=== PATIENT | male | born 1955 | race Caucasian/White ===

== ENCOUNTER 2017-09-09 16:05 | Inpatient (IN) | payer OTHER, SELFPAY ==
[2017-09-09] VITALS (11 sets, daily range): BP systolic 119–180; BP diastolic 73–110; PULSE 31–61; RESP 14–19; TEMP 36.6; O2SAT 94–100; BMI 34.9; BMI 36.1; BMI 36.2
--- NOTE | 2017-09-09 16:13 | RAD_ITS ---
STUDY: X-RAY CHEST REASON FOR EXAM: Male, 61 years old. Chest pain TECHNIQUE: Single AP portable view of the chest. COMPARISON: 02/05/2015. FINDINGS: The lungs are clear and expanded. There is no demonstrated pleural abnormality. Normal size heart. Normal mediastinum and stefanie. Normal visualized pulmonary arteries. Normal visualized aortic arch and descending thoracic aorta. Normal visualized thoracic spine. Normal visualized ribs, clavicles, and shoulders. There is no demonstrated abnormality of the visualized soft tissue structures of the upper abdomen. RAD/Chest 1 View (Portable) IMPRESSION: Normal x-ray examination of the chest. Electronically Signed: Yvon Oscar MD at 16:43 EDT , Service support ,
--- NOTE | 2017-09-09 16:13 | EKG12_ITS ---
Test Reason : CP Blood Pressure : / mmHG Vent. Rate : 051 BPM Atrial Rate : 357 BPM P-R Int : 000 ms QRS Dur : 088 ms QT Int : 394 ms P-R-T Axes : 000 035 050 degrees QTc Int : 363 ms Atrial fibrillation Abnormal ECG Confirmed by PRATIMA JENSEN MD ([id number]), acquisitions editor CHRISTINE MILLER ([id number] on 09/12/2017 3:48:08 PM Referred By: IFEOMA/ALEXANDRA Confirmed By:PRATIMA JENSEN MD
--- NOTE | 2017-09-09 16:35 | ED.VISSUMM ---
- ER Visit Summary Date of Service: 09/09/17 Chief Complaint: Palpitations History of Present Illness: The patient is a 61 M with history of coronary vascular disease status post stents by [address] George resents to the emergency palpitations. Patient states he has been having these intermittently for the past few months. He states that he has seen Dr. George, and was told that unless his heart rate was about 100 just a follow-up. The patient actually downloaded and cherelle for his iPhone. It does have a monitoring and evaluation advisor. Today, he was having symptoms and was able to get a heart rhythm. The patient was in atrial fibrillation at a rate of 50. He denies being lightheaded. He denies any chest pain. He states I just do not feel well when it happens. He has no history of atrial fibrillation. He denies any recent change in medications. Physical Examination: Vital signs reviewed General: Well-nourished, well-developed Head: Normocephalic, atraumatic Eyes: Pupils equal and reactive, extraocular muscles intact Neck, supple, no lymphadenopathy Heart: Irregular rate and rhythm Respiratory: No distress, clear bilaterally Abdomen: Soft, nontender, nondistended, no peritoneal signs Back: Nontender Extremities: Nontender, no edema, no cords Skin: Normal color no rash Neuro: Alert and oriented, no focal or lateralizing deficits Test Results: [] Emergency Department Course and Treatment: The patient presents with new onset atrial fibrillation. He was having some short pauses of approximately 3 seconds. The lowest that his heart would get in the upper 30s. He was never hypotensive. He complained of some generalized malaise, but had no chest pain or dyspnea. I do not feel this represents an acute coronary syndrome. Screening labs are unremarkable. I did discuss the patient with Dr. Coker. He was in agreement with plan for anticoagulation. We will hold the patient's Coreg. He will be admitted to telemetry for anticoagulation and further workup of his new onset A. fib. Treatment Plan: [] Disposition: Admission Impression: New onset atrial fibrillation This note was generated with [employer] software. It may contain incorrect words, spelling, and punctuation that were not noted in review of the chart prior to signing ED Disposition - Plan for ED Patient: Disposition: Acute Care Hospital [facility] Chief Complaint: Chest Pain
[2017-09-09] MEDS: 0.9% Normal Saline 1,000 ML 150 ML IV ×2 (16:42→23:56)
[2017-09-09] MEDS: Aspirin 81 MG TAB.CHEW 324 MG PO (16:42)
[2017-09-09 16:46] LABS: Absolute Lymphocyte Count 3.56 X10^3/ul (0.83-4.51); Absolute Neutrophil Count 4.4 X10^3/uL (2.0-7.7); Basophil# 0.04 X10^3/uL; Basophil% 0.4 % (0-1); Eosinophil# 0.33 X10^3/uL; Eosinophils% 3.6 % (0-5); Hematocrit 45.5 % (40-54); Hemoglobin 15.4 g/dl (13.0-16.5); Lymphocyte # 3.56 X10^3/ul (4.0); Lymphocyte % 38.3 % (19-41); Mean Corp Hgb Conc 33.8 g/gl (32-36); Mean Corpuscular Hgb 30.3 pg (27.0-32.0); Mean Corpuscular Volume 89.4 fL (80-94); Mean Platelet Vol. 10.2 fl (6.2-12.0); Monocyte# 0.93 X10^3/uL; Neutrophil # 4.39 X10^3/uL (2.7-7.7); Neutrophil % 47.3 % (47-70); POSITIVE COUNT NO; POSITIVE DIFFERENTIAL NO; POSITIVE MORPHOLOGY NO; Platelet Count 218 K/mm3 (150-450); RBC Distribution Width CV 13.5 % (11.6-14.6); RBC Distribution Width SD 43.8 fl (35.1-43.9); Red Blood Count 5.09 M/mm3 (4.6-6.2); White Blood Count 9.3 K/mm3 (4.4-11.0)
[2017-09-09 16:48] LABS: Prothrombin Time (Protime)PT. 13.1 SECONDS (11.7-14.9)
[2017-09-09 17:13] LABS: Anion Gap 6 (5-15); BUN 20 mg/dL (7-18); BUN/Creat Ratio 14.2 RATIO (10-20); Calcium,Total 9.1 mg/dL (8.5-10.1); Chloride 104 mmol/L (98-107); Creatinine, Serum 1.41 mg/dL (0.70-1.30); EST Glomerular Filtration Rate 54 mL/min (>60); Est Glom Filt Rate - Afr Amer 65 mL/min (>60); Estimated Creatinine Clearance 52.55 ml/min; Glucose 266 mg/dL (74-106); Potassium 3.6 mmol/L (3.5-5.1); Sodium Level 138 mmol/L (136-145); Thyroid Stim Hormone (TSH) 3.98 uIU/mL (0.358-3.74)
--- NOTE | 2017-09-09 18:03 | HP.PCM_ITS ---
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 transplanted heart: unspecified whether [place] or transplanted heart Associated angina: with unspecified angina Qualified Code (s): I25.119 - Atherosclerotic heart disease of [place] coronary artery with unspecified angina pectoris (6) PAD (peripheral artery disease) Status: Chronic History of Present Illness Date of Admission: 09/09/17 Chief Complaint: Palpitations The patient is a 61 year old M with PMHx of CAD s/p stent, hypertension, Type 2 DM, PAD s/p stent who follows with Dr. Robles, intermittently complaining of palpitations but any time an EKG is done in the doctor's office, it appears normal. 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 He has an cherelle on his phone which allows him to take his heart rate. 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 He used the cherelle and was told that he has atrial fibrillation. He decided to come to the ED. He denied any dizziness or orthopnea or PND or leg swelling. He also has history of chronic back pain and is on chronic pain medications. His vitals in the ED showed heart rates ranging between 39 and 57. His Blood Pressure has been stable. Labs are unremarkable except for CKD which appears to be his baseline. Chest X-ray is negative for any acute cardiopulmonary process. Past Medical History Past Medical History (Chronic Problems): Chronic Problems Type 2 diabetes mellitus (Chronic) Hypertension (Chronic) CAD (coronary artery disease) (Chronic) PAD (peripheral artery disease) (Chronic) Allergies adhesive Allergy (Verified 09/09/17 16:11) Unknown lisinopril Allergy (Verified 09/09/17 16:11) Unknown Penicillins Allergy (Verified 09/09/17 16:11) Unknown Home Medications: Ambulatory Orders Medication Instructions Recorded Aspirin [Aspirin, Baby] 81 mg PO DAILY@0800 02/07/13 Clopidogrel Bisulfate [Plavix] 75 mg PO DAILY 02/07/13 Hydrocodone/Acetaminophen [Vicodin 1 tablet PO Q4H PRN PRN 02/07/13 5/500] Lorazepam [Ativan] 0.5 mg PO BID PRN PRN 02/07/13 Nitroglycerin [Nitrostat] 0.4 mg SUBLINGUAL Q5M PRN 02/07/13 Cholecalciferol (Vitamin D3) 5,000 unit PO DAILY 01/16/14 [Vitamin D] Atorvastatin Calcium [Lipitor] 80 mg PO QHS 07/05/15 Carvedilol [Coreg (Beta Francisco)] 25 mg PO BID 07/05/15 Isosorbide Mononitrate [Isosorbide 60 mg PO DAILY 07/05/15 Mononitrate ER] Magnesium Chloride [Slow-Mag] 143 mg PO DAILY 07/05/15 Amlodipine [Norvasc] 10 mg PO DAILY #30 tablet 11/26/15 Insulin Glargine,Hum.rec.anlog 5 unit SQ QHS #1 ml 11/26/15 [Lantus] Dulaglutide [Trulicity] 1.5 mg SQ QWEEK 09/09/17 Gemfibrozil [Lopid] 300 mg PO BID 09/09/17 Hydrochlorothiazide 12.5 mg PO DAILY 09/09/17 Losartan Potassium 25 mg PO DAILY 09/09/17 Surgical History: - - right inguinal hernia, s/p stenst Psychiatric History: No pertinent psych hx Lives: Spouse/ Significant Other Smoking Status: Never smoker Tobacco Use: Non-smoker Alcohol: None Drugs: None - *Family History Paternal History Items: Heart Disease Maternal History Items: Unknown Review of Systems Constitutional: Denies: Anorexia, Chills, Fever, Night Sweats, Weakness, Weight Change Eyes: Denies: Blurred vision, Cataracts, Conjunctivae Inflammation, Double vision, Pain, Redness HEENT: Denies: Difficulty Hearing, Difficulty Swallowing, Head Aches, Hearing Changes, Sinus Congestion, Sinus Drainage Cardiovascular: Reports: Palpitations. Denies: Chest Pain, Claudication, Chest Pressure, Light Headedness, Orthopnea, Paroxysmal Noc. Dyspnea Respiratory: Denies: Cough, Hemoptysis, Shortness of breath at rest, Shortness of breath upon exertion, Sputum production Gastrointestinal: Denies: Abdominal Pain, Constipation, Hematemesis, Hematochezia, Nausea, Vomiting Genitourinary: Denies: Dysuria, Frequency, Incontinence Musculoskeletal: Denies: Joint Pain, Joint stiffness, Joint swelling, Joint Tenderness Skin: Denies: Pruritis, Rash, Wounds Neurological: Denies: Difficulty swallowing, Focal weakness, Numbness, Tingling Psychiatric: Denies: Anxiety, Depression, Homicidal Ideations, Suicidal Ideations Hematologic/ Lymphatic: Denies: Easy Bruising, Easy Bleeding VTE Information - Inpt Only VTE Present on Admission: No VTE Pharm Prophylaxis ordered?: Yes Patient Problems: Active and Suspected Problems Bradycardia (Acute) A-fib (Acute) - Physical Exam General: Alert, Oriented x3, Cooperative, No apparent distress HEENT: Atraumatic, PERRLA, EOMI, Normocephalic Oral: Moist Mucosa Neck: Supple, No JVD, Negative Carotid Bruits Lungs: Clear to auscultation, Normal air movement Cardiovascular: Regular rate, Normal S1, Normal S2, No murmurs, Irregular Rate Abdomen: Bowel Sounds Present, Soft, Non Tender, Non-Distended, No Hepato- splenomegaly Extremities: No edema Skin: No rashes, No breakdown Musculoskeletal: No Tenderness to Palpation of Joints or Extremities Lymphatic: No Cervical, Supraclavicular, or Inguinal Adenopathy Neurological: Cranial nerves II-XII grossly intact, Neuro grossly intact Psych/Mental Status: Normal Affect, Appropriate Vital Signs Temp Pulse Resp BP Pulse Ox 97.8 F 52 L 16 119/87 H 94 09/09/17 16:06 09/09/17 17:55 09/09/17 17:55 09/09/17 17:55 09/09/17 17:55 Oxygen Flow Rate (L/min) 2 Oxygen Delivery Method Nasal Cannula Weight: 104.326 kg Body Mass Index (BMI) 34.9 Laboratory Tests Past 24 Hrs 09/09/17 09/09/17 09/09/17 16:09 16:09 16:09 WBC 9.3 RBC 5.09 Hgb 15.4 Hct 45.5 MCV 89.4 MCH 30.3 MCHC 33.8 RDW 13.5 RDW Differential 43.8 Plt Count 218 MPV 10.2 Immature Gran % (Auto) 0.400 Neut % (Auto) 47.3 Lymph % (Auto) 38.3 Hardy % (Auto) 10.0 Eos % (Auto) 3.6 Baso % (Auto) 0.4 Absolute Neuts (auto) 4.4 Absolute Lymphs (auto) 3.56 Total Counted Not Reportable PT 13.1 INR 1.0 Sodium 138 Potassium 3.6 Chloride 104 Carbon Dioxide 28.0 Anion Gap 6 BUN 20 H Creatinine 1.41 H Estim Creat Clear Calc 52.55 Est GFR (MDRD) Af Amer 65 Est GFR (MDRD) Non-Af 54 L BUN/Creatinine Ratio 14.2 Glucose 266 H Calcium 9.1 Magnesium 2.0 Troponin I < 0.015 TSH 3.98 H Assessment/Plan All Active Problems Bradycardia (Acute) A-fib (Acute) Acute renal failure (Acute) 61 year old M with PMHx of CAD s/p stent, hypertension, Type 2 DM, PAD s/p stent who follows with Dr. Robles, intermittently complaining of palpitations but any time an EKG is done in the doctor's office, it appears normal. 1. Atrial fibrillation, newly diagnosed, CHADS score 3, Bradycardic, started on heparin IV drip Plan: Admit to PCU, continue on heparin drip, cardiology consult -Dr. Coker( ED already discussed with him), 2D echo, trend troponins 2. Bradycardia, EKG shows atrial fibrillation, on amlodipine and carvedilol, will hold both amlodipine and carvedilol, will follow up on 2D echo, cardiology consulted 3. Hypertension, controlled, continue home medication 4. CAD status post stent/PAD status post stent, on aspirin, Plavix, statins, isosorbide, beta-francisco on hold for now 5. Type II DM, on insulin, will continue home insulin regimen, with insulin sliding scale as well as Accu-Cheks 6. Hyperlipidemia, on statins 7. CKD stage III, creatinine is about his baseline, will continue to monitor 8. DVT prophylaxis -started on heparin drip Code Visit Inpatient E&M: 90045 Init Hosp L3
[2017-09-09 18:22] LABS: Partial Thromboplast Time 27.9 Seconds (24.1-36.2)
[2017-09-09] MEDS: Insulin Lispro 100 UNIT/ML INSULN.PEN SQ (22:27)
[2017-09-09] MEDS: Atorvastatin Calcium 80 MG Tablet PO (22:29)
[2017-09-09] MEDS: Gemfibrozil 600 MG Tablet 300 MG PO (22:30)
--- NOTE | 2017-09-09 22:45 | PCM.CONS.C ---
Problem List (1) A-fib Status: Acute Qualifiers: Atrial fibrillation type: paroxysmal Qualified Code(s): I48.0 - Paroxysmal atrial fibrillation (2) CAD (coronary artery disease) Status: Chronic Qualifiers: Coronary Disease-Associated Artery/Lesion type: unspecified vessel or lesion type [place] vs. transplanted heart: unspecified whether [place] or transplanted heart Associated angina: with unspecified angina Qualified Code(s): I25.119 - Atherosclerotic heart disease of [place] coronary artery with unspecified angina pectoris (3) S/P PTCA (percutaneous transluminal coronary angioplasty) Status: Acute (4) PAD (peripheral artery disease) Status: Chronic (5) HLD (hyperlipidemia) Status: Chronic (6) Hypertension Status: Chronic Qualifiers: Hypertension type: essential hypertension Qualified Code(s): I10 - Essential (primary) hypertension (7) Type 2 diabetes mellitus Status: Chronic Qualifiers: 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: 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 moth exterminator insulin use status Diabetes mellitus complication status: with unspecified complications Qualified Code(s): E11.8 - Type 2 diabetes mellitus with unspecified complications (8) Acute renal failure Status: Acute (9) Raynauds disease Status: Chronic Qualifiers: Raynaud?s-associated gangrene presence: without gangrene Qualified Code(s): I73.00 - Raynaud's syndrome without gangrene Reason for Consult Date of Consultation: 09/09/17 History of Present Illness: The patient is a 61 year old white 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 To the best of the patient's knowledge he has not been diagnosed with atrial fibrillation in the past. However based upon previous dobutamine stress echocardiogram report from 06/08/2011 and a previous 24-hour Holter monitor report from 06/08/2011 it appears the patient did have episodes of atrial fibrillation. He appears to be unaware of this. He states that he does sense at times his heart rate beating differently and/or slower. When this happens he does not feel good in the chest. He also notes his breathing is off . He has not necessarily had ongoing nausea, emesis, or diaphoresis. There has been no near syncope or syncope. He denies a history of orthopnea, PND, or peripheral pitting edema. He states these episodes may last for 1-2 days. They will eventually go back to normal. During these episodes he tries to become more active to increase his heart rate where he feels better. He recently purchased a portable device to attach to his smart phone . He was recording his heart rate today. He noted it was irregular and slow. He subsequently presented to [facility] ED for evaluation. There he was found to be in atrial fibrillation with a slow ventricular response with ventricular rates reported between 30 and 40 bpm. He was subsequently brought into the hospital for further evaluation and care. His initial troponin I level was negative. His initial ECG did not demonstrate additional acute ECG changes. A chest x-ray suggested no acute changes. [] Past Medical History Allergies/Adverse Reactions: Allergies adhesive Allergy (Verified 09/09/17 16:11) Unknown lisinopril Allergy (Verified 09/09/17 16:11) Unknown Penicillins Allergy (Verified 09/09/17 16:11) Unknown Home Medications: Ambulatory Orders Medication Instructions Recorded Aspirin [Aspirin, Baby] 81 mg PO DAILY@0800 02/07/13 Clopidogrel Bisulfate [Plavix] 75 mg PO DAILY 02/07/13 Hydrocodone/Acetaminophen [Vicodin 1 tablet PO Q4H PRN PRN 02/07/13 5/500] Lorazepam [Ativan] 0.5 mg PO BID PRN PRN 02/07/13 Nitroglycerin [Nitrostat] 0.4 mg SUBLINGUAL Q5M PRN 02/07/13 Cholecalciferol (Vitamin D3) 5,000 unit PO DAILY 01/16/14 [Vitamin D] Atorvastatin Calcium [Lipitor] 80 mg PO QHS 07/05/15 Carvedilol [Coreg (Beta Francisco)] 25 mg PO BID 07/05/15 Isosorbide Mononitrate [Isosorbide 60 mg PO DAILY 07/05/15 Mononitrate ER] Amlodipine [Norvasc] 10 mg PO DAILY #30 tablet 11/26/15 Insulin Glargine,Hum.rec.anlog 5 unit SQ QHS #1 ml 11/26/15 [Lantus] Dulaglutide [Trulicity] 1.5 mg SQ QWEEK 09/09/17 Gemfibrozil [Lopid] 300 mg PO BID 09/09/17 Hydrochlorothiazide 12.5 mg PO DAILY 09/09/17 Losartan Potassium 25 mg PO DAILY 09/09/17 Magnesium Oxide 500 mg PO DAILY 09/09/17 Past Medical History (Chronic Problems): Chronic Problems Type 2 diabetes mellitus (Chronic) Hypertension (Chronic) CAD (coronary artery disease) (Chronic) PAD (peripheral artery disease) (Chronic) HLD (hyperlipidemia) (Chronic) Raynauds disease (Chronic) Surgical History: angioplasty, - - right inguinal hernia, s/p stenst Psychiatric History: No pertinent psych hx - *Family History Paternal History Items: Heart Disease Maternal History Items: Unknown Lives: Spouse/ Significant Other Smoking Status: Never smoker Tobacco Use: Non-smoker Alcohol: None Drugs: None Review of Systems - Review of Systems General: Denies: Fever, Night Sweats, Fatigue Cardiovascular: Reports: Chest Discomfort, Shortness of Breath, Palpitations. Denies: Orthopnea, PND, Peripheral Edema, Lightheadedness, Dizziness, Near Syncope, Syncope Respiratory: Reports: Shortness of Breath. Denies: Cough, Sputum Production, Hemoptysis Gastrointestinal: Denies: Hematemesis, Hematochezia, Melena Genitourinary: Denies: Dysuria, Hematuria Skin: Denies: Rash Subjectve: This is a 61-year-old white male who appears resting comfortably at the moment in no acute distress. Objective: Vital Signs Temp Pulse Resp BP Pulse Ox 97.8 F 52 L 18 137/73 H 95 09/09/17 18:57 09/09/17 19:06 09/09/17 18:57 09/09/17 18:57 09/09/17 18:57 Oxygen Flow Rate (L/min) 2 Oxygen Delivery Method Room Air Weight: 238 lb Body Mass Index (BMI) 36.1 General: Healthy Appearing, Awake, Alert, Oriented x 3, Cooperative, No Acute Distress HEENT: Atraumatic, Normocephalic, PERRL, EOMI, Sclera Non Icteric Neck: Supple, Good ROM, No JVD Lungs: Clear to auscultation Cardiovascular: Irregular Rhythm, Normal S1, Normal S2 Vascular: No Carotid Bruits Abdomen: Bowel Sounds Present, Soft, Non Tender Extremities: No Cyanosis, No Clubbing, No edema Neurological: No Focal Motor or Sensory Deficit Psych/Mental Status: Appropriate, Normal Affect 09/09/17 19:25: Troponin I < 0.015 Rhythm: Atrial fibrillation with slow ventricular response EKG: As noted above Stress Test: 10/13/2015: Exercise tolerance test: Byron protocol: 5 minutes and 15 seconds: 70% predicted maximal heart rate: Peak blood pressure 158/72 mmHg: Peak MET capacity of 7 METs 06/08/2011: Dobutamine stress echocardiogram: Reported as negative for ischemia greater than 100% maximal predicted heart rate; atrial fibrillation noted at peak exercise and intermittent during recovery Cardiac Cath: [facility]: Unavailable for review PCI: [facility]: Unavailable for review Holter monitor: 06/08/2011: Sinus rhythm; occasional APD's; atrial fibrillation noted for first 10 minutes of recording and did not return ; occasional nocturnal atrial salvos which are nonconducted; rare VPD's; no ventricular tachycardia CXR: Preliminary evaluation: No acute cardiopulmonary disease process appreciated 1 please see official report Assessment/Plan 1. Atrial fibrillation with slow ventricular response The patient has atrial fibrillation with slow ventricular response which based upon symptoms and his past documentation appears to be paroxysmal. This may be related to a combination of the patient's age, hypertension, cardiovascular condition, etc. His slow ventricular response may be related to his beta-francisco therapy, however, underlying conduction system related disease cannot necessarily be excluded. At the moment based upon his slow ventricular response his beta blockers are being held. He has been placed on anticoagulant therapy with IV heparin. He will undergo laboratory follow-up, ECG follow-up, as well as an echocardiogram to evaluate his atrial size and his left ventricular size, wall motion, and systolic function. He will also undergo evaluation with a pharmacologic stress nuclear imaging study, as he states his peripheral vascular disease impairs him from walking on a treadmill, to evaluate for any obvious myocardial ischemia, based upon his symptoms and findings, that may be contributing to his underlying atrial dysrhythmias that would warrant reevaluation in the cardiac catheterization laboratory. Depending upon his clinical course, if there is no other etiology for his atrial fibrillation with slow ventricular response that is correctable, noting his need for beta-francisco therapy based upon his history of underlying CAD, etc., he may need to be considered for future permanent pacemaker placement. 2. CAD status post PCI-remote The patient states he is undergone evaluation and care at the [facility] Main campus with 2 separate diagnostic cardiac catheterization procedures requiring 2 separate PCI procedures. He has been on medical management. He will undergo evaluation care as noted above. 3. Peripheral vascular disease The patient has undergone peripheral vascular evaluation and PCI of the left lower extremity under the direction of Dr. Jakob Gomez. He states this peripheral vascular disease diagnosis does limit him with respect to his ambulatory abilities especially exercise abilities, etc. 4. Hyperlipidemia He will continue risk factor modification and care as deemed appropriate. 5. Hypertension His blood pressures will be monitored. He will continue medical management and follow-up. 6. Diabetes He will continue evaluation care per internal medicine. 7. Acute renal insufficiency His creatinine level is somewhat elevated. This will be followed during his hospitalization. His medications can be adjusted as needed. 8. Raynaud's phenomena He does state he has underlying Raynaud's phenomena. He is on amlodipine therapy at this time which may benefit him with respect to his Raynaud's phenomena as well as his other medical conditions. Comment: The above was discussed with the patient, his , and his sister. His case is also been previously discussed with the [facility] emergency department staff. This note was generated with [employer] software. It may contain incorrect words, spelling, and punctuation that were not noted in checking the note before signing.
--- NOTE | 2017-09-09 22:58 | CON.PCM_ITS ---
Problem List (1) A-fib Status: Acute Qualifiers: Atrial fibrillation type: paroxysmal Qualified Code(s): I48.0 - Paroxysmal atrial fibrillation (2) CAD (coronary artery disease) Status: Chronic Qualifiers: Coronary Disease-Associated Artery/Lesion type: unspecified vessel or lesion type [place] vs. transplanted heart: unspecified whether [place] or transplanted heart Associated angina: with unspecified angina Qualified Code (s): I25.119 - Atherosclerotic heart disease of [place] coronary artery with unspecified angina pectoris (3) S/P PTCA (percutaneous transluminal coronary angioplasty) Status: Acute (4) PAD (peripheral artery disease) Status: Chronic (5) HLD (hyperlipidemia) Status: Chronic (6) Hypertension Status: Chronic Qualifiers: Hypertension type: essential hypertension Qualified Code(s): I10 - Essential (primary) hypertension (7) Type 2 diabetes mellitus Status: Chronic Qualifiers: Diabetes mellitus chcf 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 Diabetes mellitus complication status: with unspecified complications Qualified Code(s): E11.8 - Type 2 diabetes mellitus with unspecified complications (8) Acute renal failure Status: Acute (9) Raynauds disease Status: Chronic Qualifiers: Raynaud?s-associated gangrene presence: without gangrene Qualified Code(s) : I73.00 - Raynaud's syndrome without gangrene Reason for Consult Date of Consultation: 09/09/17 History of Present Illness: The patient is a 61 year old white male [employer] employee with a past medical history of CAD, status post PCI, peripheral vascular disease status post peripheral vascular PCI of the left lower extremity, hyperlipidemia, hypertension, and diabetes mellitus who presents for evaluation of atrial fibrillation with slow ventricular response follows with Dr. Jose Robles his primary coordinator of health services. To the best of the patient's knowledge he has not been diagnosed with atrial fibrillation in the past. However based upon previous dobutamine stress echocardiogram report from 06/08/2011 and a previous 24-hour Holter monitor report from 06/08/2011 it appears the patient did have episodes of atrial fibrillation. He appears to be unaware of this. He states that he does sense at times his heart rate beating differently and/or slower. When this happens he does not feel good in the chest. He also notes his breathing is off . He has not necessarily had ongoing nausea, emesis, or diaphoresis. There has been no near syncope or syncope. He denies a history of orthopnea, PND, or peripheral pitting edema. He states these episodes may last for 1-2 days. They will eventually go back to normal. During these episodes he tries to become more active to increase his heart rate where he feels better. He recently purchased a portable device to attach to his smart phone . He was recording his heart rate today. He noted it was irregular and slow. He subsequently presented to [facility] ED for evaluation. There he was found to be in atrial fibrillation with a slow ventricular response with ventricular rates reported between 30 and 40 bpm. He was subsequently brought into the hospital for further evaluation and care. His initial troponin I level was negative. His initial ECG did not demonstrate additional acute ECG changes. A chest x-ray suggested no acute changes. [] Past Medical History Allergies/Adverse Reactions: Allergies adhesive Allergy (Verified 09/09/17 16:11) Unknown lisinopril Allergy (Verified 09/09/17 16:11) Unknown Penicillins Allergy (Verified 09/09/17 16:11) Unknown Home Medications: Ambulatory Orders Medication Instructions Recorded Aspirin [Aspirin, Baby] 81 mg PO DAILY@0800 02/07/13 Clopidogrel Bisulfate [Plavix] 75 mg PO DAILY 02/07/13 Hydrocodone/Acetaminophen [Vicodin 1 tablet PO Q4H PRN PRN 02/07/13 5/500] Lorazepam [Ativan] 0.5 mg PO BID PRN PRN 02/07/13 Nitroglycerin [Nitrostat] 0.4 mg SUBLINGUAL Q5M PRN 02/07/13 Cholecalciferol (Vitamin D3) 5,000 unit PO DAILY 01/16/14 [Vitamin D] Atorvastatin Calcium [Lipitor] 80 mg PO QHS 07/05/15 Carvedilol [Coreg (Beta Francisco)] 25 mg PO BID 07/05/15 Isosorbide Mononitrate [Isosorbide 60 mg PO DAILY 07/05/15 Mononitrate ER] Amlodipine [Norvasc] 10 mg PO DAILY #30 tablet 11/26/15 Insulin Glargine,Hum.rec.anlog 5 unit SQ QHS #1 ml 11/26/15 [Lantus] Dulaglutide [Trulicity] 1.5 mg SQ QWEEK 09/09/17 Gemfibrozil [Lopid] 300 mg PO BID 09/09/17 Hydrochlorothiazide 12.5 mg PO DAILY 09/09/17 Losartan Potassium 25 mg PO DAILY 09/09/17 Magnesium Oxide 500 mg PO DAILY 09/09/17 Past Medical History (Chronic Problems): Chronic Problems Type 2 diabetes mellitus (Chronic) Hypertension (Chronic) CAD (coronary artery disease) (Chronic) PAD (peripheral artery disease) (Chronic) HLD (hyperlipidemia) (Chronic) Raynauds disease (Chronic) Surgical History: angioplasty, - - right inguinal hernia, s/p stenst Psychiatric History: No pertinent psych hx - *Family History Paternal History Items: Heart Disease Maternal History Items: Unknown Lives: Spouse/ Significant Other Smoking Status: Never smoker Tobacco Use: Non-smoker Alcohol: None Drugs: None Review of Systems - Review of Systems General: Denies: Fever, Night Sweats, Fatigue Cardiovascular: Reports: Chest Discomfort, Shortness of Breath, Palpitations. Denies: Orthopnea, PND, Peripheral Edema, Lightheadedness, Dizziness, Near Syncope, Syncope Respiratory: Reports: Shortness of Breath. Denies: Cough, Sputum Production, Hemoptysis Gastrointestinal: Denies: Hematemesis, Hematochezia, Melena Genitourinary: Denies: Dysuria, Hematuria Skin: Denies: Rash Subjectve: This is a 61-year-old white male who appears resting comfortably at the moment in no acute distress. Objective: Vital Signs Temp Pulse Resp BP Pulse Ox 97.8 F 52 L 18 137/73 H 95 09/09/17 18:57 09/09/17 19:06 09/09/17 18:57 09/09/17 18:57 09/09/17 18:57 Oxygen Flow Rate (L/min) 2 Oxygen Delivery Method Room Air Weight: 238 lb Body Mass Index (BMI) 36.1 General: Healthy Appearing, Awake, Alert, Oriented x 3, Cooperative, No Acute Distress HEENT: Atraumatic, Normocephalic, PERRL, EOMI, Sclera Non Icteric Neck: Supple, Good ROM, No JVD Lungs: Clear to auscultation Cardiovascular: Irregular Rhythm, Normal S1, Normal S2 Vascular: No Carotid Bruits Abdomen: Bowel Sounds Present, Soft, Non Tender Extremities: No Cyanosis, No Clubbing, No edema Neurological: No Focal Motor or Sensory Deficit Psych/Mental Status: Appropriate, Normal Affect 09/09/17 19:25: Troponin I < 0.015 Rhythm: Atrial fibrillation with slow ventricular response EKG: As noted above Stress Test: 10/13/2015: Exercise tolerance test: Byron protocol: 5 minutes and 15 seconds: 70 % predicted maximal heart rate: Peak blood pressure 158/72 mmHg: Peak MET capacity of 7 METs 06/08/2011: Dobutamine stress echocardiogram: Reported as negative for ischemia greater than 100% maximal predicted heart rate; atrial fibrillation noted at peak exercise and intermittent during recovery Cardiac Cath: [facility]: Unavailable for review PCI: [facility]: Unavailable for review Holter monitor: 06/08/2011: Sinus rhythm; occasional APD's; atrial fibrillation noted for first 10 minutes of recording and did not return ; occasional nocturnal atrial salvos which are nonconducted; rare VPD's; no ventricular tachycardia CXR: Preliminary evaluation: No acute cardiopulmonary disease process appreciated 1 please see official report Assessment/Plan 1. Atrial fibrillation with slow ventricular response The patient has atrial fibrillation with slow ventricular response which based upon symptoms and his past documentation appears to be paroxysmal. This may be related to a combination of the patient's age, hypertension, cardiovascular condition, etc. His slow ventricular response may be related to his beta-francisco therapy, however, underlying conduction system related disease cannot necessarily be excluded. At the moment based upon his slow ventricular response his beta blockers are being held. He has been placed on anticoagulant therapy with IV heparin. He will undergo laboratory follow-up, ECG follow-up, as well as an echocardiogram to evaluate his atrial size and his left ventricular size, wall motion, and systolic function. He will also undergo evaluation with a pharmacologic stress nuclear imaging study, as he states his peripheral vascular disease impairs him from walking on a treadmill, to evaluate for any obvious myocardial ischemia, based upon his symptoms and findings, that may be contributing to his underlying atrial dysrhythmias that would warrant reevaluation in the cardiac catheterization laboratory. Depending upon his clinical course, if there is no other etiology for his atrial fibrillation with slow ventricular response that is correctable, noting his need for beta-francisco therapy based upon his history of underlying CAD, etc. , he may need to be considered for future permanent pacemaker placement. 2. CAD status post PCI-remote The patient states he is undergone evaluation and care at the [facility] Main campus with 2 separate diagnostic cardiac catheterization procedures requiring 2 separate PCI procedures. He has been on medical management. He will undergo evaluation care as noted above. 3. Peripheral vascular disease The patient has undergone peripheral vascular evaluation and PCI of the left lower extremity under the direction of Dr. Jakob Gomez. He states this peripheral vascular disease diagnosis does limit him with respect to his ambulatory abilities especially exercise abilities, etc. 4. Hyperlipidemia He will continue risk factor modification and care as deemed appropriate. 5. Hypertension His blood pressures will be monitored. He will continue medical management and follow-up. 6. Diabetes He will continue evaluation care per internal medicine. 7. Acute renal insufficiency His creatinine level is somewhat elevated. This will be followed during his hospitalization. His medications can be adjusted as needed. 8. Raynaud's phenomena He does state he has underlying Raynaud's phenomena. He is on amlodipine therapy at this time which may benefit him with respect to his Raynaud's phenomena as well as his other medical conditions. Comment: The above was discussed with the patient, his , and his sister. His case is also been previously discussed with the [facility] emergency department staff. This note was generated with IFTTTation software. It may contain incorrect words, spelling, and punctuation that were not noted in checking the note before signing.
[2017-09-09] MEDS: Bisacodyl 5 MG Tablet PO (23:02)
[2017-09-10] VITALS (24 sets, daily range): BP systolic 106–135; BP diastolic 58–85; PULSE 30–73; RESP 12–16; TEMP 36.4–36.7; O2SAT 92–97
[2017-09-10 01:41] LABS: Bedside Glucose 154 mg/dL (70-110)
[2017-09-10 05:45] LABS: Hematocrit 43.8 % (40-54); Hemoglobin 14.2 g/dl (13.0-16.5); Mean Corp Hgb Conc 32.4 g/gl (32-36); Mean Corpuscular Hgb 29.3 pg (27.0-32.0); Mean Corpuscular Volume 90.5 fL (80-94); Mean Platelet Vol. 9.9 fl (6.2-12.0); Platelet Count 176 K/mm3 (150-450); RBC Distribution Width CV 13.5 % (11.6-14.6); RBC Distribution Width SD 44.5 fl (35.1-43.9); Red Blood Count 4.84 M/mm3 (4.6-6.2); White Blood Count 9.2 K/mm3 (4.4-11.0)
--- NOTE | 2017-09-10 05:55 | EKG12_ITS ---
Test Reason : AM EKG Blood Pressure : / mmHG Vent. Rate : 070 BPM Atrial Rate : 070 BPM P-R Int : 184 ms QRS Dur : 096 ms QT Int : 394 ms P-R-T Axes : 057 038 045 degrees QTc Int : 425 ms Normal sinus rhythm Normal ECG When compared with ECG of 09-SEP-2017 19:04, MANUAL COMPARISON REQUIRED, DATA IS UNCONFIRMED Confirmed by CAMILA JAEGER, PRATIMA ([id number]), book editor CHRISTINE MILLER ([id number]) on 09/13/2017 10:16:28 AM Referred By: TAMRA Confirmed By:PRATIMA JENSEN MD
--- NOTE | 2017-09-10 05:55 | ECHOD_ITS ---
Reason For Study: Dyspnea/SOB Procedure This was a 2D Doppler, Color Flow transthoracic echocardiogram. Exam performed portable in patient room. Left Ventricle Normal LV size. Left ventricular systolic function is normal. The estimated ejection fraction is 60 %. No evidence for diastolic dysfunction. No regional wall motion abnormalities noted. Right Ventricle Normal RV size. Normal systolic function. Atria Normal left atrium. Normal right atrium. Mitral Valve Normal mitral valve. Tricuspid Valve Normal tricuspid valve. Unable to estimate RV systolic pressure due to inadequate jet, pulmonary artery pressure probably normal. Aortic Valve Normal aortic valve. Trisinus/trileaflet aortic valve. Pulmonic Valve Normal pulmonic valve. Great Vessels Normal aortic root. The pulmonary artery is normal size. Normal inferior vena cava. Pericardium/Pleural No pericardial effusion. MMode/2D Measurements & Calculations LVIDd: 4.8 cm IVSd: 0.93 cm Ao root diam: 3.5 cm LVIDs: 3.4 cm LVPWd: 0.92 cm RVDd: 2.9 cm FS: 29.6 % LAV(MOD-bp): 22.9 ml EDV(MOD-sp4): 72.2 ml SV(MOD-sp4): 39.3 ml LAV(MOD-bp) Indexed: 10.4 ml/m2 ESV(MOD-sp4): 32.9 ml LAV(MOD-sp2): 32.5 ml EF(MOD-sp4): 54.4 % LAV(MOD-sp4): 15.2 ml LA A4 area: 9.3 cm2 RA A4 area: 9.4 cm2 Doppler Measurements & Calculations MV E max ozzy: 71.8 cm/sec Lat Peak E' Ozzy: 8.1 cm/sec Med Peak E' Ozzy: 6.2 cm/sec MV A max ozzy: 61.2 cm/sec E/E' lat: 8.9 E/E' med: 11.6 MV E/A: 1.2 Ao V2 max: 106.0 cm/sec LV V1 max: 87.2 cm/sec PA V2 max: 67.3 cm/sec Ao max P.5 mmHg LV V1 max P.0 mmHg Ao V2 mean: 71.6 cm/sec Ao mean P.4 mmHg Ao V2 VTI: 19.8 cm Interpretation Summary Normal LV size. Left ventricular systolic function is normal. The estimated ejection fraction is 60 %. No evidence for diastolic dysfunction. Ordering Physician: Felecia Roach Referring Physician: Andrew Gomez Performed By: Milagro Contreras, WILIAM, RVT
[2017-09-10 05:59] LABS: International Normalized Ratio 1.1; Prothrombin Time (Protime)PT. 14.1 SECONDS (11.7-14.9)
[2017-09-10 06:01] LABS: Partial Thromboplast Time 69.2 Seconds (24.1-36.2)
[2017-09-10 06:09] LABS: Anion Gap 7 (5-15); BUN 20 mg/dL (7-18); BUN/Creat Ratio 16.1 RATIO (10-20); Calcium,Total 8.3 mg/dL (8.5-10.1); Chloride 107 mmol/L (98-107); Creatinine, Serum 1.24 mg/dL (0.70-1.30); EST Glomerular Filtration Rate 63 mL/min (>60); Est Glom Filt Rate - Afr Amer 76 mL/min (>60); Estimated Creatinine Clearance 59.76 ml/min; Glucose 212 mg/dL (74-106); Potassium 3.8 mmol/L (3.5-5.1); Sodium Level 142 mmol/L (136-145)
[2017-09-10] MEDS: Clopidogrel Bisulfate 75 MG Tablet PO (06:22)
[2017-09-10] MEDS: Aspirin 81 MG TAB.CHEW PO (06:22)
[2017-09-10] MEDS: Losartan Potassium 25 MG Tablet PO (06:22)
[2017-09-10 06:25] LABS: Scan Indicated on CBC? Y/N NO
[2017-09-10] MEDS: 0.9% Normal Saline 1,000 ML 150 ML IV (06:33)
--- NOTE | 2017-09-10 08:03 | EKG12_ITS ---
Test Reason : RHY CHANGE Blood Pressure : / mmHG Vent. Rate : 067 BPM Atrial Rate : 067 BPM P-R Int : 222 ms QRS Dur : 098 ms QT Int : 398 ms P-R-T Axes : 056 043 048 degrees QTc Int : 420 ms Sinus rhythm with 1st degree A-V block Otherwise normal ECG When compared with ECG of 10-SEP-2017 08:04, MANUAL COMPARISON REQUIRED, DATA IS UNCONFIRMED Confirmed by CAMILA JAEGER, PRATIMA ([id number]), editor news CHRISTINE MILLER ([id number]) on 09/13/2017 10:14:54 AM Referred By: KONG Confirmed By:PRATIMA JENSEN MD
[2017-09-10 08:35] LABS: Bedside Glucose 200 mg/dL (70-110)
[2017-09-10] MEDS: Isosorbide Mononitrate 60 MG Tablet PO (10:35)
[2017-09-10] MEDS: Gemfibrozil 600 MG Tablet 300 MG PO ×2 (10:35→22:39)
[2017-09-10] MEDS: Magnesium Oxide 400 MG Tablet PO ×2 (10:36→16:39)
[2017-09-10] MEDS: HYDROCHLOROTHIAZIDE 12.5 MG CAPSULE PO (10:36)
[2017-09-10 11:20] LABS: Bedside Glucose 196 mg/dL (70-110)
--- NOTE | 2017-09-10 12:03 | STRESSREP ---
Stress Test Report Pharmacologic myocardial perfusion stress test. 61-year-old man with a history of atrial fibrillation and coronary artery disease. Stress protocol: Resting EKG demonstrates normal sinus rhythm with a rate of 66 bpm normal intervals are noted. 0.4 mg regadenoson was infused per usual protocol followed by rapid intravenous saline flush injection continuous EKG monitoring was performed. The patient maintained sinus rhythm throughout the recording. The maximum heart rate attained was 88 bpm which was 55% of maximum predicted heart rate the maximum workload was 1 metabolic equivalent. At rest there were no ST or T-wave changes noted suggest abnormal flow reserve at peak infusion no ST or T-wave changes were noted suggest abnormal flow reserve. The resting blood pressure was 162/92 with a final blood pressure 140/82. Myocardial perfusion protocol. 14.3 mCi of technetium 99m sestamibi was injected at rest. 0.4 mg regadenoson was infused per usual protocol peak infusion 44.6 mCi of technetium 99m sestamibi was injected stress images were obtained stress and rest images were reconstructed and compared in the short axis vertical long horizontal long axis. Gated images were also obtained Perfusion SPECT analysis. Review of the stress images demonstrate normal perfusion noted in the septum anterior wall and inferior wall. A portion of the inferolateral wall of the medium size has a defect present on the stress images with moderate improvement on the resting images suggesting a moderate amount of inferolateral ischemia. Gated SPECT analysis: The gated ejection fraction is noted to be 59%. Conclusion: Abnormal pharmacologic myocardial perfusion stress test with evidence of inferolateral ischemia and a moderate zone. Preserved ejection fraction.
--- NOTE | 2017-09-10 12:09 | PCM.PN.CARD ---
Subjectve: The patient is awake and alert. He denies ongoing chest discomfort or difficulty breathing at this time. He states he was able to sense his rhythm returning to normal rhythm. When it does he feels better. Objective: Vital Signs Temp Pulse Resp BP Pulse Ox 98.0 F 71 16 135/85 H 94 09/10/17 10:36 09/10/17 10:50 09/10/17 10:36 09/10/17 10:36 09/10/17 10:36 Oxygen Flow Rate (L/min) 2 Oxygen Delivery Method Room Air Weight: 238 lb 8.642 oz Body Mass Index (BMI) 36.1 Intake and Output for Last 24 Hours 09/08/17 09/09/17 09/10/17 23:59 23:59 23:59 Intake Total 1186.9 / 1186.9 1015 / 1015 Balance 1186.9 / 1186.9 1015 / 1015 General: Awake, Alert, Oriented x 3, Cooperative, No Acute Distress, Obese HEENT: Atraumatic, Normocephalic, PERRL, EOMI, Sclera Non Icteric Oral: Moist Mucosa Neck: Supple, Good ROM, No JVD Lungs: Clear to auscultation Cardiovascular: Regular Rhythm, Normal S1, Normal S2 Vascular: No Carotid Bruits Abdomen: Bowel Sounds Present, Soft Extremities: No Cyanosis, No Clubbing, No edema Neurological: No Focal Motor or Sensory Deficit Psych/Mental Status: Appropriate, Normal Affect 09/09/17 19:25: Troponin I < 0.015 09/09/17 22:05: Troponin I < 0.015 09/10/17 00:20: APTT 60.0 H 09/10/17 05:10: Sodium 142, Potassium 3.8, Chloride 107, Carbon Dioxide 28.0, Anion Gap 7, BUN 20 H, Creatinine 1.24, Est GFR (MDRD) Af Amer 76, Est GFR (MDRD) Non-Af 63, BUN/Creatinine Ratio 16.1, Glucose 212 H, Calcium 8.3 L 09/10/17 05:10: WBC 9.2, RBC 4.84, Hgb 14.2, Hct 43.8, MCV 90.5, MCH 29.3, MCHC 32.4, RDW 13.5, RDW Differential 44.5 H, Plt Count 176, MPV 9.9 09/10/17 05:10: PT 14.1, INR 1.1, APTT 69.2 H Rhythm: Sinus rhythm EKG: Sinus rhythm ECHO: Pending Stress Test: Preliminary report: Findings compatible with inferolateral myocardial ischemia: Please see official report Medical Necessity - Tobacco Use Smoking Status: Never smoker Tobacco Use: Non-smoker Assessment/Plan 1. Atrial fibrillation with slow ventricular response The patient has atrial fibrillation with slow ventricular response which based upon symptoms and his past documentation appears to be paroxysmal. This may be related to a combination of the patient's age, hypertension, cardiovascular condition, etc. His slow ventricular response may be related to his beta-nico therapy, however, underlying conduction system related disease cannot necessarily be excluded. At the moment based upon his slow ventricular response his beta blockers are being held. He has been placed on anticoagulant therapy with IV heparin. Has undergone additional evaluation with a pharmacologic stress nuclear imaging study. This has raised concerns of inferolateral myocardial ischemia. Thus he has been recommended for further evaluation with diagnostic cardiac catheterization. The procedure and risks were discussed with him. He was agreeable to this approach. Depending upon his clinical course, if there is no other etiology for his atrial fibrillation with slow ventricular response that is correctable, noting his need for beta-nico therapy based upon his history of underlying CAD, etc., he may need to be considered for future permanent pacemaker placement. 2. CAD status post PCI-remote The patient states he is undergone evaluation and care at the [facility] Main campus with 2 separate diagnostic cardiac catheterization procedures requiring 2 separate PCI procedures. He has been on medical management. He will continue medical management as deemed appropriate during this time. He will undergo evaluation as noted above. 3. Peripheral vascular disease The patient has undergone peripheral vascular evaluation and PCI of the left lower extremity under the direction of Dr. Jakob Gomez. He states this peripheral vascular disease diagnosis does limit him with respect to his ambulatory abilities especially exercise abilities, etc. 4. Hyperlipidemia He will continue risk factor modification and care as deemed appropriate. 5. Hypertension His blood pressures will be monitored. He will continue medical management and follow-up. 6. Diabetes He will continue evaluation care per internal medicine. 7. Acute renal insufficiency His creatinine level is improved today. This will be followed during his hospitalization. His medications can be adjusted as needed. 8. Raynaud's phenomena He does state he has underlying Raynaud's phenomena. He is on amlodipine therapy at this time which may benefit him with respect to his Raynaud's phenomena as well as his other medical conditions. Comment: The above was discussed with the patient, his , and his sister. His case is also been discussed with the [facility] staff. This note was generated with [employer] dictation software. It may contain incorrect words, spelling, and punctuation that were not noted in checking the note before signing.
--- NOTE | 2017-09-10 12:13 | PN.CARD_ITS ---
Subjectve: The patient is awake and alert. He denies ongoing chest discomfort or difficulty breathing at this time. He states he was able to sense his rhythm returning to normal rhythm. When it does he feels better. Objective: Vital Signs Temp Pulse Resp BP Pulse Ox 98.0 F 71 16 135/85 H 94 09/10/17 10:36 09/10/17 10:50 09/10/17 10:36 09/10/17 10:36 09/10/17 10:36 Oxygen Flow Rate (L/min) 2 Oxygen Delivery Method Room Air Weight: 238 lb 8.642 oz Body Mass Index (BMI) 36.1 Intake and Output for Last 24 Hours 09/08/17 09/09/17 09/10/17 23:59 23:59 23:59 Intake Total 1186.9 / 1186.9 1015 / 1015 Balance 1186.9 / 1186.9 1015 / 1015 General: Awake, Alert, Oriented x 3, Cooperative, No Acute Distress, Obese HEENT: Atraumatic, Normocephalic, PERRL, EOMI, Sclera Non Icteric Oral: Moist Mucosa Neck: Supple, Good ROM, No JVD Lungs: Clear to auscultation Cardiovascular: Regular Rhythm, Normal S1, Normal S2 Vascular: No Carotid Bruits Abdomen: Bowel Sounds Present, Soft Extremities: No Cyanosis, No Clubbing, No edema Neurological: No Focal Motor or Sensory Deficit Psych/Mental Status: Appropriate, Normal Affect 09/09/17 19:25: Troponin I < 0.015 09/09/17 22:05: Troponin I < 0.015 09/10/17 00:20: APTT 60.0 H 09/10/17 05:10: Sodium 142, Potassium 3.8, Chloride 107, Carbon Dioxide 28.0, Anion Gap 7, BUN 20 H, Creatinine 1.24, Est GFR (MDRD) Af Amer 76, Est GFR (MDRD ) Non-Af 63, BUN/Creatinine Ratio 16.1, Glucose 212 H, Calcium 8.3 L 09/10/17 05:10: WBC 9.2, RBC 4.84, Hgb 14.2, Hct 43.8, MCV 90.5, MCH 29.3, MCHC 32.4, RDW 13.5, RDW Differential 44.5 H, Plt Count 176, MPV 9.9 09/10/17 05:10: PT 14.1, INR 1.1, APTT 69.2 H Rhythm: Sinus rhythm EKG: Sinus rhythm ECHO: Pending Stress Test: Preliminary report: Findings compatible with inferolateral myocardial ischemia: Please see official report Medical Necessity - Tobacco Use Smoking Status: Never smoker Tobacco Use: Non-smoker Assessment/Plan 1. Atrial fibrillation with slow ventricular response The patient has atrial fibrillation with slow ventricular response which based upon symptoms and his past documentation appears to be paroxysmal. This may be related to a combination of the patient's age, hypertension, cardiovascular condition, etc. His slow ventricular response may be related to his beta-nico therapy, however, underlying conduction system related disease cannot necessarily be excluded. At the moment based upon his slow ventricular response his beta blockers are being held. He has been placed on anticoagulant therapy with IV heparin. Has undergone additional evaluation with a pharmacologic stress nuclear imaging study. This has raised concerns of inferolateral myocardial ischemia. Thus he has been recommended for further evaluation with diagnostic cardiac catheterization. The procedure and risks were discussed with him. He was agreeable to this approach. Depending upon his clinical course, if there is no other etiology for his atrial fibrillation with slow ventricular response that is correctable, noting his need for beta-nico therapy based upon his history of underlying CAD, etc. , he may need to be considered for future permanent pacemaker placement. 2. CAD status post PCI-remote The patient states he is undergone evaluation and care at the [facility] Main campus with 2 separate diagnostic cardiac catheterization procedures requiring 2 separate PCI procedures. He has been on medical management. He will continue medical management as deemed appropriate during this time. He will undergo evaluation as noted above. 3. Peripheral vascular disease The patient has undergone peripheral vascular evaluation and PCI of the left lower extremity under the direction of Dr. Jakob Gomez. He states this peripheral vascular disease diagnosis does limit him with respect to his ambulatory abilities especially exercise abilities, etc. 4. Hyperlipidemia He will continue risk factor modification and care as deemed appropriate. 5. Hypertension His blood pressures will be monitored. He will continue medical management and follow-up. 6. Diabetes He will continue evaluation care per internal medicine. 7. Acute renal insufficiency His creatinine level is improved today. This will be followed during his hospitalization. His medications can be adjusted as needed. 8. Raynaud's phenomena He does state he has underlying Raynaud's phenomena. He is on amlodipine therapy at this time which may benefit him with respect to his Raynaud's phenomena as well as his other medical conditions. Comment: The above was discussed with the patient, his , and his sister. His case is also been discussed with the [facility] staff. This note was generated with [employer] dictation software. It may contain incorrect words, spelling, and punctuation that were not noted in checking the note before signing.
--- NOTE | 2017-09-10 12:35 | CASEMGMT ---
According to [facility] website, the following are in-network tertiary facilities: [facility], [place], [facility], [place], [facility], [facility], [facility], [place], [facility], and . Vidal CORMIER CM
[2017-09-10] MEDS: 0.9% Normal Saline 1,000 ML 75 ML IV (14:11)
--- NOTE | 2017-09-10 14:17 | PCM.PROGNOTE ---
Patient Problems: Active and Suspected Problems Bradycardia (Acute) A-fib (Acute) S/P PTCA (percutaneous transluminal coronary angioplasty) (Acute) Subjective: Pt resting comfortably in bed pre cath. No further palpitations or heaviness. Not SOB. - Physical Exam General: Alert, Oriented x3, Cooperative HEENT: Atraumatic, PERRLA, EOMI, Normocephalic Neck: Supple, No JVD, Negative Carotid Bruits Lungs: Clear to auscultation, Normal air movement Cardiovascular: Regular rate, No murmurs Abdomen: Bowel Sounds Present, Soft, Non Tender Extremities: No edema, Capillary Refill Less than 3 Seconds Skin: No rashes, No breakdown Musculoskeletal: No Tenderness to Palpation of Joints or Extremities Neurological: Cranial nerves II-XII grossly intact Psych/Mental Status: Normal Affect, Appropriate, Alert and oriented to time, place, person, mood and affect Vital Signs Temp Pulse Resp BP Pulse Ox 97.5 F L 68 16 111/66 93 09/10/17 14:15 09/10/17 14:15 09/10/17 14:15 09/10/17 14:15 09/10/17 14:15 Oxygen Flow Rate (L/min) 2 Oxygen Delivery Method Room Air Weight: 108.2 kg Body Mass Index (BMI) 36.1 Intake and Output for Last 24 Hours 09/08/17 09/09/17 09/10/17 23:59 23:59 23:59 Intake Total 1186.9 / 1186.9 2054 Balance 1186.9 / 1186.9 2054 Laboratory Tests Past 24 Hrs 09/09/17 09/09/17 09/10/17 19:25 22:05 00:20 WBC RBC Hgb Hct MCV MCH MCHC RDW RDW Differential Plt Count MPV PT INR APTT 60.0 H Sodium Potassium Chloride Carbon Dioxide Anion Gap BUN Creatinine Estim Creat Clear Calc Est GFR (MDRD) Af Amer Est GFR (MDRD) Non-Af BUN/Creatinine Ratio Glucose Calcium Troponin I < 0.015 < 0.015 Free T4 09/10/17 09/10/17 09/10/17 05:10 05:10 05:10 WBC 9.2 RBC 4.84 Hgb 14.2 Hct 43.8 MCV 90.5 MCH 29.3 MCHC 32.4 RDW 13.5 RDW Differential 44.5 H Plt Count 176 MPV 9.9 PT 14.1 INR 1.1 APTT 69.2 H Sodium 142 Potassium 3.8 Chloride 107 Carbon Dioxide 28.0 Anion Gap 7 BUN 20 H Creatinine 1.24 Estim Creat Clear Calc 59.76 Est GFR (MDRD) Af Amer 76 Est GFR (MDRD) Non-Af 63 BUN/Creatinine Ratio 16.1 Glucose 212 H Calcium 8.3 L Troponin I Free T4 09/10/17 05:10 WBC RBC Hgb Hct MCV MCH MCHC RDW RDW Differential Plt Count MPV PT INR APTT Sodium Potassium Chloride Carbon Dioxide Anion Gap BUN Creatinine Estim Creat Clear Calc Est GFR (MDRD) Af Amer Est GFR (MDRD) Non-Af BUN/Creatinine Ratio Glucose Calcium Troponin I Free T4 1.20 POC Glucose 09/10/17 09/10/17 09/09/17 10:57 06:46 22:26 POC Glucose 196 H 200 H 154 H Medical Necessity - Tobacco Use Smoking Status: Never smoker Tobacco Use: Non-smoker Assessment/Plan All Active Problems Bradycardia (Acute) A-fib (Acute) S/P PTCA (percutaneous transluminal coronary angioplasty) (Acute) Acute renal failure (Acute) 1. Chest heaviness with abnormal stress test and underlying CAD - Cath today - multivessel CAD with high grade stenosis of the LAD/circ and stenosis distal to the patent prior stents per discussion with Dr. Coker. Tx to [facility] initiated. Contine asa, ARB, statin, low dose coreg. 2. Paroxysmal AFib with bradycardia - converted with held coret, restarted at much lower dose. Stable. 3. T2DM - lantus, ssi, trulicity held. 4. PAD - hx leg stents. 5. HTN - stable. DVT ppx: heparin drip discontinued. will need cabg DC planning: Tx to [facility] when bed available. Accepted by Dr. Rebolledo.
[2017-09-10] MEDS: HYDROcodone Bitartrate/Apap 5/325 Tablet PO (16:38)
[2017-09-10] MEDS: Carvedilol 3.125 MG TABLET PO (16:39)
[2017-09-10 16:55] LABS: Bedside Glucose 140 mg/dL (70-110)
--- NOTE | 2017-09-10 17:08 | CL.D_ITS ---
Patient Name: NOMAN STONE Study Date: 09/10/2017 Performing: Tex Coker MD Ht: 68 inches 173 cm : 1955 Wt: 238.4 lbs 108 kg Age: 61 Gender: male BSA: 2.2 PROCEDURE(S) PERFORMED [id number] CLINICAL PROFILE AND INDICATIONS Indications: Cardiac Arrythmia Heart Failure: None Stress/Imaging Stress Test w/SPECT MPI: Yes Result: PositiveStress Test with SPECT MPI: Positive Angina Classification Anginal Classification w/in 2 Weeks: CCS IV CAD Presentations: Other: Chest discomfort; shortness of breath; palpitations CONCLUSIONS Elevated Left Ventricular End Diastolic Pressure Normal LV size, wall motion,and systolic function LVEF: by LV gram 55 % Sycuan Multivessel CAD RECOMMENDATIONS Risk factor modification Medical therapy Surgery consult for coronary revascularization DESCRIPTION OF PROCEDURE The patient arrived to the procedure lab. The risks and benefits of the procedure as well as a full d escription of our services here and current unavailability of surgical backup were fully explained to the patient and/or their significant other prior to the catheterization. The Timeout was completed, verifying the correct patient and procedure. The patient's procedural site was prepped and draped in the usual fashion. Local anesthetic was given subcutaneously to right groin region with Lidocaine 2%. Using a modified Seldinger technique, arterial access was obtained via the right femoral artery, a 4 Fr sheath was inserted Left Coronary Artery selective angiography was performed in multiple views us ing a 4 Fr. JL5 catheter. Left Coronary Artery selective angiography was performed in multiple views using a 4 Fr. JL4 catheter. Right Coronary Artery selective angiography was then performed in multipl e views using a 4 Fr. 3DRC catheter. Left Ventriculography was performed in HICKEY projection using a 4 Fr. Pigtail catheter. LV to AO pullback pressures were then recorded. CORONARY ANGIOGRAPHY DOMINANCE: Right Dominant LEFT HEART ASSESSMENT Left Ventricular Ejection Fraction: by LV Gram 55 % Normal LV wall motion Elevated Left Ventricular End Diastolic Pressure LVEDP: 25 mmHg LEFT MAIN: Mild calcification, Mild luminal irregularities LEFT ANTERIOR DECENDING ARTERY: PROX LAD: Mild calcification, 50 % Stenosis MID LAD: 85 % Stenosis DIAGONAL 1: Proximal - Mild luminal irregularities CIRCUMFLEX ARTERY: PROX CIRC: Mild calcification MID CIRC: Mild luminal irregularities OM 1: Proximal - small caliber vessel: subtotally occluded OM 2: Proximal - 85 % Stenosis RIGHT CORONARY ARTERY: PROX RCA: Previously placed stent has an instent minimal luminal irregularities MID RCA: Previously placed stent has an instent minimal luminal irregularities DISTAL RCA: Previously placed stent has an instent minimal luminal irregularities RT PDA: Mid - Serial: Eccentric: 85 % Stenosis RIGHT AV SEGMENT: Ostial: subtotal occlusion COLLATERAL FLOW: Collateral flow from Left to Right VALVE FINDINGS: Normal Aortic Valve function Normal Mitral Valve function AORTIC ROOT: Angiographically normal COMPLICATIONS No Complications PROCEDURE MEDICATIONS Versed 1 mg IV Fentanyl 50 mcg IV Fentanyl 50 mcg IV Oxygen: 2 L/min via nasal cannula SUMMARY OF HEMODYNAMIC DATA Time AIR REST ECG 12:36:01 AO 125/88 (105) SA 12:55:17 LV 132/15, 32 13:10:30 LV 132/16, 25 13:10:37 LV 137/17, 25 13:11:16 LV 141/12, 30 13:13:02 LVp 133/10, 28 13:13:13 AOp 144/84 (108) 13:13:18 Signed By Tex Coker MD On 09/10/2017 17:06:33 Tex Coker MD
--- NOTE | 2017-09-10 17:24 | PCM.DC ---
- Discharge Diagnoses Current Active Problems: Current Active and Chronic Problems Bradycardia (Acute) A-fib (Acute) Type 2 diabetes mellitus (Chronic) Hypertension (Chronic) CAD (coronary artery disease) (Chronic) PAD (peripheral artery disease) (Chronic) S/P PTCA (percutaneous transluminal coronary angioplasty) (Acute) HLD (hyperlipidemia) (Chronic) Raynauds disease (Chronic) You will use the following diet at home:: Other - as directed Your food should be the consistency of: Regular Your liquids should be the consistency of: Regular/Thin Discharge Activity: - - as directed Allergies/Adverse Reactions: Allergies adhesive Allergy (Verified 09/09/17 16:11) Unknown lisinopril Allergy (Verified 09/09/17 16:11) Unknown Penicillins Allergy (Verified 09/09/17 16:11) Unknown Medications to take at Discharge Aspirin [Aspirin, Baby] 81 mg PO DAILY@0800 02/07/13 Clopidogrel Bisulfate [Plavix] 75 mg PO DAILY 02/07/13 Hydrocodone/Acetaminophen [Vicodin 5/500] 1 tablet PO Q4H PRN PRN 02/07/13 Lorazepam [Ativan] 0.5 mg PO BID PRN PRN 02/07/13 Nitroglycerin [Nitrostat] 0.4 mg SUBLINGUAL Q5M PRN 02/07/13 Cholecalciferol (Vitamin D3) [Vitamin D] 5,000 unit PO DAILY 01/16/14 Atorvastatin Calcium [Lipitor] 80 mg PO QHS 07/05/15 Carvedilol [Coreg (Beta Francisco)] 25 mg PO BID 07/05/15 Isosorbide Mononitrate [Isosorbide Mononitrate ER] 60 mg PO DAILY 07/05/15 Amlodipine [Norvasc] 10 mg PO DAILY #30 tablet 11/26/15 Insulin Glargine,Hum.rec.anlog [Lantus] 5 unit SQ QHS #1 ml 11/26/15 Dulaglutide [Trulicity] 1.5 mg SQ QWEEK 09/09/17 Gemfibrozil [Lopid] 300 mg PO BID 09/09/17 Hydrochlorothiazide 12.5 mg PO DAILY 09/09/17 Losartan Potassium 25 mg PO DAILY 09/09/17 Magnesium Oxide 500 mg PO DAILY 09/09/17 Primary Care Physician: Andrew Gomez III, MD [Primary Care Provider] - Please follow up with your Primary Care Physician in: as directed Please Follow Up With: Jose Robles MD When: as directed Proposed Discharge Date: 09/10/17
--- NOTE | 2017-09-10 20:11 | EKG12_ITS ---
Test Reason : RHYTHM Blood Pressure : / mmHG Vent. Rate : 069 BPM Atrial Rate : 069 BPM P-R Int : 200 ms QRS Dur : 094 ms QT Int : 388 ms P-R-T Axes : 055 037 036 degrees QTc Int : 415 ms Normal sinus rhythm Normal ECG Confirmed by PRATIMA JENSEN MD ([id number]), magazine editor CHRISTINE MILLER ([id number]) on 09/13/2017 10:15:23 AM Referred By: TAMAR Confirmed By:PRATIMA JENSEN MD
[2017-09-10] MEDS: Atorvastatin Calcium 80 MG Tablet PO (22:38)
[2017-09-10] MEDS: Insulin Lispro 100 UNIT/ML INSULN.PEN SQ (22:39)
[2017-09-10] MEDS: Acetaminophen 325 MG Tablet 650 MG PO (22:40)
[2017-09-10] MEDS: Bisacodyl 5 MG Tablet PO (22:40)
[2017-09-11] VITALS (12 sets, daily range): BP systolic 114–158; BP diastolic 55–86; PULSE 61–81; RESP 14–18; TEMP 36.3–37.2; O2SAT 92–96
[2017-09-11 00:11] LABS: Bedside Glucose 176 mg/dL (70-110)
[2017-09-11 06:03] LABS: Partial Thromboplast Time 28.4 Seconds (24.1-36.2)
[2017-09-11 06:14] LABS: Hematocrit 41.3 % (40-54); Hemoglobin 13.9 g/dl (13.0-16.5)
[2017-09-11 06:16] LABS: Anion Gap 7 (5-15); BUN 12 mg/dL (7-18); BUN/Creat Ratio 10.1 RATIO (10-20); Calcium,Total 8.7 mg/dL (8.5-10.1); Chloride 105 mmol/L (98-107); Creatinine, Serum 1.19 mg/dL (0.70-1.30); EST Glomerular Filtration Rate 66 mL/min (>60); Est Glom Filt Rate - Afr Amer 79 mL/min (>60); Estimated Creatinine Clearance 62.27 ml/min; Glucose 112 mg/dL (74-106); Potassium 3.8 mmol/L (3.5-5.1); Sodium Level 139 mmol/L (136-145)
[2017-09-11 06:55] LABS: Bedside Glucose 127 mg/dL (70-110)
[2017-09-11] MEDS: Losartan Potassium 25 MG Tablet PO (10:16)
[2017-09-11] MEDS: Aspirin 81 MG TAB.CHEW PO (10:16)
[2017-09-11] MEDS: Magnesium Oxide 400 MG Tablet PO ×2 (10:16→17:13)
[2017-09-11] MEDS: Carvedilol 3.125 MG TABLET PO ×2 (10:16→22:12)
[2017-09-11] MEDS: Isosorbide Mononitrate 60 MG Tablet PO (10:17)
[2017-09-11] MEDS: HYDROCHLOROTHIAZIDE 12.5 MG CAPSULE PO (10:17)
[2017-09-11] MEDS: Gemfibrozil 600 MG Tablet 300 MG PO ×2 (10:18→22:14)
[2017-09-11 10:56] LABS: Bedside Glucose 151 mg/dL (70-110)
--- NOTE | 2017-09-11 14:36 | PN_ITS ---
Patient Problems: Active and Suspected Problems Bradycardia (Acute) A-fib (Acute) S/P PTCA (percutaneous transluminal coronary angioplasty) (Acute) Subjective: Pt resting comfortably. No CP/SOB. Waiting for transfer to [facility] main. Ambulating without difficulty. - Physical Exam General: Alert, Oriented x3, Cooperative HEENT: Atraumatic, PERRLA, EOMI, Normocephalic Neck: Supple, No JVD, Negative Carotid Bruits Lungs: Clear to auscultation, Normal air movement Cardiovascular: Regular rate, No murmurs Abdomen: Bowel Sounds Present, Soft, Non Tender Extremities: No edema, Capillary Refill Less than 3 Seconds, Diminished Peripheral Pulses - 1+ BL Skin: No rashes, No breakdown Musculoskeletal: No Tenderness to Palpation of Joints or Extremities Neurological: Cranial nerves II-XII grossly intact Psych/Mental Status: Normal Affect, Appropriate Vital Signs Temp Pulse Resp BP Pulse Ox 97.4 F L 71 16 136/81 H 96 09/11/17 10:00 09/11/17 14:00 09/11/17 10:00 09/11/17 10:00 09/11/17 10:00 Oxygen Flow Rate (L/min) 2 Oxygen Delivery Method Room Air Weight: 108.2 kg Body Mass Index (BMI) 36.1 Intake and Output for Last 24 Hours 09/09/17 09/10/17 09/11/17 23:59 23:59 23:59 Intake Total 1186.9 / 1186.9 3195 / 3195 300 / 300 Output Total 1000 / 1000 Balance 1186.9 / 1186.9 2195 / 2195 300 / 300 Laboratory Tests Past 24 Hrs 09/11/17 09/11/17 09/11/17 05:15 05:15 05:15 Hgb 13.9 Hct 41.3 APTT 28.4 Sodium 139 Potassium 3.8 Chloride 105 Carbon Dioxide 27.0 Anion Gap 7 BUN 12 Creatinine 1.19 Estim Creat Clear Calc 62.27 Est GFR (MDRD) Af Amer 79 Est GFR (MDRD) Non-Af 66 BUN/Creatinine Ratio 10.1 Glucose 112 H Calcium 8.7 POC Glucose 09/11/17 09/11/17 09/10/17 10:40 06:48 22:37 POC Glucose 151 H 127 H 176 H 09/10/17 16:46 POC Glucose 140 H Medical Necessity - Tobacco Use Smoking Status: Never smoker Tobacco Use: Non-smoker Assessment/Plan All Active Problems Bradycardia (Acute) A-fib (Acute) S/P PTCA (percutaneous transluminal coronary angioplasty) (Acute) Acute renal failure (Acute) 1. Chest heaviness with abnormal stress test and underlying CAD - Cath today - multivessel CAD with high grade stenosis of the LAD/circ and stenosis distal to the patent prior stents per discussion with Dr. Coker. Tx to [facility] initiated. Contine asa, ARB, statin, low dose coreg. -Tx to [facility] when bed available. 2. Paroxysmal AFib with bradycardia - converted with held coreg. Stable with low dose. 3. T2DM - lantus, ssi, trulicity held. 4. PAD - hx leg stents. + claudication at home. Follows [facility]. 5. HTN - stable. DVT ppx: SCDs DC planning: Tx to [facility] when bed available. Accepted by Dr. Rebolledo. Pt was seen by Mika Howell PA-C under the supervision of Dr. Dukes.
[2017-09-11] MEDS: Insulin Lispro 100 UNIT/ML INSULN.PEN SQ ×2 (17:12→22:12)
[2017-09-11 17:20] LABS: Bedside Glucose 174 mg/dL (70-110)
--- NOTE | 2017-09-11 20:01 | PCM.PN.CARD ---
Subjectve: The patient is awake and alert. He states overall he is felt better since being back in sinus rhythm. There has been no obvious ongoing chest discomfort or difficulty breathing at this time. There is been no near syncope or syncope. He has been up and ambulating. Objective: Vital Signs Temp Pulse Resp BP Pulse Ox 97.3 F L 78 16 117/77 93 09/11/17 18:00 09/11/17 18:00 09/11/17 18:00 09/11/17 18:00 09/11/17 18:00 Oxygen Flow Rate (L/min) 2 Oxygen Delivery Method Room Air Weight: 238 lb 8.642 oz Body Mass Index (BMI) 36.1 Intake and Output for Last 24 Hours 09/09/17 09/10/17 09/11/17 23:59 23:59 23:59 Intake Total 1186.9 / 1186.9 3195 / 3195 600 / 600 Output Total 1000 / 1000 Balance 1186.9 / 1186.9 2195 / 2195 600 / 600 General: Awake, Alert, Oriented x 3, Cooperative, No Acute Distress Neck: No JVD Lungs: Clear to auscultation Cardiovascular: Regular Rhythm, Premature Ectopic Beats, Normal S1, Normal S2 Vascular: Normal Femoral Pulses Abdomen: Bowel Sounds Present, Soft, Non Tender Extremities: No edema 09/11/17 05:15: APTT 28.4 09/11/17 05:15: Hgb 13.9, Hct 41.3 09/11/17 05:15: Sodium 139, Potassium 3.8, Chloride 105, Carbon Dioxide 27.0, Anion Gap 7, BUN 12, Creatinine 1.19, Est GFR (MDRD) Af Amer 79, Est GFR (MDRD) Non-Af 66, BUN/Creatinine Ratio 10.1, Glucose 112 H, Calcium 8.7 Rhythm: Sinus rhythm; PACs; intermittent episodes of PAF Medical Necessity - Tobacco Use Smoking Status: Never smoker Tobacco Use: Non-smoker Assessment/Plan 1. Atrial fibrillation with slow ventricular response The patient has atrial fibrillation with slow ventricular response which based upon symptoms and his past documentation appears to be paroxysmal. This may be related to a combination of the patient's age, hypertension, cardiovascular condition, etc. His slow ventricular response may be related to his beta-nico therapy, however, underlying conduction system related disease cannot necessarily be excluded. He has now been placed back on low-dose beta-nico therapy. He has not been restarted on anticoagulant therapy at this time. This will be reinitiated for him. 2. CAD status post PCI-remote The patient states he is undergone evaluation and care at the [facility] with 2 separate diagnostic cardiac catheterization procedures requiring 2 separate PCI procedures. He has been on medical management. He has undergone evaluation with diagnostic cardiac catheterization. He has been noted to have angiographically significant multivessel disease. He is pending transfer to the [facility] for further evaluation care or consideration for CABG. 3. Peripheral vascular disease The patient has undergone peripheral vascular evaluation and PCI of the left lower extremity under the direction of Dr. Jakob Gomez. He states this peripheral vascular disease diagnosis does limit him with respect to his ambulatory abilities especially exercise abilities, etc. 4. Hyperlipidemia He will continue risk factor modification and care as deemed appropriate. 5. Hypertension His blood pressures will be monitored. He will continue medical management and follow-up. 6. Diabetes He will continue evaluation care per internal medicine. 7. Acute renal insufficiency His creatinine level appears to be stable at this time. He will be followed as needed. 8. Raynaud's phenomena He does state he has underlying Raynaud's phenomena. He is on amlodipine therapy at this time which may benefit him with respect to his Raynaud's phenomena as well as his other medical conditions. Comment: The above was discussed with the patient, his , and his sister. His case is also been discussed with the [facility] staff. This note was generated with [employer] software. It may contain incorrect words, spelling, and punctuation that were not noted in checking the note before signing.
--- NOTE | 2017-09-11 20:05 | PN.CARD_ITS ---
Subjectve: The patient is awake and alert. He states overall he is felt better since being back in sinus rhythm. There has been no obvious ongoing chest discomfort or difficulty breathing at this time. There is been no near syncope or syncope. He has been up and ambulating. Objective: Vital Signs Temp Pulse Resp BP Pulse Ox 97.3 F L 78 16 117/77 93 09/11/17 18:00 09/11/17 18:00 09/11/17 18:00 09/11/17 18:00 09/11/17 18:00 Oxygen Flow Rate (L/min) 2 Oxygen Delivery Method Room Air Weight: 238 lb 8.642 oz Body Mass Index (BMI) 36.1 Intake and Output for Last 24 Hours 09/09/17 09/10/17 09/11/17 23:59 23:59 23:59 Intake Total 1186.9 / 1186.9 3195 / 3195 600 / 600 Output Total 1000 / 1000 Balance 1186.9 / 1186.9 2195 / 2195 600 / 600 General: Awake, Alert, Oriented x 3, Cooperative, No Acute Distress Neck: No JVD Lungs: Clear to auscultation Cardiovascular: Regular Rhythm, Premature Ectopic Beats, Normal S1, Normal S2 Vascular: Normal Femoral Pulses Abdomen: Bowel Sounds Present, Soft, Non Tender Extremities: No edema 09/11/17 05:15: APTT 28.4 09/11/17 05:15: Hgb 13.9, Hct 41.3 09/11/17 05:15: Sodium 139, Potassium 3.8, Chloride 105, Carbon Dioxide 27.0, Anion Gap 7, BUN 12, Creatinine 1.19, Est GFR (MDRD) Af Amer 79, Est GFR (MDRD) Non-Af 66, BUN/Creatinine Ratio 10.1, Glucose 112 H, Calcium 8.7 Rhythm: Sinus rhythm; PACs; intermittent episodes of PAF Medical Necessity - Tobacco Use Smoking Status: Never smoker Tobacco Use: Non-smoker Assessment/Plan 1. Atrial fibrillation with slow ventricular response The patient has atrial fibrillation with slow ventricular response which based upon symptoms and his past documentation appears to be paroxysmal. This may be related to a combination of the patient's age, hypertension, cardiovascular condition, etc. His slow ventricular response may be related to his beta-nico therapy, however, underlying conduction system related disease cannot necessarily be excluded. He has now been placed back on low-dose beta-nico therapy. He has not been restarted on anticoagulant therapy at this time. This will be reinitiated for him. 2. CAD status post PCI-remote The patient states he is undergone evaluation and care at the [facility] with 2 separate diagnostic cardiac catheterization procedures requiring 2 separate PCI procedures. He has been on medical management. He has undergone evaluation with diagnostic cardiac catheterization. He has been noted to have angiographically significant multivessel disease. He is pending transfer to the [facility] for further evaluation care or consideration for CABG. 3. Peripheral vascular disease The patient has undergone peripheral vascular evaluation and PCI of the left lower extremity under the direction of Dr. Jakob Gomez. He states this peripheral vascular disease diagnosis does limit him with respect to his ambulatory abilities especially exercise abilities, etc. 4. Hyperlipidemia He will continue risk factor modification and care as deemed appropriate. 5. Hypertension His blood pressures will be monitored. He will continue medical management and follow-up. 6. Diabetes He will continue evaluation care per internal medicine. 7. Acute renal insufficiency His creatinine level appears to be stable at this time. He will be followed as needed. 8. Raynaud's phenomena He does state he has underlying Raynaud's phenomena. He is on amlodipine therapy at this time which may benefit him with respect to his Raynaud's phenomena as well as his other medical conditions. Comment: The above was discussed with the patient, his , and his sister. His case is also been discussed with the [facility] staff. This note was generated with [employer] software. It may contain incorrect words, spelling, and punctuation that were not noted in checking the note before signing.
[2017-09-11] MEDS: Atorvastatin Calcium 80 MG Tablet PO (22:14)
[2017-09-11 23:31] LABS: Bedside Glucose 200 mg/dL (70-110)
[2017-09-12] VITALS (11 sets, daily range): BP systolic 122–137; BP diastolic 72–78; PULSE 65–89; RESP 16–18; TEMP 36.6–37.5; O2SAT 96–99
[2017-09-12] MEDS: LORazepam 0.5 MG Tablet PO ×2 (01:34→20:55)
[2017-09-12] MEDS: Enoxaparin 120 MG/0.8 ML Syringe 110 MG SC ×2 (05:34→17:06)
[2017-09-12 05:49] LABS: Partial Thromboplast Time 28.6 Seconds (24.1-36.2)
[2017-09-12 06:56] LABS: Bedside Glucose 161 mg/dL (70-110)
[2017-09-12 07:19] LABS: Magnesium 2.3 mg/dL (1.6-2.6)
[2017-09-12] MEDS: Gemfibrozil 600 MG Tablet 300 MG PO ×2 (09:36→20:55)
[2017-09-12] MEDS: HYDROCHLOROTHIAZIDE 12.5 MG CAPSULE PO (09:37)
[2017-09-12] MEDS: Isosorbide Mononitrate 60 MG Tablet PO (09:37)
[2017-09-12] MEDS: Aspirin 81 MG TAB.CHEW PO (09:37)
[2017-09-12] MEDS: Magnesium Oxide 400 MG Tablet PO ×2 (09:37→17:04)
[2017-09-12] MEDS: Losartan Potassium 25 MG Tablet PO (09:37)
[2017-09-12] MEDS: Insulin Lispro 100 UNIT/ML INSULN.PEN SQ ×4 (09:37→20:56)
[2017-09-12] MEDS: Carvedilol 3.125 MG TABLET PO ×2 (09:37→20:55)
[2017-09-12 11:35] LABS: Bedside Glucose 158 mg/dL (70-110)
--- NOTE | 2017-09-12 14:01 | PCM.PROGNOTE ---
Patient Problems: Active and Suspected Problems Bradycardia (Acute) A-fib (Acute) S/P PTCA (percutaneous transluminal coronary angioplasty) (Acute) Subjective: Patient is resting comfortably in bed. No CP, heaviness, palp, dizziness, LH. No events on tele - SR 1st degree av block. No fever or chills. Ambulatory with no issues. Pt waiting for dc. - Physical Exam General: Alert, Oriented x3, Cooperative HEENT: Atraumatic, PERRLA, EOMI, Normocephalic Neck: Supple, No JVD, Negative Carotid Bruits Lungs: Clear to auscultation, Normal air movement Cardiovascular: Regular rate, No murmurs Abdomen: Bowel Sounds Present, Soft, Non Tender Extremities: No edema, Capillary Refill Less than 3 Seconds Skin: No rashes, No breakdown Musculoskeletal: No Tenderness to Palpation of Joints or Extremities Neurological: Cranial nerves II-XII grossly intact Psych/Mental Status: Normal Affect, Appropriate, Alert and oriented to time, place, person, mood and affect Vital Signs Temp Pulse Resp BP Pulse Ox 98.2 F 80 16 122/77 H 97 09/12/17 09:36 09/12/17 11:14 09/12/17 09:36 09/12/17 09:36 09/12/17 09:36 Oxygen Flow Rate (L/min) 2 Oxygen Delivery Method Room Air Weight: 106.186 kg Body Mass Index (BMI) 36.1 Intake and Output for Last 24 Hours 09/10/17 09/11/17 09/12/17 23:59 23:59 23:59 Intake Total 3195 / 3195 600 / 600 120 / 120 Output Total 1000 / 1000 Balance 2195 / 2195 600 / 600 120 / 120 Laboratory Tests Past 24 Hrs 09/12/17 09/12/17 05:15 05:25 APTT 28.6 Magnesium 2.3 POC Glucose 09/12/17 09/12/17 09/11/17 11:25 06:49 22:10 POC Glucose 158 H 161 H 200 H 09/11/17 17:06 POC Glucose 174 H Medical Necessity - Tobacco Use Smoking Status: Never smoker Tobacco Use: Non-smoker Assessment/Plan All Active Problems Bradycardia (Acute) A-fib (Acute) S/P PTCA (percutaneous transluminal coronary angioplasty) (Acute) Acute renal failure (Acute) 1. Chest heaviness with abnormal stress test and underlying CAD - Still asymptomatic. multivessel CAD with high grade stenosis of the LAD/circ and stenosis distal to the patent prior stents per discussion with Dr. Coker. Tx to [facility] initiated. Contine asa, ARB, statin, low dose coreg. -Tx to [facility] when bed available. -tele SR with 1st degree av. -no overnight issues 2. Paroxysmal AFib with bradycardia - converted with held coreg. Stable with low dose. 3. T2DM - lantus, ssi, trulicity held. 4. PAD - hx leg stents. + claudication at home. Follows [facility]. 5. HTN - stable. DVT ppx: SCDs DC planning: Tx to [facility] when bed available. Accepted by Dr. Rebolledo. Pt was seen by Mika Howell PA-C under the supervision of Dr. Dukes.
[2017-09-12 16:50] LABS: Bedside Glucose 156 mg/dL (70-110)
--- NOTE | 2017-09-12 18:24 | PN.CARD_ITS ---
Subjectve: The patient has been up and ambulating. He has been doing well. He has no acute complaints at this time. Objective: Vital Signs Temp Pulse Resp BP Pulse Ox 98.5 F 66 16 122/72 H 99 09/12/17 15:35 09/12/17 15:35 09/12/17 15:35 09/12/17 15:35 09/12/17 15:35 Oxygen Flow Rate (L/min) 2 Oxygen Delivery Method Room Air Weight: 234 lb 1.6 oz Body Mass Index (BMI) 36.1 Intake and Output for Last 24 Hours 09/10/17 09/11/17 09/12/17 23:59 23:59 23:59 Intake Total 3195 / 3195 600 / 600 600 / 600 Output Total 1000 / 1000 Balance 2195 / 2195 600 / 600 600 / 600 General: Awake, Alert, Oriented x 3, Cooperative, No Acute Distress HEENT: Atraumatic, Normocephalic, PERRL, EOMI, Sclera Non Icteric Oral: Moist Mucosa Neck: Supple, Good ROM, No JVD Lungs: Clear to auscultation Cardiovascular: Regular Rhythm, Premature Ectopic Beats, Normal S1, Normal S2 Abdomen: Bowel Sounds Present, Soft, Non Tender Extremities: No Cyanosis, No Clubbing, No edema Neurological: No Focal Motor or Sensory Deficit 09/12/17 05:15: Magnesium 2.3 09/12/17 05:25: APTT 28.6 Rhythm: Sinus rhythm; PACs Medical Necessity - Tobacco Use Smoking Status: Never smoker Tobacco Use: Non-smoker Assessment/Plan 1. Atrial fibrillation with slow ventricular response The patient has atrial fibrillation with slow ventricular response which based upon symptoms and his past documentation appears to be paroxysmal. This may be related to a combination of the patient's age, hypertension, cardiovascular condition, etc. His slow ventricular response may be related to his beta-nico therapy, however, underlying conduction system related disease cannot necessarily be excluded. He has now been placed back on low-dose beta-nico therapy. He has not been restarted on anticoagulant therapy at this time. This will be reinitiated for him in the way of Lovenox therapy. Not being placed back on oral systemic anticoagulant therapy as he is pending transfer to [facility] for CABG. 2. CAD status post PCI-remote The patient states he is undergone evaluation and care at the [facility] with 2 separate diagnostic cardiac catheterization procedures requiring 2 separate PCI procedures. He has been on medical management. He has undergone evaluation with diagnostic cardiac catheterization. He has been noted to have angiographically significant multivessel disease. He is pending transfer to the [facility] for further evaluation care or consideration for CABG. 3. Peripheral vascular disease The patient has undergone peripheral vascular evaluation and PCI of the left lower extremity under the direction of Dr. Jakob Gomez. He states this peripheral vascular disease diagnosis does limit him with respect to his ambulatory abilities especially exercise abilities, etc. 4. Hyperlipidemia He will continue risk factor modification and care as deemed appropriate. 5. Hypertension His blood pressures will be monitored. He will continue medical management and follow-up. 6. Diabetes He will continue evaluation care per internal medicine. 7. Acute renal insufficiency His creatinine level appears to be stable at this time. He will be followed as needed. 8. Raynaud's phenomena He does state he has underlying Raynaud's phenomena. He is on amlodipine therapy at this time which may benefit him with respect to his Raynaud's phenomena as well as his other medical conditions. Overall, the present time, the patient will continue to be monitored based upon his significant underlying cardiovascular condition. He is continuing medical management. His antiplatelet therapy and anticoagulant therapy are on hold, with respect to oral agents, based upon his pending transfer to [facility] for CABG. Comment: The above was discussed with the patient family members present. This note was generated with [employer] software. It may contain incorrect words, spelling, and punctuation that were not noted in checking the note before signing.
[2017-09-12] MEDS: HYDROcodone Bitartrate/Apap 5/325 Tablet PO (20:54)
[2017-09-12] MEDS: Atorvastatin Calcium 80 MG Tablet PO (20:55)
[2017-09-12 21:06] LABS: Bedside Glucose 202 mg/dL (70-110)
--- NOTE | 2017-09-12 21:45 | NURSING ---
Report called to Kacie flowers at [facility] at this time.
== END 2017-09-12 23:00 | disposition short-term general hospital (02) | DRG 287 ==
LOC: ED 16:51 → PCU 18:35
PROVIDERS: Internal Medicine Cardiovascular Disease; Physician Assistant; Admitting Provider Internal Medicine; Emergency Provider Emergency Medicine; Family Provider Family Medicine; PCP Family Medicine; Visit Provider Internal Medicine
DX: I48.91 Unspecified atrial fibrillation (principal); I10 Essential (primary) hypertension; I25.10 Atherosclerotic heart disease of native coronary artery without angina pectoris; Z79.4 Long term (current) use of insulin; R00.1 Bradycardia, unspecified; E78.5 Hyperlipidemia, unspecified; Z95.5 Presence of coronary angioplasty implant and graft; Z79.899 Other long term (current) drug therapy; I73.00 Raynaud's syndrome without gangrene; I73.9 Peripheral vascular disease, unspecified
CPT/HCPCS: 36415; 71045; 78452; 80048; 82962; 83735; 84439; 84443; 84484; 85014; 85018; 85025; 85027; 85610; 85730; 93005; 93017; 93306; 93458; 97802; 99152; 99153; 99283; A9500; J7030; J7040; Q9957; Q9967; A4216; C1769; C1894; J2785

== ENCOUNTER 2017-09-30 21:13 | Emergency (ER) | payer OTHER, SELFPAY ==
[2017-09-30 21:14] VITALS: BP 96/54; PULSE 87; RESP 17; TEMP 36.5; O2SAT 93; BMI 33.8
[2017-09-30 22:34] VITALS: BP 102/62; PULSE 76; RESP 15; O2SAT 95
--- NOTE | 2017-09-30 23:04 | ED.DCSUM_ITS ---
- ER Visit Summary Date of Service: 09/30/17 Chief Complaint: Left lower extremity redness History of Present Illness: The patient is a 61 M presenting with left lower extremity redness. Patient noticed this today. He had a recent history of CABG at [facility]. He had the surgery on September 21. He was discharged on September 27. He denies any chest pain or shortness of breath, other than with coughing. He was concerned tonight due to redness to the anterior lower left lower extremity. He complains of mild swelling in the left leg. He is on Coumadin, he states his last INR was 2.2. He denies blood in his stool. Denies other complaints. Physical Examination: Vitals are stable. Patient is afebrile. Alert no acute distress. HEENT exam is unremarkable. Lungs are clear and equal bilaterally. Incision clean dry and intact Heart is regular rate and rhythm. Abdomen is soft nontender nondistended. Extremities incision clean dry intact, erythema to the anterior left lower extremity which is not circumferential, mild symmetric edema Skin is warm and dry. No focal neurologic deficit. Remainder of exam is unremarkable. Emergency Department Course and Treatment: CBC shows normal white count, hemoglobin 11.4. Chemistries show sodium 135, glucose 150, BUN 21, creatinine 1.55. INR 2.0. Unable to obtain an ultrasound at this time of day. D-dimer was drawn which was 3.61. Due to elevated d-dimer, CTA chest was obtained which shows no acute process. Patient was given IV fluids. He was given clindamycin for cellulitis. He is given an order form for an ultrasound of his lower extremity to be performed tomorrow. He is advised to return to ED if any worsening complaints. Disposition: Discharge home Impression: Left lower extremity cellulitis This note was generated with [employer] dictation software. It may contain incorrect words, spelling, and punctuation that were not noted in review of the chart prior to signing ED Disposition - Plan for ED Patient: Chief Complaint: Cellulitis Instructions: Discharge Instructions for Cellulitis Prescriptions: Clindamycin [Cleocin] 300 mg PO 4X/DAY #80 capsule Referrals: Andrew Gomez III, MD [Primary Care Provider] -
[2017-09-30 23:27] LABS: Absolute Lymphocyte Count 2.63 X10^3/ul (0.83-4.51); Absolute Neutrophil Count 6.7 X10^3/uL (2.0-7.7); Basophil# 0.04 X10^3/uL; Basophil% 0.4 % (0-1); Eosinophil# 0.82 X10^3/uL; Eosinophils% 7.4 % (0-5); Hematocrit 35.7 % (40-54); Hemoglobin 11.4 g/dl (13.0-16.5); Lymphocyte # 2.63 X10^3/ul (4.0); Lymphocyte % 23.9 % (19-41); Mean Corp Hgb Conc 31.9 g/gl (32-36); Mean Corpuscular Hgb 28.9 pg (27.0-32.0); Mean Corpuscular Volume 90.6 fL (80-94); Mean Platelet Vol. 9.3 fl (6.2-12.0); Monocyte# 0.75 X10^3/uL; Monocyte% 6.8 % (0-10); Neutrophil # 6.69 X10^3/uL (2.7-7.7); Neutrophil % 60.7 % (47-70); POSITIVE COUNT NO; POSITIVE DIFFERENTIAL NO; POSITIVE MORPHOLOGY NO; Platelet Count 347 K/mm3 (150-450); RBC Distribution Width SD 46.1 fl (35.1-43.9); Red Blood Count 3.94 M/mm3 (4.6-6.2)
[2017-09-30 23:38] LABS: Prothrombin Time (Protime)PT. 22.3 SECONDS (11.7-14.9)
[2017-09-30 23:41] LABS: Anion Gap 6 (5-15); BUN 21 mg/dL (7-18); BUN/Creat Ratio 13.5 RATIO (10-20); Calcium,Total 9.3 mg/dL (8.5-10.1); Chloride 97 mmol/L (98-107); Creatinine, Serum 1.55 mg/dL (0.70-1.30); EST Glomerular Filtration Rate 48 mL/min (>60); Est Glom Filt Rate - Afr Amer 59 mL/min (>60); Estimated Creatinine Clearance 47.81 ml/min; Glucose 150 mg/dL (74-106); Potassium 4.9 mmol/L (3.5-5.1); Sodium Level 135 mmol/L (136-145)
[2017-09-30 23:52] LABS: D-Dimer Quantitative (DVT/PE) 3.61 FEU/ug/m (0.27-0.49)
--- NOTE | 2017-09-30 23:53 | ED.RN ---
dr portillo aware of p2lodwu 3.61.
--- NOTE | 2017-09-30 23:56 | CT_ITS ---
STUDY: CTA CHEST REASON FOR EXAM: Male, 61 years old. Elevated d-dimer RADIATION DOSAGE (If Supplied By Facility): CTDIvol = ( 33.20 ) mGy, DLP = ( 775.38 ) mGycm TECHNIQUE: The examination was performed with the intravenous administration of 100 ml of Isovue 300 contrast material. Post-processing of the angiographic images was performed, with multiplanar reformation and 3D reconstruction. Individualized dose optimization techniques were used for this CT. COMPARISON: None. FINDINGS: Normal enhancement of the main pulmonary artery and right and left pulmonary arteries. Normal enhancement of the bilateral peripheral pulmonary arteries. There is no demonstrated pulmonary embolism. Normal thoracic aorta and visualized great vessels. There is no demonstrated aortic dissection. Sternal cerclage wires and vascular clips are present from a prior sternotomy and coronary artery bypass graft procedure (CABG). Normal mediastinum. Normal hilar regions. Normal visualized trachea and bronchi. Subsegmental atelectases are noted in the right and left lung bases. Normal pulmonary parenchyma. Small left pleural effusion. Normal chest wall structures. Normal osseous structures. Normal visualized upper abdomen. CT/CTA Chest W/WO Contrast IMPRESSION: Normal CTA chest examination, without a demonstrated pulmonary embolism or arterial dissection. Electronically Signed: Trey Forbes MD at 3:06 EDT Tel , Service support ,
--- NOTE | 2017-10-01 00:14 | EKG12_ITS ---
Test Reason : CP Blood Pressure : / mmHG Vent. Rate : 080 BPM Atrial Rate : 080 BPM P-R Int : 136 ms QRS Dur : 090 ms QT Int : 372 ms P-R-T Axes : 020 029 027 degrees QTc Int : 429 ms Normal sinus rhythm Nonspecific ST and T wave abnormality Abnormal ECG Confirmed by RICHARD JAEGER, BASIM ([id number]), technical editor CHRISTINE MILLER ([id number]) on 10/04/2017 1:13:39 PM Referred By: MAE/DEVAN Confirmed By:BASIM RAMOS MD
[2017-10-01 00:18] VITALS: BP 112/71; PULSE 78; RESP 17; O2SAT 93
[2017-10-01 02:08] VITALS: BP 104/59; PULSE 75; RESP 19
--- NOTE | 2017-10-01 03:32 | ED.DEP ---
ED Disposition - Plan for ED Patient: Chief Complaint: Cellulitis Instructions: Discharge Instructions for Cellulitis Prescriptions: Clindamycin [Cleocin] 300 mg PO 4X/DAY #80 capsule Referrals: Andrew Gomez III, MD [Primary Care Provider] -
[2017-10-01] MEDS: Clindamycin HCl 150 MG Capsule 450 MG PO (03:47)
[2017-10-01 03:51] VITALS: BP 105/55; PULSE 78; RESP 14; O2SAT 97
[2017-10-01 03:52] VITALS: BP 105/55; PULSE 78; RESP 17; O2SAT 98
--- NOTE | 2017-10-01 03:53 | ED.RN ---
pt given written and verbal discharge instructions and home going prescriptions. pt verbalizes understanding and denies any further questions. pt to have venous doppler tomorrow. iv d/c and covered with 2x2 gauze dressing and paper tape. pt ambulates out of dept with .
== END 2017-10-01 03:54 | disposition home or self-care (01) ==
PROVIDERS: Emergency Provider Emergency Medicine; Family Provider Family Medicine; PCP Family Medicine
DX: L03.116 Cellulitis of left lower limb (principal); R74.8 Abnormal levels of other serum enzymes; I48.91 Unspecified atrial fibrillation; I25.10 Atherosclerotic heart disease of native coronary artery without angina pectoris; Z79.01 Long term (current) use of anticoagulants; Z79.02 Long term (current) use of antithrombotics/antiplatelets; Z79.4 Long term (current) use of insulin; Z79.899 Other long term (current) drug therapy; Z95.1 Presence of aortocoronary bypass graft
CPT/HCPCS: 71275; 80048; 85025; 85379; 85610; 93005; 99284; J7040; Q9967; A4216

== ENCOUNTER → 2017-10-01 13:58 | Outpatient (CLI) | payer OTHER, SELFPAY ==
--- NOTE | 2017-10-01 13:59 | VDLE_ITS ---
Reason For Study: SWELLING Procedure LEFT Exam performed in department. GSV is normal. CFV is compressible, spontaneous, phasic, competent, and demonstrates normal augmentation. FV is compressible, spontaneous, phasic, competent and demonstrates normal augmentation. POP V is compressible, spontaneous, phasic, competent and demonstrates normal augmentation. T/P Trunk is compressible. PTV is compressible. LT PerV is compressible. Interpretation Summary Deep veins of the left lower extremity are patent and compressible segmentally. There is no evidence of left lower extremity deep vein thrombosis. Valvular competence appears intact within the proximal deep venous system on the left . The left greater saphenous vein appears patent and compressible segmentally. Ordering Physician: Emilee Noe Referring Physician: MIAN WILBURN Performed By: Shruthi Quick, RDCS, RVT
== END ==
PROVIDERS: Family Provider Family Medicine; PCP Family Medicine; Visit Provider Emergency Medicine
DX: M79.89 Other specified soft tissue disorders (principal)
CPT/HCPCS: 93971

== ENCOUNTER → 2017-10-25 13:30 | Outpatient (CLI) | payer OTHER, SELFPAY ==
--- NOTE | 2017-10-25 13:32 | ADUL_ITS ---
Cardiovascular Services Abdominal Vascular Ultrasound [address], [place] [address] [place] Ordering Physician: Tex Coker Name: NOMAN STONE JStudy Date: 01:38 PM Patient Location: [facility] : 1955 Gender: Male Age: 62 yrs Ethnicity: C Reason For Study: R/O PSEUDO HEADER_END Right Renal Artery RT [employer]- .9 X .9 CM with a velocity of 89.6 cm/s RT CFV demonstrates normal phasic doppler signal. Interpretation Summary The right common femoral artery is patent, demonstrating normal, pulsatile arterial flow. The right common femoral vein is patent, demonstrating normal, phasic venous flow. There is no evidence of pseudoaneurysm or arterio-venous fistula. Ordering Physician: Tex Coker Referring Physician: MIAN WILBURN Performed By: Shruthi Quick, WILIAM, RVT
--- NOTE | 2017-10-25 16:01 | RAD_ITS ---
STUDY: X-RAY - PELVIS AND RIGHT HIP REASON FOR EXAM: Male, 62 years old. Hip pain TECHNIQUE: Radiological exam, hip, unilateral, with pelvis when performed; 2 or 3 views. COMPARISON: None. FINDINGS: There is a non-specific bowel gas pattern. Normal visualized soft tissue structures. There are calcified phleboliths in the pelvis. This makes differentiation with distal ureteral stones difficult. Stool throughout the colon. Large amount of stool in the rectal vault can suggest constipation. There are atherosclerotic vascular calcifications. Normal bilateral iliac wings, sacroiliac joints and visualized sacrum. Normal bilateral superior and inferior pubic rami. Normal pubic symphysis. Normal bilateral ischial tuberosities. Normal visualized femoral head. Normal acetabulum. Normal hip joint. RAD/HIP, UNI W/ Pelvis 2-3 Views IMPRESSION: Normal x-ray examination of the pelvis and hip. Constipation Electronically Signed: Jay Gutierrez MD at 20:39 EDT , Service support ,
== END ==
PROVIDERS: Family Provider Family Medicine; PCP Family Medicine; Visit Provider Internal Medicine Cardiovascular Disease
DX: M25.551 Pain in right hip (principal); I10 Essential (primary) hypertension; I25.10 Atherosclerotic heart disease of native coronary artery without angina pectoris; E78.5 Hyperlipidemia, unspecified; I73.9 Peripheral vascular disease, unspecified; Z98.61 Coronary angioplasty status; Z95.1 Presence of aortocoronary bypass graft
CPT/HCPCS: 73502; 93926

== ENCOUNTER → 2017-11-01 11:38 | Outpatient (CLI) | payer OTHER, SELFPAY ==
--- NOTE | 2017-11-01 13:05 | STRESSREP ---
Stress Test Report Date: 12/13/2017 Procedure: Exercise tolerance test Indications: CAD; status post PCI; status post CABG; PAF; precardiac rehabilitation evaluation Consent: Per the patient Procedure: The patient exercised on a Byron protocol for 5 minutes completing Stage I and 2 minutes of Stage II achieving a peak heart rate of 120 bpm (76 % predicted maximal heart rate) with a peak blood pressure 144/80 mmHg and a peak MET capacity of approximately 7 MET's. The baseline ECG demonstrated normal sinus rhythm. The peak exercise ECG demonstrated no obvious ECG changes. There was an isolated PVC during exercise. The functional capacity was considered average. The patient had no complaint of chest discomfort during exercise or recovery. The examination was discontinued secondary to discomfort. Impression: 1. Technically inadequate (percent predicted maximal heart rate < than 85%) exercise tolerance test 2. Peak exercise ECG with ECG changes of the heart rate achieved 3. Was an isolated PVC during exercise This note was generated with [employer] software. It may contain incorrect words, spelling, and punctuation that were not noted in checking the note before signing.
== END ==
PROVIDERS: Family Provider Family Medicine; PCP Family Medicine; Visit Provider Internal Medicine Cardiovascular Disease
DX: I25.10 Atherosclerotic heart disease of native coronary artery without angina pectoris (principal); Z95.1 Presence of aortocoronary bypass graft
CPT/HCPCS: 93017

== ENCOUNTER → 2017-11-22 10:22 | Outpatient (CLI) | payer OTHER, SELFPAY ==
--- NOTE | 2017-11-22 10:41 | PCM.CR.HP2 ---
CR - History & Physical - General Arrival date:: 11/22/17 Arrival time:: 10:41 Date of Referral:: 10/31/17 Date of CR Evaluation:: 11/22/17 Referring Physician: DR. TEX RAMOS Primary Diagnosis: CABG @ [facility] - History of Present Cardiac Event Onset Date: Enter Onset Date of cardiac illnesses in Comment field below Current stable Angina Pectoris:: No Acute Myocardial Infarction within 12 months:: No Coronary Artery Bypass Graft:: Yes - 09/21/2017 Heart valve replacement or repair:: No PTCA or coronary stenting:: Yes - 2008 X 3; 1 STENT IN 2014 Heart or Heart-Lung Transplant:: No Heart Failure EF <35%:: No Were there any complications?: LEG SWELLING REDNESS GROIN PAIN - Medications Home Medications: Ambulatory Orders Medication Instructions Recorded Clopidogrel Bisulfate [Plavix] 75 mg PO DAILY 02/07/13 Nitroglycerin [Nitrostat] 0.4 mg SUBLINGUAL Q5M PRN 02/07/13 Cholecalciferol (Vitamin D3) 5,000 unit PO DAILY 01/16/14 [Vitamin D] Atorvastatin Calcium [Lipitor] 80 mg PO QHS 07/05/15 Carvedilol [Coreg (Beta Francisco)] 25 mg PO BID 07/05/15 Dulaglutide [Trulicity] 1.5 mg SQ QWEEK 09/09/17 Hydrochlorothiazide 12.5 mg PO DAILY 09/09/17 Magnesium Oxide 500 mg PO DAILY 09/09/17 Insulin Glargine,Hum.rec.anlog 30 unit SQ QHS 09/30/17 [Lantus] Warfarin [Coumadin (PBKC)] 2.5 mg PO DAILY 09/30/17 gemfibrozil 600 mg tablet 600 mg PO BID tab 10/31/17 hydrocodone 5 mg-acetaminophen 325 1 tab PO Q12H PRN tab 10/31/17 mg tablet lorazepam 0.5 mg tablet 0.5 mg PO BID PRN tab 10/31/17 - Allergies Allergies/Adverse Reactions: Allergies adhesive Allergy (Verified 09/30/17 21:13) Unknown lisinopril Allergy (Verified 09/30/17 21:13) Unknown Penicillins Allergy (Verified 09/30/17 21:13) Unknown - Sleep Disorder Evaluation Hx of Sleep Apnea: Yes Do you snore loudly (louder than talking or can be heard through closed doors)?: Yes - BiPAP at hs. Do you often feel tired/ fatigued/ sleepy during daytime?: No Has anyone observed you stop breathing during sleep?: No History of Hypertension (for STOP score): Yes STOP Results: Positive Advanced Directives - Advanced Directives Power of Resident Inspector: No Living Will: No Advance Directives Information Provided: No Advance Directives on File: No DNR Order?:: No - MOLST See MOLST form: No Past Medical History - Past Medical Illness Medical History: Past Medical History (Last Reviewed 10/31/17 @ 11:36 by Sana Owusu) Presence of stent in coronary artery (Chronic) Z95.5 PCI/stent to prox/distal RCA 2008; PCI/Stent to mid RCA and PCi of the PDA 04/20/15 Atherosclerotic heart disease of [place] coronary artery without angina pectoris (Chronic) I25.10 PCI/stent to prox/distal RCA 2008; PCI/Stent to mid RCA and PCi of the PDA 04/20/15; CABG x5- MANCERA to LAD, SVG to Ramus, SVG to PDA, SVG to PLV, SVG to OM, PV isolation, left atrial appendage excision 09/21/17 Paroxysmal atrial fibrillation (Acute) I48.0 Bradycardia (Acute) R00.1 Type 2 diabetes mellitus (Chronic) E11.9 Hypertension (Chronic) I10 PAD (peripheral artery disease) (Chronic) I73.9 PCI/Stent L fem artery 11/26/07; PCI Rt fem 02/17/08; PCI Left pop and sup femoral artery 03/09/10; PCI Rt pop and Rt SFA 05/11/10; PCI bilat LE arteriogram w/angioplasty 10/03/10; PCI/LLE 07/17/11 HLD (hyperlipidemia) (Chronic) E78.5 Acute renal failure (Acute) GERD (gastroesophageal reflux disease) K21.9 Raynauds disease I73.00 - Past Surgical History Surgical History: Past Surgical History (Last Reviewed 10/31/17 @ 11:36 by Sana Owusu) H/O coronary artery bypass surgery (Chronic) Onset Date: 09/21/17 Z95.1 CABG x5- MANCERA to LAD, SVG to Ramus, SVG to PDA, SVG to PLV, SVG to OM, PV isolation, left atrial appendage excision 09/21/17 History of angioplasty of peripheral vessel Z98.62 PCI/Stent L fem artery 11/26/07; PCI Rt fem 02/17/08; PCI Left pop and sup femoral artery 03/09/10; PCI Rt pop and Rt SFA 05/11/10; PCI bilat LE arteriogram w/angioplasty 10/03/10; PCI/LLE 07/17/11 Postsurgical percutaneous transluminal coronary angioplasty (PTCA) status Z98.61 PCI/stent to prox/distal RCA 2008; PCI/Stent to mid RCA and PCi of the PDA 04/20/15 History of inguinal hernia repair Z98.890, Z87.19 Surgical History: angioplasty, - - right inguinal hernia, s/p stenst - Family History Summary Family History: Family History (Last Reviewed 10/31/17 @ 11:36 by Sana Owusu) Father Heart disease Grandmother Hypertension Grandfather Heart disease Myocardial infarction Social History - Smoking History Smoking Status: Never smoker Hx Tobacco Use: No Hx Smoking Exposure: No - Alcohol Use Alcohol Usage: Yes - occasional - Substance Abuse Hx Substance Use: No - Occupation Occupation (List type of work in comments):: 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 Recreational Activities: I am able to engage in all my recreational activities Social Environment - Status Marital Status: - Current Living Arrangements Living Environment:: Spouse - Children How many children do you have?: 2 - 1@ home still Do any of your children live nearby?: Yes - Safety Do you feel safe in your surroundings?: Yes - Assistance Do you need any assistance at home?: none Review of Systems - Review of Systems Hints: Right click = Denies (Slash). Left click = Reports (Fontana) Review of Present Symptoms: Reports: Operative Discomfort - very little, weight limit 20#, still having some hip lower leg pain from positioning during surgery., Wound Healing, Heart Arrhythmia/Irregularities - h/o of paroxysmal atrial fibrillationa nd bradycardia, did a ablation procedure during bypass surgery haven't had issues since., Appetite - Normal. Denies: Shortness of Breath at Rest, Shortness of Breath with Exertion, Angina, Dizziness/Lightheadedness, Fatigue, Appetite - Special Diet, Sleep - Normal - minimum slepp little as four hours a night. Used to work nights so it has been regular pattern to not sleep regularly., Sexual Changes - Pain Is Patient Pain Free?: No Pain Location: pelvis - walk to long, standing to long and peripheral lower extremity stents., lower extremity Pain Level: 0/10 Risk Factor Assessment - Chief Complaint Chief Complaint: Patient is a 62 year old male patient of Dr. Tex Ramos who presents to cardiac rehab today following recent CABG on 09/21/2017 at the [facility]. The patient has a previous CAD history with previous coronary stents in adn lower extremity stents for PAD. - Vital Signs Temperature: 98.7 F Respiratory Rate: 16 Pulse Ox: 97 Nailbeds:: pink - Pulse Pulse Rate: 95 Pulse Rhythm: Regular - Hypertension How long have you been treated?: 20 On medication(s)?: yes Blood Pressure Sitting - Right Arm: 118/68 - Obesity Height: 5 ft 8 in Weight:: 217 lb Weight in Pounds: 217.0 lbs Weight Source: Standing Scale Body Mass Index (BMI): 33.0 Desired Body Weight: 171 Nutritional Referral for Obesity: Yes - Patient could benefit from structured weight program. - Physical Inactivity Physical Inactivity: Reg Exercise 30 min/day - PT therapy for hip - Risk Stratification Risk Guidelines: Lowest Risk: Risk Factor for Smoking, Risk Factor for Dyslipidemia, Risk Factor for Diabetes - non-insulin dependent DM, Risk Factor for Hypertension, Risk Factor for Sedentary Lifestyle, Risk Factor for Depression, Highest Risk: Risk Factor for Obesity - For Smoking Smoking Risk Guidelines: Smoking Low Risk: None or quit greater than 6 months ago. Smoking Moderate Risk: Smoker or quit 6 months or less ago. Smoking High Risk: Smoker - For Dyslipidemia Dyslipidemia Risk Guidelines: Low Risk: Moderate Risk: High Risk: 15-25% fat 25.1-29% fat >/= 30% fat. <7% sat fat 7-9% sat fat >9% sat fat. <150 mg chol 150-299 mg chol >/= 300 mg chol. LDL <100 LDL 100-129 LDL >/= 130. Chol/HDL ratio <5.0 Chol/HDL ratio 5.0-6.0 Chol/HDL ratio >6.0. Triglycerides <100 Triglycerides 100-149 Triglycerides >/= 150 - For Diabetes Mellitus Diabetes Risk Guidelines: Diabetes Low Risk: HgA1c <6.5% and/or FBG <120. Diabetes Moderate Risk: HgA1c 6.6-7.9% and/or FBG 120-180. Diabetes High Risk: HgA1c >/= 8% and/or FBG >180 - For Obesity/Overweight Obesity/Overweight Risk Guidelines: Obesity Low Risk: BMI <25.0. Obesity Moderate Risk: BMI 25-29.9. Obesity High Risk: BMI >/= 30.0 - For Hypertension Hypertension Risk Guidelines: Hypertension Low Risk: Systolic <120 and Diastolic <80. Hypertension Moderate Risk: Systolic 120-139 and Diastolic 80-89. Hypertension High Risk: Systolic >/= 140 and Diastolic >/= 90 - For Sedentary Lifestyle Sedentary Lifestyle Risk Guidelines: Sedentary Lifestyle Low Risk: >/= 1,500 kcal/week. Sedentary Lifestyle Moderate Risk: 700-1,499 kcal/week. Sedentary Lifestyle High Risk: < 700 kcal/week - For Depression Depression Risk Guidelines: Depression Low Risk: Not clinically depressed. Depression Moderate Risk: Mildly depressed. Depression High Risk: Clinically depressed - Family History Family History: Family History (Last Reviewed 10/31/17 @ 11:36 by Sana Owusu) Father Heart disease Grandmother Hypertension Grandfather Heart disease Myocardial infarction Motivation - Motivation to Participate On a scale of 1 to 10, how prepared are you to commit to attending program?: 10 What do you see as barriers to successfully being able to complete the program?: right hip pain discomfort seeing PT for it presently. What do you see as the benefits of succesfully completing the program? In other words, what do you hope to get out of participating in the program?: benefit is returning to exercise and loss of weight. Are there issues you are dealing with that will interfere with completing the program?: right shoulder maybe Do you have a spouse or signficant other, family or friends who will help support you to complete the program?: yes
--- NOTE | 2017-11-22 10:44 | CR.ITP_ITS ---
General Information - General Information Admitting Diagnosis: Coronary artery bypass graft on 09/21/2017 - Education/Goals Individual Counseling: Initial Assessment: Abnormal Cholesterol Levels, Overweight/Obesity, Diabetes, B. Waist Circumference >35/Females >40/Males, Hypertension Cardiac Rehabilitation Goals: 1. Maintain the individual as the primary focus of care. 2. To improve the patient's quality of life. 3. Identification of cardiac risk factors and provide cardiac risk factor management. 4. Enhance the psychosocial status of the patient. 5. Reconditioning enough to allow the patient to resume customary activities. 6. Control symptoms of cardiac disease Scale for measuring improvement of personal goals: Enter appropriate number in Comments. 2 = Unchanged. 3 = Slightly Better. 4 = Moderate Improvement. 5 = Met my Goal Personal Goals: Initial Assessment: Improve energy level, Participate in home exercise program, Get back to work, or to resume activities faster, Improve muscle strength and endurance, Improve diet and eating habits (eat healthier), Control risk factors (learn risk factor modification) Exercise - Initial Assessment - Visit Date of Eval: 11/22/17 - Established ITP; starting CR on 11/28/2017 - Stages of Change Stages of Change:: Action - Exercise Prescription Mode:: Treadmill, Rower, Airdyne, NuStep Angina with exercise?: No Target Heart Rate:: 109-117 - Hypertension Do any of the following apply?: Yes, Medication, Diet Resting Blood Pressure:: 118/68 - Intervention Home Exercise/Activity Goal:: Moderate Exercise 30 min/day x 5 days/wk - Education Goals:: Warm-up, RPE THAIS Scale, S/S, Safe Exercise, Self-Monitoring - Exercise Program Goals Exercise Program Goals: Aerobic Activity >30 min Nutrition - Initial Assessment - Program Goals Nutrition Program Goals: LDL <70. Total Cholesterol <200. HDL >45. Triglycerides <150. HgbA1C <7%. BMI <25 - Visit Date of Assessment:: 11/22/17 - Stages of Change Stages of Change:: Action - Diabetes Diabetes:: Yes Insulin: No Non-Insulin Dependent?: Yes - Weight Management Height: 5 ft 8 in Weight:: 217 lb Body Fat %:: 33.0 - Intervention Referral to dietitian:: Yes Referral to Diabetic Clinic:: Yes - Patient may be interested in DM Education and Weight Loss if covered by ins Will attend diet classes:: Yes - Education Gave educational materials for:: Signs & symptoms of hypoglycemia, Signs & symptoms of hyperglycemia, Relate diabetes to coronary artery disease, Healthy eating Tobacco - Initial Assessment - Program Goals Tobacco Program Goals: Complete smoking cessation. Attend education classes. Improve Knowledge Test score - Learning Barriers Learning Barriers: Vision, Ready to Learn - Family Support Do you have family support?: Yes - Tobacco Use Tobacco Use: Non-smoker Do you use smokeless tobacco?: No - Intervention Smoking Cessation Referral:: No Individual Education/Counseling:: No Education Schedule Given:: Yes - Education Gave educational material for:: Coronary artery disease, Risk factors, Sexuality , Medical compliance, Cardiac A&P, Angina signs & symptoms Psychosocial - Initial Assess - Target Goals Target Goals: Assess presence or absence of depression. Using a valid screening tool, maximizes coping skills. Positive support system - Stages of Change Stages of Change:: Action - Psychosocial Test Tool Used:: HANDS Depression Questionnaire - Intervention PS - Interventions: Yes Attend Stress Management Classes, No Referral to Mental Health, No Referral to [facility] Case Management, No Referral to Physician, No Uses Stress Management Skills - Education Gave educational materials for:: Coping techniques, Signs & symptoms of depression, Stress management, Relaxation techniques - Patient/Program Goal Preventative Medication(s):: Aspirin, Clopidogrel, Beta nico, Statin/lipid - Assistive Devices Assistive Devices:: None Fall Risk Assessed:: Yes Patient Health Questionnaire Initial Assessment 1. Little interest or pleasure in doing things: Not at all 2. Feeling down, depressed, or hopeless: Not at all 3. Trouble falling or staying asleep, or sleeping too much: Not at all 4. Feeling tired or having little energy: Not at all 5. Poor appetite or overeating: Not at all 6. Feeling bad about yourself -- or that you are a failure or have let yourself or your family down: Not at all 7. Trouble concentrating on things, such as reading the newspaper or watching television: Not at all 8. Moving or speaking so slowly that other people could have noticed. Or the opposite - being so fidgety or restless that you have been moving around a lot more than usual: Not at all 9. Thoughts that you would be better off , or of hurting yourself in some way: Not at all How difficult have these problems made it for you to do your work, take care of things at home, or get along with other people?: Not difficult at all Total Score: 0 IVANA-Q SV Test - Statements CAD is a disease of the arteries in the heart: False Examples of risk factors for heart disease: True Angina is chest pain or discomfort: True The benefits of resistance training include: True Eating more meat and dairy products: False Anti-platelet medications such as aspirin are important: True The only effective way to manage stress: False An exercise warm-up slowly increases heart rate: True Prepared, processed foods usually have high sodium: True Depression is common after a heart attack: True The statin medications lower cholesterol: True To control blood pressure, lower the amount of sodium: True If someone gets chest discomfort during walking: False Transfats are partially hydrogenated vegetable oils: True Sleep apnea that is not treated increases the risk: False To control cholesterol, one should become a vegetarian: False Someone knows if he/she is exercising at the right level: True Diabetes cannot be prevented with exercise & health eating: False Stress is a large risk for heart attack: True A diet that can help lower blood pressure is rich in: True - Total Score Total Correct Responses: 20 Self-Efficacy Initial Assessment We would like to know how confident you are in doing certain activities. Please select your confidence level for:: Select your confidence level for the following using the scale 1-10 where 1 is not at all confident and 10 is totally confident. Your score is the average of all 6 responses. Fatigue: How confident are you that you can keep the fatigue caused by your disease from interfering with the things you want to do? Select Number: 9 Physical Discomfort or Pain: How confident are you that you can keep the physical discomfort or pain of your disease from interfering with the things you want to do? Select Number: 9 Emotional Distress: How confident are you that you can keep the emotional distress caused by your disease from interfering with the things you want to do? Select Number: 9 Other Symptoms or Health Problems: How confident are you that you can keep other symptoms or health problems from interfering with the things you want to do? Select Number: 9 Different Tasks and Activities: How confident are you that you can do the different tasks and activities needed to manage your health condition so as to reduce your need to see a doctor? Select Number: 9 Medication: How confident are you that you can do things other than just taking medication to reduce how much your illness affects your everyday life? Select Number: 9 Total Score:: 9 Nutrition Survey - Nutrition Survey Instructions Scoring Instructions: Scoring is as follows: Yes = 1 points. No = 0 point. Patient score that is >/=12 is considered to be at potential nutritional risk and could benefit from a referral to a registered dietitian. - Nutrition Survey Initial Have you lost >10 lbs over the past 2 months without trying?: Yes Are you following a special diet at home for diabetes, low fat, or low salt?: No Are you interested in meeting with a dietitian for help understanding your diet? : No Do you eat less than 3 meals a day?: No Do you eat fatty meats (vivar, sausage, ribs, etc), fried foods, desserts, large amounts of salad dressings, margarine, butter, or cheese most days?: No Do you have food allergies? [Enter types in comment field]: Yes - [place], [place] Do you eat in restaurants more than 3 times a week?: Yes Do you season food with salt, seasoning salt, or garlic salt?: Yes Do you used canned, boxed, frozen meals, or soups, seasoning packets?: Yes Total Score:: 5
--- NOTE | 2017-11-22 10:45 | CR.HP_ITS ---
CR - History & Physical - General Arrival date:: 11/22/17 Arrival time:: 10:41 Date of Referral:: 10/31/17 Date of CR Evaluation:: 11/22/17 Referring Physician: DR. TEX RAMOS Primary Diagnosis: CABG @ [facility] - History of Present Cardiac Event Onset Date: Enter Onset Date of cardiac illnesses in Comment field below Current stable Angina Pectoris:: No Acute Myocardial Infarction within 12 months:: No Coronary Artery Bypass Graft:: Yes - 09/21/2017 Heart valve replacement or repair:: No PTCA or coronary stenting:: Yes - 2008 X 3; 1 STENT IN 2014 Heart or Heart-Lung Transplant:: No Heart Failure EF <35%:: No Were there any complications?: LEG SWELLING REDNESS GROIN PAIN - Medications Home Medications: Ambulatory Orders Medication Instructions Recorded Clopidogrel Bisulfate [Plavix] 75 mg PO DAILY 02/07/13 Nitroglycerin [Nitrostat] 0.4 mg SUBLINGUAL Q5M PRN 02/07/13 Cholecalciferol (Vitamin D3) 5,000 unit PO DAILY 01/16/14 [Vitamin D] Atorvastatin Calcium [Lipitor] 80 mg PO QHS 07/05/15 Carvedilol [Coreg (Beta Francisco)] 25 mg PO BID 07/05/15 Dulaglutide [Trulicity] 1.5 mg SQ QWEEK 09/09/17 Hydrochlorothiazide 12.5 mg PO DAILY 09/09/17 Magnesium Oxide 500 mg PO DAILY 09/09/17 Insulin Glargine,Hum.rec.anlog 30 unit SQ QHS 09/30/17 [Lantus] Warfarin [Coumadin (PBKC)] 2.5 mg PO DAILY 09/30/17 gemfibrozil 600 mg tablet 600 mg PO BID tab 10/31/17 hydrocodone 5 mg-acetaminophen 325 1 tab PO Q12H PRN tab 10/31/17 mg tablet lorazepam 0.5 mg tablet 0.5 mg PO BID PRN tab 10/31/17 - Allergies Allergies/Adverse Reactions: Allergies adhesive Allergy (Verified 09/30/17 21:13) Unknown lisinopril Allergy (Verified 09/30/17 21:13) Unknown Penicillins Allergy (Verified 09/30/17 21:13) Unknown - Sleep Disorder Evaluation Hx of Sleep Apnea: Yes Do you snore loudly (louder than talking or can be heard through closed doors)? : Yes - BiPAP at hs. Do you often feel tired/ fatigued/ sleepy during daytime?: No Has anyone observed you stop breathing during sleep?: No History of Hypertension (for STOP score): Yes STOP Results: Positive Advanced Directives - Advanced Directives Power of Associate Store Director: No Living Will: No Advance Directives Information Provided: No Advance Directives on File: No DNR Order?:: No - MOLST See MOLST form: No Past Medical History - Past Medical Illness Medical History: Past Medical History (Last Reviewed 10/31/17 @ 11:36 by Sana Owusu) Presence of stent in coronary artery (Chronic) Z95.5 PCI/stent to prox/distal RCA 2008; PCI/Stent to mid RCA and PCi of the PDA 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 PCI/stent to prox/distal RCA 2008; PCI/Stent to mid RCA and PCi of the PDA ; CABG x5- MANCERA to LAD, SVG to Ramus, SVG to PDA, SVG to PLV, SVG to OM, PV isolation, left atrial appendage excision 09/21/17 Paroxysmal atrial fibrillation (Acute) I48.0 Bradycardia (Acute) R00.1 Type 2 diabetes mellitus (Chronic) E11.9 Hypertension (Chronic) I10 PAD (peripheral artery disease) (Chronic) I73.9 PCI/Stent L fem artery 11/26/07; PCI Rt fem 02/17/08; PCI Left pop and sup femoral artery 03/09/10; PCI Rt pop and Rt SFA 05/11/10; PCI bilat LE arteriogram w/angioplasty 10/03/10; PCI/LLE 07/17/11 HLD (hyperlipidemia) (Chronic) E78.5 Acute renal failure (Acute) GERD (gastroesophageal reflux disease) K21.9 Raynauds disease I73.00 - Past Surgical History Surgical History: Past Surgical History (Last Reviewed 10/31/17 @ 11:36 by Sana Owusu) H/O coronary artery bypass surgery (Chronic) Onset Date: 09/21/17 Z95.1 CABG x5- MANCERA to LAD, SVG to Ramus, SVG to PDA, SVG to PLV, SVG to OM, PV isolation, left atrial appendage excision 09/21/17 History of angioplasty of peripheral vessel Z98.62 PCI/Stent L fem artery 11/26/07; PCI Rt fem 02/17/08; PCI Left pop and sup femoral artery 03/09/10; PCI Rt pop and Rt SFA 05/11/10; PCI bilat LE arteriogram w/angioplasty 10/03/10; PCI/LLE 07/17/11 Postsurgical percutaneous transluminal coronary angioplasty (PTCA) status Z98.61 PCI/stent to prox/distal RCA 2008; PCI/Stent to mid RCA and PCi of the PDA History of inguinal hernia repair Z98.890, Z87.19 Surgical History: angioplasty, - - right inguinal hernia, s/p stenst - Family History Summary Family History: Family History (Last Reviewed 10/31/17 @ 11:36 by Sana Owusu) Father Heart disease Grandmother Hypertension Grandfather Heart disease Myocardial infarction Social History - Smoking History Smoking Status: Never smoker Hx Tobacco Use: No Hx Smoking Exposure: No - Alcohol Use Alcohol Usage: Yes - occasional - Substance Abuse Hx Substance Use: No - Occupation Occupation (List type of work in comments):: 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 Recreational Activities: I am able to engage in all my recreational activities Social Environment - Status Marital Status: - Current Living Arrangements Living Environment:: Spouse - Children How many children do you have?: 2 - 1@ home still Do any of your children live nearby?: Yes - Safety Do you feel safe in your surroundings?: Yes - Assistance Do you need any assistance at home?: none Review of Systems - Review of Systems Hints: Right click = Denies ([place]ash). Left click = Reports ([place]) Review of Present Symptoms: Reports: Operative Discomfort - very little, weight limit 20#, still having some hip lower leg pain from positioning during surgery. , Wound Healing, Heart Arrhythmia/Irregularities - h/o of paroxysmal atrial fibrillationa nd bradycardia, did a ablation procedure during bypass surgery haven't had issues since., Appetite - Normal. Denies: Shortness of Breath at Rest, Shortness of Breath with Exertion, Angina, Dizziness/Lightheadedness, Fatigue, Appetite - Special Diet, Sleep - Normal - minimum slepp little as four hours a night. Used to work nights so it has been regular pattern to not sleep regularly., Sexual Changes - Pain Is Patient Pain Free?: No Pain Location: pelvis - walk to long, standing to long and peripheral lower extremity stents., lower extremity Pain Level: 0/10 Risk Factor Assessment - Chief Complaint Chief Complaint: Patient is a 62 year old male patient of Dr. Tex Ramos who presents to cardiac rehab today following recent CABG on 09/21/2017 at the [facility]. The patient has a previous CAD history with previous coronary stents in adn lower extremity stents for PAD. - Vital Signs Temperature: 98.7 F Respiratory Rate: 16 Pulse Ox: 97 Nailbeds:: pink - Pulse Pulse Rate: 95 Pulse Rhythm: Regular - Hypertension How long have you been treated?: 20 On medication(s)?: yes Blood Pressure Sitting - Right Arm: 118/68 - Obesity Height: 5 ft 8 in Weight:: 217 lb Weight in Pounds: 217.0 lbs Weight Source: Standing Scale Body Mass Index (BMI): 33.0 Desired Body Weight: 171 Nutritional Referral for Obesity: Yes - Patient could benefit from structured weight program. - Physical Inactivity Physical Inactivity: Reg Exercise 30 min/day - PT therapy for hip - Risk Stratification Risk Guidelines: Lowest Risk: Risk Factor for Smoking, Risk Factor for Dyslipidemia, Risk Factor for Diabetes - non-insulin dependent DM, Risk Factor for Hypertension, Risk Factor for Sedentary Lifestyle, Risk Factor for Depression, Highest Risk: Risk Factor for Obesity - For Smoking Smoking Risk Guidelines: Smoking Low Risk: None or quit greater than 6 months ago. Smoking Moderate Risk: Smoker or quit 6 months or less ago. Smoking High Risk: Smoker - For Dyslipidemia Dyslipidemia Risk Guidelines: Low Risk: Moderate Risk: High Risk: 15-25% fat 25.1-29% fat >/= 30% fat. <7% sat fat 7-9% sat fat >9% sat fat. <150 mg chol 150-299 mg chol >/= 300 mg chol. LDL <100 LDL 100-129 LDL >/= 130. Chol/HDL ratio <5.0 Chol/HDL ratio 5.0-6.0 Chol/HDL ratio >6.0. Triglycerides <100 Triglycerides 100-149 Triglycerides >/= 150 - For Diabetes Mellitus Diabetes Risk Guidelines: Diabetes Low Risk: HgA1c <6.5% and/or FBG <120. Diabetes Moderate Risk: HgA1c 6.6-7.9% and/or FBG 120-180. Diabetes High Risk: HgA1c >/= 8% and/or FBG >180 - For Obesity/Overweight Obesity/Overweight Risk Guidelines: Obesity Low Risk: BMI <25.0. Obesity Moderate Risk: BMI 25-29.9. Obesity High Risk: BMI >/= 30.0 - For Hypertension Hypertension Risk Guidelines: Hypertension Low Risk: Systolic <120 and Diastolic <80. Hypertension Moderate Risk: Systolic 120-139 and Diastolic 80-89. Hypertension High Risk: Systolic >/= 140 and Diastolic >/= 90 - For Sedentary Lifestyle Sedentary Lifestyle Risk Guidelines: Sedentary Lifestyle Low Risk: >/= 1 ,500 kcal/week. Sedentary Lifestyle Moderate Risk: 700-1,499 kcal/week. Sedentary Lifestyle High Risk: < 700 kcal/week - For Depression Depression Risk Guidelines: Depression Low Risk: Not clinically depressed. Depression Moderate Risk: Mildly depressed. Depression High Risk: Clinically depressed - Family History Family History: Family History (Last Reviewed 10/31/17 @ 11:36 by Sana Owusu) Father Heart disease Grandmother Hypertension Grandfather Heart disease Myocardial infarction Motivation - Motivation to Participate On a scale of 1 to 10, how prepared are you to commit to attending program?: 10 What do you see as barriers to successfully being able to complete the program? : right hip pain discomfort seeing PT for it presently. What do you see as the benefits of succesfully completing the program? In other words, what do you hope to get out of participating in the program?: benefit is returning to exercise and loss of weight. Are there issues you are dealing with that will interfere with completing the program?: right shoulder maybe Do you have a spouse or signficant other, family or friends who will help support you to complete the program?: yes
[2017-11-22 11:08] VITALS: BP 118/68; PULSE 95; RESP 16; TEMP 37.1; O2SAT 97; BMI 33.0
[2017-11-22 11:54] VITALS: BP 118/68
== END ==
PROVIDERS: Family Provider Family Medicine; PCP Family Medicine; Visit Provider Internal Medicine Cardiovascular Disease
DX: I25.10 Atherosclerotic heart disease of native coronary artery without angina pectoris (principal); Z95.1 Presence of aortocoronary bypass graft

== ENCOUNTER 2017-12-21 14:15 | Outpatient (RCR) | payer OTHER, SELFPAY | END 2017-12-23 23:59 | LOC: CR 14:15 | PROVIDERS: Family Provider Family Medicine; PCP Family Medicine; Visit Provider Internal Medicine Cardiovascular Disease | DX: I25.10 Atherosclerotic heart disease of native coronary artery without angina pectoris (principal); Z95.1 Presence of aortocoronary bypass graft | CPT/HCPCS: 93798 ==

== ENCOUNTER 2017-12-21 15:00 | Outpatient (RCR) | payer OTHER, SELFPAY ==
--- NOTE | 2017-11-06 16:01 | HP.PTEVAL_ITS ---
Patient's Visit Information NOMAN STONE is a 62 year old M referred to Physical Therapy by CYNTHIA Pryor with a diagnosis of R hip pain.. Date of Evaluation: 11/06/17 Physical Therapist: Waqas Mayfield DPT, [place] - Visit Plan Frequency: 2-3x /Week Duration: 4-6 Weeks Plan: pt has recent CABGx5 and has precautions with UE usage. 2-3x/ week x 4-6 as needed for. 1. US R psoas nonthermal and STM cross friction to same. 2. stretch R psoas and quad, rollout quad. 3. eccentric R hip flexion strength and R hip strength as tolerated and progress stretch and strength to HEP - Subjective Subjective: Had cardiac surgery 09/21 CABGx5. Two weeks after that rolled in bed and felt pop in R groin. and it hurt. Now standing ore than 10 minutes hurts. Walking is OK but standing around is worse. Also feels it in bed rolling R to L. Fees like ice pick in R groin. This pain is new. Hard to controlled sit into chair due to pain. No numbness or tingling. Xrays showed normal hip and no OA. Had a veinous doppler and it was clear. sleeping is only interrupted if he moves wrong. Hurts to lift R leg with walking sometimes. Doctor thinks possible tear of labrum. No MRI yet. Has claudication in legs and takes norco and up two due to recent chest surgery. Not in cardiac rehab yet. Had prestress test adn passed. No precautions from moodispaw except avoid chest muscle activity. 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 [place] on feet most of day. Basic ADLs are OK adn I. 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 Standing too long can limit building computers. - Pain R groin Pain Intensity (Out of 10): 0 Pain Intensity Range: 0, 10 - Objective Walks with mild R antalgia I, transitions to and fro sit I, to supine I, needs assist up from supine due to chest. Steps are reciprocal with slight R pain when lifting R leg today. Palpation shows tenderness in R psoas area. + R YUDY and FADDIR. - Scour. ROM is very painful at 110 degrees flexion passively , Otherwise WFL, painful with IR and ext rotation. AROM hurts to flex R hip worse SLR. extension is to 0 degrees and very tight in R quad and hip flexor. R hip flexor strength is 3/5, abd and add 4+, ext 4- and rotations are 4-, only flexion is painful, slight discomfort abd. reflexes 1/3 in patella and achilles. Sensation WNL to gross light touch in LE. - Goals Goal 1:: Pain R groin 2/10 at worst and 80% better. Goal Time Frame: 4-6 Weeks Goal 2:: patient ambulate and transition consistenty with out hip pain or antalgia. Goal Time Frame: 4-6 Weeks Goal 3:: I approp HEp to minimize future problems. Goal Time Frame: 4-6 Weeks - Rehabilitation Potential Physical Therapy Diagnosis: R hip pain , psoas tendonitis vs labral pathology. Rehabilitation Potential: Fair - Anticipated Interventions Patient/Client Instruction: Educate patient on: Condition, Plan of Care For the Purpose of:: To decrease pain, To decrease swelling/inflammation Therapeutic Exercise to Include: Strength training, Flexibilty training, Passive ROM, Active ROM For the Purpose of:: To decrease pain, To increase ROM, To improve nutrient delivery to tissue, To improve ability of physical actions for home/community/ work/leisure Manual Therapy Techniques to Include: Soft tissue mobilization Comment: CFM R psoas For the Purpose of:: To decrease swelling/inflammation Ultrasound (thermal/non thermal): Yes - nonthermal For the Purpose of:: To decrease pain, To decrease swelling/inflammation Thank you for the opportunity to evaluate your patient. For Medicare and Medicare HMO plans, please review the plan of care and approve it. It will need to be FAXED BACK to us at [phone] for Medicare purposes. Please let me know if there are questions or concerns regarding this plan of care. Physician Signature: Date:
--- NOTE | 2017-12-21 15:39 | HP.PTDCSUM ---
HP - PT D/C Summary It has been my pleasure to treat NOMAN STONE under orders from CYNTHIA Pryor, for the diagnosis of R hip pain. for a total of 14 visit(s). Discharge Date: 12/21/17 Please see the following information for a summary of their discharge status. - Subjective Subjective: Doing a lot better. Walking and standing longer. No pain turning in bed anymore. Lifting R leg when walk can still be a challenge, has to think about it getting into car. Doing cardiac rehab and doing stretching at home with the band. No f/u scheduled with [facility]. Hip only hurts if doesn't lift it high enough to get in car. - Pain R groin Pain Intensity (Out of 10): 1 - Overall Improvement % Improvement: 90 - Objective Objective/Function: HS still tight R > L at -20 90/90. Gait is normal. Steps are normal with one rail descending. DOINE EXCELLENT OVERALL. MUCH BETTER. - Goals Goal 1:: Pain R groin 2/10 at worst and 80% better. Goal Progress: Goal Met Goal 2:: patient ambulate and transition consistenty with out hip pain or antalgia. Goal Progress: Goal Met Goal 3:: I approp HEp to minimize future problems. Goal Progress: Goal Met - Plan Plan: D/C - D/C Information Discharge Comments: PT DOING WELL WITH HIP PAIN AND WILL CONTINUE HEP INCLUDING IN GYM. WILL CONTACT DOCTOR IF WORSENS AGAIN. If there are questions or concerns regarding this patient's physical therapy, please feel free to call me at [phone]. Thank you for the referral of this patient. Sincerely, Waqas Mayfield, DPT, OC
== END 2017-12-21 19:00 | disposition home or self-care (01) ==
LOC: PT 15:00
PROVIDERS: Family Provider Family Medicine; PCP Family Medicine; Visit Provider Physician Assistant Surgical
DX: M25.551 Pain in right hip (principal)
CPT/HCPCS: 97035; 97110; 97140; 97162; 97530

== ENCOUNTER 2018-01-23 14:15 | Outpatient (RCR) | payer OTHER, SELFPAY ==
--- NOTE | 2017-12-31 08:32 | CR.ITP_ITS ---
General Information - General Information Admitting Diagnosis: CABG - Education/Goals Cardiac Rehabilitation Goals: 1. Maintain the individual as the primary focus of care. 2. To improve the patient's quality of life. 3. Identification of cardiac risk factors and provide cardiac risk factor management. 4. Enhance the psychosocial status of the patient. 5. Reconditioning enough to allow the patient to resume customary activities. 6. Control symptoms of cardiac disease Scale for measuring improvement of personal goals: Enter appropriate number in Comments. 2 = Unchanged. 3 = Slightly Better. 4 = Moderate Improvement. 5 = Met my Goal Exercise - 30-day Assessment - Visit Date of Eval: 12/31/17 - Stages of Change Stages of Change:: Action - Exercise Prescription Mode:: Treadmill, Airdyne Frequency (x/week): 30 Duration:: 3 METs - Progression: 0.5-1 MET as tolerated: 5 Target Heart Rate:: 126-133 Max HR 126 - Hypertension Resting Blood Pressure:: 118/64 Peak Exercise Blood Pressure:: 158/78 - Intervention Home Exercise/Activity Goal:: Sitting Time <3 hrs/day - Education Goals:: Warm-up, RPE THAIS Scale, S/S, Safe Exercise, Self-Monitoring - Exercise Program Goals Exercise Program Goals: Aerobic Activity >30 min, B/P <130/80 Nutrition - 30-Day Assessment - Program Goals Nutrition Program Goals: LDL <70. Total Cholesterol <200. HDL >45. Trig lycerides <150. HgbA1C <7%. BMI <25 - Visit Date of Eval: 12/31/17 - Stages of Change Stages of Change:: Action - Lipids Has the patient seen the dietitian?: No - Diabetes Diabetes:: Yes - Weight Management Weight:: 100.017 kg - Intervention Referral to dietitian:: No Referral to Diabetic Clinic:: No Will attend diet classes:: Yes - Education Attended class for:: Signs & symptoms of hypoglycemia, Signs & symptoms of hyperglycemia, Relate diabetes to coronary artery disease, Healthy eating Tobacco - Initial Assessment - Program Goals Tobacco Program Goals: Complete smoking cessation. Attend education classes. Improve Knowledge Test score - Learning Barriers Learning Barriers: Vision, Ready to Learn Tobacco - 30-Day Assessment - Program Goals Tobacco Program Goals: Complete smoking cessation. Attend education classes. Improve Knowledge Test score - Stage of Change Stages of Change:: Action - Learning Barriers Learning Barriers: Participates in education - Family Support Do you have family support?: Yes - Tobacco Use Tobacco Use: Non-smoker Do you use smokeless tobacco?: No - Intervention Smoking Cessation Referral:: No Individual Education/Counseling:: No Education Schedule Given:: Yes - Education Attended class for:: Tobacco triggers, Coronary artery disease, Risk factors, Sexuality, Medical compliance, Cardiac A&P, Angina signs & symptoms Psychosocial - Initial Assess - Target Goals Target Goals: Assess presence or absence of depression. Using a valid screening tool, maximizes coping skills. Positive support system - Psychosocial Test Tool Used:: HANDS Depression Questionnaire - Assistive Devices Fall Risk Assessed:: Yes Psychosocial - 30-Day Assess - Target Goals Target Goals: Assess presence or absence of depression. Using a valid screening tool, maximizes coping skills. Positive support system - Stages of Change Stages of Change:: Action - Psychosocial Test Tool Used:: HANDS Depression Questionnaire - Intervention PS - Interventions: Yes Attend Stress Management Classes, Yes Uses Stress Management Skills, No Referral to Mental Health, No Referral to [facility] Case Management, No Referral to Physician - Education Attended classes for:: Coping techniques, Signs & symptoms of depression, Stress management, Relaxation techniques - Assistive Devices Assistive Devices:: None Fall Risk Assessed:: Yes Patient Health Questionnaire 30-Day Re-eval Assessment 1. Little interest or pleasure in doing things: Not at all 2. Feeling down, depressed, or hopeless: Not at all 3. Trouble falling or staying asleep, or sleeping too much: Not at all 4. Feeling tired or having little energy: Not at all 5. Poor appetite or overeating: Not at all 6. Feeling bad about yourself -- or that you are a failure or have let yourself or your family down: Not at all 7. Trouble concentrating on things, such as reading the newspaper or watching television: Not at all 8. Moving or speaking so slowly that other people could have noticed. Or the opposite - being so fidgety or restless that you have been moving around a lot more than usual: Not at all 9. Thoughts that you would be better off , or of hurting yourself in some way: Not at all How difficult have these problems made it for you to do your work, take care of things at home, or get along with other people?: Not difficult at all Total Score: 0 Self-Efficacy 30-Day Re-eval Assessment We would like to know how confident you are in doing certain activities. Please select your confidence level for:: Select your confidence level for the following using the scale 1-10 where 1 is not at all confident and 10 is totally confident. Your score is the average of all 6 responses. Fatigue: How confident are you that you can keep the fatigue caused by your disease from interfering with the things you want to do? Select Number: 9 Physical Discomfort or Pain: How confident are you that you can keep the physical discomfort or pain of your disease from interfering with the things you want to do? Select Number: 9 Emotional Distress: How confident are you that you can keep the emotional distress caused by your disease from interfering with the things you want to do? Select Number: 9 Other Symptoms or Health Problems: How confident are you that you can keep other symptoms or health problems from interfering with the things you want to do? Select Number: 9 Different Tasks and Activities: How confident are you that you can do the different tasks and activities needed to manage your health condition so as to reduce your need to see a doctor? Select Number: 9 Medication: How confident are you that you can do things other than just taking medication to reduce how much your illness affects your everyday life? Select Number: 9 Total Score:: 9
[2017-12-31 08:34] VITALS: BP 118/64; BP 158/78
== END 2018-01-23 23:59 ==
LOC: CR 14:15
PROVIDERS: Family Provider Family Medicine; PCP Family Medicine; Referring Provider Internal Medicine Cardiovascular Disease; Visit Provider Internal Medicine Cardiovascular Disease
DX: I25.10 Atherosclerotic heart disease of native coronary artery without angina pectoris (principal); Z95.1 Presence of aortocoronary bypass graft
CPT/HCPCS: 93798

== ENCOUNTER 2018-02-22 14:15 | Outpatient (RCR) | payer OTHER, SELFPAY ==
[2018-01-24 00:26] VITALS: BP 118/64; BP 158/78
--- NOTE | 2018-01-28 08:11 | PCM.CR.ITP ---
Exercise - 60-Day Assessment - Visit Date of Eval: 01/28/18 Session #:: 24 - Stages of Change Stages of Change:: Action - Exercise Prescription Mode:: Treadmill, Rower, Airdyne, NuStep Frequency (x/week): 3 Duration:: 30-35 METs: 5.5 Target Heart Rate:: 126-133 - Hypertension Resting Blood Pressure:: 102/60 Peak Exercise Blood Pressure:: 102/60 Medication Changes:: No - Intervention Home Exercise/Activity Goal:: Moderate Exercise 30 min/day x 5 days/wk - Education Goals:: Warm-up, RPE THAIS Scale, S/S, Safe Exercise, Self-Monitoring - Exercise Program Goals Exercise Program Goals: Aerobic Activity >30 min Nutrition - 60-Day Assessment - Program Goals Nutrition Program Goals: LDL <70. Total Cholesterol <200. HDL >45. Triglycerides <150. HgbA1C <7%. BMI <25 - Visit Date of Eval: 01/28/18 - Stages of Change Stages of Change:: Action - Lipids Has the patient seen the dietitian?: No - Diabetes Diabetes:: Yes Insulin: Yes Non-Insulin Dependent?: Yes - Intervention Referral to dietitian:: No Referral to Diabetic Clinic:: No Will attend diet classes:: Yes - Education Attended class for:: Signs & symptoms of hypoglycemia, Signs & symptoms of hyperglycemia, Relate diabetes to coronary artery disease, Healthy eating Tobacco - Initial Assessment - Program Goals Tobacco Program Goals: Complete smoking cessation. Attend education classes. Improve Knowledge Test score - Learning Barriers Learning Barriers: Vision, Ready to Learn Tobacco - 60-Day Assessment - Program Goals Tobacco Program Goals: Complete smoking cessation. Attend education classes. Improve Knowledge Test score - Stage of Change Stages of Change:: Action - Learning Barriers Learning Barriers: Participates in education - Family Support Do you have family support?: Yes - Tobacco Use Tobacco Use: Non-smoker Do you use smokeless tobacco?: No - Intervention Smoking Cessation Referral:: No Individual Education/Counseling:: No Education Schedule Given:: Yes - Education Attended class for:: Coronary artery disease, Risk factors, Sexuality, Medical compliance, Cardiac A&P, Angina signs & symptoms Psychosocial - Initial Assess - Target Goals Target Goals: Assess presence or absence of depression. Using a valid screening tool, maximizes coping skills. Positive support system - Psychosocial Test Tool Used:: HANDS Depression Questionnaire - Assistive Devices Fall Risk Assessed:: Yes Psychosocial - 60-Day Assess - Target Goals Target Goals: Assess presence or absence of depression. Using a valid screening tool, maximizes coping skills. Positive support system - Stages of Change Stages of Change:: Action - Psychosocial Test Tool Used:: HANDS Depression Questionnaire - Intervention PS - Interventions: Yes Attend Stress Management Classes, Yes Uses Stress Management Skills, No Referral to Mental Health, No Referral to [facility] Case Management, No Referral to Physician Patient Health Questionnaire 60-Day Re-eval Assessment 1. Little interest or pleasure in doing things: Not at all 2. Feeling down, depressed, or hopeless: Not at all 3. Trouble falling or staying asleep, or sleeping too much: Not at all 4. Feeling tired or having little energy: Not at all 5. Poor appetite or overeating: Not at all 6. Feeling bad about yourself -- or that you are a failure or have let yourself or your family down: Not at all 7. Trouble concentrating on things, such as reading the newspaper or watching television: Not at all 8. Moving or speaking so slowly that other people could have noticed. Or the opposite - being so fidgety or restless that you have been moving around a lot more than usual: Not at all 9. Thoughts that you would be better off , or of hurting yourself in some way: Not at all Total Score: 0 Self-Efficacy 60-Day Re-eval Assessment We would like to know how confident you are in doing certain activities. Please select your confidence level for:: Select your confidence level for the following using the scale 1-10 where 1 is not at all confident and 10 is totally confident. Your score is the average of all 6 responses. Fatigue: How confident are you that you can keep the fatigue caused by your disease from interfering with the things you want to do? Select Number: 10 Physical Discomfort or Pain: How confident are you that you can keep the physical discomfort or pain of your disease from interfering with the things you want to do? Select Number: 10 Emotional Distress: How confident are you that you can keep the emotional distress caused by your disease from interfering with the things you want to do? Select Number: 10 Other Symptoms or Health Problems: How confident are you that you can keep other symptoms or health problems from interfering with the things you want to do? Select Number: 10 Different Tasks and Activities: How confident are you that you can do the different tasks and activities needed to manage your health condition so as to reduce your need to see a doctor? Select Number: 10 Medication: How confident are you that you can do things other than just taking medication to reduce how much your illness affects your everyday life? Select Number: 10 Total Score:: 10
[2018-01-28 08:13] VITALS: BP 102/60
== END 2018-02-22 23:59 ==
LOC: CR 14:15
PROVIDERS: Family Provider Family Medicine; PCP Family Medicine; Referring Provider Internal Medicine Cardiovascular Disease; Visit Provider Internal Medicine Cardiovascular Disease
DX: I25.10 Atherosclerotic heart disease of native coronary artery without angina pectoris (principal); Z95.1 Presence of aortocoronary bypass graft
CPT/HCPCS: 93798

== ENCOUNTER 2018-02-24 23:10 | Inpatient (IN) | payer OTHER, SELFPAY ==
[2018-02-24 23:11] VITALS: BP 163/89; PULSE 87; RESP 18; TEMP 36.3; O2SAT 94; BMI 35.4
[2018-02-24 23:20] VITALS: BP 179/102; PULSE 86; RESP 16; O2SAT 94
--- NOTE | 2018-02-24 23:34 | EKG12_ITS ---
Test Reason : CP Blood Pressure : / mmHG Vent. Rate : 081 BPM Atrial Rate : 081 BPM P-R Int : 168 ms QRS Dur : 098 ms QT Int : 372 ms P-R-T Axes : 064 063 067 degrees QTc Int : 432 ms Normal sinus rhythm Normal ECG Confirmed by RICHARD JAEGER, BASIM ([id number]), marketing editor CHRISTINE MILLER ([id number] on 02/26/2018 3:21:00 PM Referred By: BB Confirmed By:BASIM RAMOS MD
--- NOTE | 2018-02-24 23:34 | RAD_ITS ---
STUDY: X-RAY CHEST REASON FOR EXAM: Male, 62 years old. Chest pain. TECHNIQUE: Single AP portable view of the chest. COMPARISON: September 09, 2017. FINDINGS: The lungs are expanded. There is interstitial thickening present in both lungs. There is no demonstrated pleural abnormality. There is borderline cardiomegaly. Normal mediastinum and stefanie. There is prominence of the pulmonary hilar arteries with peripheral pulmonary vascular congestion. There is atherosclerotic calcification of the aortic arch with tortuosity. Normal visualized thoracic spine. Normal visualized ribs, clavicles, and shoulders. There is no demonstrated abnormality of the visualized soft tissue structures of the upper abdomen. RAD/Chest 1 View (Portable) IMPRESSION: Borderline cardiomegaly and mild pulmonary congestion. Electronically Signed: Kalli Alejandro MD at 0:22 EST , Service support ,
--- NOTE | 2018-02-24 23:40 | ED.VIS.GEN ---
History of Present Illness Chief Complaint: Chest Pain Informant: Patient Onset: Days - 2 Context: Gradual Onset Timing: Continuous Quality: tight Location: substernal w/ radiation into left chest and left shoulder/trapezius area Current Severity: Severe Maximum Severity: Severe Worsened by: exertion Relieved by: partially by rest, until past couple hrs Associated Symptoms: n/v 2d ago. sob. no sweating, palpitations, near-syncope. Narrative: Patient had a CABG about 4 months ago, he was not having chest pain just fatigue and had a diagnostic heart cath that was abnormal, sent to [facility] for the surgery. He had 4 stents prior to that, and peripheral vascular disease in his legs with stents for which he is currently still on Coumadin as well as clopidogrel. No history of venous thromboembolism, but he states for the past 1.5 weeks he has been having sharp pains in his right proximal medial thigh. No swelling downstream, but he has chronic swelling in his left leg since 4 months ago because of vein harvesting for CABG. He has chronic mild soreness in his sternum because of the surgery, states this is different. - Past Medical History (1) Paroxysmal atrial fibrillation Status: Chronic (2) Atherosclerotic heart disease of [place] coronary artery without angina pectoris Status: Chronic Comment: PCI/stent to prox/distal RCA 2008; PCI/Stent to mid RCA and PCi of the PDA 04/20/15; CABG x5- MANCERA to LAD, SVG to Ramus, SVG to PDA, SVG to PLV, SVG to OM, PV isolation, left atrial appendage excision 09/21/17 (3) HLD (hyperlipidemia) Status: Chronic (4) Hypertension Status: Chronic (5) PAD (peripheral artery disease) Status: Chronic Comment: PCI/Stent L fem artery 11/26/07; PCI Rt fem 02/17/08; PCI Left pop and sup femoral artery 03/09/10; PCI Rt pop and Rt SFA 05/11/10; PCI bilat LE arteriogram w/angioplasty 10/03/10; PCI/LLE 07/17/11 (6) Type 2 diabetes mellitus Status: Chronic Past Medical History - Allergies and Home Meds Allergies/Adverse Reactions: Allergies adhesive Allergy (Verified 02/24/18 23:11) Unknown lisinopril Allergy (Verified 02/24/18 23:11) Unknown Penicillins Allergy (Verified 02/24/18 23:11) Unknown Primary Care Physician: Andrew Gomez III, MD [Primary Care Provider] - Doctors: Dr. Coker Surgical History: angioplasty - w/ cardiac stent x 4, coronary bypass surgery, - - right inguinal hernia, s/p iliac stents bilat Smoking Status: Never smoker - Family History Paternal Family History: Family History (Last Reviewed 02/21/18 @ 13:07 by Khushbu Palomares) Father Heart disease Grandmother Hypertension Grandfather Heart disease Myocardial infarction Family History: Reports: Heart Disease Maternal Family History: Family History (Last Reviewed 02/21/18 @ 13:07 by Khushbu Palomares) Father Heart disease Grandmother Hypertension Grandfather Heart disease Myocardial infarction Family History: Reports: Unknown Review of Systems General: Reports: Malaise. Denies: Chills, Fever, Sweats Eyes: Denies: Visual changes - bilaterally, Diplopia ENT: Denies: Rhinorrhea, Sore throat Cardiovascular: Reports: Chest pain. Denies: Palpitations, Heart racing Respiratory: Reports: Dyspnea, Dyspnea on exertion. Denies: Cough Gastrointestinal: Reports: Constipation - chronic. Denies: Abdominal pain, Nausea, Vomiting, Diarrhea, Melena, Hematochezia Genitourinary: Denies: Dysuria, Hematuria, Frequency Musculoskeletal: Reports: Swelling - LLE, Extremity Pain - RLE. Denies: Back pain Skin: Denies: Rash, Wounds Neurological: Denies: Headache, Weakness, Numbness Physical Exam Vital Signs/Narrative: Vital Signs Temp Pulse Resp BP Pulse Ox 02/24/18 23:20 86 16 179/102 H 94 02/24/18 23:11 97.4 F L 87 18 163/89 H 94 Inital Vital Signs reviewed: Yes General: Well nourished, Well developed, - - NAD, but appears uncomfortable Head: Normocephalic, Atraumatic Eyes: Perrl, EOMI ENT: Moist mucous membranes, No rhinorrhea Neck: Supple, Nontender Cardiovascular: Regular rate, Regular rhythm, No murmurs Respiratory: No distress, CTA bilaterally, Chest nontender Abdomen: Soft, Nontender, Nondistended, Normal bowel sounds Back: Nontender, Normal Inspection Extremities: Nontender, Edema - LLE 1+ Skin: Normal color, No rash Neurological: Alert, Oriented x3, Cranial nerves II-XII grossly intact, Normal Strength, Normal Sensation Psychological: Normal affect Diagnostic/Tx/Re-eval Impressions Chest X-Ray 02/24/18 23:34 IMPRESSION: Borderline cardiomegaly and mild pulmonary congestion. Electronically Signed: Kalli Alejandro MD at 0:22 EST , Service support , 02/24/18 23:34 Chest 1 View (Portable) [RAD] Stat Laboratory Results 02/24/18 02/24/18 02/24/18 23:50 23:50 23:50 WBC 8.1 RBC 4.75 Hgb 14.0 Hct 42.1 MCV 88.6 MCH 29.5 MCHC 33.3 RDW 15.3 H RDW Differential 50.0 H Plt Count 180 MPV 9.9 Immature Gran % (Auto) 0.500 Neut % (Auto) 68.3 Lymph % (Auto) 22.5 Nance % (Auto) 6.1 Eos % (Auto) 2.5 Baso % (Auto) 0.1 Absolute Neuts (auto) 5.5 Absolute Lymphs (auto) 1.81 Total Counted Not Reportable PT 24.0 H INR 2.1 Sodium 139 Potassium 4.1 Chloride 104 Carbon Dioxide 28.0 Anion Gap 7 BUN 21 H Creatinine 1.90 H Estim Creat Clear Calc 38.50 Est GFR (MDRD) Af Amer 46 L Est GFR (MDRD) Non-Af 38 L BUN/Creatinine Ratio 11.1 Glucose 300 H Calcium 8.6 Troponin I 0.020 - Rhythm Strip Rhythm Strip: Sinus Rhythm Rate: 80 Ectopy: None - EKG Initial EKG Interpretation: Sinus Rhythm, No Acute Injury Pattern, - - nml axis. normal EKG. Prior: Unchanged - Medical Decision Making Labs show renal insufficiency and a troponin that is well within normal limits at 0.02. His EKG is normal. However, his symptoms are concerning, and completely resolved with a set of 3 nitroglycerin sublingual's. Paste is placed on his chest. His chest x-ray is unremarkable with narrow mediastinum. I discussed with cardiology Dr. Coker, who agrees with admission and evaluation tomorrow. Discussed with hospitalist. Patient is stable, will admit to [facility]. ED Disposition - Plan for ED Patient: Disposition: Acute Care Hospital [facility] Chief Complaint: Chest Pain Diagnosis: Chest pain, unspecified, Renal insufficiency Referrals: Andrew Gomez III, MD [Primary Care Provider] -
[2018-02-24 23:41] VITALS: O2SAT 93
[2018-02-24 23:43] VITALS: BP 179/102; PULSE 88
--- NOTE | 2018-02-24 23:44 | ED.DCSUM_ITS ---
History of Present Illness Chief Complaint: Chest Pain Informant: Patient Onset: Days - 2 Context: Gradual Onset Timing: Continuous Quality: tight Location: substernal w/ radiation into left chest and left shoulder/trapezius area Current Severity: Severe Maximum Severity: Severe Worsened by: exertion Relieved by: partially by rest, until past couple hrs Associated Symptoms: n/v 2d ago. sob. no sweating, palpitations, near-syncope. Narrative: Patient had a CABG about 4 months ago, he was not having chest pain just fatigue and had a diagnostic heart cath that was abnormal, sent to [facility] for the surgery. He had 4 stents prior to that, and peripheral vascular disease in his legs with stents for which he is currently still on Coumadin as well as clopidogrel. No history of venous thromboembolism, but he states for the past 1.5 weeks he has been having sharp pains in his right proximal medial thigh. No swelling downstream, but he has chronic swelling in his left leg since 4 months ago because of vein harvesting for CABG. He has chronic mild soreness in his sternum because of the surgery, states this is different. - Past Medical History (1) Paroxysmal atrial fibrillation Status: Chronic (2) Atherosclerotic heart disease of [place] coronary artery without angina pectoris Status: Chronic Comment: PCI/stent to prox/distal RCA 2008; PCI/Stent to mid RCA and PCi of the PDA 04/20/15; CABG x5- MANCERA to LAD, SVG to Ramus, SVG to PDA, SVG to PLV, SVG to OM, PV isolation, left atrial appendage excision 09/21/17 (3) HLD (hyperlipidemia) Status: Chronic (4) Hypertension Status: Chronic (5) PAD (peripheral artery disease) Status: Chronic Comment: PCI/Stent L fem artery 11/26/07; PCI Rt fem 02/17/08; PCI Left pop and sup femoral artery 03/09/10; PCI Rt pop and Rt SFA 05/11/10; PCI bilat LE arteriogram w/angioplasty 10/03/10; PCI/LLE 07/17/11 (6) Type 2 diabetes mellitus Status: Chronic Past Medical History - Allergies and Home Meds Allergies/Adverse Reactions: Allergies adhesive Allergy (Verified 02/24/18 23:11) Unknown lisinopril Allergy (Verified 02/24/18 23:11) Unknown Penicillins Allergy (Verified 02/24/18 23:11) Unknown Primary Care Physician: Andrew Gomez III, MD [Primary Care Provider] - Doctors: Dr. Coker Surgical History: angioplasty - w/ cardiac stent x 4, coronary bypass surgery, - - right inguinal hernia, s/p iliac stents bilat Smoking Status: Never smoker - Family History Paternal Family History: Family History (Last Reviewed 02/21/18 @ 13:07 by Khushbu Palomares) Father Heart disease Grandmother Hypertension Grandfather Heart disease Myocardial infarction Family History: Reports: Heart Disease Maternal Family History: Family History (Last Reviewed 02/21/18 @ 13:07 by Khushbu Palomares) Father Heart disease Grandmother Hypertension Grandfather Heart disease Myocardial infarction Family History: Reports: Unknown Review of Systems General: Reports: Malaise. Denies: Chills, Fever, Sweats Eyes: Denies: Visual changes - bilaterally, Diplopia ENT: Denies: Rhinorrhea, Sore throat Cardiovascular: Reports: Chest pain. Denies: Palpitations, Heart racing Respiratory: Reports: Dyspnea, Dyspnea on exertion. Denies: Cough Gastrointestinal: Reports: Constipation - chronic. Denies: Abdominal pain, Nausea, Vomiting, Diarrhea, Melena, Hematochezia Genitourinary: Denies: Dysuria, Hematuria, Frequency Musculoskeletal: Reports: Swelling - LLE, Extremity Pain - RLE. Denies: Back pain Skin: Denies: Rash, Wounds Neurological: Denies: Headache, Weakness, Numbness Physical Exam Vital Signs/Narrative: Vital Signs Temp Pulse Resp BP Pulse Ox 02/24/18 23:20 86 16 179/102 H 94 02/24/18 23:11 97.4 F L 87 18 163/89 H 94 Inital Vital Signs reviewed: Yes General: Well nourished, Well developed, - - NAD, but appears uncomfortable Head: Normocephalic, Atraumatic Eyes: Perrl, EOMI ENT: Moist mucous membranes, No rhinorrhea Neck: Supple, Nontender Cardiovascular: Regular rate, Regular rhythm, No murmurs Respiratory: No distress, CTA bilaterally, Chest nontender Abdomen: Soft, Nontender, Nondistended, Normal bowel sounds Back: Nontender, Normal Inspection Extremities: Nontender, Edema - LLE 1+ Skin: Normal color, No rash Neurological: Alert, Oriented x3, Cranial nerves II-XII grossly intact, Normal Strength, Normal Sensation Psychological: Normal affect Diagnostic/Tx/Re-eval Impressions Chest X-Ray 02/24/18 23:34 IMPRESSION: Borderline cardiomegaly and mild pulmonary congestion. Electronically Signed: Kalli Alejandro MD at 0:22 EST , Service support , 02/24/18 23:34 Chest 1 View (Portable) [RAD] Stat Laboratory Results 02/24/18 02/24/18 02/24/18 23:50 23:50 23:50 WBC 8.1 RBC 4.75 Hgb 14.0 Hct 42.1 MCV 88.6 MCH 29.5 MCHC 33.3 RDW 15.3 H RDW Differential 50.0 H Plt Count 180 MPV 9.9 Immature Gran % (Auto) 0.500 Neut % (Auto) 68.3 Lymph % (Auto) 22.5 [place] % (Auto) 6.1 Eos % (Auto) 2.5 Baso % (Auto) 0.1 Absolute Neuts (auto) 5.5 Absolute Lymphs (auto) 1.81 Total Counted Not Reportable PT 24.0 H INR 2.1 Sodium 139 Potassium 4.1 Chloride 104 Carbon Dioxide 28.0 Anion Gap 7 BUN 21 H Creatinine 1.90 H Estim Creat Clear Calc 38.50 Est GFR (MDRD) Af Amer 46 L Est GFR (MDRD) Non-Af 38 L BUN/Creatinine Ratio 11.1 Glucose 300 H Calcium 8.6 Troponin I 0.020 - Rhythm Strip Rhythm Strip: Sinus Rhythm Rate: 80 Ectopy: None - EKG Initial EKG Interpretation: Sinus Rhythm, No Acute Injury Pattern, - - nml axis. normal EKG. Prior: Unchanged - Medical Decision Making Labs show renal insufficiency and a troponin that is well within normal limits at 0.02. His EKG is normal. However, his symptoms are concerning, and completely resolved with a set of 3 nitroglycerin sublingual's. Paste is placed on his chest. His chest x-ray is unremarkable with narrow mediastinum. I discussed with cardiology Dr. Coker, who agrees with admission and evaluation tomorrow. Discussed with hospitalist. Patient is stable, will admit to [facility]. ED Disposition - Plan for ED Patient: Disposition: Acute Care Hospital [facility] Chief Complaint: Chest Pain Diagnosis: Chest pain, unspecified, Renal insufficiency Referrals: Andrew Gomez III, MD [Primary Care Provider] -
[2018-02-24 23:54] VITALS: BP 118/74; PULSE 83
[2018-02-24 23:55] VITALS: BP 118/74; PULSE 84; RESP 16; O2SAT 94
[2018-02-25] VITALS (20 sets, daily range): BP systolic 122–142; BP diastolic 71–104; PULSE 64–88; RESP 16–18; TEMP 36.3–36.9; O2SAT 95–100; BMI 34.8; BMI 34.9
[2018-02-25 00:07] LABS: International Normalized Ratio 2.1
[2018-02-25 00:17] LABS: Absolute Lymphocyte Count 1.81 X10^3/ul (0.83-4.51); Absolute Neutrophil Count 5.5 X10^3/uL (2.0-7.7); Basophil# 0.01 X10^3/uL; Basophil% 0.1 % (0-1); Eosinophils% 2.5 % (0-5); Hematocrit 42.1 % (40-54); Lymphocyte # 1.81 X10^3/ul (4.0); Lymphocyte % 22.5 % (19-41); Mean Corp Hgb Conc 33.3 g/gl (32-36); Mean Corpuscular Hgb 29.5 pg (27.0-32.0); Mean Corpuscular Volume 88.6 fL (80-94); Mean Platelet Vol. 9.9 fl (6.2-12.0); Monocyte# 0.49 X10^3/uL; Monocyte% 6.1 % (0-10); Neutrophil % 68.3 % (47-70); Platelet Count 180 K/mm3 (150-450); RBC Distribution Width CV 15.3 % (11.6-14.6); Red Blood Count 4.75 M/mm3 (4.6-6.2); White Blood Count 8.1 K/mm3 (4.4-11.0)
[2018-02-25 00:20] LABS: Anion Gap 7 (5-15); BUN 21 mg/dL (7-18); BUN/Creat Ratio 11.1 RATIO (10-20); Calcium,Total 8.6 mg/dL (8.5-10.1); Chloride 104 mmol/L (98-107); EST Glomerular Filtration Rate 38 mL/min (>60); Est Glom Filt Rate - Afr Amer 46 mL/min (>60); Glucose 300 mg/dL (74-106); Potassium 4.1 mmol/L (3.5-5.1); Sodium Level 139 mmol/L (136-145)
[2018-02-25 00:22] LABS: POSITIVE COUNT NO; POSITIVE DIFFERENTIAL NO; POSITIVE MORPHOLOGY NO
[2018-02-25] MEDS: Nitroglycerin Oint 1 INCH PACKET TRANSDERM. ×4 (01:38→18:08)
--- NOTE | 2018-02-25 01:42 | PCM.HP.STD ---
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 fib; type 2 diabetes; PAD; GERD; hyperlipidemia; CAD status post stent and CABG who presented with 2 days history of progressively worsening continues substernal chest pain at rest which increases with exertion. His pain radiates to his left shoulder. 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 He went to work and his co-employees saw that he looked miserable due to his facial expression and advised him to go to the emergency department. He describes his pain as pressure-like and aching. His pain increases with taking a deep breath. At emergency department he was given nitroglycerin sublingual which helped with his pain. Subsequently nitroglycerin paste was placed on his chest. Patient denies any associated nausea, vomiting or diaphoresis. As stated above he had a 5 vessel CABG on September 21 of this year. He has 4 stents in his coronary vessels. Three stents were placed in 2008. And one stent was placed in 2014. At emergency department Dr. Coker was consulted. Per emergency department doctor Dr. Coker will consider sending patient to cardiac cath. Past Medical History Past Medical History (Chronic Problems): Chronic Problems (Last Reviewed 02/25/18 @ 08:18 by Boni Renae MD) Presence of stent in coronary artery (Chronic) PCI/stent to prox/distal RCA 2008; PCI/Stent to mid RCA and PCi of the PDA 04/20/15 Atherosclerotic heart disease of [place] coronary artery without angina pectoris (Chronic) PCI/stent to prox/distal RCA 2008; PCI/Stent to mid RCA and PCi of the PDA 04/20/15; CABG x5- MANCERA to LAD, SVG to Ramus, SVG to PDA, SVG to PLV, SVG to OM, PV isolation, left atrial appendage excision 09/21/17 Paroxysmal atrial fibrillation (Chronic) H/O coronary artery bypass surgery (Chronic 09/21/17) CABG x5- MANCERA to LAD, SVG to Ramus, SVG to PDA, SVG to PLV, SVG to OM, PV isolation, left atrial appendage excision 09/21/17 Type 2 diabetes mellitus (Chronic) Hypertension (Chronic) PAD (peripheral artery disease) (Chronic) PCI/Stent L fem artery 11/26/07; PCI Rt fem 02/17/08; PCI Left pop and sup femoral artery 03/09/10; PCI Rt pop and Rt SFA 05/11/10; PCI bilat LE arteriogram w/angioplasty 10/03/10; PCI/LLE 07/17/11 HLD (hyperlipidemia) (Chronic) Medical History: Medical History (Last Reviewed 02/25/18 @ 08:18 by Boni Renae MD) Atherosclerotic heart disease of [place] coronary artery without angina pectoris (Chronic) I25.10 PCI/stent to prox/distal RCA 2008; PCI/Stent to mid RCA and PCi of the PDA 04/20/15; CABG x5- MANCERA to LAD, SVG to Ramus, SVG to PDA, SVG to PLV, SVG to OM, PV isolation, left atrial appendage excision 09/21/17 Paroxysmal atrial fibrillation (Chronic) I48.0 Bradycardia (Acute) R00.1 Type 2 diabetes mellitus (Chronic) E11.9 Hypertension (Chronic) I10 PAD (peripheral artery disease) (Chronic) I73.9 PCI/Stent L fem artery 11/26/07; PCI Rt fem 02/17/08; PCI Left pop and sup femoral artery 03/09/10; PCI Rt pop and Rt SFA 05/11/10; PCI bilat LE arteriogram w/angioplasty 10/03/10; PCI/LLE 07/17/11 HLD (hyperlipidemia) (Chronic) E78.5 Acute renal failure (Acute) GERD (gastroesophageal reflux disease) K21.9 Raynauds disease I73.00 Allergies adhesive Allergy (Verified 02/24/18 23:11) Unknown lisinopril Allergy (Verified 02/24/18 23:11) Unknown Penicillins Allergy (Verified 02/24/18 23:11) Unknown Home Medications: Ambulatory Orders Medication Instructions Recorded Clopidogrel Bisulfate [Plavix] 75 mg PO DAILY 02/07/13 Nitroglycerin [Nitrostat] 0.4 mg SUBLINGUAL Q5M PRN 02/07/13 Cholecalciferol (Vitamin D3) 5,000 unit PO DAILY 01/16/14 [Vitamin D] Atorvastatin Calcium [Lipitor] 80 mg PO QHS 07/05/15 Dulaglutide [Trulicity] 1.5 mg SQ QWEEK 09/09/17 Magnesium Oxide 500 mg PO DAILY 09/09/17 Insulin Glargine,Hum.rec.anlog 30 unit SQ QHS 09/30/17 [Lantus] Warfarin [Coumadin (PBKC)] 2.5 mg PO DAILY 09/30/17 hydrocodone 5 mg-acetaminophen 325 1 tab PO Q12H PRN tab 10/31/17 mg tablet lorazepam 0.5 mg tablet 0.5 mg PO BID PRN tab 10/31/17 carvedilol 25 mg tablet 12.5 mg PO BID tab 02/01/18 Warfarin Sodium 5 mg PO HOLDER 02/25/18 Surgical History: Surgical History (Last Reviewed 02/25/18 @ 08:18 by Boni Renae MD) Presence of stent in coronary artery (Chronic) Z95.5 PCI/stent to prox/distal RCA 2008; PCI/Stent to mid RCA and PCi of the PDA 04/20/15 H/O coronary artery bypass surgery (Chronic) Onset Date: 09/21/17 Z95.1 CABG x5- MANCERA to LAD, SVG to Ramus, SVG to PDA, SVG to PLV, SVG to OM, PV isolation, left atrial appendage excision 09/21/17 History of angioplasty of peripheral vessel Z98.62 PCI/Stent L fem artery 11/26/07; PCI Rt fem 02/17/08; PCI Left pop and sup femoral artery 03/09/10; PCI Rt pop and Rt SFA 05/11/10; PCI bilat LE arteriogram w/angioplasty 10/03/10; PCI/LLE 07/17/11 Postsurgical percutaneous transluminal coronary angioplasty (PTCA) status Z98.61 PCI/stent to prox/distal RCA 2008; PCI/Stent to mid RCA and PCi of the PDA 04/20/15 History of inguinal hernia repair Z98.890, Z87.19 Surgical History: angioplasty - w/ cardiac stent x 4, coronary bypass surgery, - - right inguinal hernia, s/p iliac stents bilat Lives: Spouse/ Significant Other Smoking Status: Never smoker - *Family History Paternal Family History: Family History (Last Reviewed 02/25/18 @ 08:19 by Boni Renae MD) Father Heart disease Grandmother Hypertension Grandfather Heart disease Myocardial infarction History Items: Heart Disease Maternal Family History: Family History (Last Reviewed 02/25/18 @ 08:19 by Boni Renae MD) Father Heart disease Grandmother Hypertension Grandfather Heart disease Myocardial infarction History Items: Unknown Review of Systems Constitutional: Denies: Chills, Fever, Weight Change HEENT: Denies: Head Aches, Sinus Congestion, Sinus Drainage Cardiovascular: Reports: Chest Pain. Denies: Palpitations Respiratory: Denies: Cough, Shortness of breath at rest, Sputum production Gastrointestinal: Denies: Abdominal Pain, Nausea, Vomiting Genitourinary: Denies: Dysuria Musculoskeletal: Reports: Shoulder Pain - Left. Denies: Joint Pain, Joint Tenderness Skin: Denies: Rash, Wounds Neurological: Denies: Numbness, Tingling, Focal weakness Psychiatric: Denies: Anxiety, Depression, Homicidal Ideations, Suicidal Ideations Hematologic/ Lymphatic: Denies: Easy Bruising, Easy Bleeding VTE Information - Inpt Only VTE Present on Admission: No VTE Mechan Device Prophylaxis: None VTE Pharm Prophylaxis ordered?: Yes Patient Problems: Active and Suspected Problems (Last Reviewed 02/25/18 @ 08:18 by Boni Renae MD) Chest pain, unspecified (Acute) Renal insufficiency (Acute) - Physical Exam General: Alert, Oriented x3, Cooperative HEENT: Atraumatic, PERRLA, EOMI, Normocephalic Neck: Supple, No JVD, Negative Carotid Bruits Lungs: Clear to auscultation, Normal air movement Cardiovascular: Regular rate, No murmurs Abdomen: Bowel Sounds Present, Soft, Non Tender Extremities: No edema, Capillary Refill Less than 3 Seconds Skin: No rashes, No breakdown Musculoskeletal: No Tenderness to Palpation of Joints or Extremities Neurological: Cranial nerves II-XII grossly intact Psych/Mental Status: Normal Affect, Appropriate Vital Signs Temp Pulse Resp BP Pulse Ox 97.4 F L 72 16 134/84 H 96 02/24/18 23:11 02/25/18 01:38 02/25/18 01:00 02/25/18 01:38 02/25/18 01:00 Oxygen Flow Rate (L/min) 2 Oxygen Delivery Method Nasal Cannula Weight: 105.7 kg Body Mass Index (BMI) 35.4 Laboratory Tests Past 24 Hrs 02/24/18 02/24/18 02/24/18 23:50 23:50 23:50 WBC 8.1 RBC 4.75 Hgb 14.0 Hct 42.1 MCV 88.6 MCH 29.5 MCHC 33.3 RDW 15.3 H RDW Differential 50.0 H Plt Count 180 MPV 9.9 Immature Gran % (Auto) 0.500 Neut % (Auto) 68.3 Lymph % (Auto) 22.5 [place] % (Auto) 6.1 Eos % (Auto) 2.5 Baso % (Auto) 0.1 Absolute Neuts (auto) 5.5 Absolute Lymphs (auto) 1.81 Total Counted Not Reportable PT 24.0 H INR 2.1 Sodium 139 Potassium 4.1 Chloride 104 Carbon Dioxide 28.0 Anion Gap 7 BUN 21 H Creatinine 1.90 H Estim Creat Clear Calc 38.50 Est GFR (MDRD) Af Amer 46 L Est GFR (MDRD) Non-Af 38 L BUN/Creatinine Ratio 11.1 Glucose 300 H Calcium 8.6 Troponin I 0.020 Assessment/Plan All Active Problems (Last Reviewed 02/25/18 @ 08:18 by Boni Renae MD) Chest pain, unspecified (Acute) Renal insufficiency (Acute) Acute renal failure (Acute) The patient is a 62 year old M with a significant history of hypertension; paroxysmal A. fib; type 2 diabetes; PAD; GERD; hyperlipidemia; CAD status post stent and CABG who presented with 2 days history of progressively worsening continues substernal chest pain at rest which increases with exertion and found to have elevated troponins Non-ST elevation [place] Admit to a monitored bed on PCU CXR independently reviewed confirms mild primary congestion EKG independently reveiwed confirms sinus rhythm Patient takes Coumadin and Plavix. Plavix continued. Of note patient is not on home aspirin. And aspirin has not been started at this time. Next Coumadin will be due 5 PM today 02/25/2018. Hold Coumadin for now and make further determination after cath. Nitroglycerin paste placed Serial cardiac enzymes shows non-ST elevation [place] Stat EKG as needed for chest pain Lipid panel ordered. Cardiology consult. CARMINA over CKD On admission his creatinine was 1.90. His baseline creatinine is about 1.4. IV hydration. Cautious use of IV hydration as patient has primary congestion on x-ray. Trend BMP Diabetes mellitus BMP on admission showed blood glucose of 300. Four units of subcutaneous lispro was ordered. However Accu-Chek showed blood glucose of 126 so lispro was not given. Patient takes 30 units of Lantus at home and dulaglutide every week on Saturdays. We will hold Lantus at this time. Patient n.p.o. for likely cardiac cath. Correction scale insulin ordered. PAD with stents Continue Plavix. Hold Coumadin until after cath. Paroxysmal A. fib Hold Coumadin until after cath. Repeat INR in a.m. Hypertension Patient reports that he is not on home medication and his blood pressure is well controlled at this time. On admission his blood pressure is slightly above goal. Trend blood pressures. DVT prophylaxis INR therapeutic at this time. Last dose of Coumadin was yesterday. Anticoagulation determination to be made after cath. SCD ordered. Code Visit OBSV E&M: [id number] Initial observation care L3
--- NOTE | 2018-02-25 02:31 | EKG12_ITS ---
Test Reason : CP Blood Pressure : / mmHG Vent. Rate : 067 BPM Atrial Rate : 067 BPM P-R Int : 180 ms QRS Dur : 092 ms QT Int : 406 ms P-R-T Axes : 025 038 046 degrees QTc Int : 429 ms Normal sinus rhythm Normal ECG Confirmed by RICHARD JAEGER, TEX ([id number]), assignment desk editor CHRISTINE MILLER ([id number]) on 02/28/2018 2:10:39 PM Referred By: Tex Ramos Confirmed By:TEX RAMOS MD
[2018-02-25 05:26] LABS: Bedside Glucose 126 mg/dL (70-110)
[2018-02-25] MEDS: Carvedilol 12.5 MG Tablet PO ×2 (06:21→21:47)
[2018-02-25 06:47] LABS: International Normalized Ratio 2.2; Prothrombin Time (Protime)PT. 24.4 SECONDS (11.7-14.9)
[2018-02-25 07:03] LABS: ALB/GLOB Ratio 0.9 RATIO (0.9-2.4); AST(SGOT) 30 U/L (15-37); Alanine Aminotransfer ALT/SGPT 33 U/L (16-61); Albumin, Serum 3.6 g/dL (3.2-5.0); Alkaline Phosphatase 66 U/L (45-117); Anion Gap 9 (5-15); BUN 19 mg/dL (7-18); BUN/Creat Ratio 12.4 RATIO (10-20); Calcium,Total 9.7 mg/dL (8.5-10.1); Chloride 104 mmol/L (98-107); Creatinine, Serum 1.53 mg/dL (0.70-1.30); EST Glomerular Filtration Rate 49 mL/min (>60); Est Glom Filt Rate - Afr Amer 59 mL/min (>60); Estimated Creatinine Clearance 47.81 ml/min; Glucose 125 mg/dL (74-106); Potassium 4.4 mmol/L (3.5-5.1); Protein, Total 7.6 g/dL (6.4-8.2); Sodium Level 142 mmol/L (136-145)
[2018-02-25 07:05] LABS: Partial Thromboplast Time 37.6 Seconds (24.1-36.2)
[2018-02-25 07:13] LABS: Cholesterol 153 mg/dL (200); High Density Lipoprotein 34 mg/dL; Triglycerides 309 mg/dL; Very Low Density Lipoprotein 62 mg/dL (5-40)
--- NOTE | 2018-02-25 08:58 | CON.PCM_ITS ---
Problem List (1) NSTEMI (non-ST elevated myocardial infarction) Status: Acute (2) CAD (coronary artery disease) Status: Chronic (3) Presence of stent in coronary artery Status: Chronic Comment: PCI/stent to prox/distal RCA 2008; PCI/Stent to mid RCA and PCi of the PDA 04/20/15 (4) H/O coronary artery bypass surgery Status: Chronic Comment: CABG x5- MANCERA to LAD, SVG to Ramus, SVG to PDA, SVG to PLV, SVG to OM, PV isolation, left atrial appendage excision 09/21/17 (5) Paroxysmal atrial fibrillation Status: Chronic (6) HLD (hyperlipidemia) Status: Chronic Qualifiers: Hyperlipidemia type: unspecified Qualified Code(s): E78.5 - Hyperlipidemia, unspecified (7) Hypertension Status: Chronic Qualifiers: Hypertension type: essential hypertension Qualified Code(s): I10 - Essential (primary) hypertension (8) Type 2 diabetes mellitus Status: Chronic Qualifiers: Diabetes mellitus intermediate designer insulin use: unspecified intermediate designer insulin use status Diabetes mellitus complication status: with unspecified complications Qualified Code(s): E11.8 - Type 2 diabetes mellitus with unspecified complications (9) Renal insufficiency Status: Chronic Reason for Consult Date of Consultation: 02/25/18 History of Present Illness: The patient is a 62 year old white male with a past medical history of CAD, PCI, CABG, paroxysmal atrial fibrillation, superimposed on hyperlipidemia, hypertension, and diabetes mellitus who is referred for evaluation of chest discomfort concerning for angina pectoris and abnormal cardiac enzymes concerning for a non-ST segment elevation MN. The patient has noted, since his last outpatient cardiovascular visit, that during cardiac rehabilitation he has had exercise related chest discomfort. 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 He had been attributing his chest discomfort concerns to gastrointestinal related discomfort as he states he is oftentimes had chest discomfort with episodes of constipation. 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 He was taken to the emergency department for further evaluation. There he was evaluated and treated with nitroglycerin sublingual x3. His discomfort dissipated. He was subsequently placed in the hospital for further evaluation and care. He is undergone cardiac enzyme studies which have demonstrated abnormal troponin I levels. His ECG demonstrated sinus rhythm with no acute ECG changes x2. He has been referred for further cardiovascular evaluation with consideration to diagnostic cardiac catheterization. In the interim he states when he is not having his discomfort he has been feeling well. He has denied orthopnea or PND. He has trace to mild bilateral ankle edema more so on the left than the right. He has had no near syncope or syncope. [] Past Medical History Allergies/Adverse Reactions: Allergies adhesive Allergy (Verified 02/24/18 23:11) Unknown lisinopril Allergy (Verified 02/24/18 23:11) Unknown Penicillins Allergy (Verified 02/24/18 23:11) Unknown Home Medications: Ambulatory Orders Medication Instructions Recorded Clopidogrel Bisulfate [Plavix] 75 mg PO DAILY 02/07/13 Nitroglycerin [Nitrostat] 0.4 mg SUBLINGUAL Q5M PRN 02/07/13 Cholecalciferol (Vitamin D3) 5,000 unit PO DAILY 01/16/14 [Vitamin D] Atorvastatin Calcium [Lipitor] 80 mg PO QHS 07/05/15 Dulaglutide [Trulicity] 1.5 mg SQ QWEEK 09/09/17 Magnesium Oxide 500 mg PO DAILY 09/09/17 Insulin Glargine,Hum.rec.anlog 30 unit SQ QHS 09/30/17 [Lantus] Warfarin [Coumadin (PBKC)] 2.5 mg PO DAILY 09/30/17 hydrocodone 5 mg-acetaminophen 325 1 tab PO Q12H PRN tab 10/31/17 mg tablet lorazepam 0.5 mg tablet 0.5 mg PO BID PRN tab 10/31/17 carvedilol 25 mg tablet 12.5 mg PO BID tab 02/01/18 Warfarin Sodium 5 mg PO HOLDER 02/25/18 Past Medical History (Chronic Problems): Chronic Problems (Last Reviewed 02/25/18 @ 08:18 by Boni Renae MD) Renal insufficiency (Chronic) CAD (coronary artery disease) (Chronic) Presence of stent in coronary artery (Chronic) PCI/stent to prox/distal RCA 2008; PCI/Stent to mid RCA and PCi of the PDA 04/20/15 Atherosclerotic heart disease of [place] coronary artery without angina pectoris (Chronic) PCI/stent to prox/distal RCA 2008; PCI/Stent to mid RCA and PCi of the PDA 04/20/15; CABG x5- MANCERA to LAD, SVG to Ramus, SVG to PDA, SVG to PLV, SVG to OM, PV isolation, left atrial appendage excision 09/21/17 Paroxysmal atrial fibrillation (Chronic) H/O coronary artery bypass surgery (Chronic 09/21/17) CABG x5- MANCERA to LAD, SVG to Ramus, SVG to PDA, SVG to PLV, SVG to OM, PV isolation, left atrial appendage excision 09/21/17 Type 2 diabetes mellitus (Chronic) Hypertension (Chronic) PAD (peripheral artery disease) (Chronic) PCI/Stent L fem artery 11/26/07; PCI Rt fem 02/17/08; PCI Left pop and sup femoral artery 03/09/10; PCI Rt pop and Rt SFA 05/11/10; PCI bilat LE arteriogram w/angioplasty 10/03/10; PCI/LLE 07/17/11 HLD (hyperlipidemia) (Chronic) Surgical History: angioplasty - w/ cardiac stent x 4, coronary bypass surgery, - - right inguinal hernia, s/p iliac stents bilat - *Family History Paternal Family History: Family History (Last Reviewed 02/25/18 @ 08:19 by Boni Renae MD) Father Heart disease Grandmother Hypertension Grandfather Heart disease Myocardial infarction History Items: Heart Disease Maternal Family History: Family History (Last Reviewed 02/25/18 @ 08:19 by Boni Renae MD) Father Heart disease Grandmother Hypertension Grandfather Heart disease Myocardial infarction History Items: Unknown Lives: Spouse/ Significant Other Smoking Status: Never smoker Alcohol: None Drugs: None Review of Systems - Review of Systems General: Denies: Fever, Night Sweats, Fatigue Cardiovascular: Reports: Chest Discomfort at Rest. Denies: Chest Discomfort, Shortness of Breath, Orthopnea, PND, Peripheral Edema, Palpitations, Lightheadedness, Dizziness, Near Syncope, Syncope Respiratory: Denies: Cough, Sputum Production, Hemoptysis Gastrointestinal: Reports: Indigestion, Constipation. Denies: Hematemesis, Hematochezia, Melena Genitourinary: Denies: Dysuria, Hematuria Skin: Denies: Rash Subjectve: Is a 62-year-old white male who appears to be resting comfortably at the moment in no acute distress. Objective: Vital Signs Temp Pulse Resp BP Pulse Ox 97.7 F L 66 16 132/84 H 97 12/03/18 06:18 02/25/18 06:21 02/25/18 06:18 02/25/18 06:21 02/25/18 06:42 Oxygen Flow Rate (L/min) 2 Oxygen Delivery Method Room Air Weight: 229 lb 4.492 oz Body Mass Index (BMI) 34.8 Intake and Output for Last 24 Hours 02/23/18 02/24/18 02/25/18 23:59 23:59 23:59 Intake Total 0 / 0 Balance 0 / 0 General: Awake, Alert, Oriented x 3, Cooperative, No Acute Distress HEENT: Atraumatic, Normocephalic, PERRL, EOMI Oral: Moist Mucosa Neck: Supple, Good ROM Lungs: Clear to auscultation Cardiovascular: Regular Rhythm, Normal S1, Normal S2 Abdomen: Bowel Sounds Present, Soft, Non Tender Extremities: Trace LLE Edema Neurological: No Focal Motor or Sensory Deficit Psych/Mental Status: Appropriate 02/24/18 23:50: WBC 8.1, RBC 4.75, Hgb 14.0, Hct 42.1, MCV 88.6, MCH 29.5, MCHC 33.3, RDW 15.3 H, RDW Differential 50.0 H, Plt Count 180, MPV 9.9, Immature Gran % (Auto) 0.500, Neut % (Auto) 68.3, Lymph % (Auto) 22.5, [place] % (Auto) 6.1, Eos % (Auto) 2.5, Baso % (Auto) 0.1, Absolute Neuts (auto) 5.5, Total Counted Not Reportable 02/24/18 23:50: Sodium 139, Potassium 4.1, Chloride 104, Carbon Dioxide 28.0, Anion Gap 7, BUN 21 H, Creatinine 1.90 H, Est GFR (MDRD) Af Amer 46 L, Est GFR (MDRD) Non-Af 38 L, BUN/Creatinine Ratio 11.1, Glucose 300 H, Calcium 8.6, Troponin I 0.020 02/24/18 23:50: PT 24.0 H, INR 2.1 02/25/18 03:50: Troponin I 1.010 H* 02/25/18 06:00: Troponin I 1.680 H* 02/25/18 06:00: Sodium Cancelled, Potassium Cancelled, Chloride Cancelled, Carbon Dioxide Cancelled, Anion Gap Cancelled, BUN Cancelled, Creatinine Cancelled, Est GFR (MDRD) Af Amer Cancelled, Est GFR (MDRD) Non-Af Cancelled, BUN/Creatinine Ratio Cancelled, Glucose Cancelled, Calcium Cancelled, Triglycerides 309 H, Cholesterol 153, LDL Cholesterol 57, VLDL Cholesterol 62 H, HDL Cholesterol 34 L 02/25/18 06:00: PT 24.4 H, INR 2.2 02/25/18 06:00: APTT 37.6 H 02/25/18 06:00: Sodium 142, Potassium 4.4, Chloride 104, Carbon Dioxide 29.0, Anion Gap 9, BUN 19 H, Creatinine 1.53 H, Est GFR (MDRD) Af Amer 59 L, Est GFR (MDRD) Non-Af 49 L, BUN/Creatinine Ratio 12.4, Glucose 125 H, Calcium 9.7, Total Bilirubin 0.80 Rhythm: Sinus rhythm EKG: Sinus rhythm; no acute ECG changes ECHO: 09/10/2017: Left ventricle normal with an LVEF of 60% Stress Test: 09/10/2017: Pharmacologic myocardial perfusion stress test: Considered abnormal with evidence of inferolateral ischemia Cardiac Cath: 09/10/2017: Left ventricle considered normal with an LVEF of 65%; left main coronary artery with mild calcification and mild luminal irregularity; LAD with mild calcification and proximal 50% stenosis; mid LAD with 85% stenosis; LCx with mild calcification with a second OM demonstrating 85% stenosis; RCA being previously stented with in-stent minimal luminal irregularities with the right PDA having 85% stenosis in the right AV segment being subtotally occluded; left to right collateral flow CT Surgery: 09/21/2017: [facility]: MANCERA to the LAD, SVG to the OM, SVG to the intermediate ramus, SVG to the PDA/PL, and a left atrial appendage excision CXR: Preliminary evaluation: No acute cardiopulmonary disease process; post open heart surgery changes: Please see official report Assessment/Plan 1. Non-ST segment elevation MN The patient presents with symptoms concerning for angina pectoris. He has had objective findings with abnormal cardiac enzymes. His clinical scenario and objective findings are concerning for an acute non-ST segment elevation MN. He is being followed by cardiac rhythm, cardiac enzymes, and ECG. He will continue medical management. He is being referred for further evaluation with diagnostic cardiac catheterization once his INR level has decreased. 2. CAD status post PCI status post CABG The patient has a history of extensive underlying cardiovascular disease as previously noted. Again there are concerns based on his recent symptoms and his objective findings with abnormal troponin I levels of an acute non-ST segment elevation MN. The plan is for reevaluation with diagnostic cardiac catheterization once his INR level has improved. 4. Hyperlipidemia The patient will continue lipid-lowering therapy as deemed appropriate. 5. Hypertension The patient will continue antihypertensive therapy as deemed appropriate. 5. Diabetes mellitus The patient will continue under the care of internal medicine. 6. Renal insufficiency The patient's creatinine level was elevated upon evaluation in the emergency department. It has improved. He will continue to be followed with respect to his renal function with respect to upcoming invasive evaluation requiring IV contrast.
[2018-02-25] MEDS: Magnesium Oxide 400 MG Tablet PO (09:15)
[2018-02-25] MEDS: Phytonadione (Vit K) 10 MG/ML Ampul 5 MG PO (09:16)
[2018-02-25] MEDS: 0.9% Normal Saline 1,000 ML 50 ML IV (09:22)
[2018-02-25] MEDS: 0.9% NaCl Peripheral Flush Adult/Peds IV (09:23)
[2018-02-25 11:31] LABS: Bedside Glucose 260 mg/dL (70-110)
[2018-02-25] MEDS: Insulin Lispro 100 UNIT/ML INSULN.PEN SQ (11:51)
[2018-02-25] MEDS: Acetaminophen 325 MG Tablet 650 MG PO (12:28)
--- NOTE | 2018-02-25 13:20 | ECHOCS_ITS ---
Reason For Study: CAD,ASHD, NSTEMI Procedure This was a 2D Doppler, Color Flow transthoracic echocardiogram. The study was technically difficult. Contrast injection was performed. Exam performed in department. Left Ventricle Normal LV size. Segmental dysfunction with preserved ejection fraction (see wall motion). The estimated ejection fraction is 60 %. Post operative septal motion. Diastolic function is indeterminate. Infero-Basal: Hypokinetic. Basal inferoseptal: Hypokinetic. Mid-Anterior : Hypokinetic. Mid-Inferior: Hypokinetic. Mid-inferoseptal : Hypokinetic. Mid-anteroseptal : Hypokinetic. Right Ventricle Normal RV size. Normal systolic function. Atria Normal left atrium. Normal right atrium. No doppler evidence for ASD. Mitral Valve There is no mitral annular calcification. Normal mitral valve. Trivial mitral valve insufficiency. Tricuspid Valve Normal tricuspid valve. Trivial tricuspid valve insufficiency. Unable to estimate RV systolic pressure/pulmonary artery pressure due to technically difficult study. Aortic Valve Trisinus/trileaflet aortic valve. Mild focal aortic valve calcification. Pulmonic Valve The pulmonic valve is not well visualized. Great Vessels Normal sized aortic root. Pericardium/Pleural No pericardial effusion. Medication Diluted definity 3.0ml given slow IV push to enhance endocardial definition. MMode/2D Measurements & Calculations LVIDd: 4.6 cm IVSd: 0.92 cm Ao root diam: 3.5 cm LVIDs: 3.3 cm LVPWd: 0.89 cm RVDd: 3.4 cm FS: 28.5 % LAV(MOD-bp): 43.7 ml LA A4 area: 13.4 cm2 LA dimension(2D): 3.7 cm LAV(MOD-bp) Indexed: 20.2 ml/m2 LAV(MOD-sp2): 46.5 ml LAV(MOD-sp4): 34.5 ml RA A4 area: 12.9 cm2 Time Measurements MV dec time: 0.15 sec Doppler Measurements & Calculations MV E max ozzy: 83.1 cm/sec Lat Peak E' Ozzy: 9.8 cm/sec Med Peak E' Ozzy: 4.8 cm/sec MV A max ozzy: 71.0 cm/sec E/E' lat: 8.5 E/E' med: 17.4 MV E/A: 1.2 Ao V2 max: 130.0 cm/sec LV V1 max: 93.2 cm/sec PA V2 max: 72.3 cm/sec Ao max P.8 mmHg LV V1 max P.5 mmHg Interpretation Summary The study was technically difficult. Contrast injection was performed. Segmental dysfunction with preserved ejection fraction (see wall motion). The estimated ejection fraction is 60 %. Post operative septal motion. Trivial mitral valve insufficiency. Trivial tricuspid valve insufficiency. Mild focal aortic valve calcification. Unable to estimate RV systolic pressure/pulmonary artery pressure due to technically difficult study. Diastolic function is indeterminate. Ordering Physician: Valery Khanna Referring Physician: MIROSLAVA Gomez M.D. Performed By: Marilee Mahajan RDCS, RVT
[2018-02-25 13:41] LABS: Bacteria 0 SEEN /hpf (None Seen); Mucous, Urine 0 SEEN /hpf (<or=2+); Red Blood Cells-Urine 0 SEEN /hpf (0-5); White Blood Cells 0 SEEN /hpf (0-5)
[2018-02-25 13:42] LABS: Color, Urine Yellow (Yellow); Glucose, Dipstick 100 mg/dl (Normal); Ketone-Dipstick Negative (Negative); Leukocyte Esterase-Dipstick Negative /ul (Negative); Nitrite-Dipstick Negative (Negative); Occult Blood-Urine Negative /ul (Negative); Protein-Dipstick 15 mg/dl (Negative); Urine Bilirubin Dipstick Negative (Negative); Urine Clarity Clear (Clear); Urine Urobilinogen Normal (Normal); Urine pH 6.5 (5.0 - 8.0)
[2018-02-25 13:49] LABS: Squamous Epithelial Cells - UA 0-5 SEEN /hpf (0-5)
[2018-02-25 16:34] LABS: International Normalized Ratio 2.2; Prothrombin Time (Protime)PT. 24.6 SECONDS (11.7-14.9)
[2018-02-25 16:50] LABS: Bedside Glucose 140 mg/dL (70-110)
--- NOTE | 2018-02-25 16:52 | EKG12_ITS ---
Test Reason : Blood Pressure : / mmHG Vent. Rate : 061 BPM Atrial Rate : 061 BPM P-R Int : 172 ms QRS Dur : 090 ms QT Int : 402 ms P-R-T Axes : 027 025 058 degrees QTc Int : 404 ms Normal sinus rhythm Normal ECG Confirmed by RICHARD JAEGER, BASIM ([id number]), order editor CHRISTINE MILLER ([id number] on 02/28/2018 2:15:01 PM Referred By: Confirmed By:BASIM RAMOS MD
--- NOTE | 2018-02-25 17:02 | PCM.PN.HOSP ---
Patient Problems: Active and Suspected Problems (Last Reviewed 02/25/18 @ 08:18 by Boni Renae MD) Chest pain, unspecified (Acute) NSTEMI (non-ST elevated myocardial infarction) (Acute) Subjective: Patient notes resolution of chest discomfort and chest pressure since initiation of nitroglycerin drip. He does complain of a headache with minimal improvement with Tylenol and requesting additional agent. Discussed plan of care with patient given INR level with planned repeat a.m. INR following vitamin K administration per cardiology with transition to cardiac catheterization if appropriate. Patient denies fevers, chills, nausea, emesis, abdominal pain, dyspnea. Objective: Physical Examination: General: awake, alert, oriented x 3 and cooperative, seated upright in bedside chair, in no apparent distress. Skin: normal color, turgor, no icterus, cyanosis. HEENT: AT/NC, EOMI, PERRLA, MMM. Lungs: CTA bilaterally, moderate effort, mild decrease BL bases, no rales, ronchi or wheezing. Heart: Regular rate and rhythm; no gallop, rub audible. Abdomen: soft, obese, NTTP, ND, normal BS, no HSM. Extremities: no cyanosis, clubbing, mild BL LE ankle edema, difficulty palpating BL distal peripheral pulses, chronic w/ notable PAD. Neurological: patient awake, alert, oriented x 3; cognitive function intact; pupils equally reactive to light and accomodation; cranial nerves II-XII grossly normal, moving all 4 extremities, no focal deficits, strength moderately globally decreased secondary to acute presentation. Psychiatric: affect appears normal, no acute evidence of depressive or anxiety feelings. Vitals/I&O's: Vital Signs Temp Pulse Resp BP Pulse Ox 97.4 F L 73 18 127/76 H 99 02/25/18 16:35 02/25/18 16:35 02/25/18 16:35 02/25/18 16:35 02/25/18 16:35 Oxygen Flow Rate (L/min) 2 Oxygen Delivery Method Room Air Weight: 229 lb 4.492 oz Body Mass Index (BMI) 34.8 Intake and Output for Last 24 Hours 02/23/18 02/24/18 02/25/18 23:59 23:59 23:59 Intake Total 950 / 950 Balance 950 / 950 Laboratory Results 02/24/18 23:50: WBC 8.1, RBC 4.75, Hgb 14.0, Hct 42.1, MCV 88.6, MCH 29.5, MCHC 33.3, RDW 15.3 H, RDW Differential 50.0 H, Plt Count 180, MPV 9.9, Immature Gran % (Auto) 0.500, Neut % (Auto) 68.3, Lymph % (Auto) 22.5, [place] % (Auto) 6.1, Eos % (Auto) 2.5, Baso % (Auto) 0.1, Absolute Neuts (auto) 5.5, Absolute Lymphs (auto) 1.81, Total Counted Not Reportable 02/24/18 23:50: Sodium 139, Potassium 4.1, Chloride 104, Carbon Dioxide 28.0, Anion Gap 7, BUN 21 H, Creatinine 1.90 H, Estim Creat Clear Calc 38.50, Est GFR (MDRD) Af Amer 46 L, Est GFR (MDRD) Non-Af 38 L, BUN/Creatinine Ratio 11.1, Glucose 300 H, Calcium 8.6, Troponin I 0.020 02/24/18 23:50: PT 24.0 H, INR 2.1 02/25/18 03:50: Troponin I 1.010 H* 02/25/18 05:16: POC Glucose 126 H 02/25/18 06:00: Troponin I 1.680 H* 02/25/18 06:00: Sodium Cancelled, Potassium Cancelled, Chloride Cancelled, Carbon Dioxide Cancelled, Anion Gap Cancelled, BUN Cancelled, Creatinine Cancelled, Est GFR (MDRD) Af Amer Cancelled, Est GFR (MDRD) Non-Af Cancelled, BUN/Creatinine Ratio Cancelled, Glucose Cancelled, Calcium Cancelled, Triglycerides 309 H, Cholesterol 153, LDL Cholesterol 57, VLDL Cholesterol 62 H, HDL Cholesterol 34 L 02/25/18 06:00: PT 24.4 H, INR 2.2 02/25/18 06:00: APTT 37.6 H 02/25/18 06:00: Sodium 142, Potassium 4.4, Chloride 104, Carbon Dioxide 29.0, Anion Gap 9, BUN 19 H, Creatinine 1.53 H, Estim Creat Clear Calc 47.81, Est GFR (MDRD) Af Amer 59 L, Est GFR (MDRD) Non-Af 49 L, BUN/Creatinine Ratio 12.4, Glucose 125 H, Calcium 9.7, Total Bilirubin 0.80, AST 30, ALT 33, Alkaline Phosphatase 66, Total Protein 7.6, Albumin 3.6, Globulin 4.0, Albumin/Globulin Ratio 0.9 02/25/18 08:55: Troponin I 1.380 H* 02/25/18 11:19: POC Glucose 260 H 02/25/18 13:30: Urine Color Yellow, Urine Clarity Clear, Urine pH 6.5, Ur Specific [place] 1.020, Urine Protein 15 H, Urine Glucose (UA) 100 H, Urine Ketones Negative, Urine Occult Blood Negative, Urine Nitrite Negative, Urine Bilirubin Negative, Urine Urobilinogen Normal, Ur Leukocyte Esterase Negative, Urine RBC 0 SEEN, Urine WBC 0 SEEN, Ur Squamous Epith Cells 0-5 SEEN, Urine Bacteria 0 SEEN, Urine Mucus 0 SEEN 02/25/18 15:55: PT 24.6 H, INR 2.2 02/25/18 16:26: POC Glucose 140 H Current Medications Acetaminophen (Tylenol) 650 mg PO Q6H PRN PRN PRN Reason: Non-cardiac pain (mod-severe) Last Admin: 02/25/18 12:28 Dose: 650 mg Hydrocodone Bitart/Acetaminophen (Carlos 5mg-325mg) 1 tablet PO Q12H PRN PRN PRN Reason: PAIN Atorvastatin Calcium (Lipitor) 80 mg PO QHS [facility] Carvedilol (Coreg) 12.5 mg PO BID [facility] Last Admin: 02/25/18 06:21 Dose: 12.5 mg Cholecalciferol (Vitamin D) 5,000 unit PO DAILY [facility] Last Admin: 02/25/18 09:15 Dose: 5,000 unit Clopidogrel Bisulfate (Plavix) 75 mg PO DAILY [facility] Last Admin: 02/25/18 05:12 Dose: Not Given Dextrose (D50w Syringe) 0 gm IV X1 PRN; Protocol PRN Reason: Hypoglycemia Glucagon () 1 mg IM .X1 PRN PRN Reason: Hypoglycemia Hydralazine HCl (Apresoline Iv) 10 mg IV Q4H PRN PRN PRN Reason: SBP > 160 Sodium Chloride () 1,000 mls @ 50 mls/hr IV .Q20H [facility] Last Admin: 02/25/18 09:22 Dose: 50 mls/hr Insulin Human Lispro (Humalog Kwikpen (Bkc)) 0 unit SQ Q6 IVET; Protocol Last Admin: 02/25/18 11:51 Dose: 2 u Lorazepam (Ativan) 0.5 mg PO BID PRN PRN PRN Reason: ANXIETY Magnesium Hydroxide (Milk Of Magnesia) 30 ml PO DAILY PRN PRN Reason: Constipation Magnesium Oxide (Mag-Ox 400) 400 mg PO DAILY IVET Last Admin: 02/25/18 09:15 Dose: 400 mg Morphine Sulfate () 1 - 2 mg IV Q4H PRN PRN PRN Reason: PAIN Nitroglycerin (Nitrobid) 1 inch TRANSDERM. Q6 IVET Last Admin: 02/25/18 11:48 Dose: 1 inch Sodium Chloride () 5 - 15 ml IV UD PRN PRN Reason: SALINE FLUSH Last Admin: 02/25/18 09:23 Dose: 10 ml Medical Necessity - Tobacco Use Smoking Status: Never smoker Assessment/Plan All Active Problems (Last Reviewed 02/25/18 @ 08:18 by Boni Renae MD) Chest pain, unspecified (Acute) NSTEMI (non-ST elevated myocardial infarction) (Acute) Acute renal failure (Acute) The patient is a 62 y/o M w/ PMHx: PAF, HTN, HLD, CAD s/p CABG x 5, Obesity, GERD, PAF, PAD who presents to the [facility] ED on 02/25/18 with history of onset progressively worsening substernal chest discomfort, worse with exertion with radiation to the left shoulder times 48 hours, pressure-like and aching in sensation. (1) Chest Pain w/ Acute NSTEMI: EKG in ED w/ acute evidence of ischemia, CXR w/ no acute process. Trop elevated, initially 0.020-->1.010-->1.680-->1.380. Admitted to PCU, maintain on a monitored bed, continue serial cardiac enzymes and EKGs. Obtain magnesium level upon admission. Start Heparin drip/therapeutic lovenox. Continue medical management w/ plavix, BB, statin w/ AM FLP obtained as noted. Cardiology consulted, plan for cardiac catheterization. Maintain NPO after midnight. Repeat INR in AM, given vitamin K x 1 today. Plavix, NG, morphine. (2) CAD: s/p recent CABG x 5, MANCERA to LAD, SVG to Ramus, SVG to PDA, SVG to PLV, SVG to OM, PV isolation, left atrial appendage excision 09/21/17 and prior to this PCI w/ stent to prox/distal RCA 2008 and to mid RCA and PCI of the PDA 04/20/15. Patient Coumadin held as noted, continue home plavix, beta-nico and statin. (3) Diabetes mellitus type II: Hold oral home regimen, continue home insulin regimen, ADA diet, accu checks w/ ISS. (4) Obesity: Weight loss and lifestyle changes encouraged. (5) Hyperlipidemia: Continue high-dose statin regimen. AM FLP obtained with triglycerides 309, total cholesterol 153, LDL 57, VLDL 62, HDL 34. (6) Hypertension: Continue home Coreg, currently maintained on nitroglycerin transdermal regimen, PRN hydralazine. (7) PAF: Continue home coreg, INR therapeutic upon presentation, vitamin K administered given planned cardiac catheterization, repeat INR in AM. (8) PAD: s/p PCI to LLE, noted poor vascular supply to RLE; however, given flow per Dr. Gomez not appropriate for stenting in case (9) DVT prophylaxis: SCDs, INR therapeutic upon presentation, vitamin K administered repeat INR in AM.
--- NOTE | 2018-02-25 17:12 | PN_ITS ---
Patient Problems: Active and Suspected Problems (Last Reviewed 02/25/18 @ 08:18 by Boni Renae MD) Chest pain, unspecified (Acute) NSTEMI (non-ST elevated myocardial infarction) (Acute) Subjective: Patient notes resolution of chest discomfort and chest pressure since initiation of nitroglycerin drip. He does complain of a headache with minimal improvement with Tylenol and requesting additional agent. Discussed plan of care with patient given INR level with planned repeat a.m. INR following vitamin K administration per cardiology with transition to cardiac catheterization if appropriate. Patient denies fevers, chills, nausea, emesis, abdominal pain, dyspnea. Objective: Physical Examination: General: awake, alert, oriented x 3 and cooperative, seated upright in bedside chair, in no apparent distress. Skin: normal color, turgor, no icterus, cyanosis. HEENT: AT/NC, EOMI, PERRLA, MMM. Lungs: CTA bilaterally, moderate effort, mild decrease BL bases, no rales, ronchi or wheezing. Heart: Regular rate and rhythm; no gallop, rub audible. Abdomen: soft, obese, NTTP, ND, normal BS, no HSM. Extremities: no cyanosis, clubbing, mild BL LE ankle edema, difficulty palpating BL distal peripheral pulses, chronic w/ notable PAD. Neurological: patient awake, alert, oriented x 3; cognitive function intact; pupils equally reactive to light and accomodation; cranial nerves II-XII grossly normal, moving all 4 extremities, no focal deficits, strength moderately globally decreased secondary to acute presentation. Psychiatric: affect appears normal, no acute evidence of depressive or anxiety feelings. Vitals/I&O's: Vital Signs Temp Pulse Resp BP Pulse Ox 97.4 F L 73 18 127/76 H 99 02/25/18 16:35 02/25/18 16:35 02/25/18 16:35 02/25/18 16:35 02/25/18 16:35 Oxygen Flow Rate (L/min) 2 Oxygen Delivery Method Room Air Weight: 229 lb 4.492 oz Body Mass Index (BMI) 34.8 Intake and Output for Last 24 Hours 02/23/18 02/24/18 02/25/18 23:59 23:59 23:59 Intake Total 950 / 950 Balance 950 / 950 Laboratory Results 02/24/18 23:50: WBC 8.1, RBC 4.75, Hgb 14.0, Hct 42.1, MCV 88.6, MCH 29.5, MCHC 33.3, RDW 15.3 H, RDW Differential 50.0 H, Plt Count 180, MPV 9.9, Immature Gran % (Auto) 0.500, Neut % (Auto) 68.3, Lymph % (Auto) 22.5, [place] % (Auto) 6.1, Eos % (Auto) 2.5, Baso % (Auto) 0.1, Absolute Neuts (auto) 5.5, Absolute Lymphs (auto) 1.81, Total Counted Not Reportable 02/24/18 23:50: Sodium 139, Potassium 4.1, Chloride 104, Carbon Dioxide 28.0, Anion Gap 7, BUN 21 H, Creatinine 1.90 H, Estim Creat Clear Calc 38.50, Est GFR (MDRD) Af Amer 46 L, Est GFR (MDRD) Non-Af 38 L, BUN/Creatinine Ratio 11.1, Glucose 300 H, Calcium 8.6, Troponin I 0.020 02/24/18 23:50: PT 24.0 H, INR 2.1 02/25/18 03:50: Troponin I 1.010 H* 02/25/18 05:16: POC Glucose 126 H 02/25/18 06:00: Troponin I 1.680 H* 02/25/18 06:00: Sodium Cancelled, Potassium Cancelled, Chloride Cancelled, Carbon Dioxide Cancelled, Anion Gap Cancelled, BUN Cancelled, Creatinine Cancelled, Est GFR (MDRD) Af Amer Cancelled, Est GFR (MDRD) Non-Af Cancelled, BUN/Creatinine Ratio Cancelled, Glucose Cancelled, Calcium Cancelled, Triglycerides 309 H, Cholesterol 153, LDL Cholesterol 57, VLDL Cholesterol 62 H, HDL Cholesterol 34 L 02/25/18 06:00: PT 24.4 H, INR 2.2 02/25/18 06:00: APTT 37.6 H 02/25/18 06:00: Sodium 142, Potassium 4.4, Chloride 104, Carbon Dioxide 29.0, Anion Gap 9, BUN 19 H, Creatinine 1.53 H, Estim Creat Clear Calc 47.81, Est GFR (MDRD) Af Amer 59 L, Est GFR (MDRD) Non-Af 49 L, BUN/Creatinine Ratio 12.4, Glucose 125 H, Calcium 9.7, Total Bilirubin 0.80, AST 30, ALT 33, Alkaline Phosphatase 66, Total Protein 7.6, Albumin 3.6, Globulin 4.0, Albumin/Globulin Ratio 0.9 02/25/18 08:55: Troponin I 1.380 H* 02/25/18 11:19: POC Glucose 260 H 02/25/18 13:30: Urine Color Yellow, Urine Clarity Clear, Urine pH 6.5, Ur Specific [place] 1.020, Urine Protein 15 H, Urine Glucose (UA) 100 H, Urine Ketones Negative, Urine Occult Blood Negative, Urine Nitrite Negative, Urine Bilirubin Negative, Urine Urobilinogen Normal, Ur Leukocyte Esterase Negative, Urine RBC 0 SEEN, Urine WBC 0 SEEN, Ur Squamous Epith Cells 0-5 SEEN, Urine Bacteria 0 SEEN, Urine Mucus 0 SEEN 02/25/18 15:55: PT 24.6 H, INR 2.2 02/25/18 16:26: POC Glucose 140 H Current Medications Acetaminophen (Tylenol) 650 mg PO Q6H PRN PRN PRN Reason: Non-cardiac pain (mod-severe) Last Admin: 02/25/18 12:28 Dose: 650 mg Hydrocodone Bitart/Acetaminophen ([place] 5mg-325mg) 1 tablet PO Q12H PRN PRN PRN Reason: PAIN Atorvastatin Calcium (Lipitor) 80 mg PO QHS [facility] Carvedilol (Coreg) 12.5 mg PO BID [facility] Last Admin: 02/25/18 06:21 Dose: 12.5 mg Cholecalciferol (Vitamin D) 5,000 unit PO DAILY [facility] Last Admin: 02/25/18 09:15 Dose: 5,000 unit Clopidogrel Bisulfate (Plavix) 75 mg PO DAILY [facility] Last Admin: 02/25/18 05:12 Dose: Not Given Dextrose (D50w Syringe) 0 gm IV X1 PRN; Protocol PRN Reason: Hypoglycemia Glucagon () 1 mg IM .X1 PRN PRN Reason: Hypoglycemia Hydralazine HCl (Apresoline Iv) 10 mg IV Q4H PRN PRN PRN Reason: SBP > 160 Sodium Chloride () 1,000 mls @ 50 mls/hr IV .Q20H [facility] Last Admin: 02/25/18 09:22 Dose: 50 mls/hr Insulin Human Lispro (Humalog Kwikpen (Bkc)) 0 unit SQ Q6 IVET; Protocol Last Admin: 02/25/18 11:51 Dose: 2 u Lorazepam (Ativan) 0.5 mg PO BID PRN PRN PRN Reason: ANXIETY Magnesium Hydroxide (Milk Of Magnesia) 30 ml PO DAILY PRN PRN Reason: Constipation Magnesium Oxide (Mag-Ox 400) 400 mg PO DAILY [facility] Last Admin: 02/25/18 09:15 Dose: 400 mg Morphine Sulfate () 1 - 2 mg IV Q4H PRN PRN PRN Reason: PAIN Nitroglycerin (Nitrobid) 1 inch TRANSDERM. Q6 IVET Last Admin: 02/25/18 11:48 Dose: 1 inch Sodium Chloride () 5 - 15 ml IV UD PRN PRN Reason: SALINE FLUSH Last Admin: 02/25/18 09:23 Dose: 10 ml Medical Necessity - Tobacco Use Smoking Status: Never smoker Assessment/Plan All Active Problems (Last Reviewed 02/25/18 @ 08:18 by Boni Renae MD) Chest pain, unspecified (Acute) NSTEMI (non-ST elevated myocardial infarction) (Acute) Acute renal failure (Acute) The patient is a 62 y/o M w/ PMHx: PAF, HTN, HLD, CAD s/p CABG x 5, Obesity, GERD, PAF, PAD who presents to the [facility] ED on 02/25/18 with history of onset progressively worsening substernal chest discomfort, worse with exertion with radiation to the left shoulder times 48 hours, pressure-like and aching in sensation. (1) Chest Pain w/ Acute NSTEMI: EKG in ED w/ acute evidence of ischemia, CXR w/ no acute process. Trop elevated, initially 0.020-->1.010-->1.680-->1.380. Admit yasmany to PCU, maintain on a monitored bed, continue serial cardiac enzymes and EKGs. Obtain magnesium level upon admission. Start Heparin drip/therapeutic lovenox. Continue medical management w/ plavix, BB, statin w/ AM FLP obtained as noted. Cardiology consulted, plan for cardiac catheterization. Maintain NPO after midnight. Repeat INR in AM, given vitamin K x 1 today. Plavix, NG, morphine. (2) CAD: s/p recent CABG x 5, MANCERA to LAD, SVG to Ramus, SVG to PDA, SVG to PLV, SVG to OM, PV isolation, left atrial appendage excision 09/21/17 and prior to this PCI w/ stent to prox/distal RCA 2008 and to mid RCA and PCI of the PDA 04/20/15. Patient Coumadin held as noted, continue home plavix, beta-nico and statin. (3) Diabetes mellitus type II: Hold oral home regimen, continue home insulin re gimen, ADA diet, accu checks w/ ISS. (4) Obesity: Weight loss and lifestyle changes encouraged. (5) Hyperlipidemia: Continue high-dose statin regimen. AM FLP obtained with triglycerides 309, total cholesterol 153, LDL 57, VLDL 62, HDL 34. (6) Hypertension: Continue home Coreg, currently maintained on nitroglycerin transdermal regimen, PRN hydralazine. (7) PAF: Continue home coreg, INR therapeutic upon presentation, vitamin K administered given planned cardiac catheterization, repeat INR in AM. (8) PAD: s/p PCI to LLE, noted poor vascular supply to RLE; however, given flow per Dr. Gomez not appropriate for stenting in case (9) DVT prophylaxis: SCDs, INR therapeutic upon presentation, vitamin K administered repeat INR in AM.
[2018-02-25] MEDS: Morphine 2 MG/ML Syringe IV (17:14)
[2018-02-25] MEDS: Magnesium Hydroxide 30 ML UDC PO (19:30)
[2018-02-25] MEDS: Insulin Lispro 100 UNIT/ML INSULN.PEN SC (21:46)
[2018-02-25] MEDS: Clopidogrel Bisulfate 75 MG Tablet PO (21:47)
[2018-02-25] MEDS: Atorvastatin Calcium 80 MG Tablet PO (21:47)
[2018-02-25 22:01] LABS: Bedside Glucose 213 mg/dL (70-110)
[2018-02-26] VITALS (18 sets, daily range): BP systolic 103–140; BP diastolic 64–88; PULSE 66–84; RESP 14–18; TEMP 36.4–36.8; O2SAT 92–97
[2018-02-26] MEDS: Nitroglycerin Oint 1 INCH PACKET TRANSDERM. ×2 (00:04→05:58)
[2018-02-26 05:28] LABS: Hemoglobin 14.5 g/dl (13.0-16.5); Mean Corpuscular Hgb 29.3 pg (27.0-32.0); Mean Corpuscular Volume 88.9 fL (80-94); Mean Platelet Vol. 9.6 fl (6.2-12.0); Platelet Count 193 K/mm3 (150-450); RBC Distribution Width CV 15.2 % (11.6-14.6); RBC Distribution Width SD 49.5 fl (35.1-43.9); Red Blood Count 4.95 M/mm3 (4.6-6.2); White Blood Count 9.5 K/mm3 (4.4-11.0)
[2018-02-26 05:29] LABS: Scan Indicated on CBC? Y/N NO
[2018-02-26 05:35] LABS: International Normalized Ratio 1.6; Prothrombin Time (Protime)PT. 18.7 SECONDS (11.7-14.9)
[2018-02-26 05:36] LABS: Partial Thromboplast Time 32.8 Seconds (24.1-36.2)
[2018-02-26 05:38] LABS: Anion Gap 8 (5-15); BUN 18 mg/dL (7-18); BUN/Creat Ratio 13.7 RATIO (10-20); Calcium,Total 8.8 mg/dL (8.5-10.1); Chloride 103 mmol/L (98-107); Creatinine, Serum 1.31 mg/dL (0.70-1.30); EST Glomerular Filtration Rate 59 mL/min (>60); Est Glom Filt Rate - Afr Amer 71 mL/min (>60); Estimated Creatinine Clearance 55.84 ml/min; Glucose 140 mg/dL (74-106); Potassium 4.3 mmol/L (3.5-5.1); Sodium Level 141 mmol/L (136-145)
--- NOTE | 2018-02-26 05:55 | EKG12_ITS ---
Test Reason : AM EKG Blood Pressure : / mmHG Vent. Rate : 074 BPM Atrial Rate : 074 BPM P-R Int : 174 ms QRS Dur : 086 ms QT Int : 394 ms P-R-T Axes : 012 036 050 degrees QTc Int : 437 ms Normal sinus rhythm Normal ECG Confirmed by RICHARD JAEGER, TEX ([id number]), editor in chief newspaper CHRISTINE MILLER ([id number]) on 02/28/2018 1:52:20 PM Referred By: Tex Ramos Confirmed By:TEX RAMOS MD
[2018-02-26] MEDS: Carvedilol 12.5 MG Tablet PO ×2 (05:57→21:49)
[2018-02-26] MEDS: Clopidogrel Bisulfate 75 MG Tablet PO (05:57)
[2018-02-26] MEDS: 0.9% Normal Saline 1,000 ML 50 ML IV (05:57)
[2018-02-26 07:20] LABS: Bedside Glucose 142 mg/dL (70-110)
--- NOTE | 2018-02-26 08:02 | PCM.PN.HOSP ---
Patient Problems: Active and Suspected Problems (Last Reviewed 02/25/18 @ 08:18 by Boni Renae MD) Chest pain, unspecified (Acute) NSTEMI (non-ST elevated myocardial infarction) (Acute) Subjective: Patient denies any acute events overnight per self or per nursing report. He did have recurrent chest discomfort yesterday however repeat EKGs with noted remained unremarkable. Patient notes he has been fatigued since initial onset of discomfort in his chest which has continued but is less severe. States that he is worried about his ability to work full-time and may consider decreasing after the new year. Cardiac catheterization today occluded saphenous vein grafting with decision for continue medical management. Cardiology addition of Imdur and discontinuation of nitroglycerin. Patient notes headache since has improved. Patient several questions which were clarified with cardiology with plan for restart Coumadin in the a.m. as long as catheterization site appropriate, work restart and activity parameters per cardiology depending on how patient is feeling at follow-up, likely discharge to home tomorrow. Patient denies fevers, chills, nausea, emesis, abdominal pain, recurrent or worsened chest pain or dyspnea. Objective: Physical Examination: General: awake, alert, oriented x 3 and cooperative, seated upright in bedside chair in no apparent distress. Skin: normal color, turgor, no icterus, cyanosis, s/p cardiac catheterization w/ dressing in place. HEENT: AT/NC, EOMI, PERRLA, MMM. Lungs: CTA bilaterally, moderate effort, mild decrease BL bases, no rales, ronchi or wheezing. Heart: Regular rate and rhythm; no gallop, rub audible. Abdomen: soft, obese, NTTP, ND, normal BS. Extremities: no cyanosis, clubbing, or edema. Neurological: patient awake, alert, oriented x 3; cognitive function intact; pupils equally reactive to light and accomodation; cranial nerves II-XII grossly normal, moving all 4 extremities, no focal deficits, strength mildly globally decreased. Psychiatric: affect appears normal, no acute evidence of depressive or anxiety feelings. Vitals/I&O's: Vital Signs Temp Pulse Resp BP Pulse Ox 97.8 F 84 16 128/88 H 93 02/26/18 03:43 02/26/18 04:00 02/26/18 03:43 02/26/18 03:43 02/26/18 07:42 Oxygen Flow Rate (L/min) 2 Oxygen Delivery Method Room Air Weight: 229 lb 4.492 oz Body Mass Index (BMI) 34.8 Intake and Output for Last 24 Hours 02/24/18 02/25/18 02/26/18 23:59 23:59 23:59 Intake Total 1485 / 1485 804 / 804 Balance 1485 / 1485 804 / 804 Laboratory Results 02/25/18 08:55: Troponin I 1.380 H* 02/25/18 11:19: POC Glucose 260 H 02/25/18 13:30: Urine Color Yellow, Urine Clarity Clear, Urine pH 6.5, Ur Specific [place] 1.020, Urine Protein 15 H, Urine Glucose (UA) 100 H, Urine Ketones Negative, Urine Occult Blood Negative, Urine Nitrite Negative, Urine Bilirubin Negative, Urine Urobilinogen Normal, Ur Leukocyte Esterase Negative, Urine RBC 0 SEEN, Urine WBC 0 SEEN, Ur Squamous Epith Cells 0-5 SEEN, Urine Bacteria 0 SEEN, Urine Mucus 0 SEEN 02/25/18 15:55: PT 24.6 H, INR 2.2 02/25/18 16:26: POC Glucose 140 H 02/25/18 21:46: POC Glucose 213 H 02/26/18 05:10: PT 18.7 H, INR 1.6, APTT 32.8 02/26/18 05:10: Sodium 141, Potassium 4.3, Chloride 103, Carbon Dioxide 30.0, Anion Gap 8, BUN 18, Creatinine 1.31 H, Estim Creat Clear Calc 55.84, Est GFR (MDRD) Af Amer 71, Est GFR (MDRD) Non-Af 59 L, BUN/Creatinine Ratio 13.7, Glucose 140 H, Calcium 8.8 02/26/18 05:10: WBC 9.5, RBC 4.95, Hgb 14.5, Hct 44.0, MCV 88.9, MCH 29.3, MCHC 33.0, RDW 15.2 H, RDW Differential 49.5 H, Plt Count 193, MPV 9.6 02/26/18 07:14: POC Glucose 142 H Current Medications Acetaminophen (Tylenol) 650 mg PO Q6H PRN PRN PRN Reason: Non-cardiac pain (mod-severe) Last Admin: 02/25/18 12:28 Dose: 650 mg Hydrocodone Bitart/Acetaminophen ([place] 5mg-325mg) 1 tablet PO Q12H PRN PRN PRN Reason: PAIN Atorvastatin Calcium (Lipitor) 80 mg PO QHS [facility] Last Admin: 02/25/18 21:47 Dose: 80 mg Carvedilol (Coreg) 12.5 mg PO BID [facility] Last Admin: 02/26/18 05:57 Dose: 12.5 mg Cholecalciferol (Vitamin D) 5,000 unit PO DAILY [facility] Last Admin: 02/25/18 09:15 Dose: 5,000 unit Clopidogrel Bisulfate (Plavix) 75 mg PO QHS [facility] Last Admin: 02/26/18 05:57 Dose: 75 mg Dextrose (D50w Syringe) 0 gm IV X1 PRN; Protocol PRN Reason: Hypoglycemia Glucagon () 1 mg IM .X1 PRN PRN Reason: Hypoglycemia Hydralazine HCl (Apresoline Iv) 10 mg IV Q4H PRN PRN PRN Reason: SBP > 160 Sodium Chloride () 1,000 mls @ 50 mls/hr IV .Q20H [facility] Last Admin: 02/26/18 05:57 Dose: 50 mls/hr Insulin Human Lispro (Humalog Kwikpen (Bkc)) 0 unit SC ACHS [facility]; Protocol Last Admin: 02/25/18 21:46 Dose: 2 u Lorazepam (Ativan) 0.5 mg PO BID PRN PRN PRN Reason: ANXIETY Magnesium Hydroxide (Milk Of Magnesia) 30 ml PO DAILY PRN PRN Reason: Constipation Last Admin: 02/25/18 19:30 Dose: 30 ml Magnesium Oxide (Mag-Ox 400) 400 mg PO DAILY [facility] Last Admin: 02/25/18 09:15 Dose: 400 mg Morphine Sulfate () 1 - 2 mg IV Q4H PRN PRN PRN Reason: PAIN Last Admin: 02/25/18 17:14 Dose: 1 mg Nitroglycerin (Nitrobid) 1 inch TRANSDERM. Q6 [facility] Last Admin: 02/26/18 05:58 Dose: 1 inch Sodium Chloride () 5 - 15 ml IV UD PRN PRN Reason: SALINE FLUSH Last Admin: 02/25/18 09:23 Dose: 10 ml Medical Necessity - Tobacco Use Smoking Status: Never smoker Assessment/Plan All Active Problems (Last Reviewed 02/25/18 @ 08:18 by Boni Renae MD) Chest pain, unspecified (Acute) NSTEMI (non-ST elevated myocardial infarction) (Acute) Acute renal failure (Acute) The patient is a 62 y/o M w/ PMHx: PAF, HTN, HLD, CAD s/p CABG x 5, Obesity, GERD, PAF, PAD who presents to the [facility] ED on 02/25/18 with history of onset progressively worsening substernal chest discomfort, worse with exertion with radiation to the left shoulder times 48 hours, pressure-like and aching in sensation. (1) Chest Pain w/ Acute NSTEMI: EKG in ED w/ acute evidence of ischemia, CXR w/ no acute process. Trop elevated, initially 0.020-->1.010-->1.680-->1.380. Admitted to PCU, maintain on a monitored bed, Continue medical management w/ plavix, BB, statin, addition of isosorbide w/ AM FLP obtained as noted. Cardiology consulted, 02/26/18 cardiac catheterization as INR 1.6 s/p reversal coumadin. Cardiac catheterization w/ elevated LV end-diastolic pressure, segmented LV systolic dysfunction noted to be mild, LVEF 50%, [place] multivessel coronary disease with MANCERA to LAD patent, SVG to OM occluded, SVG to IR occluded, SVG sequential graft to RCA PDA occluded, left to right collateral flow and right to left collateral for present with recognitions for continued aggressive medical therapy. Per discussion with Dr. Coker will restart patient coumadin in AM pending reevaluation of cardiac catheterization site. ECHO w/ segmental dysfunction with preserved EF, EF 60%, postoperative septal motion, trivial MVI, trivial TVI, mild focal AV calcification, diastolic function indeterminate. ASA, Plavix, NG, morphine. (2) CAD: s/p recent CABG x 5, MANCERA to LAD, SVG to Ramus, SVG to PDA, SVG to PLV, SVG to OM, PV isolation, left atrial appendage excision 09/21/17 and prior to this PCI w/ stent to prox/distal RCA 2008 and to mid RCA and PCI of the PDA 04/20/15. Patient Coumadin held as noted, continued asa, home plavix, beta-nico and statin. Cardiac catheterization w/ elevated LV end-diastolic pressure, segmented LV systolic dysfunction noted to be mild, LVEF 50%, [place] multivessel coronary disease with MANCERA to LAD patent, SVG to OM occluded, SVG to IR occluded, SVG sequential graft to RCA PDA occluded, left to right collateral flow and right to left collateral for present with recognitions for continued aggressive medical therapy. Discussed with cardiology and plan for restart Coumadin in a.m. pending reevaluation of cardiac catheterization site with continued aggressive medical therapies. (3) Diabetes mellitus type II: Hold oral home regimen, continue home insulin regimen, ADA diet, accu checks w/ ISS. (4) Obesity: Weight loss and lifestyle changes encouraged. (5) Hyperlipidemia: Continue high-dose statin regimen. AM FLP obtained with triglycerides 309, total cholesterol 153, LDL 57, VLDL 62, HDL 34. (6) Hypertension: Continue home Coreg, nitroglycerin transdermal regimen initially with now addition imdur per cardiology, PRN hydralazine. (7) PAF: Continue home coreg, INR therapeutic upon presentation, vitamin K administered w/ repeat 02/26/18 INR 1.6 given cardiac catheterization, plan restart of Coumadin in a.m. pending reevaluation of cardiac catheterization site. (8) PAD: s/p PCI to LLE, noted poor vascular supply to RLE; however, given flow per Dr. Gomez not appropriate for stenting in case. Will review when cleared to restart coumadin given history and presence LLE stents. (9) DVT prophylaxis: SCDs, INR therapeutic upon presentation, vitamin K administered repeat INR this AM 1.6. Plan restart Coumadin in a.m. pending reevaluation of cardiac catheterization site. Code Visit Inpatient E&M: 81249 Subs Hosp L2
--- NOTE | 2018-02-26 08:08 | PN_ITS ---
Patient Problems: Active and Suspected Problems (Last Reviewed 02/25/18 @ 08:18 by Boni Renae MD) Chest pain, unspecified (Acute) NSTEMI (non-ST elevated myocardial infarction) (Acute) Subjective: Patient denies any acute events overnight per self or per nursing report. He did have recurrent chest discomfort yesterday however repeat EKGs with noted remained unremarkable. Patient notes he has been fatigued since initial onset of discomfort in his chest which has continued but is less severe. States that he is worried about his ability to work full-time and may consider decreasing after the new year. Cardiac catheterization today occluded saphenous vein grafting with decision for continue medical management. Cardiology addition of Imdur and discontinuation of nitroglycerin. Patient notes headache since has improved. Patient several questions which were clarified with cardiology with plan for restart Coumadin in the a.m. as long as catheterization site appropriate, work restart and activity parameters per cardiology depending on how patient is feeling at follow-up, likely discharge to home tomorrow. Patient denies fevers, chills, nausea, emesis, abdominal pain, recurrent or worsened chest pain or dyspnea. Objective: Physical Examination: General: awake, alert, oriented x 3 and cooperative, seated upright in bedside chair in no apparent distress. Skin: normal color, turgor, no icterus, cyanosis, s/p cardiac catheterization w/ dressing in place. HEENT: AT/NC, EOMI, PERRLA, MMM. Lungs: CTA bilaterally, moderate effort, mild decrease BL bases, no rales, ronchi or wheezing. Heart: Regular rate and rhythm; no gallop, rub audible. Abdomen: soft, obese, NTTP, ND, normal BS. Extremities: no cyanosis, clubbing, or edema. Neurological: patient awake, alert, oriented x 3; cognitive function intact; pupils equally reactive to light and accomodation; cranial nerves II-XII grossly normal, moving all 4 extremities, no focal deficits, strength mildly globally decreased. Psychiatric: affect appears normal, no acute evidence of depressive or anxiety feelings. Vitals/I&O's: Vital Signs Temp Pulse Resp BP Pulse Ox 97.8 F 84 16 128/88 H 93 02/26/18 03:43 02/26/18 04:00 02/26/18 03:43 02/26/18 03:43 02/26/18 07:42 Oxygen Flow Rate (L/min) 2 Oxygen Delivery Method Room Air Weight: 229 lb 4.492 oz Body Mass Index (BMI) 34.8 Intake and Output for Last 24 Hours 02/24/18 02/25/18 02/26/18 23:59 23:59 23:59 Intake Total 1485 / 1485 804 / 804 Balance 1485 / 1485 804 / 804 Laboratory Results 02/25/18 08:55: Troponin I 1.380 H* 02/25/18 11:19: POC Glucose 260 H 02/25/18 13:30: Urine Color Yellow, Urine Clarity Clear, Urine pH 6.5, Ur Specific [place] 1.020, Urine Protein 15 H, Urine Glucose (UA) 100 H, Urine Keto axel Negative, Urine Occult Blood Negative, Urine Nitrite Negative, Urine Bilirubin Negative, Urine Urobilinogen Normal, Ur Leukocyte Esterase Negative, Urine RBC 0 SEEN, Urine WBC 0 SEEN, Ur Squamous Epith Cells 0-5 SEEN, Urine Bacteria 0 SEEN, Urine Mucus 0 SEEN 02/25/18 15:55: PT 24.6 H, INR 2.2 02/25/18 16:26: POC Glucose 140 H 02/25/18 21:46: POC Glucose 213 H 02/26/18 05:10: PT 18.7 H, INR 1.6, APTT 32.8 02/26/18 05:10: Sodium 141, Potassium 4.3, Chloride 103, Carbon Dioxide 30.0, Anion Gap 8, BUN 18, Creatinine 1.31 H, Estim Creat Clear Calc 55.84, Est GFR (MDRD) Af Amer 71, Est GFR (MDRD) Non-Af 59 L, BUN/Creatinine Ratio 13.7, Glucose 140 H, Calcium 8.8 02/26/18 05:10: WBC 9.5, RBC 4.95, Hgb 14.5, Hct 44.0, MCV 88.9, MCH 29.3, MCHC 33.0, RDW 15.2 H, RDW Differential 49.5 H, Plt Count 193, MPV 9.6 02/26/18 07:14: POC Glucose 142 H Current Medications Acetaminophen (Tylenol) 650 mg PO Q6H PRN PRN PRN Reason: Non-cardiac pain (mod-severe) Last Admin: 02/25/18 12:28 Dose: 650 mg Hydrocodone Bitart/Acetaminophen (Alta 5mg-325mg) 1 tablet PO Q12H PRN PRN PRN Reason: PAIN Atorvastatin Calcium (Lipitor) 80 mg PO QHS [facility] Last Admin: 02/25/18 21:47 Dose: 80 mg Carvedilol (Coreg) 12.5 mg PO BID [facility] Last Admin: 02/26/18 05:57 Dose: 12.5 mg Cholecalciferol (Vitamin D) 5,000 unit PO DAILY [facility] Last Admin: 02/25/18 09:15 Dose: 5,000 unit Clopidogrel Bisulfate (Plavix) 75 mg PO QHS [facility] Last Admin: 02/26/18 05:57 Dose: 75 mg Dextrose (D50w Syringe) 0 gm IV X1 PRN; Protocol PRN Reason: Hypoglycemia Glucagon () 1 mg IM .X1 PRN PRN Reason: Hypoglycemia Hydralazine HCl (Apresoline Iv) 10 mg IV Q4H PRN PRN PRN Reason: SBP > 160 Sodium Chloride () 1,000 mls @ 50 mls/hr IV .Q20H [facility] Last Admin: 02/26/18 05:57 Dose: 50 mls/hr Insulin Human Lispro (Humalog Kwikpen (Bkc)) 0 unit SC ACHS [facility]; Protocol Last Admin: 02/25/18 21:46 Dose: 2 u Lorazepam (Ativan) 0.5 mg PO BID PRN PRN PRN Reason: ANXIETY Magnesium Hydroxide (Milk Of Magnesia) 30 ml PO DAILY PRN PRN Reason: Constipation Last Admin: 02/25/18 19:30 Dose: 30 ml Magnesium Oxide (Mag-Ox 400) 400 mg PO DAILY [facility] Last Admin: 02/25/18 09:15 Dose: 400 mg Morphine Sulfate () 1 - 2 mg IV Q4H PRN PRN PRN Reason: PAIN Last Admin: 02/25/18 17:14 Dose: 1 mg Nitroglycerin (Nitrobid) 1 inch TRANSDERM. Q6 [facility] Last Admin: 02/26/18 05:58 Dose: 1 inch Sodium Chloride () 5 - 15 ml IV UD PRN PRN Reason: SALINE FLUSH Last Admin: 02/25/18 09:23 Dose: 10 ml Medical Necessity - Tobacco Use Smoking Status: Never smoker Assessment/Plan All Active Problems (Last Reviewed 02/25/18 @ 08:18 by Boni Renae MD) Chest pain, unspecified (Acute) NSTEMI (non-ST elevated myocardial infarction) (Acute) Acute renal failure (Acute) The patient is a 62 y/o M w/ PMHx: PAF, HTN, HLD, CAD s/p CABG x 5, Obesity, GE RD, PAF, PAD who presents to the [facility] ED on 02/25/18 with history of onset progressively worsening substernal chest discomfort, worse with exertion with radiation to the left shoulder times 48 hours, pressure-like and aching in sensation. (1) Chest Pain w/ Acute NSTEMI: EKG in ED w/ acute evidence of ischemia, CXR w/ no acute process. Trop elevated, initially 0.020-->1.010-->1.680-->1.380. Admitted to PCU, maintain on a monitored bed, Continue medical management w/ plavix, BB, statin, addition of isosorbide w/ AM FLP obtained as noted. Cardiology consulted, 02/26/18 cardiac catheterization as INR 1.6 s/p reversal coumadin. Cardiac catheterization w/ elevated LV end-diastolic pressure, segmented LV systolic dysfunction noted to be mild, LVEF 50%, [place] multivessel coronary disease with MANCERA to LAD patent, SVG to OM occluded, SVG to IR occluded, SVG sequential graft to RCA PDA occluded, left to right collateral flow and right to left collateral for present with recognitions for continued aggressive medical therapy. Per discussion with Dr. Coker will restart patient coumadin in AM pending reevaluation of cardiac catheterization site. ECHO w/ segmental dysfunction with preserved EF, EF 60%, postoperative septal motion, trivial MVI, trivial TVI, mild focal AV calcification, diastolic function indeterminate. ASA, Plavix, NG, morphine. (2) CAD: s/p recent CABG x 5, MANCERA to LAD, SVG to Ramus, SVG to PDA, SVG to PLV, SVG to OM, PV isolation, left atrial appendage excision 09/21/17 and prior to this PCI w/ stent to prox/distal RCA 2008 and to mid RCA and PCI of the PDA 04/20/15. Patient Coumadin held as noted, continued asa, home plavix, beta- nico and statin. Cardiac catheterization w/ elevated LV end-diastolic pressure, segmented LV systolic dysfunction noted to be mild, LVEF 50%, [place] multivessel coronary disease with MANCERA to LAD patent, SVG to OM occluded, SVG to IR occluded, SVG sequential graft to RCA PDA occluded, left to right collateral flow and right to left collateral for present with recognitions for continued aggressive medical therapy. Discussed with cardiology and plan for restart Coumadin in a.m. pending reevaluation of cardiac catheterization site with continued aggressive medical therapies. (3) Diabetes mellitus type II: Hold oral home regimen, continue home insulin regimen, ADA diet, accu checks w/ ISS. (4) Obesity: Weight loss and lifestyle changes encouraged. (5) Hyperlipidemia: Continue high-dose statin regimen. AM FLP obtained with triglycerides 309, total cholesterol 153, LDL 57, VLDL 62, HDL 34. (6) Hypertension: Continue home Coreg, nitroglycerin transdermal regimen initially with now addition imdur per cardiology, PRN hydralazine. (7) PAF: Continue home coreg, INR therapeutic upon presentation, vitamin K administered w/ repeat 02/26/18 INR 1.6 given cardiac catheterization, plan restart of Coumadin in a.m. pending reevaluation of cardiac catheterization site. (8) PAD: s/p PCI to LLE, noted poor vascular supply to RLE; however, given flow per Dr. Gomez not appropriate for stenting in case. Will review when cleared to restart coumadin given history and presence LLE stents. (9) DVT prophylaxis: SCDs, INR therapeutic upon presentation, vitamin K administered repeat INR this AM 1.6. Plan restart Coumadin in a.m. pending reevaluation of cardiac catheterization site. Code Visit Inpatient E&M: 60301 Subs Hosp L2
[2018-02-26 08:28] LABS: Magnesium 2.3 mg/dL (1.6-2.6)
[2018-02-26] MEDS: LORazepam 0.5 MG Tablet PO (11:24)
[2018-02-26] MEDS: Morphine 2 MG/ML Syringe IV (11:24)
--- NOTE | 2018-02-26 11:43 | CASEMGMT ---
GENIA PETERSON assessment: Face to Face with patient for initial transition planning/care coordination assessment. GENIA PETERSON introduced self and role at [facility], pt voices understanding and consents to assessment at this time. Pt is lying in bed in no distress at this time. Pt is A/Ox4 at this time and answers all questions appropriately at this time. Pt's is at bedside during assessment. Care providers, pharmacy, and demographics verified at this time. PCP: Andrew Gomez III Specialists: John Paul, cardio; Patricia, surg; Naif puldilia Preferred Pharmacy: [facility] retail pharm Insurance: MMO Prescription Benefit: MMO Living Will/HPOA: Pt states does not have LW/HPOA and declines info at this time. LNOK: Madison Ahumada, ; Timi/Shaylee Christian, friends Living Arrangements: Pt states lives with in 1 story home with a couple steps into home and states no concerns at home at this time. Transportation: Pt states drives self and states no transportation concerns at this time. DME/HHC: Pt states has bipap currently through [facility] and states no need for any further DME at this time. Pt states no hx of HHC or SNF in the past. Pt states no concerns with going home at time of discharge. Pt states is retired. Pt states does not smoke but does drink ETOH occasionally. Pt states no further concerns/needs at this time. CM to follow for any further discharge planning/needs. Advised pt to ask for CM if any further questions/concerns/needs arise, voices understanding. Plan: [place] GENIA PETERSON
[2018-02-26] MEDS: Magnesium Oxide 400 MG Tablet PO (11:46)
[2018-02-26 11:50] LABS: Bedside Glucose 114 mg/dL (70-110)
[2018-02-26] MEDS: Isosorbide Mononitrate 30 MG Tablet PO (11:50)
--- NOTE | 2018-02-26 14:10 | CL.D_ITS ---
Patient Name: NOMAN STONE Study Date: 02/26/2018 Performing: Tex Coker MD Ht: 68 inches 173 cm : 1955 Wt: 229.6 lbs 104 kg Age: 62 Gender: male BSA: 2.17 PROCEDURE(S) PERFORMED BV99-SAN/COR/LV/CABG DC11-AO ROOT ANGIO WITH HEART CATH CLINICAL PROFILE AND INDICATIONS Indications: Worsening Angina, Suspected CAD Heart Failure: None Stress/Imaging Stress/Image Study Performed: No Angina Classification Anginal Classification w/in 2 Weeks: CCS III CAD Presentations: Non-STEMI. CONCLUSIONS Elevated Left Ventricular End Diastolic Pressure Segmented LV systolic dysfunction- Mild LVEF: by LV gram 50 % [place] Multivessel CAD MANCERA to LAD: patent SVG to OM: occluded SVG to IR: occluded SVG sequential graft to RCA PDA / PLV: occluded Left to Left Collateral Flow Right to Left Collateral Flow RECOMMENDATIONS Risk factor modification Medical therapy DESCRIPTION OF PROCEDURE The patient arrived to the procedure lab. The risks and benefits of the procedure as well as a full d escription of our services here and current unavailability of surgical backup were fully explained to the patient and/or their significant other prior to the catheterization. The Timeout was completed, verifying the correct patient and procedure. The patient's procedural site was prepped and draped in the usual fashion. Local anesthetic was given subcutaneously to right groin region with Lidocaine 2%. Using a modified Seldinger technique, arterial access was obtained via the right femoral artery, a 4 Fr sheath was inserted Left Coronary Artery selective angiography was performed in multiple views us ing a 4 Fr. JL4 catheter. Right Coronary Artery selective angiography was then performed in multiple views using a 4 Fr. JR4 catheter. Saphenous Vein graft to the RPDA selective angiography was performe d in multiple views using a 4 Fr. JR4 catheter. Saphenous Vein graft to the RPL selective angiography was performed in multiple views using a 4 Fr. JR4 catheter. Left internal mammary artery graft to the LAD selective angiography was performed in multiple views using a 4 Fr. JR4 catheter. Le ft internal mammary artery graft to the LAD selective angiography was performed in multiple views usi ng a 4 Fr. IM catheter. Left Ventriculography was performed in HICKEY projection using a 4 Fr. Pigtail c atheter. LV to AO pullback pressures were then recorded. Ascending (root) aorta selective angiography was then performed in single view. Ascending (root) aorta selective angiography was then performed i n single view.The arterial sheath was pulled and manual compression applied until hemostasis is achie pricilla. CORONARY ANGIOGRAPHY DOMINANCE: Right Dominant LEFT HEART ASSESSMENT Left Ventricular Ejection Fraction: by LV Gram 50 % Inferior Basal Akinesis. Inferior Mid Hypokinesis. Inferior Apical Hypokinesis Elevated Left Ventricular End Diastolic Pressure LVEDP: 18 mmHg LEFT MAIN: Mild calcification, Mild luminal irregularities LEFT ANTERIOR DECENDING ARTERY: Mild luminal irregularities PROX LAD: Mild calcification MID LAD: is occluded, Fills predominantly from MANCERA graft flow with no angiographically significant a ppearing disease distal to the graft attachmenty DIAGONAL 1: Mid - 50 % Stenosis DIAGONAL 2: Proximal - 25 % Stenosis CIRCUMFLEX ARTERY: PROX CIRC: Mild luminal irregularities OM 2: Mid - superior bifurcating branch appears occluded RAMUS: is occluded with the distal bifurcating portion filling late, faintly, and partially from left to left collateral flow RIGHT CORONARY ARTERY: Diffuse 25 % Stenosis PROX RCA: Previously placed stent is patent DISTAL RCA: is occluded GRAFTS: MANCERA graft to the Mid LAD is patent Saphenous Vein graft to the 2nd OM is totally occluded Saphenous Vein graft to the Ramus is totally occluded Saphenous Vein graft to the RCA is totally occluded COLLATERAL FLOW: Collateral flow from Left to Left Collateral flow from Left to Right VALVE FINDINGS: Normal Aortic Valve function Normal Mitral Valve function AORTIC ROOT: Angiographically normal COMPLICATIONS No Complications PROCEDURE MEDICATIONS Versed 1 mg IV Versed 1 mg IV Oxygen: 2 L/min via nasal cannula Aspirin (325mg) 325 Tabs PO @ 02/26/2018 09:04:39 SUMMARY OF HEMODYNAMIC DATA Time AIR REST ECG 08:59:03 AO 148/78 (105) SA 09:33:07 LV 139/6, 17 09:58:17 LV 138/6, 18 09:58:24 LV 151/5, 15 09:59:41 LV 146/6, 17 09:59:47 LVp 147/5, 15 09:59:51 AOp 142/74 (101) 09:59:56 Signed By Tex Coker MD On 02/26/2018 14:10:15 Tex Coker MD
--- NOTE | 2018-02-26 14:48 | NURSING ---
Ambulated patient to and around hallways. No s/s of bleeding groin site c/d/i.
--- NOTE | 2018-02-26 15:29 | PCM.PN.CARD ---
Subjectve: The patient underwent diagnostic cardiac catheterization earlier this day. He was noted to have a MANCERA graft patent to the LAD. His SVG graft to the OM was occluded, his SVG graft to the intermediate ramus was occluded, and his SVG graft to the RCA was occluded. He is continuing medical therapy. He has had no adverse events since his procedure. Objective: Vital Signs Temp Pulse Resp BP Pulse Ox 98.2 F 79 18 123/72 H 94 02/26/18 14:47 02/26/18 14:47 02/26/18 14:47 02/26/18 14:47 02/26/18 14:47 Oxygen Flow Rate (L/min) 2 Oxygen Delivery Method Room Air Weight: 229 lb 4.492 oz Body Mass Index (BMI) 34.8 Intake and Output for Last 24 Hours 02/24/18 02/25/18 02/26/18 23:59 23:59 23:59 Intake Total 1485 / 1485 959 / 959 Balance 1485 / 1485 959 / 959 General: Awake, Alert, Oriented x 3, Cooperative, No Acute Distress HEENT: Atraumatic, Normocephalic, PERRL, EOMI, Sclera Non Icteric Oral: Moist Mucosa Neck: Supple, Good ROM, No JVD Lungs: Clear to auscultation Cardiovascular: Regular Rhythm, Normal S1, Normal S2 Vascular: Normal Femoral Pulses Abdomen: Bowel Sounds Present, Soft, Non Tender Extremities: Trace LLE Edema Neurological: No Focal Motor or Sensory Deficit Psych/Mental Status: Appropriate 02/25/18 15:55: PT 24.6 H, INR 2.2 02/26/18 05:10: PT 18.7 H, INR 1.6, APTT 32.8 02/26/18 05:10: Sodium 141, Potassium 4.3, Chloride 103, Carbon Dioxide 30.0, Anion Gap 8, BUN 18, Creatinine 1.31 H, Est GFR (MDRD) Af Amer 71, Est GFR (MDRD) Non-Af 59 L, BUN/Creatinine Ratio 13.7, Glucose 140 H, Calcium 8.8 02/26/18 05:10: WBC 9.5, RBC 4.95, Hgb 14.5, Hct 44.0, MCV 88.9, MCH 29.3, MCHC 33.0, RDW 15.2 H, RDW Differential 49.5 H, Plt Count 193, MPV 9.6 02/26/18 05:10: Magnesium 2.3 Rhythm: Sinus rhythm Echocardiogram: Left ventricular regional wall motion abnormalities: Overall LVEF approximately 60%: Please see official report Cardiac catheterization: Left ventricular regional wall motion abnormalities: Overall LVEF approximately 50%: [place] multivessel disease: MANCERA to the LAD patent: SVG to the OM occluded: SVG to the intermediate ramus occluded: SVG to the RCA occluded: Left to right collateral flow and left to left collateral flow present: Please see official report Medical Necessity - Tobacco Use Smoking Status: Never smoker Assessment/Plan 1. Non-ST segment elevation SD The patient presents with symptoms concerning for angina pectoris. He has had objective findings with abnormal cardiac enzymes. His clinical scenario and objective findings are concerning for an acute non-ST segment elevation SD. He is being followed by cardiac rhythm, cardiac enzymes, and ECG. The waist with diagnostic cardiac catheterization. It appears his MANCERA graft remains patent, however, he has occluded all 3 vein grafts 1 of which was a sequential vein graft. At the present time he will need to continue medical management. Is unclear as to whether or not he could be considered a candidate for EECP therapy noting his peripheral arterial occlusive disease of the lower extremities. He did not appear to be an ideal candidate for further percutaneous intervention at this time. 2. CAD status post PCI status post CABG The present time he is going to continue medical management. His clinical course will need to be followed as it is unclear as to how he will respond to medications and what symptoms he may or may not have and how this will impact his ability to work versus not being able to work, etc. 4. Hyperlipidemia The patient will continue lipid-lowering therapy as deemed appropriate. 5. Hypertension The patient will continue antihypertensive therapy as deemed appropriate. 5. Diabetes mellitus The patient will continue under the care of internal medicine. 6. Renal insufficiency The patient's creatinine level was elevated upon evaluation in the emergency department. It has improved. He will continue to be followed with respect to his renal function. Comment: The patient's case has been discussed and reviewed with the patient and his spouse. This note was generated using a voice recognition system and there may be incorrect words, spelling or punctuation that were not noted when reviewing the office note prior to saving.
[2018-02-26] MEDS: Insulin Lispro 100 UNIT/ML INSULN.PEN SC ×2 (16:34→21:52)
[2018-02-26 16:46] LABS: Bedside Glucose 193 mg/dL (70-110)
[2018-02-26] MEDS: 0.9% Normal Saline 1,000 ML 75 ML IV (17:51)
[2018-02-26] MEDS: HYDROcodone Bitartrate/Apap 5/325 Tablet PO (17:54)
[2018-02-26] MEDS: Atorvastatin Calcium 80 MG Tablet PO (21:49)
[2018-02-26] MEDS: Ranolazine 500 MG Tablet PO (21:50)
[2018-02-26 22:11] LABS: Bedside Glucose 150 mg/dL (70-110)
[2018-02-27 03:01] VITALS: PULSE 56
[2018-02-27 03:45] VITALS: BP 134/84; PULSE 59; RESP 16; TEMP 36.3; O2SAT 95
[2018-02-27 06:03] LABS: Absolute Lymphocyte Count 2.75 X10^3/ul (0.83-4.51); Absolute Neutrophil Count 4.3 X10^3/uL (2.0-7.7); Basophil# 0.02 X10^3/uL; Basophil% 0.2 % (0-1); Eosinophil# 0.18 X10^3/uL; Eosinophils% 2.2 % (0-5); Hematocrit 42.5 % (40-54); Hemoglobin 13.6 g/dl (13.0-16.5); Lymphocyte # 2.75 X10^3/ul (4.0); Lymphocyte % 34.3 % (19-41); Mean Corpuscular Hgb 28.6 pg (27.0-32.0); Mean Corpuscular Volume 89.3 fL (80-94); Monocyte# 0.77 X10^3/uL; Monocyte% 9.6 % (0-10); Neutrophil # 4.27 X10^3/uL (2.7-7.7); Neutrophil % 53.3 % (47-70); Platelet Count 176 K/mm3 (150-450); RBC Distribution Width CV 15.1 % (11.6-14.6); RBC Distribution Width SD 49.3 fl (35.1-43.9); Red Blood Count 4.76 M/mm3 (4.6-6.2)
[2018-02-27 06:11] LABS: POSITIVE COUNT NO; POSITIVE DIFFERENTIAL NO; POSITIVE MORPHOLOGY NO
[2018-02-27 06:25] LABS: Anion Gap 5 (5-15); BUN 15 mg/dL (7-18); BUN/Creat Ratio 12.3 RATIO (10-20); Calcium,Total 8.4 mg/dL (8.5-10.1); Chloride 104 mmol/L (98-107); Creatinine, Serum 1.22 mg/dL (0.70-1.30); EST Glomerular Filtration Rate 64 mL/min (>60); Est Glom Filt Rate - Afr Amer 77 mL/min (>60); Estimated Creatinine Clearance 59.96 ml/min; Glucose 135 mg/dL (74-106); Potassium 4.1 mmol/L (3.5-5.1); Sodium Level 138 mmol/L (136-145)
[2018-02-27 06:46] LABS: Bedside Glucose 128 mg/dL (70-110)
[2018-02-27 07:05] VITALS: PULSE 72
[2018-02-27 07:24] VITALS: O2SAT 96
[2018-02-27] MEDS: Aspirin E.C. 81 MG Tablet PO (08:20)
--- NOTE | 2018-02-27 08:30 | DCINST_ITS ---
- Discharge Diagnoses Current Active Problems: Current Active and Chronic Problems (Last Reviewed 02/25/18 @ 08:18 by Boni Renae MD) (1) Chest Pain w/ Acute NSTEMI w/ multivessel coronary disease with MANCERA to LAD patent, SVG to OM occluded, SVG to IR occluded, SVG sequential graft to RCA PDA occluded, left to right collateral flow and right to left collateral (2) CAD s/p recent CABG x 5, MANCERA to LAD, SVG to Ramus, SVG to PDA, SVG to PLV, SVG to OM, PV isolation, left atrial appendage excision 09/21/17 and prior to this PCI w/ stent to prox/distal RCA 2008 and to mid RCA and PCI of the PDA 04/20/15 (3) Diabetes mellitus type II (4) Obesity (5) Hyperlipidemia (6) Hypertension (7) PAF (8) PAD You will use the following diet at home:: Calorie/Carbohydrate Controlled (specify 1200, 1400, etc), Cardiac Your food should be the consistency of: Regular Your liquids should be the consistency of: Regular/Thin Discharge Activity: - - Activity parameters per Cardiology. Return to work on:: 03/04/18 - Work parameters per Cardiology May resume sexual activity in: 1-2 weeks Weight Bearing Status: Weight bearing as tolerated Call your doctor if your incision/area has: Continuous Slow Oozing, Sudden Increased Bleeding, Increased Pain/ Swelling, Increased Redness, Foul Smelling Discharge, Swelling at the incision site Call your doctor if you observe: Fever of 101 or Higher, Inability to urinate, Inability to have a bowel movement, Shortness of breath, Dizziness, Fainting spells, Chest pain, Uncontrolled pain Instructions: Symptoms of a Heart Attack, First Aid: Heart Attacks, Recognizing a Heart Attack or Angina, Understanding Coronary Artery Disease (CAD), Discharge Instructions for Heart Attack Additional Instructions: Please follow-up outpatient and trend your INR, obtain initial on 02/28/18 and your physician will alter your coumadin to achieve ther apeutic level 2-2.5. Allergies/Adverse Reactions: Allergies adhesive Allergy (Verified 02/24/18 23:11) Unknown lisinopril Allergy (Verified 02/24/18 23:11) Unknown Penicillins Allergy (Verified 02/24/18 23:11) Unknown Medications to take at Discharge Clopidogrel Bisulfate [Plavix] 75 mg PO DAILY 02/07/13 Nitroglycerin [Nitrostat] 0.4 mg SUBLINGUAL Q5M PRN 02/07/13 Cholecalciferol (Vitamin D3) [Vitamin D] 5,000 unit PO DAILY 01/16/14 Atorvastatin Calcium [Lipitor] 80 mg PO QHS 07/05/15 Dulaglutide [Trulicity] 1.5 mg SQ QWEEK 09/09/17 Magnesium Oxide 500 mg PO DAILY 09/09/17 Insulin Glargine,Hum.rec.anlog [Lantus] 30 unit SQ QHS 09/30/17 Warfarin [Coumadin] 2.5 mg PO DAILY 09/30/17 hydrocodone 5 mg-acetaminophen 325 mg tablet 1 tab PO Q12H PRN tab 10/31/17 lorazepam 0.5 mg tablet 0.5 mg PO BID PRN tab 10/31/17 carvedilol 25 mg tablet 12.5 mg PO BID tab 02/01/18 Warfarin Sodium 5 mg PO HOLDER 02/25/18 Aspirin E.C. [Ecotrin] 81 mg PO DAILY@0800 tablet 02/27/18 Isosorbide Mononitrate [Imdur] 30 mg PO DAILY #30 tablet 02/27/18 Ranolazine [Ranexa] 500 mg PO BID #60 tablet 02/27/18 The following prescriptions were given: Isosorbide Mononitrate [Imdur] 30 mg PO DAILY #30 tablet Ranolazine [Ranexa] 500 mg PO BID #60 tablet Primary Care Physician: Andrew Gomez III, MD [Primary Care Provider] - Please follow up with your Primary Care Physician in: Follow-up within 2-3 days to review admission, review INR results. Test Results: Test results from this visit will be discussed in further detail at your follow- up appointment, if applicable. Please Follow Up With: Tex Coker MD When: Please follow-up with Cardiology per their discretion/recommendation. Proposed Discharge Date: 02/27/18
--- NOTE | 2018-02-27 08:33 | DS.PCM_ITS ---
Discharge Date and Diagnosis - Problem List Patient Problems: Active and Suspected Problems (Last Reviewed 02/25/18 @ 08:18 by Boni Renae MD) Chest pain, unspecified (Acute) NSTEMI (non-ST elevated myocardial infarction) (Acute) Date of Admission: 02/25/18 Date of Discharge: 02/27/18 - Primary Discharge Diagnosis Active and Suspected Problems (Last Reviewed 02/25/18 @ 08:18 by Boni Renae MD) (1) Chest Pain w/ Acute NSTEMI w/ multivessel coronary disease with MANCERA to LAD patent, SVG to OM occluded, SVG to IR occluded, SVG sequential graft to RCA PDA occluded, left to right collateral flow and right to left collateral (2) CAD s/p recent CABG x 5, MANCERA to LAD, SVG to Ramus, SVG to PDA, SVG to PLV, SVG to OM, PV isolation, left atrial appendage excision 09/21/17 and prior to this PCI w/ stent to prox/distal RCA 2008 and to mid RCA and PCI of the PDA 04/20/15 (3) Diabetes mellitus type II (4) Obesity (5) Hyperlipidemia (6) Hypertension (7) PAF (8) PAD - Secondary Discharge Diagnosis Chronic Problems (Last Reviewed 02/25/18 @ 08:18 by Boni Renae MD) Renal insufficiency (Chronic) CAD (coronary artery disease) (Chronic) Presence of stent in coronary artery (Chronic) PCI/stent to prox/distal RCA 2008; PCI/Stent to mid RCA and PCi of the PDA 04/20/15 Atherosclerotic heart disease of [place] coronary artery without angina pectoris (Chronic) PCI/stent to prox/distal RCA 2008; PCI/Stent to mid RCA and PCi of the PDA 04/20/15; CABG x5- MANCERA to LAD, SVG to Ramus, SVG to PDA, SVG to PLV, SVG to OM, PV isolation, left atrial appendage excision 09/21/17 Paroxysmal atrial fibrillation (Chronic) H/O coronary artery bypass surgery (Chronic 09/21/17) CABG x5- MANCERA to LAD, SVG to Ramus, SVG to PDA, SVG to PLV, SVG to OM, PV isolation, left atrial appendage excision 09/21/17 Type 2 diabetes mellitus (Chronic) Hypertension (Chronic) PAD (peripheral artery disease) (Chronic) PCI/Stent L fem artery 11/26/07; PCI Rt fem 02/17/08; PCI Left pop and sup femoral artery 03/09/10; PCI Rt pop and Rt SFA 05/11/10; PCI bilat LE arteriogram w/angioplasty 10/03/10; PCI/LLE 07/17/11 HLD (hyperlipidemia) (Chronic) Hospital Course and Treatment Dr. Coker Cardiology Operations: None Procedures: 2-D Echocardiogram, Cardiac catheterization, EKG Summary of Care Provided: The patient is a 62 y/o M w/ PMHx: PAF, HTN, HLD, CAD s/p CABG x 5, Obesity, GERD, PAF, PAD who presented to the [facility] ED on 02/25/18 with history of onset progressively worsening substernal chest discomfort, worse with exertion with radiation to the left shoulder times 48 hours, pressure-like and aching in sensation. EKG in ED w/ acute evidence of ischemia, CXR w/ no acute process. Trop elevated, initially 0.020-->1.010-->1.680-->1.380. Admitted to PCU, maintain on a monitored bed, Continue medical management w/ plavix, BB, statin, addition of imdur and ranexa per Cardiology w/ AM FLP obtained as noted. Cardiology consulted, 02/26/18 cardiac catheterization as INR 1.6 s/p reversal coumadin. Cardiac catheterization w/ elevated LV end-diastolic pressure, segmented LV systolic dysfunction noted to be mild, LVEF 50%, [place] multivessel coronary disease with MANCERA to LAD patent, SVG to OM occluded, SVG to IR occluded, SVG sequential graft to RCA PDA occluded, left to right collateral flow and right to left collateral for present with recognitions for continued aggressive medical therapy. Per discussion with Dr. Coker restarted patient coumadin 02/27/18 with INR trending outpatient. ECHO w/ segmental dysfunction with preserved EF, EF 60%, postoperative septal motion, trivial MVI, trivial TVI, mild focal AV calcification, diastolic function indeterminate. Patient work parameters and exercise parameters per Cardiology discretion. Patient discharged to home with requested follow-up with his PCP to review INR 02/28/18 with restart coumadin in addition to Cardiology per their discretion. DAY OF DISCHARGE PROGRESS NOTE: Subjective: Patient without acute event overnight per self and nursing report. Patient denies any any recurrent chest discomfort or dyspnea. Discussed medications at length this morning as Ranexa despite prior authorization with $66 per month noted to be too costly for patient at this time. Coumadin restarted this AM w/ advised INR follow-up with PCP 02/28/18. Patient denies fever, chills, nausea, emesis, abdominal pain, recurrent or worsened chest pain or dyspnea. Patient agreeable to discharge to home. Patient will be discharged with follow-up with primary care physician within 3-5 days in addition to follow-up with Cardiology per their discretion. Advised mild exercise until re- evaluation per Cardiology and clearance. Discussed groin care. Allowance return to work the following Sunday. Objective: T 97.4, heart rate 59, BP 134/84, respiratory rate 16, 95% on room air. Physical Examination: General: awake, alert, oriented x 3 and cooperative, seated upright in the bed, NAD. Skin: normal color, turgor, no icterus, cyanosis, R groin w/ dressing in place, no bleeding. HEENT: AT/NC, EOMI, PERRLA, MMM. Lungs: CTA bilaterally, moderate effort, mild decrease BL bases, no rales, ronchi or wheezing; Heart: Regular rate and rhythm; no gallop, rub audible. Abdomen: soft, obese, NTTP, ND, normal BS. Extremities: no cyanosis, clubbing, or edema. Neurological: patient awake, alert, oriented x 3; cognitive function appears intact upon questioning,; pupils equally reactive to light and accomodation; cranial nerves II-XII grossly normal, moving all 4 extremities, strength appropriate. Psychiatric: affect appears normal, no acute evidence of depressive or anxiety feelings. Assessment and Plan: Please see hospital summary above. Patient Problems: Active and Suspected Problems (Last Reviewed 02/25/18 @ 08:18 by Boni Renae MD) Chest pain, unspecified (Acute) NSTEMI (non-ST elevated myocardial infarction) (Acute) - Physical Exam Vital Signs Temp Pulse Resp BP Pulse Ox 97.4 F L 72 16 134/84 H 96 02/27/18 03:45 02/27/18 07:05 02/27/18 03:45 02/27/18 03:45 02/27/18 07:24 Oxygen Flow Rate (L/min) 2 Oxygen Delivery Method Room Air Weight: 229 lb 4.492 oz Body Mass Index (BMI) 34.8 Intake and Output for Last 24 Hours 02/25/18 02/26/18 02/27/18 23:59 23:59 23:59 Intake Total 1485 / 1485 2345 / 2345 385 / 385 Balance 1485 / 1485 2345 / 2345 385 / 385 Laboratory Tests Past 24 Hrs 02/27/18 02/27/18 05:33 05:33 WBC 8.0 RBC 4.76 Hgb 13.6 Hct 42.5 MCV 89.3 MCH 28.6 MCHC 32.0 RDW 15.1 H RDW Differential 49.3 H Plt Count 176 MPV 10.0 Immature Gran % (Auto) 0.400 Neut % (Auto) 53.3 Lymph % (Auto) 34.3 Graves % (Auto) 9.6 Eos % (Auto) 2.2 Baso % (Auto) 0.2 Absolute Neuts (auto) 4.3 Absolute Lymphs (auto) 2.75 Total Counted Not Reportable Sodium 138 Potassium 4.1 Chloride 104 Carbon Dioxide 29.0 Anion Gap 5 BUN 15 Creatinine 1.22 Estim Creat Clear Calc 59.96 Est GFR (MDRD) Af Amer 77 Est GFR (MDRD) Non-Af 64 BUN/Creatinine Ratio 12.3 Glucose 135 H Calcium 8.4 L POC Glucose 02/27/18 02/26/18 02/26/18 06:42 21:49 16:29 POC Glucose 128 H 150 H 193 H 02/26/18 11:41 POC Glucose 114 H Discharge Activity: - - Activity parameters per Cardiology. Return to work on:: 03/04/18 - Work parameters per Cardiology May resume sexual activity in: 1-2 weeks Weight Bearing Status: Weight bearing as tolerated Call your doctor if your incision/area has: Continuous Slow Oozing, Sudden Increased Bleeding, Increased Pain/ Swelling, Increased Redness, Foul Smelling Discharge, Swelling at the incision site Call your doctor if you observe: Fever of 101 or Higher, Inability to urinate, Inability to have a bowel movement, Shortness of breath, Dizziness, Fainting spells, Chest pain, Uncontrolled pain Home Medications: Medications to take at Discharge Clopidogrel Bisulfate [Plavix] 75 mg PO DAILY 02/07/13 Cholecalciferol (Vitamin D3) [Vitamin D] 5,000 unit PO DAILY 01/16/14 Atorvastatin Calcium [Lipitor] 80 mg PO QHS 07/05/15 Dulaglutide [Trulicity] 1.5 mg SQ QWEEK 09/09/17 Magnesium Oxide 500 mg PO DAILY 09/09/17 Insulin Glargine,Hum.rec.anlog [Lantus] 30 unit SQ QHS 09/30/17 Warfarin [Coumadin] 2.5 mg PO DAILY 09/30/17 hydrocodone 5 mg-acetaminophen 325 mg tablet 1 tab PO Q12H PRN tab 10/31/17 lorazepam 0.5 mg tablet 0.5 mg PO BID PRN tab 10/31/17 carvedilol 25 mg tablet 12.5 mg PO BID tab 02/01/18 Warfarin Sodium 5 mg PO HOLDER 02/25/18 Aspirin E.C. [Ecotrin] 81 mg PO DAILY@0800 tablet 02/27/18 Isosorbide Mononitrate [Imdur] 30 mg PO DAILY #30 tablet 02/27/18 Nitroglycerin [Nitrostat] 0.4 mg SUBLINGUAL Q5M PRN #10 tablet 02/27/18 Ranolazine [Ranexa] 500 mg PO BID #60 tablet 02/27/18 Following Prescrptions Were Given to Patient: Isosorbide Mononitrate [Imdur] 30 mg PO DAILY #30 tablet Nitroglycerin [Nitrostat] 0.4 mg SUBLINGUAL Q5M PRN #10 tablet PRN Reason: Chest Pain Ranolazine [Ranexa] 500 mg PO BID #60 tablet Primary Care Physician: Andrew Gomez III, MD [Primary Care Provider] - Please follow up with your Primary Care Physician in: Follow-up within 2-3 days to review admission, review INR results. Please Follow Up With: Tex Coker MD When: Please follow-up with Cardiology per their discretion/recommendation. Patient Instructions: Symptoms of a Heart Attack, First Aid: Heart Attacks, Recognizing a Heart Attack or Angina, Understanding Coronary Artery Disease (CAD), Discharge Instructions for Heart Attack Disposition: Home Minutes spent on discharge:: 35 Patient Condition:: Fair Medical Necessity - Tobacco Use Smoking Status: Never smoker Meaningful Use Info Meaningful Use Diagnoses (Choose all that apply): AMI - AMI Aspirin given w/in 24hrs of arrival?: Yes ASA at discharge?: Yes Statins at discharge?: Yes Leonard/ARB at discharge?: No Reason Leonard/ARB not ordered:: Allergy Beta [place] at discharge?: Yes Done w/ Acute IA measure.: Yes Code Visit Inpatient E&M: 36611 Disch Hosp
[2018-02-27 09:33] VITALS: BP 146/85; PULSE 63; RESP 16; TEMP 36.8; O2SAT 96
[2018-02-27] MEDS: Ranolazine 500 MG Tablet PO (09:52)
[2018-02-27] MEDS: Isosorbide Mononitrate 30 MG Tablet PO (09:52)
[2018-02-27] MEDS: Carvedilol 12.5 MG Tablet PO (09:52)
[2018-02-27] MEDS: Magnesium Oxide 400 MG Tablet PO (09:52)
--- NOTE | 2018-02-27 10:03 | CASEMGMT ---
Pt placed on Ranexa and per [facility] retail pharmacy, Ranexa is not on pt formulary for Rx insurance and the cost is going to be over $400. Call to [facility] and prior auth obtained and cost down to $136.86 and pt provided with info for Ranexa coupon card at this time, which would bring cost down to about $66/month. Dr. Khanna informed pt at this time and pt states is still unable to afford this. Per Dr. Khanna, pt will just continue Imdur at this time. Vidal CORMIER CM
--- NOTE | 2018-02-27 10:38 | PHA.DC.MC ---
Pharmacy Service has performed discharge medication reconciliation and counseling for this patient. The patient's discharge medication list was reviewed for discrepancies and discrepancies were resolved. The patient was counseled on the following discharge medications and changes in medications for homegoing were reviewed. The Reason for Use, instructions for use, and potential side effects were reviewed for all new medications. The patient's questions regarding all of their medications were answered. The patient was able to verbally demonstrate an understanding of their discharge medications. Home Medications Clopidogrel Bisulfate [Plavix] 75 mg PO DAILY 02/07/13 Cholecalciferol (Vitamin D3) [Vitamin D] 5,000 unit PO DAILY 01/16/14 Atorvastatin Calcium [Lipitor] 80 mg PO QHS 07/05/15 Dulaglutide [Trulicity] 1.5 mg SQ QWEEK 09/09/17 Magnesium Oxide 500 mg PO DAILY 09/09/17 Insulin Glargine,Hum.rec.anlog [Lantus] 30 unit SQ QHS 09/30/17 hydrocodone 5 mg-acetaminophen 325 mg tablet 1 tab PO Q12H PRN tab 10/31/17 lorazepam 0.5 mg tablet 0.5 mg PO BID PRN tab 10/31/17 carvedilol 25 mg tablet 12.5 mg PO BID tab 02/01/18 Warfarin Sodium 5 mg PO HOLDER 02/25/18 Aspirin E.C. [Ecotrin] 81 mg PO DAILY@0800 tablet 02/27/18 Isosorbide Mononitrate [Imdur] 30 mg PO DAILY #30 tablet 02/27/18 Nitroglycerin [Nitrostat] 0.4 mg SUBLINGUAL Q5M PRN #10 tablet 02/27/18 Ranolazine [Ranexa] 500 mg PO BID #60 tablet 02/27/18 Warfarin [Coumadin] 2.5 mg PO DAILY #30 tablet 02/27/18 Warfarin [Coumadin] 2.5 mg PO MoTuWeThFrSa@1700 #30 tablet 02/27/18
[2018-02-27 11:08] VITALS: PULSE 71
--- NOTE | 2018-02-27 11:25 | PN.CARD_ITS ---
Subjectve: The patient is awake and alert. He has been up and ambulating. He denies any obvious recurrent symptoms with ambulation. Objective: Vital Signs Temp Pulse Resp BP Pulse Ox 98.2 F 63 16 146/85 H 96 02/27/18 09:33 02/27/18 09:33 02/27/18 09:33 02/27/18 09:33 02/27/18 09:33 Oxygen Flow Rate (L/min) 2 Oxygen Delivery Method Room Air Weight: 229 lb 4.492 oz Body Mass Index (BMI) 34.8 Intake and Output for Last 24 Hours 02/25/18 02/26/18 02/27/18 23:59 23:59 23:59 Intake Total 1485 / 1485 2345 / 2345 385 / 385 Balance 1485 / 1485 2345 / 2345 385 / 385 General: Awake, Alert, Oriented x 3, Cooperative, No Acute Distress HEENT: Atraumatic, Normocephalic, PERRL, EOMI, Sclera Non Icteric Oral: Moist Mucosa Neck: Supple, Good ROM, No JVD Lungs: Clear to auscultation Cardiovascular: Regular Rhythm, Normal S1, Normal S2 Vascular: Normal Femoral Pulses Abdomen: Bowel Sounds Present, Soft, Non Tender Extremities: Trace RLE Edema, Trace LLE Edema Neurological: No Focal Motor or Sensory Deficit Psych/Mental Status: Appropriate, Normal Affect 02/27/18 05:33: WBC 8.0, RBC 4.76, Hgb 13.6, Hct 42.5, MCV 89.3, MCH 28.6, MCHC 32.0, RDW 15.1 H, RDW Differential 49.3 H, Plt Count 176, MPV 10.0, Immature Gran % (Auto) 0.400, Neut % (Auto) 53.3, Lymph % (Auto) 34.3, [place] % (Auto) 9.6, Eos % (Auto) 2.2, Baso % (Auto) 0.2, Absolute Neuts (auto) 4.3, Total Counted Not Reportable 02/27/18 05:33: Sodium 138, Potassium 4.1, Chloride 104, Carbon Dioxide 29.0, Anion Gap 5, BUN 15, Creatinine 1.22, Est GFR (MDRD) Af Amer 77, Est GFR (MDRD) Non-Af 64, BUN/Creatinine Ratio 12.3, Glucose 135 H, Calcium 8.4 L Rhythm: Sinus rhythm Medical Necessity - Tobacco Use Smoking Status: Never smoker Assessment/Plan 1. Non-ST segment elevation RI The patient presents with symptoms concerning for angina pectoris. He has had objective findings with abnormal cardiac enzymes. His clinical scenario and objective findings are concerning for an acute non-ST segment elevation RI. At the present time he will need to continue medical management. Thus the patient has been placed on additional medical therapy with nitrates. He was asked to consider additional medical therapy with Ranexa. However he states based upon finances he will not be able to afford that particular medication at this time. Is unclear as to whether or not he could be considered a candidate for EECP therapy noting his peripheral arterial occlusive disease of the lower extremities. He did not appear to be an ideal candidate for further percutaneous intervention at this time. 2. CAD status post PCI status post CABG The present time he is going to continue medical management. His clinical course will need to be followed as it is unclear as to how he will respond to medications and what symptoms he may or may not have and how this will impact his ability to work versus not being able to work, etc. 4. Hyperlipidemia The patient will continue lipid-lowering therapy as deemed appropriate. 5. Hypertension The patient will continue antihypertensive therapy as deemed appropriate. 5. Diabetes mellitus The patient will continue under the care of internal medicine. 6. Renal insufficiency The patient's creatinine level was elevated upon evaluation in the emergency department. It has improved. He will continue to be followed with respect to his renal function. Comment: The patient's case has been discussed and reviewed with the patient and his spouse, and the [facility] staff. This note was generated using a voice recognition system and there may be incorrect words, spelling or punctuation that were not noted when reviewing the office note prior to saving.
--- NOTE | 2018-02-28 16:01 | CASEMGMT ---
GENIA PETERSON Discharge F/U Phone Call LACE: 12 Strata: 4 Discharge date: 02/27/18 Call date: 02/28/18 Call time: [id number] Duration: 2 minutes Admission dx: NSTEMI, Chest pain Pt states has been doing 'pretty good' since discharge. Pt states no questions regarding discharge planning or medications at this time. Pt states has f/u appt's scheduled and plans to keep. Pt states no suggestions for [facility] at this time. Pt states no further questions/concern/needs at this time. [place] GENIA PETERSON
--- OUTSIDE RECORDS SUMMARY | 2018-04-20 02:12 | XMS RPT_ITS ---
:1955 Author Organization OHIP Support Name Relationship Address Phone ROMELIA DASREE/JANI Unavailable [address] + [place] [address] R Unavailable Unavailable Unavailable ROTHEMUND, KATIE Unavailable [address] + [place] [address] PIPPA NATIVIDAD/JANI Unavailable [address] + [place] [address] R Unavailable Unavailable Unavailable ROTHEMUND, KATIE Unavailable [address] + [place] [address] PIPPA NATIVIDAD/JANI Unavailable [address] + [place] [address] R Unavailable Unavailable Unavailable ROTHEMUND, KATIE Unavailable [address] + [place] [address] PIPPA NATIVIDAD/JANI Unavailable [address] + [place] [address] R Unavailable Unavailable Unavailable ROTHEMUND, KATIE Unavailable [address] + [place] [address] PIPPA NATIVIDAD/JANI Unavailable [address] + [place] [address] R Unavailable Unavailable Unavailable ROTHEMUND, KATIE Unavailable [address] + [place] [address] PIPPA NATIVIDAD/JANI Unavailable [address] + [place] [address] R Unavailable Unavailable Unavailable ROTHEMUND, KATIE Unavailable [address] + [place] [address] PIPPA NATIVIDAD/JANI Unavailable [address] + [place] [address] R Unavailable Unavailable Unavailable ROTHEMUND, KATIE Unavailable [address] + [place] [address] PIPPA, NATIVIDAD/JANI Unavailable [address] + [place] [address] R Unavailable Unavailable Unavailable ROTHEMUND, KATIE Unavailable [address] + [place] [address] PIPPA, NATIVIDAD/JANI Unavailable [address] + [place] [address] R Unavailable Unavailable Unavailable ROTHEMUND, KATIE Unavailable [address] + [place] [address] PIPPA, NATIVIDAD/JANI Unavailable [address] + [place] [address] R Unavailable Unavailable Unavailable ROTHEMUND, KATIE Unavailable [address] + [place] [address] PIPPA, NATIVIDAD/JANI Unavailable [address] + [place] [address] R Unavailable Unavailable Unavailable ROTHEMUND, KATIE Unavailable [address] + [place] [address] PIPPA, NATIVIDAD/JANI Unavailable [address] + [place] [address] R Unavailable Unavailable Unavailable ROTHEMUND, KATIE Unavailable [address] + [place] [address] PIPPA, NATIVIDAD/JANI Unavailable [address] + [place] [address] R Unavailable Unavailable Unavailable ROTHEMUND, KATIE Unavailable [address] + [place] [address] PIPPA, NATIVIDAD/JANI Unavailable [address] + [place] [address] R Unavailable Unavailable Unavailable ROTHEMUND, KATIE Unavailable [address] + [place] [address] PIPPA, NATIVIDAD/JANI Unavailable [address] + [place] [address] R Unavailable Unavailable Unavailable ROTHEMUND, KATIE Unavailable [address] + [place] [address] PIPPA, NATIVIDAD/JANI Unavailable [address] + [place] [address] R Unavailable Unavailable Unavailable ROTHEMUND, KATIE Unavailable [address] + [place] [address] PIPPA, NATIVIDAD/JANI Unavailable [address] + [place] [address] R Unavailable Unavailable Unavailable ROTHEMUND, KATIE Unavailable [address] + [place] [address] PIPPA, NATIVIDAD/JANI Unavailable [address] + [place] [address] R Unavailable Unavailable Unavailable ROTHEMUND, KATIE Unavailable [address] + [place] [address] PIPPA, NATIVIDAD/JANI Unavailable [address] + [place] [address] R Unavailable Unavailable Unavailable ROTHEMUND, KATIE Unavailable [address] + [place] [address] PIPPA, NATIVIDAD/JANI Unavailable [address] + [place] [address] R Unavailable Unavailable Unavailable ROTHEMUND, KATIE Unavailable [address] + [place] [address] PIPPA, NATIVIDAD/JANI Unavailable [address] + [place] [address] R Unavailable Unavailable Unavailable ROTHEMUND, KATIE Unavailable [address] + [place] [address] PIPPA, NATIVIDAD/JANI Unavailable [address] + [place] [address] R Unavailable Unavailable Unavailable ROTHEMUND, KATIE Unavailable [address] + [place] [address] PIPPA, NATIVIDAD/JANI Unavailable [address] + [place] [address] R Unavailable Unavailable Unavailable ROTHEMUND, KATIE Unavailable [address] + [place] [address] PIPPA, NATIVIDAD/JANI Unavailable [address] + [place] [address] R Unavailable Unavailable Unavailable ROTHEMUND, KATIE Unavailable [address] + [place] [address] PIPPA, NATIVIDAD/JANI Unavailable [address] + [place] [address] R Unavailable Unavailable Unavailable ROTHEMUND, KATIE Unavailable [address] + [place] [address] PIPPA, NATIVIDAD/JANI Unavailable [address] + [place] [address] R Unavailable Unavailable Unavailable ROTHEMUND, KATIE Unavailable [address] [phone] [place] [address] PIPPA, NATIVIDAD/JANI Unavailable [address] + [place] [address] R Unavailable Unavailable Unavailable ROTHEMUND, KATIE Unavailable [address] + [place] [address] PIPPA, NATIVIDAD/JANI Unavailable [address] + [place] [address] R Unavailable Unavailable Unavailable ROTHEMUND, KATIE Unavailable [address] [phone] [place] [address] PIPPA, NATIVIDAD/JANI Unavailable [address] + [place] [address] R Unavailable Unavailable Unavailable ROTHEMUND, KATIE Unavailable [address] [phone] [place] [address] PIPPA, NATIVIDAD/JANI Unavailable [address] + [place] [address] R Unavailable Unavailable Unavailable ROTHEMUND, KATIE Unavailable [address] + [place] [address] PIPPA, NATIVIDAD/JANI Unavailable [address] + [place] [address] R Unavailable Unavailable Unavailable ROTHEMUND, KATIE Unavailable [address] + [place] [address] PIPPA, NATIVIDAD/JANI Unavailable [address] + [place] [address] R Unavailable Unavailable Unavailable ROTHEMUND, KATIE Unavailable [address] + [place] [address] PIPPA, NATIVIDAD/JANI Unavailable [address] + [place] [address] R Unavailable Unavailable Unavailable ROTHEMUND, KATIE Unavailable [address] + [place] [address] NATIVIDAD DAS/JANI Unavailable [address] + [place] [address] R Unavailable Unavailable Unavailable ROTHEMUND, KATIE Unavailable [address] + [place] [address] Care Team Providers Name Role Phone [facility], [place] [facility] Unavailable Paintsil, [place] Admitting Unavailable [place], Tex Consulting Unavailable Sementi, Jennifer Attending Unavailable Paint[place], [place] Admitting Unavailable Paint[place], [place] Attending Unavailable Cebul III, [place] [facility] Unavailable [place], [place] Consulting Unavailable Paint[place], [place] Admitting Unavailable Mood[place], Tex Attending Unavailable Cebul III, [place] [facility] Unavailable [place], Tex Consulting Unavailable Paint[place], [place] Consulting Unavailable Paint[place], [place] Admitting Unavailable MoodispaTex urbina Attending Unavailable Cebul III, [place] [facility] Unavailable [place], Tex Consulting Unavailable Sementi, Jennifer Consulting Unavailable [place], [place] Admitting Unavailable DanteMika karimi Attending Unavailable Cebul III, [place] [facility] Unavailable [place], Tex Consulting Unavailable Sementi, Jennifer Consulting Unavailable [place], [place] Admitting Unavailable DanteMika karimi Attending Unavailable Cebul III, [place] [facility] Unavailable [place], Tex Consulting Unavailable Sementi, Jennifer Consulting Unavailable [place], [place] Admitting Unavailable MoodispaTex urbina Attending Unavailable Cebul III, [place] [facility] Unavailable [place], [place] Consulting Unavailable Sementi, Jennifer Consulting Unavailable [place], [place] Admitting Unavailable MoodispawTex Attending Unavailable Cebul III, [place] [facility] Unavailable [place], Tex Consulting Unavailable Sementi, Jennifer Consulting Unavailable [place], [place] Admitting Unavailable DanteMika karimi Attending Unavailable Cebul III, [place] [facility] Unavailable [place], [place] Consulting Unavailable Sementi, Jennifer Consulting Unavailable Cebul III, [place] [facility] Unavailable Emilee Noe Attending Unavailable Emilee Noe Attending Unavailable Emilee Noe Referring Unavailable Cebul III, [place] [facility] Unavailable MoodispaTex urbina Attending Unavailable Cebul III, Mian Referring Unavailable Cebul III, Mian Primary Care Unavailable Moodispaw, Tex Attending Unavailable MoodispawTex Referring Unavailable Cebul III, Mian Primary Care Unavailable Agustín Rawls Consulting Unavailable Cebul III, Mian Consulting Unavailable OwusuSana Attending Unavailable Owusu, Sana Attending Unavailable MoodispawTex Attending Unavailable Cebul III, Mian Referring Unavailable Cebul III, Mian Primary Care Unavailable Fermín Carter PA-C Attending Unavailable Cebul III, Mian Primary Care Unavailable Fermín Carter PA-C Referring Unavailable [place]isp[place], Tex Attending Unavailable MoodispaTex urbina Referring Unavailable Cebul III, Mian Primary Care Unavailable Moodisgumaro, Tex Attending Unavailable MoodisTex naik Referring Unavailable Cebul III, Mian Primary Care Unavailable Moodispaciara, Tex Attending Unavailable MoodispaTex urbina Referring Unavailable Cebul III, Mian Primary Care Unavailable Moodispaciara, Tex Attending Unavailable Moodispaciara, Tex Referring Unavailable [place], Tex Attending Unavailable MoodisTex naik Referring Unavailable Cebul III, Mian Primary Care Unavailable Moodisgumaro, Tex Attending Unavailable MoodisTex naik Referring Unavailable Cebul III, Mian Primary Care Unavailable Moodisgumaro, Tex Attending Unavailable Cebul III, Mian Referring Unavailable Emory Disla D.O. Attending Unavailable Cebul III, Mian Referring Unavailable MoodispaTex urbina Attending Unavailable MoodisTex naik Referring Unavailable Cebul III, Mian Primary Care Unavailable Cebul III, Mian Primary Care Unavailable Boni Renae Admitting Unavailable Valery Khanna Attending Unavailable Tex Coker Consulting Unavailable AgyeBoni cortes Admitting Unavailable AgyepongBoni Attending Unavailable Cebul III, Mian Primary Care Unavailable MoodisTex naik Consulting Unavailable Valery Khanna Consulting Unavailable Boni Renae Admitting Unavailable MoodisTex naik Attending Unavailable Cebul III, Mian Primary Care Unavailable Tex Coker Consulting Unavailable Valery Khanna Consulting Unavailable Emory Disla D.O. Attending Unavailable Cebul III, Mian Primary Care Unavailable Emory Disla D.O. Referring Unavailable AgBoni au Admitting Unavailable MoodisTex naik Attending Unavailable Cebul III, Mian Primary Care Unavailable Tex Coker Consulting Unavailable White, Valery Consulting Unavailable Agyepong, Boni Admitting Unavailable White, Valery Attending Unavailable Cebul III, Mian Primary Care Unavailable [place], Tex Consulting Unavailable White, Valery Consulting Unavailable Agyepong, Boni Admitting Unavailable White, Valery Attending Unavailable Cebul III, Mian Primary Care Unavailable [place], Tex Consulting Unavailable White, Valery Consulting Unavailable Agyepong, Boni Admitting Unavailable [place], Tex Attending Unavailable Cebul III, Mian Primary Care Unavailable [place], Tex Consulting Unavailable White, Valery Consulting Unavailable CEBUL III, MIAN A Attending Unavailable CEBUL III, MIAN A Referring Unavailable JABERAMANDO Admitting Unavailable UNAI, SHINYA Attending Unavailable PÉREZ, SHIRA (FISHING CAPTAIN) Referring Unavailable PÉREZ, SHIRA (FISHING CAPTAIN) Referring Unavailable PÉREZ, SHIRA (FISHING CAPTAIN) Referring Unavailable PÉREZ, SHIRA (FISHING CAPTAIN) Referring Unavailable UNAI, SHINYA Referring Unavailable UNAI, SHINYA Referring Unavailable UNAI, SHINYA Referring Unavailable UNAI, SHINYA Referring Unavailable ALAN BORRERO (ASSISTANT STRENGTH COACH) Attending Unavailable UNAI, SHINYA Referring Unavailable CEBUL III, MIAN A Attending Unavailable ALAN BORRERO (ASSISTANT STRENGTH COACH) Referring Unavailable CEBUL III, MIAN A Attending Unavailable CEBUL III, MIAN A Referring Unavailable CEBUL III, MIAN A Referring Unavailable CEBUL III, MIAN A Referring Unavailable CEBUL III, MIAN A Referring Unavailable CEBUL III, MIAN A Referring Unavailable CEBUL III, MIAN A Referring Unavailable CEBUL III, MIAN A Referring Unavailable CEBUL III, MIAN A Attending Unavailable JOSE ARNOLD Attending Unavailable JOES ARNOLD Referring Unavailable PROBLEMS PROBLEMS DATE TYPE CONDITION / CODE ATTENDING STATUS SOURCE 02/25/2018 Unknown I25.10 - [place], Active [place] Atherosclerotic [facility] heart disease of [facility] [place] coronary Repository artery without angina pectoris / I25.10(ICD-10) 02/21/2018 Unknown G47.33 - Obstructive Emory Brown, Active [place] sleep apnea (adult) [facility] Hospital G47.33(ICD-10) Repository 12/25/2017 Unknown M25.551 - Pain in [place], Active [place] right hip / Fermín YOUNGBLOOD [facility] M25.551(ICD-10) Hospital Repository 10/31/2017 Unknown Z95.1 - Presence of [place], Active [place] aortocoronary bypass [facility] graft / Hospital Z95.1(ICD-10) Repository 10/31/2017 Unknown I10 - Essential [place], Active [place] (primary) [facility] hypertension / Hospital I10(ICD-10) Repository 10/31/2017 Unknown Z95.5 - Presence of [place], Active [place] coronary angioplasty [facility] implant and graft / Hospital Z95.5(ICD-10) Repository 10/25/2017 Unknown I73.9 - Peripheral [place], Active [place] vascular disease, [facility] unspecified / Hospital I73.9(ICD-10) Repository 10/25/2017 Unknown Z98.61 - Coronary [place], Active [place] angioplasty status / [facility] Z98.61(ICD-10) Hospital Repository 10/25/2017 Unknown E78.5 - [place], Active [place] Hyperlipidemia, [facility] unspecified / Hospital E78.5(ICD-10) Repository 09/27/2017 Active Type 2 diabetes SANDALAKIS, Active [place] mellitus with ANDEGONI ([facility] Main diabetic peripheral [place] angiopathy without Repository gangrene / E11.51(ICD-10) 09/27/2017 Active Chronic kidney SANDALAKIS, Active [place] disease, stage 3 ANDEGONI ([facility] Main (moderate) / [place] N18.3(ICD-10) Repository 09/27/2017 Active Atelectasis / SANDALAKIS, Active [place] J98.11(ICD-10) ANDEGONI ([facility]EN[facility] Clinic Main [place] Repository 09/27/2017 Active Unspecified atrial SANDALAKIS, Active [place] fibrillation / ANDEGONI (ASSISTANT STRENGTH COACH) Clinic Main I48.91(ICD-10) [place] Repository 10/04/2017 Active Presence of SANDALAKIS, Active [place] aortocoronary bypass ANDEGONI ([facility] STREN[facility] CO[facility]) Clinic Main graft / [place] Z95.1(ICD-10) Repository 10/04/2017 Active Encounter for NA Active [place] [facility]-up [facility] Main examination after [place] completed treatment Repository for conditions other than malignant neoplasm / Z09(ICD-10) 10/04/2017 Active Essential (primary) NA Active [place] hypertension / Clinic Main I10(ICD-10) [place] Repository 10/04/2017 Active Other intermediate manager NA Active [place] (current) drug Clinic Main therapy / [place] Z79.899(ICD-10) Repository 10/04/2017 Active Encounter for NA Active [place] screening for other [facility] Main viral diseases / [place] Z11.59(ICD-10) Repository 10/04/2017 Active Encounter for NA Active [place] screening for [facility] Main malignant neoplasm [place] of prostate / Repository Z12.5(ICD-10) 10/04/2017 Active Shortness of breath NA Active [place] / R06.02(ICD-10) Clinic Main [place] Repository 10/04/2017 Active Paroxysmal atrial NA Active [place] fibrillation / Clinic Main I48.0(ICD-10) [place] Repository 09/27/2017 Active Other acute UNAI, SHINYA Active [place] postprocedural pain [facility] Main / G89.18(ICD-10) [place] Repository 09/13/2017 Active Atherosclerotic UNAI, SHINYA Active [place] heart disease of [facility] Main [place] coronary [place] artery without Repository angina pectoris / I25.10(ICD-10) 09/20/2017 Unknown I48.91 - Unspecified Mika Howell Active [place] atrial fibrillation Community / I48.91(ICD-10) Hospital Repository 09/07/2017 Admitting Unknown / [place], Active [facility] UNK(Unknown) [facility] Repository PROCEDURES PROCEDURES No Procedure Records FoundRESULTS RESULTS PROGRESS Observed: 03/05/2018 Status: COMPLETED Source: [place] 11:19 AM [facility] REPOSITORY HNO ID: [id number] Author: Mian Wilburn III Service: (none) Author Type: Physician Type: Progress Notes Filed: 03/05/2018 12:46 PM Note Text: Visit for Transitional Care Management CC: Noman is a 62 year old male following 6, days after the Hospital/Retirement Discharge. [facility] and cardio Records reviewed. HPI: developed exertional chest pain when walking down down hallway at [facility]. NSTEMI. Had CABG 5 in August 2017, but heart cath 02/26/18 =closure of 4 of the 5 grafts. Now on imdur, ranexa, ASA. Still has mild ant chest pain. Not exertional. Mild CENTENO due to imdur. He plans to start him right a progressive exercise program and to return to work on 03/12/18. He hopes to limit work starting in March and possibly retire. 2. He does admit to feeling somewhat depressed as he has some financial stresses and he was planning to work longer than at present. All of the male members of his family have prior to his present age. He is not suicidal and has strong support from his PAST MEDICAL HISTORY: PAST MEDICAL HISTORY Diagnosis Date - Acute renal failure ([facility]) - Atherosclerotic heart disease of [place] coronary artery without angina pectoris - CAD (coronary artery disease) - Diabetes mellitus ([facility]) 11/17/2010 - Essential hypertension, benign - GERD (gastroesophageal reflux disease) 11/17/2010 - H/O percutaneous transluminal coronary angioplasty - Heart failure with preserved ejection fraction ([facility]) - History of coronary artery bypass graft - Hyperlipidemia - Low testosterone 12/12/2011 - Obesity - ARNOLDO (obstructive sleep apnea) - PAD (peripheral artery disease) ([facility]) - Paroxysmal atrial fibrillation ([facility]) - Presence of stent in coronary artery - Raynaud's syndrome - Shift work sleep disorder 05/03/2015 - Type 2 diabetes mellitus with stage 3 chronic kidney disease, with long-term current use of insulin ([facility]) 12/09/2015 - Type II or unspecified type diabetes mellitus with peripheral circulatory disorders, uncontrolled(250.72) 08/28/2013 ALLERGIES: ALLERGIES Allergen Reactions - Adhesive Rash Redness to skin - Lisinopril Cough - Penicillins Unknown childhood MEDICATIONS: Current Outpatient Prescriptions: acetaminophen (TYLENOL) 325 mg tablet Take 2 tablets by mouth every 6 hours as needed for Pain or Fever. aspirin, enteric coated (ASPIRIN, ENTERIC COATED) 81 mg EC tablet Take 81 mg by mouth once daily. atorvastatin (LIPITOR) 80 mg tablet Take 1 tablet by mouth once daily. blood sugar diagnostic (FREESTYLE LITE STRIPS) test strip TEST BLOOD SUGAR ONCE DAILY. DX: E11.65. Insulin: No (Patient taking differently: three times daily. ) carvedilol (COREG) 25 mg tablet Take 0.5 tablets by mouth twice daily with meals. Cholecalciferol, Vitamin D3, 1,000 unit cap Take 1 capsule by mouth once daily. clopidogrel (PLAVIX) 75 mg tablet Take 1 tablet by mouth once daily. furosemide (LASIX) 20 mg tablet Take 1 tablet by mouth once daily. gemfibrozil (LOPID) 600 mg tablet Take 0.5 tablets by mouth twice daily. HYDROcodone-acetaminophen (NORCO) 5-325 mg per tablet Take 1 tablet by mouth twice daily as needed for Pain for up to 30 days.Earliest Fill Date: 03/02/18 [START ON 04/02/2018] HYDROcodone-acetaminophen (NORCO) 5-325 mg per tablet Take 1 tablet by mouth twice daily as needed for Pain for up to 30 days.Earliest Fill Date: 04/02/18 insulin glargine (LANTUS U-100 INSULIN) 100 unit/mL injection Inject 30 Units subcutaneously daily at bedtime. Via Syringe Insulin Syringe-Needle U-100 (BD INSULIN SYRINGE ULTRAFINE) 0.3 mL 31 gauge x 5/16 syrg 10 Units once daily. (Patient taking differently: Inject 30 Units subcutaneously once daily. ) insulin syringe-needle U-100 0.3 mL 31 gauge x 15/64 syrg for insulin injection three times daily as directed isosorbide mononitrate ER (IMDUR) 30 mg 24 hr tablet Take 30 mg by mouth once daily. LORazepam (ATIVAN) 0.5 mg tab Take 0.5 mg by mouth as needed. Magnesium Oxide 500 mg cap Take 500 mg by mouth once daily. nitroglycerin sublingual (NITROSTAT) 0.4 mg SL tablet Dissolve 1 tablet under the tongue as needed. DISSOLVE ON TONGUE FOR CHEST PAIN. IF NO PAIN RELIEF, CALL 911 ranolazine ER (RANEXA) 500 mg 12 hr tablet Take 500 mg by mouth twice daily. senna-docusate (SENNA-S) 8.6-50 mg per tablet Take 1 tablet by mouth twice daily as needed for Constipation. TRULICITY 1.5 mg/0.5 mL pnij INJECT 1.5MG SUBCUTANEOUSLY ONCE EACH WEEK, DISCARD PEN AFTER warfarin (COUMADIN) 2.5 mg tablet 5 mg by mouth every Sun; 2.5mg daily Mon-Sat No current facility-administered medications for this visit. SOCIAL HISTORY: Social History Substance Use Topics - Smoking status: Never Smoker - Smokeless tobacco: Never Used - Alcohol use Yes FAMILY HISTORY: FAMILY HISTORY Problem Relation Age of Onset - Heart Father - Hypertension Maternal Grandmother - GI Maternal Grandmother - Heart Paternal Grandfather - Cancer Mother lung - Cancer Sister Non hodgkins lymphoma - Diabetes Maternal Grandfather REVIEW OF SYSTEMS: NECK: Negative for lumps, goiter, pain and significant neck swelling RESPIRATORY: Negative for cough, hemoptysis, wheezing, COPD, dyspnea or shortness of breath CARDIOVASCULAR: Negative for chest pain, leg swelling, hypertension, CHF or palpitations, He does have claudication chronically and has had stents placed in his leg arteries with benefit. He does use hydrocodone as needed for claudication pain. There has not been recent increase in reliance on opiates. All other systems reviewed and negative, other than HPI. PHYSICAL EXAMINATION BP 103/73 Pulse 78 Resp 18 Wt 226 lb (102.5kg) General appearance: well appearing, alert, in no acute distress and well-hydrated, well nourished Skin: Skin color, texture, turgor normal, no suspicious rashes or lesions Head: normal Eyes: Ears: Nose/Sinuses: Oropharynx: Neck: Supple, no adenopathy; thyroid symmetric, normal size, no bruits Back: no pain to palpation, no pain to palpation over spine or costovertebral angles, reflexes are 2+ and symmetric, motor and sensory appear to be normal Lungs: clear to auscultation no wheezing or rhonchi Heart: RRR without murmur, gallop, or rubs. No ectopy Abdomen: Normal abdominal exam, Abdomen soft, non-tender. Bowel sounds normal. No masses, organomegaly Extremities: No lower leg edema or tenderness Musculoskeletal: Peripheral pulses: Neuro: Normal gait Appearance: well dressed well groomed, cooperative and pleasant Behavior: good eye contact Speech: fluent and coherent Mood: euthymic Affect: appropriate Perceptions: none Thought process: goal directed Thought Content: preoccupations with prospect of no longer being able to work; and the rapidity of the progression of CAD Intelligence level: normal Insight: good Judgment: good ASSESSMENT/PLAN: 1. Essential hypertension - ICD9: 401.9, ICD10: I10 - good control - Recommended regular aerobic exercise. - Goal of BP <130/80 - GEMFIBROZIL 600 MG TABLET 2. ASHD: unstable angina with progressive coronary artery disease 3. NSTEMI-- 4. acute CHF--improved with lasix 5. situational depression-- Plan: same medications RTO 1 mo f/u with cardiologists as appointed Mian Wilburn III MD March 05, 2018 11:19 AM CNOV Observed: 03/05/2018 Status: COMPLETED Source: [place] 10:40 AM [facility] REPOSITORY Office Visit (FAMPWS) NOMAN STONE ([id number]) 1955 M Date Time Provider Department 03/05/18 10:40 AM IMAN WILBURN III During your visit today, we recorded the following information about you: Pulse Respiration Blood pressure Weight 78/minute 18/minute 103/73 102.5 kg Mian Wilburn III MD 03/05/2018 12:46 PM Signed Visit for Transitional Care Management CC: Noman is a 62 year old male following 6, days after the Hospital/Retirement Discharge. [facility] and cardio Records reviewed. HPI: developed exertional chest pain when walking down down hallway at [facility]. NSTEMI. Had CABG 5 in August 2017, but heart cath 02/26/18 =closure of 4 of the 5 grafts. Now on imdur, ranexa, ASA. Still has mild ant chest pain. Not exertional. Mild CENTENO due to imdur. He plans to start him right a progressive exercise program and to return to work on 03/12/18. He hopes to limit work starting in March and possibly retire. 2. He does admit to feeling somewhat depressed as he has some financial stresses and he was planning to work longer than at present. All of the male members of his family have prior to his present age. He is not suicidal and has strong support from his PAST MEDICAL HISTORY: PAST MEDICAL HISTORY Diagnosis Date - Acute renal failure ([facility]) - Atherosclerotic heart disease of [place] coronary artery without angina pectoris - CAD (coronary artery disease) - Diabetes mellitus ([facility]) 11/17/2010 - Essential hypertension, benign - GERD (gastroesophageal reflux disease) 11/17/2010 - H/O percutaneous transluminal coronary angioplasty - Heart failure with preserved ejection fraction ([facility]) - History of coronary artery bypass graft - Hyperlipidemia - Low testosterone 12/12/2011 - Obesity - ARNOLDO (obstructive sleep apnea) - PAD (peripheral artery disease) ([facility]) - Paroxysmal atrial fibrillation ([facility]) - Presence of stent in coronary artery - Raynaud's syndrome - Shift work sleep disorder 05/03/2015 - Type 2 diabetes mellitus with stage 3 chronic kidney disease, with long-term current use of insulin ([facility]) 12/09/2015 - Type II or unspecified type diabetes mellitus with peripheral circulatory disorders, uncontrolled(250.72) 08/28/2013 ALLERGIES: ALLERGIES Allergen Reactions - Adhesive Rash Redness to skin - Lisinopril Cough - Penicillins Unknown childhood MEDICATIONS: Current Outpatient Prescriptions: acetaminophen (TYLENOL) 325 mg tablet Take 2 tablets by mouth every 6 hours as needed for Pain or Fever. aspirin, enteric coated (ASPIRIN, ENTERIC COATED) 81 mg EC tablet Take 81 mg by mouth once daily. atorvastatin (LIPITOR) 80 mg tablet Take 1 tablet by mouth once daily. blood sugar diagnostic (FREESTYLE LITE STRIPS) test strip TEST BLOOD SUGAR ONCE DAILY. DX: E11.65. Insulin: No (Patient taking differently: three times daily. ) carvedilol (COREG) 25 mg tablet Take 0.5 tablets by mouth twice daily with meals. Cholecalciferol, Vitamin D3, 1,000 unit cap Take 1 capsule by mouth once daily. clopidogrel (PLAVIX) 75 mg tablet Take 1 tablet by mouth once daily. furosemide (LASIX) 20 mg tablet Take 1 tablet by mouth once daily. gemfibrozil (LOPID) 600 mg tablet Take 0.5 tablets by mouth twice daily. HYDROcodone-acetaminophen (NORCO) 5-325 mg per tablet Take 1 tablet by mouth twice daily as needed for Pain for up to 30 days.Earliest Fill Date: 03/02/18 [START ON 04/02/2018] HYDROcodone-acetaminophen (NORCO) 5-325 mg per tablet Take 1 tablet by mouth twice daily as needed for Pain for up to 30 days.Earliest Fill Date: 04/02/18 insulin glargine (LANTUS U-100 INSULIN) 100 unit/mL injection Inject 30 Units subcutaneously daily at bedtime. Via Syringe Insulin Syringe-Needle U-100 (BD INSULIN SYRINGE ULTRAFINE) 0.3 mL 31 gauge x 5/16 syrg 10 Units once daily. (Patient taking differently: Inject 30 Units subcutaneously once daily. ) insulin syringe-needle U-100 0.3 mL 31 gauge x 15/64 syrg for insulin injection three times daily as directed isosorbide mononitrate ER (IMDUR) 30 mg 24 hr tablet Take 30 mg by mouth once daily. LORazepam (ATIVAN) 0.5 mg tab Take 0.5 mg by mouth as needed. Magnesium Oxide 500 mg cap Take 500 mg by mouth once daily. nitroglycerin sublingual (NITROSTAT) 0.4 mg SL tablet Dissolve 1 tablet under the tongue as needed. DISSOLVE ON TONGUE FOR CHEST PAIN. IF NO PAIN RELIEF, CALL 911 ranolazine ER (RANEXA) 500 mg 12 hr tablet Take 500 mg by mouth twice daily. senna-docusate (SENNA-S) 8.6-50 mg per tablet Take 1 tablet by mouth twice daily as needed for Constipation. TRULICITY 1.5 mg/0.5 mL pnij INJECT 1.5MG SUBCUTANEOUSLY ONCE EACH WEEK, DISCARD PEN AFTER warfarin (COUMADIN) 2.5 mg tablet 5 mg by mouth every Sun; 2.5mg daily Mon-Sat No current facility-administered medications for this visit. SOCIAL HISTORY: Social History Substance Use Topics - Smoking status: Never Smoker - Smokeless tobacco: Never Used - Alcohol use Yes FAMILY HISTORY: FAMILY HISTORY Problem Relation Age of Onset - Heart Father - Hypertension Maternal Grandmother - GI Maternal Grandmother - Heart Paternal Grandfather - Cancer Mother lung - Cancer Sister Non hodgkins lymphoma - Diabetes Maternal Grandfather REVIEW OF SYSTEMS: NECK: Negative for lumps, goiter, pain and significant neck swelling RESPIRATORY: Negative for cough, hemoptysis, wheezing, COPD, dyspnea or shortness of breath CARDIOVASCULAR: Negative for chest pain, leg swelling, hypertension, CHF or palpitations, He does have claudication chronically and has had stents placed in his leg arteries with benefit. He does use hydrocodone as needed for claudication pain. There has not been recent increase in reliance on opiates. All other systems reviewed and negative, other than HPI. PHYSICAL EXAMINATION BP 103/73 Pulse 78 Resp 18 Wt 226 lb (102.5kg) General appearance: well appearing, alert, in no acute distress and well-hydrated, well nourished Skin: Skin color, texture, turgor normal, no suspicious rashes or lesions Head: normal Eyes: Ears: Nose/Sinuses: Oropharynx: Neck: Supple, no adenopathy; thyroid symmetric, normal size, no bruits Back: no pain to palpation, no pain to palpation over spine or costovertebral angles, reflexes are 2+ and symmetric, motor and sensory appear to be normal Lungs: clear to auscultation no wheezing or rhonchi Heart: RRR without murmur, gallop, or rubs. No ectopy Abdomen: Normal abdominal exam, Abdomen soft, non-tender. Bowel sounds normal. No masses, organomegaly Extremities: No lower leg edema or tenderness Musculoskeletal: Peripheral pulses: Neuro: Normal gait Appearance: well dressed well groomed, cooperative and pleasant Behavior: good eye contact Speech: fluent and coherent Mood: euthymic Affect: appropriate Perceptions: none Thought process: goal directed Thought Content: preoccupations with prospect of no longer being able to work; and the rapidity of the progression of CAD Intelligence level: normal Insight: good Judgment: good ASSESSMENT/PLAN: 1. Essential hypertension - ICD9: 401.9, ICD10: I10 - good control - Recommended regular aerobic exercise. - Goal of BP <130/80 - GEMFIBROZIL 600 MG TABLET 2. ASHD: unstable angina with progressive coronary artery disease 3. NSTEMI-- 4. acute CHF--improved with lasix 5. situational depression-- Plan: same medications RTO 1 mo f/u with cardiologists as appointed Mian Wilburn III MD March 05, 2018 11:19 AM Referring Provider: SELF [200] Allergies As of Date: 03/05/2018 Noted Allergy Reaction ADHESIVE 05/12/2008 2 - Rash Comments: Redness to skin LISINOPRIL 11/17/2010 3 - Cough PENICILLINS 06/22/2005 16 - Unknown Comments: childhood Date Reviewed: 03/05/2018 Reviewed by: Juliette ([facility]) SEBASTIAN Arriaza - Fully Assessed Reason for Visit: Hospital Follow Up [177] Primary Visit Diagnosis:Hospital discharge follow-up [Z09] Other Visit Diagnoses:Essential hypertension [I10] Situational anxiety [F41.8] Coronary artery disease involving [place] coronary artery of [place] heart, angina presence unspecified [I25.10] Order(s):gemfibrozil (LOPID) 600 mg tabletTake 0.5 tablets by mouth twice daily.Disp: 90 tabletRfl: 3 LORazepam (ATIVAN) 0.5 mg tabTake 1 tablet by mouth as needed for up to 30 days.Disp: 30 tabletRfl: 0 Prescriptions as of 03/05/2018 Sig: ACETAMINOPHEN 325 MG TABLET Take 2 tablets by mouth every* ASPIRIN 81 MG TABLET,DELAYED * Take 81 mg by mouth once kristen* ATORVASTATIN 80 MG TABLET Take 1 tablet by mouth once d* BLOOD SUGAR DIAGNOSTIC STRIPS TEST BLOOD SUGAR ONCE DAILY. * Patient taking differently: three times daily. CARVEDILOL 25 MG TABLET Take 0.5 tablets by mouth twi* CHOLECALCIFEROL (VITAMIN D3) * Take 1 capsule by mouth once * CLOPIDOGREL 75 MG TABLET Take 1 tablet by mouth once d* FUROSEMIDE 20 MG TABLET Take 1 tablet by mouth once d* GEMFIBROZIL 600 MG TABLET Take 0.5 tablets by mouth twi* HYDROCODONE 5 MG-ACETAMINOPHE* Take 1 tablet by mouth twice * HYDROCODONE 5 MG-ACETAMINOPHE* Take 1 tablet by mouth twice * INSULIN GLARGINE (U-100) 100 * Inject 30 Units subcutaneousl* INSULIN SYRINGE U-100 WITH NE* 10 Units once daily. Patient taking differently: Inject 30 Units subcutaneousl* INSULIN SYRINGE U-100 WITH NE* for insulin injection three t* ISOSORBIDE MONONITRATE ER 30 * Take 30 mg by mouth once kristen* LORAZEPAM 0.5 MG TABLET Take 1 tablet by mouth as nee* MAGNESIUM OXIDE 500 MG CAPSULE Take 500 mg by mouth once malgorzata* NITROGLYCERIN 0.4 MG SUBLINGU* Dissolve 1 tablet under the t* RANOLAZINE ER 500 MG TABLET,E* Take 500 mg by mouth twice da* SENNOSIDES 8.6 MG-DOCUSATE SO* Take 1 tablet by mouth twice * TRULICITY 1.5 MG/0.5 ML SUBCU* INJECT 1.5MG SUBCUTANEOUSLY O* WARFARIN 2.5 MG TABLET 5 mg by mouth every Sun; 2.5m* Problem List As Of Date 03/05/2018 Noted Resolved Raynaud's syndrome [I73.00] Primary hypertension [I10] More... Hyperlipidemia [E78.5] More... Chronic low back pain [M54.5, G89.29] INVALID FOR* More... Anxiety state [F41.1] INVALID FOR* Skin lesion [L98.9] INVALID FOR* Peripheral arterial disease [I73.9] INVALID FOR* More... Parotid discomfort [K11.9] INVALID FOR* Diabetes mellitus (HCC) [E11.9] INVALID FOR*08/28/2013 Anxiety [F41.9] INVALID FOR* GERD (gastroesophageal reflux disease) [K21.9] INVALID FOR* Low testosterone [E34.9] INVALID FOR* Diabetes mellitus type 2 with peripheral artery*INVALID FOR* More... SUMMARY INVALID FOR*02/14/2015 More... 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] INVALID FOR*09/27/2017 More... CAD (coronary artery disease) [I25.10] INVALID FOR* More... Unstable angina (HCC) [I20.0] INVALID FOR*09/27/2017 More... Presence of stent in left circumflex coronary a*INVALID FOR* Presence of drug coated stent in posterior desc*INVALID FOR* PAD (peripheral artery disease) (HCC) [I73.9] INVALID FOR* Shift work sleep disorder [G47.26] INVALID FOR* Stable angina (HCC) [I20.8] INVALID FOR* Bowel habit changes [R19.4] INVALID FOR* Type 2 diabetes mellitus with stage 3 chronic k*INVALID FOR* senior care current use of opiate analgesic [Z79.*INVALID FOR* Insulin resistance [E88.81] INVALID FOR* senior care prescription benzodiazepine use [Z79.*INVALID FOR* Obesity, Class II, BMI 35-39.9 [E66.9] INVALID FOR* More... Stage 3 chronic kidney disease (HCC) [N18.3] INVALID FOR* More... More... Leukocytosis [D72.829] INVALID FOR*09/27/2017 More... Discharge planning issues [Z02.9] INVALID FOR* More... On mechanically assisted ventilation (HCC) [Z99*INVALID FOR*09/22/2017 More... Pain, postoperative, acute [G89.18] INVALID FOR*10/08/2017 More... A-fib (HCC) [I48.91] INVALID FOR* More... Atelectasis [J98.11] INVALID FOR* More... Summary [Z91.89] INVALID FOR* More... Anticoagulation management encounter [Z51.81, Z*INVALID FOR* More... Current use of detention anticoagulation [Z79.0*INVALID FOR* Acute renal failure (HCC) [N17.9] INVALID FOR* Bradycardia [R00.1] INVALID FOR* Occlusion and stenosis of bilateral carotid art*INVALID FOR* Status post percutaneous transluminal coronary *INVALID FOR* Prescriptions ordered this encounter Disp Refills Start End GEMFIBROZIL 600 MG TABLET 90 t* 3 03/05/2018 Route: ORAL Sig: Take 0.5 tablets by mouth twice daily. LORAZEPAM 0.5 MG TABLET 30 t* 0 03/05/2018 04/04/2018 Class: Print RX Route: ORAL Sig: Take 1 tablet by mouth as needed for up to 30 days. Medications Discontinued During This Encounter insulin lispro (HUMALOG) 100 unit/mL* 10 mL 0 09/27/2017 03/05/2018 Sig: If blood glucose is 151-200 = 2 unit; 201-250 = 4 units; 251-300 = 6 units; 301-350 = 8 units; 351-400 = 10 units; >400 Call Patient not taking: Reported on 03/05/2018 Disc: Discontinued by another Health Care Provider Hydrochlorothiazide 12.5 mg capsule 90 c* 3 10/08/2017 03/05/2018 Sig: Take one capsule by mouth once daily after Lasix prescription is completed after 5 days Patient not taking: Reported on 03/05/2018 Disc: Discontinued by another Health Care Provider clindamycin (CLEOCIN) 300 mg capsule 10/01/2017 03/05/2018 Class: Med Update Route: ORAL Sig: Take 1 capsule by mouth every 8 hours. Patient not taking: Reported on 03/05/2018 Disc: Course of therapy completed HYDROcodone-acetaminophen (NORCO) 5-* 60 t* 0 01/31/2018 03/05/2018 Class: Print RX Route: ORAL Sig: Take 1 tablet by mouth twice daily as needed for Pain for up to 30 days. Disc: Course of therapy completed gemfibrozil (LOPID) 600 mg tablet 90 t* 3 01/23/2017 03/05/2018 Route: ORAL Sig: Take 0.5 tablets by mouth twice daily. Disc: Reason for discontinue is not on file. LORazepam (ATIVAN) 0.5 mg tab 03/05/2018 Class: Historical Med Route: ORAL Sig: Take 0.5 mg by mouth as needed. Disc: Reason for discontinue is not on file. Encounter Status:Closed by MIAN WILBURN III, MD on 03/05/18 12 LEAD ELECTROCARDIOGRAM Observed: 02/28/2018 Status: F Source: [place] 2:15 PM [facility] REPOSITORY [facility] Cardiovascular Services [address] [place] [address] 12 Lead EKG 02/25/18 0316 MR#: [id number] Acct: [id number] Name: BERTHANOMAN J Rep #: [id number] : 1955 62 From: Tex Coker MD Attending Dr: Valery Khanna Status: DIS IN Ordering Dr: Valery Khanna Date: 02/25/18 Location: [facility] Sex: M C Admitted: 02/25/18 Test Reason : Blood Pressure : / mmHG Vent. Rate : 061 BPM Atrial Rate : 061 BPM P-R Int : 172 ms QRS Dur : 090 ms QT Int : 402 ms P-R-T Axes : 027 025 058 degrees QTc Int : 404 ms Normal sinus rhythm Normal ECG Confirmed by RICHARD JAEGER, TEX ([id number]), acquisitions editor CHRISTINE MILLER ([id number]) on 02/28/2018 2:15:01 PM Referred By: Confirmed By:TEX COKER MD 02/28/18 1415 Date Tex Coker MD CC: Valery Khanna; Mian Wilburn III, MD Signed 12 LEAD ELECTROCARDIOGRAM Observed: 02/28/2018 Status: F Source: [place] 2:11 PM [facility] REPOSITORY [facility] Cardiovascular Services [address] [place] [address] 12 Lead EKG 02/25/18 1700 MR#: [id number] Acct: [id number] Name: BERTHANOMAN J Rep #: [id number] : 1955 62 From: Tex Coker MD Attending Dr: Valery Khanna Status: DIS IN Ordering Dr: Boni Renae MD Date: 02/25/18 Location: [facility] Sex: M C Admitted: 02/25/18 Test Reason : CP Blood Pressure : / mmHG Vent. Rate : 067 BPM Atrial Rate : 067 BPM P-R Int : 180 ms QRS Dur : 092 ms QT Int : 406 ms P-R-T Axes : 025 038 046 degrees QTc Int : 429 ms Normal sinus rhythm Normal ECG Confirmed by TEX COKER MD ([id number]), acquisitions editor CHRISTINE MILLER ([id number]) on 02/28/2018 2:10:39 PM Referred By: Tex Coker Confirmed By:TEX COKER MD 02/28/18 1410 Date Tex Coker MD CC: Valery Khanna; Mian Wilburn III, MD; Boni Renae MD Signed 12 LEAD ELECTROCARDIOGRAM Observed: 02/28/2018 Status: F Source: [place] 1:52 PM [facility] REPOSITORY [facility] Cardiovascular Services [address] [place] [id number] 12 Lead EKG 02/26/18 0454 MR#: [id number] Acct: [id number] Name: NOMAN STONE Rep #: [id number] : 1955 62 From: Tex Coker MD Attending Dr: Valery Khanna Status: DIS IN Ordering Dr: Tex Coker MD Date: 02/26/18 Location: [facility] Sex: M C Admitted: 02/25/18 Test Reason : AM EKG Blood Pressure : / mmHG Vent. Rate : 074 BPM Atrial Rate : 074 BPM P-R Int : 174 ms QRS Dur : 086 ms QT Int : 394 ms P-R-T Axes : 012 036 050 degrees QTc Int : 437 ms Normal sinus rhythm Normal ECG Confirmed by TEX COKER MD ([id number]), acquisitions editor CHRISTINE MILLER ([id number]) on 02/28/2018 1:52:20 PM Referred By: Tex Coker Confirmed By:TEX COKER MD 02/28/18 1352 Date Tex Coker MD CC: Valery Khanna; Mian Wilburn III, MD; Tex Coker MD Signed DISCHARGE SUMMARY Observed: 02/27/2018 Status: F Source: [place] 10:28 AM [facility] REPOSITORY [facility] Medical Records Department [address] [place] [address] Discharge Summary 02/27/18 0832 MR#: [id number] Acct: [id number] Name: NOMAN STONE Rep #: [id number] : 1955 62 From: Valery Khanna PCP: Mian Wilburn III, MD Status: ADM IN Y Location: [place] [address] Discharge Date and Diagnosis - Problem List Patient Problems: Active and Suspected Problems (Last Reviewed 02/25/18 @ 08:18 by Boni Renae MD) Chest pain, unspecified (Acute) NSTEMI (non-ST elevated myocardial infarction) (Acute) Date of Admission: 02/25/18 Date of Discharge: 02/27/18 - Primary Discharge Diagnosis Active and Suspected Problems (Last Reviewed 02/25/18 @ 08:18 by Boni Renae MD) (1) Chest Pain w/ Acute NSTEMI w/ multivessel coronary disease with MANCERA to LAD patent, SVG to OM occluded, SVG to IR occluded, SVG sequential graft to RCA PDA occluded, left to right collateral flow and right to left collateral (2) CAD s/p recent CABG x 5, MANCERA to LAD, SVG to Ramus, SVG to PDA, SVG to PLV, SVG to OM, PV isolation, left atrial appendage excision 09/21/17 and prior to this PCI w/ stent to prox/distal RCA 2008 and to mid RCA and PCI of the PDA 04/20/15 (3) Diabetes mellitus type II (4) Obesity (5) Hyperlipidemia (6) Hypertension (7) PAF (8) PAD - Secondary Discharge Diagnosis Chronic Problems (Last Reviewed 02/25/18 @ 08:18 by Boni Renae MD) Renal insufficiency (Chronic) CAD (coronary artery disease) (Chronic) Presence of stent in coronary artery (Chronic) PCI/stent to prox/distal RCA 2008; PCI/Stent to mid RCA and PCi of the PDA 04/20/15 Atherosclerotic heart disease of [place] coronary artery without angina pectoris (Chronic) PCI/stent to prox/distal RCA 2008; PCI/Stent to mid RCA and PCi of the PDA 04/20/15; CABG x5- MANCERA to LAD, SVG to Ramus, SVG to PDA, SVG to PLV, SVG to OM, PV isolation, left atrial appendage excision 09/21/17 Paroxysmal atrial fibrillation (Chronic) H/O coronary artery bypass surgery (Chronic 09/21/17) CABG x5- MANCERA to LAD, SVG to Ramus, SVG to PDA, SVG to PLV, SVG to OM, PV isolation, left atrial appendage excision 09/21/17 Type 2 diabetes mellitus (Chronic) Hypertension (Chronic) PAD (peripheral artery disease) (Chronic) PCI/Stent L fem artery 11/26/07; PCI Rt fem 02/17/08; PCI Left pop and sup femoral artery 03/09/10; PCI Rt pop and Rt SFA 05/11/10; PCI bilat LE arteriogram w/angioplasty 10/03/10; PCI/LLE 07/17/11 HLD (hyperlipidemia) (Chronic) Hospital Course and Treatment Dr. Coker Cardiology Operations: None Procedures: 2-D Echocardiogram, Cardiac catheterization, EKG Summary of Care Provided: The patient is a 62 y/o M w/ PMHx: PAF, HTN, HLD, CAD s/p CABG x 5, Obesity, GERD, PAF, PAD who presented to the [facility] ED on 02/25/18 with history of onset progressively worsening substernal chest discomfort, worse with exertion with radiation to the left shoulder times 48 hours, pressure-like and aching in sensation. EKG in ED w/ acute evidence of ischemia, CXR w/ no acute process. Trop elevated, initially 0.020-->1.010-->1.680-->1.380. Admitted to PCU, maintain on a monitored bed, Continue medical management w/ plavix, BB, statin, addition of imdur and ranexa per Cardiology w/ AM FLP obtained as noted. Cardiology consulted, 02/26/18 cardiac catheterization as INR 1.6 s/p reversal coumadin. Cardiac catheterization w/ elevated LV end-diastolic pressure, segmented LV systolic dysfunction noted to be mild, LVEF 50%, [place] multivessel coronary disease with MANCERA to LAD patent, SVG to OM occluded, SVG to IR occluded, SVG sequential graft to RCA PDA occluded, left to right collateral flow and right to left collateral for present with recognitions for continued aggressive medical therapy. Per discussion with Dr. Coker restarted patient coumadin 02/27/18 with INR trending outpatient. ECHO w/ segmental dysfunction with preserved EF, EF 60%, postoperative septal motion, trivial MVI, trivial TVI, mild focal AV calcification, diastolic function indeterminate. Patient work parameters and exercise parameters per Cardiology discretion. Patient discharged to home with requested follow-up with his PCP to review INR 02/28/18 with restart coumadin in addition to Cardiology per their discretion. DAY OF DISCHARGE PROGRESS NOTE: Subjective: Patient without acute event overnight per self and nursing report. Patient denies any any recurrent chest discomfort or dyspnea. Discussed medications at length this morning as Ranexa despite prior authorization with $66 per month noted to be too costly for patient at this time. Coumadin restarted this AM w/ advised INR follow- up with PCP 02/28/18. Patient denies fever, chills, nausea, emesis, abdominal pain, recurrent or worsened chest pain or dyspnea. Patient agreeable to discharge to home. Patient will be discharged with follow-up with primary care physician within 3-5 days in addition to follow-up with Cardiology per their discretion. Advised mild exercise until re-evaluation per Cardiology and clearance. Discussed groin care. Allowance return to work the following Sunday. Objective: T 97.4, heart rate 59, BP 134/84, respiratory rate 16, 95% on room air. Physical Examination: General: awake, alert, oriented x 3 and cooperative, seated upright in the bed, NAD. Skin: normal color, turgor, no icterus, cyanosis, R groin w/ dressing in place, no bleeding. HEENT: AT/NC, EOMI, PERRLA, MMM. Lungs: CTA bilaterally, moderate effort, mild decrease BL bases, no rales, ronchi or wheezing; Heart: Regular rate and rhythm; no gallop, rub audible. Abdomen: soft, obese, NTTP, ND, normal BS. Extremities: no cyanosis, clubbing, or edema. Neurological: patient awake, alert, oriented x 3; cognitive function appears intact upon questioning,; pupils equally reactive to light and accomodation; cranial nerves II-XII grossly normal, moving all 4 extremities, strength appropriate. Psychiatric: affect appears normal, no acute evidence of depressive or anxiety feelings. Assessment and Plan: Please see hospital summary above. Patient Problems: Active and Suspected Problems (Last Reviewed 02/25/18 @ 08:18 by Boni Renae MD) Chest pain, unspecified (Acute) NSTEMI (non-ST elevated myocardial infarction) (Acute) - Physical Exam Vital Signs Temp Pulse Resp BP Pulse Ox 97.4 F L 72 16 134/84 H 96 02/27/18 03:45 02/27/18 07:05 02/27/18 03:45 02/27/18 03:45 02/27/18 07:24 Oxygen Flow Rate (L/min) 2 Oxygen Delivery Method Room Air Weight: 229 lb 4.492 oz Body Mass Index (BMI) 34.8 Intake and Output for Last 24 Hours Intake Total 1485 / 1485 2345 / 2345 385 / 385 Balance 1485 / 1485 2345 / 2345 385 / 385 Laboratory Tests Past 24 Hrs WBC 8.0 RBC 4.76 Hgb 13.6 Hct 42.5 MCV 89.3 MCH 28.6 MCHC 32.0 POC Glucose POC Glucose 128 H 150 H 193 H POC Glucose 114 H Discharge Activity: - - Activity parameters per Cardiology. Return to work on:: 03/04/18 - Work parameters per Cardiology May resume sexual activity in: 1-2 weeks Weight Bearing Status: Weight bearing as tolerated Call your doctor if your incision/area has: Continuous Slow Oozing, Sudden Increased Bleeding, Increased Pain/ Swelling, Increased Redness, Foul Smelling Discharge, Swelling at the incision site Call your doctor if you observe: Fever of 101 or Higher, Inability to urinate, Inability to have a bowel movement, Shortness of breath, Dizziness, Fainting spells, Chest pain, Uncontrolled pain Home Medications: Medications to take at Discharge Clopidogrel Bisulfate [Plavix] 75 mg PO DAILY 02/07/13 Cholecalciferol (Vitamin D3) [Vitamin D] 5,000 unit PO DAILY 01/16/14 Atorvastatin Calcium [Lipitor] 80 mg PO QHS 07/05/15 Dulaglutide [Trulicity] 1.5 mg SQ QWEEK 09/09/17 Magnesium Oxide 500 mg PO DAILY 09/09/17 Insulin Glargine,Hum.rec.anlog [Lantus] 30 unit SQ QHS 09/30/17 Warfarin [Coumadin] 2.5 mg PO DAILY 09/30/17 hydrocodone 5 mg-acetaminophen 325 mg tablet 1 tab PO Q12H PRN tab 10/31/17 lorazepam 0.5 mg tablet 0.5 mg PO BID PRN tab 10/31/17 carvedilol 25 mg tablet 12.5 mg PO BID tab 02/01/18 Warfarin Sodium 5 mg PO HOLDER 02/25/18 Aspirin E.C. [Ecotrin] 81 mg PO DAILY@0800 tablet 02/27/18 Isosorbide Mononitrate [Imdur] 30 mg PO DAILY #30 tablet 02/27/18 Nitroglycerin [Nitrostat] 0.4 mg SUBLINGUAL Q5M PRN #10 tablet 02/27/18 Ranolazine [Ranexa] 500 mg PO BID #60 tablet 02/27/18 Following Prescrptions Were Given to Patient: Isosorbide Mononitrate [Imdur] 30 mg PO DAILY #30 tablet Nitroglycerin [Nitrostat] 0.4 mg SUBLINGUAL Q5M PRN #10 tablet PRN Reason: Chest Pain Ranolazine [Ranexa] 500 mg PO BID #60 tablet Primary Care Physician: Mian Wilburn III, MD [Primary Care Provider] - Please follow up with your Primary Care Physician in: Follow- up within 2-3 days to review admission, review INR results. Please Follow Up With: Tex Coker MD When: Please follow-up with Cardiology per their discretion/recommendation. Patient Instructions: Symptoms of a Heart Attack, First Aid: Heart Attacks, Recognizing a Heart Attack or Angina, Understanding Coronary Artery Disease (CAD), Discharge Instructions for Heart Attack Disposition: Home Minutes spent on discharge:: 35 Patient Condition:: Fair Medical Necessity - Tobacco Use Smoking Status: Never smoker Meaningful Use Info Meaningful Use Diagnoses (Choose all that apply): AMI - AMI Aspirin given w/in 24hrs of arrival?: Yes ASA at discharge?: Yes Statins at discharge?: Yes Leonard/ARB at discharge?: No Reason Leonard/ARB not ordered:: Allergy Beta Nico at discharge?: Yes Done w/ Acute LA measure.: Yes Code Visit Inpatient E AND M: 05113 Disch Hosp 02/27/18 1028 <Electronically signed by Valery Khanna > Date Valery Khanna Cosigner Signature (if applicable): Date CC: Valery Khanna; Mian Wilburn III, MD Signed DISCHARGE INSTRUCTION Observed: 02/27/2018 Status: F Source: [place] 8:31 AM [facility] REPOSITORY [facility] Medical Records Department [address] [place] [address] [place] [address] Instructions for Home/Discharge Instructions 02/27/18825 MR#: [id number] Acct: [id number] Name: NOMAN STONE Rep #: [id number] : 1955 62 From: Valery Khanna PCP: Mian Wilburn III, MD Status: ADM IN - Discharge Diagnoses Current Active Problems: Current Active and Chronic Problems (Last Reviewed 02/25/18 @ 08:18 by Boni Renae MD) (1) Chest Pain w/ Acute NSTEMI w/ multivessel coronary disease with MANCERA to LAD patent, SVG to OM occluded, SVG to IR occluded, SVG sequential graft to RCA PDA occluded, left to right collateral flow and right to left collateral (2) CAD s/p recent CABG x 5, MANCERA to LAD, SVG to Ramus, SVG to PDA, SVG to PLV, SVG to OM, PV isolation, left atrial appendage excision 09/21/17 and prior to this PCI w/ stent to prox/distal RCA 2008 and to mid RCA and PCI of the PDA 04/20/15 (3) Diabetes mellitus type II (4) Obesity (5) Hyperlipidemia (6) Hypertension (7) PAF (8) PAD You will use the following diet at home:: Calorie/Carbohydrate Controlled (specify 1200, 1400, etc), Cardiac Your food should be the consistency of: Regular Your liquids should be the consistency of: Regular/Thin Discharge Activity: - - Activity parameters per Cardiology. Return to work on:: 03/04/18 - Work parameters per Cardiology May resume sexual activity in: 1-2 weeks Weight Bearing Status: Weight bearing as tolerated Call your doctor if your incision/area has: Continuous Slow Oozing, Sudden Increased Bleeding, Increased Pain/ Swelling, Increased Redness, Foul Smelling Discharge, Swelling at the incision site Call your doctor if you observe: Fever of 101 or Higher, Inability to urinate, Inability to have a bowel movement, Shortness of breath, Dizziness, Fainting spells, Chest pain, Uncontrolled pain Instructions: Symptoms of a Heart Attack, First Aid: Heart Attacks, Recognizing a Heart Attack or Angina, Understanding Coronary Artery Disease (CAD), Discharge Instructions for Heart Attack Additional Instructions: Please follow-up outpatient and trend your INR, obtain initial on 02/28/18 and your physician will alter your coumadin to achieve therapeutic level 2-2.5. Allergies/Adverse Reactions: Allergies adhesive Allergy (Verified 02/24/18 23:11) Unknown lisinopril Allergy (Verified 02/24/18 23:11) Unknown Penicillins Allergy (Verified 02/24/18 23:11) Unknown Medications to take at Discharge Clopidogrel Bisulfate [Plavix] 75 mg PO DAILY 02/07/13 Nitroglycerin [Nitrostat] 0.4 mg SUBLINGUAL Q5M PRN 02/07/13 Cholecalciferol (Vitamin D3) [Vitamin D] 5,000 unit PO DAILY 01/16/14 Atorvastatin Calcium [Lipitor] 80 mg PO QHS 07/05/15 Dulaglutide [Trulicity] 1.5 mg SQ QWEEK 09/09/17 Magnesium Oxide 500 mg PO DAILY 09/09/17 Insulin Glargine,Hum.rec.anlog [Lantus] 30 unit SQ QHS 09/30/17 Warfarin [Coumadin] 2.5 mg PO DAILY 09/30/17 hydrocodone 5 mg-acetaminophen 325 mg tablet 1 tab PO Q12H PRN tab 10/31/17 lorazepam 0.5 mg tablet 0.5 mg PO BID PRN tab 10/31/17 carvedilol 25 mg tablet 12.5 mg PO BID tab 02/01/18 Warfarin Sodium 5 mg PO HLODER 02/25/18 Aspirin E.C. [Ecotrin] 81 mg PO DAILY@0800 tablet 12/05/18 Isosorbide Mononitrate [Imdur] 30 mg PO DAILY #30 tablet 02/27/18 Ranolazine [Ranexa] 500 mg PO BID #60 tablet 02/27/18 The following prescriptions were given: Isosorbide Mononitrate [Imdur] 30 mg PO DAILY #30 tablet Ranolazine [Ranexa] 500 mg PO BID #60 tablet Primary Care Physician: Mian Wilburn III, MD [Primary Care Provider] - Please follow up with your Primary Care Physician in: Follow- up within 2-3 days to review admission, review INR results. Test Results: Test results from this visit will be discussed in further detail at your follow-up appointment, if applicable. Please Follow Up With: Tex Coker MD When: Please follow-up with Cardiology per their discretion/recommendation. Proposed Discharge Date: 02/27/18 02/27/18830 <Electronically signed by Valery Khanna > Date Valery Khanna CC: Mian Wilburn III, MD; Tex Coker MD BEDSIDE GLUCOSE Collected: 02/27/2018 Status: F Source: [place] 6:42 AM [facility] REPOSITORY TYPE CODE TESTS RESULT OUT OF REFERENCE UNITS RANGE LAB L501.080 70-110 mg/dL High BEDSIDE GLU 128 Result Comment: MANAGEMENT OF PATIENT CARE PER NURSING PROTOCOL Performed By: #### L501.080 #### [facility] Laboratory Point of Care [facility] [place] [address] CBC W/DIFF, AUTOMATED Collected: 02/27/2018 Status: F Source: [place] 5:33 AM [facility] REPOSITORY TYPE CODE TESTS RESULT OUT OF RANGE REFERENCE UNITS LAB L100.1000 4.4-11.0 K/mm3 Normal WBC 8.0 LAB L100.1200 4.6-6.2 M/mm3 Normal RBC 4.76 LAB L100.1300 13.0-16.5 g/dl Normal HGB 13.6 LAB L100.1400 40-54 % Normal HCT 42.5 LAB L100.1500 80-94 fL Normal MCV 89.3 LAB L100.1600 27.0-32.0 pg Normal MCH 28.6 LAB L100.1700 32-36 g/gl Normal MCHC 32.0 LAB L100.1810 11.6-14.6 % High RDW CV 15.1 LAB L100.1820 35.1-43.9 fl High RDW SD 49.3 LAB L100.1900 150-450 K/mm3 Normal PLT 176 LAB L100.2000 6.2-12.0 fl Normal MPV 10.0 LAB L100.2100 47-70 % Normal NEUT% 53.3 LAB L100.2200 19-41 % Normal LY% 34.3 LAB L100.2300 0-10 % Normal MONO% 9.6 LAB L100.2400 0-5 % Normal EO% 2.2 LAB L100.2500 0-1 % Normal BASO% 0.2 LAB L100.2550 0.0-0.9 % Normal IM GRAN % 0.400 Result Comment: IG% - Immature Granulocytes (promyelocytes, myelocytes and metamyelocytes) > 1% indicates that a LEFT SHIFT is Present. LAB L100.2620 2.0-7.7 X10 3/uL Normal Absolute Neut 4.3 LAB L100.2720 0.83-4.51 X10 3/ul Normal Absolute Lymph 2.75 Performed By: #### L100.0100 #### [facility] Laboratory [address] [place], [address] BASIC METABOLIC Collected: 02/27/2018 Status: F Source: [place] PROFILE ([facility]) 5:33 AM [facility] REPOSITORY TYPE CODE TESTS RESULT OUT OF RANGE REFERENCE UNITS LAB L501.0100 74-106 mg/dL High GLU 135 Result Comment: Fasting Glucose result greater than or equal to 126 mg/dL suggests DIABETES MELLITUS per A.D.A. criteria. Please note revised GLUCOSE reference range effective 2017. LAB L501.1000 7-18 mg/dL Normal BUN 15 LAB L501.1100 0.70-1.30 mg/dL Normal CREAT,SERUM 1.22 Result Comment: The validity of the calculated GFR AND GFRAA in patients over 70 years has not been determined. Clinical correlation is essential. LAB L501.1110 >60 mL/min Normal EST GFR 64 Result Comment: Non- GFR Calc LAB L501.1115 >60 mL/min Normal EST GFR - AA 77 Result Comment: GFR Calc LAB L501.1255 ml/min Normal Estimated CRCL 59.96 LAB L501.1300 10-20 RATIO Normal BUN/CRE 12.3 LAB L501.2200 8.5-10 mg/dL Low .1 CA 8.4 LAB L501.5300 136-14 mmol/L Normal 5 NA 138 LAB L501.5600 3.5-5. mmol/L Normal 1 K 4.1 LAB L501.5900 98-107 mmol/L Normal CL 104 LAB L501.6100 21.0-3 mmol/L Normal 2.0 CO2 29.0 LAB L501.6200 5-15 Normal GAP 5 Performed By: #### L500.2500 #### [facility] [address] [facility] [address] BEDSIDE GLUCOSE Collected: 02/26/2018 Status: F Source: [place] 9:49 PM [facility] REPOSITORY TYPE CODE TESTS RESULT OUT OF REFERENCE UNITS RANGE LAB L501.080 70-110 mg/dL High BEDSIDE GLU 150 Result Comment: MANAGEMENT OF PATIENT CARE PER NURSING PROTOCOL Performed By: #### L501.080 #### [facility] Laboratory Point of Care [address] [place] [address] BEDSIDE GLUCOSE Collected: 02/26/2018 Status: F Source: [place] 4:29 PM [facility] REPOSITORY TYPE CODE TESTS RESULT OUT OF REFERENCE UNITS RANGE LAB L501.080 70-110 mg/dL High BEDSIDE GLU 193 Result Comment: MANAGEMENT OF PATIENT CARE PER NURSING PROTOCOL Performed By: #### L501.080 #### [facility] Laboratory Point of Care [address] [place] [address] 12 LEAD ELECTROCARDIOGRAM Observed: 02/26/2018 Status: F Source: [place] 3:21 PM [facility] REPOSITORY [facility] Cardiovascular Services [address] [place] [address] 12 Lead EKG 02/24/18 2318 MR#: [id number] Acct: [id number] Name: NOMAN STONE Rep #: [id number] : 1955 62 From: Tex Coker MD Attending Dr: Valery Khanna Status: ADM IN Ordering Dr: Navjot Tejeda MD Date: 02/24/18 Location: [facility] Sex: M C Admitted: 02/25/18 Test Reason : CP Blood Pressure : / mmHG Vent. Rate : 081 BPM Atrial Rate : 081 BPM P-R Int : 168 ms QRS Dur : 098 ms QT Int : 372 ms P-R-T Axes : 064 063 067 degrees QTc Int : 432 ms Normal sinus rhythm Normal ECG Confirmed by RICHARD JAEGER, TEX ([id number]), acquisitions editor CHRISTINE MILLER ([id number]) on 02/26/2018 3:21:00 PM Referred By: BB Confirmed By:TEX COKER MD 02/26/18 1521 Date Tex Coker MD CC: Valery Khanna; NAVJOT TEJEDA MD; Mian Wilburn III, MD Signed BEDSIDE GLUCOSE Collected: 02/26/2018 Status: F Source: [place] 11:41 AM [facility] REPOSITORY TYPE CODE TESTS RESULT OUT OF REFERENCE UNITS RANGE LAB L501.080 70-110 mg/dL High BEDSIDE GLU 114 Result Comment: MANAGEMENT OF PATIENT CARE PER NURSING PROTOCOL Performed By: #### L501.080 #### [facility] Laboratory Point of Care [address] [facility] [place] [address] ECHO, COMPLETE W/ Observed: 02/26/2018 Status: F Source: [place] CONTR[facility] 9:17 AM [facility] REPOSITORY [facility] Cardiovascular Services [address] [facility] [place] [address] Echo Complete W/ Contrast 02/26/18 0814 MR#: [id number] Acct: [id number] Name: NOMAN STONE Rep #: [id number] : 1955 62 From: Tex Coker MD Attending Dr: Valery Khanna Status: ADM IN Ordering Dr: Valery Khanna Date: 02/25/18 Location: [facility] Sex: M C Admitted: 02/25/18 Reason For Study: CAD,ASHD, NSTEMI Procedure This was a 2D Doppler, Color Flow transthoracic echocardiogram. The study was technically difficult. Contrast injection was performed. Exam performed in department. Left Ventricle Normal LV size. Segmental dysfunction with preserved ejection fraction (see wall motion). The estimated ejection fraction is 60 %. Post operative septal motion. Diastolic function is indeterminate. Infero-Basal: Hypokinetic. Basal inferoseptal: Hypokinetic. Mid-Anterior : Hypokinetic. Mid-Inferior: Hypokinetic. Mid-inferoseptal : Hypokinetic. Mid-anteroseptal : Hypokinetic. Right Ventricle Normal RV size. Normal systolic function. Atria Normal left atrium. Normal right atrium. No doppler evidence for ASD. Mitral Valve There is no mitral annular calcification. Normal mitral valve. Trivial mitral valve insufficiency. Tricuspid Valve Normal tricuspid valve. Trivial tricuspid valve insufficiency. Unable to estimate RV systolic pressure/pulmonary artery pressure due to technically difficult study. Aortic Valve Trisinus/trileaflet aortic valve. Mild focal aortic valve calcification. Pulmonic Valve The pulmonic valve is not well visualized. Great Vessels Normal sized aortic root. Pericardium/Pleural No pericardial effusion. Medication Diluted definity 3.0ml given slow IV push to enhance endocardial definition. MMode/2D Measurements AND Calculations LVIDd: 4.6 cm IVSd: 0.92 cm Ao root diam: 3.5 cm LVIDs: 3.3 cm LVPWd: 0.89 cm RVDd: 3.4 cm FS: 28.5 % LAV(MOD-bp): 43.7 ml LA A4 area: 13.4 cm2 LA dimension(2D): 3.7 cm LAV(MOD-bp) Indexed: 20.2 ml/m2 LAV(MOD-sp2): 46.5 ml LAV(MOD-sp4): 34.5 ml RA A4 area: 12.9 cm2 Time Measurements MV dec time: 0.15 sec Doppler Measurements AND Calculations MV E max guerita: 83.1 cm/sec Lat Peak E' Guerita: 9.8 cm/sec Med Peak E' Guerita: 4.8 cm/sec MV A max guerita: 71.0 cm/sec E/E' lat: 8.5 E/E' med: 17.4 MV E/A: 1.2 Ao V2 max: 130.0 cm/sec LV V1 max: 93.2 cm/sec PA V2 max: 72.3 cm/sec Ao max P.8 mmHg LV V1 max P.5 mmHg Interpretation Summary The study was technically difficult. Contrast injection was performed. Segmental dysfunction with preserved ejection fraction (see wall motion). The estimated ejection fraction is 60 %. Post operative septal motion. Trivial mitral valve insufficiency. Trivial tricuspid valve insufficiency. Mild focal aortic valve calcification. Unable to estimate RV systolic pressure/pulmonary artery pressure due to technically difficult study. Diastolic function is indeterminate. Ordering Physician: Valery Khanna Referring Physician: MIROSLAVA Wilburn M.D. Performed By: Keyshawn, Marilee, RDCS, RVT 02/26/18915 Date eTx Coker MD CC: Valery Khanna; Mian Wilburn III, MD Date Dictated: 02/26/18813 Date Transcribed: 02/26/18915 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: Signed BEDSIDE GLUCOSE Collected: 02/26/2018 Status: F Source: [place] 7:14 AM [facility] REPOSITORY TYPE CODE TESTS RESULT OUT OF REFERENCE UNITS RANGE LAB L501.080 70-110 mg/dL High BEDSIDE GLU 142 Result Comment: MANAGEMENT OF PATIENT CARE PER NURSING PROTOCOL Performed By: #### L501.080 #### [facility] Laboratory Point of Care [address] [place] [address] CBC-COMPLETE BLOOD CNT Collected: 02/26/2018 Status: F Source: [place] NO DIFF 5:10 AM [facility] REPOSITORY TYPE CODE TESTS RESULT OUT OF RANGE REFERENCE UNITS LAB L100.1000 4.4-11.0 K/mm3 Normal WBC 9.5 LAB L100.1200 4.6-6.2 M/mm3 Normal RBC 4.95 LAB L100.1300 13.0-16.5 g/dl Normal HGB 14.5 LAB L100.1400 40-54 % Normal HCT 44.0 LAB L100.1500 80-94 fL Normal MCV 88.9 LAB L100.1600 27.0-32.0 pg Normal MCH 29.3 LAB L100.1700 32-36 g/gl Normal MCHC 33.0 LAB L100.1810 11.6-14.6 % High RDW CV 15.2 LAB L100.1820 35.1-43.9 fl High RDW SD 49.5 LAB L100.1900 150-450 K/mm3 Normal PLT 193 LAB L100.2000 6.2-12.0 fl Normal MPV 9.6 Performed By: #### L100.0500 #### [facility] [address] [facility] [place], [place], [address] PROTHROMBIN TIME W/INR Collected: 02/26/2018 Status: F Source: [place] 5:10 AM [facility] REPOSITORY TYPE CODE TESTS RESULT OUT OF RANGE REFERENCE UNITS LAB L300.4150 11.7-14.9 SECONDS High PROTIME 18.7 LAB L300.4200 Normal INR 1.6 Performed By: #### L300.3900, L300.4310 #### [facility] Laboratory [address] [place], [place], [address] PARTIAL THROMBOPLAST Collected: 02/26/2018 Status: F Source: [place] TIME 5:10 AM [facility] REPOSITORY TYPE CODE TESTS RESULT OUT OF RANGE REFERENCE UNITS LAB L300.4310 24.1-36.2 Seconds Normal PTT 32.8 Performed By: #### L300.3900, L300.4310 #### [facility] [address] [place], [place], [address] BASIC METABOLIC Collected: 02/26/2018 Status: F Source: [place] PROFILE ([facility]) 5:10 AM [facility] REPOSITORY TYPE CODE TESTS RESULT OUT OF RANGE REFERENCE UNITS LAB L501.0100 74-106 mg/dL High GLU 140 Result Comment: Fasting Glucose result greater than or equal to 126 mg/dL suggests DIABETES MELLITUS per A.D.A. criteria. Please note revised GLUCOSE reference range effective 2017. LAB L501.1000 7-18 mg/dL Normal BUN 18 LAB L501.1100 0.70-1.30 mg/dL High CREAT,SERUM 1.31 Result Comment: The validity of the calculated GFR AND GFRAA in patients over 70 years has not been determined. Clinical correlation is essential. LAB L501.1110 >60 mL/min Low EST GFR 59 Result Comment: Non- GFR Calc LAB L501.1115 >60 mL/min Normal EST GFR - AA 71 Result Comment: GFR Calc LAB L501.1255 ml/min Normal Estimated CRCL 55.84 LAB L501.1300 10-20 RATIO Normal BUN/CRE 13.7 LAB L501.2200 8.5-10 mg/dL Normal .1 CA 8.8 LAB L501.5300 136-14 mmol/L Normal 5 NA 141 LAB L501.5600 3.5-5. mmol/L Normal 1 K 4.3 LAB L501.5900 98-107 mmol/L Normal CL 103 LAB L501.6100 21.0-3 mmol/L Normal 2.0 CO2 30.0 LAB L501.6200 5-15 Normal GAP 8 Performed By: #### L500.2500 #### [facility] [address] [facility] [address] [facility] [address] MAGNESIUM Collected: 02/26/2018 Status: F Source: [place] 5:10 AM [facility] REPOSITORY TYPE CODE TESTS RESULT OUT OF RANGE REFERENCE UNITS LAB L501.5200 1.6-2.6 mg/dL Normal MG 2.3 Performed By: #### L501.5200 #### [facility] [address] [facility] [place], [address] BEDSIDE GLUCOSE Collected: 02/25/2018 Status: F Source: [place] 9:46 PM [facility] REPOSITORY TYPE CODE TESTS RESULT OUT OF REFERENCE UNITS RANGE LAB L501.080 70-110 mg/dL High BEDSIDE GLU 213 Result Comment: MANAGEMENT OF PATIENT CARE PER NURSING PROTOCOL Performed By: #### L501.080 #### [facility] Laboratory Point of Care [address] [facility] [place] [address] CONSULTATION Observed: 02/25/2018 Status: F Source: [place] 4:48 PM [facility] REPOSITORY [facility] Medical Records Department [address] [place] [address] Consultation 02/25/18 0847 MR#: [id number] Acct: [id number] Name: NOMAN STONE Rep #: [id number] : 1955 62 From: Tex Coker MD PCP: Mian Wilburn III, MD Status: ADM IN Y Location: [place] [id number] Problem List (1) NSTEMI (non-ST elevated myocardial infarction) Status: Acute (2) CAD (coronary artery disease) Status: Chronic (3) Presence of stent in coronary artery Status: Chronic Comment: PCI/stent to prox/distal RCA 2008; PCI/Stent to mid RCA and PCi of the PDA 04/20/15 (4) H/O coronary artery bypass surgery Status: Chronic Comment: CABG x5- MANCERA to LAD, SVG to Ramus, SVG to PDA, SVG to PLV, SVG to OM, PV isolation, left atrial appendage excision 09/21/17 (5) Paroxysmal atrial fibrillation Status: Chronic (6) HLD (hyperlipidemia) Status: Chronic Qualifiers: Hyperlipidemia type: unspecified Qualified Code(s): E78.5 - Hyperlipidemia, unspecified (7) Hypertension Status: Chronic Qualifiers: Hypertension type: essential hypertension Qualified Code(s): I10 - Essential (primary) hypertension (8) Type 2 diabetes mellitus Status: Chronic Qualifiers: Diabetes mellitus intermediate manager insulin use: unspecified intermediate manager insulin use status Diabetes mellitus complication status: with unspecified complications Qualified Code(s): E11.8 - Type 2 diabetes mellitus with unspecified complications (9) Renal insufficiency Status: Chronic Reason for Consult Date of Consultation: 02/25/18 History of Present Illness: The patient is a 62 year old white male with a past medical history of CAD, PCI, CABG, paroxysmal atrial fibrillation, superimposed on hyperlipidemia, hypertension, and diabetes mellitus who is referred for evaluation of chest discomfort concerning for angina pectoris and abnormal cardiac enzymes concerning for a non-ST segment elevation LA. The patient has noted, since his last outpatient cardiovascular visit, that during cardiac rehabilitation he has had exercise related chest discomfort. 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 He had been attributing his chest discomfort concerns to gastrointestinal related discomfort as he states he is oftentimes had chest discomfort with episodes of constipation. 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 He was taken to the emergency department for further evaluation. There he was evaluated and treated with nitroglycerin sublingual x3. His discomfort dissipated. He was subsequently placed in the hospital for further evaluation and care. He is undergone cardiac enzyme studies which have demonstrated abnormal troponin I levels. His ECG demonstrated sinus rhythm with no acute ECG changes x2. He has been referred for further cardiovascular evaluation with consideration to diagnostic cardiac catheterization. In the interim he states when he is not having his discomfort he has been feeling well. He has denied orthopnea or PND. He has trace to mild bilateral ankle edema more so on the left than the right. He has had no near syncope or syncope. [] Past Medical History Allergies/Adverse Reactions: Allergies adhesive Allergy (Verified 02/24/18 23:11) Unknown lisinopril Allergy (Verified 02/24/18 23:11) Unknown Penicillins Allergy (Verified 02/24/18 23:11) Unknown Home Medications: Ambulatory Orders Medication Instructions Recorded Clopidogrel Bisulfate [Plavix] 75 mg PO DAILY 02/07/13 Nitroglycerin [Nitrostat] 0.4 mg SUBLINGUAL Q5M PRN 02/07/13 Past Medical History (Chronic Problems): Chronic Problems (Last Reviewed 02/25/18 @ 08:18 by Boni Renae MD) Renal insufficiency (Chronic) CAD (coronary artery disease) (Chronic) Presence of stent in coronary artery (Chronic) PCI/stent to prox/distal RCA 2008; PCI/Stent to mid RCA and PCi of the PDA 04/20/15 Atherosclerotic heart disease of [place] coronary artery without angina pectoris (Chronic) PCI/stent to prox/distal RCA 2008; PCI/Stent to mid RCA and PCi of the PDA 04/20/15; CABG x5- MANCERA to LAD, SVG to Ramus, SVG to PDA, SVG to PLV, SVG to OM, PV isolation, left atrial appendage excision 09/21/17 Paroxysmal atrial fibrillation (Chronic) H/O coronary artery bypass surgery (Chronic 09/21/17) CABG x5- MANCERA to LAD, SVG to Ramus, SVG to PDA, SVG to PLV, SVG to OM, PV isolation, left atrial appendage excision 09/21/17 Type 2 diabetes mellitus (Chronic) Hypertension (Chronic) PAD (peripheral artery disease) (Chronic) PCI/Stent L fem artery 11/26/07; PCI Rt fem 02/17/08; PCI Left pop and sup femoral artery 03/09/10; PCI Rt pop and Rt SFA 05/11/10; PCI bilat LE arteriogram w/angioplasty 10/03/10; PCI/LLE 07/17/11 HLD (hyperlipidemia) (Chronic) Surgical History: angioplasty - w/ cardiac stent x 4, coronary bypass surgery, - - right inguinal hernia, s/p iliac stents bilat - *Family History Paternal Family History: Family History (Last Reviewed 02/25/18 @ 08:19 by Boni Renae MD) Father Heart disease Grandmother Hypertension Grandfather Heart disease Myocardial infarction History Items: Heart Disease Maternal Family History: Family History (Last Reviewed 02/25/18 @ 08:19 by Boni Renae MD) Father Heart disease Grandmother Hypertension Grandfather Heart disease Myocardial infarction History Items: Unknown Lives: Spouse/ Significant Other Smoking Status: Never smoker Alcohol: None Drugs: None Review of Systems - Review of Systems General: Denies: Fever, Night Sweats, Fatigue Cardiovascular: Reports: Chest Discomfort at Rest. Denies: Chest Discomfort, Shortness of Breath, Orthopnea, PND, Peripheral Edema, Palpitations, Lightheadedness, Dizziness, Near Syncope, Syncope Respiratory: Denies: Cough, Sputum Production, Hemoptysis Gastrointestinal: Reports: Indigestion, Constipation. Denies: Hematemesis, Hematochezia, Melena Genitourinary: Denies: Dysuria, Hematuria Skin: Denies: Rash Subjectve: Is a 62-year-old white male who appears to be resting comfortably at the moment in no acute distress. Objective: Vital Signs Temp Pulse Resp BP Pulse Ox 97.7 F L 66 16 132/84 H 97 02/25/18 06:18 02/25/18 06:21 02/25/18 06:18 02/25/18 06:21 02/25/18 06:42 Oxygen Flow Rate (L/min) 2 Oxygen Delivery Method Room Air Weight: 229 lb 4.492 oz Body Mass Index (BMI) 34.8 Intake and Output for Last 24 Hours Intake Total 0 / 0 Balance 0 / 0 General: Awake, Alert, Oriented x 3, Cooperative, No Acute Distress HEENT: Atraumatic, Normocephalic, PERRL, EOMI Oral: Moist Mucosa Neck: Supple, Good ROM Lungs: Clear to auscultation Cardiovascular: Regular Rhythm, Normal S1, Normal S2 Abdomen: Bowel Sounds Present, Soft, Non Tender Extremities: Trace LLE Edema Neurological: No Focal Motor or Sensory Deficit Psych/Mental Status: Appropriate 02/24/18 23:50: WBC 8.1, RBC 4.75, Hgb 14.0, Hct 42.1, MCV 88.6, MCH 29.5, MCHC 33.3, RDW 15.3 H, RDW Differential 50.0 H, Plt Count 180, MPV 9.9, Immature Gran % (Auto) 0.500, Neut % (Auto) 68.3, Lymph % (Auto) 22.5, [place] % (Auto) 6.1, Eos % (Auto) 2.5, Baso % (Auto) 0.1, Absolute Neuts (auto) 5.5, Total Counted Not Reportable 02/24/18 23:50: Sodium 139, Potassium 4.1, Chloride 104, Carbon Dioxide 28.0, Anion Gap 7, BUN 21 H, Creatinine 1.90 H, Est GFR (MDRD) Af Amer 46 L, Est GFR (MDRD) Non-Af 38 L, BUN/Creatinine Ratio 11.1, Glucose 300 H, Calcium 8.6, Troponin I 0.020 02/24/18 23:50: PT 24.0 H, INR 2.1 02/25/18 03:50: Troponin I 1.010 H* 02/25/18 06:00: Troponin I 1.680 H* 02/25/18 06:00: Sodium Cancelled, Potassium Cancelled, Chloride Cancelled, Carbon Dioxide Cancelled, Anion Gap Cancelled, BUN Cancelled, Creatinine Cancelled, Est GFR (MDRD) Af Amer Cancelled, Est GFR (MDRD) Non-Af Cancelled, BUN/Creatinine Ratio Cancelled, Glucose Cancelled, Calcium Cancelled, Triglycerides 309 H, Cholesterol 153, LDL Cholesterol 57, VLDL Cholesterol 62 H, HDL Cholesterol 34 L 02/25/18 06:00: PT 24.4 H, INR 2.2 02/25/18 06:00: APTT 37.6 H 02/25/18 06:00: Sodium 142, Potassium 4.4, Chloride 104, Carbon Dioxide 29.0, Anion Gap 9, BUN 19 H, Creatinine 1.53 H, Est GFR (MDRD) Af Amer 59 L, Est GFR (MDRD) Non-Af 49 L, BUN/Creatinine Ratio 12.4, Glucose 125 H, Calcium 9.7, Total Bilirubin 0.80 Rhythm: Sinus rhythm EKG: Sinus rhythm; no acute ECG changes ECHO: 09/10/2017: Left ventricle normal with an LVEF of 60% Stress Test: 09/10/2017: Pharmacologic myocardial perfusion stress test: Considered abnormal with evidence of inferolateral ischemia Cardiac Cath: 09/10/2017: Left ventricle considered normal with an LVEF of 65%; left main coronary artery with mild calcification and mild luminal irregularity; LAD with mild calcification and proximal 50% stenosis; mid LAD with 85% stenosis; LCx with mild calcification with a second OM demonstrating 85% stenosis; RCA being previously stented with in-stent minimal luminal irregularities with the right PDA having 85% stenosis in the right AV segment being subtotally occluded; left to right collateral flow CT Surgery: 09/21/2017: [facility]: MANCERA to the LAD, SVG to the OM, SVG to the intermediate ramus, SVG to the PDA/PL, and a left atrial appendage excision CXR: Preliminary evaluation: No acute cardiopulmonary disease process; post open heart surgery changes: Please see official report Assessment/Plan 1. Non-ST segment elevation LA The patient presents with symptoms concerning for angina pectoris. He has had objective findings with abnormal cardiac enzymes. His clinical scenario and objective findings are concerning for an acute non-ST segment elevation LA. He is being followed by cardiac rhythm, cardiac enzymes, and ECG. He will continue medical management. He is being referred for further evaluation with diagnostic cardiac catheterization once his INR level has decreased. 2. CAD status post PCI status post CABG The patient has a history of extensive underlying cardiovascular disease as previously noted. Again there are concerns based on his recent symptoms and his objective findings with abnormal troponin I levels of an acute non-ST segment elevation LA. The plan is for reevaluation with diagnostic cardiac catheterization once his INR level has improved. 4. Hyperlipidemia The patient will continue lipid-lowering therapy as deemed appropriate. 5. Hypertension The patient will continue antihypertensive therapy as deemed appropriate. 5. Diabetes mellitus The patient will continue under the care of internal medicine. 6. Renal insufficiency The patient's creatinine level was elevated upon evaluation in the emergency department. It has improved. He will continue to be followed with respect to his renal function with respect to upcoming invasive evaluation requiring IV contrast. 02/25/18 1409 <Electronically signed by Tex Coker MD> Date Tex Coker MD Cosigner Signature (if applicable): Date CC: Mian Wilburn III, MD; Tex Coker MD Signed BEDSIDE GLUCOSE Collected: 02/25/2018 Status: F Source: [place] 4:26 PM [facility] REPOSITORY TYPE CODE TESTS RESULT OUT OF REFERENCE UNITS RANGE LAB L501.080 70-110 mg/dL High BEDSIDE GLU 140 Result Comment: MANAGEMENT OF PATIENT CARE PER NURSING PROTOCOL Performed By: #### L501.080 #### [facility] Point of Care [address] [facility] [facility]. [place], [place] [address] PROTHROMBIN TIME W/INR Collected: 02/25/2018 Status: F Source: [place] 3:55 PM [facility] REPOSITORY TYPE CODE TESTS RESULT OUT OF RANGE REFERENCE UNITS LAB L300.4150 11.7-14.9 SECONDS High PROTIME 24.6 LAB L300.4200 Normal INR 2.2 Performed By: #### L300.3900 #### [facility] [address] [place], [address] URINALYSIS, COMPLETE Collected: 02/25/2018 Status: F Source: [place] 1:30 PM [facility] REPOSITORY Order Comment: How was Urine Obtained? SCALEMAN TO SPECIFY TYPE CODE TESTS RESULT OUT OF RANGE REFERENCE UNITS LAB L400.3000 Yellow COLOR Normal Yellow LAB L400.3050 Clear Normal CLARITY Clear LAB L400.3200 Normal mg/dl High GLUCOSE, UR 100 LAB L400.3300 Negative mg/dL Normal BILIRUBIN URINE Negative LAB L400.3400 Negative mg/dl Normal KETONE UR Negative LAB L400.3465 1.002-1.030 Normal SP.GR. DIPSTX 1.020 LAB L400.3550 5.0 - 8.0 pH UR Normal 6.5 LAB L400.3600 Negative mg/dl High PROT 15 DIPSTX LAB L400.3700 Normal mg/dl Normal UROBILI Normal LAB L400.3750 Negative Normal NITRITE UR Negative LAB L400.3780 Negative /ul Normal OCCULT BLOOD-UR Negative LAB L400.3800 Negative /ul LEUK Normal ESTERASE Negative LAB L400.4050 0-5 /hpf WBC 0 Normal SEEN LAB L400.4100 0-5 /hpf 0 Normal RBC-UA SEEN LAB L400.4150 0-5 /hpf SQUAM Normal EPI 0-5 SEEN LAB L400.4300 None Seen /hpf 0 Normal BACTERIA SEEN LAB L400.4350 <or=2+ /hpf 0 Normal MUCUS, URINE SEEN Performed By: #### L400.0001 #### [facility] [address] [place], [address] BEDSIDE GLUCOSE Collected: 02/25/2018 Status: F Source: [place] 11:19 AM [facility] REPOSITORY TYPE CODE TESTS RESULT OUT OF REFERENCE UNITS RANGE LAB L501.080 70-110 mg/dL High BEDSIDE GLU 260 Result Comment: MANAGEMENT OF PATIENT CARE PER NURSING PROTOCOL Performed By: #### L501.080 #### [facility] Point of Care [address] [facility] [place] [address] TROPONIN-I Collected: 02/25/2018 Status: F Source: [place] 8:55 AM [facility] REPOSITORY TYPE CODE TESTS RESULT OUT OF RANGE REFERENCE UNITS LAB L501.4010 <0.045 ng/mL High alert 1.380 TROPONIN-I Result Comment: TROPONIN-I EXPECTED VALUES <0.045 Negative 0.045 - 0.590 Consistent with Cardiac Damage > OR = 0.600 Critical Value Not every elevated troponin is indicative of LA. These values should be used with clinical judgement in examining the patient's clinical picture for diagnosis. To establish a diagnosis of LA versus myocardial injury, there must be a demonstrated rise and/or fall in the troponin values, in addition to ischemic symptoms, EKG changes, new regional wall motion abnormality, and/or angiographical evidence. PLEASE NOTE: REFERENCE RANGES EDITED 17 Performed By: #### L501.4010 #### [facility] [address] [facility] [place], [address] HISTORY AND PHYSICAL Observed: 02/25/2018 Status: F Source: [place] EXAM 8:22 AM [facility] REPOSITORY [facility] Medical Records Department [address] [place] [address] History and Physical 02/25/18 0142 MR#: [id number] Acct: [id number] Name: NOMAN STONE Rep #: [id number] : 1955 62 From: Boni Renae MD PCP: Mian Wilburn III, MD Status: ADM SAMMY Y Location: [place] [id number] Problem List (1) Chest pain, unspecified Status: Acute (2) Presence of stent in coronary artery Status: Chronic Comment: PCI/stent to prox/distal RCA 2008; PCI/Stent to mid RCA and PCi of the PDA 04/20/15 (3) Paroxysmal atrial fibrillation Status: Chronic (4) Type 2 diabetes mellitus Status: Chronic Qualifiers: Diabetes mellitus detention insulin use: unspecified intermediate manager insulin use status Diabetes mellitus complication status: with unspecified complications Qualified Code(s): E11.8 - Type 2 diabetes mellitus with unspecified complications (5) Bradycardia Status: Inactive History of Present Illness Date of Admission: 02/25/18 Chief Complaint: chest Pain The patient is a 62 year old M with a significant history of hypertension; paroxysmal A. fib; type 2 diabetes; PAD; GERD; hyperlipidemia; CAD status post stent and CABG who presented with 2 days history of progressively worsening continues substernal chest pain at rest which increases with exertion. His pain radiates to his left shoulder. 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 He went to work and his co-employees saw that he looked miserable due to his facial expression and advised him to go to the emergency department. He describes his pain as pressure-like and aching. His pain increases with taking a deep breath. At emergency department he was given nitroglycerin sublingual which helped with his pain. Subsequently nitroglycerin paste was placed on his chest. Patient denies any associated nausea, vomiting or diaphoresis. As stated above he had a 5 vessel CABG on September 21 of this year. He has 4 stents in his coronary vessels. Three stents were placed in 2008. And one stent was placed in 2014. At emergency department Dr. Coker was consulted. Per emergency department doctor Dr. Coker will consider sending patient to cardiac cath. Past Medical History Past Medical History (Chronic Problems): Chronic Problems (Last Reviewed 02/25/18 @ 08:18 by Boni Renae MD) Presence of stent in coronary artery (Chronic) PCI/stent to prox/distal RCA 2008; PCI/Stent to mid RCA and PCi of the PDA 04/20/15 Atherosclerotic heart disease of [place] coronary artery without angina pectoris (Chronic) PCI/stent to prox/distal RCA 2008; PCI/Stent to mid RCA and PCi of the PDA 04/20/15; CABG x5- MANCERA to LAD, SVG to Ramus, SVG to PDA, SVG to PLV, SVG to OM, PV isolation, left atrial appendage excision 09/21/17 Paroxysmal atrial fibrillation (Chronic) H/O coronary artery bypass surgery (Chronic 09/21/17) CABG x5- MANCERA to LAD, SVG to Ramus, SVG to PDA, SVG to PLV, SVG to OM, PV isolation, left atrial appendage excision 09/21/17 Type 2 diabetes mellitus (Chronic) Hypertension (Chronic) PAD (peripheral artery disease) (Chronic) PCI/Stent L fem artery 11/26/07; PCI Rt fem 02/17/08; PCI Left pop and sup femoral artery 03/09/10; PCI Rt pop and Rt SFA 05/11/10; PCI bilat LE arteriogram w/angioplasty 10/03/10; PCI/LLE 07/17/11 HLD (hyperlipidemia) (Chronic) Medical History: Medical History (Last Reviewed 02/25/18 @ 08:18 by Boni Renae MD) Atherosclerotic heart disease of [place] coronary artery without angina pectoris (Chronic) I25.10 PCI/stent to prox/distal RCA 2008; PCI/Stent to mid RCA and PCi of the PDA 04/20/15; CABG x5- MANCERA to LAD, SVG to Ramus, SVG to PDA, SVG to PLV, SVG to OM, PV isolation, left atrial appendage excision 09/21/17 Paroxysmal atrial fibrillation (Chronic) I48.0 Bradycardia (Acute) R00.1 Type 2 diabetes mellitus (Chronic) E11.9 Hypertension (Chronic) I10 PAD (peripheral artery disease) (Chronic) I73.9 PCI/Stent L fem artery 11/26/07; PCI Rt fem 02/17/08; PCI Left pop and sup femoral artery 03/09/10; PCI Rt pop and Rt SFA 05/11/10; PCI bilat LE arteriogram w/angioplasty 10/03/10; PCI/LLE 07/17/11 HLD (hyperlipidemia) (Chronic) E78.5 Acute renal failure (Acute) GERD (gastroesophageal reflux disease) K21.9 Raynauds disease I73.00 Allergies adhesive Allergy (Verified 02/24/18 23:11) Unknown lisinopril Allergy (Verified 02/24/18 23:11) Unknown Penicillins Allergy (Verified 02/24/18 23:11) Unknown Home Medications: Ambulatory Orders Medication Instructions Recorded Clopidogrel Bisulfate [Plavix] 75 mg PO DAILY 02/07/13 Nitroglycerin [Nitrostat] 0.4 mg SUBLINGUAL Q5M PRN 02/07/13 Surgical History: Surgical History (Last Reviewed 02/25/18 @ 08:18 by Boni Renae MD) Presence of stent in coronary artery (Chronic) Z95.5 PCI/stent to prox/distal RCA 2008; PCI/Stent to mid RCA and PCi of the PDA 04/20/15 H/O coronary artery bypass surgery (Chronic) Onset Date: 09/21/17 Z95.1 CABG x5- MANCERA to LAD, SVG to Ramus, SVG to PDA, SVG to PLV, SVG to OM, PV isolation, left atrial appendage excision 09/21/17 History of angioplasty of peripheral vessel Z98.62 PCI/Stent L fem artery 11/26/07; PCI Rt fem 02/17/08; PCI Left pop and sup femoral artery 03/09/10; PCI Rt pop and Rt SFA 05/11/10; PCI bilat LE arteriogram w/angioplasty 10/03/10; PCI/LLE 07/17/11 Postsurgical percutaneous transluminal coronary angioplasty (PTCA) status Z98.61 PCI/stent to prox/distal RCA 2008; PCI/Stent to mid RCA and PCi of the PDA 04/20/15 History of inguinal hernia repair Z98.890, Z87.19 Surgical History: angioplasty - w/ cardiac stent x 4, coronary bypass surgery, - - right inguinal hernia, s/p iliac stents bilat Lives: Spouse/ Significant Other Smoking Status: Never smoker - *Family History Paternal Family History: Family History (Last Reviewed 02/25/18 @ 08:19 by Boni Renae MD) Father Heart disease Grandmother Hypertension Grandfather Heart disease Myocardial infarction History Items: Heart Disease Maternal Family History: Family History (Last Reviewed 02/25/18 @ 08:19 by Boni Renae MD) Father Heart disease Grandmother Hypertension Grandfather Heart disease Myocardial infarction History Items: Unknown Review of Systems Constitutional: Denies: Chills, Fever, Weight Change HEENT: Denies: Head Aches, Sinus Congestion, Sinus Drainage Cardiovascular: Reports: Chest Pain. Denies: Palpitations Respiratory: Denies: Cough, Shortness of breath at rest, Sputum production Gastrointestinal: Denies: Abdominal Pain, Nausea, Vomiting Genitourinary: Denies: Dysuria Musculoskeletal: Reports: Shoulder Pain - Left. Denies: Joint Pain, Joint Tenderness Skin: Denies: Rash, Wounds Neurological: Denies: Numbness, Tingling, Focal weakness Psychiatric: Denies: Anxiety, Depression, Homicidal Ideations, Suicidal Ideations Hematologic/ Lymphatic: Denies: Easy Bruising, Easy Bleeding VTE Information - Inpt Only VTE Present on Admission: No VTE Mechan Device Prophylaxis: None VTE Pharm Prophylaxis ordered?: Yes Patient Problems: Active and Suspected Problems (Last Reviewed 02/25/18 @ 08:18 by Boni Renae MD) Chest pain, unspecified (Acute) Renal insufficiency (Acute) - Physical Exam General: Alert, Oriented x3, Cooperative HEENT: Atraumatic, PERRLA, EOMI, Normocephalic Neck: Supple, No JVD, Negative Carotid Bruits Lungs: Clear to auscultation, Normal air movement Cardiovascular: Regular rate, No murmurs Abdomen: Bowel Sounds Present, Soft, Non Tender Extremities: No edema, Capillary Refill Less than 3 Seconds Skin: No rashes, No breakdown Musculoskeletal: No Tenderness to Palpation of Joints or Extremities Neurological: Cranial nerves II-XII grossly intact Psych/Mental Status: Normal Affect, Appropriate Vital Signs Temp Pulse Resp BP Pulse Ox 97.4 F L 72 16 134/84 H 96 02/24/18 23:11 02/25/18 01:38 02/25/18 01:00 02/25/18 01:38 02/25/18 01:00 Oxygen Flow Rate (L/min) 2 Oxygen Delivery Method Nasal Cannula Weight: 105.7 kg Body Mass Index (BMI) 35.4 Laboratory Tests Past 24 Hrs Assessment/Plan All Active Problems (Last Reviewed 02/25/18 @ 08:18 by Boni Renae MD) Chest pain, unspecified (Acute) Renal insufficiency (Acute) Acute renal failure (Acute) The patient is a 62 year old M with a significant history of hypertension; paroxysmal A. fib; type 2 diabetes; PAD; GERD; hyperlipidemia; CAD status post stent and CABG who presented with 2 days history of progressively worsening continues substernal chest pain at rest which increases with exertion and found to have elevated troponins Non-ST elevation LA Admit to a monitored bed on PCU CXR independently reviewed confirms mild primary congestion EKG independently reveiwed confirms sinus rhythm Patient takes Coumadin and Plavix. Plavix continued. Of note patient is not on home aspirin. And aspirin has not been started at this time. Next Coumadin will be due 5 PM today 02/25/2018. Hold Coumadin for now and make further determination after cath. Nitroglycerin paste placed Serial cardiac enzymes shows non-ST elevation LA Stat EKG as needed for chest pain Lipid panel ordered. Cardiology consult. VU over CKD On admission his creatinine was 1.90. His baseline creatinine is about 1.4. IV hydration. Cautious use of IV hydration as patient has primary congestion on x-ray. Trend BMP Diabetes mellitus BMP on admission showed blood glucose of 300. Four units of subcutaneous lispro was ordered. However Accu-Chek showed blood glucose of 126 so lispro was not given. Patient takes 30 units of Lantus at home and dulaglutide every week on Saturdays. We will hold Lantus at this time. Patient n.p.o. for likely cardiac cath. Correction scale insulin ordered. PAD with stents Continue Plavix. Hold Coumadin until after cath. Paroxysmal A. fib Hold Coumadin until after cath. Repeat INR in a.m. Hypertension Patient reports that he is not on home medication and his blood pressure is well controlled at this time. On admission his blood pressure is slightly above goal. Trend blood pressures. DVT prophylaxis INR therapeutic at this time. Last dose of Coumadin was yesterday. Anticoagulation determination to be made after cath. SCD ordered. Code Visit OBSV E AND M: [id number] Initial observation care L3 02/25/18821 <Electronically signed by Boni Renae MD> Date Boni Renae MD Cosigner Signature: Date (if applicable) CC: Mian Wilburn III, MD; Boni Renae MD Signed TROPONIN-I Collected: 02/25/2018 Status: F Source: [place] 6:00 AM [facility] REPOSITORY Order Comment: 'TROP' Serial specimen #1, #2 or #3: 3 TYPE CODE TESTS RESULT OUT OF RANGE REFERENCE UNITS LAB L501.4010 <0.045 ng/mL High alert 1.680 TROPONIN-I Result Comment: Critical Result(s) Called at: 06:58:08 02/25/2018 by: Sid Talley RN ([facility]). TROPONIN-I EXPECTED VALUES <0.045 Negative 0.045 - 0.590 Consistent with Cardiac Damage > OR = 0.600 Critical Value Not every elevated troponin is indicative of LA. These values should be used with clinical judgement in examining the patient's clinical picture for diagnosis. To establish a diagnosis of LA versus myocardial injury, there must be a demonstrated rise and/or fall in the troponin values, in addition to ischemic symptoms, EKG changes, new regional wall motion abnormality, and/or angiographical evidence. PLEASE NOTE: REFERENCE RANGES EDITED 17 Performed By: #### L501.4010 #### [facility] [address] [facility] [facility]. [place], [place], [address] PROTHROMBIN TIME W/INR Collected: 02/25/2018 Status: F Source: [place] 6:00 AM [facility] REPOSITORY TYPE CODE TESTS RESULT OUT OF RANGE REFERENCE UNITS LAB L300.4150 11.7-14.9 SECONDS High PROTIME 24.4 LAB L300.4200 Normal INR 2.2 Performed By: #### L300.3900 #### [facility] [address] [facility] [place], [address] COMPREHENSIVE METABOLIC Collected: 02/25/2018 Status: F Source: [place] PROFIL 6:00 AM [facility] REPOSITORY TYPE CODE TESTS RESULT OUT OF RANGE REFERENCE UNITS LAB L501.0100 74-106 mg/dL High GLU 125 Result Comment: Fasting Glucose result from 100 to 125 mg/dL suggests IMPAIRED HOMEOSTASIS per A.D.A. criteria. Please note revised GLUCOSE reference range effective 2017. LAB L501.1000 7-18 mg/dL High BUN 19 LAB L501.1100 0.70-1.30 mg/dL High CREAT,SERUM 1.53 Result Comment: The validity of the calculated GFR AND GFRAA in patients over 70 years has not been determined. Clinical correlation is essential. LAB L501.1110 >60 mL/min Low EST GFR 49 Result Comment: Non- GFR Calc LAB L501.1115 >60 mL/min Low EST GFR - AA 59 Result Comment: GFR Calc LAB L501.1255 ml/min Normal Estimated CRCL 47.81 LAB L501.1300 10-20 RATIO Normal BUN/CRE 12.4 LAB L501.1500 6.4-8. g/dL Normal 2 T PROT 7.6 LAB L501.1800 3.2-5. g/dL Normal 0 ALB 3.6 LAB L501.1950 2.2-4. g/dL Normal 2 GLOB 4.0 LAB L501.2000 0.9-2. RATIO Normal 4 A/G 0.9 LAB L501.2200 8.5-10 mg/dL Normal .1 CA 9.7 LAB L501.4100 15-37 U/L Normal AST 30 LAB L501.4305 45-117 U/L Normal ALK P 66 LAB L501.4405 16-61 U/L Normal ALT 33 LAB L501.4600 0.20-1 mg/dL Normal .00 T BILI 0.80 LAB L501.5300 136-14 mmol/L Normal 5 NA 142 LAB L501.5600 3.5-5. mmol/L Normal 1 K 4.4 LAB L501.5900 98-107 mmol/L Normal CL 104 LAB L501.6100 21.0-3 mmol/L Normal 2.0 CO2 29.0 LAB L501.6200 5-15 Normal GAP 9 Performed By: #### L500.4050 #### [facility] [address] [place], [address] PARTIAL THROMBOPLAST Collected: 02/25/2018 Status: F Source: [place] TIME 6:00 AM [facility] REPOSITORY TYPE CODE TESTS RESULT OUT OF REFERENCE UNITS RANGE LAB L300.4310 24.1-36.2 Seconds High PTT 37.6 Performed By: #### L300.4310 #### [facility] [address] [place], [place], [address] LIPID PROFILE Collected: 02/25/2018 Status: F Source: [place] 6:00 AM [facility] REPOSITORY TYPE CODE TESTS RESULT OUT OF RANGE REFERENCE UNITS LAB L501.4900 200 mg/dL Normal CHOL 153 Result Comment: <200 mg/dL Desirable 200-240 mg/dL Borderline >240 mg/dL High Risk LAB L501.5000 mg/dL High TRIG 309 Result Comment: The drugs N-Acetylcysteine and Metamizole may falsely depress this assay. Serum Triglycerides Reference Interval Normal <150 mg/dL Borderline high 150 - 199 mg/dL High 200 - 499 mg/dL Very High > or = 500 mg/dL LAB L501.6400 mg/dL Low HDL 34 Result Comment: The drugs N-Acetylcysteine and Metamizole may falsely depress this assay. Reference Range HDL <40 mg/dL Low HDL Cholesterol HDL >or= 60 mg/dL High HDL Cholesterol LAB L501.6500 0-130 mg/dL Normal LDL 57 LAB L501.6600 5-40 mg/dL High VLDL 62 Performed By: #### L500.4100 #### [facility] [address] [place], [place], [address] BEDSIDE GLUCOSE Collected: 02/25/2018 Status: F Source: [place] 5:16 AM [facility] REPOSITORY TYPE CODE TESTS RESULT OUT OF REFERENCE UNITS RANGE LAB L501.080 70-110 mg/dL High BEDSIDE GLU 126 Result Comment: MANAGEMENT OF PATIENT CARE PER NURSING PROTOCOL Performed By: #### L501.080 #### [facility] Point of Care [address] [facility] [facility] [place], [place] [address] TROPONIN-I Collected: 02/25/2018 Status: F Source: [place] 3:50 AM [facility] REPOSITORY Order Comment: 'TROP' Serial specimen #1, #2 or #3: 2 TYPE CODE TESTS RESULT OUT OF RANGE REFERENCE UNITS LAB L501.4010 <0.045 ng/mL High alert 1.010 TROPONIN-I Result Comment: Critical Result(s) Called at: 04:38:58 02/25/2018 by: Charlene Pelayo to Marcy CORMIER TROPONIN-I EXPECTED VALUES <0.045 Negative 0.045 - 0.590 Consistent with Cardiac Damage > OR = 0.600 Critical Value Not every elevated troponin is indicative of LA. These values should be used with clinical judgement in examining the patient's clinical picture for diagnosis. To establish a diagnosis of LA versus myocardial injury, there must be a demonstrated rise and/or fall in the troponin values, in addition to ischemic symptoms, EKG changes, new regional wall motion abnormality, and/or angiographical evidence. PLEASE NOTE: REFERENCE RANGES EDITED 17 Performed By: #### L501.4010 #### [facility] [address] [place], [address] EMERGENCY DEPARTMENT Observed: 02/25/2018 Status: F Source: [facility] SUMMARY 1:39 AM [facility] REPOSITORY [facility] Medical Records Department [address] [place] [address] Emergency Department Summary 02/24/18 2340 MR#: [id number] Acct: [id number] Name: NOMAN STONE Rep #: [id number] : 1955 62 From: Navjot Tejeda MD PCP: Mian Wilburn III, MD Status: REG ER ADDENDUM by NAVJOT TEJEDA MD on 02/25/18 at 0139 Aspirin was held since he is on Plavix and took it today, and anticoagulated with Coumadin. Also since he is anticoagulated, he was not given Lovenox, although his discomfort could certainly be unstable angina, which is the concern. 02/25/18 0139 Date Navjot Tejeda MD cc: Mian Wilburn III, MD * Signed History of Present Illness Chief Complaint: Chest Pain Informant: Patient Onset: Days - 2 Context: Gradual Onset Timing: Continuous Quality: tight Location: substernal w/ radiation into left chest and left shoulder/trapezius area Current Severity: Severe Maximum Severity: Severe Worsened by: exertion Relieved by: partially by rest, until past couple hrs Associated Symptoms: n/v 2d ago. sob. no sweating, palpitations, near-syncope. Narrative: Patient had a CABG about 4 months ago, he was not having chest pain just fatigue and had a diagnostic heart cath that was abnormal, sent to [facility] for the surgery. He had 4 stents prior to that, and peripheral vascular disease in his legs with stents for which he is currently still on Coumadin as well as clopidogrel. No history of venous thromboembolism, but he states for the past 1.5 weeks he has been having sharp pains in his right proximal medial thigh. No swelling downstream, but he has chronic swelling in his left leg since 4 months ago because of vein harvesting for CABG. He has chronic mild soreness in his sternum because of the surgery, states this is different. - Past Medical History (1) Paroxysmal atrial fibrillation Status: Chronic (2) Atherosclerotic heart disease of [place] coronary artery without angina pectoris Status: Chronic Comment: PCI/stent to prox/distal RCA 2008; PCI/Stent to mid RCA and PCi of the PDA 04/20/15; CABG x5- MANCERA to LAD, SVG to Ramus, SVG to PDA, SVG to PLV, SVG to OM, PV isolation, left atrial appendage excision 09/21/17 (3) HLD (hyperlipidemia) Status: Chronic (4) Hypertension Status: Chronic (5) PAD (peripheral artery disease) Status: Chronic Comment: PCI/Stent L fem artery 11/26/07; PCI Rt fem 02/17/08; PCI Left pop and sup femoral artery 03/09/10; PCI Rt pop and Rt SFA 05/11/10; PCI bilat LE arteriogram w/angioplasty 10/03/10; PCI/LLE 07/17/11 (6) Type 2 diabetes mellitus Status: Chronic Past Medical History - Allergies and Home Meds Allergies/Adverse Reactions: Allergies adhesive Allergy (Verified 02/24/18 23:11) Unknown lisinopril Allergy (Verified 02/24/18 23:11) Unknown Penicillins Allergy (Verified 02/24/18 23:11) Unknown Primary Care Physician: Mian Wilburn III, MD [Primary Care Provider] - Doctors: Dr. Coker Surgical History: angioplasty - w/ cardiac stent x 4, coronary bypass surgery, - - right inguinal hernia, s/p iliac stents bilat Smoking Status: Never smoker - Family History Paternal Family History: Family History (Last Reviewed 02/21/18 @ 13:07 by Khushbu Palomares) Father Heart disease Grandmother Hypertension Grandfather Heart disease Myocardial infarction Family History: Reports: Heart Disease Maternal Family History: Family History (Last Reviewed 02/21/18 @ 13:07 by Khushbu Palomares) Father Heart disease Grandmother Hypertension Grandfather Heart disease Myocardial infarction Family History: Reports: Unknown Review of Systems General: Reports: Malaise. Denies: Chills, Fever, Sweats Eyes: Denies: Visual changes - bilaterally, Diplopia ENT: Denies: Rhinorrhea, Sore throat Cardiovascular: Reports: Chest pain. Denies: Palpitations, Heart racing Respiratory: Reports: Dyspnea, Dyspnea on exertion. Denies: Cough Gastrointestinal: Reports: Constipation - chronic. Denies: Abdominal pain, Nausea, Vomiting, Diarrhea, Melena, Hematochezia Genitourinary: Denies: Dysuria, Hematuria, Frequency Musculoskeletal: Reports: Swelling - LLE, Extremity Pain - RLE. Denies: Back pain Skin: Denies: Rash, Wounds Neurological: Denies: Headache, Weakness, Numbness Physical Exam Vital Signs/Narrative: Vital Signs 02/24/18 23:20 86 16 179/102 H 94 02/24/18 23:11 97.4 F L 87 18 163/89 H 94 Inital Vital Signs reviewed: Yes General: Well nourished, Well developed, - - NAD, but appears uncomfortable Head: Normocephalic, Atraumatic Eyes: Perrl, EOMI ENT: Moist mucous membranes, No rhinorrhea Neck: Supple, Nontender Cardiovascular: Regular rate, Regular rhythm, No murmurs Respiratory: No distress, CTA bilaterally, Chest nontender Abdomen: Soft, Nontender, Nondistended, Normal bowel sounds Back: Nontender, Normal Inspection Extremities: Nontender, Edema - LLE 1+ Skin: Normal color, No rash Neurological: Alert, Oriented x3, Cranial nerves II-XII grossly intact, Normal Strength, Normal Sensation Psychological: Normal affect Diagnostic/Tx/Re-eval Impressions Chest X-Ray 02/24/18 23:34 IMPRESSION: Borderline cardiomegaly and mild pulmonary congestion. Electronically Signed: Kalli Miller MD at 0:22 EST , Service support , 02/24/18 23:34 Chest 1 View (Portable) [RAD] Stat Laboratory Results - Rhythm Strip Rhythm Strip: Sinus Rhythm Rate: 80 Ectopy: None - EKG Initial EKG Interpretation: Sinus Rhythm, No Acute Injury Pattern, - - nml axis. normal EKG. Prior: Unchanged - Medical Decision Making Labs show renal insufficiency and a troponin that is well within normal limits at 0.02. His EKG is normal. However, his symptoms are concerning, and completely resolved with a set of 3 nitroglycerin sublingual's. Paste is placed on his chest. His chest x-ray is unremarkable with narrow mediastinum. I discussed with cardiology Dr. Coker, who agrees with admission and evaluation tomorrow. Discussed with hospitalist. Patient is stable, will admit to PCU. ED Disposition - Plan for ED Patient: Disposition: Acute Care [facility] Chief Complaint: Chest Pain Diagnosis: Chest pain, unspecified, Renal insufficiency Referrals: Mian Wilburn III, MD [Primary Care Provider] - What to do if you have Problems For any increased pain, shortness of breath, bleeding, nausea or vomiting, chest pain, or any unexpected problems, contact your Primary Care Provider. Call [facility] ([phone]) or report to the closest Emergency Room. Call 911 if necessary. 02/25/18 0138 <Electronically signed by Navjot Tejeda MD> Date Navjot Tejeda MD Cosigner Signature (If Indicated): Date CC: Mian Wilburn III, MD PROTHROMBIN TIME W/INR Collected: 02/24/2018 Status: F Source: [facility] 11:50 PM [facility] REPOSITORY TYPE CODE TESTS RESULT OUT OF RANGE REFERENCE UNITS LAB L300.4150 11.7-14.9 SECONDS High PROTIME 24.0 LAB L300.4200 Normal INR 2.1 Performed By: #### L300.3900 #### [facility] [address] [place], [address] BASIC METABOLIC Collected: 02/24/2018 Status: F Source: [facility] PROFILE (BMP) 11:50 PM [facility] REPOSITORY TYPE CODE TESTS RESULT OUT OF RANGE REFERENCE UNITS LAB L501.0100 74-106 mg/dL High GLU 300 Result Comment: Glucose result greater than or equal to 200 mg/dL suggests DIABETES MELLITUS per A.D.A. criteria. Please note revised GLUCOSE reference range effective 2017. LAB L501.1000 7-18 mg/dL High BUN 21 LAB L501.1100 0.70-1.30 mg/dL High CREAT,SERUM 1.90 Result Comment: The validity of the calculated GFR AND GFRAA in patients over 70 years has not been determined. Clinical correlation is essential. LAB L501.1110 >60 mL/min Low EST GFR 38 Result Comment: Non- GFR Calc LAB L501.1115 >60 mL/min Low EST GFR - AA 46 Result Comment: GFR Calc LAB L501.1255 ml/min Normal Estimated CRCL 38.50 LAB L501.1300 10-20 RATIO Normal BUN/CRE 11.1 LAB L501.2200 8.5-10 mg/dL Normal .1 CA 8.6 LAB L501.5300 136-14 mmol/L Normal 5 NA 139 LAB L501.5600 3.5-5. mmol/L Normal 1 K 4.1 LAB L501.5900 98-107 mmol/L Normal CL 104 LAB L501.6100 21.0-3 mmol/L Normal 2.0 CO2 28.0 LAB L501.6200 5-15 Normal GAP 7 Performed By: #### L500.2500, L501.4010 #### [facility] [address] [facility] [place], [place], [address] TROPONIN-I Collected: 02/24/2018 Status: F Source: [facility] 11:50 PM [facility] REPOSITORY TYPE CODE TESTS RESULT OUT OF RANGE REFERENCE UNITS LAB L501.4010 <0.045 ng/mL Normal 0.020 TROPONIN-I Result Comment: TROPONIN-I EXPECTED VALUES <0.045 Negative 0.045 - 0.590 Consistent with Cardiac Damage > OR = 0.600 Critical Value Not every elevated troponin is indicative of LA. These values should be used with clinical judgement in examining the patient's clinical picture for diagnosis. To establish a diagnosis of LA versus myocardial injury, there must be a demonstrated rise and/or fall in the troponin values, in addition to ischemic symptoms, EKG changes, new regional wall motion abnormality, and/or angiographical evidence. PLEASE NOTE: REFERENCE RANGES EDITED 17 Performed By: #### L500.2500, L501.4010 #### [facility] [address] [place], [address] CBC W/DIFF, AUTOMATED Collected: 02/24/2018 Status: F Source: [facility] 11:50 PM [facility] REPOSITORY TYPE CODE TESTS RESULT OUT OF RANGE REFERENCE UNITS LAB L100.1000 4.4-11.0 K/mm3 Normal WBC 8.1 LAB L100.1200 4.6-6.2 M/mm3 Normal RBC 4.75 LAB L100.1300 13.0-16.5 g/dl Normal HGB 14.0 LAB L100.1400 40-54 % Normal HCT 42.1 LAB L100.1500 80-94 fL Normal MCV 88.6 LAB L100.1600 27.0-32.0 pg Normal MCH 29.5 LAB L100.1700 32-36 g/gl Normal MCHC 33.3 LAB L100.1810 11.6-14.6 % High RDW CV 15.3 LAB L100.1820 35.1-43.9 fl High RDW SD 50.0 LAB L100.1900 150-450 K/mm3 Normal PLT 180 LAB L100.2000 6.2-12.0 fl Normal MPV 9.9 LAB L100.2100 47-70 % Normal NEUT% 68.3 LAB L100.2200 19-41 % Normal LY% 22.5 LAB L100.2300 0-10 % Normal MONO% 6.1 LAB L100.2400 0-5 % Normal EO% 2.5 LAB L100.2500 0-1 % Normal BASO% 0.1 LAB L100.2550 0.0-0.9 % Normal IM GRAN % 0.500 Result Comment: IG% - Immature Granulocytes (promyelocytes, myelocytes and metamyelocytes) > 1% indicates that a LEFT SHIFT is Present. LAB L100.2620 2.0-7.7 X10 3/uL Normal Absolute Neut 5.5 LAB L100.2720 0.83-4.51 X10 3/ul Normal Absolute Lymph 1.81 Performed By: #### L100.0100 #### [facility] [address] [place], [address] CHEST 1 VIEW Observed: 02/24/2018 Status: F Source: [facility] (PORTABLE) 11:36 PM [facility] REPOSITORY [facility] Imaging Services [address] [place] [address] Chest 1 View (Portable) MR#: [id number] Acct: [id number] Name: NOMAN STONE Rep #: [id number] : 1955 62 From: Kalli Miller MD PCP: Mian Wilburn III, MD Status: REG ER Study: Chest 1 View (Portable) Date of Exam: 02/24/18 Exam# [id number] Ordering Dr: Navjot Tejeda MD STUDY: X-RAY CHEST REASON FOR EXAM: Male, 62 years old. Chest pain. TECHNIQUE: Single AP portable view of the chest. COMPARISON: September 09, 2017. FINDINGS: The lungs are expanded. There is interstitial thickening present in both lungs. There is no demonstrated pleural abnormality. There is borderline cardiomegaly. Normal mediastinum and stefanie. There is prominence of the pulmonary hilar arteries with peripheral pulmonary vascular congestion. There is atherosclerotic calcification of the aortic arch with tortuosity. Normal visualized thoracic spine. Normal visualized ribs, clavicles, and shoulders. There is no demonstrated abnormality of the visualized soft tissue structures of the upper abdomen. RAD/Chest 1 View (Portable) IMPRESSION: Borderline cardiomegaly and mild pulmonary congestion. Electronically Signed: Kalli Miller MD at 0:22 EST , Service support , CC: NAVJOT TEJEDA MD; Mian Wilburn III, MD 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: Signed PULMONARY VISIT REPORT Observed: 02/21/2018 Status: F Source: [facility] 2:31 PM [facility] REPOSITORY [facility] [address] [place] [address] OFFICE VISIT Date of Service: 02/21/18 MR#: [id number] Acct: [id number] Name: NOAMN STONE Rep #: [id number] : 1955 Provider: Emory Disla D.O. Age/Sex: 62/M Location[place] [facility] [place] Status: Signed Assessment AND Plan 1. ARNOLDO (obstructive sleep apnea) G47.33 Plan The patient has known ARNOLDO with his last polysomnogram having occurred 5 years ago. Despite being on nocturnal Pap therapy, the patient remains manic with nonrestorative sleep and frequent daytime napping. I have recommended that the patient undergo a re-titration polysomnogram on BiPAP, as he has failed CPAP previously. The patient will qualify for new equipment following the completion of his re-titration polysomnogram. Orders Orders: 2. Obesity E66.9 Plan Weight loss through dietary modification and a graded exercise regimen is strongly encouraged. 3. Heart failure with preserved ejection fraction I50.30 Plan The patient has underlying coronary artery disease for which he recently underwent a multivessel CABG. Continue current medical management and follow-up with cardiology as scheduled. Plan Detail Follow Up 6 Weeks (CSM) HPI HPI Comments Details: The patient is a 62-year-old male who presents to the clinic today as a transfer of care from Dr. Arriaga due to underlying obstructive sleep apnea. The patient's last titration polysomnogram occurred in 2012, at which time, it was recommended that the patient be placed on bilevel support with a pressure setting of 12/6 centimeters of water. Pulmonary function testing was completed in December 2014 revealed evidence of a severe restrictive ventilatory defect. Surface echocardiogram from August 2017 revealed evidence of grade 1 diastolic dysfunction with preserved ejection fraction. Right ventricular systolic function was noted to be low normal. The patient currently follows with Dr. Coker due to a history of coronary artery disease for which he is status post CABG. He also has documented paroxysmal atrial fibrillation. The patient does report relative compliance with the use of his nocturnal BiPAP therapy. He does report that he did attempt CPAP previously but failed its use as he was unable to tolerate the continuous airway pressures. His current machine is greater than 5 years old. Despite use of nocturnal Pap therapy, the patient does continue to report the presence of nonrestorative sleep and frequent daytime napping. 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 He reports no significant shortness of breath, chest tightness or wheezing. Intake Vital Signs02/21/18 Height 5 ft 8 in 02/21/18 Weight: 226 lb Intake Visit Reasons: ARNOLDO Soundscriber Mechanic Required: No Accompanied by: Is patient in pain?: Yes Allergies adhesive Allergy (Verified 02/01/18 15:05) Unknown lisinopril Allergy (Verified 02/01/18 15:05) Unknown Penicillins Allergy (Verified 02/01/18 15:05) Unknown Medications Clopidogrel Bisulfate [Plavix] 75 mg PO DAILY 02/07/13 [History Confirmed 02/21/18] Nitroglycerin [Nitrostat] 0.4 mg SUBLINGUAL Q5M PRN 02/07/13 [History Confirmed 02/21/18] Cholecalciferol (Vitamin D3) [Vitamin D] 5,000 unit PO DAILY 01/16/14 [History Confirmed 02/21/18] Atorvastatin Calcium [Lipitor] 80 mg PO QHS 07/05/15 [History Confirmed 02/21/18] Dulaglutide [Trulicity] 1.5 mg SQ QWEEK 09/09/17 [History Confirmed 02/21/18] Magnesium Oxide 500 mg PO DAILY 09/09/17 [History Confirmed 02/21/18] Insulin Glargine,Hum.rec.anlog [Lantus] 30 unit SQ QHS 09/30/17 [History Confirmed 02/21/18] Warfarin [Coumadin (PBKC)] 2.5 mg PO DAILY 09/30/17 [History Confirmed 02/21/18] hydrocodone 5 mg-acetaminophen 325 mg tablet 1 tab PO Q12H PRN tab 10/31/17 [History Confirmed 02/21/18] lorazepam 0.5 mg tablet 0.5 mg PO BID PRN tab 10/31/17 [History Confirmed 02/21/18] carvedilol 25 mg tablet 12.5 mg PO BID tab 02/01/18 [History Confirmed 02/21/18] gemfibrozil 600 mg tablet 300 mg PO BID tab 02/01/18 [History Confirmed 02/21/18] [facility] Medical History Atherosclerotic heart disease of [place] coronary artery without angina pectoris (Chronic) Paroxysmal atrial fibrillation (Acute) Bradycardia (Acute) Type 2 diabetes mellitus (Chronic) Hypertension (Chronic) PAD (peripheral artery disease) (Chronic) HLD (hyperlipidemia) (Chronic) Acute renal failure (Acute) GERD (gastroesophageal reflux disease) (Chronic) Raynauds disease (Chronic) Surgical History Presence of stent in coronary artery (Chronic) H/O coronary artery bypass surgery (Chronic 09/21/17) History of angioplasty of peripheral vessel (Chronic) Postsurgical percutaneous transluminal coronary angioplasty (PTCA) status (Chronic) History of inguinal hernia repair (Resolved) Family History Father Heart disease Grandmother Hypertension Grandfather Heart disease Myocardial infarction Social History Smoking Status: Never smoker alcohol intake: current Review of Systems Const CONSTITUTIONAL: Negative anorexia, body ache, chills, daytime sleepiness, fever(s), night sweats, oral thrush, stops breathing during sleep, weight loss, sleeping in chair, fatigue, weight loss, weight gain, frequent colds, seasonal allergies, other, headache(s) or orthopnea EETM Ear Nose Throat Mouth: Positive hearing normal; negative hard of hearing, hoarseness, dry mouth in morning, change in vision, itchy eyes, eye pain, swallowing Difficulty, ear pain, nose bleed, headache(s), mouth pain, nasal congestion, nasal discharge, post nasal drip, sinus pain, sinus pressure, sore throat or other Cardio Cardiovascular: Positive edema Location: lower extremity; negative chest pain, chest pain at rest, chest pain with activity, irregular heart rhythm, shortness of breath when lying down, palpitations, murmur or other Resp Respiratory: Positive as per HPI and chest tightness; negative shortness of breath, pain with cough, wheezing, chest congestion, cough, pain on inspiration, inhalers, increase use of rescue inhalers, snoring, apnea or other Gastro Gastrointestional: Negative bloody stools, change in appetite, difficulty swallowing, reflux, hematemesis, melena stool, loose stool, constipation or other Genitourinary: Negative blood in urine, nocturia, pain with urination or other Musc Musculoskeletal: Negative body pain, back pain, neck pain or other Skin/Breast Skin/Breast: Negative dry skin, itching, rash, unusual bruising, breast lump or other Neuro Neurological: Negative restless legs, confusion, weakness or other Psych Psychocological: Positive abnormal sleep pattern; negative anxiety, thoughts of hurting self/others, hopelessness or other Lymph Lymphatic: Negative easy bleeding, easy bruising, swollen lymph nodes or other Exam Const Constitutional: Positive conversant, cooperative, in no acute respiratory distress, well developed, well nourished, good hygiene and obese Head Head: Positive normocephalic and atraumatic; negative cyanosis of lips/distal nose Eyes Eye: Positive clear conjunctiva; negative nystagmus or scleral abnormality Ears Ear: Positive hearing normal and external ears normal; negative hard of hearing Nose Nose: Positive external nose normal; negative epistaxis Mouth Mouth: Positive oral mucosae normal and posterior oropharynx is adequate; negative no lesions or post nasal drip Mallampati Score: III: Mallampati Score Neck Neck: Positive normal visual inspection, trachea midline and thick neck; negative lymphadenopathy Chest Wall Chest: Positive symmetric chest movement Normal AP diameter. Resp lung sounds: Positive clear to auscultation and good air exchange; negative wheezes, rhonchi or rales Cardio Cardiac: Positive regular rate, regular rhythm, S1 normal and S2 normal; negative rub, gallop or murmur GI GI: Positive normal bowel sounds and obese Soft without distention Genitourinary: Positive deferred Musc Musculoskeletal: Positive steady gait Skin Pulmonary Skin Exam: Positive intact; negative lesion, ulcers, dermal atrophy or rash Pulses Pulse: Yes Pedal pulses present: Extremities Extremities: No clubbing, No cyanosis, No edema Neuro Neurologic: Yes conversant, Yes no focal neuro deficits, Yes cooperative Lymph Lymphatic: No lymphadenopathy Psych Appearance: Positive grossly normal Mental Status: Positive mental status grossly normal Mood: Positive congruent mood Affect: Positive normal affect Coding Level of Care Code Off vis,new,level 4 Diagnoses ARNOLDO (obstructive sleep apnea) G47.33 Obesity E66.9 Heart failure with preserved ejection fraction I50.30 02/21/18 1431 <Electronically signed by Emory Disla DO> Date Emory Disla DO Cosigner Signature: Date (if applicable) CC: Mian Wilburn III, MD PROGRESS Observed: 02/19/2018 Status: COMPLETED Source: [facility] 6:39 PM [facility] REPOSITORY HNO ID: [id number] Author: Trinity Lucio Service: (none) Author Type: (none) Type: Progress Notes Filed: 02/19/2018 6:39 PM Note Text: This note was created using [email or web address]. Subjective Noman Stone is a 62 year old male. Review of Systems Objective There were no vitals taken for this visit. Physical Exam Assessment and Plan No change was needed per Dr. Wilburn. Trinity Lucio PROGRESS Observed: 02/19/2018 Status: COMPLETED Source: [place] 12:02 PM [facility] REPOSITORY HNO ID: [id number] Author: Sana Sky RN Service: (none) Author Type: (none) Type: Progress Notes Filed: 02/19/2018 12:03 PM Note Text: patient had inr completed at [facility] patients inr is 2.7 (patients inr range is 2.0-3.0) patient is currently taking 5mg Sun and 2.5mg all other days patients last dose change was on 12/25/17 due to a low level of 1.8 (dose at that time was 2.5mg daily) patient has had no changes in medication and no missed doses and no change in diet Advised patient to continue on the same dose(s) and that they would only be contacted regarding dosage and follow up instructions after review with provider, if a change is needed. Written instructions given and patient verbalized understanding. Presently scheduled in 4 weeks (pt will call to schedule) for follow up INR. CARDIOLOGY VISIT Observed: 02/01/2018 Status: F Source: [facility] REPORT 4:35 PM [facility] REPOSITORY [facility] [address] [place] [address] OFFICE VISIT Date of Service: 02/01/18 MR#: [id number] Acct: [id number] Name: NOMAN STONE Rep #: [id number] : 1955 Provider: Tex Coker MD Age/Sex: 62/M Location: [facility] [place] Status: Signed HPI HPI Details: NOMAN STONE, is a 62 M who presents to the office today for for outpatient cardiovascular follow-up. Overall he states, since his last visit in early October of this year, he is doing well in cardiac rehabilitation. He is also recently returned to work. He has had no new acute symptoms with respect to chest discomfort or difficulty breathing. There has been no evidence of orthopnea or PND. There has been no near syncope or syncope. He states he has had intermittent lower extremity edema more so on the left than the right. He has used his 's furosemide therapy at times and felt he had more improvement. He states he will be changing him from HCTZ to furosemide therapy. Intake Vital Signs02/01/18 Height 5 ft 8 in 02/01/18 Weight: 225 lb 02/01/18 Body Mass Index (BMI) 34.2 02/01/18 Blood Pressure 90/60 Intake Visit Reasons: 3 M FU Allergies adhesive Allergy (Verified 02/01/18 15:05) Unknown lisinopril Allergy (Verified 02/01/18 15:05) Unknown Penicillins Allergy (Verified 02/01/18 15:05) Unknown Medications Clopidogrel Bisulfate [Plavix] 75 mg PO DAILY 02/07/13 [History Confirmed 02/01/18] Nitroglycerin [Nitrostat] 0.4 mg SUBLINGUAL Q5M PRN 02/07/13 [History Confirmed 02/01/18] Cholecalciferol (Vitamin D3) [Vitamin D] 5,000 unit PO DAILY 01/16/14 [History Confirmed 02/01/18] Atorvastatin Calcium [Lipitor] 80 mg PO QHS 07/05/15 [History Confirmed 02/01/18] Dulaglutide [Trulicity] 1.5 mg SQ QWEEK 09/09/17 [History Confirmed 02/01/18] Hydrochlorothiazide 12.5 mg PO DAILY 09/09/17 [History Confirmed 02/01/18] Magnesium Oxide 500 mg PO DAILY 09/09/17 [History Confirmed 02/01/18] Insulin Glargine,Hum.rec.anlog [Lantus] 30 unit SQ QHS 09/30/17 [History Confirmed 02/01/18] Warfarin [Coumadin (PBKC)] 2.5 mg PO DAILY 09/30/17 [History Confirmed 02/01/18] hydrocodone 5 mg-acetaminophen 325 mg tablet 1 tab PO Q12H PRN tab 10/31/17 [History Confirmed 02/01/18] lorazepam 0.5 mg tablet 0.5 mg PO BID PRN tab 10/31/17 [History Confirmed 02/01/18] carvedilol 25 mg tablet 12.5 mg PO BID tab 02/01/18 [History Confirmed 02/01/18] gemfibrozil 600 mg tablet 300 mg PO BID tab 02/01/18 [History Confirmed 02/01/18] [facility] Medical History Atherosclerotic heart disease of [place] coronary artery without angina pectoris (Chronic) Paroxysmal atrial fibrillation (Acute) Bradycardia (Acute) Type 2 diabetes mellitus (Chronic) Hypertension (Chronic) PAD (peripheral artery disease) (Chronic) HLD (hyperlipidemia) (Chronic) Acute renal failure (Acute) GERD (gastroesophageal reflux disease) (Chronic) Raynauds disease (Chronic) Surgical History Presence of stent in coronary artery (Chronic) H/O coronary artery bypass surgery (Chronic 09/21/17) History of angioplasty of peripheral vessel (Chronic) Postsurgical percutaneous transluminal coronary angioplasty (PTCA) status (Chronic) History of inguinal hernia repair (Resolved) Family History Father Heart disease Grandmother Hypertension Grandfather Heart disease Myocardial infarction Social History Smoking Status: Never smoker alcohol intake: current ROS Const Const: Negative for fatigue, weakness, weight gain, weight loss, frequent falls or excessive sweating Eyes Eyes: Negative for change in vision, blurry vision or transient loss of vision ENT ENT: Negative for dizziness or balance problems Cardio Chest Pain: No Palpitations: No Edema: None Muscle aches with walking: None Additional Details: Patient reports that he feels he has been having water weight gain fluctuating 2-4lbs every couple days. P Resp Respiratory: Negative for SOB with activity or SOB at rest GI GI: Negative vomiting or vomiting blood/hematemesis : Negative for hematuria Musc Musc: Positive for muscle aches/ myalgia (Lt LE numbness, myalgias from statin); negative for balance problems, muscle weakness or joint pain Skin Skin: Negative non-healing lesions or rash Neuro Neuro: Negative for weakness, blurry vision, dizziness, lightheadedness, frequent falls or orthostatic symptoms Harris Hematologic/Lymphatic: Negative for easy bleeding Endo Endo: Negative for fatigue or excessive sweating Psych Psych: Negative for anxiety or depression Allergy Allergy/Immunology: Negative for hives, Negative for rash Cardiology Exam Const Appearance: cooperative, healthy appearing, comfortable, no acute distress, well developed and well groomed Nutritional Appearance: overweight Orientation: alert, awake and oriented x3 Head Head: normal to inspection, normocephalic and atraumatic Ears: hearing grossly normal bilaterally Nose: external nose normal Face and Sinus: face symmetric Mouth: oral mucosae normal Teeth and gingiva: fair dentition Eyes Eyelids: eyelids normal Conjunctivae: conjunctivae normal Pupils: PERRL EOM: EOM intact bilaterally Neck Neck: normal visual inspection and full ROM Carotids: normal carotid upstroke Chest Chest inspection: normal inspection of the chest, symmetric chest movement and midline sternotomy incision Auscultation: Bilateral: Clear to Auscultation Cardio Palpation: normal PMI Rhythm: regular rhythm Heart sounds: S1 normal, S2 normal and positive S4 GI GI: normal to inspection, soft, no hepatosplenomegaly and bowel sounds present Neuro General: alert, awake and oriented x3 Skin surgical incisions healing well Extremities Pulses: Normal: Right Radial Pulse, Left Radial Pulse Lower Extremity Edema: None: Bilateral Musculoskel Musculoskeletal: joint tenderness Psych Psychological: normal affect Supplemental Info Echocardiogram: 09/10/2017: Interpretation Summary Normal LV size. Left ventricular systolic function is normal. The estimated ejection fraction is 60 %. No evidence for diastolic dysfunction. Pharmacologic stress nuclear imaging study: 09/10/2017 Pharmacologic myocardial perfusion stress test. 61-year-old man with a history of atrial fibrillation and coronary artery disease. Stress protocol: Resting EKG demonstrates normal sinus rhythm with a rate of 66 bpm normal intervals are noted. 0.4 mg regadenoson was infused per usual protocol followed by rapid intravenous saline flush injection continuous EKG monitoring was performed. The patient maintained sinus rhythm throughout the recording. The maximum heart rate attained was 88 bpm which was 55% of maximum predicted heart rate the maximum workload was 1 metabolic equivalent. At rest there were no ST or T-wave changes noted suggest abnormal flow reserve at peak infusion no ST or T-wave changes were noted suggest abnormal flow reserve. The resting blood pressure was 162/92 with a final blood pressure 140/82. Myocardial perfusion protocol. 14.3 mCi of technetium 99m sestamibi was injected at rest. 0.4 mg regadenoson was infused per usual protocol peak infusion 44.6 mCi of technetium 99m sestamibi was injected stress images were obtained stress and rest images were reconstructed and compared in the short axis vertical long horizontal long axis. Gated images were also obtained Perfusion SPECT analysis. Review of the stress images demonstrate normal perfusion noted in the septum anterior wall and inferior wall. A portion of the inferolateral wall of the medium size has a defect present on the stress images with moderate improvement on the resting images suggesting a moderate amount of inferolateral ischemia. Gated SPECT analysis: The gated ejection fraction is noted to be 59%. Conclusion: Abnormal pharmacologic myocardial perfusion stress test with evidence of inferolateral ischemia and a moderate zone. Preserved ejection fraction. A cardiac catheterization procedure was performed on 09/10/2017, CORONARY ANGIOGRAPHY DOMINANCE: Right Dominant LEFT HEART ASSESSMENT Left Ventricular Ejection Fraction: by LV Gram 55 % Normal LV wall motion Elevated Left Ventricular End Diastolic Pressure LVEDP: 25 mmHg LEFT MAIN: Mild calcification, Mild luminal irregularities LEFT ANTERIOR DECENDING ARTERY: PROX LAD: Mild calcification, 50 % Stenosis MID LAD: 85 % Stenosis DIAGONAL 1: Proximal - Mild luminal irregularities CIRCUMFLEX ARTERY: PROX CIRC: Mild calcification MID CIRC: Mild luminal irregularities OM 1: Proximal - small caliber vessel: subtotally occluded OM 2: Proximal - 85 % Stenosis RIGHT CORONARY ARTERY: PROX RCA: Previously placed stent has an instent minimal luminal irregularities MID RCA: Previously placed stent has an instent minimal luminal irregularities DISTAL RCA: Previously placed stent has an instent minimal luminal irregularities RT PDA: Mid - Serial: Eccentric: 85 % Stenosis RIGHT AV SEGMENT: Ostial: subtotal occlusion COLLATERAL FLOW: Collateral flow from Left to Right VALVE FINDINGS: Normal Aortic Valve function Normal Mitral Valve function AORTIC ROOT: Angiographically normal Open heart surgery: [facility]: 09/21/2017: MANCERA to the LAD; SVG to the OM; SVG to the ramus; SVG to the PDA/PL; left atrial appendage excision Assessment AND Plan 1. Atherosclerosis of [place] coronary artery of [place] heart without angina pectoris I25.10 PCI/stent to prox/distal RCA 2008; PCI/Stent to mid RCA and PCi of the PDA 04/20/15; CABG x5- MANCERA to LAD, SVG to Ramus, SVG to PDA, SVG to PLV, SVG to OM, PV isolation, left atrial appendage excision 09/21/17 Plan At the present time he appears to be doing reasonably well. He will continue medical management. He will continue risk factor evaluation and care. It was not felt he required additional cardiac diagnostic studies or therapeutic intervention at this time. He will continue with cardiac rehabilitation. He will continue with outpatient follow-up. 2. History of coronary artery bypass graft Z95.1 CABG x5- MANCERA to LAD, SVG to Ramus, SVG to PDA, SVG to PLV, SVG to OM, PV isolation, left atrial appendage excision 09/21/17 Plan He does have a history of CABG as noted above. Again he will continue his current evaluation and care. 3. Presence of stent in coronary artery Z95.5 PCI/stent to prox/distal RCA 2008; PCI/Stent to mid RCA and PCi of the PDA 04/20/15 Plan He has a history of previous PCI. He is now status post CABG. He will continue evaluation and care. 4. Paroxysmal atrial fibrillation I48.0 Plan He has history of PAF. He will continue rate control therapy and anticoagulant therapy. 5. Hyperlipidemia, unspecified hyperlipidemia type E78.5 Plan He will need continued risk factor evaluation and care. He states this is being performed by his primary care physician. 6. Essential hypertension I10 Plan His blood pressure appears well-controlled. He notes intermittently it is lower. However he appears to be without obvious symptoms. He will continue to monitor his blood pressure. Depending upon the findings he may or may not need additional adjustment of his medication. 7. Type 2 diabetes mellitus with complication, unspecified whether detention insulin use E11.8 Plan He will continue under the care of his primary care physician. Plan Detail Additional Comments At the present time he will continue with an outpatient follow- up visit approximately 6 months unless needed sooner. In the meantime he will continue his cardiac rehabilitation. He will also be following with his primary care physician. He did ask if he was allowed to use a jackhammer in his basement to create a new area for a sump pump. He was advised not to do so at this time as he continues to heal from his recent open heart surgery and median sternotomy incision. Thank you for allowing me to participate in the care of your patient. Please don't hesitate to call if any issues arise. This note was generated using a voice recognition system and there may be incorrect words, spelling or punctuation that were not noted when reviewing the office note prior to saving. Follow Up 6 Months (PFM) Coding Level of Care Code Off vis,est,level 3 Diagnoses Atherosclerosis of [place] coronary artery of [place] heart without angina pectoris I25.10 [place] vs. transplanted heart: [place] heart History of coronary artery bypass graft Z95.1 Presence of stent in coronary artery Z95.5 Paroxysmal atrial fibrillation I48.0 Hyperlipidemia, unspecified hyperlipidemia type E78.5 Hyperlipidemia type: unspecified Essential hypertension I10 Hypertension type: essential hypertension Type 2 diabetes mellitus with complication, unspecified whether intermediate manager insulin use E11.8 Diabetes mellitus detention insulin use: unspecified intermediate manager insulin use status Diabetes mellitus complication status: with unspecified complications Coding Level of Care Code Off vis,est,level 3 Diagnoses Atherosclerosis of [place] coronary artery of [place] heart without angina pectoris I25.10 [place] vs. transplanted heart: [place] heart History of coronary artery bypass graft Z95.1 Presence of stent in coronary artery Z95.5 Paroxysmal atrial fibrillation I48.0 Hyperlipidemia, unspecified hyperlipidemia type E78.5 Hyperlipidemia type: unspecified Essential hypertension I10 Hypertension type: essential hypertension Type 2 diabetes mellitus with complication, unspecified whether detention insulin use E11.8 Diabetes mellitus intermediate manager insulin use: unspecified intermediate manager insulin use status Diabetes mellitus complication status: with unspecified complications 02/01/18 1635 <Electronically signed by Tex Coker MD> Date Tex Coker MD Cosigner Signature: Date (if applicable) CC: Mian Wilburn III, MD PROGRESS Observed: 01/22/2018 Status: COMPLETED Source: [place] 6:01 PM [facility] [place] REPOSITORY HNO ID: [id number] Author: Juliette Arriaza MA Service: (none) Author Type: Manager Quality Systems Type: Progress Notes Filed: 01/22/2018 6:01 PM Note Text: Per PCP written response: PCP in agreement with instructions below. Juliette Arriaza CMA PROGRESS Observed: 01/22/2018 Status: COMPLETED Source: [place] 12:02 PM [facility] [place] REPOSITORY HNO ID: [id number] Author: Sana Sky RN Service: (none) Author Type: (none) Type: Progress Notes Filed: 01/22/2018 12:03 PM Note Text: patient had inr completed at [facility] patients inr is 2.0 (patients inr range is 2.0-3.0) patient is currently taking 5mg Sun and 2.5mg all other days patients last dose change was on 12/25/17 due to a low level of 1.8 (dose at that time was 2.5mg daily) patient has had no changes in medication and no missed doses and no change in diet Advised patient to continue on the same dose(s) and that they would only be contacted regarding dosage and follow up instructions after review with provider, if a change is needed. Written instructions given and patient verbalized understanding. Presently scheduled in 4 weeks (02/19/18) for follow up INR. PROGRESS Observed: 01/08/2018 Status: COMPLETED Source: [place] 4:23 PM [facility] REPOSITORY HNO ID: [id number] Author: Sana Sky RN Service: (none) Author Type: (none) Type: Progress Notes Filed: 01/08/2018 4:23 PM Note Text: per written order by dr wilburn he agrees with information below PROGRESS Observed: 01/08/2018 Status: COMPLETED Source: [place] 12:29 PM [facility] REPOSITORY HNO ID: [id number] Author: Sana Sky RN Service: (none) Author Type: (none) Type: Progress Notes Filed: 01/08/2018 12:30 PM Note Text: patient had inr completed at [facility] patients inr is 2.1 (patients inr range is 2.0-3.0) patient is currently taking 5mg Sun and 2.5mg all other days patients last dose change was on 12/25/17 due to a low level of 1.8 (dose at that time was 2.5mg daily) patient has had no changes in medication except for coumadin and no missed doses and no change in diet Advised patient to continue on the same dose(s) and that they would only be contacted regarding dosage and follow up instructions after review with provider, if a change is needed. Written instructions given and patient verbalized understanding. Presently scheduled in 2 weeks (01/22/18) for follow up INR since this is the first normal reading since dose change PROGRESS Observed: 12/25/2017 Status: COMPLETED Source: [place] 5:58 PM [facility] REPOSITORY HNO ID: [id number] Author: Fe Alvarado LPN Service: (none) Author Type: (none) Type: Progress Notes Filed: 12/25/2017 5:59 PM Note Text: Per Dr Wilburn's written orders, patient to take coumadin 5mg 12/25 AND 12/26 then start 5mg every Sunday and 2.5mg every other days and repeat INR on 01/08/18. Pt's aware. Fe Alvarado LPN PROGRESS Observed: 12/25/2017 Status: COMPLETED Source: [place] 1:38 PM [facility] REPOSITORY HNO ID: [id number] Author: Sana Sky RN Service: (none) Author Type: (none) Type: Progress Notes Filed: 12/25/2017 1:39 PM Note Text: patient had inr completed at [facility] patients inr is 1.8 (patients inr range is 2.0-3.0) patient is currently taking 2.5mg daily patients last dose change unknown as patient just started with the CC in September and has been on the 2.5mg daily since starting patient has had no changes in medication and no missed doses and no change in diet Advised patient that they would be contacted regarding medication dose and when to follow up after information is reviewed by provider. After provider review please contact the patient with information and schedule follow up appointment with coumadin clinic. FYI - patient has been scheduled for a 2 week follow up inr on 01/08/18 PT D/C SUMMARY (1) Observed: 12/24/2017 Status: F Source: [place] 6:55 AM [facility] REPOSIT[facility] [address] [place] [address] Fax REHABILITATION SERVICES DISCHARGE SUMMARY MR#: [id number] Acct: [id number] Name: NOMAN STONE Rep #: [id number] : 1955 62 From: Waqas Mayfield DPT, OCS, CSCS Referring Dr.: Fermín MARIE Status: REG RCR Insurance: [facility] SELF PAY INSURANCE HP - PT D/C Summary It has been my pleasure to treat NOMAN STONE under orders from CYNTHIA Pryor, for the diagnosis of R hip pain. for a total of 14 visit(s). Discharge Date: 12/21/17 Please see the following information for a summary of their discharge status. - Subjective Subjective: Doing a lot better. Walking and standing longer. No pain turning in bed anymore. Lifting R leg when walk can still be a challenge, has to think about it getting into car. Doing cardiac rehab and doing stretching at home with the band. No f/u scheduled with WO. Hip only hurts if doesn't lift it high enough to get in car. - Pain R groin Pain Intensity (Out of 10): 1 - Overall Improvement % Improvement: 90 - Objective Objective/Function: HS still tight R > L at -20 90/90. Gait is normal. Steps are normal with one rail descending. DOINE EXCELLENT OVERALL. MUCH BETTER. - Goals Goal 1:: Pain R groin 2/10 at worst and 80% better. Goal Progress: Goal Met Goal 2:: patient ambulate and transition consistenty with out hip pain or antalgia. Goal Progress: Goal Met Goal 3:: I approp HEp to minimize future problems. Goal Progress: Goal Met - Plan Plan: D/C - D/C Information Discharge Comments: PT DOING WELL WITH HIP PAIN AND WILL CONTINUE HEP INCLUDING IN GYM. WILL CONTACT DOCTOR IF WORSENS AGAIN. If there are questions or concerns regarding this patient's physical therapy, please feel free to call me at [phone]. Thank you for the referral of this patient. Sincerely, Waqas Mayfield, DPT, OC <Electronically signed by Waqas Mayfield DPT, OCS, CSCS> 12/24/17 0655 CC: Mian Wilburn III, MD; Fermín MARIE EBG Signed PROGRESS Observed: 12/05/2017 Status: COMPLETED Source: [place] 6:22 PM [facility] REPOSITORY HNO ID: [id number] Author: Mian Wilburn III Service: (none) Author Type: Physician Type: Progress Notes Filed: 12/05/2017 6:22 PM Note Text: Noted all Mian Wilburn III, MD, FAAFP PROGRESS Observed: 12/05/2017 Status: COMPLETED Source: [place] 4:13 PM [facility] REPOSITORY HNO ID: [id number] Author: Tremaine Sepulveda (Rn) Service: (none) Author Type: Registered Nurse Type: Progress Notes Filed: 12/05/2017 6:22 PM Note Text: 1PRIMARY CARE COORDINATION FOLLOW-UP NOTE Provider Action/FYI 1. Spk with spouse Ni, noting Pt denies CP, Sob, edema, dizziness, or irregular heart beats, denies Syncope, or falls or unusual symptoms. 2. 10/31/[address] Coker, f/u to be scheduled 3. Pt started Cardiac 11/28/17 Rehab 3x week and therapy for right hip pain, it was felt to be a possible ligament strain, possible RTW in January Prn at [facility] ct technologist 4. Pt will have flu vaccination at [facility] 5. Testing BS 1x daily, Fbs 110-140, Denies Hypoglycemia 6. Denies needs or concerns Patient identified by name and date of . YES Spoke to spouse Thank You, Signature Coco Penaloza RN December 05, 2017 CNPTOUTREACH Observed: 12/05/2017 Status: COMPLETED Source: [place] 12:00 AM [facility] REPOSITORY Patient Outreach (FAMPWS) NOMAN STONE ([id number]) 1955 M Date Time Provider Department 12/05/17 [facility] visit today, we recorded the following information about you: Coco Penaloza RN 12/05/2017 6:22 PM Signed 1PRIMARY CARE COORDINATION FOLLOW-UP NOTE Provider Action/FYI 1. Spk with spouse Ni, noting Pt denies CP, Sob, edema, dizziness, or irregular heart beats, denies Syncope, or falls or unusual symptoms. 2. 10/31/[address] Coker, f/u to be scheduled 3. Pt started Cardiac 11/28/17 Rehab 3x week and therapy for right hip pain, it was felt to be a possible ligament strain, possible RTW in January Prn at [facility] ct technologist 4. Pt will have flu vaccination at [facility] 5. Testing BS 1x daily, Fbs 110-140, Denies Hypoglycemia 6. Denies needs or concerns Patient identified by name and date of . 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] Cmt: Update/ No Needs Reason For Visit History Recorded Prescriptions as of 12/05/2017 Sig: HYDROCODONE 5 MG-ACETAMINOPHE* Take 1 tablet by mouth twice * CLOPIDOGREL 75 MG TABLET Take 1 tablet by mouth once d* HYDROCHLOROTHIAZIDE 12.5 MG C* Take one capsule by mouth onc* SENNOSIDES 8.6 MG-DOCUSATE SO* Take 1 tablet by mouth twice * CLINDAMYCIN HCL 300 MG CAPSULE Take 1 capsule by mouth every* INSULIN LISPRO (U-100) 100 UN* If blood glucose is 151- 200 =* INSULIN SYRINGE-NEEDLE U-100 * for insulin injection three t* CARVEDILOL 25 MG TABLET Take 0.5 tablets by mouth twi* ACETAMINOPHEN 325 MG TABLET Take 2 tablets by mouth every* WARFARIN 2.5 MG TABLET Take 1 tablet by mouth daily * TRULICITY 1.5 MG/0.5 ML SUBCU* INJECT 1.5MG SUBCUTANEOUSLY O* INSULIN GLARGINE (U-100) 100 * Inject 30 Units subcutaneousl* ATORVASTATIN 80 MG TABLET Take 1 tablet by mouth once d* GEMFIBROZIL 600 MG TABLET Take 0.5 tablets by mouth twi* MAGNESIUM OXIDE 500 MG CAPSULE Take 500 mg by mouth once malgorzata* INSULIN SYRINGE-NEEDLE U-100 * 10 Units once daily. Patient taking differently: Inject 30 Units subcutaneousl* NITROGLYCERIN 0.4 MG SUBLINGU* Dissolve 1 tablet under the t* BLOOD SUGAR DIAGNOSTIC STRIPS TEST BLOOD SUGAR ONCE DAILY. * Patient taking differently: three times daily. CHOLECALCIFEROL (VITAMIN D3) * Take 1 capsule by mouth once * Problem List As Of Date 12/05/2017 Noted Resolved Raynaud's syndrome [I73.00] Primary hypertension [I10] Priority: C More... Hyperlipidemia [E78.5] Priority: C More... Chronic low back pain [M54.5, G89.29] INVALID FOR* Priority: C More... Anxiety state [F41.1] INVALID FOR* Skin lesion [L98.9] INVALID FOR* Peripheral arterial disease [I73.9] INVALID FOR* Priority: C More... Parotid discomfort [K11.9] INVALID FOR* Diabetes mellitus (HCC) [E11.9] INVALID FOR*08/28/2013 Anxiety [F41.9] INVALID FOR* GERD (gastroesophageal reflux disease) [K21.9] INVALID FOR* Low testosterone [E34.9] INVALID FOR* Diabetes mellitus type 2 with peripheral artery*INVALID FOR* Priority: C More... SUMMARY INVALID FOR*02/14/2015 Priority: Mild More... 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] INVALID FOR*09/27/2017 Priority: B More... CAD (coronary artery disease) [I25.10] INVALID FOR* Priority: A More... Unstable angina (HCC) [I20.0] INVALID FOR*09/27/2017 Priority: C More... 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 Stage 3 chronic kidney disease (HCC) [N18.3] INVALID FOR* Priority: C More... More... Leukocytosis [D72.829] INVALID FOR*09/27/2017 Priority: I More... Discharge planning issues [Z02.9] INVALID FOR* Priority: M More... On mechanically assisted ventilation ([facility]) [Z99*INVALID FOR*09/22/2017 Priority: B More... Pain, postoperative, acute [G89.18] INVALID FOR*10/08/2017 Priority: C More... A-fib ([facility]) [I48.91] INVALID FOR* Priority: A More... Atelectasis [J98.11] INVALID FOR* Priority: B More... Summary [Z91.89] INVALID FOR* Priority: Very Severe More... Anticoagulation management encounter [Z51.81, Z*INVALID FOR* Priority: C More... Current use of detention anticoagulation [Z79.0*INVALID FOR* Acute renal failure (HCC) [N17.9] INVALID FOR* Bradycardia [R00.1] INVALID FOR* Occlusion and stenosis of bilateral carotid art*INVALID FOR* Status post percutaneous transluminal coronary *INVALID FOR* Encounter Status:Closed by MIAN WILBURN III, MD on 12/05/17 PROGRESS Observed: 11/27/2017 Status: COMPLETED Source: [place] 4:21 PM [facility] REPOSITORY HNO ID: [id number] Author: Sana Sky RN Service: (none) Author Type: (none) Type: Progress Notes Filed: 11/27/2017 4:21 PM Note Text: per written order by dr wilburn he agrees with information below PROGRESS Observed: 11/27/2017 Status: COMPLETED Source: [place] 12:02 PM [facility] REPOSITORY HNO ID: [id number] Author: Sana Sky RN Service: (none) Author Type: (none) Type: Progress Notes Filed: 11/27/2017 12:03 PM Note Text: patient had inr completed at [facility] patients inr is 2.0 (patients inr range is 2.0-3.0) patient is currently taking 2.5mg daily patients last dose change was on unknown as patient just started with the CC in September and has been on the 2.5mg daily since starting patient has had no changes in medication and no missed doses and no change in diet patient has had no changes in medication and no missed doses and no change in diet Advised patient to continue on the same dose(s) and that they would only be contacted regarding dosage and follow up instructions after review with provider, if a change is needed. Written instructions given and patient verbalized understanding. Presently scheduled in 4 weeks (12/25/17) for follow up INR. 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 TEX COKER Primary Diagnosis: CABG @ [facility] - History of Present Cardiac Event Onset Date: Enter Onset Date of cardiac illnesses in Comment field below Current stable Angina Pectoris:: No Acute Myocardial Infarction within 12 months:: No Coronary Artery Bypass Graft:: Yes - 09/21/2017 Heart valve replacement or repair:: No PTCA or coronary stenting:: Yes - 2008 X 3; 1 STENT IN 2014 Heart or Heart-Lung Transplant:: No Heart Failure EF <35%:: No Were there any complications?: LEG SWELLING REDNESS GROIN PAIN - Medications Home Medications: Ambulatory Orders Medication Instructions Recorded - Allergies Allergies/Adverse Reactions: Allergies adhesive Allergy (Verified 09/30/17 21:13) Unknown lisinopril Allergy (Verified 09/30/17 21:13) Unknown Penicillins Allergy (Verified 09/30/17 21:13) Unknown - Sleep Disorder Evaluation Hx of Sleep Apnea: Yes Do you snore loudly (louder than talking or can be heard through closed doors)?: Yes - BiPAP at hs. Do you often feel tired/ fatigued/ sleepy during daytime?: No Has anyone observed you stop breathing during sleep?: No History of Hypertension (for STOP score): Yes STOP Results: Positive Advanced Directives - Advanced Directives Power of Obstetrics Gynecology Physician: No Living Will: No Advance Directives Information Provided: No Advance Directives on File: No DNR Order?:: No - MOLST See MOLST form: No Past Medical History - Past Medical Illness Medical History: Past Medical History (Last Reviewed 10/31/17 @ 11:36 by Sana Owusu) Presence of stent in coronary artery (Chronic) Z95.5 PCI/stent to prox/distal RCA 2008; PCI/Stent to mid RCA and PCi of the PDA 04/20/15 Atherosclerotic heart disease of [place] coronary artery without angina pectoris (Chronic) I25.10 PCI/stent to prox/distal RCA 2008; PCI/Stent to mid RCA and PCi of the PDA 04/20/15; CABG x5- MANCERA to LAD, SVG to Ramus, SVG to PDA, SVG to PLV, SVG to OM, PV isolation, left atrial appendage excision 09/21/17 Paroxysmal atrial fibrillation (Acute) I48.0 Bradycardia (Acute) R00.1 Type 2 diabetes mellitus (Chronic) E11.9 Hypertension (Chronic) I10 PAD (peripheral artery disease) (Chronic) I73.9 PCI/Stent L fem artery 11/26/07; PCI Rt fem 02/17/08; PCI Left pop and sup femoral artery 03/09/10; PCI Rt pop and Rt SFA 05/11/10; PCI bilat LE arteriogram w/angioplasty 10/03/10; PCI/LLE 07/17/11 HLD (hyperlipidemia) (Chronic) E78.5 Acute renal failure (Acute) GERD (gastroesophageal reflux disease) K21.9 Raynauds disease I73.00 - Past Surgical History Surgical History: Past Surgical History (Last Reviewed 10/31/17 @ 11:36 by Sana Owusu) H/O coronary artery bypass surgery (Chronic) Onset Date: 09/21/17 Z95.1 CABG x5- MANCERA to LAD, SVG to Ramus, SVG to PDA, SVG to PLV, SVG to OM, PV isolation, left atrial appendage excision 09/21/17 History of angioplasty of peripheral vessel Z98.62 PCI/Stent L fem artery 11/26/07; PCI Rt fem 02/17/08; PCI Left pop and sup femoral artery 03/09/10; PCI Rt pop and Rt SFA 05/11/10; PCI bilat LE arteriogram w/angioplasty 10/03/10; PCI/LLE 07/17/11 Postsurgical percutaneous transluminal coronary angioplasty (PTCA) status Z98.61 PCI/stent to prox/distal RCA 2008; PCI/Stent to mid RCA and PCi of the PDA 04/20/15 History of inguinal hernia repair Z98.890, Z87.19 Surgical History: angioplasty, - - right inguinal hernia, s/p stenst - Family History Summary Family History: Family History (Last Reviewed 10/31/17 @ 11:36 by Sana Owusu) Father Heart disease Grandmother Hypertension Grandfather Heart disease Myocardial infarction Social History - Smoking History Smoking Status: Never smoker Hx Tobacco Use: No Hx Smoking Exposure: No - Alcohol Use Alcohol Usage: Yes - occasional - Substance Abuse Hx Substance Use: No - Occupation Occupation (List type of work in comments):: Employed - 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 Recreational Activities: I am able to engage in all my recreational activities Social Environment - Status Marital Status: - Current Living Arrangements Living Environment:: Spouse - Children How many children do you have?: 2 - 1@ home still Do any of your children live nearby?: Yes - Safety Do you feel safe in your surroundings?: Yes - Assistance Do you need any assistance at home?: none Review of Systems - Review of Systems Hints: Right click = Denies (Slash). Left click = Reports ([place]) Review of Present Symptoms: Reports: Operative Discomfort - very little, weight limit 20#, still having some hip lower leg pain from positioning during surgery., Wound Healing, Heart Arrhythmia/Irregularities - h/o of paroxysmal atrial fibrillationa nd bradycardia, did a ablation procedure during bypass surgery haven't had issues since., Appetite - Normal. Denies: Shortness of Breath at Rest, Shortness of Breath with Exertion, Angina, Dizziness/Lightheadedness, Fatigue, Appetite - Special Diet, Sleep - Normal - minimum slepp little as four hours a night. Used to work nights so it has been regular pattern to not sleep regularly., Sexual Changes - Pain Is Patient Pain Free?: No Pain Location: pelvis - walk to long, standing to long and peripheral lower extremity stents., lower extremity Pain Level: 0/10 Risk Factor Assessment - Chief Complaint Chief Complaint: Patient is a 62 year old male patient of Dr. Tex Coker who presents to cardiac rehab today following recent CABG on 09/21/2017 at the [facility]. The patient has a previous CAD history with previous coronary stents in adn lower extremity stents for PAD. - Vital Signs Temperature: 98.7 F Respiratory Rate: 16 Pulse Ox: 97 Nailbeds:: pink - Pulse Pulse Rate: 95 Pulse Rhythm: Regular - Hypertension How long have you been treated?: 20 On medication(s)?: yes Blood Pressure Sitting - Right Arm: 118/68 - Obesity Height: 5 ft 8 in Weight:: 217 lb Weight in Pounds: 217.0 lbs Weight Source: Standing Scale Body Mass Index (BMI): 33.0 Desired Body Weight: 171 Nutritional Referral for Obesity: Yes - Patient could benefit from structured weight program. - Physical Inactivity Physical Inactivity: Reg Exercise 30 min/day - PT therapy for hip - Risk Stratification Risk Guidelines: Lowest Risk: Risk Factor for Smoking, Risk Factor for Dyslipidemia, Risk Factor for Diabetes - non-insulin dependent DM, Risk Factor for Hypertension, Risk Factor for Sedentary Lifestyle, Risk Factor for Depression, Highest Risk: Risk Factor for Obesity - For Smoking Smoking Risk Guidelines: Smoking Low Risk: None or quit greater than 6 months ago. Smoking Moderate Risk: Smoker or quit 6 months or less ago. Smoking High Risk: Smoker - For Dyslipidemia Dyslipidemia Risk Guidelines: Low Risk: Moderate Risk: High Risk: 15-25% fat 25.1-29% fat >/= 30% fat. <7% sat fat 7-9% sat fat >9% sat fat. <150 mg chol 150-299 mg chol >/= 300 mg chol. LDL <100 LDL 100-129 LDL >/= 130. Chol/HDL ratio <5.0 Chol/HDL ratio 5.0-6.0 Chol/HDL ratio >6.0. Triglycerides <100 Triglycerides 100-149 Triglycerides >/= 150 - For Diabetes Mellitus Diabetes Risk Guidelines: Diabetes Low Risk: HgA1c <6.5% and/or FBG <120. Diabetes Moderate Risk: HgA1c 6.6-7.9% and/or FBG 120- 180. Diabetes High Risk: HgA1c >/= 8% and/or FBG >180 - For Obesity/Overweight Obesity/Overweight Risk Guidelines: Obesity Low Risk: BMI <25.0. Obesity Moderate Risk: BMI 25-29.9. Obesity High Risk: BMI >/= 30.0 - For Hypertension Hypertension Risk Guidelines: Hypertension Low Risk: Systolic <120 and Diastolic <80. Hypertension Moderate Risk: Systolic 120-139 and Diastolic 80-89. Hypertension High Risk: Systolic >/= 140 and Diastolic >/= 90 - For Sedentary Lifestyle Sedentary Lifestyle Risk Guidelines: Sedentary Lifestyle Low Risk: >/= 1,500 kcal/week. Sedentary Lifestyle Moderate Risk: 700-1,499 kcal/week. Sedentary Lifestyle High Risk: < 700 kcal/week - For Depression Depression Risk Guidelines: Depression Low Risk: Not clinically depressed. Depression Moderate Risk: Mildly depressed. Depression High Risk: Clinically depressed - Family History Family History: Family History (Last Reviewed 10/31/17 @ 11:36 by Sana Owusu) Father Heart disease Grandmother Hypertension Grandfather Heart disease Myocardial infarction Motivation - Motivation to Participate On a scale of 1 to 10, how prepared are you to commit to attending program?: 10 What do you see as barriers to successfully being able to complete the program?: right hip pain discomfort seeing PT for it presently. What do you see as the benefits of succesfully completing the program? In other words, what do you hope to get out of participating in the program?: benefit is returning to exercise and loss of weight. Are there issues you are dealing with that will interfere with completing the program?: right shoulder maybe Do you have a spouse or signficant other, family or friends who will help support you to complete the program?: yes 11/22/17 1109 <Electronically signed by Sid Owens CRT, RCP, BS> Date Sid Owens CRT, RCP, BS Outcome assessment reviewed. Exercise plan approved as documented. Treatment plan and goals support patient needs/abilities. Continue with current plan. I certify the patient demonstrates improvement and remains willing and capable of participation. the patient continues to benefit from cardiac rehab services/training. The patient may continue at current intensity, endurance and modality and progress per protocol. 11/22/17 4337 <Electronically signed by Tex Coker MD> Cosigner Signature: Date Tex Coker MD CC: Signed PROGRESS Observed: 11/14/2017 Status: COMPLETED Source: [place] 8:23 AM [facility] REPOSITORY HNO ID: [id number] Author: Haily Flores Ma Service: (none) Author Type: (none) Type: Progress Notes Filed: 11/14/2017 8:23 AM Note Text: According to PCP note, PCP agrees. Tracker previously updated and patient previously scheduled. PROGRESS Observed: 11/13/2017 Status: COMPLETED Source: [place] 11:57 AM [facility] REPOSITORY O ID: [id number] Author: Sana Sky RN Service: (none) Author Type: (none) Type: Progress Notes Filed: 11/13/2017 11:59 AM Note Text: patient had inr completed at [facility] patients inr is 2.3 (patients inr range is 2.0-3.0) patient is currently taking 2.5mg daily patients last dose change was unknown as patient just started with the CC in September and has been on the 2.5mg daily since starting patient has had no changes in medication and no missed doses and no change in diet Advised patient to continue on the same dose(s) and that they would only be contacted regarding dosage and follow up instructions after review with provider, if a change is needed. Written instructions given and patient verbalized understanding. Presently scheduled in 2 weeks (11/27/17) for follow up INR. INITAL EVALUATION (1) Observed: 11/07/2017 Status: F Source: [facility] - PT 7:19 AM [facility] REPOSIT[facility] Physical Therapy [facility] [address] [place] [address]. [address] [place] [address] Fax REHABILITATION SERVICES INITIAL EVALUATION MR#: [id number] Acct: [id number] Name: NOMAN STONE Rep #: [id number] : 1955 62 From: Waqas Mayfield DPT, OCS, CSCS Referring Dr.: Fermín MARIE Status: REG RCR Insurance: [facility] SELF PAY INSURANCE Patient's Visit Information NOMAN STONE is a 62 year old M referred to Physical Therapy by CYNTHIA Pryor with a diagnosis of R hip pain.. Date of Evaluation: 11/06/17 Physical Therapist: Waqas Mayfield DPT, OC - Visit Plan Frequency: 2-3x /Week Duration: 4-6 Weeks Plan: pt has recent CABGx5 and has precautions with UE usage. 2-3x/week x 4-6 as needed for. 1. US R psoas nonthermal and STM cross friction to same. 2. stretch R psoas and quad, rollout quad. 3. eccentric R hip flexion strength and R hip strength as tolerated and progress stretch and strength to HEP - Subjective Subjective: Had cardiac surgery 09/21 CABGx5. Two weeks after that rolled in bed and felt pop in R groin. and it hurt. Now standing ore than 10 minutes hurts. Walking is OK but standing around is worse. Also feels it in bed rolling R to L. Fees like ice pick in R groin. This pain is new. Hard to controlled sit into chair due to pain. No numbness or tingling. Xrays showed normal hip and no OA. Had a veinous doppler and it was clear. sleeping is only interrupted if he moves wrong. Hurts to lift R leg with walking sometimes. Doctor thinks possible tear of labrum. No MRI yet. Has claudication in legs and takes norco and up two due to recent chest surgery. Not in cardiac rehab yet. Had prestress test adn passed. No precautions from moodispaw except avoid chest muscle activity. 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 [employer] on feet most of day. Basic ADLs are OK adn I. 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 Standing too long can limit building computers. - Pain R groin Pain Intensity (Out of 10): 0 Pain Intensity Range: 0, 10 - Objective Walks with mild R antalgia I, transitions to and fro sit I, to supine I, needs assist up from supine due to chest. Steps are reciprocal with slight R pain when lifting R leg today. Palpation shows tenderness in R psoas area. + R YUDY and FADDIR. - Scour. ROM is very painful at 110 degrees flexion passively, Otherwise WFL, painful with IR and ext rotation. AROM hurts to flex R hip worse SLR. extension is to 0 degrees and very tight in R quad and hip flexor. R hip flexor strength is 3/5, abd and add 4+, ext 4- and rotations are 4-, only flexion is painful, slight discomfort abd. reflexes 1/3 in patella and achilles. Sensation WNL to gross light touch in LE. - Goals Goal 1:: Pain R groin 2/10 at worst and 80% better. Goal Time Frame: 4-6 Weeks Goal 2:: patient ambulate and transition consistenty with out hip pain or antalgia. Goal Time Frame: 4-6 Weeks Goal 3:: I approp HEp to minimize future problems. Goal Time Frame: 4-6 Weeks - Rehabilitation Potential Physical Therapy Diagnosis: R hip pain , psoas tendonitis vs labral pathology. Rehabilitation Potential: Fair - Anticipated Interventions Patient/Client Instruction: Educate patient on: Condition, Plan of Care For the Purpose of:: To decrease pain, To decrease swelling/inflammation Therapeutic Exercise to Include: Strength training, Flexibilty training, Passive ROM, Active ROM For the Purpose of:: To decrease pain, To increase ROM, To improve nutrient delivery to tissue, To improve ability of physical actions for home/community/work/leisure Manual Therapy Techniques to Include: Soft tissue mobilization Comment: CFM R psoas For the Purpose of:: To decrease swelling/inflammation Ultrasound (thermal/non thermal): Yes - nonthermal For the Purpose of:: To decrease pain, To decrease swelling/inflammation Thank you for the opportunity to evaluate your patient. For Medicare and Medicare HMO plans, please review the plan of care and approve it. It will need to be FAXED BACK to us at [phone] for Medicare purposes. Please let me know if there are questions or concerns regarding this plan of care. Physician Signature: Date: <Electronically signed by Waqas CERNAT, OCS, CSCS> 11/07/17 0719 CC: Mian Wilburn III, MD; Fermín MARIE EBG Signed For Medicare only, by signing this I certify the plan of care. Physicians Signature Date STRESS REPORT Observed: 11/01/2017 Status: F Source: [facility] 1:09 PM [facility] REPOSIT[facility] Cardiovascular Services [facility] [place] [address] MR#: [id number] Acct: [id number] Name: NOMNA STONE Rep #: [id number] : 1955 62 From: Tex Coker MD Primary Care: Mian Wilburn III, MD Status: REG CLI Ordering Dr: Sex: Carrie Yang Stress Test Report Date: 12/13/2017 Procedure: Exercise tolerance test Indications: CAD; status post PCI; status post CABG; PAF; precardiac rehabilitation evaluation Consent: Per the patient Procedure: The patient exercised on a Byron protocol for 5 minutes completing Stage I and 2 minutes of Stage II achieving a peak heart rate of 120 bpm (76 % predicted maximal heart rate) with a peak blood pressure 144/80 mmHg and a peak MET capacity of approximately 7 MET's. The baseline ECG demonstrated normal sinus rhythm. The peak exercise ECG demonstrated no obvious ECG changes. There was an isolated PVC during exercise. The functional capacity was considered average. The patient had no complaint of chest discomfort during exercise or recovery. The examination was discontinued secondary to discomfort. Impression: 1. Technically inadequate (percent predicted maximal heart rate < than 85%) exercise tolerance test 2. Peak exercise ECG with ECG changes of the heart rate achieved 3. Was an isolated PVC during exercise This note was generated with [employer] software. It may contain incorrect words, spelling, and punctuation that were not noted in checking the note before signing. 11/01/17 1309 <Electronically signed by Tex Coker MD> Date Tex Coker MD CC: Mian Wilburn III, MD; Tex Coker MD Date Dictated: 11/01/17 1305 Date Transcribed: 11/01/17 1305 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: PM Signed CARDIOLOGY VISIT Observed: 10/31/2017 Status: F Source: [facility] REPORT 1:15 PM [facility] RE[facility] [address] [place] [address] OFFICE VISIT Date of Service: 10/31/17 MR#: [id number] Acct: [id number] Name: NOMAN STONE Rep #: [id number] : 1955 Provider: Tex Coker MD Age/Sex: 62/M Location: [facility] [place] Status: Signed HPI HPI Details: NOMAN STONE, is a 62 M who presents to the office today for for outpatient cardiovascular follow-up. As you know he is undergone evaluation care at [facility] and subsequently [facility] which led to a diagnosis of paroxysmal atrial fibrillation, CAD, and the subsequent need for open heart surgery which occurred at the [facility] on 09/21/2017 with a MANCERA to the LAD, and SVG to the intermediate ramus, and SVG sequential graft to the PDA and posterior lateral ventricular branch, and SVG to the OM, a pulmonary vein isolation procedure, and a left atrial appendage excision procedure. At the present time he states he is recuperating from surgery and doing well. He is not complaining of any ongoing symptoms of classic angina pectoris. There has been no evidence of volume overload with CHF or pulmonary edema. There has been no near syncope or syncope. There is been no obvious recurrence of atrial dysrhythmias. He did have an ECG in the office today. He remains in sinus rhythm with an occasional PVC with a nonspecific T-wave abnormality. Intake Vital Signs10/31/17 Height 5 ft 8 in 10/31/17 Weight: 217 lb 10/31/17 Body Mass Index (BMI) 33.0 10/31/17 Blood Pressure 114/64 10/31/17 Blood Pressure Location Lt brachial 10/31/17 Blood Pressure Position Sitting Intake Visit Reasons: S/P CABG at [facility] Allergies adhesive Allergy (Verified 09/30/17 21:13) Unknown lisinopril Allergy (Verified 09/30/17 21:13) Unknown Penicillins Allergy (Verified 09/30/17 21:13) Unknown Medications Clopidogrel Bisulfate [Plavix] 75 mg PO DAILY 02/07/13 [History Confirmed 10/31/17] Nitroglycerin [Nitrostat] 0.4 mg SUBLINGUAL Q5M PRN 02/07/13 [History Confirmed 10/31/17] Cholecalciferol (Vitamin D3) [Vitamin D] 5,000 unit PO DAILY 01/16/14 [History Confirmed 10/31/17] Atorvastatin Calcium [Lipitor] 80 mg PO QHS 07/05/15 [History Confirmed 10/31/17] Carvedilol [Coreg (Beta Nico)] 25 mg PO BID 07/05/15 [History Confirmed 10/31/17] Dulaglutide [Trulicity] 1.5 mg SQ QWEEK 09/09/17 [History Confirmed 10/31/17] Hydrochlorothiazide 12.5 mg PO DAILY 09/09/17 [History Confirmed 10/31/17] Magnesium Oxide 500 mg PO DAILY 09/09/17 [History Confirmed 10/31/17] Insulin Glargine,Hum.rec.anlog [Lantus] 30 unit SQ QHS 09/30/17 [History Confirmed 10/31/17] Warfarin [Coumadin (PBKC)] 2.5 mg PO DAILY 09/30/17 [History Confirmed 10/31/17] gemfibrozil 600 mg tablet 600 mg PO BID tab 10/31/17 [History Confirmed 10/31/17] hydrocodone 5 mg-acetaminophen 325 mg tablet 1 tab PO Q12H PRN tab 10/31/17 [History Confirmed 10/31/17] lorazepam 0.5 mg tablet 0.5 mg PO BID PRN tab 10/31/17 [History Confirmed 10/31/17] PFSH Medical History Presence of stent in coronary artery (Chronic) Atherosclerotic heart disease of [place] coronary artery without angina pectoris (Chronic) Paroxysmal atrial fibrillation (Acute) Bradycardia (Acute) Type 2 diabetes mellitus (Chronic) Hypertension (Chronic) PAD (peripheral artery disease) (Chronic) HLD (hyperlipidemia) (Chronic) Acute renal failure (Acute) GERD (gastroesophageal reflux disease) (Chronic) Raynauds disease (Chronic) Surgical History H/O coronary artery bypass surgery (Chronic 09/21/17) History of angioplasty of peripheral vessel (Chronic) Postsurgical percutaneous transluminal coronary angioplasty (PTCA) status (Chronic) History of inguinal hernia repair (Resolved) Family History Father Heart disease Grandmother Hypertension Grandfather Heart disease Myocardial infarction Social History Smoking Status: Never smoker alcohol intake: current ROS Const Const: Negative for fatigue, weakness, weight gain, weight loss, frequent falls or excessive sweating Eyes Eyes: Negative for change in vision, blurry vision or transient loss of vision ENT ENT: Negative for dizziness or balance problems Cardio Chest Pain: No Character: tightness Onset: exercise Location: right chest Palpitations: No Edema: None, Left (slight LE) Muscle aches with walking: None Additional Details: Patient S/P CABG 08/2017. Patient reports x1 day post surgery chest tightness with activity. Patient denies any other episodes of chest tightness. Resp Respiratory: Negative for SOB with activity or SOB at rest GI GI: Negative vomiting or vomiting blood/hematemesis : Negative for hematuria Musc Musc: Positive for muscle aches/ myalgia (Rt hip pain); negative for balance problems, muscle weakness or joint pain Skin Skin: Negative non-healing lesions or rash Neuro Neuro: Negative for weakness, blurry vision, dizziness, lightheadedness, frequent falls or orthostatic symptoms Harris Hematologic/Lymphatic: Negative for easy bleeding Endo Endo: Negative for fatigue or excessive sweating Psych Psych: Negative for anxiety or depression Allergy Allergy/Immunology: Negative for hives, Negative for rash Cardiology Exam Const Appearance: cooperative, healthy appearing, comfortable, no acute distress, well developed and well groomed Nutritional Appearance: overweight Orientation: alert, awake and oriented x3 Head Head: normal to inspection, normocephalic and atraumatic Ears: hearing grossly normal bilaterally Nose: external nose normal Face and Sinus: face symmetric Mouth: oral mucosae normal Teeth and gingiva: fair dentition Eyes Eyelids: eyelids normal Conjunctivae: conjunctivae normal Pupils: PERRL EOM: EOM intact bilaterally Neck Neck: normal visual inspection and full ROM Carotids: normal carotid upstroke Chest Chest inspection: normal inspection of the chest, symmetric chest movement and midline sternotomy incision Auscultation: Bilateral: Clear to Auscultation Cardio Palpation: normal PMI Rhythm: regular rhythm Heart sounds: S1 normal, S2 normal and positive S4 GI GI: normal to inspection, soft, no hepatosplenomegaly and bowel sounds present Neuro General: alert, awake and oriented x3 Skin surgical incisions healing well Extremities Pulses: Normal: Right Radial Pulse, Left Radial Pulse Lower Extremity Edema: None: Bilateral Musculoskel Musculoskeletal: joint tenderness Psych Psychological: normal affect Supplemental Info Echocardiogram: 09/10/2017: Interpretation Summary Normal LV size. Left ventricular systolic function is normal. The estimated ejection fraction is 60 %. No evidence for diastolic dysfunction. Pharmacologic stress nuclear imaging study: 09/10/2017 Pharmacologic myocardial perfusion stress test. 61-year-old man with a history of atrial fibrillation and coronary artery disease. Stress protocol: Resting EKG demonstrates normal sinus rhythm with a rate of 66 bpm normal intervals are noted. 0.4 mg regadenoson was infused per usual protocol followed by rapid intravenous saline flush injection continuous EKG monitoring was performed. The patient maintained sinus rhythm throughout the recording. The maximum heart rate attained was 88 bpm which was 55% of maximum predicted heart rate the maximum workload was 1 metabolic equivalent. At rest there were no ST or T-wave changes noted suggest abnormal flow reserve at peak infusion no ST or T-wave changes were noted suggest abnormal flow reserve. The resting blood pressure was 162/92 with a final blood pressure 140/82. Myocardial perfusion protocol. 14.3 mCi of technetium 99m sestamibi was injected at rest. 0.4 mg regadenoson was infused per usual protocol peak infusion 44.6 mCi of technetium 99m sestamibi was injected stress images were obtained stress and rest images were reconstructed and compared in the short axis vertical long horizontal long axis. Gated images were also obtained Perfusion SPECT analysis. Review of the stress images demonstrate normal perfusion noted in the septum anterior wall and inferior wall. A portion of the inferolateral wall of the medium size has a defect present on the stress images with moderate improvement on the resting images suggesting a moderate amount of inferolateral ischemia. Gated SPECT analysis: The gated ejection fraction is noted to be 59%. Conclusion: Abnormal pharmacologic myocardial perfusion stress test with evidence of inferolateral ischemia and a moderate zone. Preserved ejection fraction. A cardiac catheterization procedure was performed on 09/10/2017, CORONARY ANGIOGRAPHY DOMINANCE: Right Dominant LEFT HEART ASSESSMENT Left Ventricular Ejection Fraction: by LV Gram 55 % Normal LV wall motion Elevated Left Ventricular End Diastolic Pressure LVEDP: 25 mmHg LEFT MAIN: Mild calcification, Mild luminal irregularities LEFT ANTERIOR DECENDING ARTERY: PROX LAD: Mild calcification, 50 % Stenosis MID LAD: 85 % Stenosis DIAGONAL 1: Proximal - Mild luminal irregularities CIRCUMFLEX ARTERY: PROX CIRC: Mild calcification MID CIRC: Mild luminal irregularities OM 1: Proximal - small caliber vessel: subtotally occluded OM 2: Proximal - 85 % Stenosis RIGHT CORONARY ARTERY: PROX RCA: Previously placed stent has an instent minimal luminal irregularities MID RCA: Previously placed stent has an instent minimal luminal irregularities DISTAL RCA: Previously placed stent has an instent minimal luminal irregularities RT PDA: Mid - Serial: Eccentric: 85 % Stenosis RIGHT AV SEGMENT: Ostial: subtotal occlusion COLLATERAL FLOW: Collateral flow from Left to Right VALVE FINDINGS: Normal Aortic Valve function Normal Mitral Valve function AORTIC ROOT: Angiographically normal Assessment AND Plan 1. Atherosclerosis of [place] coronary artery of [place] heart without angina pectoris I25.10 PCI/stent to prox/distal RCA 2008; PCI/Stent to mid RCA and PCi of the PDA 04/20/15; CABG x5- MANCERA to LAD, SVG to Ramus, SVG to PDA, SVG to PLV, SVG to OM, PV isolation, left atrial appendage excision 09/21/17 Plan At the present time he appears to be doing well from a cardiac standpoint. He is not complaining of any ongoing issues of sick recurrent angina pectoris. He will continue risk factor modification and medical management. He will also be referred for outpatient cardiac rehabilitation therapy. Orders Orders: Referrals: 2. History of coronary artery bypass graft Z95.1 CABG x5- MANCERA to LAD, SVG to Ramus, SVG to PDA, SVG to PLV, SVG to OM, PV isolation, left atrial appendage excision 09/21/17 Plan Again he has recently undergone CABG. He appears to be healing well. He will initiate cardiac rehabilitation therapy. Orders Orders: 3. Presence of stent in coronary artery Z95.5 PCI/stent to prox/distal RCA 2008; PCI/Stent to mid RCA and PCi of the PDA 04/20/15 Plan He does have a history of previous PCI as previously described. He continues medical management. He will proceed with his cardiac rehabilitation. Orders Orders: 4. Paroxysmal atrial fibrillation I48.0 Plan He does have the history of paroxysmal atrial fibrillation. He has undergone a surgical procedure to assist with this. At the present time he will continue rate control therapy and anticoagulant therapy. Over time, if he remains in sinus rhythm, noting his surgical procedure, consideration can be given as to whether or not he will ever be a candidate to be able to discontinue anticoagulant therapy. 5. PAD (peripheral artery disease) I73.9 PCI/Stent L fem artery 11/26/07; PCI Rt fem 02/17/08; PCI Left pop and sup femoral artery 03/09/10; PCI Rt pop and Rt SFA 05/11/10; PCI bilat LE arteriogram w/angioplasty 10/03/10; PCI/LLE 07/17/11 Plan He does have a history of peripheral arterial disease as previously described. He will continue risk factor modification medical therapy is indicated. 6. Hyperlipidemia, unspecified hyperlipidemia type E78.5 Plan He will continue medical management. His lipids will need to be followed over time. 7. Essential hypertension I10 Plan His blood pressure appears to be recently well controlled. He will continue his medical therapy. Orders Orders: 8. Type 2 diabetes mellitus with complication, unspecified whether detention insulin use E11.8 Plan This is under the care of his primary care physician. Plan Detail Other Medications Discontinued: clindamycin HCl Discontinued Reason: Pt 300 mg (2 x 150 mg) PO 4X/DAY Sana Owusu no longer taking Additional Comments He will continue medical management. He will be evaluated for cardiac rehabilitation with a baseline exercise tolerance test. He will proceed with cardiac rehabilitation. He states he is in need of physical therapy for his right lower extremity as well. He will be scheduled for future outpatient follow-up to monitor his course. Thank you for allowing me to participate in the care of your patient. Please don't hesitate to call if any issues arise. This note was generated using a voice recognition system and there may be incorrect words, spelling or punctuation that were not noted when reviewing the office note prior to saving. Follow Up 3 Months (PFM) Coding Level of Care Code Off vis,est,level 4 Diagnoses Atherosclerosis of [place] coronary artery of [place] heart without angina pectoris I25.10 [place] vs. transplanted heart: [place] heart History of coronary artery bypass graft Z95.1 Presence of stent in coronary artery Z95.5 Paroxysmal atrial fibrillation I48.0 PAD (peripheral artery disease) I73.9 Hyperlipidemia, unspecified hyperlipidemia type E78.5 Hyperlipidemia type: unspecified Essential hypertension I10 Hypertension type: essential hypertension Type 2 diabetes mellitus with complication, unspecified whether intermediate manager insulin use E11.8 Diabetes mellitus complication status: with unspecified complications Diabetes mellitus intermediate manager insulin use: unspecified intermediate manager insulin use status Coding Level of Care Code Off vis,est,level 4 Diagnoses Atherosclerosis of [place] coronary artery of [place] heart without angina pectoris I25.10 [place] vs. transplanted heart: [place] heart History of coronary artery bypass graft Z95.1 Presence of stent in coronary artery Z95.5 Paroxysmal atrial fibrillation I48.0 PAD (peripheral artery disease) I73.9 Hyperlipidemia, unspecified hyperlipidemia type E78.5 Hyperlipidemia type: unspecified Essential hypertension I10 Hypertension type: essential hypertension Type 2 diabetes mellitus with complication, unspecified whether intermediate manager insulin use E11.8 Diabetes mellitus complication status: with unspecified complications Diabetes mellitus detention insulin use: unspecified intermediate manager insulin use status 10/31/17 1315 <Electronically signed by Tex Coker MD> Date Tex Coker MD Cosigner Signature: Date (if applicable) CC: Mian Wilburn III, MD 12 LEAD EKG PERFORMED Observed: 10/31/2017 Status: F Source: [facility] 11:26 [facility] REPOSITORY [facility] [address] [place] [address] 12 Lead EKG performed by [facility] 10/31/17 1125 MR#: [id number] Acct: [id number] Name: NOMAN STONE Rep #: [id number] : 1955 62 From: Tex Coker MD Attending Dr: Tex Coker MD Status: DEP AMB Ordering Dr: Tex Coker MD Date: 10/31/17 Location: [facility] Sex: M C Admitted: BMS/12 Lead EKG performed by [facility] ECG Report Interpretation Sinus Rhythm - occasional ectopic ventricular beat Nonspecific T wave abnormalityBORDERLINEElectronically signed on 10/31/2017 at 18:16 by Tex Coker Software Version [id number] 10/31/17 1819 Date Tex Coker MD CC: Mian Wilburn III, MD Date Dictated: 10/31/171124 Date Transcribed: 10/31/171124 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: PM Signed PROGRESS Observed: 10/30/2017 Status: COMPLETED Source: [facility] 6:02 PM [facility] REPOSITORY HNO ID: [id number] Author: Haily Flores Ma Service: (none) Author Type: (none) Type: Progress Notes Filed: 11/01/2017 7:53 AM Note Text: According to PCP note patient is to take 5 mg every TuTh AND 2.5 mg all the other days. To recheck 11/13. Tracker updated and patient previously scheduled. Unable to reach patient. Left VM on patient's VM with instructions and advise to call office back to confirm receipt of message. Haily Flores Ma PROGRESS Observed: 10/30/2017 Status: COMPLETED Source: [place] 12:26 PM [facility] REPOSITORY HNO ID: [id number] Author: Sana Sky RN Service: (none) Author Type: (none) Type: Progress Notes Filed: 10/30/2017 12:29 PM Note Text: patient had inr completed at [facility] CC patients inr is 1.7 (patients inr range is 2.0-3.0) patient is currently taking 2.5mg daily patients last dose change unknown as patient just started with the CC in September and has been on the 2.5mg daily since starting patient has had no changes in medication and no missed doses and no change in diet Advised patient that they would be contacted regarding medication dose and when to follow up after information is reviewed by provider. After provider review please contact the patient with information and schedule follow up appointment with coumadin clinic. FYI - patient has been scheduled for a 2 week follow up inr on 11/13/17 HIP, UNI W/ PELVIS Observed: 10/25/2017 Status: F Source: [place] 2-3 VIEWS 4:02 PM [facility] REPOSITORY [facility] Imaging Services [address] [place] [address] HIP, UNI W/ Pelvis 2-3 Views MR#: [id number] Acct: [id number] Name: NOMAN STONE Rep #: [id number] : 1955 M 62 From: Jay Gutierrez MD PCP: Mian Wilburn III, MD Status: REG CLI Study: HIP, UNI W/ Pelvis 2-3 Views Date of Exam: 10/25/17 Exam# [id number] Ordering Dr: Mian Wilburn III, MD STUDY: X-RAY - PELVIS AND RIGHT HIP REASON FOR EXAM: Male, 62 years old. Hip pain TECHNIQUE: Radiological exam, hip, unilateral, with pelvis when performed; 2 or 3 views. COMPARISON: None. FINDINGS: There is a non-specific bowel gas pattern. Normal visualized soft tissue structures. There are calcified phleboliths in the pelvis. This makes differentiation with distal ureteral stones difficult. Stool throughout the colon. Large amount of stool in the rectal vault can suggest constipation. There are atherosclerotic vascular calcifications. Normal bilateral iliac wings, sacroiliac joints and visualized sacrum. Normal bilateral superior and inferior pubic rami. Normal pubic symphysis. Normal bilateral ischial tuberosities. Normal visualized femoral head. Normal acetabulum. Normal hip joint. RAD/HIP, UNI W/ Pelvis 2-3 Views IMPRESSION: Normal x-ray examination of the pelvis and hip. Constipation Electronically Signed: Jay Gutierrez MD at 20:39 EDT , Service support , CC: Mian Wilburn III, MD 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: Signed ARTERIAL DUPLEX US, Observed: 10/25/2017 Status: F Source: [facility] 3:48 PM [facility] REPOSITORY [facility] Cardiovascular Services [facility] [place] [address] Art Duplex US Unilat Lower Ext 10/25/17 1338 MR#: [id number] Acct: [id number] Name: NOMAN STONE Rep #: [id number] : 1955 62 From: Keagan Moore MD Attending Dr: Tex Coker MD Status: REG CLI Ordering Dr: Tex Coker MD Date: 10/25/17 Location: [facility] Sex: M C Admitted: Cardiovascular Services Abdominal Vascular Ultrasound [address] [place] [address] [place] Ordering Physician: Tex Coker Name: NOMAN STONE JStudy Date: 01:38 PM Patient Location: [facility] : 1955 Gender: Male Age: 62 yrs Ethnicity: C Reason For Study: R/O PSEUDO HEADER_END Right Renal Artery RT DRY HEAT CABINET ATTENDANT- .9 X .9 CM with a velocity of 89.6 cm/s RT CFV demonstrates normal phasic doppler signal. Interpretation Summary The right common femoral artery is patent, demonstrating normal, pulsatile arterial flow. The right common femoral vein is patent, demonstrating normal, phasic venous flow. There is no evidence of pseudoaneurysm or arterio-venous fistula. Ordering Physician: Tex Coker Referring Physician: MIAN WILBURN Performed By: Shruthi Quick, WILIAM, RVT 10/25/17 1547 Date Keagan Moore MD CC: Mian Wilburn III, MD; Tex Coker MD Date Dictated: 10/25/17 1338 Date Transcribed: 10/25/17 5121 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: Signed OFFICE VISIT REPORT Observed: 10/25/2017 Status: F Source: [place] 3:04 PM [facility] [address] [place] [address] OFFICE VISIT Date of Service: 10/25/17 MR#: [id number] Acct: [id number] Patient: NOMAN STONE Rep #: [id number] : 1955 Provider: Tex Coker MD Age/Sex: 62/M Location[place] [facility] Status: Signed Intake Intake Visit Reasons: s/p cabg Chief Complaint: heart skipping Allergies adhesive Allergy (Verified 09/30/17 21:13) Unknown lisinopril Allergy (Verified 09/30/17 21:13) Unknown Penicillins Allergy (Verified 09/30/17 21:13) Unknown Medications Clopidogrel Bisulfate [Plavix] 75 mg PO DAILY 02/07/13 [History Confirmed 09/30/17] Lorazepam [Ativan] 0.5 mg PO BID PRN PRN 02/07/13 [History Confirmed 09/30/17] Nitroglycerin [Nitrostat] 0.4 mg SUBLINGUAL Q5M PRN 02/07/13 [History Confirmed 09/30/17] Cholecalciferol (Vitamin D3) [Vitamin D] 5,000 unit PO DAILY 01/16/14 [History Confirmed 09/30/17] Atorvastatin Calcium [Lipitor] 80 mg PO QHS 07/05/15 [History Confirmed 09/30/17] Carvedilol [Coreg (Beta Nico)] 25 mg PO BID 07/05/15 [History Confirmed 09/30/17] Amlodipine [Norvasc] 10 mg PO DAILY #30 tab 11/26/15 [Rx Confirmed 09/30/17] Dulaglutide [Trulicity] 1.5 mg SQ QWEEK 09/09/17 [History Confirmed 09/30/17] Gemfibrozil [Lopid] 300 mg PO BID 09/09/17 [History Confirmed 09/30/17] Hydrochlorothiazide 12.5 mg PO DAILY 09/09/17 [History Confirmed 09/30/17] Magnesium Oxide 500 mg PO DAILY 09/09/17 [History Confirmed 09/30/17] Colchicine 0.6 mg PO DAILY 09/30/17 [History Confirmed 09/30/17] Insulin Glargine,Hum.rec.anlog [Lantus] 30 unit SQ QHS 09/30/17 [History Confirmed 09/30/17] Insulin Lispro [Humalog] 0 unit SQ ACHS PRN 09/30/17 [History Confirmed 09/30/17] Oxycodone [Oxyir] 5 mg PO Q6H PRN PRN 09/30/17 [History Confirmed 09/30/17] Senna/Docusate Sodium [Senokot-S] 1 tab PO DAILY PRN 09/30/17 [History Confirmed 09/30/17] Warfarin [Coumadin (PBKC)] 2.5 mg PO DAILY 09/30/17 [History Confirmed 09/30/17] Clindamycin [Cleocin] 300 mg PO 4X/DAY #80 cap 10/01/17 [Rx] Assessment AND Plan Orders Orders: Nursing Note Patient called with c/o right groin pain that radiates medial. Pain develops approx 10 minutes after standing and intensifies if he sits. PCP examined patient and thought it could be r/t previous cardiac cath femoral insertion site. He did not note any signs of a hernia. Today right femoral area is w/o ecchymosis, no bruit, fem pulse 2+, unable to palpate peripheral pulse, foot warm and pink. Arterial duplex order and was negative for pseudoaneurysm. Patient notified of results and instructed to f/u with PCP. Has OV with Dr Coker next week. 10/25/17 1504 <Electronically signed by Tex Coker MD> Date Tex Coker MD Cosigner Signature: Date (if applicable) CC: Mian Wilburn III, MD PROGRESS Observed: 10/24/2017 Status: COMPLETED Source: [facility] 5:14 PM [facility] HNO ID: [id number] Author: Mian Wilburn III Service: (none) Author Type: Physician Type: Progress Notes Filed: 10/24/2017 7:22 PM Note Text: SUBJECTIVE: This is a 62 year old male that is here today for sudden onset of severe pain R ant hip starting 2 wks ago when he pivotted to the right. The pain is exacerbated by sitting down after standing. Pain subsides after sitting for awhile or supine for awhile. Able to walk about a block with mild pain, but he does not think he will be able to start cardiac rehab. Of importance to patient had a heart catheterization through the right femoral artery about 6-7 weeks ago. (4 weeks prior to the onset of these symptoms). He does not have any history of ecchymosis or swelling of the thigh after experiencing the intense acute onset of pain in the right anterior hip. Both patient and have had concerns whether there was any injury done to the artery with his pivoting. We discussed that it would be helpful to have an opinion from the equipment manager regarding this. He has a cardiology appointment a week from today, but I encouraged trying to get an earlier appointment. We discussed delaying ordering CT angiogram of the artery unless it is deemed necessary by the equipment manager in order to spare his kidneys yet another exposure to contrast dye. PAST MEDICAL HISTORY Diagnosis Date - Acute renal failure (HCC) - CAD (coronary artery disease) - Diabetes mellitus ([facility]) 11/17/2010 - Essential hypertension, benign - GERD (gastroesophageal reflux disease) 11/17/2010 - H/O percutaneous transluminal coronary angioplasty - Hyperlipidemia - Low testosterone 12/12/2011 - Other and unspecified hyperlipidemia - PAD (peripheral artery disease) ([facility]) - Paroxysmal atrial fibrillation ([facility]) - Raynaud's syndrome - Shift work sleep disorder 05/03/2015 - Type 2 diabetes mellitus with stage 3 chronic kidney disease, with long-term current use of insulin ([facility]) 12/09/2015 - Type II or unspecified type diabetes mellitus with peripheral circulatory disorders, uncontrolled(250.72) 08/28/2013 Current Outpatient Prescriptions on File Prior to Visit: clopidogrel (PLAVIX) 75 mg tablet Take 1 tablet by mouth once daily. Hydrochlorothiazide 12.5 mg capsule Take one capsule by mouth once daily after Lasix prescription is completed after 5 days senna-docusate (SENNA-S) 8.6-50 mg per tablet Take 1 tablet by mouth twice daily as needed for Constipation. HYDROcodone-acetaminophen (NORCO) 5-325 mg per tablet Take 1 tablet by mouth twice daily as needed for Pain for up to 30 days.Earliest Fill Date: 10/24/17 clindamycin (CLEOCIN) 300 mg capsule Take 1 capsule by mouth every 8 hours. insulin lispro (HUMALOG) 100 unit/mL injection If blood glucose is 151-200 = 2 unit; 201-250 = 4 units; 251-300 = 6 units; 301-350 = 8 units; 351-400 = 10 units; >400 Call insulin syringe-needle U-100 0.3 mL 31 gauge x 15/64 syrg for insulin injection three times daily as directed carvedilol (COREG) 25 mg tablet Take 0.5 tablets by mouth twice daily with meals. acetaminophen (TYLENOL) 325 mg tablet Take 2 tablets by mouth every 6 hours as needed for Pain or Fever. warfarin (COUMADIN) 2.5 mg tablet Take 1 tablet by mouth daily as directed. TRULICITY 1.5 mg/0.5 mL pnij INJECT 1.5MG SUBCUTANEOUSLY ONCE EACH WEEK, DISCARD PEN AFTER insulin glargine (LANTUS U-100 INSULIN) 100 unit/mL injection Inject 30 Units subcutaneously daily at bedtime. Via Syringe atorvastatin (LIPITOR) 80 mg tablet Take 1 tablet by mouth once daily. gemfibrozil (LOPID) 600 mg tablet Take 0.5 tablets by mouth twice daily. Magnesium Oxide 500 mg cap Take 500 mg by mouth once daily. Insulin Syringe-Needle U-100 (BD INSULIN SYRINGE ULTRAFINE) 0.3 mL 31 gauge x 5/16 syrg 10 Units once daily. (Patient taking differently: Inject 30 Units subcutaneously once daily. ) nitroglycerin sublingual (NITROSTAT) 0.4 mg SL tablet Dissolve 1 tablet under the tongue as needed. DISSOLVE ON TONGUE FOR CHEST PAIN. IF NO PAIN RELIEF, CALL 911 blood sugar diagnostic (FREESTYLE LITE STRIPS) test strip TEST BLOOD SUGAR ONCE DAILY. DX: E11.65. Insulin: No (Patient taking differently: three times daily. ) Cholecalciferol, Vitamin D3, 1,000 unit cap Take 1 capsule by mouth once daily. No current facility-administered medications on file prior to visit. FAMILY HISTORY Problem Relation Age of Onset - Heart Father - Hypertension Maternal Grandmother - GI Maternal Grandmother - Heart Paternal Grandfather - Cancer Mother lung - Cancer Sister Non hodgkins lymphoma - Diabetes Maternal Grandfather Social History Substance Use Topics - Smoking status: Never Smoker - Smokeless tobacco: Never Used - Alcohol use Yes BP 96/67 (BP Site: Left Arm, BP Position: Sitting, BP Cuff Size: Large Adult) Pulse 102 Resp 16 Wt 100.1 kg (220 lb 9.6 oz) SpO2 98% BMI 33.54 kg/m? . OBJECTIVE: APPEARANCE Well appearing, alert, in no acute distress, well-hydrated, well nourished. and he is able to stand comfortably in Lasix on an comfortably with minimal if any pain in the right anterior hip. However, after standing for about 10 minutes he was experiencing excruciating pain in the right anteromedial thigh when trying to lower himself slowly into a chair. Later during the appointment after he had been lying supine for 5-10 minutes, he was then able to stand up from the exam table and sit down in the chair without any pain whatsoever in the anteromedial groin. MALE Penis normal, no urethral discharge, scrotum normal to palpation, no hernias EXTREMITIES some pain with active right lower leg raise while supine with pain in the anterior hip. However, passive rotation in the hip and range of motion is well tolerated. Some pain with passive right hip flexion 90?. The right femoral pulse is palpable and not exquisitely tender. No evidence of ecchymoses in the right groin or medial thigh. No tenderness of the right medial thigh muscle Lab Results for NOMAN STONE ( ) as of 10/24/2017 17:35 Ref. Range 10/04/2017 09:26 10/04/2017 09:53 10/10/2017 10:41 10/17/2017 11:31 Sodium Latest Ref Range: 136 - 144 mmol/L 141 Potassium Latest Ref Range: 3.7 - 5.1 mmol/L 4.8 Chloride Latest Ref Range: 97 - 105 mmol/L 103 CO2 Latest Ref Range: 22 - 30 mmol/L 27 BUN Latest Ref Range: 9 - 24 mg/dL 19 Creatinine Latest Ref Range: 0.73 - 1.22 mg/dL 1.41 (H) Glucose Latest Ref Range: 74 - 99 mg/dL 180 (H) Protein, Total Latest Ref Range: 6.3 - 8.0 g/dL 7.1 Calcium Latest Ref Range: 8.5 - 10.2 mg/dL 9.4 Albumin Latest Ref Range: 3.9 - 4.9 g/dL 3.6 (L) Bilirubin, Total Latest Ref Range: 0.2 - 1.3 mg/dL 0.4 Alkaline Phosphatase Latest Ref Range: 36 - 108 U/L 65 ALT Latest Ref Range: 10 - 54 U/L 16 AST Latest Ref Range: 14 - 40 U/L 14 Anion Gap Latest Ref Range: 9 - 18 mmol/L 11 eGFR- Unknown >60 eGFR-All Other Races Latest Units: . 51 Creatinine, Ur Random (UCRR) Latest Ref Range: 20 - 300 mg/dL 181.9 Hematocrit Latest Ref Range: 39.0 - 51.0 % 37.4 (L) WBC Latest Ref Range: 3.70 - 11.00 k/uL 11.33 (H) RBC Latest Ref Range: 4.20 - 6.00 m/uL 3.99 (L) Hemoglobin Latest Ref Range: 13.0 - 17.0 g/dL 11.7 (L) Platelet Count Latest Ref Range: 150 - 400 k/uL 418 (H) MCV Latest Ref Range: 80.0 - 100.0 fL 93.7 MCH Latest Ref Range: 26.0 - 34.0 pG 29.3 MCHC Latest Ref Range: 30.5 - 36.0 g/dL 31.3 MPV Latest Ref Range: 9.0 - 12.7 fL 9.9 RDW-CV Latest Ref Range: 11.5 - 15.0 % 14.0 Absolute nRBC Latest Ref Range: <0.01 k/uL <0.01 Albumin/Creat Ratio Latest Ref Range: 0 - 30 mg/g 15 Albumin, Urine Random Latest Ref Range: 0.0 - 23.0 mg/L 27.7 (H) INR (POCT) Latest Ref Range: 0.8 - 1.2 2.1 (H) 2.0 (H) Internal Quality Check Unknown Acceptable Acceptable ASSESSMENT: R hip labrum tear vs R femoral artery aneurysm PLAN: refer to Dr Coker for evaluation of cath site R femoral artery consider orthopedist referral to evaluate labrum of R hip careful activity As we discussed possible MRI right hip but he was told that he could not have an MRI scan until at least 6 weeks have passed from the heart catheterization. We discussed orthopedic referral prior to ordering MRI scan. same medications--continue to use hydrocodone as needed for pain. He notes that he is taking 2 per day now for adequate pain relief 40 minute visit with greater than 50% obtaining history, exam, answering all questions Mian Wilburn III MD PDMP website checked and validated. All prescriptions have been APPROPRIATELY filled. No suspicious activity was identified. 10/24/2017 by MIROSLAVA Sainz MD, III MD CNOV Observed: 10/24/2017 Status: COMPLETED Source: [place] 4:20 PM [facility] REPOSITORY Office Visit (FAMPWS) NOMAN STONE ([id number]) 1955 M Date Time Provider Department 10/24/17 4:20 PM MIAN WILBURN IIIWS During your visit today, we recorded the following information about you: Pulse Respiration Blood pressure Weight 102/minute 16/minute 96/67 100.1 kg Mian Wilburn III MD 10/24/2017 7:22 PM Signed SUBJECTIVE: This is a 62 year old male that is here today for sudden onset of severe pain R ant hip starting 2 wks ago when he pivotted to the right. The pain is exacerbated by sitting down after standing. Pain subsides after sitting for awhile or supine for awhile. Able to walk about a block with mild pain, but he does not think he will be able to start cardiac rehab. Of importance to patient had a heart catheterization through the right femoral artery about 6-7 weeks ago. (4 weeks prior to the onset of these symptoms). He does not have any history of ecchymosis or swelling of the thigh after experiencing the intense acute onset of pain in the right anterior hip. Both patient and have had concerns whether there was any injury done to the artery with his pivoting. We discussed that it would be helpful to have an opinion from the equipment manager regarding this. He has a cardiology appointment a week from today, but I encouraged trying to get an earlier appointment. We discussed delaying ordering CT angiogram of the artery unless it is deemed necessary by the equipment manager in order to spare his kidneys yet another exposure to contrast dye. PAST MEDICAL HISTORY Diagnosis Date - Acute renal failure (HCC) - CAD (coronary artery disease) - Diabetes mellitus (HCC) 11/17/2010 - Essential hypertension, benign - GERD (gastroesophageal reflux disease) 11/17/2010 - H/O percutaneous transluminal coronary angioplasty - Hyperlipidemia - Low testosterone 12/12/2011 - Other and unspecified hyperlipidemia - PAD (peripheral artery disease) ([facility]) - Paroxysmal atrial fibrillation (HCC) - Raynaud's syndrome - Shift work sleep disorder 05/03/2015 - Type 2 diabetes mellitus with stage 3 chronic kidney disease, with long-term current use of insulin ([facility]) 12/09/2015 - Type II or unspecified type diabetes mellitus with peripheral circulatory disorders, uncontrolled(250.72) 08/28/2013 Current Outpatient Prescriptions on File Prior to Visit: clopidogrel (PLAVIX) 75 mg tablet Take 1 tablet by mouth once daily. Hydrochlorothiazide 12.5 mg capsule Take one capsule by mouth once daily after Lasix prescription is completed after 5 days senna-docusate (SENNA-S) 8.6-50 mg per tablet Take 1 tablet by mouth twice daily as needed for Constipation. HYDROcodone-acetaminophen (NORCO) 5-325 mg per tablet Take 1 tablet by mouth twice daily as needed for Pain for up to 30 days.Earliest Fill Date: 10/24/17 clindamycin (CLEOCIN) 300 mg capsule Take 1 capsule by mouth every 8 hours. insulin lispro (HUMALOG) 100 unit/mL injection If blood glucose is 151-200 = 2 unit; 201-250 = 4 units; 251-300 = 6 units; 301-350 = 8 units; 351-400 = 10 units; >400 Call insulin syringe-needle U-100 0.3 mL 31 gauge x 15/64 syrg for insulin injection three times daily as directed carvedilol (COREG) 25 mg tablet Take 0.5 tablets by mouth twice daily with meals. acetaminophen (TYLENOL) 325 mg tablet Take 2 tablets by mouth every 6 hours as needed for Pain or Fever. warfarin (COUMADIN) 2.5 mg tablet Take 1 tablet by mouth daily as directed. TRULICITY 1.5 mg/0.5 mL pnij INJECT 1.5MG SUBCUTANEOUSLY ONCE EACH WEEK, DISCARD PEN AFTER insulin glargine (LANTUS U-100 INSULIN) 100 unit/mL injection Inject 30 Units subcutaneously daily at bedtime. Via Syringe atorvastatin (LIPITOR) 80 mg tablet Take 1 tablet by mouth once daily. gemfibrozil (LOPID) 600 mg tablet Take 0.5 tablets by mouth twice daily. Magnesium Oxide 500 mg cap Take 500 mg by mouth once daily. Insulin Syringe-Needle U-100 (BD INSULIN SYRINGE ULTRAFINE) 0.3 mL 31 gauge x 5/16 syrg 10 Units once daily. (Patient taking differently: Inject 30 Units subcutaneously once daily. ) nitroglycerin sublingual (NITROSTAT) 0.4 mg SL tablet Dissolve 1 tablet under the tongue as needed. DISSOLVE ON TONGUE FOR CHEST PAIN. IF NO PAIN RELIEF, CALL 911 blood sugar diagnostic (FREESTYLE LITE STRIPS) test strip TEST BLOOD SUGAR ONCE DAILY. DX: E11.65. Insulin: No (Patient taking differently: three times daily. ) Cholecalciferol, Vitamin D3, 1,000 unit cap Take 1 capsule by mouth once daily. No current facility-administered medications on file prior to visit. FAMILY HISTORY Problem Relation Age of Onset - Heart Father - Hypertension Maternal Grandmother - GI Maternal Grandmother - Heart Paternal Grandfather - Cancer Mother lung - Cancer Sister Non hodgkins lymphoma - Diabetes Maternal Grandfather Social History Substance Use Topics - Smoking status: Never Smoker - Smokeless tobacco: Never Used - Alcohol use Yes BP 96/67 (BP Site: Left Arm, BP Position: Sitting, BP Cuff Size: Large Adult) Pulse 102 Resp 16 Wt 100.1 kg (220 lb 9.6 oz) SpO2 98% BMI 33.54 kg/m? . OBJECTIVE: APPEARANCE Well appearing, alert, in no acute distress, well- hydrated, well nourished. and he is able to stand comfortably in Lasix on an comfortably with minimal if any pain in the right anterior hip. However, after standing for about 10 minutes he was experiencing excruciating pain in the right anteromedial thigh when trying to lower himself slowly into a chair. Later during the appointment after he had been lying supine for 5-10 minutes, he was then able to stand up from the exam table and sit down in the chair without any pain whatsoever in the anteromedial groin. MALE Penis normal, no urethral discharge, scrotum normal to palpation, no hernias EXTREMITIES some pain with active right lower leg raise while supine with pain in the anterior hip. However, passive rotation in the hip and range of motion is well tolerated. Some pain with passive right hip flexion 90?. The right femoral pulse is palpable and not exquisitely tender. No evidence of ecchymoses in the right groin or medial thigh. No tenderness of the right medial thigh muscle Lab Results for NOMAN STONE ( ) as of 10/24/2017 17:35 Ref. Range 10/04/2017 09:26 10/04/2017 09:53 10/10/2017 10:41 10/17/2017 11:31 Sodium Latest Ref Range: 136 - 144 mmol/L 141 Potassium Latest Ref Range: 3.7 - 5.1 mmol/L 4.8 Chloride Latest Ref Range: 97 - 105 mmol/L 103 CO2 Latest Ref Range: 22 - 30 mmol/L 27 BUN Latest Ref Range: 9 - 24 mg/dL 19 Creatinine Latest Ref Range: 0.73 - 1.22 mg/dL 1.41 (H) Glucose Latest Ref Range: 74 - 99 mg/dL 180 (H) Protein, Total Latest Ref Range: 6.3 - 8.0 g/dL 7.1 Calcium Latest Ref Range: 8.5 - 10.2 mg/dL 9.4 Albumin Latest Ref Range: 3.9 - 4.9 g/dL 3.6 (L) Bilirubin, Total Latest Ref Range: 0.2 - 1.3 mg/dL 0.4 Alkaline Phosphatase Latest Ref Range: 36 - 108 U/L 65 ALT Latest Ref Range: 10 - 54 U/L 16 AST Latest Ref Range: 14 - 40 U/L 14 Anion Gap Latest Ref Range: 9 - 18 mmol/L 11 eGFR- Unknown >60 eGFR-All Other Races Latest Units: . 51 Creatinine, Ur Random (UCRR) Latest Ref Range: 20 - 300 mg/dL 181.9 Hematocrit Latest Ref Range: 39.0 - 51.0 % 37.4 (L) WBC Latest Ref Range: 3.70 - 11.00 k/uL 11.33 (H) RBC Latest Ref Range: 4.20 - 6.00 m/uL 3.99 (L) Hemoglobin Latest Ref Range: 13.0 - 17.0 g/dL 11.7 (L) Platelet Count Latest Ref Range: 150 - 400 k/uL 418 (H) MCV Latest Ref Range: 80.0 - 100.0 fL 93.7 MCH Latest Ref Range: 26.0 - 34.0 pG 29.3 MCHC Latest Ref Range: 30.5 - 36.0 g/dL 31.3 MPV Latest Ref Range: 9.0 - 12.7 fL 9.9 RDW-CV Latest Ref Range: 11.5 - 15.0 % 14.0 Absolute nRBC Latest Ref Range: <0.01 k/uL <0.01 Albumin/Creat Ratio Latest Ref Range: 0 - 30 mg/g 15 Albumin, Urine Random Latest Ref Range: 0.0 - 23.0 mg/L 27.7 (H) INR (POCT) Latest Ref Range: 0.8 - 1.2 2.1 (H) 2.0 (H) Internal Quality Check Unknown Acceptable Acceptable ASSESSMENT: R hip labrum tear vs R femoral artery aneurysm PLAN: refer to Dr Coker for evaluation of cath site R femoral artery consider orthopedist referral to evaluate labrum of R hip careful activity As we discussed possible MRI right hip but he was told that he could not have an MRI scan until at least 6 weeks have passed from the heart catheterization. We discussed orthopedic referral prior to ordering MRI scan. same medications--continue to use hydrocodone as needed for pain. He notes that he is taking 2 per day now for adequate pain relief 40 minute visit with greater than 50% obtaining history, exam, answering all questions Mian Wilburn III MD PDMP website checked and validated. All prescriptions have been APPROPRIATELY filled. No suspicious activity was identified. 10/24/2017 by MIROSLAVA Sainz MD, III MD Frank A Cebul, III MD 10/24/2017 5:45 PM Signed PLAN: refer to Dr Coker for evaluation of cath site R femoral artery consider orthopedist referral to evaluate labrum of R hip careful activity same medications Mian Wilburn III MD Referring Provider: SELF [[id number]] Allergies As of Date: 10/24/2017 Noted Allergy Reaction ADHESIVE 05/12/2008 2 - Rash Comments: Redness to skin LISINOPRIL 11/17/2010 3 - Cough PENICILLINS 06/22/2005 16 - Unknown Comments: childhood Date Reviewed: 10/24/2017 Reviewed by: Haily Flores Ma - Fully Assessed Reason for Visit: right groin pain [Other] Primary Visit Diagnosis:Right hip pain [M25.551] Other Visit Diagnosis:Coronary artery disease involving [place] coronary artery of [place] heart, angina presence unspecified [I25.10] Order(s):CONSULT TO ORTHOPAEDICS [9008] Order #: [id number]: 1 Prescriptions as of 10/24/2017 Sig: CLOPIDOGREL 75 MG TABLET Take 1 tablet by mouth once d* HYDROCHLOROTHIAZIDE 12.5 MG C* Take one capsule by mouth onc* SENNOSIDES 8.6 MG-DOCUSATE SO* Take 1 tablet by mouth twice * HYDROCODONE 5 MG-ACETAMINOPHE* Take 1 tablet by mouth twice * CLINDAMYCIN HCL 300 MG CAPSULE Take 1 capsule by mouth every* INSULIN LISPRO (U-100) 100 UN* If blood glucose is 151- 200 =* INSULIN SYRINGE-NEEDLE U-100 * for insulin injection three t* CARVEDILOL 25 MG TABLET Take 0.5 tablets by mouth twi* ACETAMINOPHEN 325 MG TABLET Take 2 tablets by mouth every* WARFARIN 2.5 MG TABLET Take 1 tablet by mouth daily * TRULICITY 1.5 MG/0.5 ML SUBCU* INJECT 1.5MG SUBCUTANEOUSLY O* INSULIN GLARGINE (U-100) 100 * Inject 30 Units subcutaneousl* ATORVASTATIN 80 MG TABLET Take 1 tablet by mouth once d* GEMFIBROZIL 600 MG TABLET Take 0.5 tablets by mouth twi* MAGNESIUM OXIDE 500 MG CAPSULE Take 500 mg by mouth once malgorzata* INSULIN SYRINGE-NEEDLE U-100 * 10 Units once daily. Patient taking differently: Inject 30 Units subcutaneousl* NITROGLYCERIN 0.4 MG SUBLINGU* Dissolve 1 tablet under the t* BLOOD SUGAR DIAGNOSTIC STRIPS TEST BLOOD SUGAR ONCE DAILY. * Patient taking differently: three times daily. CHOLECALCIFEROL (VITAMIN D3) * Take 1 capsule by mouth once * Problem List As Of Date 10/24/2017 Noted Resolved Raynaud's syndrome [I73.00] Primary hypertension [I10] Priority: C More... Hyperlipidemia [E78.5] Priority: C More... Chronic low back pain [M54.5, G89.29] INVALID FOR* Priority: C More... Anxiety state [F41.1] INVALID FOR* Skin lesion [L98.9] INVALID FOR* Peripheral arterial disease [I73.9] INVALID FOR* Priority: C More... Parotid discomfort [K11.9] INVALID FOR* Diabetes mellitus (HCC) [E11.9] INVALID FOR*08/28/2013 Anxiety [F41.9] INVALID FOR* GERD (gastroesophageal reflux disease) [K21.9] INVALID FOR* Low testosterone [E34.9] INVALID FOR* Diabetes mellitus type 2 with peripheral artery*INVALID FOR* Priority: C More... SUMMARY INVALID FOR*02/14/2015 Priority: Mild More... 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] INVALID FOR*09/27/2017 Priority: B More... CAD (coronary artery disease) [I25.10] INVALID FOR* Priority: A More... Unstable angina (HCC) [I20.0] INVALID FOR*09/27/2017 Priority: C More... 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 Stage 3 chronic kidney disease (HCC) [N18.3] INVALID FOR* Priority: C More... More... Leukocytosis [D72.829] INVALID FOR*09/27/2017 Priority: I More... Discharge planning issues [Z02.9] INVALID FOR* Priority: M More... On mechanically assisted ventilation (HCC) [Z99*INVALID FOR*09/22/2017 Priority: B More... Pain, postoperative, acute [G89.18] INVALID FOR*10/08/2017 Priority: C More... A-fib (HCC) [I48.91] INVALID FOR* Priority: A More... Atelectasis [J98.11] INVALID FOR* Priority: B More... Summary [Z91.89] INVALID FOR* Priority: Very Severe More... Anticoagulation management encounter [Z51.81, Z*INVALID FOR* Priority: C More... Current use of detention anticoagulation [Z79.0*INVALID FOR* Acute renal failure (HCC) [N17.9] INVALID FOR* Bradycardia [R00.1] INVALID FOR* Occlusion and stenosis of bilateral carotid art*INVALID FOR* Status post percutaneous transluminal coronary *INVALID FOR* Other instructions from your clinician: PLAN: refer to Dr Coker for evaluation of cath site R femoral artery consider orthopedist referral to evaluate labrum of R hip careful activity same medications Mian Wilburn III MD Encounter Status:Closed by MIAN WILBURN III, MD on 10/24/17 PROGRESS Observed: 10/23/2017 Status: COMPLETED Source: [place] 12:52 PM [facility] REPOSITORY HNO ID: [id number] Author: Tremaine Sepulveda (Rn) Service: (none) Author Type: Registered Nurse Type: Progress Notes Filed: 10/26/2017 4:56 PM Note Text: PRIMARY CARE COORDINATION FOLLOW-UP NOTE Provider Action/FYI 1. Spk with Pt denies CP or Sob, or Edema, denies bleeding from any site, is out of breath with walking long distances, CABG chest and left leg incisions with scabs without signs of infection. 2. Pt is concerned about Right groin pain, denies bruising or bleeding, denies swelling or redness at site, can't lift leg, heard a pop after rolling over onto side, pain is better with sitting 3. F/u with Dr. Coker 10/31/17 First post-op Dx: Cabg x5 with Ablation 4. Pt has an device (Alivecor Cardia) with an Alisson on his phone that runs a 30 seconds EKG strip, no Afib since surgery, Pt has had a weird sensation but nothing showed up on the EKG 5.. FBS range 105-140 denies Hypoglycemic symptoms 6. reports Pt takes 1-2 [place] per day for lower leg circulation pain, Hx stents in Left leg upper and lower legs 7. Scheduled Appt with Dr. Wilburn scheduled 10/24/17 Patient identified by name and date of . YES Spoke to patient's Katie Signature Coco Penaloza RN October 23, 2017 SRAVANINOMAN Observed: 10/23/2017 Status: COMPLETED Source: [place] 12:00 AM [facility] REPOSITORY Patient Outreach (FAMPWS) NOMAN STONE ([id number]) 1955 M Date Time Provider Department 10/23/17 TREMAINE SEPULVEDA (GENIA) FAMPWS During your visit today, we recorded the following information about you: Coco Penaloza RN 10/26/2017 4:56 PM Signed PRIMARY CARE COORDINATION FOLLOW-UP NOTE Provider Action/FYI 1. Spk with Pt denies CP or Sob, or Edema, denies bleeding from any site, is out of breath with walking long distances, CABG chest and left leg incisions with scabs without signs of infection. 2. Pt is concerned about Right groin pain, denies bruising or bleeding, denies swelling or redness at site, can't lift leg, heard a pop after rolling over onto side, pain is better with sitting 3. F/u with Dr. Coker 10/31/17 First post-op Dx: Cabg x5 with Ablation 4. Pt has an device (Alivecor Cardia) with an Alisson on his phone that runs a 30 seconds EKG strip, no Afib since surgery, Pt has had a weird sensation but nothing showed up on the EKG 5.. FBS range 105-140 denies Hypoglycemic symptoms 6. reports Pt takes 1-2 [place] per day for lower leg circulation pain, Hx stents in Left leg upper and lower legs 7. Scheduled Appt with Dr. Wilburn scheduled 10/24/17 Patient identified by name and date of . YES Spoke to patient's Katie Signature Coco Penaloza RN October 23, 2017 Allergies As of Date: 10/23/2017 Noted Allergy Reaction ADHESIVE 05/12/2008 2 - Rash Comments: Redness to skin LISINOPRIL 11/17/2010 3 - Cough PENICILLINS 06/22/2005 16 - Unknown Comments: childhood Date Reviewed: 10/08/2017 Reviewed by: Juliette Garcia) SEBASTIAN Arriaza - Fully Assessed Reason for Visit: [facility] Follow Up [3610] Cmt: [facility] D/C 09/27/17, DX CABG x5, Ablation Reason For Visit History Recorded Prescriptions as of 10/23/2017 Sig: CLOPIDOGREL 75 MG TABLET Take 1 tablet by mouth once d* HYDROCHLOROTHIAZIDE 12.5 MG C* Take one capsule by mouth onc* SENNOSIDES 8.6 MG-DOCUSATE SO* Take 1 tablet by mouth twice * HYDROCODONE 5 MG-ACETAMINOPHE* Take 1 tablet by mouth twice * CLINDAMYCIN HCL 300 MG CAPSULE Take 1 capsule by mouth every* INSULIN LISPRO (U-100) 100 UN* If blood glucose is 151- 200 =* INSULIN SYRINGE-NEEDLE U-100 * for insulin injection three t* CARVEDILOL 25 MG TABLET Take 0.5 tablets by mouth twi* ACETAMINOPHEN 325 MG TABLET Take 2 tablets by mouth every* WARFARIN 2.5 MG TABLET Take 1 tablet by mouth daily * TRULICITY 1.5 MG/0.5 ML SUBCU* INJECT 1.5MG SUBCUTANEOUSLY O* INSULIN GLARGINE (U-100) 100 * Inject 30 Units subcutaneousl* ATORVASTATIN 80 MG TABLET Take 1 tablet by mouth once d* GEMFIBROZIL 600 MG TABLET Take 0.5 tablets by mouth twi* MAGNESIUM OXIDE 500 MG CAPSULE Take 500 mg by mouth once malgorzata* INSULIN SYRINGE-NEEDLE U-100 * 10 Units once daily. Patient taking differently: Inject 30 Units subcutaneousl* NITROGLYCERIN 0.4 MG SUBLINGU* Dissolve 1 tablet under the t* BLOOD SUGAR DIAGNOSTIC STRIPS TEST BLOOD SUGAR ONCE DAILY. * Patient taking differently: three times daily. CHOLECALCIFEROL (VITAMIN D3) * Take 1 capsule by mouth once * Problem List As Of Date 10/23/2017 Noted Resolved Raynaud's syndrome [I73.00] Primary hypertension [I10] Priority: C More... Hyperlipidemia [E78.5] Priority: C More... Chronic low back pain [M54.5, G89.29] INVALID FOR* Priority: C More... Anxiety state [F41.1] INVALID FOR* Skin lesion [L98.9] INVALID FOR* Peripheral arterial disease [I73.9] INVALID FOR* Priority: C More... Parotid discomfort [K11.9] INVALID FOR* Diabetes mellitus (HCC) [E11.9] INVALID FOR*08/28/2013 Anxiety [F41.9] INVALID FOR* GERD (gastroesophageal reflux disease) [K21.9] INVALID FOR* Low testosterone [E34.9] INVALID FOR* Diabetes mellitus type 2 with peripheral artery*INVALID FOR* Priority: C More... SUMMARY INVALID FOR*02/14/2015 Priority: Mild More... 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] INVALID FOR*09/27/2017 Priority: B More... CAD (coronary artery disease) [I25.10] INVALID FOR* Priority: A More... Unstable angina (HCC) [I20.0] INVALID FOR*09/27/2017 Priority: C More... 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 Stage 3 chronic kidney disease (HCC) [N18.3] INVALID FOR* Priority: C More... More... Leukocytosis [D72.829] INVALID FOR*09/27/2017 Priority: I More... Discharge planning issues [Z02.9] INVALID FOR* Priority: M More... On mechanically assisted ventilation (HCC) [Z99*INVALID FOR*09/22/2017 Priority: B More... Pain, postoperative, acute [G89.18] INVALID FOR*10/08/2017 Priority: C More... A-fib (HCC) [I48.91] INVALID FOR* Priority: A More... Atelectasis [J98.11] INVALID FOR* Priority: B More... Summary [Z91.89] INVALID FOR* Priority: Very Severe More... Anticoagulation management encounter [Z51.81, Z*INVALID FOR* Priority: C More... Current use of intermediate manager anticoagulation [Z79.0*INVALID FOR* Acute renal failure (HCC) [N17.9] INVALID FOR* Bradycardia [R00.1] INVALID FOR* Occlusion and stenosis of bilateral carotid art*INVALID FOR* Status post percutaneous transluminal coronary *INVALID FOR* Disposition: Return in about 4 weeks (around 11/20/2017). Follow-up and Disposition History Recorded Encounter Status:Closed by COCO PENALOZA on 10/26/17 PROGRESS Observed: 10/17/2017 Status: COMPLETED Source: [place] 12:46 PM [facility] REPOSITORY HNO ID: [id number] Author: Haily Flores Ma Service: (none) Author Type: (none) Type: Progress Notes Filed: 10/17/2017 12:47 PM Note Text: Per PCP note patient to continue on same dose AND recheck as scheduled in 2 weeks. Tracker previously updated and patient previously scheduled. PROGRESS Observed: 10/17/2017 Status: COMPLETED Source: [place] 11:45 AM [facility] REPOSITORY HNO ID: [id number] Author: Leanne East RN Service: (none) Author Type: (none) Type: Progress Notes Filed: 10/17/2017 12:47 PM Note Text: INR 2.0-results reviewed with patient. Current Coumadin dose is 2.5 mg daily and finished antibiotic on 10/11/17. With no recent dose change Last INR on 10/10 was 2.1 and INR on 10/03 was 2.5. Patient wishes to continue on same dose and they would only be contacted with different instructions after provider review. Patient currently scheduled in 2 weeks in coumadin clinic. Please note and agree. Leanne East RN PROGRESS Observed: 10/10/2017 Status: COMPLETED Source: [place] 2:27 PM [facility] REPOSITORY HNO ID: [id number] Author: Herminia Browning RN Service: (none) Author Type: (none) Type: Progress Notes Filed: 10/10/2017 2:27 PM Note Text: Patient's notified of below. Verbalized understanding. Scheduled for one week follow up PROGRESS Observed: 10/10/2017 Status: COMPLETED Source: [place] 2:25 PM [facility] REPOSITORY HNO ID: [id number] Author: Herminia Browning RN Service: (none) Author Type: (none) Type: Progress Notes Filed: 10/10/2017 2:25 PM Note Text: Per Dr. Wilburn: continue same. Follow up in 1 week. PROGRESS Observed: 10/10/2017 Status: COMPLETED Source: [place] 10:46 AM [facility] REPOSITORY HNO ID: [id number] Author: Herminia Browning RN Service: (none) Author Type: (none) Type: Progress Notes Filed: 10/10/2017 11:01 AM Note Text: Patient had INR completed at [facility] Patient's INR is 2.1 Patient is currently taking 2.5mg daily Patient has had no medication and no change in diet. Patient will be ending doses of Clindamycin tomorrow. Advised patient that they would be contacted regarding medication dose and follow-up once reviewed by provider. After provider review, please contact patient with information and schedule follow-up appointment with coumadin clinic. PROGRESS Observed: 10/08/2017 Status: COMPLETED Source: [place] 3:25 PM [facility] REPOSITORY HNO ID: [id number] Author: Mian Wilburn III Service: (none) Author Type: Physician Type: Progress Notes Filed: 10/08/2017 7:00 PM Note Text: SUBJECTIVE: This is a 61 year old male that is here today for Chronic Medical Conditions. Reports reviewed 1. recent CABG 5, ablation.(09/21/17). Lost 20 lbs. Has incision pain but no angina. 2. diabetes mellitus II--HbA1c 8.2. Now on trulicity and insulin. No hypoglycemia 3. hypertension: 4. atrial fib on coumadin. Asymptomatic. since ablation 5. ch constipation--using MOM and prune juice q3days 6. Peripheral arterial disease on chronic opiates. Uses 1 or 2 hydrocodone per day primarily for claudication pain PAST MEDICAL HISTORY Diagnosis Date - Acute renal failure (HCC) - CAD (coronary artery disease) - Diabetes mellitus ([facility]) 11/17/2010 - Essential hypertension, benign - GERD (gastroesophageal reflux disease) 11/17/2010 - H/O percutaneous transluminal coronary angioplasty - Hyperlipidemia - Low testosterone 12/12/2011 - Other and unspecified hyperlipidemia - PAD (peripheral artery disease) ([facility]) - Paroxysmal atrial fibrillation ([facility]) - Raynaud's syndrome - Shift work sleep disorder 05/03/2015 - Type 2 diabetes mellitus with stage 3 chronic kidney disease, with long-term current use of insulin ([facility]) 12/09/2015 - Type II or unspecified type diabetes mellitus with peripheral circulatory disorders, uncontrolled(250.72) 08/28/2013 Current Outpatient Prescriptions on File Prior to Visit: clindamycin (CLEOCIN) 300 mg capsule Take 1 capsule by mouth every 8 hours. insulin lispro (HUMALOG) 100 unit/mL injection If blood glucose is 151-200 = 2 unit; 201-250 = 4 units; 251-300 = 6 units; 301-350 = 8 units; 351-400 = 10 units; >400 Call insulin syringe-needle U-100 0.3 mL 31 gauge x 15/64 syrg for insulin injection three times daily as directed carvedilol (COREG) 25 mg tablet Take 0.5 tablets by mouth twice daily with meals. acetaminophen (TYLENOL) 325 mg tablet Take 2 tablets by mouth every 6 hours as needed for Pain or Fever. warfarin (COUMADIN) 2.5 mg tablet Take 1 tablet by mouth daily as directed. senna-docusate (SENNA-S) 8.6-50 mg per tablet Take 1 tablet by mouth twice daily as needed for Constipation. Hydrochlorothiazide 12.5 mg capsule Take one capsule by mouth once daily after Lasix prescription is completed after 5 days TRULICITY 1.5 mg/0.5 mL pnij INJECT 1.5MG SUBCUTANEOUSLY ONCE EACH WEEK, DISCARD PEN AFTER insulin glargine (LANTUS U-100 INSULIN) 100 unit/mL injection Inject 30 Units subcutaneously daily at bedtime. Via Syringe atorvastatin (LIPITOR) 80 mg tablet Take 1 tablet by mouth once daily. gemfibrozil (LOPID) 600 mg tablet Take 0.5 tablets by mouth twice daily. clopidogrel (PLAVIX) 75 mg tablet Take 1 tablet by mouth once daily. Magnesium Oxide 500 mg cap Take 500 mg by mouth once daily. Insulin Syringe-Needle U-100 (BD INSULIN SYRINGE ULTRAFINE) 0.3 mL 31 gauge x 5/16 syrg 10 Units once daily. (Patient taking differently: Inject 30 Units subcutaneously once daily. ) nitroglycerin sublingual (NITROSTAT) 0.4 mg SL tablet Dissolve 1 tablet under the tongue as needed. DISSOLVE ON TONGUE FOR CHEST PAIN. IF NO PAIN RELIEF, CALL 911 blood sugar diagnostic (FREESTYLE LITE STRIPS) test strip TEST BLOOD SUGAR ONCE DAILY. DX: E11.65. Insulin: No (Patient taking differently: three times daily. ) Cholecalciferol, Vitamin D3, 1,000 unit cap Take 1 capsule by mouth once daily. No current facility-administered medications on file prior to visit. FAMILY HISTORY Problem Relation Age of Onset - Heart Father - Hypertension Maternal Grandmother - GI Maternal Grandmother - Heart Paternal Grandfather - Cancer Mother lung - Cancer Sister Non hodgkins lymphoma - Diabetes Maternal Grandfather Social History Substance Use Topics - Smoking status: Never Smoker - Smokeless tobacco: Never Used - Alcohol use Yes BP 91/65 Pulse 87 Resp 18 Wt 98.9 kg (218 lb) BMI 33.15 kg/m? . OBJECTIVE: APPEARANCE Well appearing, alert, in no acute distress, well-hydrated, well nourished., Obese NECK Supple, no adenopathy; thyroid symmetric, normal size, no bruits HEART RRR with normal S1 and S2, no murmurs, no gallops, no JVD appreciated and Well-healing sternotomy scar without dehiscence or significant wound erythema LUNG clear to auscultation EXTREMITIES Extremities normal, No deformities, No skin discoloration, No edema, Normal pulses bilaterally. and pain harvesting sites look good ASSESSMENT: ASHD--stable atrial fib, rate controlled, on coumadin INR 2.5 hypertension diabetes mellitus II--not at goal Raynoud's syndrome Peripheral arterial disease Long-term prescription of opiates?stable use PLAN: healthy diet and progress activity as instructed by equipment manager same medications follow up with Dr Coker as appointed return to office 6 mos and as needed INR in 2 days Mian Wilburn III, MD PDMP website checked and validated. All prescriptions have been APPROPRIATELY filled. No suspicious activity was identified. 10/08/2017 by MIROSLAVA Sainz MD, III MD CNOV Observed: 10/08/2017 Status: COMPLETED Source: [place] 3:00 PM [facility] REPOSITORY Office Visit (FAMPWS) NOMAN STONE ([id number]) 1955 M Date Time Provider Department 10/08/17 3:00 PM MIAN WILBURN III During your visit today, we recorded the following information about you: Pulse Respiration Blood pressure Weight 87/minute 18/minute 91/65 98.9 kg Mian Wilburn III MD 10/08/2017 7:00 PM Signed SUBJECTIVE: This is a 61 year old male that is here today for Chronic Medical Conditions. Reports reviewed 1. recent CABG 5, ablation.(09/21/17). Lost 20 lbs. Has incision pain but no angina. 2. diabetes mellitus II--HbA1c 8.2. Now on trulicity and insulin. No hypoglycemia 3. hypertension: 4. atrial fib on coumadin. Asymptomatic. since ablation 5. ch constipation--using MOM and prune juice q3days 6. Peripheral arterial disease on chronic opiates. Uses 1 or 2 hydrocodone per day primarily for claudication pain PAST MEDICAL HISTORY Diagnosis Date - Acute renal failure (HCC) - CAD (coronary artery disease) - Diabetes mellitus (HCC) 11/17/2010 - Essential hypertension, benign - GERD (gastroesophageal reflux disease) 11/17/2010 - H/O percutaneous transluminal coronary angioplasty - Hyperlipidemia - Low testosterone 12/12/2011 - Other and unspecified hyperlipidemia - PAD (peripheral artery disease) ([facility]) - Paroxysmal atrial fibrillation (HCC) - Raynaud's syndrome - Shift work sleep disorder 05/03/2015 - Type 2 diabetes mellitus with stage 3 chronic kidney disease, with long-term current use of insulin ([facility]) 12/09/2015 - Type II or unspecified type diabetes mellitus with peripheral circulatory disorders, uncontrolled(250.72) 08/28/2013 Current Outpatient Prescriptions on File Prior to Visit: clindamycin (CLEOCIN) 300 mg capsule Take 1 capsule by mouth every 8 hours. insulin lispro (HUMALOG) 100 unit/mL injection If blood glucose is 151-200 = 2 unit; 201-250 = 4 units; 251-300 = 6 units; 301-350 = 8 units; 351-400 = 10 units; >400 Call insulin syringe-needle U-100 0.3 mL 31 gauge x 15/64 syrg for insulin injection three times daily as directed carvedilol (COREG) 25 mg tablet Take 0.5 tablets by mouth twice daily with meals. acetaminophen (TYLENOL) 325 mg tablet Take 2 tablets by mouth every 6 hours as needed for Pain or Fever. warfarin (COUMADIN) 2.5 mg tablet Take 1 tablet by mouth daily as directed. senna-docusate (SENNA-S) 8.6-50 mg per tablet Take 1 tablet by mouth twice daily as needed for Constipation. Hydrochlorothiazide 12.5 mg capsule Take one capsule by mouth once daily after Lasix prescription is completed after 5 days TRULICITY 1.5 mg/0.5 mL pnij INJECT 1.5MG SUBCUTANEOUSLY ONCE EACH WEEK, DISCARD PEN AFTER insulin glargine (LANTUS U-100 INSULIN) 100 unit/mL injection Inject 30 Units subcutaneously daily at bedtime. Via Syringe atorvastatin (LIPITOR) 80 mg tablet Take 1 tablet by mouth once daily. gemfibrozil (LOPID) 600 mg tablet Take 0.5 tablets by mouth twice daily. clopidogrel (PLAVIX) 75 mg tablet Take 1 tablet by mouth once daily. Magnesium Oxide 500 mg cap Take 500 mg by mouth once daily. Insulin Syringe-Needle U-100 (BD INSULIN SYRINGE ULTRAFINE) 0.3 mL 31 gauge x 5/16 syrg 10 Units once daily. (Patient taking differently: Inject 30 Units subcutaneously once daily. ) nitroglycerin sublingual (NITROSTAT) 0.4 mg SL tablet Dissolve 1 tablet under the tongue as needed. DISSOLVE ON TONGUE FOR CHEST PAIN. IF NO PAIN RELIEF, CALL 911 blood sugar diagnostic (FREESTYLE LITE STRIPS) test strip TEST BLOOD SUGAR ONCE DAILY. DX: E11.65. Insulin: No (Patient taking differently: three times daily. ) Cholecalciferol, Vitamin D3, 1,000 unit cap Take 1 capsule by mouth once daily. No current facility-administered medications on file prior to visit. FAMILY HISTORY Problem Relation Age of Onset - Heart Father - Hypertension Maternal Grandmother - GI Maternal Grandmother - Heart Paternal Grandfather - Cancer Mother lung - Cancer Sister Non hodgkins lymphoma - Diabetes Maternal Grandfather Social History Substance Use Topics - Smoking status: Never Smoker - Smokeless tobacco: Never Used - Alcohol use Yes BP 91/65 Pulse 87 Resp 18 Wt 98.9 kg (218 lb) BMI 33.15 kg/m? . OBJECTIVE: APPEARANCE Well appearing, alert, in no acute distress, well- hydrated, well nourished., Obese NECK Supple, no adenopathy; thyroid symmetric, normal size, no bruits HEART RRR with normal S1 and S2, no murmurs, no gallops, no JVD appreciated and Well-healing sternotomy scar without dehiscence or significant wound erythema LUNG clear to auscultation EXTREMITIES Extremities normal, No deformities, No skin discoloration, No edema, Normal pulses bilaterally. and pain harvesting sites look good ASSESSMENT: ASHD--stable atrial fib, rate controlled, on coumadin INR 2.5 hypertension diabetes mellitus II--not at goal Raynoud's syndrome Peripheral arterial disease Long-term prescription of opiates?stable use PLAN: healthy diet and progress activity as instructed by equipment manager same medications follow up with Dr Coker as appointed return to office 6 mos and as needed INR in 2 days Mian Wilburn III, MD PDMP website checked and validated. All prescriptions have been APPROPRIATELY filled. No suspicious activity was identified. 10/08/2017 by MIROSLAVA Sainz MD, III MD Frank A Cebul, III MD 10/08/2017 3:59 PM Signed PLAN: healthy diet and progress activity as instructed by equipment manager same medications follow up with Dr Coker as appointed return to office 6 mos and as needed Mian Wilburn III, MD Referring Provider: ALAN BORRERO ([facility]) [[id number]] Allergies As of Date: 10/08/2017 Noted Allergy Reaction ADHESIVE 05/12/2008 2 - Rash Comments: Redness to skin LISINOPRIL 11/17/2010 3 - Cough PENICILLINS 06/22/2005 16 - Unknown Comments: childhood Date Reviewed: 10/08/2017 Reviewed by: Juliette ([facility]) SEBASTIAN Arriaza - Fully Assessed Reason for Visit: Follow up-by pass surgery [Other] Primary Visit Diagnosis:Paroxysmal atrial fibrillation (HCC) [I48.0] Other Visit Diagnoses:Coronary artery disease involving [place] coronary artery of [place] heart, angina presence unspecified [I25.10] Diabetes mellitus type 2 with peripheral artery disease (HCC) [E11.51] Primary hypertension [I10] Current use of intermediate manager anticoagulation [Z79.01] Type 2 diabetes mellitus with stage 3 chronic kidney disease, with long-term current use of insulin (HCC) [E11.22, N18.3, Z79.4] senior care current use of opiate analgesic [Z79.891] PAD (peripheral artery disease) ([facility]) [I73.9] Order(s):clopidogrel (PLAVIX) 75 mg tabletTake 1 tablet by mouth once daily.Disp: 90 tabletRfl: 3 Hydrochlorothiazide 12.5 mg capsuleTake one capsule by mouth once daily after Lasix prescription is completed after 5 daysDisp: 90 capsuleRfl: 3 senna-docusate (SENNA-S) 8.6-50 mg per tabletTake 1 tablet by mouth twice daily as needed for Constipation.Disp: 60 tabletRfl: 3 [START ON 10/24/2017] HYDROcodone-acetaminophen (NORCO) 5-325 mg per tabletTake 1 tablet by mouth twice daily as needed for Pain for up to 30 days. Earliest Fill Date: 10/24/17Disp: 60 tabletRfl: 0 Prescriptions as of 10/08/2017 Sig: CLOPIDOGREL 75 MG TABLET Take 1 tablet by mouth once d* HYDROCHLOROTHIAZIDE 12.5 MG C* Take one capsule by mouth onc* SENNOSIDES 8.6 MG-DOCUSATE SO* Take 1 tablet by mouth twice * CLINDAMYCIN HCL 300 MG CAPSULE Take 1 capsule by mouth every* INSULIN LISPRO (U-100) 100 UN* If blood glucose is 151- 200 =* INSULIN SYRINGE-NEEDLE U-100 * for insulin injection three t* CARVEDILOL 25 MG TABLET Take 0.5 tablets by mouth twi* ACETAMINOPHEN 325 MG TABLET Take 2 tablets by mouth every* WARFARIN 2.5 MG TABLET Take 1 tablet by mouth daily * TRULICITY 1.5 MG/0.5 ML SUBCU* INJECT 1.5MG SUBCUTANEOUSLY O* INSULIN GLARGINE (U-100) 100 * Inject 30 Units subcutaneousl* ATORVASTATIN 80 MG TABLET Take 1 tablet by mouth once d* GEMFIBROZIL 600 MG TABLET Take 0.5 tablets by mouth twi* MAGNESIUM OXIDE 500 MG CAPSULE Take 500 mg by mouth once malgorzata* INSULIN SYRINGE-NEEDLE U-100 * 10 Units once daily. Patient taking differently: Inject 30 Units subcutaneousl* NITROGLYCERIN 0.4 MG SUBLINGU* Dissolve 1 tablet under the t* BLOOD SUGAR DIAGNOSTIC STRIPS TEST BLOOD SUGAR ONCE DAILY. * Patient taking differently: three times daily. CHOLECALCIFEROL (VITAMIN D3) * Take 1 capsule by mouth once * HYDROCODONE 5 MG-ACETAMINOPHE* Take 1 tablet by mouth twice * Problem List As Of Date 10/08/2017 Noted Resolved Raynaud's syndrome [I73.00] Primary hypertension [I10] Priority: C More... Hyperlipidemia [E78.5] Priority: C More... Chronic low back pain [M54.5, G89.29] INVALID FOR* Priority: C More... Anxiety state [F41.1] INVALID FOR* Skin lesion [L98.9] INVALID FOR* Peripheral arterial disease [I73.9] INVALID FOR* Priority: C More... Parotid discomfort [K11.9] INVALID FOR* Diabetes mellitus (HCC) [E11.9] INVALID FOR*08/28/2013 Anxiety [F41.9] INVALID FOR* GERD (gastroesophageal reflux disease) [K21.9] INVALID FOR* Low testosterone [E34.9] INVALID FOR* Diabetes mellitus type 2 with peripheral artery*INVALID FOR* Priority: C More... SUMMARY INVALID FOR*02/14/2015 Priority: Mild More... 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] INVALID FOR*09/27/2017 Priority: B More... CAD (coronary artery disease) [I25.10] INVALID FOR* Priority: A More... Unstable angina (HCC) [I20.0] INVALID FOR*09/27/2017 Priority: C More... Presence of stent in left circumflex coronary a*INVALID FOR* Presence of drug coated stent in posterior desc*INVALID FOR* PAD (peripheral artery disease) (HCC) [I73.9] INVALID FOR* Shift work sleep disorder [G47.26] INVALID FOR* Stable angina (HCC) [I20.8] INVALID FOR* Bowel habit changes [R19.4] INVALID FOR* Type 2 diabetes mellitus with stage 3 chronic k*INVALID FOR* equipment operator [employer] current use of opiate analgesic [Z79.*INVALID FOR* Insulin resistance [E88.81] INVALID FOR* senior care prescription benzodiazepine use [Z79.*INVALID FOR* Obesity, Class II, BMI 35-39.9 [E66.9] INVALID FOR* Priority: C More... Stage 3 chronic kidney disease (HCC) [N18.3] INVALID FOR* Priority: C More... More... Leukocytosis [D72.829] INVALID FOR*09/27/2017 Priority: I More... Discharge planning issues [Z02.9] INVALID FOR* Priority: M More... On mechanically assisted ventilation ([facility]) [Z99*INVALID FOR*09/22/2017 Priority: B More... Pain, postoperative, acute [G89.18] INVALID FOR*10/08/2017 Priority: C More... A-fib ([facility]) [I48.91] INVALID FOR* Priority: A More... Atelectasis [J98.11] INVALID FOR* Priority: B More... Summary [Z91.89] INVALID FOR* Priority: Very Severe More... Anticoagulation management encounter [Z51.81, Z*INVALID FOR* Priority: C More... Current use of detention anticoagulation [Z79.0*INVALID FOR* Acute renal failure (HCC) [N17.9] INVALID FOR* Bradycardia [R00.1] INVALID FOR* Occlusion and stenosis of bilateral carotid art*INVALID FOR* Status post percutaneous transluminal coronary *INVALID FOR* Other instructions from your clinician: PLAN: healthy diet and progress activity as instructed by equipment manager same medications follow up with Dr Coker as appointed return to office 6 mos and as needed Mian Wilburn III, MD Prescriptions ordered this encounter Disp Refills Start End CLOPIDOGREL 75 MG TABLET 90 t* 3 10/08/2017 Route: ORAL Sig: Take 1 tablet by mouth once daily. HYDROCHLOROTHIAZIDE 12.5 MG CAPSULE 90 c* 10/08/2017 Sig: Take one capsule by mouth once daily after Lasix prescription is completed after 5 days SENNOSIDES 8.6 MG-DOCUSATE SODIUM 50* 60 t* 3 10/08/2017 Route: ORAL Sig: Take 1 tablet by mouth twice daily as needed for Constipation. HYDROCODONE 5 MG-ACETAMINOPHEN 325 M* 60 t* 0 10/24/2017 11/23/2017 Class: Print RX Route: ORAL Sig: Take 1 tablet by mouth twice daily as needed for Pain for up to 30 days. Earliest Fill Date: 10/24/17 Medications Discontinued During This Encounter colchicine (COLCRYS) 0.6 mg tablet 10 t* 0 09/27/2017 10/08/2017 Route: ORAL Sig: Take 1 tablet by mouth once daily for 10 days. Disc: Course of therapy completed clopidogrel (PLAVIX) 75 mg tablet 90 t* 3 10/02/2016 10/08/2017 Route: ORAL Sig: Take 1 tablet by mouth once daily. Disc: Reason for discontinue is not on file. Hydrochlorothiazide 12.5 mg capsule 09/27/2017 10/08/2017 Class: Med Update Sig: Take one capsule by mouth once daily after Lasix prescription is completed after 5 days Disc: Reason for discontinue is not on file. senna-docusate (SENNA-S) 8.6-50 mg p* 09/27/2017 10/08/2017 Class: OTC Route: ORAL Sig: Take 1 tablet by mouth twice daily as needed for Constipation. Disc: Reason for discontinue is not on file. Encounter Status:Closed by MIAN WILBURN III, MD on 10/08/17 PROGRESS Observed: 10/04/2017 Status: COMPLETED Source: [place] 7:07 PM [facility] REPOSITORY [facility] ID: [id number] Author: Mian Wilburn III Service: (none) Author Type: Physician Type: Progress Notes Filed: 10/04/2017 7:07 PM Note Text: Chandrakant, Hemoglobin A1c is 8.2 which is better than 1 year ago though not as good as 6 months ago. We will discuss in more detail at the upcoming appointment. Mian Wilburn III, MD, [facility] 12 LEAD ELECTROCARDIOGRAM Observed: 10/04/2017 Status: F Source: [place] 1:13 PM [facility] REPOSITORY [facility] Cardiovascular Services [address] [place] [address] 12 Lead EKG 09/30/174 MR#: [id number] Acct: [id number] Name: NOMAN STONE Rep #: [id number] : 1955 61 From: Tex Coker MD Attending Dr: Status: DEP ER Ordering Dr: Emilee Noe MD Date: 10/01/17 Location: ED Sex: M C Admitted: Test Reason : CP Blood Pressure : / mmHG Vent. Rate : 080 BPM Atrial Rate : 080 BPM P-R Int : 136 ms QRS Dur : 090 ms QT Int : 372 ms P-R-T Axes : 020 029 027 degrees QTc Int : 429 ms Normal sinus rhythm Nonspecific ST and T wave abnormality Abnormal ECG Confirmed by RICHARD JAEGER, TEX ([id number]), acquisitions editor CHRISTINE MILLER ([id number]) on 10/04/2017 1:13:39 PM Referred By: MAE/DEVAN Confirmed By:TEX COKER MD 10/04/17 1313 Date Tex Coker MD CC: Emilee Noe MD; Mian Wilburn III, MD Signed PROGRESS Observed: 10/04/2017 Status: COMPLETED Source: [place] 12:50 PM [facility] REPOSITORY HNO ID: [id number] Author: YANDY Torres Service: (none) Author Type: (none) Type: Progress Notes Filed: 10/08/2017 8:39 PM Note Text: Patient scheduled for 10/08 PROGRESS Observed: 10/04/2017 Status: COMPLETED Source: [place] 12:50 PM [facility] REPOSITORY HNO ID: [id number] Author: YANDY Torres Service: (none) Author Type: (none) Type: Progress Notes Filed: 10/08/2017 8:39 PM Note Text: This note was created using NoteWriter. Subjective Noman Stone is a 61 year old male. Review of Systems Objective There were no vitals taken for this visit. Physical Exam Assessment and Plan CNOV Observed: 10/04/2017 Status: COMPLETED Source: [place] 10:00 AM [facility] REPOSITORY Office Visit (THOSMN) NOMAN STONE ([id number]) 1955 M Date Time Provider Department 10/04/17 10:00 AM ALAN BORRERO ([facility]) THOSMN During your visit today, we recorded the following information about you: Temperature Pulse Blood pressure Weight 98.3 degrees 74/minute 116/72 98.9 kg Alan Borrero APRN.[facility] 10/04/2017 5:24 PM Signed [facility] CTS Post op Follow up Noman J Sahiljeniffer is a 61 year old male who presents who is here for post operative follow up HPI: S/P on 09/21/2017 SURGEON 1: ?Isabel Gray M.D. OPERATION: ?CABG x5, MANCERA-LAD, SVG-ramus, SVG-PDA-PLV, SVG- OM, PV isolation, left atrial appendage excision. Surgical Pathology/Microbiology: FINAL DIAGNOSIS: Left atrial appendage, excision - Mild interstitial fibrosis. Mild epicarditis Discharged on 09/27/2017 PAST MEDICAL HISTORY Diagnosis Date - Acute renal failure (HCC) - CAD (coronary artery disease) - Diabetes mellitus ([facility]) 11/17/2010 - Essential hypertension, benign - GERD (gastroesophageal reflux disease) 11/17/2010 - H/O percutaneous transluminal coronary angioplasty - Hyperlipidemia - Low testosterone 12/12/2011 - Other and unspecified hyperlipidemia - PAD (peripheral artery disease) ([facility]) - Paroxysmal atrial fibrillation (HCC) - Raynaud's syndrome - Shift work sleep disorder 05/03/2015 - Type 2 diabetes mellitus with stage 3 chronic kidney disease, with long-term current use of insulin ([facility]) 12/09/2015 - Type II or unspecified type diabetes mellitus with peripheral circulatory disorders, uncontrolled(250.72) 08/28/2013 PAST SURGICAL HISTORY Procedure Laterality Date - COLONOSCOP W/ OR W/O [facility] SPEC 1-18-11 - COLONOSCOPY W/BX 07-07-15 - EGD W/O [facility] SPECIMEN W/BX 07-07-15 - HEART CATHETERIZATION 2008 with stents - PAST SURGICAL HISTORY OF 10/03/10 bilat lower extremity arteriogram with angioplasty - PAST SURGICAL HISTORY OF 03/09/10 Bilat lower ext arteriogram left pop and sup fem artery angioplasty - PAST SURGICAL HISTORY OF 09/14/05 bilat arteriogram with left pop manometry - PLACE CATH SUBSUBSELECT ART,ABD/PEL 09/14/05 - REM LESION NEC,HAND,SCAL<0.5CM 01/29/10 Exc. right infra-auricular lesion - REM LESION NEC,HAND,SCAL<0.5CM 12/10/13 EXc. right foot lesion - REPAIR ING HERNIA,5+Y/O,REDUCIBL 1963 Hernia repair, inguinal - REVSC OPN/PRG FEM/POP W/ANGIOPLASTY UNI 05-11-10 RIGHT POP - REVSC OPN/PRG FEM/POP W/ANGIOPLASTY UNI 02/17/08 right fem with angioplasty,catheter placed right pop,right sfa,LLE ateriogram - REVSC OPN/PRG FEM/POP W/ANGIOPLASTY UNI 11/26/07 L fem angio with stenting and smart stent placed - REVSC OPN/PRG FEM/POP W/ANGIOPLASTY [facility] 07-17-11 left leg - REVSC OPN/PRQ FEM/POP W/ATHRC/ANGIOP [facility] 05-11-10 RIGHT SFA - REVSC OPN/PRQ TIB/NI W/ANGIOPLASTY UNI 05-11-10 RIGHT - REVSC OPN/PRQ TIB/NI W/ANGIOPLASTY UNI 01-09-14 - REVSC OPN/PRQ TIB/NI W/ATHRC/ANGIOP [facility] 07-03-11 right leg - REVSC OPN/PRQ TIB/NI W/ATHRC/ANGIOP SM [facility] 02-10-13 RIGHT ALLERGIES Allergen Reactions - Adhesive Rash Redness to skin - Lisinopril Cough - Penicillins Unknown childhood Current Outpatient Prescriptions: insulin lispro (HUMALOG) 100 unit/mL injection If blood glucose is 151-200 = 2 unit; 201-250 = 4 units; 251-300 = 6 units; 301-350 = 8 units; 351-400 = 10 units; >[address] insulin syringe-needle U-100 0.3 mL 31 gauge x 15/64 syrg for insulin injection three times daily as directed carvedilol (COREG) 25 mg tablet Take 0.5 tablets by mouth twice daily with meals. acetaminophen (TYLENOL) 325 mg tablet Take 2 tablets by mouth every 6 hours as needed for Pain or Fever. oxyCODONE IR (ROXICODONE) 5 mg immediate release tablet Take 1 tablet by mouth every 6 hours as needed for Pain for up to 7 days. warfarin (COUMADIN) 2.5 mg tablet Take 1 tablet by mouth daily as directed. colchicine (COLCRYS) 0.6 mg tablet Take 1 tablet by mouth once daily for 10 days. senna-docusate (SENNA-S) 8.6-50 mg per tablet Take 1 tablet by mouth twice daily as needed for Constipation. Hydrochlorothiazide 12.5 mg capsule Take one capsule by mouth once daily after Lasix prescription is completed after 5 days furosemide (LASIX) 20 mg tablet Take 1 tablet by mouth once daily for 5 days. TRULICITY 1.5 mg/0.5 mL pnij INJECT 1.5MG SUBCUTANEOUSLY ONCE EACH WEEK, DISCARD PEN AFTER insulin glargine (LANTUS U-100 INSULIN) 100 unit/mL injection Inject 30 Units subcutaneously daily at bedtime. Via Syringe atorvastatin (LIPITOR) 80 mg tablet Take 1 tablet by mouth once daily. gemfibrozil (LOPID) 600 mg tablet Take 0.5 tablets by mouth twice daily. clopidogrel (PLAVIX) 75 mg tablet Take 1 tablet by mouth once daily. Magnesium Oxide 500 mg cap Take 500 mg by mouth once daily. Insulin Syringe-Needle U-100 (BD INSULIN SYRINGE ULTRAFINE) 0.3 mL 31 gauge x 5/16 syrg 10 Units once daily. (Patient taking differently: Inject 30 Units subcutaneously once daily. ) nitroglycerin sublingual (NITROSTAT) 0.4 mg SL tablet Dissolve 1 tablet under the tongue as needed. DISSOLVE ON TONGUE FOR CHEST PAIN. IF NO PAIN RELIEF, CALL 911 blood sugar diagnostic (FREESTYLE LITE STRIPS) test strip TEST BLOOD SUGAR ONCE DAILY. DX: E11.65. Insulin: No (Patient taking differently: three times daily. ) Cholecalciferol, Vitamin D3, 1,000 unit cap Take 1 capsule by mouth once daily. No current facility-administered medications for this visit. Chief Complaints: Getting better every day Discharge Post Operative Course: Pain scale :Yes Chest wall currently well managed Appetite: improving Activity: Walking ad jesica around the house Elimination: constipation has been a problem stool softeners assisting, urination is normal Sleep: difficulty staying asleep Mood: normal and good Incisions/Wounds: healing Review of Systems: HEENT: Negative for fevers since discharge, chills, night sweats and blurry vision Cardiac: Denies significant problems, orthopnea, Arrhythmia and leg edema Respiratory: denies dyspnea, cough, orthopnea Musculoskeletal: No history of joint swelling, joint pain, or loss of range of motion. Neuro: Denies neurological complaints Physical Exam: BP 116/72 (BP Site: Left Arm, BP Position: Sitting, BP Cuff Size: Regular Adult) Pulse 74 Temp 36.8 ?C (98.3 ?F) (Oral) Wt 98.9 kg (218 lb) SpO2 99% BMI 33.15 kg/m? Appearance: well groomed, white male, in no acute distress Neck: No neck vein distention Cardiac: regular S1, S2, No murmur, No rub Lungs: Clear breath sounds bilaterally without wheeze or dullness Abdomen: soft, non tender, Normal bowel sounds Extremities: Edema: LLE 1+ Sternum: stable, no click Sternotomy site: healing, clean, dry and intact Wound: NA SV [place] sites: Location: Left LE, mid, healing and clean, dry and intact Procedures: N/A IMPRESSION AND PLAN: 1.S/P on 09/21/2017 SURGEON 1: ?Isabel Gray M.D. OPERATION: ?CABG x5, MANCERA-LAD, SVG-ramus, SVG-PDA-PLV, SVG- OM, PV isolation, left atrial appendage excision. Surgical Pathology/Microbiology: FINAL DIAGNOSIS: Left atrial appendage, excision - Mild interstitial fibrosis. Mild epicarditis Discharged on 09/27/2017 2. CAD - continue plavix, bb and statin - asa d/t on coumadin as well EC10/04/2017 Diagnosis:NORMAL SINUS RHYTHM NORMAL ECG ? Ventricular Rate : 71 ?BPM Atrial Rate : 71 ?BPM 3. Afib - pre op hx - currently NSR - INR today is 2.0. Continue same dose - Currently managed by PCP 4. Atelectasis/FVO - improving - weight down 10lb since discharge - encouraged to continue deep breathing exercises and walking CXR:10/04/2017 RESULT: Lines, tubes, and devices: ?None. ?Status post median sternotomy. ? Temporary epicardial pacer leads/wires incompletely evaluated. Lungs and pleura: ?No consolidation. No lung mass. ?Trace left pleural effusion. ?Resolved right pleural effusion. ?Essentially resolved bibasilar atelectasis. Cardiomediastinal silhouette: ?Stable to decreased cardiomediastinal silhouette, partly related to increased lung volume. Other: ?Degenerative changes of the spine 5. CKD III - baseline 1.35 - slightly elevated. - recheck in one week no that the diuretic is complete LABS:10/04/2017 Component Latest Ref Rng AND Units 09/27/2017 10/04/2017 WBC 3.70 - 11.00 k/uL 8.40 11.33 (H) RBC 4.20 - 6.00 m/uL 3.70 (L) 3.99 (L) Hemoglobin 13.0 - 17.0 g/dL 10.8 (L) 11.7 (L) Hematocrit 39.0 - 51.0 % 33.8 (L) 37.4 (L) Platelet Count 150 - 400 k/uL 238 418 (H) Component Latest Ref Rng AND Units 09/27/2017 10/04/2017 Glucose 74 - 99 mg/dL 127 (H) 180 (H) BUN 9 - 24 mg/dL 23 19 Creatinine 0.73 - 1.22 mg/dL 1.25 (H) 1.41 (H) Sodium 136 - 144 mmol/L 137 141 Potassium 3.7 - 5.1 mmol/L 3.9 4.8 Summary: Follow up with PCP in one week with repeat CBC and Cmp Follow up with Procurement Director in 4-6 weeks. Post op care and discharge orders reviewed with the patient- all questions were answered. Surgical sites healing without complication Discussed new medications, dosage, route of administration and side effects Reviewed walking program at home Reviewed diet guidelines for recovery from surgery Return to the clinic prn with signs or symptoms of infection, fevers, SOB, or pleural effusion SBE prophylaxis reviewed Reviewed daibetic diet and insulin regimen Discussed wound care Alan Borrero APRN.[employer] Referring Provider: ISABEL GRAY [[id number]] Allergies As of Date: 10/04/2017 Noted Allergy Reaction ADHESIVE 05/12/2008 2 - Rash Comments: Redness to skin LISINOPRIL 11/17/2010 3 - Cough PENICILLINS 06/22/2005 16 - Unknown Comments: childhood Date Reviewed: 10/04/2017 Reviewed by: Socorro Alvarez Ma - Fully Assessed Reason for Visit: Follow Up [171] Primary Visit Diagnosis:S/P CABG (coronary artery bypass graft) [Z95.1] Other Visit Diagnoses:Atrial fibrillation, unspecified type ([facility]) [I48.91] Atelectasis [J98.11] Diabetes mellitus type 2 with peripheral artery disease ([facility]) [E11.51] Stage 3 chronic kidney disease ([facility]) [N18.3] Order(s):clindamycin (CLEOCIN) 300 mg capsuleTake 1 capsule by mouth every 8 hours.Disp: Rfl: Prescriptions as of 10/04/2017 Sig: INSULIN SYRINGE-NEEDLE U-100 * for insulin injection three t* CARVEDILOL 25 MG TABLET Take 0.5 tablets by mouth twi* ACETAMINOPHEN 325 MG TABLET Take 2 tablets by mouth every* OXYCODONE 5 MG TABLET Take 1 tablet by mouth every * WARFARIN 2.5 MG TABLET Take 1 tablet by mouth daily * COLCHICINE 0.6 MG TABLET Take 1 tablet by mouth once d* SENNOSIDES 8.6 MG-DOCUSATE SO* Take 1 tablet by mouth twice * HYDROCHLOROTHIAZIDE 12.5 MG C* Take one capsule by mouth onc* TRULICITY 1.5 MG/0.5 ML SUBCU* INJECT 1.5MG SUBCUTANEOUSLY O* INSULIN GLARGINE (U-100) 100 * Inject 30 Units subcutaneousl* ATORVASTATIN 80 MG TABLET Take 1 tablet by mouth once d* GEMFIBROZIL 600 MG TABLET Take 0.5 tablets by mouth twi* CLOPIDOGREL 75 MG TABLET Take 1 tablet by mouth once d* MAGNESIUM OXIDE 500 MG CAPSULE Take 500 mg by mouth once malgorzata* INSULIN SYRINGE-NEEDLE U-100 * 10 Units once daily. Patient taking differently: Inject 30 Units subcutaneousl* NITROGLYCERIN 0.4 MG SUBLINGU* Dissolve 1 tablet under the t* BLOOD SUGAR DIAGNOSTIC STRIPS TEST BLOOD SUGAR ONCE DAILY. * Patient taking differently: three times daily. CHOLECALCIFEROL (VITAMIN D3) * Take 1 capsule by mouth once * CLINDAMYCIN HCL 300 MG CAPSULE Take 1 capsule by mouth every* INSULIN LISPRO (U-100) 100 UN* If blood glucose is 151- 200 =* Patient not taking: Reported on 10/04/2017 Problem List As Of Date 10/04/2017 Noted Resolved Raynaud's syndrome [I73.00] Primary hypertension [I10] Priority: C More... Hyperlipidemia [E78.5] Priority: C More... PERIPH VASCULAR DIS NOS [I73.9] INVALID FOR* Chronic low back pain [M54.5, G89.29] INVALID FOR* Priority: C More... ASCVD [I25.10] INVALID FOR* Anxiety state [F41.1] INVALID FOR* Skin lesion [L98.9] INVALID FOR* Peripheral arterial disease [I73.9] INVALID FOR* Priority: C More... Parotid discomfort [K11.9] INVALID FOR* Diabetes mellitus (HCC) [E11.9] INVALID FOR*08/28/2013 Anxiety [F41.9] INVALID FOR* GERD (gastroesophageal reflux disease) [K21.9] INVALID FOR* Low testosterone [E34.9] INVALID FOR* Diabetes mellitus type 2 with peripheral artery*INVALID FOR* Priority: C More... SUMMARY INVALID FOR*02/14/2015 Priority: Mild More... 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] INVALID FOR*09/27/2017 Priority: B More... CAD (coronary artery disease) [I25.10] INVALID FOR* Priority: A More... Unstable angina (HCC) [I20.0] INVALID FOR*09/27/2017 Priority: C More... 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 Stage 3 chronic kidney disease (HCC) [N18.3] INVALID FOR* Priority: C More... More... Leukocytosis [D72.829] INVALID FOR*09/27/2017 Priority: I More... Discharge planning issues [Z02.9] INVALID FOR* Priority: M More... On mechanically assisted ventilation ([facility]) [Z99*INVALID FOR*09/22/2017 Priority: B More... Pain, postoperative, acute [G89.18] INVALID FOR* Priority: C More... A-fib ([facility]) [I48.91] INVALID FOR* Priority: A More... Atelectasis [J98.11] INVALID FOR* Priority: B More... Summary [Z91.89] INVALID FOR* Priority: Very Severe More... Anticoagulation management encounter [Z51.81, Z*INVALID FOR* Priority: C More... Current use of intermediate manager anticoagulation [Z79.0*INVALID FOR* Prescriptions ordered this encounter Disp Refills Start End CLINDAMYCIN HCL 300 MG CAPSULE 10/01/2017 Class: Med Update Route: ORAL Sig: Take 1 capsule by mouth every 8 hours. Medications Discontinued During This Encounter furosemide (LASIX) 20 mg tablet 5 ta* 0 09/27/2017 10/04/2017 Route: ORAL Sig: Take 1 tablet by mouth once daily for 5 days. Disc: Course of therapy completed Encounter Status:Closed by ALAN BORRERO CNP on 10/04/17 ALBUMIN/CREAT RATIO Collected: 10/04/2017 Status: F Source: [place] 9:53 AM [facility] REPOSITORY TYPE CODE TESTS RESULT OUT OF REFERENCE UNITS RANGE LAB UCRR 20-300 mg/dL Creatinine,Ur 181.9 ine,Ran LAB UALBR 0.0-23.0 mg/L High Albumin Urine 27.7 Random LAB UALBCR 0-30 mg/g Albumin/Creat 15 Ratio Result Comment: 30 to 300 mg/g indicates an increased risk for diabetic nephropathy. Greater than 300 mg/g is consistent with clinical nephropathy. (Am J Kidney Disease 1994, 25:107) Performed By: #### UACR #### [facility] [address], [place] [address] CNOV Observed: 10/04/2017 Status: COMPLETED Source: [place] 9:30 AM [facility] REPOSITORY Office Visit ([facility]) NOMAN STONE ([id number]) 1955 M Date Time Provider Department 10/04/17 9:30 AM [facility] MAIN [facility] During your visit today, we recorded the following information about you: Mian Wilburn III MD 10/04/2017 7:07 PM Signed Chandrakant, Hemoglobin A1c is 8.2 which is better than 1 year ago though not as good as 6 months ago. We will discuss in more detail at the upcoming appointment. Mian Wilburn III, MD, FAAFP Referring Provider: ISABEL GRAY [[id number]] Allergies As of Date: 10/04/2017 Noted Allergy Reaction ADHESIVE 05/12/2008 2 - Rash Comments: Redness to skin LISINOPRIL 11/17/2010 3 - Cough PENICILLINS 06/22/2005 16 - Unknown Comments: childhood Date Reviewed: 10/04/2017 Reviewed by: Socorro Alvarez Ma - Fully Assessed Visit Diagnoses:Essential hypertension [I10] Medication management [Z79.899] Need for hepatitis C screening test [Z11.59] Screening PSA (prostate specific antigen) [Z12.5] SOB (shortness of breath) [R06.02] Follow-up examination following surgery [Z09] Paroxysmal atrial fibrillation (HCC) [I48.0] Order(s):LIPID PANEL BASIC [SQLIPB] Order #: [id number] ALT/SGPT [SQALT] Order #: [id number] CK CREATINE KINASE [SQCK] Order #: [id number] ALBUMIN/CREAT RATIO RND UR [SQUACR] Order #: [id number]. #:[id number] HGB A1C [YSDYF2K] Order #: [id number]. #:[id number] HEP C AB IA W/CONF SCRN [[id number]] Order #: [id number]. #:[id number] PSA/PROSTSPECAG DIAG [SQPSA] Order #: [id number]. #:[id number] CBC [SQCBC] Order #: [id number]. #:[id number] COMP METABOLIC PANEL [SQCMP] Order #: [id number]. #:[id number] PROTHROMBIN TIME/PT [SQPT] Order #: [id number]. #:[id number] Prescriptions as of 10/04/2017 Sig: INSULIN LISPRO (U-100) 100 UN* If blood glucose is 151- 200 =* Patient not taking: Reported on 10/04/2017 INSULIN SYRINGE-NEEDLE U-100 * for insulin injection three t* CARVEDILOL 25 MG TABLET Take 0.5 tablets by mouth twi* ACETAMINOPHEN 325 MG TABLET Take 2 tablets by mouth every* OXYCODONE 5 MG TABLET Take 1 tablet by mouth every * WARFARIN 2.5 MG TABLET Take 1 tablet by mouth daily * COLCHICINE 0.6 MG TABLET Take 1 tablet by mouth once d* SENNOSIDES 8.6 MG-DOCUSATE SO* Take 1 tablet by mouth twice * HYDROCHLOROTHIAZIDE 12.5 MG C* Take one capsule by mouth onc* TRULICITY 1.5 MG/0.5 ML SUBCU* INJECT 1.5MG SUBCUTANEOUSLY O* INSULIN GLARGINE (U-100) 100 * Inject 30 Units subcutaneousl* ATORVASTATIN 80 MG TABLET Take 1 tablet by mouth once d* GEMFIBROZIL 600 MG TABLET Take 0.5 tablets by mouth twi* CLOPIDOGREL 75 MG TABLET Take 1 tablet by mouth once d* MAGNESIUM OXIDE 500 MG CAPSULE Take 500 mg by mouth once malgorzata* INSULIN SYRINGE-NEEDLE U-100 * 10 Units once daily. Patient taking differently: Inject 30 Units subcutaneousl* NITROGLYCERIN 0.4 MG SUBLINGU* Dissolve 1 tablet under the t* BLOOD SUGAR DIAGNOSTIC STRIPS TEST BLOOD SUGAR ONCE DAILY. * Patient taking differently: three times daily. CHOLECALCIFEROL (VITAMIN D3) * Take 1 capsule by mouth once * Problem List As Of Date 10/04/2017 Noted Resolved Raynaud's syndrome [I73.00] Primary hypertension [I10] Priority: C More... Hyperlipidemia [E78.5] Priority: C More... PERIPH VASCULAR DIS NOS [I73.9] INVALID FOR* Chronic low back pain [M54.5, G89.29] INVALID FOR* Priority: C More... ASCVD [I25.10] INVALID FOR* Anxiety state [F41.1] INVALID FOR* Skin lesion [L98.9] INVALID FOR* Peripheral arterial disease [I73.9] INVALID FOR* Priority: C More... Parotid discomfort [K11.9] INVALID FOR* Diabetes mellitus (HCC) [E11.9] INVALID FOR*08/28/2013 Anxiety [F41.9] INVALID FOR* GERD (gastroesophageal reflux disease) [K21.9] INVALID FOR* Low testosterone [E34.9] INVALID FOR* Diabetes mellitus type 2 with peripheral artery*INVALID FOR* Priority: C More... SUMMARY INVALID FOR*02/14/2015 Priority: Mild More... 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] INVALID FOR*09/27/2017 Priority: B More... CAD (coronary artery disease) [I25.10] INVALID FOR* Priority: A More... Unstable angina (HCC) [I20.0] INVALID FOR*09/27/2017 Priority: C More... 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 Stage 3 chronic kidney disease (HCC) [N18.3] INVALID FOR* Priority: C More... More... Leukocytosis [D72.829] INVALID FOR*09/27/2017 Priority: I More... Discharge planning issues [Z02.9] INVALID FOR* Priority: M More... On mechanically assisted ventilation (HCC) [Z99*INVALID FOR*09/22/2017 Priority: B More... Pain, postoperative, acute [G89.18] INVALID FOR* Priority: C More... A-fib (HCC) [I48.91] INVALID FOR* Priority: A More... Atelectasis [J98.11] INVALID FOR* Priority: B More... Summary [Z91.89] INVALID FOR* Priority: Very Severe More... Anticoagulation management encounter [Z51.81, Z*INVALID FOR* Priority: C More... Current use of intermediate manager anticoagulation [Z79.0*INVALID FOR* Encounter Status:Closed by MIAN WILBURN III, MD on 10/05/17 CBC Collected: 10/04/2017 Status: F Source: [place] 9:26 AM [facility] REPOSITORY TYPE CODE TESTS RESULT OUT OF REFERENCE UNITS RANGE LAB WBC 3.70-11.00 k/uL WBC High 11.33 LAB RBC 4.20-6.00 m/uL Low RBC 3.99 LAB HGB 13.0-17.0 g/dL Low Hemoglobin 11.7 LAB HCT 39.0-51.0 % Low Hematocrit 37.4 LAB MCV 80.0-100.0 fL MCV 93.7 LAB MCH 26.0-34.0 pG MCH 29.3 LAB MCHC 30.5-36.0 g/dL MCHC 31.3 LAB RDWCV 11.5-15.0 % RDW-CV 14.0 LAB PLTCT 150-400 k/uL Platelet High Count 418 LAB MPV 9.0-12.7 fL MPV 9.9 LAB ABSNUC <0.01 k/uL Absolute nRBC <0.01 Performed By: #### CBC, CMP #### [facility] [address], [place] [address] COMP METABOLIC PANEL Collected: 10/04/2017 Status: F Source: [place] 9:26 AM [facility] REPOSITORY TYPE CODE TESTS RESULT OUT OF REFERENCE UNITS RANGE LAB TP 6.3-8.0 g/dL Protein, Total 7.1 LAB ALB 3.9-4.9 g/dL Low Albumin 3.6 LAB CA 8.5-10.2 mg/dL Calcium, Total 9.4 LAB TBIL 0.2-1.3 mg/dL Bilirubin, Total 0.4 LAB ALKP 36-108 U/L Alkaline Phosphatase 65 LAB AST 14-40 U/L AST 14 LAB GLU 74-99 mg/dL Glucose High 180 Result Comment: The [place] [employer] (ADA) provides guidance for cutoff values for fasting glucose and random glucose. The ADA defines fasting as no caloric intake for at least 8 hours. Fas ting plasma glucose results between 100 to 125 mg/dL indicate increased risk for diabetes (prediabetes). Fasting plasma glucose results greater than or equal to 126 mg/dL meet the criteria for diagnosis of diabetes. In the absence of unequivocal hyperglycemia, results should be confirmed by repeat testing. In a patient with classic symptoms of hyperglycemia or hyperglycemic crisis, random plasma glucose results greater than or equal to 200 mg/dL meet the criteria for diagnosis of diabetes. Reference: Standards of Medical Care in Diabetes 2016, [place] [employer]. Diabetes Care. 2016.39(Suppl 1). LAB BUN 9-24 mg/dL BUN 19 LAB CRET 0.73-1.22 mg/dL Creatinine High 1.41 LAB NA 136-144 mmol/L Sodium 141 LAB K 3.7-5.1 mmol/L Potassium 4.8 LAB CL 97-105 mmol/L Chloride 103 LAB CO2 22-30 mmol/L CO2 27 LAB AGAP 9-18 mmol/L Anion Gap 11 LAB ALT 10-54 U/L ALT 16 LAB GFRAA eGFR- Amer. >60 LAB GFRNAA . eGFR-All Other Races 51 Result Comment: eGFR (Estimated GFR) Units of measure: mL/min/1.73 meters squared eGFR is derived from the reexpressed MDRD Study equation using the following parameters: serum creatinine, age, gender and race. The creatinine assay has been calibrated to be traceable to IDMS. An eGFR <60 mL/min/1.73m2 for >3 months is consistent with chronic kidney disease. Refer to KDOQI guidelines for clinical interpretation. In patients with unstable renal function, e.g. those with acute kidney injury, the eGFR may not accurately reflect actual GFR. Performed By: #### CBC, CMP #### [facility] [address] [place], [place] [address] PROTIME Collected: 10/04/2017 Status: F Source: [place] 9:25 AM [facility] REPOSITORY TYPE CODE TESTS RESULT OUT OF RANGE REFERENCE UNITS LAB PSEC 9.7-13.0 sec High PT Sec 19.4 LAB INR 0.9-1.3 High PT INR 2.0 Result Comment: Vitamin K Antagonist (VKA) Therapeutic Range: INR 2 to 3 (Target INR of 2.5) Note: For patients treated with VKA drugs, such as warfarin, the [place] [employer] 2012 Guideline recommends a therapeutic INR range of 2 to 3 (target INR of 2.5). This recommendation includes high-risk patients with antiphospholipid syndrome with previous arterial or venous thromboembolism, current-generation mechanical or bioprosthetic aortic heart valve replacement. Note: Patients with mechanical aortic valve replacement and additional risk factors for thromboembolic events (atrial fibrillation, previous thromboembolism, LV dysfunction, hypercoagulable conditions) or an older generation mechanical AVR (i.e., ball in-Cage) or any mechanical MVR should have a INR therapeutic range of 2.5 to 3.5 (target INR of 3). Bety BAKER, et al. Chest 2012, 141:7S-47S Joy RA, et al. [facility] 2017, 70: 252-289 Performed By: #### PT, PSA, AHCV1B #### [facility] [address] [place] [address] PSA, DIAGNOSTIC Collected: 10/04/2017 Status: F Source: [place] 9:25 AM [facility] REPOSITORY TYPE CODE TESTS RESULT OUT OF REFERENCE UNITS RANGE LAB PSA 0.00-2.59 ng/mL PSA, Diagnostic 1.64 Result Comment: Total PSA test methodology used is the Electrochemiluminescence Immunoassay. Performed By: #### PT, PSA, AHCV1B #### [facility] [address] [place] [address] HEP C AB IA W/CONF Collected: 10/04/2017 Status: F Source: [place] 9:25 AM [facility] REPOSITORY TYPE CODE TESTS RESULT OUT OF REFERENCE UNITS RANGE LAB AHCV Negative Hepatitis C Ab Negative IA Performed By: #### PT, PSA, AHCV1B #### [facility] [address] [place], [place] [address] HEMOGLOBIN A1C Collected: 10/04/2017 Status: F Source: [place] 9:25 AM [facility] REPOSITORY TYPE CODE TESTS RESULT OUT OF REFERENCE UNITS RANGE LAB HGBA1C 4.3-5.6 % High Hemoglobin A1c 8.2 LAB HBA0 mg/dL Est. Average Glucose 189 Result Comment: eAG: (Estimated average glucose) is a calculated value from HgbA1c and is parts sales representative of the average blood glucose level in the last 2-3 month period. Performed By: #### HBA1C #### [facility] [address] [place], [place] [address] PROGRESS Observed: 10/04/2017 Status: COMPLETED Source: [place] 9:01 AM [facility] REPOSITORY HNO ID: [id number] Author: Juliette Yang Service: (none) Author Type: (none) Type: Progress Notes Filed: 10/04/2017 9:01 AM Note Text: Radiology Service Progress Note PATIENT NAME: Noman Stone DATE OF SERVICE: October 04, 2017 TIME: 9:01 AM PATIENT IDENTITY VERIFICATION COMPLETED USING TWO (2) METHODS: Patient confirmed name verbally and Date of . PATIENT GENDER DATA: Male PATIENT RELEVANT IMPLANT DATA REVIEWED: Not Applicable RADIOLOGY DEPARTMENT: General X-ray: Exam(s) Completed: Chest X-Ray PERIPHERAL IV DATA: Not applicable SIGNED BY: Juliette Yang October 04, 2017 9:01 AM XR CHEST 2V FRONTAL/LAT Observed: 10/04/2017 Status: F Source: [place] 9:01 AM [facility] REPOSITORY * * *Final Report* * * DATE OF EXAM: Oct 04 2017 9:01AM JIX [id number] - XR CHEST 2V FRONTAL/LAT / PROCEDURE REASON: Encounter for follow-up examination after completed treatment for conditions oth * * * * Physician Interpretation * * * * EXAMINATION: CHEST RADIOGRAPH (2 VIEW FRONTAL and LATERAL) Clinical History: Encounter for follow-up examination after completed treatment for conditions other than malignant neoplasm MQ: [id number] Comparison: 09/25/2017 RESULT: Lines, tubes, and devices: None. Status post median sternotomy. Temporary epicardial pacer leads/wires incompletely evaluated. Lungs and pleura: No consolidation. No lung mass. Trace left pleural effusion. Resolved right pleural effusion. Essentially resolved bibasilar atelectasis. Cardiomediastinal silhouette: Stable to decreased cardiomediastinal silhouette, partly related to increased lung volume. Other: Degenerative changes of the spine IMPRESSION: Improving findings, see body of the report 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: MARCO Transcribe Date/Time: Oct 04 2017 2:08P Dictated by : LUL HERRERA MD This examination was interpreted and the report reviewed and electronically signed by: LUL HERRERA MD on Oct 04 2017 2:10PM EST [id number] ECG COMPLETE W Observed: 10/04/2017 Status: F Source: MARIBEL INTERPRETATION 8:55 AM [facility] REPOSITORY NAME : NOMAN STONE PID : [id number] : 1955 Gender : Male Race : ORD : [id number] Procedure Date : Oct 04 2017 08:55:43 Edit Date : Oct 05 2017 09:03:59 Diagnosis:NORMAL SINUS RHYTHM NORMAL ECG Confirmed by MUSA ALVAREZ MD ([id number]) on 10/05/2017 9:03:56 AM Ventricular Rate : 71 BPM Atrial Rate : 71 BPM P-R Interval : 146 ms QRS Duration : 90 ms Q-T Interval : 406 ms QTC Calculation(Bezet) : 441 ms P [place] : 26 degrees R [place] : 30 degrees T [place] : 42 degrees Test Reason : Location : 314 : J14 Overread By : MUSA ALVAREZ MD Edited By : MUSA ALVAREZ MD Referred By : ISABEL GRAY Acquired by : HECTOR JIMENES PROGRESS Observed: 10/03/2017 Status: COMPLETED Source: [place] 5:43 PM [facility] REPOSITORY HNO ID: [id number] Author: Alan Borrero Service: (none) Author Type: Nurse Practitioner Type: Progress Notes Filed: 10/04/2017 5:24 PM Note Text: [facility] CTS Post op Follow up Noman Stone is a 61 year old male who presents who is here for post operative follow up HPI: S/P on 09/21/2017 SURGEON 1: ?Isabel Gray M.D. OPERATION: ?CABG x5, AMNCERA-LAD, SVG-ramus, SVG-PDA-PLV, SVG- OM, PV isolation, left atrial appendage excision. Surgical Pathology/Microbiology: FINAL DIAGNOSIS: Left atrial appendage, excision - Mild interstitial fibrosis. Mild epicarditis Discharged on 09/27/2017 PAST MEDICAL HISTORY Diagnosis Date - Acute renal failure (HCC) - CAD (coronary artery disease) - Diabetes mellitus ([facility]) 11/17/2010 - Essential hypertension, benign - GERD (gastroesophageal reflux disease) 11/17/2010 - H/O percutaneous transluminal coronary angioplasty - Hyperlipidemia - Low testosterone 12/12/2011 - Other and unspecified hyperlipidemia - PAD (peripheral artery disease) ([facility]) - Paroxysmal atrial fibrillation ([facility]) - Raynaud's syndrome - Shift work sleep disorder 05/03/2015 - Type 2 diabetes mellitus with stage 3 chronic kidney disease, with long-term current use of insulin ([facility]) 12/09/2015 - Type II or unspecified type diabetes mellitus with peripheral circulatory disorders, uncontrolled(250.72) 08/28/2013 PAST SURGICAL HISTORY Procedure Laterality Date - COLONOSCOP W/ OR W/O [facility] SPEC 04-12-10 - COLONOSCOPY W/BX 07-07-15 - EGD W/O [facility] SPECIMEN W/BX 07-07-15 - HEART CATHETERIZATION 2008 with stents - PAST SURGICAL HISTORY OF 10/03/10 bilat lower extremity arteriogram with angioplasty - PAST SURGICAL HISTORY OF 03/09/10 Bilat lower ext arteriogram left pop and sup fem artery angioplasty - PAST SURGICAL HISTORY OF 09/14/05 bilat arteriogram with left pop manometry - PLACE CATH SUBSUBSELECT ART,ABD/PEL 09/14/05 - REM LESION NEC,HAND,SCAL<0.5CM 01/29/10 Exc. right infra-auricular lesion - REM LESION NEC,HAND,SCAL<0.5CM 12/10/13 EXc. right foot lesion - REPAIR ING HERNIA,5+Y/O,REDUCIBL 1963 Hernia repair, inguinal - REVSC OPN/PRG FEM/POP W/ANGIOPLASTY UNI 05-11-10 RIGHT POP - REVSC OPN/PRG FEM/POP W/ANGIOPLASTY UNI 02/17/08 right fem with angioplasty,catheter placed right pop,right sfa,LLE ateriogram - REVSC OPN/PRG FEM/POP W/ANGIOPLASTY UNI 11/26/07 L fem angio with stenting and smart stent placed - REVSC OPN/PRG FEM/POP W/ANGIOPLASTY UNI 07-17-11 left leg - REVSC OPN/PRQ FEM/POP W/ATHRC/ANGIOP VSL 05-11-10 RIGHT SFA - REVSC OPN/PRQ TIB/NI W/ANGIOPLASTY UNI 05-11-10 RIGHT - REVSC OPN/PRQ TIB/NI W/ANGIOPLASTY UNI 01-09-14 - REVSC OPN/PRQ TIB/NI W/ATHRC/ANGIOP SM VSL 07-03-11 right leg - REVSC OPN/PRQ TIB/NI W/ATHRC/ANGIOP SM VSL 02-10-13 RIGHT ALLERGIES Allergen Reactions - Adhesive Rash Redness to skin - Lisinopril Cough - Penicillins Unknown childhood Current Outpatient Prescriptions: insulin lispro (HUMALOG) 100 unit/mL injection If blood glucose is 151-200 = 2 unit; 201-250 = 4 units; 251-300 = 6 units; 301-350 = 8 units; 351-400 = 10 units; >400 Call insulin syringe-needle U-100 0.3 mL 31 gauge x 15/64 syrg for insulin injection three times daily as directed carvedilol (COREG) 25 mg tablet Take 0.5 tablets by mouth twice daily with meals. acetaminophen (TYLENOL) 325 mg tablet Take 2 tablets by mouth every 6 hours as needed for Pain or Fever. oxyCODONE IR (ROXICODONE) 5 mg immediate release tablet Take 1 tablet by mouth every 6 hours as needed for Pain for up to 7 days. warfarin (COUMADIN) 2.5 mg tablet Take 1 tablet by mouth daily as directed. colchicine (COLCRYS) 0.6 mg tablet Take 1 tablet by mouth once daily for 10 days. senna-docusate (SENNA-S) 8.6-50 mg per tablet Take 1 tablet by mouth twice daily as needed for Constipation. Hydrochlorothiazide 12.5 mg capsule Take one capsule by mouth once daily after Lasix prescription is completed after 5 days furosemide (LASIX) 20 mg tablet Take 1 tablet by mouth once daily for 5 days. TRULICITY 1.5 mg/0.5 mL pnij INJECT 1.5MG SUBCUTANEOUSLY ONCE EACH WEEK, DISCARD PEN AFTER insulin glargine (LANTUS U-100 INSULIN) 100 unit/mL injection Inject 30 Units subcutaneously daily at bedtime. Via Syringe atorvastatin (LIPITOR) 80 mg tablet Take 1 tablet by mouth once daily. gemfibrozil (LOPID) 600 mg tablet Take 0.5 tablets by mouth twice daily. clopidogrel (PLAVIX) 75 mg tablet Take 1 tablet by mouth once daily. Magnesium Oxide 500 mg cap Take 500 mg by mouth once daily. Insulin Syringe-Needle U-100 (BD INSULIN SYRINGE ULTRAFINE) 0.3 mL 31 gauge x 5/16 syrg 10 Units once daily. (Patient taking differently: Inject 30 Units subcutaneously once daily. ) nitroglycerin sublingual (NITROSTAT) 0.4 mg SL tablet Dissolve 1 tablet under the tongue as needed. DISSOLVE ON TONGUE FOR CHEST PAIN. IF NO PAIN RELIEF, CALL 911 blood sugar diagnostic (FREESTYLE LITE STRIPS) test strip TEST BLOOD SUGAR ONCE DAILY. DX: E11.65. Insulin: No (Patient taking differently: three times daily. ) Cholecalciferol, Vitamin D3, 1,000 unit cap Take 1 capsule by mouth once daily. No current facility-administered medications for this visit. Chief Complaints: Getting better every day Discharge Post Operative Course: Pain scale :Yes Chest wall currently well managed Appetite: improving Activity: Walking ad jesica around the house Elimination: constipation has been a problem stool softeners assisting, urination is normal Sleep: difficulty staying asleep Mood: normal and good Incisions/Wounds: healing Review of Systems: HEENT: Negative for fevers since discharge, chills, night sweats and blurry vision Cardiac: Denies significant problems, orthopnea, Arrhythmia and leg edema Respiratory: denies dyspnea, cough, orthopnea Musculoskeletal: No history of joint swelling, joint pain, or loss of range of motion. Neuro: Denies neurological complaints Physical Exam: BP 116/72 (BP Site: Left Arm, BP Position: Sitting, BP Cuff Size: Regular Adult) Pulse 74 Temp 36.8 ?C (98.3 ?F) (Oral) Wt 98.9 kg (218 lb) SpO2 99% BMI 33.15 kg/m? Appearance: well groomed, white male, in no acute distress Neck: No neck vein distention Cardiac: regular S1, S2, No murmur, No rub Lungs: Clear breath sounds bilaterally without wheeze or dullness Abdomen: soft, non tender, Normal bowel sounds Extremities: Edema: LLE 1+ Sternum: stable, no click Sternotomy site: healing, clean, dry and intact Wound: NA SV [place] sites: Location: Left LE, mid, healing and clean, dry and intact Procedures: N/A IMPRESSION AND PLAN: 1.S/P on 09/21/2017 SURGEON 1: ?Isabel Gray M.D. OPERATION: ?CABG x5, MANCERA-LAD, SVG-ramus, SVG-PDA-PLV, SVG- OM, PV isolation, left atrial appendage excision. Surgical Pathology/Microbiology: FINAL DIAGNOSIS: Left atrial appendage, excision - Mild interstitial fibrosis. Mild epicarditis Discharged on 09/27/2017 2. CAD - continue plavix, bb and statin - asa d/t on coumadin as well EC10/04/2017 Diagnosis:NORMAL SINUS RHYTHM NORMAL ECG ? Ventricular Rate : 71 ?BPM Atrial Rate : 71 ?BPM 3. Afib - pre op hx - currently NSR - INR today is 2.0. Continue same dose - Currently managed by PCP 4. Atelectasis/FVO - improving - weight down 10lb since discharge - encouraged to continue deep breathing exercises and walking CXR:10/04/2017 RESULT: Lines, tubes, and devices: ?None. ?Status post median sternotomy. ? Temporary epicardial pacer leads/wires incompletely evaluated. Lungs and pleura: ?No consolidation. No lung mass. ?Trace left pleural effusion. ?Resolved right pleural effusion. ?Essentially resolved bibasilar atelectasis. Cardiomediastinal silhouette: ?Stable to decreased cardiomediastinal silhouette, partly related to increased lung volume. Other: ?Degenerative changes of the spine 5. CKD III - baseline 1.35 - slightly elevated. - recheck in one week no that the diuretic is complete LABS:10/04/2017 Component Latest Ref Rng AND Units 09/27/2017 10/04/2017 WBC 3.70 - 11.00 k/uL 8.40 11.33 (H) RBC 4.20 - 6.00 m/uL 3.70 (L) 3.99 (L) Hemoglobin 13.0 - 17.0 g/dL 10.8 (L) 11.7 (L) Hematocrit 39.0 - 51.0 % 33.8 (L) 37.4 (L) Platelet Count 150 - 400 k/uL 238 418 (H) Component Latest Ref Rng AND Units 09/27/2017 10/04/2017 Glucose 74 - 99 mg/dL 127 (H) 180 (H) BUN 9 - 24 mg/dL 23 19 Creatinine 0.73 - 1.22 mg/dL 1.25 (H) 1.41 (H) Sodium 136 - 144 mmol/L 137 141 Potassium 3.7 - 5.1 mmol/L 3.9 4.8 Summary: Follow up with PCP in one week with repeat CBC and Cmp Follow up with Procurement Director in 4-6 weeks. Post op care and discharge orders reviewed with the patient- all questions were answered. Surgical sites healing without complication Discussed new medications, dosage, route of administration and side effects Reviewed walking program at home Reviewed diet guidelines for recovery from surgery Return to the clinic prn with signs or symptoms of infection, fevers, SOB, or pleural effusion SBE prophylaxis reviewed Reviewed daibetic diet and insulin regimen Discussed wound care Alan Borrero APRN.CNP PROGRESS Observed: 10/03/2017 Status: COMPLETED Source: [place] 12:14 PM [facility] REPOSITORY HNO ID: [id number] Author: Susnane Velasquez MA Service: (none) Author Type: Manager Quality Systems Type: Progress Notes Filed: 10/03/2017 12:15 PM Note Text: Per providers written response: No change , stay on same dose , Recheck 10/10/17 which is scheduled. Susanne Velasquez MA PROGRESS Observed: 10/03/2017 Status: COMPLETED Source: [place] 11:14 AM [facility] REPOSITORY HNO ID: [id number] Author: Herminia Browning RN Service: (none) Author Type: (none) Type: Progress Notes Filed: 10/03/2017 11:15 AM Note Text: Patient had INR completed at [facility] Patient's INR is 2.5 Patient is currently taking 2.5mg daily Patient was DCed on Coumadin last . Patient has had no medication and no change in diet. Advised patient to continue on same dose and they would only be contacted with different instructions after provider review. Written instructions were given to patient and patient verbalized understanding. Presently, patient has been scheduled for 10/10/17 for INR follow up. VENOUS DUPLEX LOWER Observed: 10/02/2017 Status: F Source: [place] EXTREMITY 5:18 PM [facility] REPOSITORY [facility] Cardiovascular Services [address] [place] [address] Venous Duplex US, Unilateral 10/01/17 1414 MR#: [id number] Acct: [id number] Name: NOMAN STONE Rep #: [id number] : 1955 61 From: Keagan Moore MD Attending Dr: Emilee Noe MD Status: REG CLI Ordering Dr: Emilee Noe MD Date: 10/01/17 Location: CVS Sex: M C Admitted: Reason For Study: SWELLING Procedure LEFT Exam performed in department. GSV is normal. CFV is compressible, spontaneous, phasic, competent, and demonstrates normal augmentation. FV is compressible, spontaneous, phasic, competent and demonstrates normal augmentation. POP V is compressible, spontaneous, phasic, competent and demonstrates normal augmentation. T/P Trunk is compressible. PTV is compressible. LT PerV is compressible. Interpretation Summary Deep veins of the left lower extremity are patent and compressible segmentally. There is no evidence of left lower extremity deep vein thrombosis. Valvular competence appears intact within the proximal deep venous system on the left . The left greater saphenous vein appears patent and compressible segmentally. Ordering Physician: Emilee Noe Referring Physician: MIAN WILBURN Performed By: Shruthi Quick, WILIAM, RVT 10/02/17 1718 Date Keagan Moore MD CC: Emilee Noe MD; Mian Wilburn III, MD Date Dictated: 10/01/17 1414 Date Transcribed: 10/02/17 1718 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: Signed EMERGENCY DEPARTMENT Observed: 10/01/2017 Status: F Source: [place] SUMMARY 3:47 AM [facility] REPOSITORY [facility] Medical Records Department [address] [place] [address] Emergency Department Summary 09/30/17 2259 MR#: [id number] Acct: [id number] Name: NOMAN STONE Rep #: [id number] : 1955 61 From: Emilee Noe MD PCP: Mian Wilburn III, MD Status: REG ER - ER Visit Summary Date of Service: 09/30/17 Chief Complaint: Left lower extremity redness History of Present Illness: The patient is a 61 M presenting with left lower extremity redness. Patient noticed this today. He had a recent history of CABG at [facility]. He had the surgery on September 21. He was discharged on September 27. He denies any chest pain or shortness of breath, other than with coughing. He was concerned tonight due to redness to the anterior lower left lower extremity. He complains of mild swelling in the left leg. He is on Coumadin, he states his last INR was 2.2. He denies blood in his stool. Denies other complaints. Physical Examination: Vitals are stable. Patient is afebrile. Alert no acute distress. HEENT exam is unremarkable. Lungs are clear and equal bilaterally. Incision clean dry and intact Heart is regular rate and rhythm. Abdomen is soft nontender nondistended. Extremities incision clean dry intact, erythema to the anterior left lower extremity which is not circumferential, mild symmetric edema Skin is warm and dry. No focal neurologic deficit. Remainder of exam is unremarkable. Emergency Department Course and Treatment: CBC shows normal white count, hemoglobin 11.4. Chemistries show sodium 135, glucose 150, BUN 21, creatinine 1.55. INR 2.0. Unable to obtain an ultrasound at this time of day. D-dimer was drawn which was 3.61. Due to elevated d-dimer, CTA chest was obtained which shows no acute process. Patient was given IV fluids. He was given clindamycin for cellulitis. He is given an order form for an ultrasound of his lower extremity to be performed tomorrow. He is advised to return to ED if any worsening complaints. Disposition: Discharge home Impression: Left lower extremity cellulitis This note was generated with TUNJI dictation software. It may contain incorrect words, spelling, and punctuation that were not noted in review of the chart prior to signing ED Disposition - Plan for ED Patient: Chief Complaint: Cellulitis Instructions: Discharge Instructions for Cellulitis Prescriptions: Clindamycin [Cleocin] 300 mg PO 4X/DAY #80 capsule Referrals: Mian Wilburn III, MD [Primary Care Provider] - What to do if you have Problems For any increased pain, shortness of breath, bleeding, nausea or vomiting, chest pain, or any unexpected problems, contact your Primary Care Provider. Call [facility] ([phone]) or report to the closest Emergency Room. Call 911 if necessary. 10/01/17346 <Electronically signed by Emilee Noe MD> Date Emilee Noe MD Cosigner Signature (If Indicated): Date CC: Mian Wilburn III, MD DISCHARGE INSTRUCTION Observed: 10/01/2017 Status: F Source: [place] 3:33 AM [facility] REPOSITORY [facility] Medical Records Department [address] [place] [address] Discharge Instruction 10/01/17 0332 MR#: [id number] Acct: [id number] Name: NOMAN STONE Rep #: [id number] : 1955 61 From: Emilee Noe MD PCP: Mian Wilburn III, MD Status: REG ER ED Disposition - Plan for ED Patient: Chief Complaint: Cellulitis Instructions: Discharge Instructions for Cellulitis Prescriptions: Clindamycin [Cleocin] 300 mg PO 4X/DAY #80 capsule Referrals: Mian Wilburn III, MD [Primary Care Provider] - What to do if you have Problems For any increased pain, shortness of breath, bleeding, nausea or vomiting, chest pain, or any unexpected problems, contact your Primary Care Provider. Call [facility] ([phone]) or report to the closest Emergency Room. Call 911 if necessary. 10/01/17 0333 <Electronically signed by Emilee Noe MD> Date Emilee Noe MD Cosigner Signature (If Indicated): Date CC: Mian Wilburn III, MD [facility] Observed: 10/01/2017 Status: COMPLETED Source: [place] 12:00 AM [facility] REPOSITORY Letter Text Isabel Gray MD Thoracic and Cardiovascular Surgery [address] [place] [address] Toll Free: [phone] ext. [phone] Email: [email or web address] October 01, 2017 Mian Wilburn III MD [facility] [address] Fax No. [phone] RE: Noman Stone Dear Patricia, I am pleased to provide this preliminary report on your patient, Mr. Noman Stone, who recently underwent surgery with me at the [facility]. I am attaching an draft copy of my operative report for your immediate review. I would anticipate an uneventful post-operative course. I certainly appreciate the opportunity to participate in the care of your patient. I will keep you informed of his progress and will be sending you copies of his finalized operative report and discharge summary when they become available. I do believe we can anticipate an excellent intermediate benefit for Mr. Stone. Thank you again for sending Mr. Stone to me. Please do not hesitate to contact me at my office or on my personal cell phone [phone] if I may be of any further assistance with his or any patient's care. Warmest Regards, Isabel Gary MD Enclosure: Operative Note Draft CTA CHEST W/WO Observed: 09/30/2017 Status: F Source: [place] CONTRAST 11:57 PM [facility] REPOSITORY [facility] Imaging Services [address] [place] [address] CTA Chest W/WO Contrast MR#: [id number] Acct: [id number] Name: NOMAN STONE Rep #: [id number] : 1955 M 61 From: Trey Forbes MD PCP: Mian Wilburn III, MD Status: REG ER Study: CTA Chest W/WO Contrast Date of Exam: 09/30/17 Exam# [id number] Ordering Dr: Emilee Noe MD STUDY: CTA CHEST REASON FOR EXAM: Male, 61 years old. Elevated d-dimer RADIATION DOSAGE (If Supplied By Facility): CTDIvol = ( 33.20 ) mGy, DLP = ( 775.38 ) mGycm TECHNIQUE: The examination was performed with the intravenous administration of 100 ml of Isovue 300 contrast material. Post-processing of the angiographic images was performed, with multiplanar reformation and 3D reconstruction. Individualized dose optimization techniques were used for this CT. COMPARISON: None. FINDINGS: Normal enhancement of the main pulmonary artery and right and left pulmonary arteries. Normal enhancement of the bilateral peripheral pulmonary arteries. There is no demonstrated pulmonary embolism. Normal thoracic aorta and visualized great vessels. There is no demonstrated aortic dissection. Sternal cerclage wires and vascular clips are present from a prior sternotomy and coronary artery bypass graft procedure (CABG). Normal mediastinum. Normal hilar regions. Normal visualized trachea and bronchi. Subsegmental atelectases are noted in the right and left lung bases. Normal pulmonary parenchyma. Small left pleural effusion. Normal chest wall structures. Normal osseous structures. Normal visualized upper abdomen. CT/CTA Chest W/WO Contrast IMPRESSION: Normal CTA chest examination, without a demonstrated pulmonary embolism or arterial dissection. Electronically Signed: Trey Forbes MD at 3:06 EDT Tel , Service support , CC: Emilee Noe MD; Mian Wilburn III, MD 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: Signed CBC W/DIFF, AUTOMATED Collected: 09/30/2017 Status: F Source: [place] 11:18 PM [facility] REPOSITORY TYPE CODE TESTS RESULT OUT OF RANGE REFERENCE UNITS LAB L100.1000 4.4-11.0 K/mm3 Normal WBC 11.0 LAB L100.1200 4.6-6.2 M/mm3 Low RBC 3.94 LAB L100.1300 13.0-16.5 g/dl Low HGB 11.4 LAB L100.1400 40-54 % Low HCT 35.7 LAB L100.1500 80-94 fL Normal MCV 90.6 LAB L100.1600 27.0-32.0 pg Normal MCH 28.9 LAB L100.1700 32-36 g/gl Low MCHC 31.9 LAB L100.1810 11.6-14.6 % Normal RDW CV 14.0 LAB L100.1820 35.1-43.9 fl High RDW SD 46.1 LAB L100.1900 150-450 K/mm3 Normal PLT 347 LAB L100.2000 6.2-12.0 fl Normal MPV 9.3 LAB L100.2100 47-70 % Normal NEUT% 60.7 LAB L100.2200 19-41 % Normal LY% 23.9 LAB L100.2300 0-10 % Normal MONO% 6.8 LAB L100.2400 0-5 % High EO% 7.4 LAB L100.2500 0-1 % Normal BASO% 0.4 LAB L100.2550 0.0-0.9 % Normal IM GRAN % 0.800 Result Comment: IG% - Immature Granulocytes (promyelocytes, myelocytes and metamyelocytes) > 1% indicates that a LEFT SHIFT is Present. LAB L100.2620 2.0-7.7 X10 3/uL Normal Absolute Neut 6.7 LAB L100.2720 0.83-4.51 X10 3/ul Normal Absolute Lymph 2.63 Performed By: #### L100.0100 #### [facility] [address] [place], [place], [address] BASIC METABOLIC Collected: 09/30/2017 Status: F Source: [place] PROFILE (BMP) 11:18 PM [facility] REPOSITORY TYPE CODE TESTS RESULT OUT OF RANGE REFERENCE UNITS LAB L501.0100 74-106 mg/dL High GLU 150 Result Comment: Fasting Glucose result greater than or equal to 126 mg/dL suggests DIABETES MELLITUS per A.D.A. criteria. Please note revised GLUCOSE reference range effective 2017. LAB L501.1000 7-18 mg/dL High BUN 21 LAB L501.1100 0.70-1.30 mg/dL High CREAT,SERUM 1.55 Result Comment: The validity of the calculated GFR AND GFRAA in patients over 70 years has not been determined. Clinical correlation is essential. LAB L501.1110 >60 mL/min Low EST GFR 48 Result Comment: Non- GFR Calc LAB L501.1115 >60 mL/min Low EST GFR - AA 59 Result Comment: GFR Calc LAB L501.1255 ml/min Normal Estimated CRCL 47.81 LAB L501.1300 10-20 RATIO Normal BUN/CRE 13.5 LAB L501.2200 8.5-10 mg/dL Normal .1 CA 9.3 LAB L501.5300 136-14 mmol/L Low 5 NA 135 LAB L501.5600 3.5-5. mmol/L Normal 1 K 4.9 LAB L501.5900 98-107 mmol/L Low CL 97 LAB L501.6100 21.0-3 mmol/L Normal 2.0 CO2 32.0 LAB L501.6200 5-15 Normal GAP 6 Performed By: #### L500.2500 #### [facility] [address] [place], [place], [address] PROTHROMBIN TIME W/INR Collected: 09/30/2017 Status: F Source: [place] 11:18 PM [facility] REPOSITORY TYPE CODE TESTS RESULT OUT OF RANGE REFERENCE UNITS LAB L300.4150 11.7-14.9 SECONDS High PROTIME 22.3 LAB L300.4200 Normal INR 2.0 Performed By: #### L300.3900, L300.8000 #### [facility] [address] [place], [address] D-DIMER QUANTITATIVE Collected: 09/30/2017 Status: F Source: [place] (DVT/PE) 11:18 PM [facility] REPOSITORY TYPE CODE TESTS RESULT OUT OF RANGE REFERENCE UNITS LAB L300.8000 0.27-0.49 FEU/ug/m High alert D-DIMER 3.61 QUANT Result Comment: D-Dimer ELEVATED (>0.49): Additional studies and clinical assessments are indicated to conclude diagnosis of: Deep Vein Thrombosis (DVT) or Pulmonary Embolism (PE) RESULTS CALLED TO [facility] 09/30/17 2350 [address]. REPORT READ BACK BY SAME. Performed By: #### L300.3900, L300.8000 #### [facility] [address] [place], [address] PROGRESS Observed: 09/28/2017 Status: COMPLETED Source: [place] 4:19 PM [facility] REPOSITORY HNO ID: [id number] Author: Radha Mcneil Psr Service: (none) Author Type: (none) Type: Progress Notes Filed: 10/08/2017 8:39 PM Note Text: 1st attempt to reach patient. Left message for patient to call and reschedule 10/03 Dr. Wilburn appointment for TCM review and hospital discharge. PROGRESS Observed: 09/28/2017 Status: COMPLETED Source: [place] 12:25 PM [facility] REPOSITORY HNO ID: [id number] Author: Yamel Donohue Pharm-T Service: (none) Author Type: (none) Type: Progress Notes Filed: 10/08/2017 8:39 PM Note Text: I reviewed the medication history and agree as documented. I have adjusted the medication list to accurately reflect any approved changes from the medication history. I have reviewed patient's medication list for correct doses, drug interactions, and any renal dose adjustments. Additional actions taken: Drug interactions noted: Cat X drug interaction between Lipitor and Lopid due to risk of Rhabdmyolysis. Recommend d/c Lopid and continuing Lipitor 80mg daily. The Lopid also interacts with Warfarin and can result in an increase in INR. Cat D drug interaction between Colchicine and Coreg. The Coreg can increase Colchicine levels. The Colchicine is prescribed short-term for post-op pericarditis, therefore recommend continued monitoring for this interaction. Pt has received this combination while inpatient and it was tolerated. Cat D drug interaction between Colchicine and Lipitor. Recommend carefully monitoring for signs of muscle pain and/or weakness with concomitant therapy. Colchicine prescribed for short-term therapy only for post-op pericarditis. Routing to provider office to re-schedule TCM appt. 10/03 [facility] appt, 10/04 CTS appt, Cardio appt to be scheduled in 4-5 weeks Eveline Veliz PharmD September 28, 2017 2:51 PM TRANSITION CARE MANAGEMENT (TCM) INITIAL CONTACT Provider Action/FYI: ? Able to complete medication review. Initial contact with patient post discharge, spoke to patient. Patient identified by name and . Summary: -Pt discharged from [facility] on 09/27/17. -Follow up appointment on - will route to wire inspector, pt canceled PCP appt -Medication review done Yes. -Admitted for Hx of CABG [Z95.1], Atrial fibrillation, unspecified type (HCC) [I48.91] ALLERGIES Allergen Reactions - Adhesive Rash Redness to skin - Lisinopril Cough - Penicillins Unknown childhood Legend: Stopped, New, Changed, Added to list Medication List Medication Directions Comments Action/Plan acetaminophen (TYLENOL) 325 mg tablet Take 2 tablets by mouth every 6 hours as needed for Pain or Fever. Discontinued: 09/27/2017 3:14 PM D/C at discharge, was on HOLD while inpatient Discontinued: 09/27/2017 3:14 PM D/C at discharge, on Plavix and Warfarin atorvastatin (LIPITOR) 80 mg tablet Take 1 tablet by mouth once daily. blood sugar diagnostic (FREESTYLE LITE STRIPS) test strip TEST BLOOD SUGAR ONCE DAILY. DX: E11.65. Insulin: No Patient taking differently: three times daily. TEST BLOOD SUGAR ONCE DAILY. DX: E11.65. Insulin: No Now testing TID Marked as pt taking differently Discontinued: 09/27/2017 3:14 PM Dose change carvedilol (COREG) 25 mg tablet Take 0.5 tablets by mouth twice daily with meals. Dose decreased Cholecalciferol, Vitamin D3, 1,000 unit cap Take 1 capsule by mouth once daily. clopidogrel (PLAVIX) 75 mg tablet Take 1 tablet by mouth once daily. colchicine (COLCRYS) 0.6 mg tablet Take 1 tablet by mouth once daily for 10 days. Taking for post-op pericarditis furosemide (LASIX) 20 mg tablet Take 1 tablet by mouth once daily for 5 days. gemfibrozil (LOPID) 600 mg tablet Take 0.5 tablets by mouth twice daily. Discontinued: 09/27/2017 3:14 PM Hydrochlorothiazide 12.5 mg capsule Take one capsule by mouth once daily after Lasix prescription is completed after 5 days Med Update Discontinued: 09/27/2017 3:14 PM No longer taking Discontinued: 09/27/2017 3:14 PM No longer taking/change course of therapy Discontinued: 09/27/2017 3:14 PM No longer taking insulin glargine (LANTUS U-100 INSULIN) 100 unit/mL injection Inject 30 Units subcutaneously daily at bedtime. Via Syringe insulin lispro (HUMALOG) 100 unit/mL injection If blood glucose is 151-200 = 2 unit; 201-250 = 4 units; 251-300 = 6 units; 301-350 = 8 units; 351-400 = 10 units; >[address] Insulin Syringe-Needle U-100 (BD INSULIN SYRINGE ULTRAFINE) 0.3 mL 31 gauge x 5/16 syrg 10 Units once daily. 30 units once daily of Lantus Marked as pt taking differently insulin syringe-needle U-100 0.3 mL 31 gauge x 15/64 syrg for insulin injection three times daily as directed Discontinued: 09/27/2017 3:14 PM D/C at discharge Discontinued: 09/27/2017 3:14 PM D/C at discharge due to worsening renal fxn Magnesium Oxide 500 mg cap Take 500 mg by mouth once daily. nitroglycerin sublingual (NITROSTAT) 0.4 mg SL tablet Dissolve 1 tablet under the tongue as needed. DISSOLVE ON TONGUE FOR CHEST PAIN. IF NO PAIN RELIEF, CALL 911 oxyCODONE IR (ROXICODONE) 5 mg immediate release tablet Take 1 tablet by mouth every 6 hours as needed for Pain for up to 7 days. potassium chloride ER (K-DUR, KLOR-CON) 20 mEq tablet Take 1 tablet by mouth once daily for 5 days. senna-docusate (SENNA-S) 8.6-50 mg per tablet Take 1 tablet by mouth twice daily as needed for Constipation. TRULICITY 1.5 mg/0.5 mL pnij INJECT 1.5MG SUBCUTANEOUSLY ONCE EACH WEEK, DISCARD PEN AFTER warfarin (COUMADIN) 2.5 mg tablet Take 1 tablet by mouth daily as directed. Monitored by marybeth Simms on 10/03 Medication History: ? Patient Adherence: Good ? Source of History: Memory ? The above information represents the best possible medication history: Yes Additional Comments: Reviewed medication list with patient. Patient list is current and up to date. Patient did confirm he is now testing TID. He was just able to let me know what was D/C at discharge but not the reasons why. Patient has no questions or concerns at this time and declined a follow up phone call. Time spent on patient: 15-30 minutes Yamel Donohue Pharm-T September 28, 2017 12:25 PM [place] Observed: 09/28/2017 Status: COMPLETED Source: [place] 12:00 AM [facility] REPOSITORY Patient Outreach (PHRXRF) NOMAN STONE ([id number]) 1955 M Date Time Provider Department 09/28/17 EVELINE VELIZ PHARMD During your visit today, we recorded the following information about you: Yamel Donohue Pharm-T 09/28/2017 12:35 PM Signed I reviewed the medication history and agree as documented. I have adjusted the medication list to accurately reflect any approved changes from the medication history. I have reviewed patient's medication list for correct doses, drug interactions, and any renal dose adjustments. Additional actions taken: Drug interactions noted: Cat X drug interaction between Lipitor and Lopid due to risk of Rhabdmyolysis. Recommend d/c Lopid and continuing Lipitor 80mg daily. The Lopid also interacts with Warfarin and can result in an increase in INR. Cat D drug interaction between Colchicine and Coreg. The Coreg can increase Colchicine levels. The Colchicine is prescribed short-term for post-op pericarditis, therefore recommend continued monitoring for this interaction. Pt has received this combination while inpatient and it was tolerated. Cat D drug interaction between Colchicine and Lipitor. Recommend carefully monitoring for signs of muscle pain and/or weakness with concomitant therapy. Colchicine prescribed for short-term therapy only for post- op pericarditis. Routing to provider office to re-schedule TCM appt. 10/03 [facility] appt, 10/04 CTS appt, Cardio appt to be scheduled in 4-5 weeks Eveline Veliz PharmD September 28, 2017 2:51 PM TRANSITION CARE MANAGEMENT (TCM) INITIAL CONTACT Provider Action/FYI: ? Able to complete medication review. Initial contact with patient post discharge, spoke to patient. Patient identified by name and . Summary: -Pt discharged from [facility] on 09/27/17. -Follow up appointment on - will route to wire inspector, pt canceled PCP appt -Medication review done Yes. -Admitted for Hx of CABG [Z95.1], Atrial fibrillation, unspecified type (HCC) [I48.91] ALLERGIES Allergen Reactions - Adhesive Rash Redness to skin - Lisinopril Cough - Penicillins Unknown childhood Legend: Stopped, New, Changed, Added to list Medication List Medication Directions Comments Action/Plan acetaminophen (TYLENOL) 325 mg tablet Take 2 tablets by mouth every 6 hours as needed for Pain or Fever. Discontinued: 09/27/2017 3:14 PM D/C at discharge, was on HOLD while inpatient Discontinued: 09/27/2017 3:14 PM D/C at discharge, on Plavix and Warfarin atorvastatin (LIPITOR) 80 mg tablet Take 1 tablet by mouth once daily. blood sugar diagnostic (FREESTYLE LITE STRIPS) test strip TEST BLOOD SUGAR ONCE DAILY. DX: E11.65. Insulin: No Patient taking differently: three times daily. TEST BLOOD SUGAR ONCE DAILY. DX: E11.65. Insulin: No Now testing TID Marked as pt taking differently Discontinued: 09/27/2017 3:14 PM Dose change carvedilol (COREG) 25 mg tablet Take 0.5 tablets by mouth twice daily with meals. Dose decreased Cholecalciferol, Vitamin D3, 1,000 unit cap Take 1 capsule by mouth once daily. clopidogrel (PLAVIX) 75 mg tablet Take 1 tablet by mouth once daily. colchicine (COLCRYS) 0.6 mg tablet Take 1 tablet by mouth once daily for 10 days. Taking for post-op pericarditis furosemide (LASIX) 20 mg tablet Take 1 tablet by mouth once daily for 5 days. gemfibrozil (LOPID) 600 mg tablet Take 0.5 tablets by mouth twice daily. Discontinued: 09/27/2017 3:14 PM Hydrochlorothiazide 12.5 mg capsule Take one capsule by mouth once daily after Lasix prescription is completed after 5 days Med Update Discontinued: 09/27/2017 3:14 PM No longer taking Discontinued: 09/27/2017 3:14 PM No longer taking/change course of therapy Discontinued: 09/27/2017 3:14 PM No longer taking insulin glargine (LANTUS U-100 INSULIN) 100 unit/mL injection Inject 30 Units subcutaneously daily at bedtime. Via Syringe insulin lispro (HUMALOG) 100 unit/mL injection If blood glucose is 151-200 = 2 unit; 201-250 = 4 units; 251-300 = 6 units; 301-350 = 8 units; 351-400 = 10 units; >[address] Insulin Syringe-Needle U-100 (BD INSULIN SYRINGE ULTRAFINE) 0.3 mL 31 gauge x 5/16 syrg 10 Units once daily. 30 units once daily of Lantus Marked as pt taking differently insulin syringe-needle U-100 0.3 mL 31 gauge x 15/64 syrg for insulin injection three times daily as directed Discontinued: 09/27/2017 3:14 PM D/C at discharge Discontinued: 09/27/2017 3:14 PM D/C at discharge due to worsening renal fxn Magnesium Oxide 500 mg cap Take 500 mg by mouth once daily. nitroglycerin sublingual (NITROSTAT) 0.4 mg SL tablet Dissolve 1 tablet under the tongue as needed. DISSOLVE ON TONGUE FOR CHEST PAIN. IF NO PAIN RELIEF, CALL 911 oxyCODONE IR (ROXICODONE) 5 mg immediate release tablet Take 1 tablet by mouth every 6 hours as needed for Pain for up to 7 days. potassium chloride ER (K-DUR, KLOR-CON) 20 mEq tablet Take 1 tablet by mouth once daily for 5 days. senna-docusate (SENNA-S) 8.6-50 mg per tablet Take 1 tablet by mouth twice daily as needed for Constipation. TRULICITY 1.5 mg/0.5 mL pnij INJECT 1.5MG SUBCUTANEOUSLY ONCE EACH WEEK, DISCARD PEN AFTER warfarin (COUMADIN) 2.5 mg tablet Take 1 tablet by mouth daily as directed. Monitored by marybeth Simms on 10/03 Medication History: ? Patient Adherence: Good ? Source of History: Memory ? The above information represents the best possible medication history: Yes Additional Comments: Reviewed medication list with patient. Patient list is current and up to date. Patient did confirm he is now testing TID. He was just able to let me know what was D/C at discharge but not the reasons why. Patient has no questions or concerns at this time and declined a follow up phone call. Time spent on patient: 15-30 minutes Yamel Donohue Pharm-T September 28, 2017 12:25 PM Radha Mcneil Psr 10/08/2017 8:39 PM Signed 1st attempt to reach patient. Left message for patient to call and reschedule 10/03 Dr. Wilburn appointment for TCM review and hospital discharge. Avis May, PSR 10/08/2017 8:39 PM Signed This note was created using [email or web address]. Subjective Noman Stone is a 61 year old male. Review of Systems Objective There were no vitals taken for this visit. Physical Exam Assessment and Plan Avsi May, PSR 10/08/2017 8:39 PM Signed Patient scheduled for 10/08 Allergies As of Date: 09/28/2017 Noted Allergy Reaction ADHESIVE 05/12/2008 2 - Rash Comments: Redness to skin LISINOPRIL 11/17/2010 3 - Cough PENICILLINS 06/22/2005 16 - Unknown Comments: childhood Date Reviewed: 09/28/2017 Reviewed by: Yamel Donohue Pharm-T - Fully Assessed Reason for Visit: Transition Of Care [4074] Cmt: Hospital Disharge 09/27/2017 Prescriptions as of 09/28/2017 Sig: INSULIN LISPRO (U-100) 100 UN* If blood glucose is 151- 200 =* INSULIN SYRINGE-NEEDLE U-100 * for insulin injection three t* CARVEDILOL 25 MG TABLET Take 0.5 tablets by mouth twi* ACETAMINOPHEN 325 MG TABLET Take 2 tablets by mouth every* OXYCODONE 5 MG TABLET Take 1 tablet by mouth every * WARFARIN 2.5 MG TABLET Take 1 tablet by mouth daily * POTASSIUM CHLORIDE ER 20 MEQ * Take 1 tablet by mouth once d* X COLCHICINE 0.6 MG TABLET Take 1 tablet by mouth once d* X SENNOSIDES 8.6 MG-DOCUSATE SO* Take 1 tablet by mouth twice * X HYDROCHLOROTHIAZIDE 12.5 MG C* Take one capsule by mouth onc* X FUROSEMIDE 20 MG TABLET Take 1 tablet by mouth once d* TRULICITY 1.5 MG/0.5 ML SUBCU* INJECT 1.5MG SUBCUTANEOUSLY O* INSULIN GLARGINE (U-100) 100 * Inject 30 Units subcutaneousl* ATORVASTATIN 80 MG TABLET Take 1 tablet by mouth once d* GEMFIBROZIL 600 MG TABLET Take 0.5 tablets by mouth twi* X CLOPIDOGREL 75 MG TABLET Take 1 tablet by mouth once d* MAGNESIUM OXIDE 500 MG CAPSULE Take 500 mg by mouth once malgorzata* INSULIN SYRINGE-NEEDLE U-100 * 10 Units once daily. Patient taking differently: Inject 30 Units subcutaneousl* NITROGLYCERIN 0.4 MG SUBLINGU* Dissolve 1 tablet under the t* BLOOD SUGAR DIAGNOSTIC STRIPS TEST BLOOD SUGAR ONCE DAILY. * Patient taking differently: three times daily. CHOLECALCIFEROL (VITAMIN D3) * Take 1 capsule by mouth once * Problem List As Of Date 09/28/2017 Noted Resolved Raynaud's syndrome [I73.00] Primary hypertension [I10] Priority: C More... Hyperlipidemia [E78.5] Priority: C More... PERIPH VASCULAR DIS NOS [I73.9] INVALID FOR* Chronic low back pain [M54.5, G89.29] INVALID FOR* Priority: C More... ASCVD [I25.10] INVALID FOR* Anxiety state [F41.1] INVALID FOR* Skin lesion [L98.9] INVALID FOR* Peripheral arterial disease [I73.9] INVALID FOR* Priority: C More... Parotid discomfort [K11.9] INVALID FOR* Diabetes mellitus (HCC) [E11.9] INVALID FOR*08/28/2013 Anxiety [F41.9] INVALID FOR* GERD (gastroesophageal reflux disease) [K21.9] INVALID FOR* Low testosterone [E34.9] INVALID FOR* Diabetes mellitus type 2 with peripheral artery*INVALID FOR* Priority: C More... SUMMARY INVALID FOR*02/14/2015 Priority: Mild More... 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] INVALID FOR*09/27/2017 Priority: B More... CAD (coronary artery disease) [I25.10] INVALID FOR* Priority: A More... Unstable angina ([facility]) [I20.0] INVALID FOR*09/27/2017 Priority: C More... 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 Stage 3 chronic kidney disease ([facility]) [N18.3] INVALID FOR* Priority: C More... More... Leukocytosis [D72.829] INVALID FOR*09/27/2017 Priority: I More... Discharge planning issues [Z02.9] INVALID FOR* Priority: M More... On mechanically assisted ventilation ([facility]) [Z99*INVALID FOR*09/22/2017 Priority: B More... Pain, postoperative, acute [G89.18] INVALID FOR* Priority: C More... A-fib ([facility]) [I48.91] INVALID FOR* Priority: A More... Atelectasis [J98.11] INVALID FOR* Priority: B More... Summary [Z91.89] INVALID FOR* Priority: Very Severe More... Anticoagulation management encounter [Z51.81, Z*INVALID FOR* Priority: C More... Current use of intermediate manager anticoagulation [Z79.0*INVALID FOR* Encounter Status:Closed by MIAN WILBURN III, MD on 10/08/17 CNDS Observed: 09/27/2017 Status: COMPLETED Source: [place] 4:36 PM [facility] REPOSITORY HNO ID: [id number] Author: Irma Forte Service: Cardiac Surgery Author Type: Nurse Practitioner Type: Discharge Summaries Filed: 09/27/2017 5:01 PM Note Text: Department of Cardiothoracic Surgery Discharge Summary (Template ID [id number]) Patient Name: Noman Stone Patient Admission Date: 09/13/2017 Discharge Date: 09/27/2017 Attending Physician: Isabel Gray Primary Service: i Cts Team A Admission Diagnosis: Hx of CABG [Z95.1], Atrial fibrillation, unspecified type (HCC) [I48.91] Discharge Diagnosis: Hx of CABG [Z95.1], Atrial fibrillation, unspecified type (HCC) [I48.91] [facility] Surgeon: Isabel Gray MD [facility] Primary Procurement Director: Keith Kovacs MD (Jose Arnold MD - [facility]) Reason for Hospitalization: 61M with CAD (prior PCI to RCA, rPDA and LAD), PAD with prior LLE stent, HNT, HLD, DMII, ARNOLDO was transferred to [facility] 09/13/2017 with severe 3v CAD here for consideration of CABG. He describes slowly progressive angina over the last several months. Despite presenting with AF with slow ventricular response, he spontaneously cardioverted to sinus rhythm with normal HR (70s). Reasonable to consider CABG with MAZE and possible SHAD exclusion. After pre-op work- up with evaluation by CT surgery, cardiovascular medicine, vascular surgery and endocrinology; pt. was deemed a surgical candidate. Operations during Hospitalization: DATE: 09/21/2017 SURGEON 1: Isabel Gray M.D. WHIPPED TOPPING MIXER 1: Harman Ruiz M.D. OPERATION: CABG x5, MANCERA-LAD, SVG-ramus, SVG-PDA-PLV, SVG- OM, PV isolation, left atrial appendage excision. Hospital Course: * How was the Reason for Hospitalization Addressed: After pre-op testing and evaluation, pt. was deemed a surgical candidate. The above surgery was performed as planned. Pt. received routine post-op care in the ICU and floor. His rhythm was monitored, meds were adjusted as tolerated, diuresed for post-op volume overload and Coumadin was started/adjusted daily for paroxysmal atrial fibrillation (no episodes post-op). * What were the Active Issues: Please refer to problem list below. Additional findings also included: 1. Need for anticoagulation: You have a history of atrial fibrillation and Dr. Gray requested you be started on a blood thinner (anticoagulation) called Coumadin to help prevent blood clots. You will need to have frequent blood tests called PT/INR's while on this medication. Your PT/INR at discharge was 2.2 (goal is 2.0-3.0). If you remain in normal rhythm after 2-3 months you may consider stopping the coumadin after discussing with your PCP/Procurement Director. Your PCP Dr. Wilburn has agreed to manage your Coumadin and INR results after you leave the hospital. He will set you up to be seen at the [facility] within one week. Below is your dosing chart. Please show them this. Your first blood draw is due within one week at the [facility] (ext [phone]). If you do not hear when your first INR is due, please call them at [phone] (ext [phone]) or Dr. Wilburn at [phone] Coumadin Dosing Date INR Dose 09/22/2017 --- 5mg 09/23/2017 1.2 5mg 09/24/2017 1.5 3mg 09/25/2017 2.4 1 mg 09/26/2017 2.1 2.5mg 09/27/2017 2.2 2.5mg 09/28/2017 --- continue Coumadin 2.5mg daily until seen at [facility] for first INR check 10/04/17 You will also have INR check at your post-op visit at [facility] 2. Intraop epicarditis/post-op pericarditis: Intra-operatively and per your pathology you had evidence of epicarditis/pericarditis (inflammation of the heart sac). Post-op your EKG's and telemetry showed evidence of acute ST elevation. Your troponin levels were acceptable post-op. You were not symptomatic from this and this should resolve as you recover. You were started on an anti-inflammatory medication called colchicine. This medication is taken for two weeks, then stopped. Should you develop any new chest pain or shortness of breath, notify your local providers immediately for follow-up. 3. Diabetes management: You blood sugars were followed by the endocrinology service during your hospitalization. Your hemaglobin A1C 8.8 before surgery. At discharge, endocrine recommends: DM DISCHARGE PLAN: ? ?Lantus 30 units daily Dulaglutide (Trulicity) 0.75 and 1.5 mg pen (once weekly) And Supplemental Sliding Scale before meals only If Blood Glucose (mg/dL) is <110 Give 0 units, 111-150 Give 0 units, 151-200 Give 2 unit, 201-250 Give 4 units, 251-300 Give 6 units, 301-350 Give 8 units, 351-400 Give 10 units >400 Call physician. ? ?Check blood sugars Three times a Day? ? ?Diet: Low carbohydrate ? ?Exercise as prescribed by cardiology ? ?Follow up with cable installation technician and box office clerk as recommended. ? ?Patient will need follow-up with his home pacu nurse/PCP in 1-2 weeks after discharge. ? ?Diabetes Care Team Hospital Discharge Help Line: [phone] * Surgical Pathology/Microbiology: FINAL DIAGNOSIS: Left atrial appendage, excision - Mild interstitial fibrosis. Mild epicarditis. * Hospital Course Complicated by: Hospital course was not complicated. * Extended Hospital Stay Due to: Pre-op course was slightly prolonged as pre-op eval was in progress. * Specific Medication Changes: please refer to discharge med reconciliation. * Pain: Adequate management. Mr. Stone has undergone cardiac surgical procedure with pain medication 30 MED limit established by the [facility] (#4731-02-05). The patient is being prescribed for a maximum of 7 days with no refills and has been provided with weaning instructions emphasizing the use of non-narcotic alternatives that are medically tolerable. The patient will be re-evaluated at follow up in 3-10 days from discharge to reassess his/her pain management and clinical status. Please wean as tolerated by increasing time between doses * Surgical Incisions/Wounds: Sternal incision, SVG harvest sites were healing well at time of discharge. Chest tube sutures were removed prior to discharge. * Patient Condition at Discharge: Improved * Disposition: Home/Self Care Problem List: Patient Active Hospital Problem List: CAD (coronary artery disease) (02/11/2015) Summary (09/25/2017) A-fib (HCC) (09/21/2017) Atelectasis (09/22/2017) Primary hypertension () Peripheral arterial disease (08/31/2010) Chronic low back pain (12/02/2007) Pain, postoperative, acute (09/21/2017) Hyperlipidemia () Diabetes mellitus type 2 with peripheral artery disease (HCC) (08/28/2013) Stage 3 chronic kidney disease (HCC) (09/17/2017) Leukocytosis (09/20/2017) Obesity, Class II, BMI 35-39.9 (09/13/2017) Discharge planning issues (09/21/2017) Anticoagulation management encounter (09/25/2017) Consults: Endocrinology was following for diabetes management pre/post-op. Cardiology followed pre-operatively. Vascular surgery evaluated PAD/surgical candidacy pre-op. Procedures Performed and Major Radiology: Pre-op testing included carotid duplex, lower extremity NIKKI's, Cardiac CT chest, ultrasound of kidneys, and 2D echo. No post-op testing was needed Information Provided to the Patient: Patient given copy of After Visit Summary which included activity instructions, diet instructions, wound care instructions, medication instructions and follow up appointment Discharge Medications: Current Discharge Medication List START taking these medications insulin lispro (HUMALOG) 100 unit/mL injection If blood glucose is 151-200 = 2 unit; 201-250 = 4 units; 251- 300 = 6 units; 301-350 = 8 units; 351-400 = 10 units; >400 Call Qty: 10 mL Refills: 0 insulin syringe-needle U-100 0.3 mL 31 gauge x 15/64 syrg for insulin injection three times daily as directed Qty: 100 Syringe Refills: 0 acetaminophen (TYLENOL) 650 mg Take 650 mg by mouth every 6 hours as needed for Pain or Fever. oxyCODONE IR (ROXICODONE) 5 mg Take 5 mg by mouth every 6 hours as needed for Pain. Earliest Fill Date: 09/27/17 Qty: 28 tablet Refills: 0 Associated Diagnoses:Pain, postoperative, acute warfarin (COUMADIN) 2.5 mg Take 2.5 mg by mouth daily as directed. Qty: 90 tablet Refills: 1 colchicine 0.6 mg Take 0.6 mg by mouth once daily. Qty: 10 tablet Refills: 0 senna-docusate (SENNA-S) 1 tablet Take 1 tablet by mouth twice daily as needed for Constipation. potassium chloride ER (K-DUR, KLOR-CON) 20 mEq Take 20 mEq by mouth once daily. Qty: 5 tablet Refills: 0 furosemide (LASIX) 20 mg Take 20 mg by mouth once daily. Qty: 5 tablet Refills: 0 CONTINUE these medications which have CHANGED carvedilol (COREG) 12.5 mg Take 12.5 mg by mouth twice daily with meals. Qty: 180 tablet Refills: 3 Hydrochlorothiazide 12.5 mg capsule Take one capsule by mouth once daily after Lasix prescription is completed after 5 days CONTINUE these medications which have NOT CHANGED TRULICITY 1.5 mg/0.5 mL pnij INJECT 1.5MG SUBCUTANEOUSLY ONCE EACH WEEK, DISCARD PEN AFTER Qty: 12 Pen Refills: 3 insulin glargine (LANTUS) 30 Units Inject 30 Units subcutaneously daily at bedtime. Via Syringe Qty: 3 Vial Refills: 3 Associated Diagnoses:Diabetes mellitus type 2 with peripheral artery disease (HCC); Type 2 diabetes mellitus with stage 3 chronic kidney disease, with long-term current use of insulin (HCC) atorvastatin (LIPITOR) 80 mg Take 80 mg by mouth once daily. Qty: 90 tablet Refills: 3 Associated Diagnoses:Mixed hyperlipidemia gemfibrozil (LOPID) 300 mg Take 300 mg by mouth twice daily. Qty: 90 tablet Refills: 3 Associated Diagnoses:Essential hypertension clopidogrel (PLAVIX) 75 mg Take 75 mg by mouth once daily. Qty: 90 tablet Refills: 3 Magnesium Oxide 500 mg Take 500 mg by mouth once daily. Refills: 0 Insulin Syringe-Needle U-100 10 Units 10 Units once daily. Qty: 100 Syringe Refills: 11 nitroglycerin sublingual (NITROQUICK) 0.4 mg Dissolve 0.4 mg under the tongue as needed. DISSOLVE ON TONGUE FOR CHEST PAIN. IF NO PAIN RELIEF, CALL 911 Qty: 25 tablet Refills: 6 blood sugar diagnostic (FREESTYLE LITE STRIPS) test strip TEST BLOOD SUGAR ONCE DAILY. DX: E11.65. Insulin: No Qty: 100 Strip Refills: 3 Cholecalciferol (Vitamin D3) 1,000 Units Take 1,000 Units by mouth once daily. Refills: 0 STOP taking these medications losartan (COZAAR) 25 mg Comments: Reason for Stopping: isosorbide mononitrate ER (IMDUR) 60 mg Comments: Reason for Stopping: HYDROcodone-acetaminophen (NORCO) 1 tablet Comments: Reason for Stopping: HYDROcodone-acetaminophen (NORCO) 1 tablet Comments: Reason for Stopping: HYDROcodone-acetaminophen (NORCO) 1 tablet Comments: Reason for Stopping: amLODIPine (NORVASC) 10 mg Comments: Reason for Stopping: aspirin(ECOTRIN LOW STRENGTH 81 MG TAB) Comments: Reason for Stopping: Outpatient Management: * Are there important medication changes and/or outstanding issues that need to be addressed: INR management will be done by PCP/[facility]. * What is the plan for follow up: Noman Stone was offered an appointment to return to [facility] Outpatient department for a post operative visit with the Nurse Practitioner. He accepted and scheduled an appointment 1. I have scheduled a post-op appointment for you with the [facility] Nurse Practitioner at [facility] on 10/04/2017. Please see information below. With this visit you will have blood work, EKG and chest x- ray for routine post-op monitoring. If you need to change this appointment, please call [phone]. 2. Make an appointment to see your PCP in 7-10 days after discharge. 3. Make an appointment to see your local equipment manager in 4-5 weeks after discharge. 4. You will be contacted by Dr. Wilburn's office for an INR check within a week at the [facility]. Future Appointments: Future Appointments Date Time Provider Department Center 10/03/2017 11:15 AM [id number] [facility] WSTR COUMWS [facility] 10/04/2017 9:15 AM [id number] MAIN [id number] CARD J BLD 10/04/2017 9:30 AM [id number] MAIN [id number] CARD J BLD 10/04/2017 9:45 AM [id number] CHEST MAIN J1 RADMNJ RADIO J BLDG 10/04/2017 10:00 AM [id number], MARY (SILVINA) THELKIN CTHO J DG Electronically SIGNED by Licensed Independent Practitioner: Irma Forte APRN.ASSISTANT STRENGTH COACH NURSING PROG Observed: 09/27/2017 Status: COMPLETED Source: [place] 4:28 PM [facility] REPOSITORY HNO ID: [id number] Author: Porsha (Rn) GENIA Reilly Service: (none) Author Type: Registered Nurse Type: Nursing Progress Note Filed: 09/27/2017 4:29 PM Note Text: Nursing Progress Note Patient Name: Noman Stone Patient Location: [place] [id number] Reviewed DC instructions with pt and at bedside. IV removed, sutures already out, and tele returned, all questions answered. This note was completed by: Porsha Reilly RN PT ED Observed: 09/27/2017 Status: COMPLETED Source: [place] 12:45 PM [facility] REPOSITORY HNO ID: [id number] Author: Sharona Riddle (Pharmacist) Service: Pharmacy Author Type: Pharmacist Type: Patient Education Filed: 09/27/2017 12:48 PM Note Text: PHARMACY WARFARIN EDUCATION Patient Name: Noman Stone Account #: Data Unavailable Admission Date: 09/13/2017 12:20 AM Date of Contact: September 27, 2017 Time of Contact: 12:45 PM Patient new to warfarin? Yes Outpatient follow-up plan: Follow-up with Physician: name: MIROSLAVA Sainz MD, III MD Indication for warfarin: atrial fibrillation Target INR range: 2.0 - 3.0 (Target 2.5) Patient received full warfarin education. Initial patient education included: * Reason for taking warfarin * How warfarin works * What the INR test is, frequency of testing, and the importance of monitoring warfarin with scheduled PT/INR blood draws or finger sticks * Information about plans to monitor warfarin post-discharge was reviewed * When to take warfarin and what to do if a dose is missed * Identifying tablet(s) and to notify the doctor/anticoagulation clinic if there is a change in tablet color, shape, or markings * Drug interactions (Rx, OTC, herbal) and importance of notifying the doctor/anticoagulation clinic with any changes. * Do not take or discontinue any medication or over the counter medication except on the advice of the physician or pharmacist because certain medications can affect the PT/INR. * Potential duration of therapy * Signs/symptoms of bleeding and what to do if they occur because warfarin increases the risk of bleeding * Precautionary measures to decrease trauma/bleeding * Signs/symptoms of thrombosis and what to do if they occur * Need to limit or avoid EtOH consumption * Dietary considerations discussing that a ?consistent amount? of foods with vitamin K rather than avoidances should be advised and to avoid major changes in dietary habits, or notify health professional before changing habits because diet can affect the PT/INR * Carrying identification * Importance of notifying healthcare provider and [facility] when hospitalizations occur and when another healthcare provider has asked them to stop/hold warfarin before any procedure * Importance of notifying all healthcare providers they are taking warfarin * Use of control measures if applicable * The importance of taking warfarin as instructed and the potential ramifications of non- compliance were explained to the patient. The patient was provided ?Understanding the Anticoagulant Medication Warfarin? education booklet which includes the following : compliance Issues, dietary advice, follow-up with physician, follow- up monitoring, potential adverse drug reactions and interactions. READINESS TO LEARN COGNITIVE ABILITY: Alert and oriented MOTIVATION TO LEARN: Interested FAMILY SUPPORT: Unable to assess - Family not present INSTRUCTION PROVIDED TO: Patient PATIENT LEARNS BEST BY: Multiple Methods FACTORS AFFECTING LEARNING: None PHYSICAL LIMITATIONS AFFECTING LEARNING: None LEARNING RESPONSE DIAGNOSIS: SEE INDICATION(S) ABOVE PATIENT/FAMILY RESPONSE: Verbalizes understanding of: The signs and symptoms of a worsening condition that warrant a call to the physician. Accurate knowledge of prescribed medication prior to discharge. The correct action to take if medication dose is missed. The side effects associated with the medication that warrant a call to the physician. Post discharge follow up instruction Diet monitoring METHOD OF INSTRUCTION: Individual instruction Written instruction - handouts Verbal instruction SUPPLEMENTAL MATERIAL PROVIDED: Vitamin K Chart and Warfarin booklet: FURTHER RECOMMENDATIONS (if any): None EVIDENCE OF LEARNING Outcomes met: Indicates understanding of topic Outcomes not met: N/A Outpatient Follow-up: Physician Sharona Riddle, Pharmacist Pager: [phone] PT ED Observed: 09/27/2017 Status: COMPLETED Source: [place] 11:51 AM [facility] MAIN [place] REPOSITORY O ID: [id number] Author: Carmela (Rn) Preethi Vickers, GENIA Service: Diabetes Education Author Type: Registered Nurse Type: Patient Education Filed: 09/27/2017 12:08 PM Note Text: DIABETES EDUCATION PROGRESS NOTE SERVICE DATE: 09/27/2017 RECOMMENDATIONS: Humalog vial, 1 vial (10ml), Epic code: [id number] (Voucher given) (pt understands it is at no charge AND should not be submitted through insurance) BD Insulin syringe ultra-fine, 0.3ml (31 x 15/64), 100/box, Epic code: [id number] Follow-up with endocrinology PATIENT HISTORY/ASSESSMENT: Met with patient to discuss BG management. Patient shared he has a working meter, supplies, takes Lantus using vial and syringe and Trulicity once a week. Patient's is also a diabetic on insulin. Action profile of Lantus reviewed and instructed on Humalog prandial plus correction. MDI plus correction scale #2 discussed and written out using My Diabetes Blueprint. Patient able to state total amount of Humalog to be given using prandial dose and extra according to correction scale using different BG#. Stressed the importance of following final discharge instructions. Patient declined to have insulin pen demonstrated, stated he prefers vial and syringe. Reviewed signs and treatment of hypoglycemia. Patient declined any further diabetes education or educational materials. DE# given for future resource. TOPIC(S): Survival Skills: Medication therapy: Injectables - Insulin lispro (Humalog) and Insulin glargine (Lantus) Patient Education/Health Promotion: Self management and follow up Diabetes Management: Hemaglobin A1C EDUCATION: Cognitive ability: Alert and Oriented. Motivation to learn: Interested. Barriers to learning: None Family support: Unable to assess - Family not present Education Type: Demonstration, handouts, discussion Response to education: States/Identifies. Education provided to: Patient. Teachback method used. Time Spent (Minutes): 15 SIGNATURE: Carmela Vickers, MSN, RN, CDE PATIENT NAME: Noman Stone DATE: September 27, 2017 TIME: 11:52 AM PAGER: [phone] PROGRESS Observed: 09/27/2017 Status: COMPLETED Source: [place] 10:50 AM [facility] MA[facility] [place] REPOSITORY O ID: [id number] Author: Irma Forte Service: Cardiac Surgery Author Type: Nurse Practitioner Type: Progress Notes Filed: 09/27/2017 3:51 PM Note Text: [facility] C[facility] POSTOP PROGRESS NOTE Day of Surgery:09/21/2017 S/P SURGERY: SURGEON 1: Isabel Gray M.D. WHIPPED TOPPING MIXER 1: Harman Ruiz M.D. OPERATION: CABG x5, MANCERA-LAD, SVG-ramus, SVG-PDA-PLV, SVG- OM, PV isolation, left atrial appendage excision. INTERVAL EVENTS / PERTINENT ROS: POD#6. No events overnight and pt. asking to be discharged. Ambulating well. PT rec home. Pain controlled and aware of 30 MED dosing for discharged and feels he can comply at discharge. Blood sugars 124-260 with current regimen. Awaiting endo eval for d/c recommendations. Maintaining NSR. No tele events noted. INR 2.2. Awaiting response from Dr. Wilburn for outpatient management. Below pre-op weight (-0.5kg) but continues to feel overloaded with mild generalized edema and lower extremity edema (refusing yasmany hose). Continue Lasix. Rhythm: NSR Intake/Output Summary (Last 24 hours) at 09/27/17 0701 Last data filed at 09/27/17 0500 Gross per 24 hour Intake 770 ml Output 1425 ml Net -655 ml EKG: most recent image reviewed, most recent report reviewed TELE: most recent recordings reviewed CXR: most recent image reviewed, most recent report reviewed Echocardiogram: most recent report reviewed PHYSICAL EXAM: BP 98/53 Pulse 83 Temp 36.6 ?C (97.9 ?F) (Oral) Resp 20 Ht 172.7 cm (5' 8) Wt 104.5 kg (230 lb 6.4 oz) SpO2 92% BMI 35.03 kg/m? Neuro: AANDO x 3 moves all extremities with no apparent weakness. Up in chair. CV: no jugular venous distention Heart Exam: RRR without murmur, gallop, or rubs. No ectopy. Resp: clear to auscultation bilaterally Abd: The abdomen is soft, nontender, nondistended; BS normal; no masses or organomegaly noted. Skin: Skin color, texture, turgor normal, no suspicious rashes or lesions Ext: mild generalized edema; 1+ non-pitting lower extremity edema. + pulses. Surgical incisions: MSI clean, dry and intact with steri-strips intact. Left SVG sites dry and intact. Chest tube: No Pacer wires: No. HISTORY, ASSESSMENT AND PLAN: Problem Summary Indication for Surgery: CAD LVEF: 60%, concentric LVH RVF: Mild Important/Relevant PMH/PSH: CAD (prior PCI to RCA, rPDA and LAD), PAD with prior LLE stent, HNT, HLD, DMII, ARNOLDO Preoperative Hospital Course: 61M with CAD (prior PCI to RCA, rPDA and LAD), PAD with prior LLE stent, HNT, HLD, DMII, ARNOLDO who presents with severe 3v CAD here for consideration of CABG. He describes slowly progressive angina over the last several months. Despite presenting with AF with slow ventricular response, he spontaneously cardioverted to sinus rhythm with normal HR (70s). Reasonable to consider CABG with MAZE and possible SHAD exclusion. Procedure/Surgeries: 09/21/2017 CABG x5 (MANCERA-LAD, SVG-D, SVG-OM, SVG-PDA-PLV), LAAL, PVI Airway Difficulty: Grade I - No special instrumentation OR Course: 2 pump runs, htn Pacing wires: No, CUT on 09/26 Postoperative Course/General Impression: : Arrived to ICU intubated and sedated. Requiring ntg drip for htn. Extubated NOS. 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 Continue diuresis. ST changes on ECG, trended troponin AND ECG>pericarditis. Transferred to floor 09/24/17. Issues to communicate at signout: POD#6. No tubes/wires. Rhythm: NSR. CXR 09/25 sm bilat. effusions/atelectasis. On room air. - CAD: hx of PCI (RCA, rPDA and LAD), s/p CABG x5: On Plavix, BB and statin - Hx of AF with slow ventricular response pre-op s/p PVI/SHAD clip: NSR post-op without recurrence. BB, daily dose warfarin. INR 2.2. Awaiting response from Dr. Wilburn for outpatient INR management. - FVO: now 0.5kg below pre-op weight but still feels overloaded with mild edema. Continue lasix. - HTN: BP controlled on BB and diuretic - DM: HA1C 8.8, endo consulted and following. Awaiting d/c recommendations. - PAD with prior LLE stent. Continue Plavix. Discharge Plannin yo male from [place], [place]. Likely d/c home today once outpatient INR management finalized and endocrine recommendations are finalized. CM following. PT rec home. No skilled needs anticipated. CTS OPD visit requested for one week. Pt. will follow-up with Dr. Wilburn in 1-2 weeks and will be establishing with Dr. 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 Anticipated Discharge Date: 09/27/17 Anticoagulation: In Process Care Management Discharge Needs: Needs Prior to Discharge: To Be Determined;OT/PT Evaluation A-Fib (Hcc) History: hx of afib not on AC preop Assessment: s/p 09/21/2017 s/p PVI, LAAE, converted to sinus and remaining Plan: Continue BB and Coumadin daily dose. Await response from PCP re: outpatient INR management. Cad (Coronary Artery Disease) History: s/p ELZA to rRCA 2.5x28mm Promus Premier EES on 02/11/15 c/b dissection during cath not amenable to corrective intervention. 09/11/2016 Developed palpitations, CE negative, Abnormal stress test. LHC at [facility] showed triple vessel disease. Transferred to [facility] for CABG eval. Last dose of Plavix 09/11/2016 Assessment: s/p 09/21/2017 CABG x5 (MANCERA-LAD, SVG-D, SVG-OM, SVG-PDA-PLV), LAAL, PVI Plan CAD Core Measures: Aspirin: No. Using Plavix and Coumadin. Beta blockers: Yes Statins: Yes Atelectasis History: Post-op problem. CXr showing small bilateral effusions/bibasilar atelectasis. Assessment: On room air. Plan: Encourage ongoing mobilization, PEP and optimize pain control. Anticoagulation Management Encounter History: On AC due to hx of Afib s/p LAAZ, MAZE Assessment: INR goal 2-3, INR 2.2 this AM Plan: Call out to PCP for outpatient INR management. Continue 2.5mg at discharge. Pain, Postoperative, Acute History: Hx of chronic back pain on narcotics. Now s/p CABG/PVI 09/21/17 Assessment: Currently controlled with current regimen. Plan: Continue lidocaine patches, PRN oxycodone/tramadol. Bowel regimen in place Stage 3 Chronic Kidney Disease (Hcc) History: Creat on admission was 1.35, Kidney u/s 09-17: no hydronephrosis Assessment: Scr at baseline (1.25), adequate UOP Plan: Avoid nephrotoxins and hypotension. Obesity, Class II, Bmi 35-39.9 History: Pre-op co-morbidity Assessment: Body mass index is 36.36 kg/m?. Plan: Nutrition services following. Diet counseling provided. 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 Assessment: HA1C 8.8 (09/15), postop hyperglycemia, Plan: Endocrine consulted and following. Continue basal, prandial insulin AND SSI for glucose control. Follow endocrine recs at discharge. Peripheral arterial disease History: S/p multiple interventions. Pt reports he can not use IPCs due to poor circulation. Assessment: Clinically stable Plan: Continue clopidogrel and statin. Follow-up outpatient. Chronic Low Back Pain History: present SHAKER OUT and takes [place] at home. Assessment: Currently controlled with oxycodone post-op. Plan: Discussed 30 MED dosing at discharge. Pt. would like to continue to Oxycodone 5mg Q6h prn. Will follow-up with PCP to discuss chronic meds for back pain. Primary Hypertension History: On Imdur 60mg, losartan 25mg, carvedilol 25mg BID, Norvasc 10mg, HCTZ 12.5mg at home. Assessment: Currently BP controlled with BB and diuretic (SBP 90-110's) Plan: Continue IV lasix and BB during hospitalization. Will have to continue to hold Norvasc, Losartan and HCTZ at discharge. Hyperlipidemia History: POA: Home med: atorvastatin, Lopid. Assessment: Component Latest Ref Rng AND Units 09/14/2017 Cholesterol, Total <200 mg/dL 123 Triglyceride <150 mg/dL 167 (H) HDL Cholesterol >39 mg/dL 34 (L) LDL Cholesterol <100 mg/dL 56 Non HDL Cholesterol <130 mg/dL 89 Fasting Time hrs Unknown VLDL Cholesterol <30 mg/dL 33 (H) TC:HDL Ratio <5.10 3.62 LDL:HDL Ratio <2.54 1.65 Plan: Continue atorvastatin. Resume Lopid at home as well. Discharge Planning Issues 61 yo male from [place], [place]. Likely d/c home today once outpatient INR management finalized and endocrine recommendations are finalized. CM following. PT rec home. No skilled needs anticipated. CTS OPD visit requested for one week. Pt. will follow-up with Dr. Wilburn in 1-2 weeks and will be establishing with Dr. 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 Anticipated Discharge Date: 09/27/17 Anticoagulation: In Process Care Management Discharge Needs: Needs Prior to Discharge: To Be Determined;OT/PT Evaluation DAILY STEP DOWN CHECKLIST FOR CATHETER RELATED INFECTION PREVENTION CVC, PICC, Anila and/or Permacath present? No Does the patient have a urinary catheter beyond POD 2? No VTE Risk Assessment: High risk VTE Mechanical and/or Pharmacologic Prophylaxis: IPC Device, GCS, Plavix, and Coumadin Labs and medications reviewed in Epic Case discussed in depth with: Dr. Berger and Dr. Gray SIGNATURE: Irma Forte APRN.CNP PATIENT NAME: Noman Stone DATE: September 27, 2017 TIME: 10:50 AM PAGER/CONTACT #: [phone] ETX#[id number] NUTRITION Observed: 09/27/2017 Status: COMPLETED Source: [place] 10:27 AM [facility] REPOSITORY O ID: [id number] Author: Linda Nino-T) Farhan Service: Nutrition Therapy Author Type: Patrol Man Type: Nutrition Filed: 09/27/2017 10:28 AM Note Text: NUTRITION THERAPY FOLLOW-UP NOTE SERVICE DATE: 09/27/2017 SERVICE TIME: 9:00 AM Anthropometrics: Height: 172.7 cm (5' 8) Current Weight: Weight: 104.5 kg (230 lb 6.4 oz) Body mass index is 35.03 kg/m?. Loss of lean body mass/visual muscle wasting: no Admitting Diagnosis: Hx of CABG [Z95.1] Atrial fibrillation, unspecified type (HCC) [I48.91] Present Diet Order: Carbohydrate Controlled, Heart Healthy 2 gm Na and Fluid restriction of 1500ml/day Is the patient having any pain that is interfering with oral/enteral intake? No Allergies: ALLERGIES Allergen Reactions - Adhesive Rash Redness to skin - Lisinopril Cough - Penicillins Unknown childhood Reason for Visit: Nutrition screen: LOS > 6 days Nutrient intake assessment: Current intake of meals: 75 - 100% Patient concerns/Issues: Patient reports that his appetite is good, appetites and intakes have been normal. Denied nausea, emesis and diarrhea. Reports constipation but has been receiving stool softeners. Declined nutritional supplements and snacks. Will continue to monitor. Nursing Admission Assessment Malnutrition Score Tool: 0 Plan of Care: Recommendation No problems noted at this time. Will screen again within 7 days Discharge Plan: Diet as ordered by Physician MNT Billing Type: Routine Care/15 min 1 unit SIGNATURE: Yee Rodriguez PATIENT NAME: Noman Stone DATE: September 27, 2017 TIME: 10:27 AM PAGER: [phone] [facility] Observed: 09/27/2017 Status: COMPLETED Source: [place] 8:50 AM [facility] REPOSITORY HNO ID: [id number] Author: Gallo Kimball (Ex Phys) Service: Cardiovascular Medicine Author Type: Web Designer Developer Type: Allied Health Filed: 09/27/2017 10:20 AM Note Text: CARDIAC REHABILITATION PHASE I FOLLOW-UP PATIENT NAME: Noman Stone SERVICE DATE: September 27, 2017 SESSION TIME: 0850 Comments: Patient amb. 1600 ft. per session in hallways yesterday without specific complaints. Progress as tolerated and outlined in provided activity guidelines. Questions regarding activity and phase 2 cardiac rehab answered to patient's satisfaction. Copy of order for outpatient cardiac rehab provided. Tolerating exercise well, continue with exercise 4 - 6 x/day. Recommend enrollment in Phase 2, Outpatient Cardiac Rehab in 4-6 weeks at local hospital program. JODI Hu Pager: [phone] September 27, 2017 CONSULT PROG Observed: 09/27/2017 Status: COMPLETED Source: [place] 8:07 AM [facility] REPOSITORY HNO ID: [id number] Author: Debi Ballard Service: Endocrinology Author Type: Nurse Practitioner Type: Consult Progress Note Filed: 09/27/2017 12:24 PM Note Text: DIABETES CARE TEAM NOTE SERVICE DATE: 09/27/2017 SERVICE TIME: 8:07 AM Subjective Summary of History from Prior Record: Consult Date:09/22/17 HPI: Mr. Noman Stone is a 61 year old male with a 8?year history of Diabetes Mellitus Type 2 hyperglycemia?who was admitted on 09/13/2017 for CABG . Past medical history significant for ?CAD (prior PCI to RCA, rPDA and LAD), PAD with prior LLE stent, HNT, HLD, DMII, ARNOLDO . Patient ?does not ?exercise. Last HbA1c was 8.8 ?on 09/15/17 .. ?He has a family history of diabetes in his maternal GF. He is followed by PCP?for his diabetes. ? ? DIABETIC COMPLICATIONS: Nephropathy: Diabetic chronic kidney disease Neuropathy: [place] ? Pre-Admission DM Regimen: Preadmission oral agents: Dulaglutide (Trulicity) 0.75 and 1.5 mg pen (once weekly) Preadmission insulin regimen: Lantus 30?units ?Q HS ? ? Self Monitoring Blood Glucose: Type of Monitor: Freestyle? Frequency of Monitoring: Three times a Day BG Values: 150-220 Hypoglycemia: Frequency:none in many months -happens INTERVAL HPI: uneventful PERTINENT ROS: Constitutional:feels tired just back from walk Appetite:Intact GI:No nausea, no vomitting, no BM yet Objective PHYSICAL EXAM: BP 135/60 Pulse 72 Temp 37.1 ?C (98.8 ?F) (Oral) Resp 20 Ht 172.7 cm (5' 8) Wt 104.5 kg (230 lb 6.4 oz) SpO2 94% BMI 35.03 kg/m? General Appearance:A+O x 3 Affect:cooperative Eyes:Sclerae non-icteric Abdomen:round Skin/Lipohypertrophy:sternal incision intact OLEG Edema:Lower extremity Laboratory Results: Glucose (mg/dL) Date Value 09/27/2017 127 Potassium (mmol/L) Date Value 09/27/2017 3.9 Sodium (mmol/L) Date Value 09/27/2017 137 Chloride (mmol/L) Date Value 09/27/2017 97 CO2 (mmol/L) Date Value 09/27/2017 30 Creatinine (mg/dL) Date Value 09/27/2017 1.25 BUN (mg/dL) Date Value 09/27/2017 23 Anion Gap (mmol/L) Date Value 09/27/2017 10 Calcium (mg/dL) Date Value 09/27/2017 9.0 ALT Date Value Ref Range Status 09/27/2017 21 10 - 54 U/L Final AST Date Value Ref Range Status 09/27/2017 16 14 - 40 U/L Final Hemoglobin (g/dL) Date Value 09/27/2017 10.8 Hematocrit (%) Date Value 09/27/2017 33.8 WBC (k/uL) Date Value 09/27/2017 8.40 Platelet Count (k/uL) Date Value 09/27/2017 238 Hemoglobin A1C (%) Date Value 09/15/2017 8.8 LV Ejection Fraction (%) Date Value 09/13/2017 60 Diet: ?Heart Healthy: Cardiac 2 GM SODIUM (<200 MG CHOL / LOW SAT FAT), Carb Control: 3--5 CARBS/MEAL (<200 MG CHOL / LOW SAT FAT) and Fluid Restriction : 1500ml daily Supplements: none ? Other Pertinent Medications: Steroids none ? Diabetes Management in Hospital Hospital ?BG values or ranges: ? Date AM LUNCH DINNER HS 3AM 09/22 168 RHI ?Lantus 25u 214(h6) 207(h6) ? ? 09/23? 190(h3) Lantus 25u ? ?225(h6) ?192(h3) 176(H2)? ?180 ?7/ 176-177(H2) NPO Lantus 25 u? 177(H2)? 149? 199(H2)? 162? ?7 156(H2) Lantus 25u? 189(H3+2) 222(H4+3)? 225(H4)? 124? 09/26 169(H5+2) Lantus 18 u 229(H5+4) 148(H5) 260(H6)? 127? 09/27 154(H8+2) Lantus 28 u ? Impression/Recommendations:? Patient with uncontrolled Diabetes Mellitus Type 2 hyperglycemia?s/p CABG ?whom we have been consulted for glycemic control. Transferred to [facility] on 08/25. BG above normal higher basal and boluses placed for today. Will monitor NBG trends on new insulin program and adjust plan as needed. Weight 104.5 kg RECOMMENDATIONS: ? ?Basal Insulin: Lantus 28 units QAM ? ?Prandial Insulin: Humalog 8 units?units AC TID ? ?Supplemental Sliding Scale: Humalog Program #2?AC AND2?HS ? ?Accuchecks: AC/HS ? ?Recommend As per Unit Dietitian ? ?Consult CDE regarding: DM Education including /TBD ? DM DISCHARGE PLAN: ? ?Lantus 30 units daily Dulaglutide (Trulicity) 0.75 and 1.5 mg pen (once weekly) And Supplemental Sliding Scale AC only Supplemental Sliding Scale: Humalog Program #2?AC only If Blood Glucose (mg/dL) is <110 Give 0 units 111-150 Give 0 units 151-200 Give 2 unit 201-250 Give 4 units 251-300 Give 6 units 301-350 Give 8 units 351-400 Give 10 units >400 Call physician. ' ? ?Check blood sugars Three times a Day? ? ?Diet: Low carbohydrate ? ?Exercise as prescribed by cardiology ? ?Follow up with cable installation technician and box office clerk as recommended. ? ?Patient will need follow-up with his home pacu nurse/PCP in 1-2 weeks after discharge. ? ?Diabetes Care Team Hospital Discharge Help Line: [phone] ? RX needed: Humalog vial, 1 vial (10ml), Epic code: [id number] (Voucher given) (pt understands it is at no charge AND should not be submitted through insurance) BD Insulin syringe ultra-fine, 0.3ml (31 x 15/64), 100/box, Epic code: [id number] SIGNATURE: Debi Ballard APRN.CNP PATIENT NAME: Noman Stone DATE: September 27, 2017 TIME: 8:07 AM PAGER/CONTACT #: [phone] CBC Collected: 09/27/2017 Status: F Source: [place] 4:02 [facility] REPOSITORY TYPE CODE TESTS RESULT OUT OF REFERENCE UNITS RANGE LAB WBC 3.70-11.00 k/uL WBC 8.40 LAB RBC 4.20-6.00 m/uL Low RBC 3.70 LAB HGB 13.0-17.0 g/dL Low Hemoglobin 10.8 LAB HCT 39.0-51.0 % Low Hematocrit 33.8 LAB MCV 80.0-100.0 fL MCV 91.4 LAB MCH 26.0-34.0 pG MCH 29.2 LAB MCHC 30.5-36.0 g/dL MCHC 32.0 LAB RDWCV 11.5-15.0 % RDW-CV 13.6 LAB PLTCT 150-400 k/uL Platelet Count 238 LAB MPV 9.0-12.7 fL MPV 9.9 LAB ABSNUC <0.01 k/uL Absolute nRBC <0.01 Performed By: #### CBC, PT, CMP #### [facility] [address] [address] PROTIME Collected: 09/27/2017 Status: F Source: [place] 4:02 [facility] REPOSITORY TYPE CODE TESTS RESULT OUT OF RANGE REFERENCE UNITS LAB PSEC 9.7-13.0 sec High PT Sec 21.6 LAB INR 0.9-1.3 High PT INR 2.2 Result Comment: Vitamin K Antagonist (VKA) Therapeutic Range: INR 2 to 3 (Target INR of 2.5) Note: For patients treated with VKA drugs, such as warfarin, the [place] [employer] 2012 Guideline recommends a therapeutic INR range of 2 to 3 (target INR of 2.5). This recommendation includes high-risk patients with antiphospholipid syndrome with previous arterial or venous thromboembolism, current-generation mechanical or bioprosthetic aortic heart valve replacement. Note: Patients with mechanical aortic valve replacement and additional risk factors for thromboembolic events (atrial fibrillation, previous thromboembolism, LV dysfunction, hypercoagulable conditions) or an older generation mechanical AVR (i.e., ball in-Cage) or any mechanical MVR should have a INR therapeutic range of 2.5 to 3.5 (target INR of 3). Bety GH, et al. Chest 2012, 141:7S-47S Joy BUSH et al. [facility] 2017, 70: 252-289 Performed By: #### CBC, PT, CMP #### [facility] [address] [place], [place] [address] COMP METABOLIC PANEL Collected: 09/27/2017 Status: F Source: [place] 4:02 AM [facility] REPOSITORY TYPE CODE TESTS RESULT OUT OF REFERENCE UNITS RANGE LAB TP 6.3-8.0 g/dL Protein, Total 6.4 LAB ALB 3.9-4.9 g/dL Low Albumin 3.0 LAB CA 8.5-10.2 mg/dL Calcium, Total 9.0 LAB TBIL 0.2-1.3 mg/dL Bilirubin, Total 0.4 LAB ALKP 36-108 U/L Low Alkaline Phosphatase 35 LAB AST 14-40 U/L AST 16 LAB GLU 74-99 mg/dL Glucose High 127 Result Comment: The [place] Diabetes Association (ADA) provides guidance for cutoff values for fasting glucose and random glucose. The ADA defines fasting as no caloric intake for at least 8 hours. Fas ting plasma glucose results between 100 to 125 mg/dL indicate increased risk for diabetes (prediabetes). Fasting plasma glucose results greater than or equal to 126 mg/dL meet the criteria for diagnosis of diabetes. In the absence of unequivocal hyperglycemia, results should be confirmed by repeat testing. In a patient with classic symptoms of hyperglycemia or hyperglycemic crisis, random plasma glucose results greater than or equal to 200 mg/dL meet the criteria for diagnosis of diabetes. Reference: Standards of Medical Care in Diabetes 2016, [place] [employer] Association. Diabetes Care. 2016.39(Suppl 1). LAB BUN 9-24 mg/dL BUN 23 LAB CRET 0.73-1.22 mg/dL Creatinine High 1.25 LAB NA 136-144 mmol/L Sodium 137 LAB K 3.7-5.1 mmol/L Potassium 3.9 LAB CL 97-105 mmol/L Chloride 97 LAB CO2 22-30 mmol/L CO2 30 LAB AGAP 9-18 mmol/L Anion Gap 10 LAB ALT 10-54 U/L ALT 21 LAB GFRAA eGFR- Amer. >60 LAB GFRNAA . eGFR-All Other Races 59 Result Comment: eGFR (Estimated GFR) Units of measure: mL/min/1.73 meters squared eGFR is derived from the reexpressed MDRD Study equation using the following parameters: serum creatinine, age, gender and race. The creatinine assay has been calibrated to be traceable to IDMS. An eGFR <60 mL/min/1.73m2 for >3 months is consistent with chronic kidney disease. Refer to KDOQI guidelines for clinical interpretation. In patients with unstable renal function, e.g. those with acute kidney injury, the eGFR may not accurately reflect actual GFR. Performed By: #### CBC, PT, CMP #### [facility] [address] [address] THERAPY NT Observed: 09/26/2017 Status: COMPLETED Source: [place] 2:27 PM [facility] REPOSITORY HNO ID: [id number] Author: Yamel Martinez (Pt) Asp Service: Physical Therapy Author Type: Physical Therapist Type: Therapy (PT/OT/Speech/Resp) Filed: 09/26/2017 2:29 PM Note Text: Physical Therapy Evaluation SERVICE DATE: 09/26/2017 SERVICE TIME: 1350 to 1405 ROOM: [place] [address] Recommended Discharge Disposition: Home Recommended Discharge Disposition Comments: Outpatient cardiac rehab when cleared by MD PT Recommendations to Nursing: In halls;With assist of 1 person PT 6 Clicks Score: 24 Precautions/Activity Restrictions: Sternal ASSESSMENT : Patient presents with decreased activity tolerance following cardiac surgery. Patient currently requires stand by assist, at baseline he states he is independent. Anticipate patient will continue to progress well with cardiac rehab in house and is safe to DC home with no skilled PT needs. Patient Disposition at Start of Session: Supine in Bed Patient Disposition at End of Session: OOB in Chair;Call Taylor in Reach Tolerated Full Session Physical Therapy Problem List: Decreased Activity Tolerance Patient /Caregiver Goals: Go Home Rehab Potential: Excellent PLAN: Treatment Frequency (times per week): Discontinue Therapy Services Reasons Therapy Services Discontinued: No skilled needs Plan of Care developed with: Patient TREATMENT INTERVENTIONS: Therapy Diagnosis: Reduced mobility-other Interventions Provided: Evaluation $ Evaluation-Low (73331) Billed Units: 1 unit Patient was educated on the role of PT, POC, and DC Planning. Vital signs and symptoms monitored throughout the session. Verbal education was given: sternal precautions, RPE scale, pursed lip breathing, energy conservation, bed mobility, and how to safely progress ambulation. Total Treatment Time (minutes): 15 FUNCTIONAL G CODE: PT 6 Clicks Score: 24 (09/26/17 1350) Mobility: Walking and Moving Around Current Status (G8978): (09/26/17 1350) Mobility: Walking and Moving Around Goal Status (G8979): (09/26/17 1350) Mobility: Walking and Moving Around Discharge Status (G8980): (09/26/17 1350) Based on clinical assessment and the score on the 6 Clicks Functional Assessment Tool, the G code and corresponding severity modifiers are documented above. SUBJECTIVE: Current Hospital Course: Chart reviewed; 61 year old male s/p CABG x 5 Reason for Physical Therapy Consult : s/p CABG x 5 PAST MEDICAL HISTORY Diagnosis Date - Acute renal failure (HCC) - CAD (coronary artery disease) - Diabetes mellitus ([facility]) 11/17/2010 - Essential hypertension, benign - GERD (gastroesophageal reflux disease) 11/17/2010 - H/O percutaneous transluminal coronary angioplasty - Hyperlipidemia - Low testosterone 12/12/2011 - Other and unspecified hyperlipidemia - PAD (peripheral artery disease) ([facility]) - Paroxysmal atrial fibrillation ([facility]) - Raynaud's syndrome - Shift work sleep disorder 05/03/2015 - Type 2 diabetes mellitus with stage 3 chronic kidney disease, with long-term current use of insulin ([facility]) 12/09/2015 - Type II or unspecified type diabetes mellitus with peripheral circulatory disorders, uncontrolled(250.72) 08/28/2013 Patient Report: Agreeable to PT session, Home Environment Patient Lives With: Significant Other Entry To Home: Stairs Number Of Stairs Into Home: 2 Number Of Stairs To Bed/Bath: 0 Equipment Owned: Cane Prior Functional Level: Within Functional Limits OBJECTIVE: CURRENT FUNCTIONAL STATUS: Current Functional Mobility Assist Level Additional Information Rolling Supine to Sit Stand By Assistance Sit to Supine Scooting Stand By Assistance Sit to Stand Stand By Assistance Stand to Sit Stand By Assistance Bed to Chair Toilet/Commode Gait Stand By Assistance Gait Device: None Gait Distance (feet): 150 feet Stairs Curb Step Car Transfer General Gait Deviations: Flakita decreased;Lateral sway increased Please see discipline specific clinical documentation flowsheet for complete details for this therapy evaluation/treatment. SIGNATURE: Yamel Martinez Asp PT PATIENT NAME: Noman Stone DATE: September 26, 2017 TIME: 2:27 PM PAGER/CONTACT #: [phone] PROGRESS Observed: 09/26/2017 Status: COMPLETED Source: [place] 1:00 PM [facility] REPOSITORY HNO ID: [id number] Author: Javi Rich) MD Stanley Service: Cardiac Surgery Author Type: Physician Type: Progress Notes Filed: 09/26/2017 1:01 PM Note Text: [facility] POSTOP PROGRESS NOTE Day of Surgery:09/21/2017 S/P SURGERY: CABG x5 (MANCERA-LAD, SVG-D, SVG-OM, SVG-PDA-PLV), LAAL, PVI INTERVAL EVENTS / PERTINENT ROS: No acute events Rhythm: Sinus Intake/Output Summary (Last 24 hours) at 09/26/17 1300 Last data filed at 09/26/17 0837 Gross per 24 hour Intake 480 ml Output 0 ml Net 480 ml EKG: most recent image reviewed TELE: most recent recordings reviewed CXR: most recent image reviewed Echocardiogram: most recent image reviewed PHYSICAL EXAM: BP 98/58 Pulse 80 Temp 36.7 ?C (98.1 ?F) (Oral) Resp 18 Ht 172.7 cm (5' 8) Wt 105 kg (231 lb 7.7 oz) SpO2 92% BMI 35.20 kg/m? Neuro: AANDO x 3 moves all extremities with no apparent weakness CV: no jugular venous distention Heart Exam: RRR without murmur, gallop, or rubs. No ectopy. Resp: fine crackles on left base and diminished breath sounds Abd: soft, nontender, nondistended; BS normal; no masses or organomegaly noted. Skin: Skin color, texture, turgor normal, no suspicious rashes or lesions Ext: Trace edema Surgical incisions: clean, dry and intact Chest tube: No Pacer wires: No HISTORY, ASSESSMENT AND PLAN: Problem Summary Indication for Surgery: CAD LVEF: 60%, concentric LVH RVF: Mild Important/Relevant PMH/PSH: CAD (prior PCI to RCA, rPDA and LAD), PAD with prior LLE stent, HNT, HLD, DMII, ARNOLDO Preoperative Hospital Course (narrative): 61M with CAD (prior PCI to RCA, rPDA and LAD), PAD with prior LLE stent, HNT, HLD, DMII, ARNOLDO who presents with severe 3v CAD here for consideration of CABG. He describes slowly progressive angina over the last several months. Despite presenting with AF with slow ventricular response, he spontaneously cardioverted to sinus rhythm with normal HR (70s). Reasonable to consider CABG with MAZE and possible SHAD exclusion. Procedure/Surgeries: 09/21/2017 CABG x5 (MANCERA-LAD, SVG-D, SVG-OM, SVG-PDA-PLV), LAAL, PVI Airway Difficulty: Grade I - No special instrumentation OR Course: 2 pump runs, htn Pacing wires: No, CUT on 09/26 Postoperative Course/General Impression: (narrative or log of major events with date of onset): Arrived to ICU intubated and sedated. Requiring ntg drip for htn. Extubated NOS. 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 Continue diuresis. ST changes on ECG, trended troponin AND ECG>pericarditis Issues to communicate at signout: CT reomved and TPW CUT - CAD: hx of PCI (RCA, rPDA and LAD), s/p 09/21/2017 CABG x5 (MANCERA-LAD, SVG-D, SVG-OM, SVG-PDA-PLV), LAAL, PVI, on Plavix, BB and statin - Hx of AF with slow ventricular response, spontaneously cardioverted to sinus rhythm with normal HR (70s). Daily dose warfarin - HTN: BP controlled on BB and diuretic - DM: HA1C 8.8, endo consulted and following - PAD with prior LLE stent - Atelectasis Discharge in 1-2 days Discharge Planning: Anticipated Discharge Date: Unknown Unknown Care Management Discharge Needs: Needs Prior to Discharge: To Be Determined A-Fib (Hcc) History: hx of afib not on AC preop Assessment: s/p 09/21/2017 s/p PVI, LAAE, converted to sinus and remaining Plan: Continue BB and.Coumadin daily dose Cad (Coronary Artery Disease) History: s/p ELZA to rRCA 2.5x28mm Promus Premier EES on 02/11/15 c/b dissection during cath not amenable to corrective intervention. 09/11/2016 Developed palpitations, CE negative, Abnormal stress test. LHC at [facility] showed triple vessel disease. Transferred to [facility] for CABG eval. Last dose of Plavix 09/11/2016 Assessment: s/p 09/21/2017 CABG x5 (MANCERA-LAD, SVG-D, SVG-OM, SVG-PDA-PLV), LAAL, PVI Plan CAD Core Measures: Aspirin: Yes plus Plavix Beta blockers: Yes Statins: Yes Atelectasis - Post-operative atelectasis on CXR - Now on RA - Encourge. OOB, PEP and optimize pain control. Peripheral arterial disease History: S/p multiple interventions. Pt reports he can not use IPCs due to poor circulation. Assessment: Clinically stable Plan: Continue clopidogrel and statin Primary Hypertension History: On Imdur 60mg, losartan 25mg, carvedilol 25mg BID, Norvasc 10mg., HCTZ 12.5mg at home. Assessment: Currently BP controlled with BB and diuretic Plan: Con't current regimen, monitor and titrate as needed Pain, Postoperative, Acute - Hx of chronic back pain on narcotics - Post op acute pain - Currently pain controlled with lidocaine patches, PRN oxycodone/tramadol. - Bowel regimen in place Diabetes Mellitus Type 2 With Peripheral Artery Disease (Hcc) History: on Januvia, glimepiride, metformin and lantus at home. Assessment: HA1C 8.8 (09/15), postop hyperglycemia, Plan: Endocrine consulted and following. Continue basal, prandial insulin AND SSI for glucose control Stage 3 Chronic Kidney Disease (Hcc) History: Creat on admission was 1.35, Kidney u/s -25: no hydronephrosis Assessment: Scr at baseline, adequate UOP Plan: Avoid nephrotoxins and hypotension. Anticoagulation Management Encounter - On AC due to hx of Afib s/p CHETAN FRAZIER - INR goal 2-3, INR 2.1 this AM - Daily dose of warfarin per INR DAILY STEP DOWN CHECKLIST FOR CATHETER RELATED INFECTION PREVENTION CVC, PICC, Anila and/or Permacath present? No Does the patient have a urinary catheter beyond POD 2? No VTE Risk Assessment: High risk VTE Mechanical and/or Pharmacologic Prophylaxis: IPC Device and Subcutaneous Heparin Labs and medications [facility] SIGNATURE: Javi Angel MD PhD PATIENT NAME: Noman Stone DATE: September 26, 2017 TIME: 1:00 PM PAGER/CONTACT #: [phone] PROCEDURE Observed: 09/26/2017 Status: COMPLETED Source: [place] 12:55 PM [facility] REPOSITORY HNO ID: [id number] Author: Javi Angel MD Service: Cardiac Surgery Author Type: Physician Type: Procedures Filed: 09/26/2017 12:55 PM Note Text: Platelet Count 194 09/26/2017 Platelet Count 181 09/25/2017 Platelet Count 144 09/24/2017 Platelet Count 124 09/23/2017 PT INR 2.1 09/26/2017 PT INR 2.4 09/25/2017 PT INR 1.5 09/24/2017 PT INR 1.2 09/23/2017 rhythm normal sinus rhythm 2 atrial wires were discontinued without difficulty CUT 2 ventricular wires were discontinued without difficulty CUT Mr. Noman Stone and bedside RN aware of 30 min bedrest restriction Javi Angel MD PhD NURSING PROG Observed: 09/26/2017 Status: COMPLETED Source: [place] 12:19 PM [facility] REPOSITORY HNO ID: [id number] Author: Juana Flores) Sandie, GENIA Service: (none) Author Type: Registered Nurse Type: Nursing Progress Note Filed: 09/26/2017 12:20 PM Note Text: Nursing Progress Note Patient Name: Noman Stone Patient Location: [place] [address] Daily Note:TPMW removal PMW d/c @1155 (CUT) by Laura JAEGER . [facility] notified. Tele SR. VSS. Patient instructed on 30 minute bedrest. PMW site dry and intact. Vital signs per protocol. This note was completed by: Juana Hooper, RN [facility] Observed: 09/26/2017 Status: COMPLETED Source: [place] 10:20 AM [facility] REPOSITORY HNO ID: [id number] Author: Gallo Kimball (Ex Phys) Service: Cardiovascular Medicine Author Type: Web Designer Developer Type: Allied Health Filed: 09/26/2017 12:20 PM Note Text: CARDIAC REHABILITATION PHASE I FOLLOW-UP PATIENT NAME: Noman Stone SERVICE DATE: September 26, 2017 SESSION TIME: 1020 Comments: Patient amb. 200 ft. + indep. in hallways yesterday without specific complaints. Progress as tolerated and outlined in provided activity guidelines. Questions regarding activity and phase 2 cardiac rehab answered to patient's satisfaction. Copy of order for outpatient cardiac rehab provided. Tolerating exercise well, continue with exercise 4 - 6 x/day. Recommend enrollment in Phase 2, Outpatient Cardiac Rehab in 4-6 weeks at local hospital program. Home Program: Reviewed Home Activity Guidelines as outlined in Your Guide to Cardiac Surgery binder. Frequency: 4 - 6 days/week Intensity: 3 - 4/10 RPE Type: walking - start at 3 - 5 minutes/4 - 6 x day Duration: 20 - 30 minutes -----> 45 + minutes JODI Hu Pager: [phone] September 26, 2017 CONSULT PROG Observed: 09/26/2017 Status: COMPLETED Source: [place] 8:21 AM [facility] [place] REPOSITORY [facility] ID: [id number] Author: Debi Ballard Service: Endocrinology Author Type: Nurse Practitioner Type: Consult Progress Note Filed: 09/26/2017 6:12 PM Note Text: DIABETES CARE TEAM NOTE SERVICE DATE: 09/26/2017 SERVICE TIME: 8:21 AM Subjective Summary of History from Prior Record: Consult Date:09/22/17 HPI: Mr. Noman Stone is a 61 year old male with a 8?year history of Diabetes Mellitus Type 2 hyperglycemia?who was admitted on 09/13/2017 for CABG . Past medical history significant for ?CAD (prior PCI to RCA, rPDA and LAD), PAD with prior LLE stent, HNT, HLD, DMII, ARNOLDO . Patient ?does not ?exercise. Last HbA1c was 8.8 ?on 09/15/17 .. ?He has a family history of diabetes in his maternal GF. He is followed by PCP?for his diabetes. ? ? DIABETIC COMPLICATIONS: Nephropathy: Diabetic chronic kidney disease Neuropathy: [place] ? Pre-Admission DM Regimen: Preadmission oral agents: Dulaglutide (Trulicity) 0.75 and 1.5 mg pen (once weekly) Preadmission insulin regimen: Lantus 30?units ?Q HS ? ? Self Monitoring Blood Glucose: Type of Monitor: Freestyle? Frequency of Monitoring: Three times a Day BG Values: 150-220 Hypoglycemia: Frequency:none in many months -happens INTERVAL HPI: Uneventful just had wires removed PERTINENT ROS: Constitutional:Feels well, no complaints Appetite:Intact GI:No nausea, no vomitting, no diarrhea, no constipation Objective PHYSICAL EXAM: BP 106/59 Pulse 75 Temp 37.1 ?C (98.7 ?F) (Oral) Resp 16 Ht 172.7 cm (5' 8) Wt 105 kg (231 lb 7.7 oz) SpO2 94% BMI 35.20 kg/m? General Appearance:A+O x 3 and In no apparent distress Affect:Pleasant and cooperative Eyes:Sclerae non-icteric Abdomen:round Skin/Lipohypertrophy:no cyanosis Laboratory Results: Glucose (mg/dL) Date Value 09/26/2017 124 Potassium (mmol/L) Date Value 09/26/2017 3.9 Sodium (mmol/L) Date Value 09/26/2017 135 Chloride (mmol/L) Date Value 09/26/2017 96 CO2 (mmol/L) Date Value 09/26/2017 32 Creatinine (mg/dL) Date Value 09/26/2017 1.20 BUN (mg/dL) Date Value 09/26/2017 23 Anion Gap (mmol/L) Date Value 09/26/2017 7 Calcium (mg/dL) Date Value 09/26/2017 8.8 ALT Date Value Ref Range Status 09/26/2017 17 10 - 54 U/L Final AST Date Value Ref Range Status 09/26/2017 11 (L) 14 - 40 U/L Final Hemoglobin (g/dL) Date Value 09/26/2017 10.6 Hematocrit (%) Date Value 09/26/2017 32.7 WBC (k/uL) Date Value 09/26/2017 8.15 Platelet Count (k/uL) Date Value 09/26/2017 194 Hemoglobin A1C (%) Date Value 09/15/2017 8.8 LV Ejection Fraction (%) Date Value 09/13/2017 60 Diet: Heart Healthy: Cardiac 2 GM SODIUM (<200 MG CHOL / LOW SAT FAT), Carb Control: 3--5 CARBS/MEAL (<200 MG CHOL / LOW SAT FAT) and Fluid Restriction : 1500ml daily Supplements: none ? Other Pertinent Medications: Steroids none ? Diabetes Management in Hospital Hospital ?BG values or ranges: ? Date AM LUNCH DINNER HS 3AM 09/22 168 RHI ?Lantus 25u 214(h6) 207(h6) ? ? 7? 190(h3) Lantus 25u ? ?225(h6) ?192(h3) 176(H2)? ?180 ?7 176-177(H2) NPO Lantus 25 u? 177(H2)? 149? 199(H2)? 162? ?09/25 156(H2) Lantus 25u? 189(H3+2) 222(H4+3)? 225(H4)? 124? 09/26 169(H5+2) Lantus 18 u 229(H5+4) 148(H5) ? Impression/Recommendations:? Patient with uncontrolled Diabetes Mellitus Type 2 hyperglycemia?s/p CABG ?whom we have been consulted for glycemic control. Transferred to [facility] on 08/25. Po intake improved and BG above normal, will adjust basal and boluses. Will follow. 12:29 PM BG high will increase H to 7 with [place]. Debi Ballard APRN.ASSISTANT STRENGTH COACH RECOMMENDATIONS: ? ?Basal Insulin: Lantus 28?units QAM ? ?Prandial Insulin: Humalog 5 units?units AC TID ? ?Supplemental Sliding Scale: Humalog Program #2?AC AND2?HS ? ?Accuchecks: AC/HS ? ?Recommend As per Unit Dietitian ? ?Consult CDE regarding: DM Education including /TBD ? DM DISCHARGE PLAN: ? ?To be decided based on clinical course. ? ?Check blood sugars Three times a Day? ? ?Diet: Low carbohydrate ? ?Exercise as prescribed by cardiology ? ?Follow up with cable installation technician and box office clerk as recommended. ? ?Patient will need [facility] at [facility] ([facility]) or with his home pacu nurse/PCP in 1-2 weeks after discharge. ? ?Diabetes Care Team Hospital Discharge Help Line: [phone] ? SIGNATURE: Debi Ballard APRN.CNP PATIENT NAME: Noman Stone DATE: September 26, 2017 TIME: 8:21 AM PAGER/CONTACT #: [phone] CBC Collected: 09/26/2017 Status: F Source: [place] 3:15 AM [facility] REPOSITORY TYPE CODE TESTS RESULT OUT OF REFERENCE UNITS RANGE LAB WBC 3.70-11.00 k/uL WBC 8.15 LAB RBC 4.20-6.00 m/uL Low RBC 3.60 LAB HGB 13.0-17.0 g/dL Low Hemoglobin 10.6 LAB HCT 39.0-51.0 % Low Hematocrit 32.7 LAB MCV 80.0-100.0 fL MCV 90.8 LAB MCH 26.0-34.0 pG MCH 29.4 LAB MCHC 30.5-36.0 g/dL MCHC 32.4 LAB RDWCV 11.5-15.0 % RDW-CV 13.6 LAB PLTCT 150-400 k/uL Platelet Count 194 LAB MPV 9.0-12.7 fL MPV 9.8 LAB ABSNUC <0.01 k/uL Absolute nRBC <0.01 Performed By: #### CBC, PT, CMP #### [facility] [address], [place] [address] PROTIME Collected: 09/26/2017 Status: F Source: [place] 3:15 AM [facility] REPOSITORY TYPE CODE TESTS RESULT OUT OF RANGE REFERENCE UNITS LAB PSEC 9.7-13.0 sec High PT Sec 21.0 LAB INR 0.9-1.3 High PT INR 2.1 Result Comment: Vitamin K Antagonist (VKA) Therapeutic Range: INR 2 to 3 (Target INR of 2.5) Note: For patients treated with VKA drugs, such as warfarin, the [place] [employer] 2012 Guideline recommends a therapeutic INR range of 2 to 3 (target INR of 2.5). This recommendation includes high-risk patients with antiphospholipid syndrome with previous arterial or venous thromboembolism, current-generation mechanical or bioprosthetic aortic heart valve replacement. Note: Patients with mechanical aortic valve replacement and additional risk factors for thromboembolic events (atrial fibrillation, previous thromboembolism, LV dysfunction, hypercoagulable conditions) or an older generation mechanical AVR (i.e., ball in-Cage) or any mechanical MVR should have a INR therapeutic range of 2.5 to 3.5 (target INR of 3). Bety GH, et al. Chest 2012, 141:7S-47S Joy RA, et al. [facility] 2017, 70: 252-289 Performed By: #### CBC, PT, CMP #### [facility] [address] [address] COMP METABOLIC PANEL Collected: 09/26/2017 Status: F Source: [place] 3:15 AM [facility] REPOSITORY TYPE CODE TESTS RESULT OUT OF REFERENCE UNITS RANGE LAB TP 6.3-8.0 g/dL Low Protein, Total 6.1 LAB ALB 3.9-4.9 g/dL Low Albumin 2.8 LAB CA 8.5-10.2 mg/dL Calcium, Total 8.8 LAB TBIL 0.2-1.3 mg/dL Bilirubin, Total 0.5 LAB ALKP 36-108 U/L Low Alkaline Phosphatase 34 LAB AST 14-40 U/L Low AST 11 LAB GLU 74-99 mg/dL Glucose High 124 Result Comment: The [place] Diabetes Association (ADA) provides guidance for cutoff values for fasting glucose and random glucose. The ADA defines fasting as no caloric intake for at least 8 hours. Fas ting plasma glucose results between 100 to 125 mg/dL indicate increased risk for diabetes (prediabetes). Fasting plasma glucose results greater than or equal to 126 mg/dL meet the criteria for diagnosis of diabetes. In the absence of unequivocal hyperglycemia, results should be confirmed by repeat testing. In a patient with classic symptoms of hyperglycemia or hyperglycemic crisis, random plasma glucose results greater than or equal to 200 mg/dL meet the criteria for diagnosis of diabetes. Reference: Standards of Medical Care in Diabetes 2016, [place] [employer] Association. Diabetes Care. 2016.39(Suppl 1). LAB BUN 9-24 mg/dL BUN 23 LAB CRET 0.73-1.22 mg/dL Creatinine 1.20 LAB NA 136-144 mmol/L Low Sodium 135 LAB K 3.7-5.1 mmol/L Potassium 3.9 LAB CL 97-105 mmol/L Low Chloride 96 LAB CO2 22-30 mmol/L CO2 High 32 LAB AGAP 9-18 mmol/L Low Anion Gap 7 LAB ALT 10-54 U/L ALT 17 LAB GFRAA eGFR- Amer. >60 LAB GFRNAA . eGFR-All Other Races >60 Result Comment: eGFR (Estimated GFR) Units of measure: mL/min/1.73 meters squared eGFR is derived from the reexpressed MDRD Study equation using the following parameters: serum creatinine, age, gender and race. The creatinine assay has been calibrated to be traceable to IDMS. An eGFR <60 mL/min/1.73m2 for >3 months is consistent with chronic kidney disease. Refer to KDOQI guidelines for clinical interpretation. In patients with unstable renal function, e.g. those with acute kidney injury, the eGFR may not accurately reflect actual GFR. Performed By: #### CBC, PT, CMP #### [facility] [address] [address] PROGRESS Observed: 09/25/2017 Status: COMPLETED Source: [place] 1:30 PM [facility] REPOSITORY HNO ID: [id number] Author: Javi Rich) MD Stanley Service: Cardiac Surgery Author Type: Physician Type: Progress Notes Filed: 09/25/2017 1:33 PM Note Text: [facility] POSTOP PROGRESS NOTE Day of Surgery:09/21/2017 S/P SURGERY: CABG x5 (MANCERA-LAD, SVG-D, SVG-OM, SVG-PDA-PLV), LAAL, PVI INTERVAL EVENTS / PERTINENT ROS: New admission from CV -ICU, overnight HD stable, afebrile, pain controlled INR 2.4, HH stable Rhythm: Sinus Intake/Output Summary (Last 24 hours) at 09/25/17 1333 Last data filed at 09/25/17 0900 Gross per 24 hour Intake 1129.5 ml Output 2086 ml Net -956.5 ml EKG: most recent image reviewed TELE: most recent recordings reviewed CXR: most recent image reviewed Echocardiogram: most recent image reviewed PHYSICAL EXAM: BP 106/58 Pulse 78 Temp 36.8 ?C (98.3 ?F) (Oral) Resp 18 Ht 172.7 cm (5' 8) Wt 103.3 kg (227 lb 12.8 oz) SpO2 93% BMI 34.64 kg/m? Neuro: AANDO x 3 moves all extremities with no apparent weakness CV: no jugular venous distention Heart Exam: RRR without murmur, gallop, or rubs. No ectopy. Resp: fine crackles on left base and diminished breath sounds Abd: soft, nontender, nondistended; BS normal; no masses or organomegaly noted. Skin: Skin color, texture, turgor normal, no suspicious rashes or lesions Ext: Trace edema Surgical incisions: clean, dry and intact Chest tube: No Pacer wires: Yes, grounded HISTORY, ASSESSMENT AND PLAN: Problem Summary Indication for Surgery: CAD LVEF: 60%, concentric LVH RVF: Mild Important/Relevant PMH/PSH: CAD (prior PCI to RCA, rPDA and LAD), PAD with prior LLE stent, HNT, HLD, DMII, ARNOLDO Preoperative Hospital Course (narrative): 61M with CAD (prior PCI to RCA, rPDA and LAD), PAD with prior LLE stent, HNT, HLD, DMII, ARNOLDO who presents with severe 3v CAD here for consideration of CABG. He describes slowly progressive angina over the last several months. Despite presenting with AF with slow ventricular response, he spontaneously cardioverted to sinus rhythm with normal HR (70s). Reasonable to consider CABG with MAZE and possible SHAD exclusion. Procedure/Surgeries: 09/21/2017 CABG x5 (MANCERA-LAD, SVG-D, SVG-OM, SVG-PDA-PLV), LAAL, PVI Airway Difficulty: Grade I - No special instrumentation OR Course: 2 pump runs, htn Pacing wires: Yes: Atrial and Ventricular: When discontinuing pacing wires: Pull all pacing wires Postoperative Course/General Impression: (narrative or log of major events with date of onset): Arrived to ICU intubated and sedated. Requiring ntg drip for htn. Extubated NOS. 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 Continue diuresis. ST changes on ECG, trended troponin AND ECG>pericarditis Issues to communicate at signout: - CAD: hx of PCI (RCA, rPDA and LAD), s/p 09/21/2017 CABG x5 (MANCERA-LAD, SVG-D, SVG-OM, SVG-PDA-PLV), LAAL, PVI, on ASA/Plavix, BB and statin - Hx of AF with slow ventricular response, spontaneously cardioverted to sinus rhythm with normal HR (70s). Daily dose warfarin - HTN: BP controlled on BB and diuretic - DM: HA1C 8.8, endo consulted and following - PAD with prior LLE stent - Atelectasis Discharge Planning: Anticipated Discharge Date: Unknown Unknown Care Management Discharge Needs: Needs Prior to Discharge: To Be Determined A-Fib (Hcc) History: hx of afib not on AC preop Assessment: s/p 09/21/2017 s/p PVI, LAAE, converted to sinus and remaining Plan: Continue BB and.Coumadin daily dose Cad (Coronary Artery Disease) History: s/p ELZA to rRCA 2.5x28mm Promus Premier EES on 02/11/15 c/b dissection during cath not amenable to corrective intervention. 09/11/2016 Developed palpitations, CE negative, Abnormal stress test. LHC at [facility] showed triple vessel disease. Transferred to [facility] for CABG eval. Last dose of Plavix 09/11/2016 Assessment: 09/21/2017 CABG x5 (MANCERA-LAD, SVG-D, SVG-OM, SVG-PDA-PLV), LAAL, PVI Plan CAD Core Measures: Aspirin: Yes plus Plavix Beta blockers: Yes Statins: Yes Atelectasis - Post-operative atelectasis on CXR - Now on RA - Encourge. OOB, PEP and optimize pain control. Peripheral arterial disease History: S/p multiple interventions. Pt reports he can not use IPCs due to poor circulation. Assessment: Clinically stable Plan: Continue ASA and clopidogrel. Primary Hypertension History: On Imdur 60mg, losartan 25mg, carvedilol 25mg BID, Norvasc 10mg., HCTZ 12.5mg at home. Assessment: Currently BP controlled with BB and diuretic Plan: Con't current regimen, monitor and titrate as needed Pain, Postoperative, Acute - Hx of chronic back pain on narcotics - Post op acute pain - Currently pain controlled with lidocaine patches, dilaudid SILK WORKER, and PRN oxycodone. 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 Assessment: HA1C 8.8 (09/15), postop hyperglycemia, Plan: Endocrine consulted and following. Continue basal, prandial insulin AND SSI for glucose control Stage 3 Chronic Kidney Disease (Hcc) History: Creat on admission was 1.35, Kidney u/s 6-25: no hydronephrosis Assessment: Scr at baseline, adequate UOP Plan: Avoid nephrotoxins and hypotension. Discharge Planning Issues 61yo man from [facility]. PT eval for discharge needs Anticoagulation Management Encounter - On AC due to hx of Afib s/p LAAZ, MAZE - INR goal 2-3 - Daily dose of warfarin per INR DAILY STEP DOWN CHECKLIST FOR CATHETER RELATED INFECTION PREVENTION CVC, PICC, Anila and/or Permacath present? No Does the patient have a urinary catheter beyond POD 2? No VTE Risk Assessment: High risk VTE Mechanical and/or Pharmacologic Prophylaxis: IPC Device Labs and medications [facility] SIGNATURE: Javi Angel MD PhD PATIENT NAME: Noman Stone DATE: September 25, 2017 TIME: 1:30 PM PAGER/CONTACT #: [phone] ALLIED HEALTH Observed: 09/25/2017 Status: COMPLETED Source: [place] 1:00 PM [facility] [place] REPOSITORY [facility] ID: [id number] Author: Aguilar (Ex Melissa Conde Service: Cardiovascular Medicine Author Type: Web Designer Developer Type: Allied Health Filed: 09/25/2017 1:05 PM Note Text: CARDIAC REHABILITATION PHASE I ASSESSMENT PATIENT NAME: Noman Stone SERVICE DATE: September 25, 2017 SESSION TIME: 12:36pm BP HR SpO2 % Flow/Rate L/min Pain (0-10) Supine N/A N/A N/A N/A N/A N/A Seated (edge of bed > 30 sec) Yes 107/57 78 94% 2L 2 incision Sit --> Stand (stand unassisted > 30 sec) No N/A 80 N/A RA (No O2 during ambulation) 3 incision Ambulation (>10? unassisted) No 121/66 79 99% RA (No O2 during ambulation) 3 incision Post N/A N/A 74 N/A 2L 5 incision Pre-Exercise Assessment 1. Ankle Pumps x 5: Left - Yes Right - Yes 2. Point Pain in Calf: Left - No Right - No 3. Dorsiflex: Left - Yes Right - Yes 4. Overhead Reach x 3: Left - Yes Right - Yes 5. Unstable Sternum: No 6. Shoulder Pain: Left - No Right - No Exercise Distance: ~ 172 feet Duration: 2-3 minutes Assistance: Standby supervision Device: IV pole RECOMMENDATIONS: Ambulate: with supervision Oxygen: with O2 2L Assist Device: yes - IV pole / prn / wheeled walker COMMENTS: Pt was resting in chair upon arrival to room. Pt was willing to participate in activity. Pt tolerated activity well and was steady while ambulating ~ 172 feet with wheeled walker and SBA. No O2 was used during ambulation and pt tolerated well with no SOB reported. Pt back on O2 upon completion of ambulation. Pt had no complaints at this time. Instructed on continued increased ambulation as tolerated 4-6 times per day. Reviewed signs and symptoms of exercise intolerance. Aguilar Conde, Ex Phys Phone: [phone] September 25, 2017 1:00 PM NURSING PROG Observed: 09/25/2017 Status: COMPLETED Source: [place] 11:20 AM [facility] REPOSITORY HNO ID: [id number] Author: Juana (Rn) GENIA Hooper Service: (none) Author Type: Registered Nurse Type: Nursing Progress Note Filed: 09/25/2017 11:21 AM Note Text: Nursing Progress Note Patient Name: Noman Stone Patient Location: [place] [id number] Daily Note: IPC/YASMANY HOSE refusal Patient refusing to wear IPC/YASMANY hose. Primary team aware. Will continue to encourage and educate patient on risks/benefits This note was completed by: Juana Hooper RN XR CHEST 2V FRONTAL/LAT Observed: 09/25/2017 Status: F Source: [place] 11:14 AM [facility] REPOSITORY * * *Final Report* * * DATE OF EXAM: Sep 25 2017 11:14AM SHADI [id number] - XR CHEST 2V FRONTAL/LAT / PROCEDURE REASON: Atelectasis * * * * Physician Interpretation * * * * EXAMINATION: CHEST RADIOGRAPH (2 VIEW FRONTAL and LATERAL) Clinical History: Atelectasis MQ: XC2_5 Comparison: 09/24/2017 RESULT: Lines, tubes, and devices: Patient is status post median sternotomy. Few retained epicardial pacer leads are present. Interval removal of right IJ CVC and mediastinal drain. Lungs and pleura: There is mild eventration of the right hemidiaphragm. Small bilateral pleural effusions are present with bibasilar atelectasis. No interstitial edema or pneumothorax is noted. Cardiomediastinal silhouette: The cardiomediastinal silhouette is mildly enlarged. Other: Endplate degenerative changes are present in the thoracic spine. IMPRESSION: Please see body of the report. 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: PSCElza Transcribe Date/Time: Sep 25 2017 11:23A Dictated by : KIRSTY CASTILLO MD This examination was interpreted and the report reviewed and electronically signed by: KIRSTY CASTILLO MD on Sep 25 2017 11:24AM EST [id number] PROGRESS Observed: 09/25/2017 Status: COMPLETED Source: [place] 11:12 AM [facility] REPOSITORY HNO ID: [id number] Author: Jovan Warner Rt Service: (none) Author Type: (none) Type: Progress Notes Filed: 09/25/2017 11:12 AM Note Text: Radiology Service Progress Note PATIENT NAME: Noman Stone DATE OF SERVICE: September 25, 2017 TIME: 11:12 AM PATIENT IDENTITY VERIFICATION COMPLETED USING TWO (2) METHODS: Patient confirmed name verbally and ID band matches.. PATIENT GENDER DATA: Male PATIENT RELEVANT IMPLANT DATA REVIEWED: Not Applicable RADIOLOGY DEPARTMENT: General X-ray: Exam(s) Completed: Chest X-Ray PERIPHERAL IV DATA: Not applicable SIGNED BY: Jovan Yang September 25, 2017 11:12 AM CONSULT PROG Observed: 09/25/2017 Status: COMPLETED Source: [place] 10:30 AM [facility] REPOSITORY HNO ID: [id number] Author: Debi (Silvina) Nellie Service: Endocrinology Author Type: Nurse Practitioner Type: Consult Progress Note Filed: 09/25/2017 5:45 PM Note Text: DIABETES CARE TEAM NOTE SERVICE DATE: 09/25/2017 SERVICE TIME: 10:30 AM Subjective Summary of History from Prior Record: Consult Date:09/22/17 HPI: Mr. Noman Stone is a 61 year old male with a 8?year history of Diabetes Mellitus Type 2 hyperglycemia?who was admitted on 09/13/2017 for CABG . Past medical history significant for ?CAD (prior PCI to RCA, rPDA and LAD), PAD with prior LLE stent, HNT, HLD, DMII, ARNOLDO . Patient ?does not ?exercise. Last HbA1c was 8.8 ?on 09/15/17 .. ?He has a family history of diabetes in his maternal GF. He is followed by PCP?for his diabetes. ? ? DIABETIC COMPLICATIONS: Nephropathy: Diabetic chronic kidney disease Neuropathy: [facility] ? Pre-Admission DM Regimen: Preadmission oral agents: Dulaglutide (Trulicity) 0.75 and 1.5 mg pen (once weekly) Preadmission insulin regimen: Lantus 30?units ?Q HS ? ? Self Monitoring Blood Glucose: Type of Monitor: Freestyle? Frequency of Monitoring: Three times a Day BG Values: 150-220 Hypoglycemia: Frequency:none in many months -happens ? INTERVAL HPI: uneventful PERTINENT ROS: Constitutional:sleeping in recliner Appetite:Intact GI:no N/V Objective PHYSICAL EXAM: BP 106/58 Pulse 78 Temp 36.8 ?C (98.3 ?F) (Oral) Resp 18 Ht 172.7 cm (5' 8) Wt 103.3 kg (227 lb 12.8 oz) SpO2 93% BMI 34.64 kg/m? General Appearance:In no apparent distress Affect:calm Eyes:closed Abdomen:obese Skin/Lipohypertrophy:no cyanosis Sternal incision intact Edema:LE HR on tele 77 IV NS KVO with SILK WORKER pain pump Laboratory Results: Glucose (mg/dL) Date Value 09/25/2017 162 Potassium (mmol/L) Date Value 09/25/2017 3.7 Sodium (mmol/L) Date Value 09/25/2017 136 Chloride (mmol/L) Date Value 09/25/2017 94 CO2 (mmol/L) Date Value 09/25/2017 32 Creatinine (mg/dL) Date Value 09/25/2017 1.23 BUN (mg/dL) Date Value 09/25/2017 21 Anion Gap (mmol/L) Date Value 09/25/2017 10 Calcium (mg/dL) Date Value 09/25/2017 8.6 ALT Date Value Ref Range Status 09/25/2017 20 10 - 54 U/L Final AST Date Value Ref Range Status 09/25/2017 12 (L) 14 - 40 U/L Final Hemoglobin (g/dL) Date Value 09/25/2017 10.9 Hematocrit (%) Date Value 09/25/2017 33.5 WBC (k/uL) Date Value 09/25/2017 11.18 Platelet Count (k/uL) Date Value 09/25/2017 181 Hemoglobin A1C (%) Date Value 09/15/2017 8.8 LV Ejection Fraction (%) Date Value 09/13/2017 60 Diet: Heart Healthy: Cardiac 2 GM SODIUM (<200 MG CHOL / LOW SAT FAT), Carb Control: 3--5 CARBS/MEAL (<200 MG CHOL / LOW SAT FAT) and Fluid Restriction : 1500ml daily Supplements: none Other Pertinent Medications: Steroids none Diabetes Management in Hospital Hospital ?BG values or ranges: ? Date AM LUNCH DINNER HS 3AM 09/22 168 RHI ?Lantus 25u 214(h6) 207(h6) ? ? 09/23? 190(h3) Lantus 25u ? ?225(h6) ?192(h3) 176(H2)? ?180 ?09/24 176-177(H2) NPO Lantus 25 u? 177(H2)? 149? 199(H2)? 162? ?09/25 156(H2) Lantus 25u? 189(H3+2) 222(H4+3)? Impression/Recommendations:? Patient with uncontrolled Diabetes Mellitus Type 2 hyperglycemia?s/p CABG ?whom we have been consulted for glycemic control. Transferred to [facility] yesterday and started diet at dinner yesterday. BG above normal, started diet will monitor BG on full MDI insulin regimen and will adjust plan as needed. 12:03 PM had breakfast per nursing note 40% but in [facility] about 75%. Did not had h bolus this am will adjust H to3ac for now. Debi Ballard APRN.ASSISTANT STRENGTH COACH RECOMMENDATIONS: ? ?Basal Insulin: Lantus 25?units QAM ? ?Prandial Insulin: Humalog 3 units?units AC TID ? ?Supplemental Sliding Scale: Humalog Program #2?AC AND2?HS ? ?Accuchecks: AC/HS ? ?Recommend As per Unit Dietitian ? ?Consult CDE regarding: DM Education including /TBD ? DM DISCHARGE PLAN: ? ?To be decided based on clinical course. ? ?Check blood sugars Three times a Day? ? ?Diet: Low carbohydrate ? ?Exercise as prescribed by cardiology ? ?Follow up with cable installation technician and box office clerk as recommended. ? ?Patient will need [facility] at the [facility] ([facility]) or with his home pacu nurse/PCP in 1-2 weeks after discharge. ? ?Diabetes Care Team Hospital Discharge Help Line: [phone] ? SIGNATURE: Debi Ballard APRN.CNP PATIENT NAME: Noman Stone DATE: September 25, 2017 TIME: 10:30 AM PAGER/CONTACT #: [phone] CBC Collected: 09/25/2017 Status: F Source: [place] 4:14 [facility] REPOSITORY TYPE CODE TESTS RESULT OUT OF REFERENCE UNITS RANGE LAB WBC 3.70-11.00 k/uL WBC High 11.18 LAB RBC 4.20-6.00 m/uL Low RBC 3.65 LAB HGB 13.0-17.0 g/dL Low Hemoglobin 10.9 LAB HCT 39.0-51.0 % Low Hematocrit 33.5 LAB MCV 80.0-100.0 fL MCV 91.8 LAB MCH 26.0-34.0 pG MCH 29.9 LAB MCHC 30.5-36.0 g/dL MCHC 32.5 LAB RDWCV 11.5-15.0 % RDW-CV 13.7 LAB PLTCT 150-400 k/uL Platelet Count 181 LAB MPV 9.0-12.7 fL MPV 10.1 LAB ABSNUC <0.01 k/uL Absolute nRBC <0.01 Performed By: #### CBC, PT, CMP #### [facility] [address] [address] PROTIME Collected: 09/25/2017 Status: F Source: MARIBEL 4:14 [facility] REPOSITORY TYPE CODE TESTS RESULT OUT OF RANGE REFERENCE UNITS LAB PSEC 9.7-13.0 sec High PT Sec 23.9 LAB INR 0.9-1.3 High PT INR 2.4 Result Comment: Vitamin K Antagonist (VKA) Therapeutic Range: INR 2 to 3 (Target INR of 2.5) Note: For patients treated with VKA drugs, such as warfarin, the [place] [employer] 2012 Guideline recommends a therapeutic INR range of 2 to 3 (target INR of 2.5). This recommendation includes high-risk patients with antiphospholipid syndrome with previous arterial or venous thromboembolism, current-generation mechanical or bioprosthetic aortic heart valve replacement. Note: Patients with mechanical aortic valve replacement and additional risk factors for thromboembolic events (atrial fibrillation, previous thromboembolism, LV dysfunction, hypercoagulable conditions) or an older generation mechanical AVR (i.e., ball in-Cage) or any mechanical MVR should have a INR therapeutic range of 2.5 to 3.5 (target INR of 3). Bety GH, et al. Chest 2012, 141:7S-47S Joy RA, et al. [facility] 2017, 70: 252-289 Performed By: #### CBC, PT, CMP #### [facility] [address] [place] [address] COMP METABOLIC PANEL Collected: 09/25/2017 Status: F Source: MARIBEL 4:14 AM [facility] REPOSITORY TYPE CODE TESTS RESULT OUT OF REFERENCE UNITS RANGE LAB TP 6.3-8.0 g/dL Low Protein, Total 6.2 LAB ALB 3.9-4.9 g/dL Low Albumin 3.1 LAB CA 8.5-10.2 mg/dL Calcium, Total 8.6 LAB TBIL 0.2-1.3 mg/dL Bilirubin, Total 0.4 LAB ALKP 36-108 U/L Alkaline Phosphatase 36 LAB AST 14-40 U/L Low AST 12 LAB GLU 74-99 mg/dL Glucose High 162 Result Comment: The [place] Diabetes Association (ADA) provides guidance for cutoff values for fasting glucose and random glucose. The ADA defines fasting as no caloric intake for at least 8 hours. Fas ting plasma glucose results between 100 to 125 mg/dL indicate increased risk for diabetes (prediabetes). Fasting plasma glucose results greater than or equal to 126 mg/dL meet the criteria for diagnosis of diabetes. In the absence of unequivocal hyperglycemia, results should be confirmed by repeat testing. In a patient with classic symptoms of hyperglycemia or hyperglycemic crisis, random plasma glucose results greater than or equal to 200 mg/dL meet the criteria for diagnosis of diabetes. Reference: Standards of Medical Care in Diabetes 2016, [place] [employer]. Diabetes Care. 2016.39(Suppl 1). LAB BUN 9-24 mg/dL BUN 21 LAB CRET 0.73-1.22 mg/dL Creatinine High 1.23 LAB NA 136-144 mmol/L Sodium 136 LAB K 3.7-5.1 mmol/L Potassium 3.7 LAB CL 97-105 mmol/L Low Chloride 94 LAB CO2 22-30 mmol/L CO2 High 32 LAB AGAP 9-18 mmol/L Anion Gap 10 LAB ALT 10-54 U/L ALT 20 LAB GFRAA eGFR- Amer. >60 LAB GFRNAA . eGFR-All Other Races 60 Result Comment: eGFR (Estimated GFR) Units of measure: mL/min/1.73 meters squared eGFR is derived from the reexpressed MDRD Study equation using the following parameters: serum creatinine, age, gender and race. The creatinine assay has been calibrated to be traceable to IDMS. An eGFR <60 mL/min/1.73m2 for >3 months is consistent with chronic kidney disease. Refer to KDOQI guidelines for clinical interpretation. In patients with unstable renal function, e.g. those with acute kidney injury, the eGFR may not accurately reflect actual GFR. Performed By: #### CBC, PT, CMP #### [facility] [address] [address] NURSING PROG Observed: 09/24/2017 Status: COMPLETED Source: MARIBEL 6:54 PM [facility] REPOSITORY HNO ID: [id number] Author: Jessi Vasquez (Rn) GENIA Styles Service: (none) Author Type: Registered Nurse Type: Nursing Progress Note Filed: 09/24/2017 6:55 PM Note Text: Nursing Progress Note Patient Name: Noman Stone Patient Location: [place] [address] Transfer Note: Patient transferred into room/unit J51-22 in stable condition. Actions taken: Pt oriented to room and call light, falls precautions in place. Skin assessed with GENAI Oliveira, no breakdown noted. This note was completed by: Jessi Styles GASA + ALL Collected: 09/24/2017 Status: F Source: MARIBEL FOR 4:24 PM [facility] RADIANCE USE ONLY REPOSITORY TYPE CODE TESTS RESULT OUT OF REFERENCE UNITS RANGE LAB PH 7.35-7.45 pH High 7.46 LAB PCO2 34-46 mm Hg pCO2 42 LAB PO2 85-95 mm Hg pO2 85 LAB BE mmol/L Base Excess 6 LAB HCO3 22-26 mmol/L Bicarbonate High 30 LAB CO2CT 22.0-28.0 mmol/L CO2 Content High 31 LAB O2HB 95-98 % Oxyhemoglobin, Art. 96 LAB COHB 0-5.0 % Carboxyhemoglobin,A 1.4 rt LAB MHGB 0.4-1.5 % Methemoglobin Low 0.0 LAB TEMP C Temperature, Body 37.0 LAB PHTC 7.35-7.45 pH, Temp High Corrected 7.46 LAB PCO2T 34-46 mm Hg pCO2, Temp Correct 42 LAB PO2T mm Hg pO2, Temp Corrected 85 LAB NAB 135-146 mmol/L Sodium,Whole Bld Low 133 LAB KWB 3.5-5.0 mmol/L Potassium, Whole Bld 3.9 LAB HGBB 13.0-17.0 g/dL Low Hemoglobin,Total,AC 10.0 L LAB HCTB 39.0-51.0 % Hematocrit, ACL Low 31 LAB IC 1.08-1.30 mmol/L Calcium, Ion, WB 1.16 LAB GLB 60-105 mg/dL Glucose,Whole Bld High 149 LAB LACT 0.5-2.2 mmol/L Lactate 1.0 Performed By: #### ALLBG #### [facility] [address] [place] [address] PROGRESS Observed: 09/24/2017 Status: COMPLETED Source: MARIBEL 12:06 PM [facility] REPOSITORY HNO ID: [id number] Author: Sweetie Aguilera Service: Critical Care Author Type: Nurse Practitioner Type: Progress Notes Filed: 09/24/2017 12:11 PM Note Text: [facility] CV[facility] Note Name: Nomna Stone Coordination of Care Note: Indication for Surgery: CAD LVEF: 60%, concentric LVH RVF: Mild Important/Relevant PMH/PSH: CAD (prior PCI to RCA, rPDA and LAD), PAD with prior LLE stent, HNT, HLD, DMII, ARNOLDO Preoperative Hospital Course (narrative): 61M with CAD (prior PCI to RCA, rPDA and LAD), PAD with prior LLE stent, HNT, HLD, DMII, ARNOLDO who presents with severe 3v CAD here for consideration of CABG. He describes slowly progressive angina over the last several months. Despite presenting with AF with slow ventricular response, he spontaneously cardioverted to sinus rhythm with normal HR (70s). Reasonable to consider CABG with MAZE and possible SHAD exclusion. Procedure/Surgeries: 09/21/2017 CABG x5 (MANCERA-LAD, SVG-D, SVG-OM, SVG-PDA-PLV), LAAL, PVI Airway Difficulty: Grade I - No special instrumentation OR Course: 2 pump runs, htn Pacing wires: Yes: Atrial and Ventricular: When discontinuing pacing wires: Pull all pacing wires Postoperative Course/General Impression: (narrative or log of major events with date of onset): Arrived to ICU intubated and sedated. Requiring ntg drip for htn. Extubated NOS. 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 Continue diuresis. ST changes on ECG, trended troponin AND ECG>pericarditis Issues to communicate at signout: Daily dose warfarin/plavix for stent Dilaudid SILK WORKER for pain tid heparin as patient does not want to wear IPCs dt prior fem-pop bypass Discharge Planning: Anticipated Discharge Date: Unknown Unknown Care Management Discharge Needs: Needs Prior to Discharge: To Be Determined Other Problems I Reviewed and/or Managed During This Encounter: Problem A-Fib (Hcc) 09/21/2017 s/p PVI, LAAE A/P: Currently in Normal sinus rhythm. Continue carvedilol. Coumadin daily dose Cad (Coronary Artery Disease) History: S/p ELZA to rRCA 2.5x28mm Promus Premier EES on 02/11/15 c/b dissection during cath not amenable to corrective intervention. 09/11/2016 Developed palpitations, CE negative, Abnormal stress test. LHC at [facility] showed triple vessel disease. Transferred to [facility] for CABG eval. Last dose of Plavix 09/11/2016 09/21/2017 CABG x5 (MANCERA-LAD, SVG-D, SVG-OM, SVG-PDA-PLV), LAAL, PVI CAD Core Measures: Aspirin: Yes Beta blockers: Yes Statins: Resumed home dose of lipitor Atelectasis A/P: Post-operative atelectasis. OOB, PEP and optimize pain control. Currently on 3 liters NCWean O2 as tolerated Unstable Angina (Hcc) See CAD Peripheral arterial disease S/p multiple interventions. Pt reports he can not use IPCs due to poor circulation. A/P: SQ hepatin TID (due to refusal to wear IPC's.) Continue clopidogrel. Htn (Hypertension) A/P: On Imdur 60mg, losartan 25mg, carvedilol 25mg BID, Norvasc 10mg., HCTZA 12.5mg and losartan at home. A/p: Normotensive. Continue carvedilol, increase dose and add home meds as tolerated. Pain, Postoperative, Acute A/P: PAin well controlled. Continue lidocaine patches,dilaudid SILK WORKER, and PRN oxycodone. 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 A/p Endocrine following. Continue lantus AND SSI for glucose control Hyperlipidemia History: POA: Home med: atorvastatin. Assessment: Component Latest Ref Rng AND Units 09/14/2017 Cholesterol, Total <200 mg/dL 123 Triglyceride <150 mg/dL 167 (H) HDL Cholesterol >39 mg/dL 34 (L) LDL Cholesterol <100 mg/dL 56 Non HDL Cholesterol <130 mg/dL 89 Fasting Time hrs Unknown VLDL Cholesterol <30 mg/dL 33 (H) TC:HDL Ratio <5.10 3.62 LDL:HDL Ratio <2.54 1.65 Plan: Continue atorvastatin. Stage 3 Chronic Kidney Disease (Hcc) Creat on admission was 1.35. Kidney u/s 6-25: no hydronephrosis A/P: Cr 1.32 and stable. Non-oliguric. Avoid nephrotoxins and hypotension. Discharge Planning Issues 61yo man from [facility]. Monitor for dc needs as he recovers. PHYSICAL EXAM: Neuro: Awake, Follows commands and Alert and oriented x 3 Cardiovascular: Rhythm: regular rate and rhythm Pulmonary: Clear to auscultation and Breath sounds equal Ventilator: N/A, patient is extubated CXR Findings: Atelectasis Bilateral, Increased Vascular Markings Bilateral and CXR personally viewed and interpreted by ICU staff Nurse Practitioner Gastrointestinal: Abdominal: Soft and Non-tender DAILY CVICU CHECKLIST VTE Prophylaxis: Pharmacologic Yes VTE Prophylaxis: Mechanical: Yes Line infection prevention: Can CVC, PAC or arterial line be removed: Not indicated Continued need for urinary catheter: Yes - clinical indication: Patient post major surgery requiring fluid balance and input and output measurement. Restraints needed: No SIGNATURE: Sweetie Aguilera CNP pager [phone] DATE of SERVICE: 09/24/2017 TIME of SERVICE: 12:06 PM GASA + ALL Collected: 09/24/2017 Status: F Source: MARIBEL FOR 11:14 AM [facility] RADIANCE USE ONLY REPOSITORY TYPE CODE TESTS RESULT OUT OF REFERENCE UNITS RANGE LAB PH 7.35-7.45 pH 7.44 LAB PCO2 34-46 mm Hg pCO2 43 LAB PO2 85-95 mm Hg pO2 High 114 LAB BE mmol/L Base Excess 4 LAB HCO3 22-26 mmol/L Bicarbonate High 29 LAB CO2CT 22.0-28.0 mmol/L CO2 Content High 30 LAB O2HB 95-98 % Oxyhemoglobin, Art. 97 LAB COHB 0-5.0 % Carboxyhemoglobin,A 1.5 rt LAB MHGB 0.4-1.5 % Methemoglobin 0.4 LAB TEMP C Temperature, Body 37.0 LAB PHTC 7.35-7.45 pH, Temp Corrected 7.44 LAB PCO2T 34-46 mm Hg pCO2, Temp Correct 43 LAB PO2T mm Hg pO2, Temp Corrected 114 LAB NAB 135-146 mmol/L Sodium,Whole Bld Low 134 LAB KWB 3.5-5.0 mmol/L Potassium, Whole Bld 3.9 LAB HGBB 13.0-17.0 g/dL Low Hemoglobin,Total,AC 10.0 L LAB HCTB 39.0-51.0 % Hematocrit, ACL Low 31 LAB IC 1.08-1.30 mmol/L Calcium, Ion, WB 1.15 LAB GLB 60-105 mg/dL Glucose,Whole Bld High 177 LAB LACT 0.5-2.2 mmol/L Lactate 1.1 Performed By: #### ALLBG #### [facility] [address] [place] [address] CASE MANAGEM Observed: 09/24/2017 Status: COMPLETED Source: MARIBEL 7:54 AM [facility] REPOSITORY HNO ID: [id number] Author: Jerardo VelázquezRn) GENIA Argueta Service: Case Management Author Type: Registered Nurse Type: Care Mgt Progress Note Filed: 09/24/2017 7:57 AM Note Text: CARE MANAGEMENT PROGRESS NOTE SERVICE DATE: 09/24/2017 SERVICE TIME: 7:55 AM LOS: 11 days Needs Prior to Discharge: To Be Determined;OT/PT Evaluation Procedure/Surgeries: 09/21/2017 CABG x5 (MANCERA-LAD, SVG-D, SVG-OM, SVG-PDA-PLV), LAAL, PVI 4L NC and CTx1. Plan to transfer to step down. Pt will need PT/OT eval. DC needs TBD. Case Management will continue to follow medical course and plan discharge accordingly. SIGNATURE: Jerardo Argueta RN PATIENT NAME: Noman Stone DATE: September 24, 2017 TIME: 7:55 AM PAGER/CONTACT #: [phone] CONSULT PROG Observed: 09/24/2017 Status: COMPLETED Source: MARIBEL 7:47 AM [facility] REPOSITORY HNO ID: [id number] Author: Debi Ballard Service: Endocrinology Author Type: Nurse Practitioner Type: Consult Progress Note Filed: 09/24/2017 6:43 PM Note Text: DIABETES CARE TEAM NOTE SERVICE DATE: 09/24/2017 SERVICE TIME: 7:47 AM Subjective Summary of History from Prior Record: Consult Date:09/22/17 HPI: Mr. Noman Stone is a 61 year old male with a 8?year history of Diabetes Mellitus Type 2 hyperglycemia?who was admitted on 09/13/2017 for CABG . Past medical history significant for ?CAD (prior PCI to RCA, rPDA and LAD), PAD with prior LLE stent, HNT, HLD, DMII, ARNOLDO . Patient ?does not ?exercise. Last HbA1c was 8.8 ?on 09/15/17 .. ?He has a family history of diabetes in his maternal GF. He is followed by PCP?for his diabetes. ? ? DIABETIC COMPLICATIONS: Nephropathy: Diabetic chronic kidney disease Neuropathy: [place] ? Pre-Admission DM Regimen: Preadmission oral agents: Dulaglutide (Trulicity) 0.75 and 1.5 mg pen (once weekly) Preadmission insulin regimen: Lantus 30?units ?Q HS ? ? Self Monitoring Blood Glucose: Type of Monitor: Freestyle? Frequency of Monitoring: Three times a Day BG Values: 150-220 Hypoglycemia: Frequency:none in many months -happens INTERVAL HPI: I am not eating yet. PERTINENT ROS: Constitutional:pain controlled and using SILK WORKER pian pump Appetite:NPO GI:denies N/V Objective PHYSICAL EXAM: BP 129/72 Pulse 74 Temp 36.8 ?C (98.2 ?F) (Temporal Artery) Resp 16 Ht 172.7 cm (5' 8) Wt 108.6 kg (239 lb 6.7 oz) SpO2 97% BMI 36.40 kg/m? General Appearance:A+O x 3 and In no apparent distress Affect:Pleasant and cooperative Eyes:Sclerae non-icteric Abdomen:round and soft Skin/Lipohypertrophy:no cyanosis HR on tele 78 Do to c/d Laboratory Results: Glucose (mg/dL) Date Value 09/24/2017 180 Potassium (mmol/L) Date Value 09/24/2017 4.5 Sodium (mmol/L) Date Value 09/24/2017 134 Chloride (mmol/L) Date Value 09/24/2017 95 CO2 (mmol/L) Date Value 09/24/2017 26 Creatinine (mg/dL) Date Value 09/24/2017 1.32 BUN (mg/dL) Date Value 09/24/2017 17 Anion Gap (mmol/L) Date Value 09/24/2017 13 Calcium (mg/dL) Date Value 09/24/2017 8.5 ALT Date Value Ref Range Status 09/24/2017 23 10 - 54 U/L Final AST Date Value Ref Range Status 09/24/2017 14 14 - 40 U/L Final Hemoglobin (g/dL) Date Value 09/24/2017 10.1 Hematocrit (%) Date Value 09/24/2017 30.8 WBC (k/uL) Date Value 09/24/2017 13.96 Platelet Count (k/uL) Date Value 09/24/2017 144 Hemoglobin A1C (%) Date Value 09/15/2017 8.8 LV Ejection Fraction (%) Date Value 09/13/2017 60 Diet: NPO Supplements: none Other Pertinent Medications: Steroids: none Diabetes Management in Hospital Hospital ?BG values or ranges: ? Date AM LUNCH DINNER HS 3AM 09/22 168 RHI ?Lantus 25u 214(h6) 207(h6) ? ? 09/23? 190(h3) Lantus 25u ? ?225(h6) ?192(h3) 176(H2)? ?180 ?09/24 176-177(H2) NPO Lantus 25 u? 177(H2)? 149? Impression/Recommendations:? Patient with uncontrolled Diabetes Mellitus Type 2 hyperglycemia?s/p CABG ?whom we have been consulted for glycemic control. NPO and BG above normal, for now continue same basal and monitor BG trends and adjust plan accordingly. ? ?6:42 PM Transferred to [facility] now has diet in placed Debi Ballard APRN.ASSISTANT STRENGTH COACH RECOMMENDATIONS: ? ?Basal Insulin: Lantus 25?units QAM ? ?Prandial Insulin: Humalog 5 units?units AC TID(NPO today ) ? ?Supplemental Sliding Scale: Humalog Program #2?AC AND2?HS ? ?Accuchecks: AC/HS ? ?Recommend As per Unit Dietitian ? ?Consult CDE regarding: DM Education including /TBD ? DM DISCHARGE PLAN: ? ?To be decided based on clinical course. ? ?Check blood sugars Three times a Day? ? ?Diet: Low carbohydrate ? ?Exercise as prescribed by cardiology ? ?Follow up with cable installation technician and box office clerk as recommended. ? ?Patient will need [facility] at [facility] ([facility]) or with his home pacu nurse/PCP in 1-2 weeks after discharge. ? ?Diabetes Care Team Hospital Discharge Help Line: [phone] ? SIGNATURE: Debi Ballard APRN.CNP PATIENT NAME: Noman Stone DATE: September 24, 2017 TIME: 7:47 AM PAGER/CONTACT #: [phone] GASA + ALL Collected: 09/24/2017 Status: F Source: MARIBEL FOR 7:20 AM [facility] REPOSITORY TYPE CODE TESTS RESULT OUT OF REFERENCE UNITS RANGE LAB PH 7.35-7.45 pH 7.44 LAB PCO2 34-46 mm Hg pCO2 44 LAB PO2 85-95 mm Hg pO2 85 LAB BE mmol/L Base Excess 5 LAB HCO3 22-26 mmol/L Bicarbonate High 29 LAB CO2CT 22.0-28.0 mmol/L CO2 Content High 30 LAB O2HB 95-98 % Oxyhemoglobin, Low Art. 94 LAB COHB 0-5.0 % Carboxyhemoglobin,A 1.8 rt LAB MHGB 0.4-1.5 % Methemoglobin 1.0 LAB TEMP C Temperature, Body 37.0 LAB PHTC 7.35-7.45 pH, Temp Corrected 7.44 LAB PCO2T 34-46 mm Hg pCO2, Temp Correct 44 LAB PO2T mm Hg pO2, Temp Corrected 85 LAB NAB 135-146 mmol/L Sodium,Whole Bld 135 LAB KWB 3.5-5.0 mmol/L Potassium, Whole Bld 3.9 LAB HGBB 13.0-17.0 g/dL Low Hemoglobin,Total,AC 10.5 L LAB HCTB 39.0-51.0 % Hematocrit, ACL Low 33 LAB IC 1.08-1.30 mmol/L Calcium, Ion, WB 1.15 LAB GLB 60-105 mg/dL Glucose,Whole Bld High 177 LAB LACT 0.5-2.2 mmol/L Lactate 1.1 Performed By: #### ALLBG #### [facility] [address] [place], [place] [address] GASA + ALL Collected: 09/24/2017 Status: F Source: MARIBEL FOR 6:30 AM [facility] USE ONLY REPOSITORY TYPE CODE TESTS RESULT OUT OF REFERENCE UNITS RANGE LAB PH 7.35-7.45 pH High 7.46 LAB PCO2 34-46 mm Hg pCO2 39 LAB PO2 85-95 mm Hg pO2 Low 77 LAB BE mmol/L Base Excess 4 LAB HCO3 22-26 mmol/L Bicarbonate High 27 LAB CO2CT 22.0-28.0 mmol/L CO2 Content High 29 LAB O2HB 95-98 % Oxyhemoglobin, Low Art. 94 LAB COHB 0-5.0 % Carboxyhemoglobin,A 1.6 rt LAB MHGB 0.4-1.5 % Methemoglobin 0.7 LAB TEMP C Temperature, Body 37.0 LAB PHTC 7.35-7.45 pH, Temp High Corrected 7.46 LAB PCO2T 34-46 mm Hg pCO2, Temp Correct 39 LAB PO2T mm Hg pO2, Temp Corrected 77 LAB NAB 135-146 mmol/L Sodium,Whole Bld Low 133 LAB KWB 3.5-5.0 mmol/L Potassium, Whole Bld 4.0 LAB HGBB 13.0-17.0 g/dL Low Hemoglobin,Total,AC 10.8 L LAB HCTB 39.0-51.0 % Hematocrit, ACL Low 33 LAB IC 1.08-1.30 mmol/L Calcium, Ion, WB 1.17 LAB GLB 60-105 mg/dL Glucose,Whole Bld High 176 LAB LACT 0.5-2.2 mmol/L Lactate 1.4 Performed By: #### ALLBG #### [facility] [address] [place] [address] GASA + ALL Collected: 09/24/2017 Status: F Source: MARIBEL FOR 2:10 AM [facility] RADIANCE USE ONLY REPOSITORY TYPE CODE TESTS RESULT OUT OF REFERENCE UNITS RANGE LAB PH 7.35-7.45 pH 7.44 LAB PCO2 34-46 mm Hg pCO2 41 LAB PO2 85-95 mm Hg pO2 Low 83 LAB BE mmol/L Base Excess 3 LAB HCO3 22-26 mmol/L Bicarbonate High 27 LAB CO2CT 22.0-28.0 mmol/L CO2 Content High 29 LAB O2HB 95-98 % Oxyhemoglobin, Low Art. 94 LAB COHB 0-5.0 % Carboxyhemoglobin,A 0.8 rt LAB MHGB 0.4-1.5 % Methemoglobin 1.1 LAB TEMP C Temperature, Body 37.0 LAB PHTC 7.35-7.45 pH, Temp Corrected 7.44 LAB PCO2T 34-46 mm Hg pCO2, Temp Correct 41 LAB PO2T mm Hg pO2, Temp Corrected 83 LAB NAB 135-146 mmol/L Sodium,Whole Bld Low 133 LAB KWB 3.5-5.0 mmol/L Potassium, Whole Bld 4.0 LAB HGBB 13.0-17.0 g/dL Low Hemoglobin,Total,AC 10.4 L LAB HCTB 39.0-51.0 % Hematocrit, ACL Low 32 LAB IC 1.08-1.30 mmol/L Calcium, Ion, WB 1.19 LAB GLB 60-105 mg/dL Glucose,Whole Bld High 185 LAB LACT 0.5-2.2 mmol/L Lactate 1.1 Performed By: #### ALLBG #### [facility] [address] [place], [place] [address] PROTIME Collected: 09/24/2017 Status: F Source: MARIBEL 2:10 AM [facility] REPOSITORY TYPE CODE TESTS RESULT OUT OF RANGE REFERENCE UNITS LAB PSEC 9.7-13.0 sec High PT Sec 14.9 LAB INR 0.9-1.3 High PT INR 1.5 Result Comment: Vitamin K Antagonist (VKA) Therapeutic Range: INR 2 to 3 (Target INR of 2.5) Note: For patients treated with VKA drugs, such as warfarin, the [place] [employer] 2012 Guideline recommends a therapeutic INR range of 2 to 3 (target INR of 2.5). This recommendation includes high-risk patients with antiphospholipid syndrome with previous arterial or venous thromboembolism, current-generation mechanical or bioprosthetic aortic heart valve replacement. Note: Patients with mechanical aortic valve replacement and additional risk factors for thromboembolic events (atrial fibrillation, previous thromboembolism, LV dysfunction, hypercoagulable conditions) or an older generation mechanical AVR (i.e., ball in-Cage) or any mechanical MVR should have a INR therapeutic range of 2.5 to 3.5 (target INR of 3). Genatt GH, et al. Chest 2012, 141:7S-47S Joy RA et al. JAC 2017, 70: 252-289 Performed By: #### PT, CMP, CBC #### [facility] [address] [place], [place] [address] COMP METABOLIC PANEL Collected: 09/24/2017 Status: F Source: MARIBEL 2:10 AM [facility] REPOSITORY TYPE CODE TESTS RESULT OUT OF REFERENCE UNITS RANGE LAB TP 6.3-8.0 g/dL Low Protein, Total 5.6 LAB ALB 3.9-4.9 g/dL Low Albumin 2.7 LAB CA 8.5-10.2 mg/dL Calcium, Total 8.5 LAB TBIL 0.2-1.3 mg/dL Bilirubin, Total 0.5 LAB ALKP 36-108 U/L Low Alkaline Phosphatase 31 LAB AST 14-40 U/L AST 14 LAB GLU 74-99 mg/dL Glucose High 180 Result Comment: The [place] [employer] (ADA) provides guidance for cutoff values for fasting glucose and random glucose. The ADA defines fasting as no caloric intake for at least 8 hours. Fas ting plasma glucose results between 100 to 125 mg/dL indicate increased risk for diabetes (prediabetes). Fasting plasma glucose results greater than or equal to 126 mg/dL meet the criteria for diagnosis of diabetes. In the absence of unequivocal hyperglycemia, results should be confirmed by repeat testing. In a patient with classic symptoms of hyperglycemia or hyperglycemic crisis, random plasma glucose results greater than or equal to 200 mg/dL meet the criteria for diagnosis of diabetes. Reference: Standards of Medical Care in Diabetes 2016, [place] [employer]. Diabetes Care. 2016.39(Suppl 1). LAB BUN 9-24 mg/dL BUN 17 LAB CRET 0.73-1.22 mg/dL Creatinine High 1.32 LAB NA 136-144 mmol/L Low Sodium 134 LAB K 3.7-5.1 mmol/L Potassium 4.5 LAB CL 97-105 mmol/L Low Chloride 95 LAB CO2 22-30 mmol/L CO2 26 LAB AGAP 9-18 mmol/L Anion Gap 13 LAB ALT 10-54 U/L ALT 23 LAB GFRAA eGFR- Amer. >60 LAB GFRNAA . eGFR-All Other Races 55 Result Comment: eGFR (Estimated GFR) Units of measure: mL/min/1.73 meters squared eGFR is derived from the reexpressed MDRD Study equation using the following parameters: serum creatinine, age, gender and race. The creatinine assay has been calibrated to be traceable to IDMS. An eGFR <60 mL/min/1.73m2 for >3 months is consistent with chronic kidney disease. Refer to KDOQI guidelines for clinical interpretation. In patients with unstable renal function, e.g. those with acute kidney injury, the eGFR may not accurately reflect actual GFR. Performed By: #### PT, CMP, CBC #### [facility] [address] [place], [place] [address] CBC Collected: 09/24/2017 Status: F Source: MARIBEL 2:10 AM [facility] REPOSITORY TYPE CODE TESTS RESULT OUT OF REFERENCE UNITS RANGE LAB WBC 3.70-11.00 k/uL WBC High 13.96 LAB RBC 4.20-6.00 m/uL Low RBC 3.39 LAB HGB 13.0-17.0 g/dL Low Hemoglobin 10.1 LAB HCT 39.0-51.0 % Low Hematocrit 30.8 LAB MCV 80.0-100.0 fL MCV 90.9 LAB MCH 26.0-34.0 pG MCH 29.8 LAB MCHC 30.5-36.0 g/dL MCHC 32.8 LAB RDWCV 11.5-15.0 % RDW-CV 13.9 LAB PLTCT 150-400 k/uL Low Platelet Count 144 LAB MPV 9.0-12.7 fL MPV 11.0 LAB ABSNUC <0.01 k/uL Absolute nRBC <0.01 Performed By: #### PT, CMP, CBC #### [facility] [address] [place], [place] [address] XR CHEST 1V FRONTAL Observed: 09/24/2017 Status: F Source: [facility] 1:55 AM [facility] REPOSITORY * * *Final Report* * * DATE OF EXAM: Sep 24 2017 1:55AM [id number] - XR CHEST 1V FRONTAL PORT / PROCEDURE REASON: Evaluate tube, line or lead position * * * * Physician Interpretation * * * * EXAMINATION: CHEST RADIOGRAPH (PORTABLE SINGLE VIEW AP) Exam Date/Time: 09/24/2017 1:55 AM Clinical History: Evaluate tube, line or lead position MQ: XCPMC_5 Comparison: 1 day prior RESULT: See impression. IMPRESSION: Lines, tubes, and devices: Left chest tube out, otherwise stable Lungs and pleura: Lung volumes slightly low though similar to prior, with mild basal atelectasis. Mild reticular changes in the lungs bilaterally likewise stable and could be accentuated by technique, or may be due to subtle edema. Cardiomediastinal silhouette: Stable post sternotomy Other: . 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: PSCElza Transcribe Date/Time: Sep 24 2017 8:05A Dictated by : MUSA HOLMAN MD This examination was interpreted and the report reviewed and electronically signed by: MUSA HOLMAN MD on Sep 24 2017 8:07AM EST [id number] GASA + ALL Collected: 09/23/2017 Status: F Source: [facility] 8:20 PM [facility] RADIANCE USE ONLY REPOSITORY TYPE CODE TESTS RESULT OUT OF REFERENCE UNITS RANGE LAB PH 7.35-7.45 pH 7.42 LAB PCO2 34-46 mm Hg pCO2 42 LAB PO2 85-95 mm Hg pO2 89 LAB BE mmol/L Base Excess 3 LAB HCO3 22-26 mmol/L Bicarbonate High 27 LAB CO2CT 22.0-28.0 mmol/L CO2 Content 28 LAB O2HB 95-98 % Oxyhemoglobin, Art. 96 LAB COHB 0-5.0 % Carboxyhemoglobin,A 1.5 rt LAB MHGB 0.4-1.5 % Methemoglobin Low 0.3 LAB TEMP C Temperature, Body 37.0 LAB PHTC 7.35-7.45 pH, Temp Corrected 7.42 LAB PCO2T 34-46 mm Hg pCO2, Temp Correct 42 LAB PO2T mm Hg pO2, Temp Corrected 89 LAB NAB 135-146 mmol/L Sodium,Whole Bld Low 132 LAB KWB 3.5-5.0 mmol/L Potassium, Whole Bld 4.0 LAB HGBB 13.0-17.0 g/dL Low Hemoglobin,Total,AC 10.1 L LAB HCTB 39.0-51.0 % Hematocrit, ACL Low 31 LAB IC 1.08-1.30 mmol/L Calcium, Ion, WB 1.19 LAB GLB 60-105 mg/dL Glucose,Whole Bld High 176 LAB LACT 0.5-2.2 mmol/L Lactate 1.0 Performed By: #### ALLBG #### [facility] [address] [place], [place] [address] CONSULT PROG Observed: 09/23/2017 Status: COMPLETED Source: [facility] 7:41 PM [facility] REPOSITORY HNO ID: [id number] Author: Mateus Tan Service: Endocrinology Author Type: Nurse Practitioner Type: Consult Progress Note Filed: 09/23/2017 7:46 PM Note Text: DIABETES CARE TEAM NOTE SERVICE DATE: 09/23/2017 SERVICE TIME: 7:41 PM Subjective Summary of History from Prior Record: Consult Date:09/22/17 HPI: Mr. Noman Stone is a 61 year old male with a 8 year history of Diabetes Mellitus Type 2 hyperglycemia who was admitted on 09/13/2017 for CABG . Past medical history significant for CAD (prior PCI to RCA, rPDA and LAD), PAD with prior LLE stent, HNT, HLD, DMII, ARNOLDO . Patient does not exercise. Last HbA1c was 8.8 on 09/15/17 .. He has a family history of diabetes in his maternal GF. He is followed by PCP for his diabetes. ? DIABETIC COMPLICATIONS: Nephropathy: Diabetic chronic kidney disease Neuropathy: [place] ? Pre-Admission DM Regimen: Preadmission oral agents: Dulaglutide (Trulicity) 0.75 and 1.5 mg pen (once weekly) Preadmission insulin regimen: Lantus 30 units Q HS ? ? Self Monitoring Blood Glucose: Type of Monitor: Freestyle Frequency of Monitoring: Three times a Day BG Values: 150-220 Hypoglycemia: Frequency:none in many months -happens INTERVAL HPI: remains in ICU PERTINENT ROS: Constitutional:Feels well, no complaints Appetite:Intact GI:No nausea, no vomitting, no diarrhea, no constipation Objective PHYSICAL EXAM: BP 129/72 Pulse 71 Temp 37.7 ?C (99.9 ?F) (Temporal Artery) Resp 19 Ht 172.7 cm (5' 8) Wt 110.3 kg (243 lb 2.7 oz) SpO2 96% BMI 36.97 kg/m? General Appearance:In no apparent distress Affect:Pleasant and cooperative Eyes:Sclerae non-icteric Abdomen:Soft, non-tender Laboratory Results: Glucose (mg/dL) Date Value 09/23/2017 231 Potassium (mmol/L) Date Value 09/23/2017 4.4 Sodium (mmol/L) Date Value 09/23/2017 131 Chloride (mmol/L) Date Value 09/23/2017 92 CO2 (mmol/L) Date Value 09/23/2017 27 Creatinine (mg/dL) Date Value 09/23/2017 1.29 BUN (mg/dL) Date Value 09/23/2017 11 Anion Gap (mmol/L) Date Value 09/23/2017 12 Calcium (mg/dL) Date Value 09/23/2017 8.2 ALT Date Value Ref Range Status 09/23/2017 32 10 - 54 U/L Final AST Date Value Ref Range Status 09/23/2017 25 14 - 40 U/L Final Hemoglobin (g/dL) Date Value 09/23/2017 11.4 Hematocrit (%) Date Value 09/23/2017 34.3 WBC (k/uL) Date Value 09/23/2017 15.63 Platelet Count (k/uL) Date Value 09/23/2017 124 Hemoglobin A1C (%) Date Value 09/15/2017 8.8 LV Ejection Fraction (%) Date Value 09/13/2017 60 ? Diet: Diabetes Management in Hospital Hospital BG values or ranges: ? Date AM LUNCH DINNER HS 3AM 09/22 168 RHI Lantus 25u 214(h6) 207(h6) ? ? 7? 190(h3) Lantus 25u ? ?225(h6) ?192(h3) ? Impression/Recommendations Patient with uncontrolled Diabetes Mellitus Type 2 hyperglycemia s/p CABG whom we have been consulted for glycemic control.As appetite improves may need to add prandials or januvia .? 7:45 PM- start prandial for tomorrow RECOMMENDATIONS: ? Basal Insulin: Lantus 25 units QAM ? Start Prandial Insulin: Humalog (as needed) units AC TID ? Start Supplemental Sliding Scale: Humalog Program #3 AC AND2 HS and #1 x1 at 3 am ? Accuchecks: AC/HS and 3 AM x 1 ? Recommend As per Unit Dietitian ? Consult CDE regarding: DM Education including /TBD ? DM DISCHARGE PLAN: ? To be decided based on clinical course. ? Check blood sugars Three times a Day ? Diet: Low carbohydrate ? Exercise as prescribed by cardiology/ primary team ? Follow up with cable installation technician and box office clerk as recommended. ? Patient will need follow-up at the [facility] (X-[facility]) or with his home pacu nurse/PCP in 1-2 weeks after discharge. ? Diabetes Care Team Hospital Discharge Help Line: [phone] ? ? Mateus Tan [facility] Endocrine and Metabolism Royal Pager [phone] ; Covering DCT/Endo service today until 6 PM Please see On-Call Directory on Home Page for coverage after 6 PM EKG1 Observed: 09/23/2017 Status: F Source: [facility] 5:56 PM [facility] [place] REPOSITORY NAME : NOMAN STONE PID : [id number] : 1955 Gender : Male Race : ORD : Procedure Date : Sep 23 2017 17:56:13 Edit Date : Sep 29 2017 15:15:04 Diagnosis:NORMAL SINUS RHYTHM ST ELEVATION CONSIDER LATERAL INJURY OR ACUTE INFARCT ACUTE LA / STEMI ABNORMAL ECG Confirmed by JOCELIN GARCIA MD ([id number]) on 09/29/2017 3:14:58 PM Ventricular Rate : 73 BPM Atrial Rate : 73 BPM P-R Interval : 148 ms QRS Duration : 98 ms Q-T Interval : 374 ms QTC Calculation(Bezet) : 412 ms P [place] : 37 degrees R [place] : 16 degrees T [place] : 26 degrees Test Reason : Location : 54 : H51 03 Overread By : JOCELIN GARCIA MD Edited By : JOCELIN GARCIA MD Referred By : , Acquired by : [id number], CK, TOTAL AND CKMB Collected: 09/23/2017 Status: F Source: [place] 5:40 PM [facility] REPOSITORY TYPE CODE TESTS RESULT OUT OF RANGE REFERENCE UNITS LAB CK 51-298 U/L High CK 388 Result Comment: Please note the updated, gender-specific reference range for this test (effective 03/09/2016). LAB MB <7.7 ng/mL MB 2.8 LAB CKMBRI 0.0-4.0 % CK MB 0.7 % Performed By: #### CKCKMB, SARAY #### [facility] [address] [place], [place] [address] TROPONIN T Collected: 09/23/2017 Status: F Source: [place] 5:40 PM [facility] REPOSITORY TYPE CODE TESTS RESULT OUT OF REFERENCE UNITS RANGE LAB TROPT 0.000-0.029 ng/mL High Troponin T 0.414 Result Comment: Urgent value previously called 09/23/2017 Sha Caro Performed By: #### CKCKMB, SARAY #### [facility] [address] [place], [place] [address] GASA + ALL Collected: 09/23/2017 Status: F Source: [facility] FOR 5:39 PM [facility] RADIANCE USE ONLY REPOSITORY TYPE CODE TESTS RESULT OUT OF REFERENCE UNITS RANGE LAB PH 7.35-7.45 pH 7.41 LAB PCO2 34-46 mm Hg pCO2 42 LAB PO2 85-95 mm Hg pO2 High 102 LAB BE mmol/L Base Excess 1 LAB HCO3 22-26 mmol/L Bicarbonate 26 LAB CO2CT 22.0-28.0 mmol/L CO2 Content 27 LAB O2HB 95-98 % Oxyhemoglobin, Art. 96 LAB COHB 0-5.0 % Carboxyhemoglobin,A 1.9 rt LAB MHGB 0.4-1.5 % Methemoglobin 0.6 LAB TEMP C Temperature, Body 37.0 LAB PHTC 7.35-7.45 pH, Temp Corrected 7.41 LAB PCO2T 34-46 mm Hg pCO2, Temp Correct 42 LAB PO2T mm Hg pO2, Temp Corrected 102 LAB NAB 135-146 mmol/L Sodium,Whole Bld Low 131 LAB KWB 3.5-5.0 mmol/L Potassium, Whole Bld 4.1 LAB HGBB 13.0-17.0 g/dL Low Hemoglobin,Total,AC 10.4 L LAB HCTB 39.0-51.0 % Hematocrit, ACL Low 32 LAB IC 1.08-1.30 mmol/L Calcium, Ion, WB 1.18 LAB GLB 60-105 mg/dL Glucose,Whole Bld High 192 LAB LACT 0.5-2.2 mmol/L Lactate 1.1 Performed By: #### ALLBG #### [facility] [address] [place], [place] [address] PROGRESS Observed: 09/23/2017 Status: COMPLETED Source: [facility] 10:40 AM [facility] REPOSITORY HNO ID: [id number] Author: Beatriz Titus Service: Critical Care Author Type: Nurse Practitioner Type: Progress Notes Filed: 09/23/2017 10:42 AM Note Text: [facility] CV[facility] Note Name: Noman Stone Coordination of Care Note: Indication for Surgery: CAD LVEF: 60%, concentric LVH RVF: Mild Important/Relevant PMH/PSH: CAD (prior PCI to RCA, rPDA and LAD), PAD with prior LLE stent, HNT, HLD, DMII, ARNOLDO Preoperative Hospital Course (narrative): 61M with CAD (prior PCI to RCA, rPDA and LAD), PAD with prior LLE stent, HNT, HLD, DMII, ARNOLDO who presents with severe 3v CAD here for consideration of CABG. He describes slowly progressive angina over the last several months. Despite presenting with AF with slow ventricular response, he spontaneously cardioverted to sinus rhythm with normal HR (70s). Reasonable to consider CABG with MAZE and possible SHAD exclusion. Procedure/Surgeries: 09/21/2017 CABG x5 (MANCERA-LAD, SVG-D, SVG-OM, SVG-PDA-PLV), LAAL, PVI Airway Difficulty: Grade I - No special instrumentation OR Course: 2 pump runs, htn Pacing wires: Yes: Atrial and Ventricular: When discontinuing pacing wires: Pull all pacing wires Postoperative Course/General Impression: (narrative or log of major events with date of onset): Arrived to ICU intubated and sedated. Requiring ntg drip for htn. Extubated NOS. 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 Continue diuresis. ST changes on ECG, trending troponin AND ECG. Issues to communicate at signout: Daily dose warfarin Dilaudid SILK WORKER for pain tid heparin as patient does not want to wear IPCs dt prior fem-pop bypass Transfer to stepdown Discharge Planning: Anticipated Discharge Date: Unknown Unknown Care Management Discharge Needs: Needs Prior to Discharge: To Be Determined Other Problems I Reviewed and/or Managed During This Encounter: Problem A-Fib (Hcc) 09/21/2017 s/p PVI, LAAE A/P: Arrived to ICU in sinus rhythm, remains in sinus rhythm. Cad (Coronary Artery Disease) History: S/p ELZA to rRCA 2.5x28mm Promus Premier EES on 02/11/15 c/b dissection during cath not amenable to corrective intervention. 09/11/2016 Developed palpitations, CE negative, Abnormal stress test. LHC at [facility] showed triple vessel disease. Transferred to F for CABG eval. Last dose of Plavix 09/11/2016 09/21/2017 CABG x5 (MANCERA-LAD, SVG-D, SVG-OM, SVG-PDA-PLV), LAAL, PVI CAD Core Measures: Aspirin: Yes Beta blockers: Yes Statins: Resumed home dose of lipitor Atelectasis A/P: Bibasilar atelectasis noted on CXR. On 3L/NC . Wean O2 as tolerated to maintain SpO2 >93%. Encourage BPH. OOB to chair as tolerated. Peripheral arterial disease History : POA S/p multiple interventions Assessment: Pt reports he can not use IPCs due to poor circulartion peripheral pulses intact cont medical tx ABIs: Rt normal at rest. Lt mild disease at rest Consulted vascular surgery for claudication and severe PAD Stable PVD with near-joshua/normall ABIs (L NIKKI 0.89 and R NIKKI 1.04). ? Plan: -Still ok to proceed with planned CABG and LE vein harvest -Do not need to repeat formal PVRs at this time -Vascular Surgery will sign off, but please call with additional questions Pt states that he can't wear the support hoses and told not to wear the IPC's He is worried about this after surgery. A/P; tid heparin sq Htn (Hypertension) A/P: On Imdur 60mg, losartan 25mg, carvedilol 25mg BID, Norvasc 10mg., HCTZA 12.5mg and losartan at home. A/p Arrived to unit on NTG infusion, now off. MAPs remain within goal of 65-75. Continue carvedilol. 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 A/p Endocrine following. Continue lantus AND SSI for glucose control Hyperlipidemia History: POA: Home med: atorvastatin. Assessment: Component Latest Ref Rng AND Units 09/14/2017 Cholesterol, Total <200 mg/dL 123 Triglyceride <150 mg/dL 167 (H) HDL Cholesterol >39 mg/dL 34 (L) LDL Cholesterol <100 mg/dL 56 Non HDL Cholesterol <130 mg/dL 89 Fasting Time hrs Unknown VLDL Cholesterol <30 mg/dL 33 (H) TC:HDL Ratio <5.10 3.62 LDL:HDL Ratio <2.54 1.65 Plan: Continue atorvastatin. Stage 3 Chronic Kidney Disease (Hcc) History: POA, creat on admission was 1.35 09/16/17 increase in creat to 1.49 Dc losartan 09-14 Kidney u/s 09-17: no hydonephrosis 09/18 creatinine 1.52 09/19 creatinine 1.26 09/20 creatinine 1.38 Plan: Monitor Creat. post op and keep map >65, monitor uop Leukocytosis A/P: WBC 15.63. Remains afebrile, no signs of infection. Continue perioperative ABX and continue to monitor. PHYSICAL EXAM: Neuro: Follows commands, Alert and oriented x 3 and MARKS Cardiovascular: Rhythm: regular rate and rhythm Pulmonary: Breath sounds equal and Diminished breath sounds, magi bases Ventilator: N/A, patient is extubated CXR Findings: Atelectasis Bilateral, Increased Vascular Markings Bilateral and CXR personally viewed and interpreted by ICU staff Nurse Practitioner Gastrointestinal: Abdominal: Soft and Non-tender DAILY CVICU CHECKLIST VTE Prophylaxis: Pharmacologic Yes VTE Prophylaxis: Mechanical: No, Patient refusing Line infection prevention: Can CVC, PAC or arterial line be removed: No Continued need for urinary catheter: Yes - clinical indication: Patient post major surgery requiring fluid balance and input and output measurement. Restraints needed: No SIGNATURE: Beatriz Titus CNP DATE of SERVICE: 09/23/2017 TIME of SERVICE: 10:40 AM CK, TOTAL AND CKMB Collected: 09/23/2017 Status: F Source: [place] 10:35 AM [facility] REPOSITORY TYPE CODE TESTS RESULT OUT OF RANGE REFERENCE UNITS LAB CK 51-298 U/L High CK 528 Result Comment: Please note the updated, gender-specific reference range for this test (effective 03/09/2016). LAB MB <7.7 ng/mL MB 4.3 LAB CKMBRI 0.0-4.0 % CK MB 0.8 % Performed By: #### CKCKMB, SARAY #### [facility] [address] [place], [place] [address] TROPONIN T Collected: 09/23/2017 Status: F Source: [place] 10:35 AM [facility] REPOSITORY TYPE CODE TESTS RESULT OUT OF REFERENCE UNITS RANGE LAB TROPT 0.000-0.029 ng/mL High Troponin T 0.532 Result Comment: Called to and read back by: Karin Greco Main [id number] 09/23/2017 Sha Caro Performed By: #### CKCKMB, SARAY #### [facility] [address] [place], [place] [address] EKG1 Observed: 09/23/2017 Status: F Source: [place] 10:26 AM [facility] REPOSITORY NAME : NOMAN STONE PID : [id number] : 1955 Gender : Male Race : ORD : Procedure Date : Sep 23 2017 10:26:11 Edit Date : Oct 01 2017 17:58:17 Diagnosis:NORMAL SINUS RHYTHM ST ELEVATION, CONSIDER EARLY REPOLARIZATION, PERICARDITIS, OR INJURY ABNORMAL ECG Confirmed by YU ROY MD ([id number]) on 10/01/2017 5:58:08 PM Ventricular Rate : 75 BPM Atrial Rate : 75 BPM P-R Interval : 146 ms QRS Duration : 82 ms Q-T Interval : 362 ms QTC Calculation(Bezet) : 404 ms P [place] : 34 degrees R [place] : 14 degrees T [place] : 22 degrees Test Reason : Location : [address] [place] [address] Overread By : YU ROY MD Edited By : YU ROY MD Referred By : , Acquired by : [id number], GASA + ALL Collected: 09/23/2017 Status: F Source: [facility] 3:14 AM [facility] RADIANCE USE ONLY REPOSITORY TYPE CODE TESTS RESULT OUT OF REFERENCE UNITS RANGE LAB PH 7.35-7.45 pH 7.40 LAB PCO2 34-46 mm Hg pCO2 41 LAB PO2 85-95 mm Hg pO2 High 107 LAB BE mmol/L Base Excess 1 LAB HCO3 22-26 mmol/L Bicarbonate 25 LAB CO2CT 22.0-28.0 mmol/L CO2 Content 26 LAB O2HB 95-98 % Oxyhemoglobin, Art. 96 LAB COHB 0-5.0 % Carboxyhemoglobin,A 1.5 rt LAB MHGB 0.4-1.5 % Methemoglobin 0.9 LAB TEMP C Temperature, Body 37.0 LAB PHTC 7.35-7.45 pH, Temp Corrected 7.40 LAB PCO2T 34-46 mm Hg pCO2, Temp Correct 41 LAB PO2T mm Hg pO2, Temp Corrected 107 LAB NAB 135-146 mmol/L Sodium,Whole Bld Low 131 LAB KWB 3.5-5.0 mmol/L Potassium, Whole Bld 3.7 LAB HGBB 13.0-17.0 g/dL Low Hemoglobin,Total,AC 11.2 L LAB HCTB 39.0-51.0 % Hematocrit, ACL Low 35 LAB IC 1.08-1.30 mmol/L Calcium, Ion, WB 1.11 LAB GLB 60-105 mg/dL Glucose,Whole Bld High 198 LAB LACT 0.5-2.2 mmol/L Lactate 0.8 Performed By: #### ALLBG #### [facility] [address] [place], [place] [address] XR CHEST 1V FRONTAL Observed: 09/23/2017 Status: F Source: [facility] 2:41 AM [facility] REPOSITORY * * *Final Report* * * DATE OF EXAM: Sep 23 2017 2:41AM SHADI [id number] - XR CHEST 1V FRONTAL PORT / PROCEDURE REASON: Evaluate tube, line or lead position * * * * Physician Interpretation * * * * EXAMINATION: CHEST RADIOGRAPH (PORTABLE SINGLE VIEW AP) Exam Date/Time: 09/23/2017 2:41 AM Clinical History: Evaluate tube, line or lead position MQ: XCPMC_5 Comparison: 1 day prior RESULT: See impression. IMPRESSION: Lines, tubes, and devices: Patient is status post median sternotomy with right IJ central venous catheter, mediastinal drain and left- sided chest tube. Lungs and pleura: A trace left pleural effusion/pleural thickening is present. There is patchy bibasilar atelectasis. Borderline interstitial edema is present. Findings are essentially stable from the prior exam. No large pneumothorax is identified. Cardiomediastinal silhouette: The cardiomediastinal silhouette is unchanged. Other: . 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 Transcribe Date/Time: Sep 23 2017 9:24A Dictated by : KIRSTY CASTILLO MD This examination was interpreted and the report reviewed and electronically signed by: KIRSTY CASTILLO MD on Sep 23 2017 9:24AM EST [id number] GASA + ALL Collected: 09/23/2017 Status: F Source: [place] FOR 1:18 AM [facility] USE ONLY REPOSITORY TYPE CODE TESTS RESULT OUT OF REFERENCE UNITS RANGE LAB PH 7.35-7.45 pH 7.40 LAB PCO2 34-46 mm Hg pCO2 41 LAB PO2 85-95 mm Hg pO2 Low 81 LAB BE mmol/L Base Excess 1 LAB HCO3 22-26 mmol/L Bicarbonate 25 LAB CO2CT 22.0-28.0 mmol/L CO2 Content 26 LAB O2HB 95-98 % Oxyhemoglobin, Low Art. 94 LAB COHB 0-5.0 % Carboxyhemoglobin,A 1.6 rt LAB MHGB 0.4-1.5 % Methemoglobin 0.4 LAB TEMP C Temperature, Body 37.0 LAB PHTC 7.35-7.45 pH, Temp Corrected 7.40 LAB PCO2T 34-46 mm Hg pCO2, Temp Correct 41 LAB PO2T mm Hg pO2, Temp Corrected 81 LAB NAB 135-146 mmol/L Sodium,Whole Bld Low 130 LAB KWB 3.5-5.0 mmol/L Potassium, Whole Bld 4.0 LAB HGBB 13.0-17.0 g/dL Low Hemoglobin,Total,AC 11.3 L LAB HCTB 39.0-51.0 % Hematocrit, ACL Low 35 LAB IC 1.08-1.30 mmol/L Calcium, Ion, WB 1.17 LAB GLB 60-105 mg/dL Glucose,Whole Bld High 224 LAB LACT 0.5-2.2 mmol/L Lactate 1.1 Performed By: #### ALLBG #### [facility] [address] [place], [place] [address] CBC Collected: 09/23/2017 Status: F Source: [place] 1:00 [facility] REPOSITORY TYPE CODE TESTS RESULT OUT OF REFERENCE UNITS RANGE LAB WBC 3.70-11.00 k/uL WBC High 15.63 LAB RBC 4.20-6.00 m/uL Low RBC 3.78 LAB HGB 13.0-17.0 g/dL Low Hemoglobin 11.4 LAB HCT 39.0-51.0 % Low Hematocrit 34.3 LAB MCV 80.0-100.0 fL MCV 90.7 LAB MCH 26.0-34.0 pG MCH 30.2 LAB MCHC 30.5-36.0 g/dL MCHC 33.2 LAB RDWCV 11.5-15.0 % RDW-CV 14.1 LAB PLTCT 150-400 k/uL Low Platelet Count 124 Result Comment: Result checked and verified No clot detected. LAB MPV 9.0-12.7 fL MPV 11.1 LAB ABSNUC <0.01 k/uL Absolute nRBC <0.01 Performed By: #### CBC, PT, CMP #### [facility] [address] [place], [place] [address] PROTIME Collected: 09/23/2017 Status: F Source: [place] 1:00 [facility] REPOSITORY TYPE CODE TESTS RESULT OUT OF RANGE REFERENCE UNITS LAB PSEC 9.7-13.0 sec PT Sec 12.1 LAB INR 0.9-1.3 PT INR 1.2 Result Comment: Vitamin K Antagonist (VKA) Therapeutic Range: INR 2 to 3 (Target INR of 2.5) Note: For patients treated with VKA drugs, such as warfarin, the [place] [employer] 2012 Guideline recommends a therapeutic INR range of 2 to 3 (target INR of 2.5). This recommendation includes high-risk patients with antiphospholipid syndrome with previous arterial or venous thromboembolism, current-generation mechanical or bioprosthetic aortic heart valve replacement. Note: Patients with mechanical aortic valve replacement and additional risk factors for thromboembolic events (atrial fibrillation, previous thromboembolism, LV dysfunction, hypercoagulable conditions) or an older generation mechanical AVR (i.e., ball in-Cage) or any mechanical MVR should have a INR therapeutic range of 2.5 to 3.5 (target INR of 3). Bety BAKER, et al. Chest 2012, 141:7S-47S Joy BUHS et al. [facility] 2017, 70: 252-289 Performed By: #### CBC, PT, CMP #### [facility] [address] [place], [place] [address] COMP METABOLIC PANEL Collected: 09/23/2017 Status: F Source: [place] 1:00 AM [facility] REPOSITORY TYPE CODE TESTS RESULT OUT OF REFERENCE UNITS RANGE LAB TP 6.3-8.0 g/dL Low Protein, Total 5.7 LAB ALB 3.9-4.9 g/dL Low Albumin 3.0 LAB CA 8.5-10.2 mg/dL Low Calcium, Total 8.2 LAB TBIL 0.2-1.3 mg/dL Bilirubin, Total 0.5 LAB ALKP 36-108 U/L Low Alkaline Phosphatase 33 LAB AST 14-40 U/L AST 25 LAB GLU 74-99 mg/dL Glucose High 231 Result Comment: The [place] [employer] (ADA) provides guidance for cutoff values for fasting glucose and random glucose. The ADA defines fasting as no caloric intake for at least 8 hours. Fas ting plasma glucose results between 100 to 125 mg/dL indicate increased risk for diabetes (prediabetes). Fasting plasma glucose results greater than or equal to 126 mg/dL meet the criteria for diagnosis of diabetes. In the absence of unequivocal hyperglycemia, results should be confirmed by repeat testing. In a patient with classic symptoms of hyperglycemia or hyperglycemic crisis, random plasma glucose results greater than or equal to 200 mg/dL meet the criteria for diagnosis of diabetes. Reference: Standards of Medical Care in Diabetes 2016, [place] [employer]. Diabetes Care. 2016.39(Suppl 1). LAB BUN 9-24 mg/dL BUN 11 LAB CRET 0.73-1.22 mg/dL Creatinine High 1.29 LAB NA 136-144 mmol/L Low Sodium 131 LAB K 3.7-5.1 mmol/L Potassium 4.4 LAB CL 97-105 mmol/L Low Chloride 92 LAB CO2 22-30 mmol/L CO2 27 LAB AGAP 9-18 mmol/L Anion Gap 12 LAB ALT 10-54 U/L ALT 32 LAB GFRAA eGFR- Amer. >60 LAB GFRNAA . eGFR-All Other Races 56 Result Comment: eGFR (Estimated GFR) Units of measure: mL/min/1.73 meters squared eGFR is derived from the reexpressed MDRD Study equation using the following parameters: serum creatinine, age, gender and race. The creatinine assay has been calibrated to be traceable to IDMS. An eGFR <60 mL/min/1.73m2 for >3 months is consistent with chronic kidney disease. Refer to KDOQI guidelines for clinical interpretation. In patients with unstable renal function, e.g. those with acute kidney injury, the eGFR may not accurately reflect actual GFR. Performed By: #### CBC, PT, CMP #### [facility] [address] [place], [place] [address] GASA + ALL Collected: 09/22/2017 Status: F Source: [place] FOR 10:44 PM [facility] RADIANCE USE ONLY REPOSITORY TYPE CODE TESTS RESULT OUT OF REFERENCE UNITS RANGE LAB PH 7.35-7.45 pH 7.40 LAB PCO2 34-46 mm Hg pCO2 40 LAB PO2 85-95 mm Hg pO2 Low 79 LAB BE mmol/L Base Excess 0 LAB HCO3 22-26 mmol/L Bicarbonate 24 LAB CO2CT 22.0-28.0 mmol/L CO2 Content 25 LAB O2HB 95-98 % Oxyhemoglobin, Low Art. 94 LAB COHB 0-5.0 % Carboxyhemoglobin,A 1.7 rt LAB MHGB 0.4-1.5 % Methemoglobin 0.4 LAB TEMP C Temperature, Body 37.0 LAB PHTC 7.35-7.45 pH, Temp Corrected 7.40 LAB PCO2T 34-46 mm Hg pCO2, Temp Correct 40 LAB PO2T mm Hg pO2, Temp Corrected 79 LAB NAB 135-146 mmol/L Sodium,Whole Bld Low 130 LAB KWB 3.5-5.0 mmol/L Potassium, Whole Bld 4.0 LAB HGBB 13.0-17.0 g/dL Low Hemoglobin,Total,AC 11.6 L LAB HCTB 39.0-51.0 % Hematocrit, ACL Low 36 LAB IC 1.08-1.30 mmol/L Calcium, Ion, WB 1.16 LAB GLB 60-105 mg/dL Glucose,Whole Bld High 234 LAB LACT 0.5-2.2 mmol/L Lactate 1.0 Performed By: #### ALLBG #### [facility] [address] [place], [place] [address] GASA + ALL Collected: 09/22/2017 Status: F Source: [place] FOR 7:56 PM [facility] RADIANCE USE ONLY REPOSITORY TYPE CODE TESTS RESULT OUT OF REFERENCE UNITS RANGE LAB PH 7.35-7.45 pH Low 7.33 LAB PCO2 34-46 mm Hg pCO2 High 52 LAB PO2 85-95 mm Hg pO2 95 LAB BE mmol/L Base Excess 0 LAB HCO3 22-26 mmol/L Bicarbonate High 27 LAB CO2CT 22.0-28.0 mmol/L CO2 Content 28 LAB O2HB 95-98 % Oxyhemoglobin, Art. 95 LAB COHB 0-5.0 % Carboxyhemoglobin,A 1.2 rt LAB MHGB 0.4-1.5 % Methemoglobin 1.2 LAB TEMP C Temperature, Body 37.0 LAB PHTC 7.35-7.45 pH, Temp Low Corrected 7.33 LAB PCO2T 34-46 mm Hg pCO2, Temp High Correct 52 LAB PO2T mm Hg pO2, Temp Corrected 95 LAB NAB 135-146 mmol/L Sodium,Whole Bld Low 132 LAB KWB 3.5-5.0 mmol/L Potassium, Whole Bld 4.0 LAB HGBB 13.0-17.0 g/dL Low Hemoglobin,Total,AC 11.8 L LAB HCTB 39.0-51.0 % Hematocrit, ACL Low 36 LAB IC 1.08-1.30 mmol/L Calcium, Ion, WB 1.19 LAB GLB 60-105 mg/dL Glucose,Whole Bld High 177 LAB LACT 0.5-2.2 mmol/L Lactate 0.8 Performed By: #### ALLBG #### [facility] [address] [place], [place] [address] GASA + ALL Collected: 09/22/2017 Status: F Source: [place] FOR 4:13 PM [facility] RADIANCE USE ONLY REPOSITORY TYPE CODE TESTS RESULT OUT OF REFERENCE UNITS RANGE LAB PH 7.35-7.45 pH 7.38 LAB PCO2 34-46 mm Hg pCO2 42 LAB PO2 85-95 mm Hg pO2 105 High LAB BE mmol/L Base Excess 0 LAB HCO3 22-26 mmol/L Bicarbonate 25 LAB CO2CT 22.0-28.0 mmol/L CO2 Content 26 LAB O2HB 95-98 % 96 Oxyhemoglobin, Art. LAB COHB 0-5.0 % 1.3 Carboxyhemoglobin ,Art LAB MHGB 0.4-1.5 % 1.1 Methemoglobin LAB TEMP C 37.0 Temperature, Body LAB PHTC 7.35-7.45 pH, Temp 7.38 Corrected LAB PCO2T 34-46 mm Hg pCO2, Temp 42 Correct LAB PO2T mm Hg pO2, Temp 105 Corrected LAB NAB 135-146 mmol/L 131 Low Sodium,Whole Bld LAB KWB 3.5-5.0 mmol/L Potassium, 4.2 Whole Bld LAB HGBB 13.0-17.0 g/dL 11.8 Low Hemoglobin,Total, ACL LAB HCTB 39.0-51.0 % Hematocrit, 36 Low ACL LAB IC 1.08-1.30 mmol/L Calcium, 1.17 Ion, WB LAB GLB 60-105 mg/dL 207 High Glucose,Whole Bld LAB LACT 0.5-2.2 mmol/L Lactate 1.0 LAB ABGCOM Blood Gas O2 Comm, Art Administration Result Comment: 3L NC Performed By: #### ALLBG #### [facility] [address] [place], [place] [address] GASA + ALL Collected: 09/22/2017 Status: F Source: [place] FOR 1:20 PM [facility] RADIANCE USE ONLY REPOSITORY TYPE CODE TESTS RESULT OUT OF REFERENCE UNITS RANGE LAB PH 7.35-7.45 pH 7.37 LAB PCO2 34-46 mm Hg pCO2 43 LAB PO2 85-95 mm Hg pO2 High 115 LAB BE mmol/L Base Excess NEG 1 LAB HCO3 22-26 mmol/L Bicarbonate 24 LAB CO2CT 22.0-28.0 mmol/L CO2 Content 26 LAB O2HB 95-98 % Oxyhemoglobin, Art. 97 LAB COHB 0-5.0 % Carboxyhemoglobin,A 1.6 rt LAB MHGB 0.4-1.5 % Methemoglobin Low 0.1 LAB TEMP C Temperature, Body 37.0 LAB PHTC 7.35-7.45 pH, Temp Corrected 7.37 LAB PCO2T 34-46 mm Hg pCO2, Temp Correct 43 LAB PO2T mm Hg pO2, Temp Corrected 115 LAB NAB 135-146 mmol/L Sodium,Whole Bld Low 131 LAB KWB 3.5-5.0 mmol/L Potassium, Whole Bld 4.0 LAB HGBB 13.0-17.0 g/dL Low Hemoglobin,Total,AC 11.8 L LAB HCTB 39.0-51.0 % Hematocrit, ACL Low 36 LAB IC 1.08-1.30 mmol/L Calcium, Ion, WB 1.14 LAB GLB 60-105 mg/dL Glucose,Whole Bld High 214 LAB LACT 0.5-2.2 mmol/L Lactate 0.9 Performed By: #### ALLBG #### [facility] [address] [place], [place] [address] GASA + ALL Collected: 09/22/2017 Status: F Source: [place] FOR 11:29 AM [facility] RADIANCE USE ONLY REPOSITORY TYPE CODE TESTS RESULT OUT OF REFERENCE UNITS RANGE LAB PH 7.35-7.45 pH Low 7.34 LAB PCO2 34-46 mm Hg pCO2 45 LAB PO2 85-95 mm Hg pO2 High 128 LAB BE mmol/L Base Excess NEG 1 LAB HCO3 22-26 mmol/L Bicarbonate 24 LAB CO2CT 22.0-28.0 mmol/L CO2 Content 26 LAB O2HB 95-98 % Oxyhemoglobin, Art. 96 LAB COHB 0-5.0 % Carboxyhemoglobin,A 1.1 rt LAB MHGB 0.4-1.5 % Methemoglobin 1.1 LAB TEMP C Temperature, Body 37.0 LAB PHTC 7.35-7.45 pH, Temp Low Corrected 7.34 LAB PCO2T 34-46 mm Hg pCO2, Temp Correct 45 LAB PO2T mm Hg pO2, Temp Corrected 128 LAB NAB 135-146 mmol/L Sodium,Whole Bld Low 132 LAB KWB 3.5-5.0 mmol/L Potassium, Whole Bld 3.7 LAB HGBB 13.0-17.0 g/dL Low Hemoglobin,Total,AC 12.2 L LAB HCTB 39.0-51.0 % Hematocrit, ACL Low 37 LAB IC 1.08-1.30 mmol/L Calcium, Ion, WB 1.15 LAB GLB 60-105 mg/dL Glucose,Whole Bld High 190 LAB LACT 0.5-2.2 mmol/L Lactate 1.1 Performed By: #### ALLBG #### [facility] [address] [place], [place] [address] GASA + ALL Collected: 09/22/2017 Status: F Source: [place] FOR 9:29 AM [facility] RADIANCE USE ONLY REPOSITORY TYPE CODE TESTS RESULT OUT OF REFERENCE UNITS RANGE LAB PH 7.35-7.45 pH 7.39 LAB PCO2 34-46 mm Hg pCO2 40 LAB PO2 85-95 mm Hg pO2 121 High LAB BE mmol/L Base Excess NEG 1 LAB HCO3 22-26 mmol/L Bicarbonate 23 LAB CO2CT 22.0-28.0 mmol/L CO2 Content 25 LAB O2HB 95-98 % 96 Oxyhemoglobin, Art. LAB COHB 0-5.0 % 1.0 Carboxyhemoglobin ,Art LAB MHGB 0.4-1.5 % 1.0 Methemoglobin LAB TEMP C 37.0 Temperature, Body LAB PHTC 7.35-7.45 pH, Temp 7.39 Corrected LAB PCO2T 34-46 mm Hg pCO2, Temp 40 Correct LAB PO2T mm Hg pO2, Temp 121 Corrected LAB NAB 135-146 mmol/L 131 Low Sodium,Whole Bld LAB KWB 3.5-5.0 mmol/L Potassium, 4.6 Whole Bld LAB HGBB 13.0-17.0 g/dL 12.6 Low Hemoglobin,Total, ACL LAB HCTB 39.0-51.0 % Hematocrit, 39 ACL LAB IC 1.08-1.30 mmol/L Calcium, 1.15 Ion, WB LAB GLB 60-105 mg/dL 194 High Glucose,Whole Bld LAB LACT 0.5-2.2 mmol/L Lactate 1.1 LAB ABGCOM Blood Gas O2 Comm, Art Administration Result Comment: 5L NC LAB ACBDTE [id number] Notify Date, Art LAB ACBTME [id number] Notify Time, Art Performed By: #### ALLBG #### [facility] [address] [place], [place] [address] CONSULT Observed: 09/22/2017 Status: COMPLETED Source: [place] 9:18 AM [facility] REPOSITORY HNO ID: [id number] Author: Mateus Tan Service: Endocrinology Author Type: Nurse Practitioner Type: Consults Filed: 09/22/2017 6:30 PM Note Text: INITIAL CONSULT ENDOCRINOLOGY SERVICE DATE: 09/22/2017 SERVICE TIME: 9:18 AM Requesting Provider: Isabel Gray Opinion/Advice Regarding: Management of Diabetes Mellitus Type 2 hyperglycemia Service: DCT (Diabetes Care Team) Subjective HPI: Mr. Noman Stone is a 61 year old male with a 8 year history of Diabetes Mellitus Type 2 hyperglycemia who was admitted on 09/13/2017 for CABG . Past medical history significant for CAD (prior PCI to RCA, rPDA and LAD), PAD with prior LLE stent, HNT, HLD, DMII, ARNOLDO . Patient does not exercise. Last HbA1c was 8.8 on 09/15/17 .. He has a family history of diabetes in his maternal GF. He is followed by PCP for his diabetes. DIABETIC COMPLICATIONS: Nephropathy: Diabetic chronic kidney disease Neuropathy: [place] Pre-Admission DM Regimen: Preadmission oral agents: Dulaglutide (Trulicity) 0.75 and 1.5 mg pen (once weekly) Preadmission insulin regimen: Lantus 30 units Q HS Self Monitoring Blood Glucose: Type of Monitor: Freestyle Frequency of Monitoring: Three times a Day BG Values: 150-220 Hypoglycemia: Frequency:none in many months -happens when working to long in yard /outside PAST MEDICAL HISTORY Diagnosis Date - Acute renal failure (HCC) - CAD (coronary artery disease) - Diabetes mellitus (HCC) 11/17/2010 - Essential hypertension, benign - GERD (gastroesophageal reflux disease) 11/17/2010 - H/O percutaneous transluminal coronary angioplasty - Hyperlipidemia - Low testosterone 12/12/2011 - Other and unspecified hyperlipidemia - PAD (peripheral artery disease) ([facility]) - Paroxysmal atrial fibrillation (HCC) - Raynaud's syndrome - Shift work sleep disorder 05/03/2015 - Type 2 diabetes mellitus with stage 3 chronic kidney disease, with long-term current use of insulin (HCC) 12/09/2015 - Type II or unspecified type diabetes mellitus with peripheral circulatory disorders, uncontrolled(250.72) 08/28/2013 PAST SURGICAL HISTORY Procedure Laterality Date - COLONOSCOP W/ OR W/O [facility] SPEC 04-12-10 - COLONOSCOPY W/BX 07-07-15 - EGD W/O [facility] SPECIMEN W/BX 07-07-15 - HEART CATHETERIZATION 2008 with stents - PAST SURGICAL HISTORY OF 10/03/10 bilat lower extremity arteriogram with angioplasty - PAST SURGICAL HISTORY OF 03/09/10 Bilat lower ext arteriogram left pop and sup fem artery angioplasty - PAST SURGICAL HISTORY OF 09/14/05 bilat arteriogram with left pop manometry - PLACE CATH SUBSUBSELECT ART,ABD/PEL 09/14/05 - REM LESION NEC,HAND,SCAL<0.5CM 01/29/10 Exc. right infra-auricular lesion - REM LESION NEC,HAND,SCAL<0.5CM 12/10/13 EXc. right foot lesion - REPAIR ING HERNIA,5+Y/O,REDUCIBL 1963 Hernia repair, inguinal - REVSC OPN/PRG FEM/POP W/ANGIOPLASTY UNI 05-11-10 RIGHT POP - REVSC OPN/PRG FEM/POP W/ANGIOPLASTY UNI 02/17/08 right fem with angioplasty,catheter placed right pop,right sfa,LLE ateriogram - REVSC OPN/PRG FEM/POP W/ANGIOPLASTY UNI 11/26/07 L fem angio with stenting and smart stent placed - REVSC OPN/PRG FEM/POP W/ANGIOPLASTY UNI 07-17-11 left leg - REVSC OPN/PRQ FEM/POP W/ATHRC/ANGIOP [facility] 05-11-10 RIGHT SFA - REVSC OPN/PRQ TIB/NI W/ANGIOPLASTY UNI 05-11-10 RIGHT - REVSC OPN/PRQ TIB/NI W/ANGIOPLASTY UNI 01-09-14 - REVSC OPN/PRQ TIB/NI W/ATHRC/ANGIOP [facility] 07-03-11 right leg - REVSC OPN/PRQ TIB/NI W/ATHRC/ANGIOP [facility] 02-10-13 RIGHT FAMILY HISTORY Problem Relation Age of Onset - Heart Father - Hypertension Maternal Grandmother - GI Maternal Grandmother - Heart Paternal Grandfather - Cancer Mother lung - Cancer Sister Non hodgkins lymphoma - Diabetes Maternal Grandfather Social History Substance Use Topics - Smoking status: Never Smoker - Smokeless tobacco: Never Used - Alcohol use Yes MEDICATIONS: Prescriptions Prior to Admission: TRULICITY 1.5 mg/0.5 mL pnij INJECT 1.5MG SUBCUTANEOUSLY ONCE EACH WEEK, DISCARD PEN AFTER Disp: 12 Pen Rfl: 3 losartan (COZAAR) 25 mg tablet Take 1 tablet by mouth once daily. Disp: 30 tablet Rfl: 11 isosorbide mononitrate ER (IMDUR) 60 mg 24 hr tablet Take 1 tablet by mouth once daily. Disp: 90 tablet Rfl: 3 carvedilol (COREG) 25 mg tablet Take 1 tablet by mouth twice daily with meals. Disp: 180 tablet Rfl: 3 insulin glargine (LANTUS U-100 INSULIN) 100 unit/mL injection Inject 30 Units subcutaneously daily at bedtime. Via Syringe Disp: 3 Vial Rfl: 3 atorvastatin (LIPITOR) 80 mg tablet Take 1 tablet by mouth once daily. Disp: 90 tablet Rfl: 3 HYDROcodone-acetaminophen (NORCO) 5-325 mg per tablet Take 1 tablet by mouth twice daily as needed for Pain for up to 30 days. Disp: 60 tablet Rfl: 0 HYDROcodone-acetaminophen (NORCO) 5-325 mg per tablet Take 1 tablet by mouth twice daily as needed for Pain for up to 30 days.Earliest Fill Date: 05/05/17 Disp: 60 tablet Rfl: 0 HYDROcodone-acetaminophen (NORCO) 5-325 mg per tablet Take 1 tablet by mouth twice daily as needed for Pain for up to 30 days.Earliest Fill Date: 06/02/17 Disp: 60 tablet Rfl: 0 amLODIPine (NORVASC) 10 mg tablet Take 1 tablet by mouth once daily. Disp: 30 tablet Rfl: 11 gemfibrozil (LOPID) 600 mg tablet Take 0.5 tablets by mouth twice daily. Disp: 90 tablet Rfl: 3 Hydrochlorothiazide 12.5 mg capsule TAKE 1 CAPSULE BY MOUTH ONCE DAILY Disp: 30 capsule Rfl: 3 clopidogrel (PLAVIX) 75 mg tablet Take 1 tablet by mouth once daily. Disp: 90 tablet Rfl: 3 Magnesium Oxide 500 mg cap Take 500 mg by mouth once daily. Disp: Rfl: 0 Insulin Syringe-Needle U-100 (BD INSULIN SYRINGE ULTRAFINE) 0.3 mL 31 gauge x 5/16 syrg 10 Units once daily. Disp: 100 Syringe Rfl: 11 nitroglycerin sublingual (NITROSTAT) 0.4 mg SL tablet Dissolve 1 tablet under the tongue as needed. DISSOLVE ON TONGUE FOR CHEST PAIN. IF NO PAIN RELIEF, CALL 911 Disp: 25 tablet Rfl: 6 blood sugar diagnostic (FREESTYLE LITE STRIPS) test strip TEST BLOOD SUGAR ONCE DAILY. DX: E11.65. Insulin: No Disp: 100 Strip Rfl: 3 Cholecalciferol, Vitamin D3, 1,000 unit cap Take 1 capsule by mouth once daily. (Patient taking differently: Take 5,000 Units by mouth once daily.) Disp: Rfl: 0 aspirin(ECOTRIN LOW STRENGTH 81 MG TAB) Take one(1) tablet daily. Disp: Rfl: 0 Current hospital medications: oxyCODONE IR 5-10 mg tab(s) (ROXICODONE) 5-10 mg ORAL/FEEDING TUBE q 4 H PRN carvedilol 6.25 mg tab(s) (COREG) 6.25 mg ORAL BID w MEALS HYDROmorphone SILK WORKER 0.5 mg/mL in NaCl 0.9% 100 mL INTRAVENOUS CONTINUOUS HYDROmorphone 0.5 mg/mL SILK WORKER CLINICIAN DOSE 0.4 mg 0.4 mg INTRAVENOUS q 6 H PRN heparin 5,000 Units injection 5,000 Units SUBCUTANEOUS q [address] 20 mg tab(s) (PROTONIX) 20 mg ORAL DAILY (6 AM) pantoprazole 20 mg CUP (PROTONIX) 20 mg ORAL/FEEDING TUBE DAILY (6 AM) senna-docusate 8.6-50 mg 1 tablet (SENNA-S) 1 tablet ORAL BID bisacodyl 10 mg suppository (DULCOLAX) 10 mg RECTAL DAILY PRN ondansetron (PF) 4 mg injection (ZOFRAN) 4 mg INTRAVENOUS q 6 H PRN potassium chloride iv piggyback 10 mEq/100mL 10 mEq INTRAVENOUS PRN potassium chloride iv piggyback 20 mEq/50 mL 20 mEq INTRAVENOUS PRN potassium chloride 40-120 mEq oral powder (KLOR-CON) 40-120 mEq ORAL/FEEDING TUBE PRN 0.9% NaCl 3-5 mL 3-5 mL INTRAVENOUS q 12 H 0.9% NaCl 10 mL 10 mL INTRAVENOUS q 12 H insulin regular human iv bolus 2-10 Units 2-10 Units INTRAVENOUS PRN insulin regular 250 units in NaCl 0.9% 250 mL iv infusion - HVI CVICU NOMOGRAM 0.5-40 Units/hr INTRAVENOUS CONTINUOUS dextrose 50% in water 25 mL syringe 12.5 g INTRAVENOUS PRN dextrose 5% in NaCl 0.2% iv infusion 5 mL/hr INTRAVENOUS CONTINUOUS insulin glargine 0-40 Units pen (long acting) (LANTUS SOLOSTAR, BASAGLAR KWIKPEN) 0-40 Units SUBCUTANEOUS As Directed nitroglycerin 50 mg in D5W 250 mL 5-200 mcg/min INTRAVENOUS CONTINUOUS nitroglycerin injection 100 mcg injection syringe 100 mcg INTRAVENOUS PRN PHENYLephrine 0.1 mg injection 100 mcg INTRAVENOUS PRN naloxone 0.04 mg injection (NARCAN) 0.04 mg INTRAVENOUS PRN lidocaine 5 % 1 Patch (LIDODERM) 1 Patch TRANSDERMAL DAILY lidocaine patch - REMOVE OTHER AT BEDTIME lidocaine - VERIFY PATCH OTHER q 8 H acetaminophen 1,000 mg tab(s) (TYLENOL) 1,000 mg ORAL q 6 H acetaminophen 1,000 mg CUP (TYLENOL) 1,000 mg NASOGASTRIC q 6 H [START ON 09/25/2017] acetaminophen 650 mg tab(s) (TYLENOL) 650 mg ORAL/FEEDING TUBE q 4 H PRN ciprofloxacin 400 mg in D5W 200 mL (CIPRO) 400 mg INTRAVENOUS q 12 HR vancomycin iv piggyback 1 g in D5W 200 mL (VANCOCIN) 1 g INTRAVENOUS q 12 HR aspirin 162 mg chewable tab(s) 162 mg ORAL/FEEDING TUBE DAILY propofol infusion (DIPRIVAN) 5-60 mcg/kg/min INTRAVENOUS CONTINUOUS propofol iv bolus 10-50 mg (DIPRIVAN) 10-50 mg INTRAVENOUS q 1 H PRN lidocaine 5 % 1 Patch (LIDODERM) 1 Patch TRANSDERMAL DAILY lidocaine patch - REMOVE OTHER AT BEDTIME lidocaine - VERIFY PATCH OTHER q 8 H atorvastatin 80 mg tab(s) (LIPITOR) 80 mg ORAL AT BEDTIME niCARdipine 125 mg in NaCl 0.9% 250 mL (CARDENE) 2.5-15 mg/hr INTRAVENOUS CONTINUOUS ALLERGIES Allergen Reactions - Adhesive Rash Redness to skin - Lisinopril Cough - Penicillins Unknown childhood COMPLETE REVIEW OF SYSTEMS: WEIGHT: Stable EYES: Normal HYDRATION: No polydypsia or thirst CARDIAC: Chest pain RESPIRATORY: Positive for shortness of breath on exertion GI: no nausea, fullness, vomiting, diarrhea, constipation, GI bleeding or heartburn : no dysuria, frequency, hesitancy, hematuria, polyuria or nocturia SKIN: normal MUSCULOSKELETAL: Joint pain both legs NERVOUS SYSTEM: numbness of the feet ALL OTHER SYSTEMS: normal Last Eye Exam: yearly Last Podiatry Exam: sees vascular MD Objective PHYSICAL EXAM: BP 129/72 Pulse 78 Temp 36.2 ?C (97.2 ?F) (Oral) Resp 18 Ht 172.7 cm (5' 8) Wt 103.7 kg (228 lb 11.2 oz) SpO2 98% BMI 34.77 kg/m? Body mass index is 34.77 kg/m?. Appearance: Obese Eyes: PERRLA, conjunctiva and sclera normal Neck: Supple, no adenopathy; thyroid symmetric, normal size, no bruits Heart: Heart sounds distant Lungs Lungs clear to auscultation. No wheezing, rhonchi, rales Abdomen bowel sounds hypoactive, no bruits, soft, non-tender, non-distended Extremities: Edema: @+ Generalized Neuro: Awake, alert and oriented x 3 and No involuntary motions. Feet: Shoes and socks removed and No deformities, ulcers, calluses Skin: Color, texture, turgor normal. No rashes or lesions Laboratory Results: Hemoglobin (g/dL) Date Value 09/22/2017 12.0 Hematocrit (%) Date Value 09/22/2017 36.0 WBC (k/uL) Date Value 09/22/2017 13.11 Platelet Count (k/uL) Date Value 09/22/2017 129 Potassium (mmol/L) Date Value 09/22/2017 4.5 Sodium (mmol/L) Date Value 09/22/2017 133 Magnesium (mg/dL) Date Value 09/14/2017 2.2 Creatinine (mg/dL) Date Value 09/22/2017 1.46 BUN (mg/dL) Date Value 09/22/2017 12 Glucose (mg/dL) Date Value 09/22/2017 186 PT INR (no units) Date Value 09/20/2017 1.1 TSH (uU/mL) Date Value 02/11/2015 3.620 Lipids: Cholesterol, Total (mg/dL) Date Value 09/14/2017 123 HDL Cholesterol (mg/dL) Date Value 09/14/2017 34 LDL Cholesterol (mg/dL) Date Value 09/14/2017 56 Triglyceride (mg/dL) Date Value 09/14/2017 167 Albumin (g/dL) Date Value 09/22/2017 2.9 (L) Bilirubin, Total (mg/dL) Date Value 09/22/2017 0.8 Alkaline Phosphatase (U/L) Date Value 09/22/2017 32 (L) AST (U/L) Date Value 09/22/2017 61 (H) ALT (U/L) Date Value 09/22/2017 44 Protein, Total (g/dL) Date Value 09/22/2017 5.6 (L) LV Ejection Fraction (%) Date Value 09/13/2017 60 Hemoglobin A1C (%) Date Value 09/15/2017 8.8 04/02/2016 9.5 02/11/2015 8.8 Diabetes Management in Hospital Hospital BG values or ranges: Date AM LUNCH DINNER HS 3AM 09/22 168 RHI Lantus 25u 214(h6) 207(h6) Diabetes Management Prior to the Consultation/HPI: RHI Other Pertinent Medications: Continuous Infusion:D5 TKO Diet: NPO Impression/Recommendations Patient with uncontrolled Diabetes Mellitus Type 2 hyperglycemia s/p CABG whom we have been consulted for glycemic control.In ICU on RHI - will transition off with MDI and follow RECOMMENDATIONS: ? Start Basal Insulin: Lantus 25 units QAM ? Start Prandial Insulin: Humalog (as needed) units AC TID ? Start Supplemental Sliding Scale: Humalog Program #3 AC AND2 HS and #1 x1 at 3 am ? Accuchecks: AC/HS and 3 AM x 1 ? Recommend As per Unit Dietitian ? Consult CDE regarding: DM Education including /TBD DM DISCHARGE PLAN: ? To be decided based on clinical course. ? Check blood sugars Three times a Day ? Diet: Low carbohydrate ? Exercise as prescribed by cardiology/ primary team ? Follow up with cable installation technician and box office clerk as recommended. ? Patient will need [facility] at [facility] ([facility]) or with his home pacu nurse/PCP in 1-2 weeks after discharge. ? Diabetes Care Team Hospital Discharge Help Line: [phone] SIGNATURE: Mateus Tan APRN.CNP PATIENT NAME: Noman Stone DATE: September 22, 2017 TIME: 9:18 AM PAGER/CONTACT #: [id number] GASA + ALL Collected: 09/22/2017 Status: F Source: [facility] 7:18 AM [facility] USE ONLY REPOSITORY TYPE CODE TESTS RESULT OUT OF REFERENCE UNITS RANGE LAB PH 7.35-7.45 pH 7.37 LAB PCO2 34-46 mm Hg pCO2 41 LAB PO2 85-95 mm Hg pO2 High 107 LAB BE mmol/L Base Excess NEG 1 LAB HCO3 22-26 mmol/L Bicarbonate 23 LAB CO2CT 22.0-28.0 mmol/L CO2 Content 24 LAB O2HB 95-98 % Oxyhemoglobin, Art. 96 LAB COHB 0-5.0 % Carboxyhemoglobin,A 1.3 rt LAB MHGB 0.4-1.5 % Methemoglobin 0.5 LAB TEMP C Temperature, Body 37.0 LAB PHTC 7.35-7.45 pH, Temp Corrected 7.37 LAB PCO2T 34-46 mm Hg pCO2, Temp Correct 41 LAB PO2T mm Hg pO2, Temp Corrected 107 LAB NAB 135-146 mmol/L Sodium,Whole Bld Low 132 LAB KWB 3.5-5.0 mmol/L Potassium, Whole Bld 4.4 LAB HGBB 13.0-17.0 g/dL Low Hemoglobin,Total,AC 12.5 L LAB HCTB 39.0-51.0 % Hematocrit, ACL 39 LAB IC 1.08-1.30 mmol/L Calcium, Ion, WB 1.17 LAB GLB 60-105 mg/dL Glucose,Whole Bld High 168 LAB LACT 0.5-2.2 mmol/L Lactate 1.1 Performed By: #### ALLBG #### [facility] [address] [place], [place] [address] GASA + ALL Collected: 09/22/2017 Status: F Source: [facility] 4:41 AM [facility] RADIANCE USE ONLY REPOSITORY TYPE CODE TESTS RESULT OUT OF REFERENCE UNITS RANGE LAB PH 7.35-7.45 pH 7.41 LAB PCO2 34-46 mm Hg pCO2 41 LAB PO2 85-95 mm Hg pO2 Low 70 LAB BE mmol/L Base Excess 1 LAB HCO3 22-26 mmol/L Bicarbonate 25 LAB CO2CT 22.0-28.0 mmol/L CO2 Content 26 LAB O2HB 95-98 % Oxyhemoglobin, Low Art. 92 LAB COHB 0-5.0 % Carboxyhemoglobin,A 1.5 rt LAB MHGB 0.4-1.5 % Methemoglobin 0.7 LAB TEMP C Temperature, Body 37.0 LAB PHTC 7.35-7.45 pH, Temp Corrected 7.41 LAB PCO2T 34-46 mm Hg pCO2, Temp Correct 41 LAB PO2T mm Hg pO2, Temp Corrected 70 LAB NAB 135-146 mmol/L Sodium,Whole Bld Low 133 LAB KWB 3.5-5.0 mmol/L Potassium, Whole Bld 3.6 LAB HGBB 13.0-17.0 g/dL Low Hemoglobin,Total,AC 12.4 L LAB HCTB 39.0-51.0 % Hematocrit, ACL Low 38 LAB IC 1.08-1.30 mmol/L Calcium, Ion, WB 1.15 LAB GLB 60-105 mg/dL Glucose,Whole Bld 100 LAB LACT 0.5-2.2 mmol/L Lactate 0.9 Performed By: #### ALLBG #### [facility] [address] [place] [id number] PROGRESS Observed: 09/22/2017 Status: COMPLETED Source: [place] 2:40 AM [facility] REPOSITORY HNO ID: [id number] Author: Waqas Nunez Service: Critical Care Author Type: Nurse Practitioner Type: Progress Notes Filed: 09/22/2017 5:53 AM Note Text: [facility] Note Name: Noman Stone Coordination of Care Note: Indication for Surgery: CAD LVEF: 60%, concentric LVH RVF: Mild Important/Relevant PMH/PSH: CAD (prior PCI to RCA, rPDA and LAD), PAD with prior LLE stent, HNT, HLD, DMII, ARNOLDO Preoperative Hospital Course (narrative): 61M with CAD (prior PCI to RCA, rPDA and LAD), PAD with prior LLE stent, HNT, HLD, DMII, ARNOLDO who presents with severe 3v CAD here for consideration of CABG. He describes slowly progressive angina over the last several months. Despite presenting with AF with slow ventricular response, he spontaneously cardioverted to sinus rhythm with normal HR (70s). Reasonable to consider CABG with MAZE and possible SHAD exclusion. Procedure/Surgeries: 09/21/2017 CABG x5 (MANCERA-LAD, SVG-D, SVG-OM, SVG-PDA-PLV), LAAL, PVI Airway Difficulty: Grade I - No special instrumentation OR Course: 2 pump runs, htn Pacing wires: Yes: Atrial and Ventricular: When discontinuing pacing wires: Pull all pacing wires Postoperative Course/General Impression: (narrative or log of major events with date of onset): Arrived to ICU intubated and sedated. Requiring ntg drip for htn. Extubated NOS Issues to communicate at signout: 09/22/2017 MAP goal 65-75 Discuss need to resume plavix with CTS Discharge Planning: Anticipated Discharge Date: Unknown Unknown Care Management Discharge Needs: Needs Prior to Discharge: To Be Determined Other Problems I Reviewed and/or Managed During This Encounter: Problem A-Fib (Hcc) 09/21/2017 s/p PVI, LAAE A/P: Arrived to ICU in sinus rhythm, remains in sinus rhythm. Cad (Coronary Artery Disease) History: S/p ELZA to rRCA 2.5x28mm Promus Premier EES on 02/11/15 c/b dissection during cath not amenable to corrective intervention. 09/11/2016 Developed palpitations, CE negative, Abnormal stress test. LHC at [facility] showed triple vessel disease. Transferred to [facility] for CABG eval. Last dose of Plavix 09/11/2016 09/21/2017 CABG x5 (MANCERA-LAD, SVG-D, SVG-OM, SVG-PDA-PLV), LAAL, PVI CAD Core Measures: Aspirin: Yes - discuss resumption of plavix with CTS Beta blockers: No - due to not indicated at this time Statins: Resumed home dose of lipitor Atelectasis A/P: Bibasilar atelectasis noted on CXR. On 6L/NC . Wean O2 as tolerated to maintain SpO2 >93%. Encourage BPH. OOB to chair as tolerated. Htn (Hypertension) A/P: On Imdur 60mg, losartan 25mg, carvedilol 25mg BID, Norvasc 10mg., HCTZA 12.5mg and losartan at home. Arrived to unit on NTG infusion, now off. MAPs remain within goal of 65-75. Will continue to monitor and restart home medications as needed. Pain, Postoperative, Acute A/P: Optimize pain control with lidocaine patches, fentanyl SILK WORKER, and PRN oxycodone. Diabetes Mellitus Type 2 With Peripheral Artery Disease (Hcc) A/P: Perioperative insulin resistance and exacerbation of hyperglycemia. HGA1C 8.8; on Januvia, glimepiride, metformin. RHI drip per CVICU nomogram. Will transition to SSI when able. Hyperlipidemia History: POA: Home med: atorvastatin. Assessment: Component Latest Ref Rng AND Units 09/14/2017 Cholesterol, Total <200 mg/dL 123 Triglyceride <150 mg/dL 167 (H) HDL Cholesterol >39 mg/dL 34 (L) LDL Cholesterol <100 mg/dL 56 Non HDL Cholesterol <130 mg/dL 89 Fasting Time hrs Unknown VLDL Cholesterol <30 mg/dL 33 (H) TC:HDL Ratio <5.10 3.62 LDL:HDL Ratio <2.54 1.65 Plan: Continue atorvastatin. Leukocytosis A/P: WBC 13.11. Remains afebrile, no signs of infection. Continue perioperative ABX and continue to monitor. PHYSICAL EXAM: BP 129/72 Pulse 75 Temp 36 ?C (96.8 ?F) (Oral) Resp 22 Ht 172.7 cm (5' 8) Wt 103.7 kg (228 lb 11.2 oz) SpO2 97% BMI 34.77 kg/m? Intake/Output Summary (Last 24 hours) at 09/22/17 0241 Last data filed at 09/22/17 0130 Gross per 24 hour Intake 3603.4 ml Output 1665 ml Net 1938.4 ml Neuro: Awake, Follows commands and MARKS Cardiovascular: Rhythm: regular rate and rhythm and Rate:normal sinus rhythm Pulmonary: Clear to auscultation, Breath sounds equal and Diminished breath sounds in bases Ventilator: N/A, patient is extubated, on 6L/NC CXR Findings: Bilateral atelectasis with pulmonary edema. No significant PTX CXR personally viewed and interpreted by ICU staff Nurse Practitioner Gastrointestinal: Abdominal: Soft, Non-tender and Bowel sounds yes WBC (k/uL) Date Value 09/22/2017 13.11 (H) RBC (m/uL) Date Value 09/22/2017 4.05 (L) Hemoglobin (g/dL) Date Value 09/22/2017 12.0 (L) Hematocrit (%) Date Value 09/22/2017 36.0 (L) MCV (fL) Date Value 09/22/2017 88.9 MCH (pG) Date Value 09/22/2017 29.6 MCHC (g/dL) Date Value 09/22/2017 33.3 RDW-CV (%) Date Value 09/22/2017 13.6 Platelet Count (k/uL) Date Value 09/22/2017 129 (L) MPV (fL) Date Value 09/22/2017 10.7 Glucose (mg/dL) Date Value 09/22/2017 186 (H) BUN (mg/dL) Date Value 09/22/2017 12 Creatinine (mg/dL) Date Value 09/22/2017 1.46 (H) Sodium (mmol/L) Date Value 09/22/2017 133 (L) Potassium (mmol/L) Date Value 09/22/2017 4.5 Chloride (mmol/L) Date Value 09/22/2017 99 CO2 (mmol/L) Date Value 09/22/2017 24 Protein, Total (g/dL) Date Value 09/22/2017 5.6 (L) Albumin (g/dL) Date Value 09/22/2017 2.9 (L) Calcium (mg/dL) Date Value 09/22/2017 8.1 (L) Alkaline Phosphatase (U/L) Date Value 09/22/2017 32 (L) Bilirubin, Total (mg/dL) Date Value 09/22/2017 0.8 AST (U/L) Date Value 09/22/2017 61 (H) ALT (U/L) Date Value 09/22/2017 44 Cholesterol, Total (mg/dL) Date Value 09/14/2017 123 Triglyceride (mg/dL) Date Value 09/14/2017 167 (H) DAILY CVICU CHECKLIST VTE Prophylaxis: Pharmacologic Yes VTE Prophylaxis: Mechanical: No - because patient refusal Line infection prevention: Can CVC, PAC or arterial line be removed: Yes - Remove arterial line and Remove PA catheter Continued need for urinary catheter: Yes - clinical indication: Patient post major surgery requiring fluid balance and input and output measurement. Restraints needed: No Level 3 SIGNATURE: Waqas Nunez CNP DATE of SERVICE: 09/22/2017 TIME of SERVICE: 2:40 AM GASA + ALL Collected: 09/22/2017 Status: F Source: [facility] 2:36 AM [facility] RADIANCE USE ONLY REPOSITORY TYPE CODE TESTS RESULT OUT OF REFERENCE UNITS RANGE LAB PH 7.35-7.45 pH 7.41 LAB PCO2 34-46 mm Hg pCO2 40 LAB PO2 85-95 mm Hg pO2 94 LAB BE mmol/L Base Excess 1 LAB HCO3 22-26 mmol/L Bicarbonate 25 LAB CO2CT 22.0-28.0 mmol/L CO2 Content 26 LAB O2HB 95-98 % Oxyhemoglobin, Art. 95 LAB COHB 0-5.0 % Carboxyhemoglobin,A 1.4 rt LAB MHGB 0.4-1.5 % Methemoglobin 0.8 LAB TEMP C Temperature, Body 37.0 LAB PHTC 7.35-7.45 pH, Temp Corrected 7.41 LAB PCO2T 34-46 mm Hg pCO2, Temp Correct 40 LAB PO2T mm Hg pO2, Temp Corrected 94 LAB NAB 135-146 mmol/L Sodium,Whole Bld Low 131 LAB KWB 3.5-5.0 mmol/L Potassium, Whole Bld 3.8 LAB HGBB 13.0-17.0 g/dL Low Hemoglobin,Total,AC 12.7 L LAB HCTB 39.0-51.0 % Hematocrit, ACL 39 LAB IC 1.08-1.30 mmol/L Calcium, Ion, WB 1.16 LAB GLB 60-105 mg/dL Glucose,Whole Bld High 124 LAB LACT 0.5-2.2 mmol/L Lactate 1.0 Performed By: #### ALLBG #### [facility] [address] [place], [place] [address] XR CHEST 1V FRONTAL Observed: 09/22/2017 Status: F Source: [facility] 12:41 AM [facility] REPOSITORY * * *Final Report* * * DATE OF EXAM: Sep 22 2017 12:41AM [id number] - XR CHEST 1V FRONTAL PORT / PROCEDURE REASON: Evaluate tube, line or lead position * * * * Physician Interpretation * * * * EXAMINATION: CHEST RADIOGRAPH (PORTABLE SINGLE VIEW AP) Exam Date/Time: 09/22/2017 12:41 AM Clinical History: Evaluate tube, line or lead position MQ: XCPMC_5 Comparison: 1 day prior RESULT: See impression. IMPRESSION: Lines, tubes, and devices: Interval extubation and removal of the NG/OG tube. Right IJ catheter, mediastinal drains, and left thoracostomy tube are present. Patient is status post median sternotomy. Lungs and pleura: The lungs are hypoinflated. Right hemidiaphragm is mildly elevated. There is vascular crowding and borderline edema pattern. Bibasilar opacities likely represent atelectasis given the shallow inspiration. There may be a small left pleural effusion. No substantial pneumothorax identified. Cardiomediastinal silhouette: Stable mild enlargement of the cardiomediastinal silhouette likely accentuated by portable technique and shallow inspiration. Other: . 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 Transcribe Date/Time: Sep 22 2017 7:24A Dictated by : BONI YATES MD This examination was interpreted and the report reviewed and electronically signed by: BONI YATES MD on Sep 22 2017 7:26AM EST [id number] CBC Collected: 09/22/2017 Status: F Source: [facility] 12:30 AM [facility] REPOSITORY TYPE CODE TESTS RESULT OUT OF REFERENCE UNITS RANGE LAB WBC 3.70-11.00 k/uL WBC High 13.11 LAB RBC 4.20-6.00 m/uL Low RBC 4.05 LAB HGB 13.0-17.0 g/dL Low Hemoglobin 12.0 LAB HCT 39.0-51.0 % Low Hematocrit 36.0 LAB MCV 80.0-100.0 fL MCV 88.9 LAB MCH 26.0-34.0 pG MCH 29.6 LAB MCHC 30.5-36.0 g/dL MCHC 33.3 LAB RDWCV 11.5-15.0 % RDW-CV 13.6 LAB PLTCT 150-400 k/uL Low Platelet Count 129 Result Comment: Result checked and verified No clot detected. LAB MPV 9.0-12.7 fL MPV 10.7 LAB ABSNUC <0.01 k/uL Absolute nRBC <0.01 Performed By: #### CBC, CMP, SARAY #### [facility] [address] [place], [place] [address] COMP METABOLIC PANEL Collected: 09/22/2017 Status: F Source: [facility] 12:30 AM [facility] REPOSITORY TYPE CODE TESTS RESULT OUT OF REFERENCE UNITS RANGE LAB TP 6.3-8.0 g/dL Low Protein, Total 5.6 LAB ALB 3.9-4.9 g/dL Low Albumin 2.9 LAB CA 8.5-10.2 mg/dL Low Calcium, Total 8.1 LAB TBIL 0.2-1.3 mg/dL Bilirubin, Total 0.8 LAB ALKP 36-108 U/L Low Alkaline Phosphatase 32 LAB AST 14-40 U/L AST High 61 LAB GLU 74-99 mg/dL Glucose High 186 Result Comment: The [place] [employer] (ADA) provides guidance for cutoff values for fasting glucose and random glucose. The ADA defines fasting as no caloric intake for at least 8 hours. Fas ting plasma glucose results between 100 to 125 mg/dL indicate increased risk for diabetes (prediabetes). Fasting plasma glucose results greater than or equal to 126 mg/dL meet the criteria for diagnosis of diabetes. In the absence of unequivocal hyperglycemia, results should be confirmed by repeat testing. In a patient with classic symptoms of hyperglycemia or hyperglycemic crisis, random plasma glucose results greater than or equal to 200 mg/dL meet the criteria for diagnosis of diabetes. Reference: Standards of Medical Care in Diabetes 2016, [place] [employer]. Diabetes Care. 2016.39(Suppl 1). LAB BUN 9-24 mg/dL BUN 12 LAB CRET 0.73-1.22 mg/dL Creatinine High 1.46 LAB NA 136-144 mmol/L Low Sodium 133 LAB K 3.7-5.1 mmol/L Potassium 4.5 LAB CL 97-105 mmol/L Chloride 99 LAB CO2 22-30 mmol/L CO2 24 LAB AGAP 9-18 mmol/L Anion Gap 10 LAB ALT 10-54 U/L ALT 44 LAB GFRAA eGFR- Amer. 59 LAB GFRNAA . eGFR-All Other Races 49 Result Comment: eGFR (Estimated GFR) Units of measure: mL/min/1.73 meters squared eGFR is derived from the reexpressed MDRD Study equation using the following parameters: serum creatinine, age, gender and race. The creatinine assay has been calibrated to be traceable to IDAL. An eGFR <60 mL/min/1.73m2 for >3 months is consistent with chronic kidney disease. Refer to KDOQI guidelines for clinical interpretation. In patients with unstable renal function, e.g. those with acute kidney injury, the eGFR may not accurately reflect actual GFR. Performed By: #### CBC, CMP, SARAY #### [facility] [address] [place], [place] [address] TROPONIN T Collected: 09/22/2017 Status: F Source: [facility] 12:30 AM [facility] REPOSITORY TYPE CODE TESTS RESULT OUT OF REFERENCE UNITS RANGE LAB TROPT 0.000-0.029 ng/mL High Troponin T 1.150 Result Comment: Called to and read back by: Luis Kirby CV ICU 09/22/17 Martir Smith Performed By: #### CBC, CMP, SARAY #### [facility] [address] [place], [place] [address] GASA + ALL Collected: 09/22/2017 Status: F Source: [facility] 12:14 AM [facility] RADIANCE USE ONLY REPOSITORY TYPE CODE TESTS RESULT OUT OF REFERENCE UNITS RANGE LAB PH 7.35-7.45 pH 7.41 LAB PCO2 34-46 mm Hg pCO2 37 LAB PO2 85-95 mm Hg pO2 91 LAB BE mmol/L Base Excess NEG 1 LAB HCO3 22-26 mmol/L Bicarbonate 23 LAB CO2CT 22.0-28.0 mmol/L CO2 Content 24 LAB O2HB 95-98 % Oxyhemoglobin, Art. 95 LAB COHB 0-5.0 % Carboxyhemoglobin,A 2.1 rt LAB MHGB 0.4-1.5 % Methemoglobin 0.6 LAB TEMP C Temperature, Body 37.0 LAB PHTC 7.35-7.45 pH, Temp Corrected 7.41 LAB PCO2T 34-46 mm Hg pCO2, Temp Correct 37 LAB PO2T mm Hg pO2, Temp Corrected 91 LAB NAB 135-146 mmol/L Sodium,Whole Bld Low 131 LAB KWB 3.5-5.0 mmol/L Potassium, Whole Bld 4.0 LAB HGBB 13.0-17.0 g/dL Low Hemoglobin,Total,AC 12.2 L LAB HCTB 39.0-51.0 % Hematocrit, ACL Low 38 LAB IC 1.08-1.30 mmol/L Calcium, Ion, WB 1.13 LAB GLB 60-105 mg/dL Glucose,Whole Bld High 190 LAB LACT 0.5-2.2 mmol/L Lactate 1.3 Performed By: #### ALLBG #### [facility] [address], [place] [address] GASA + ALL Collected: 09/21/2017 Status: F Source: [facility] 10:42 PM [facility] RADIANCE USE ONLY REPOSITORY TYPE CODE TESTS RESULT OUT OF REFERENCE UNITS RANGE LAB PH 7.35-7.45 pH 7.40 LAB PCO2 34-46 mm Hg pCO2 39 LAB PO2 85-95 mm Hg pO2 Low 82 LAB BE mmol/L Base Excess NEG 1 LAB HCO3 22-26 mmol/L Bicarbonate 24 LAB CO2CT 22.0-28.0 mmol/L CO2 Content 25 LAB O2HB 95-98 % Oxyhemoglobin, Low Art. 94 LAB COHB 0-5.0 % Carboxyhemoglobin,A 1.5 rt LAB MHGB 0.4-1.5 % Methemoglobin 0.6 LAB TEMP C Temperature, Body 37.0 LAB PHTC 7.35-7.45 pH, Temp Corrected 7.40 LAB PCO2T 34-46 mm Hg pCO2, Temp Correct 39 LAB PO2T mm Hg pO2, Temp Corrected 82 LAB NAB 135-146 mmol/L Sodium,Whole Bld Low 128 LAB KWB 3.5-5.0 mmol/L Potassium, Whole Bld 4.8 LAB HGBB 13.0-17.0 g/dL Low Hemoglobin,Total,AC 12.4 L LAB HCTB 39.0-51.0 % Hematocrit, ACL Low 38 LAB IC 1.08-1.30 mmol/L Calcium, Ion, WB 1.15 LAB GLB 60-105 mg/dL Glucose,Whole Bld High 215 LAB LACT 0.5-2.2 mmol/L Lactate 1.3 Performed By: #### ALLBG #### [facility] [address] [place], [place] [address] GASA + ALL Collected: 09/21/2017 Status: F Source: [facility] 8:52 PM [facility] RADIANCE USE ONLY REPOSITORY TYPE CODE TESTS RESULT OUT OF REFERENCE UNITS RANGE LAB PH 7.35-7.45 pH 7.39 LAB PCO2 34-46 mm Hg pCO2 39 LAB PO2 85-95 mm Hg pO2 High 110 LAB BE mmol/L Base Excess NEG 1 LAB HCO3 22-26 mmol/L Bicarbonate 23 LAB CO2CT 22.0-28.0 mmol/L CO2 Content 25 LAB O2HB 95-98 % Oxyhemoglobin, Art. 96 LAB COHB 0-5.0 % Carboxyhemoglobin,A 1.7 rt LAB MHGB 0.4-1.5 % Methemoglobin 0.6 LAB TEMP C Temperature, Body 37.0 LAB PHTC 7.35-7.45 pH, Temp Corrected 7.39 LAB PCO2T 34-46 mm Hg pCO2, Temp Correct 39 LAB PO2T mm Hg pO2, Temp Corrected 110 LAB NAB 135-146 mmol/L Sodium,Whole Bld Low 130 LAB KWB 3.5-5.0 mmol/L Potassium, Whole Bld 5.0 LAB HGBB 13.0-17.0 g/dL Low Hemoglobin,Total,AC 12.9 L LAB HCTB 39.0-51.0 % Hematocrit, ACL 40 LAB IC 1.08-1.30 mmol/L Calcium, Ion, WB 1.19 LAB GLB 60-105 mg/dL Glucose,Whole Bld High 179 LAB LACT 0.5-2.2 mmol/L Lactate 1.4 Performed By: #### ALLBG #### [facility] [address] [place], [place] [address] GASA + ALL Collected: 09/21/2017 Status: F Source: [facility] 6:51 PM [facility] RADIANCE USE ONLY REPOSITORY TYPE CODE TESTS RESULT OUT OF REFERENCE UNITS RANGE LAB PH 7.35-7.45 pH 7.36 LAB PCO2 34-46 mm Hg pCO2 43 LAB PO2 85-95 mm Hg pO2 114 High LAB BE mmol/L Base Excess NEG 2 LAB HCO3 22-26 mmol/L Bicarbonate 23 LAB CO2CT 22.0-28.0 mmol/L CO2 Content 25 LAB O2HB 95-98 % 95 Oxyhemoglobin, Art. LAB COHB 0-5.0 % 1.4 Carboxyhemoglobin ,Art LAB MHGB 0.4-1.5 % 1.2 Methemoglobin LAB TEMP C 37.0 Temperature, Body LAB PHTC 7.35-7.45 pH, Temp 7.36 Corrected LAB PCO2T 34-46 mm Hg pCO2, Temp 43 Correct LAB PO2T mm Hg pO2, Temp 114 Corrected LAB NAB 135-146 mmol/L 131 Low Sodium,Whole Bld LAB KWB 3.5-5.0 mmol/L Potassium, 4.1 Whole Bld LAB HGBB 13.0-17.0 g/dL 12.9 Low Hemoglobin,Total, ACL LAB HCTB 39.0-51.0 % Hematocrit, 40 ACL LAB IC 1.08-1.30 mmol/L Calcium, 1.13 Ion, WB LAB GLB 60-105 mg/dL 181 High Glucose,Whole Bld LAB LACT 0.5-2.2 mmol/L Lactate 1.8 LAB ABGCOM Blood Gas O2 Comm, Art Administration Result Comment: 40% Performed By: #### ALLBG #### [facility] [address] [place], [place] [address] STAPH AUREUS PCR Collected: 09/21/2017 Status: F Source: [facility] 6:28 PM [facility] REPOSITORY TYPE CODE TESTS RESULT OUT OF REFERENCE UNITS RANGE LAB SAS Nasal S aureus Spec Source LAB MRSRES Negative for MRSA MRSA by PCR. PCR LAB SARES Negative for Staph Staphylococcus aureus PCR aureus by PCR. Performed By: #### SAPCR #### [facility] [address] [place], [place] [address] XR CHEST 1V FRONTAL Observed: 09/21/2017 Status: F Source: [facility] 5:32 PM [facility] REPOSITORY * * *Final Report* * * DATE OF EXAM: Sep 21 2017 5:32PM [id number] - XR CHEST 1V FRONTAL PORT / PROCEDURE REASON: Evaluate tube, line or lead position * * * * Physician Interpretation * * * * EXAMINATION: CHEST RADIOGRAPH (PORTABLE SINGLE VIEW AP) Exam Date/Time: 09/21/2017 5:32 PM Clinical History: Evaluate tube, line or lead position MQ: XCPMC_5 Comparison: 09/13/2017 RESULT: See impression. IMPRESSION: Lines, tubes, and devices: The patient has had median sternotomy in the interim between the 2 exams. Support devices are unremarkable. Lungs and pleura: Increase of basilar atelectatic changes. Prominence of the lung markings bilaterally could be due to crowded vessels given the low lung volume. Underlying mild interstitial edema or inflammation cannot be entirely excluded. Tiny pleural effusion versus pleural thickening is a present on the left side. Right hemidiaphragm elevation has increased. Cardiomediastinal silhouette: Stable cardiomediastinal silhouette. Other: . 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 Transcribe Date/Time: Sep 21 2017 5:48P Dictated by : KAMARI FRENCH MD This examination was interpreted and the report reviewed and electronically signed by: KAMARI FRENCH MD on Sep 21 2017 5:51PM EST [id number] Observed: 09/21/2017 Status: COMPLETED Source: [facility] 5:27 PM [facility] REPOSITORY O ID: [id number] Author: Sabra Vo (Storage Solutions Architect) Guillaume Service: Critical Care Author Type: Nurse Practitioner Type: Progress Notes Filed: 09/22/2017 6:36 AM Note Text: [facility] Admission Note Name: Noman Stone Principal Diagnosis: CAD (coronary artery disease) Indication for Surgery: CAD LVEF: 60%, concentric LVH RVF: Mild Important/Relevant PMH/PSH: CAD (prior PCI to RCA, rPDA and LAD), PAD with prior LLE stent, HNT, HLD, DMII, ARNOLDO Preoperative Hospital Course (narrative): 61M with CAD (prior PCI to RCA, rPDA and LAD), PAD with prior LLE stent, HNT, HLD, DMII, ARNOLDO who presents with severe 3v CAD here for consideration of CABG. He describes slowly progressive angina over the last several months. Despite presenting with AF with slow ventricular response, he spontaneously cardioverted to sinus rhythm with normal HR (70s). Reasonable to consider CABG with MAZE and possible SHAD exclusion. Procedure/Surgeries: 09/21/2017 CABG x5 (MANCERA-LAD, SVG-D, SVG-OM, SVG-PDA-PLV), LAAL, PVI Airway Difficulty: Grade I - No special instrumentation OR Course: 2 pump runs, htn Pacing wires: Yes: Atrial and Ventricular: When discontinuing pacing wires: Pull all pacing wires Postoperative Course/General Impression: (narrative or log of major events with date of onset): Arrived to ICU intubated and sedated. Requiring ntg drip for htn. Issues to communicate at signout: WTE MAP goal 65-75 Discuss need to resume plavix with CTS Discharge Planning: Anticipated Discharge Date: Unknown Unknown Care Management Discharge Needs: Needs Prior to Discharge: To Be Determined Additional Hospital Problems Problem A-Fib (Hcc) 09/21/2017 s/p PVI, LAAE A/P; arrived to ICU in sinus rhythm Cad (Coronary Artery Disease) History: S/p ELZA to rRCA 2.5x28mm Promus Premier EES on 02/11/15 c/b dissection during cath not amenable to corrective intervention. 09/11/2016 Developed palpitations, CE negative, Abnormal stress test. LHC at [facility] showed triple vessel disease. Transferred to [facility] for CABG eval. Last dose of Plavix 09/11/2016 09/21/2017 CABG x5 (MANCERA-LAD, SVG-D, SVG-OM, SVG-PDA-PLV), LAAL, PVI CAD Core Measures: Aspirin: Yes - discuss resumption of plavix with CTS Beta blockers: No - due to not indicated at this time Statins: Resumed home dose of lipitor On Mechanically Assisted Ventilation (Hcc) Grade 1 airway A/P: WTE Unstable Angina (Hcc) See CAD Peripheral arterial disease History : POA S/p multiple interventions Assessment: Pt reports he can not use IPCs due to poor circulartion peripheral pulses intact cont medical tx ABIs: Rt normal at rest. Lt mild disease at rest Consulted vascular surgery for claudication and severe PAD Stable PVD with near-joshua/normall ABIs (L NIKKI 0.89 and R NIKKI 1.04). ? Plan: -Still ok to proceed with planned CABG and LE vein harvest -Do not need to repeat formal PVRs at this time -Vascular Surgery will sign off, but please call with additional questions Pt states that he can't wear the support hoses and told not to wear the IPC's He is worried about this after surgery. 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 Range 04/01/2017 00:00 Hemoglobin A1C Latest Ref Range: 4.8 - 5.9 % 7.9 (A) recheck HGA1C 8.8 Plan:., RHI drip Hyperlipidemia History: POA: Home med: atorvastatin. Assessment: Component Latest Ref Rng AND Units 09/14/2017 Cholesterol, Total <200 mg/dL 123 Triglyceride <150 mg/dL 167 (H) HDL Cholesterol >39 mg/dL 34 (L) LDL Cholesterol <100 mg/dL 56 Non HDL Cholesterol <130 mg/dL 89 Fasting Time hrs Unknown VLDL Cholesterol <30 mg/dL 33 (H) TC:HDL Ratio <5.10 3.62 LDL:HDL Ratio <2.54 1.65 Plan: Ordered home dose of Lipitor 80mg for after extubation. Stage 3 Chronic Kidney Disease History: POA, creat on admission was 1.35 09/16/17 increase in creat to 1.49 Dc losartan 09-14 Kidney u/s 09-17: no hydonephrosis 09/18 creatinine 1.52 09/19 creatinine 1.26 09/20 creatinine 1.38 Plan: Monitor Creat. post op and keep map >65, monitor uop Leukocytosis History: not present on admission Assessment: 09/19 WBC 12 09/20/2017 WBC 11, no fever Reviewed most recent CXR, UA neither of them suggestive of infection. No complaints of cough, fever, chills, congestion, IV site unremarkable Plan: monitor.. Obesity, Class II, Bmi 35-39.9 History: POA Assessment: Body mass index is 36.36 kg/m?. Plan: discussed wt loss Discharge Planning Issues 61yo man from [facility]. Monitor for dc needs as he recovers. Infusions: Insulin Nitroglycerin Propofol CVICU Admission ECG: Reviewed CVICU Admission CXR: Reviewed Neuro: Sedation . Cardiovascular: Rhythm: regular rate and rhythm MAP: 75 mmHg Pacemaker : None ICD: No Peripheral pulses present: All present Pulmonary: Clear to auscultation and Breath sounds equal Ventilator: Intubated Potential prolonged intubation : No Abdominal: Soft and Bowel sounds no Continued need for urinary catheter: Yes - clinical indication: Patient post major surgery requiring fluid balance and input and output measurement. DAY OF SURGERY PLAN: Standard Protocol, intubated patient: Cardiovascular monitoring, stabilization of blood pressure and cardiac function, wean to extubate when ready per protocol. Pain control, glycemic control, DVT prophylaxis, antibiotic prophylaxis. SIGNATURE: Sabra Galaviz APRN.CNP DATE of SERVICE: 09/21/2017 TIME of SERVICE: 5:27 PM ANES POST Observed: 09/21/2017 Status: COMPLETED Source: [facility] 5:18 PM [facility] REPOSITORY [facility] ID: [id number] Author: Kevin Galvan Service: Anesthesiology Author Type: Anesthesiologist Type: Anesthesia PostOp Filed: 09/21/2017 5:18 PM Note Text: POST ANESTHESIA EVALUATION NOTE SERVICE DATE: 09/21/2017 SERVICE TIME: 517 : 1955 Vitals: 09/20/17 1034 09/20/17 1513 09/20/17231509/21/17227 Temp: 36.6 ?C (97.8 ?F) 36.7 ?C (98.1 ?F) 36.8 ?C (98.2 ?F) 36.7 ?C (98 ?F) 09/20/17 1034 09/20/17 1513 09/20/17231509/21/17 022 BP: 127/78 113/56 108/64 129/72 09/20/17 1513 09/20/17 2316 09/21/17 0228 09/21/17 1703 Pulse: 74 64 62 67 09/20/17 1513 09/20/17 2316 09/21/17 0228 09/21/17 1703 Resp: 16 18 18 16 09/20/17 1513 09/20/17 2316 09/21/17 0228 09/21/17 1703 SpO2: 93% 94% 94% 97% Validated Vital Signs: Yes POST ANES STATUS: PACU/ICU Patient Condition: Guarded Neurological Status: On intravenous sedation. Pulmonary Status: On invasive mechanical ventilation. Airway Control: Intubated on mechanical ventilation. Cardiovascular Status: Guarded Pain: Adequately controlled Postoperative Nausea/Vomiting: No significant post operative nausea or vomiting Postoperative Hydration Status: Adequate. Anesthetic Complications: None Recommendation: Continue current plan of care Other Remarks: SIGNATURE: Kevin Galvan MD PATIENT NAME: Noman Stone DATE: September 21, 2017 TIME: 5:18 PM PAGER/CONTACT #: [phone] GASA + ALL Collected: 09/21/2017 Status: F Source: MARIBEL FOR 5:14 PM [facility] USE ONLY REPOSITORY TYPE CODE TESTS RESULT OUT OF REFERENCE UNITS RANGE LAB PH 7.35-7.45 pH 7.35 LAB PCO2 34-46 mm Hg pCO2 46 LAB PO2 85-95 mm Hg pO2 Low 81 LAB BE mmol/L Base Excess NEG 1 LAB HCO3 22-26 mmol/L Bicarbonate 25 LAB CO2CT 22.0-28.0 mmol/L CO2 Content 26 LAB O2HB 95-98 % Oxyhemoglobin, Low Art. 93 LAB COHB 0-5.0 % Carboxyhemoglobin,A 1.8 rt LAB MHGB 0.4-1.5 % Methemoglobin 1.1 LAB TEMP C Temperature, Body 37.0 LAB PHTC 7.35-7.45 pH, Temp Corrected 7.35 LAB PCO2T 34-46 mm Hg pCO2, Temp Correct 46 LAB PO2T mm Hg pO2, Temp Corrected 81 LAB NAB 135-146 mmol/L Sodium,Whole Bld Low 133 LAB KWB 3.5-5.0 mmol/L Potassium, Whole Bld 4.1 LAB HGBB 13.0-17.0 g/dL Low Hemoglobin,Total,AC 12.6 L LAB HCTB 39.0-51.0 % Hematocrit, ACL 39 LAB IC 1.08-1.30 mmol/L Calcium, Ion, WB 1.18 LAB GLB 60-105 mg/dL Glucose,Whole Bld High 209 LAB LACT 0.5-2.2 mmol/L Lactate 2.0 Performed By: #### ALLBG #### [facility] [address] [place], [place] [address] ECG COMPLETE W Observed: 09/21/2017 Status: F Source: MARIBEL INTERPRETATION 5:10 PM [facility] REPOSITORY NAME : NOMAN STONE PID : [id number] : 1955 Gender : Male Race : ORD : [id number] Procedure Date : Sep 21 2017 17:10:40 Edit Date : Sep 25 2017 18:37:16 Diagnosis:NORMAL SINUS RHYTHM NORMAL ECG Confirmed by JOVAN DORSEY M.D. ([id number]) on 09/25/2017 6:37:14 PM Ventricular Rate : 65 BPM Atrial Rate : 65 BPM P-R Interval : 172 ms QRS Duration : 84 ms Q-T Interval : 418 ms QTC Calculation(Bezet) : 434 ms P [place] : 42 degrees R [place] : 45 degrees T [place] : 42 degrees Test Reason : Unstable Angina Location : 367 : [id number] Overread By : JOVAN DORSEY M.D. Edited By : JOVAN DORSEY M.D. Referred By : , Acquired by : [id number], GASA + ALL Collected: 09/21/2017 Status: F Source: MARIBEL FOR 4:14 PM [facility] RADIANCE USE ONLY REPOSITORY TYPE CODE TESTS RESULT OUT OF REFERENCE UNITS RANGE LAB PH 7.35-7.45 pH 7.41 LAB PCO2 34-46 mm Hg pCO2 38 LAB PO2 85-95 mm Hg pO2 High 164 LAB BE mmol/L Base Excess 0 LAB HCO3 22-26 mmol/L Bicarbonate 24 LAB CO2CT 22.0-28.0 mmol/L CO2 Content 25 LAB O2HB 95-98 % Oxyhemoglobin, Art. 97 LAB COHB 0-5.0 % Carboxyhemoglobin,A 1.5 rt LAB MHGB 0.4-1.5 % Methemoglobin 1.2 LAB TEMP C Temperature, Body 37.0 LAB PHTC 7.35-7.45 pH, Temp Corrected 7.41 LAB PCO2T 34-46 mm Hg pCO2, Temp Correct 38 LAB PO2T mm Hg pO2, Temp Corrected 164 LAB NAB 135-146 mmol/L Sodium,Whole Bld Low 132 LAB KWB 3.5-5.0 mmol/L Potassium, Whole Bld 4.0 LAB HGBB 13.0-17.0 g/dL Low Hemoglobin,Total,AC 12.1 L LAB HCTB 39.0-51.0 % Hematocrit, ACL Low 37 LAB IC 1.08-1.30 mmol/L Calcium, Ion, WB 1.16 LAB GLB 60-105 mg/dL Glucose,Whole Bld High 235 LAB LACT 0.5-2.2 mmol/L Lactate 2.0 Performed By: #### ALLBG #### [facility] [address] [place], [place] [address] BRIEF OP NOT Observed: 09/21/2017 Status: COMPLETED Source: MARIBEL 4:13 PM [facility] REPOSITORY HNO ID: [id number] Author: Harman Ruiz Service: Cardiac Surgery Author Type: Resident Type: Brief Op Note Filed: 09/21/2017 4:16 PM Note Text: CARDIOTHORACIC BRIEF OP NOTE LOG ID: [id number] SURGERY/PROCEDURE DATE: 09/21/2017 INCISION/PROCEDURE START TIME: 8:21 AM INCISION CLOSE/PROCEDURE END TIME: SURGEON(S) AND WHIPPED TOPPING MIXER(S): Surgeon(s) and Role: * Isabel Gray - Primary * Harman (Sascha) Joseph - Resident - Assisting Registered Nurse Homemaker Companion: Khushbu (Rn) Bryanna, RN; Shyla (Crtt) ANURADHA Nick; Sherry (Ct) [place], [place]; Shant (Rn) GENIA EspañaFIRE TECHNICIAN AND ANESTHESIA: Procedure(s) and Anesthesia Type: * BYPASS GRAFT ARTERY CORONARY ON-PUMP USING VENOUS GRAFT(S) AND ARTERIAL GRAFT(S) SINGLE VEIN GRAFT - General * FULL MAZE W/O CARDIOPULMONARY BYPASS - General Great Saphenous Vein, Left , Percutaneous endoscopic Internal Thoracic Artery, Left , Open CABG x5 (MANCERA-LAD, SVG-D, SVG-OM, SVG-PDA-PLV), LAAL, PVI ANESTHESIA: General BRIEF FINDINGS: Poor OM, diag target Good biventricular function post pump 32F straight right pleura 32F straight mediastinal Mediastinal awais 2A, 2 V wires (PULL) PREOPERATIVE DIAGNOSIS: atrial fibrillation and coronary artery disease POSTOPERATIVE DIAGNOSIS: atrial fibrillation and coronary artery disease ESTIMATED BLOOD LOSS: 250 ml SPECIMENS: Specimen ID Type Site Comments Sent To 1path-left atrial appendage Tissue Heart prepped by GONZALEZ/KINDRA; taken by:KINDRA Pathology Routine COMPLICATIONS: None SIGNATURE: Harman Ruiz MD PATIENT NAME: Noman Stone DATE: September 21, 2017 TIME: 4:13 PM PAGER/CONTACT #: [phone] GASA + ALL Collected: 09/21/2017 Status: F Source: MARIBEL FOR 3:18 PM [facility] RADIANCE USE ONLY REPOSITORY TYPE CODE TESTS RESULT OUT OF REFERENCE UNITS RANGE LAB PH 7.35-7.45 pH 7.36 LAB PCO2 34-46 mm Hg pCO2 43 LAB PO2 85-95 mm Hg pO2 High 237 LAB BE mmol/L Base Excess NEG 1 LAB HCO3 22-26 mmol/L Bicarbonate 24 LAB CO2CT 22.0-28.0 mmol/L CO2 Content 25 LAB O2HB 95-98 % Oxyhemoglobin, Art. 97 LAB COHB 0-5.0 % Carboxyhemoglobin,A 2.0 rt LAB MHGB 0.4-1.5 % Methemoglobin 1.0 LAB TEMP C Temperature, Body 37.0 LAB PHTC 7.35-7.45 pH, Temp Corrected 7.36 LAB PCO2T 34-46 mm Hg pCO2, Temp Correct 43 LAB PO2T mm Hg pO2, Temp Corrected 237 LAB NAB 135-146 mmol/L Sodium,Whole Bld Low 130 LAB KWB 3.5-5.0 mmol/L Potassium, Whole Bld 4.2 LAB HGBB 13.0-17.0 g/dL Low Hemoglobin,Total,AC 10.4 L LAB HCTB 39.0-51.0 % Hematocrit, ACL Low 32 LAB IC 1.08-1.30 mmol/L Calcium, Ion, WB 1.15 LAB GLB 60-105 mg/dL Glucose,Whole Bld High 269 LAB LACT 0.5-2.2 mmol/L Lactate High 2.9 Performed By: #### ALLBG #### [facility] [address] [place], [place] [address] GASA + ALL Collected: 09/21/2017 Status: F Source: MARIBEL FOR 2:06 PM [facility] RADIANCE USE ONLY REPOSITORY TYPE CODE TESTS RESULT OUT OF REFERENCE UNITS RANGE LAB PH 7.35-7.45 pH 7.37 LAB PCO2 34-46 mm Hg pCO2 43 LAB PO2 85-95 mm Hg pO2 High 254 LAB BE mmol/L Base Excess NEG 1 LAB HCO3 22-26 mmol/L Bicarbonate 24 LAB CO2CT 22.0-28.0 mmol/L CO2 Content 25 LAB O2HB 95-98 % Oxyhemoglobin, Art. 98 LAB COHB 0-5.0 % Carboxyhemoglobin, 1.7 Art LAB MHGB 0.4-1.5 % Methemoglobin 0.7 LAB TEMP C Temperature, Body 37.0 LAB PHTC 7.35-7.45 pH, Temp Corrected 7.37 LAB PCO2T 34-46 mm Hg pCO2, Temp Correct 43 LAB PO2T mm Hg pO2, Temp Corrected 254 LAB NAB 135-146 mmol/L Sodium,Whole Low Bld 127 LAB KWB 3.5-5.0 mmol/L Potassium, High Whole Bld 5.1 LAB HGBB 13.0-17.0 g/dL Low Hemoglobin,Total,A 9.7 CL LAB HCTB 39.0-51.0 % Hematocrit, Low ACL 30 LAB IC 1.08-1.30 mmol/L Calcium, Ion, Low WB 1.06 LAB GLB 60-105 mg/dL Glucose,Whole High Bld 347 LAB LACT 0.5-2.2 mmol/L Lactate High 2.5 LAB ACBDTE Notify Date, Art [id number] LAB ACBTME Notify Time, Art Performed By: #### ALLBG #### [facility] [address] [place], [place] [address] GASA + ALL Collected: 09/21/2017 Status: F Source: MARIBEL FOR 1:04 PM [facility] RADIANCE USE ONLY REPOSITORY TYPE CODE TESTS RESULT OUT OF REFERENCE UNITS RANGE LAB PH 7.35-7.45 pH 7.36 LAB PCO2 34-46 mm Hg pCO2 45 LAB PO2 85-95 mm Hg pO2 High 271 LAB BE mmol/L Base Excess 0 LAB HCO3 22-26 mmol/L Bicarbonate 25 LAB CO2CT 22.0-28.0 mmol/L CO2 Content 26 LAB O2HB 95-98 % Oxyhemoglobin, Art. 97 LAB COHB 0-5.0 % Carboxyhemoglobin,A 1.6 rt LAB MHGB 0.4-1.5 % Methemoglobin 1.2 LAB TEMP C Temperature, Body 37.0 LAB PHTC 7.35-7.45 pH, Temp Corrected 7.36 LAB PCO2T 34-46 mm Hg pCO2, Temp Correct 45 LAB PO2T mm Hg pO2, Temp Corrected 271 LAB NAB 135-146 mmol/L Sodium,Whole Bld Low 129 LAB KWB 3.5-5.0 mmol/L Potassium, Whole Bld 4.5 LAB HGBB 13.0-17.0 g/dL Low Hemoglobin,Total,AC 10.3 L LAB HCTB 39.0-51.0 % Hematocrit, ACL Low 32 LAB IC 1.08-1.30 mmol/L Calcium, Ion, WB 1.11 LAB GLB 60-105 mg/dL Glucose,Whole Bld High 289 LAB LACT 0.5-2.2 mmol/L Lactate 2.2 Performed By: #### ALLBG #### [facility] [address] [place], [place] [address] GASA + ALL Collected: 09/21/2017 Status: F Source: MARIBEL FOR 12:27 PM [facility] RADIANCE USE ONLY REPOSITORY TYPE CODE TESTS RESULT OUT OF REFERENCE UNITS RANGE LAB PH 7.35-7.45 pH 7.38 LAB PCO2 34-46 mm Hg pCO2 43 LAB PO2 85-95 mm Hg pO2 High 251 LAB BE mmol/L Base Excess 0 LAB HCO3 22-26 mmol/L Bicarbonate 25 LAB CO2CT 22.0-28.0 mmol/L CO2 Content 26 LAB O2HB 95-98 % Oxyhemoglobin, Art. 98 LAB COHB 0-5.0 % Carboxyhemoglobin, 1.3 Art LAB MHGB 0.4-1.5 % Methemoglobin 0.7 LAB TEMP C Temperature, Body 37.0 LAB PHTC 7.35-7.45 pH, Temp Corrected 7.38 LAB PCO2T 34-46 mm Hg pCO2, Temp Correct 43 LAB PO2T mm Hg pO2, Temp Corrected 251 LAB NAB 135-146 mmol/L Sodium,Whole Low Bld 130 LAB KWB 3.5-5.0 mmol/L Potassium, Whole Bld 4.3 LAB HGBB 13.0-17.0 g/dL Low Hemoglobin,Total,A 11.1 CL LAB HCTB 39.0-51.0 % Hematocrit, Low ACL 34 LAB IC 1.08-1.30 mmol/L Calcium, Ion, WB 1.09 LAB GLB 60-105 mg/dL Glucose,Whole High Bld 267 LAB LACT 0.5-2.2 mmol/L Lactate 2.2 LAB ACBDTE Notify Date, Art [id number] LAB ACBTME Notify Time, Art Performed By: #### ALLBG #### [facility] [address] [place] [id number] GASA + ALL Collected: 09/21/2017 Status: F Source: MARIBEL FOR 11:33 AM [facility] USE ONLY REPOSITORY TYPE CODE TESTS RESULT OUT OF REFERENCE UNITS RANGE LAB PH 7.35-7.45 pH 7.40 LAB PCO2 34-46 mm Hg pCO2 38 LAB PO2 85-95 mm Hg pO2 High 335 LAB BE mmol/L Base Excess NEG 1 LAB HCO3 22-26 mmol/L Bicarbonate 23 LAB CO2CT 22.0-28.0 mmol/L CO2 Content 25 LAB O2HB 95-98 % Oxyhemoglobin, Art. 97 LAB COHB 0-5.0 % Carboxyhemoglobin,A 0.7 rt LAB MHGB 0.4-1.5 % Methemoglobin 1.2 LAB TEMP C Temperature, Body 37.0 LAB PHTC 7.35-7.45 pH, Temp Corrected 7.40 LAB PCO2T 34-46 mm Hg pCO2, Temp Correct 38 LAB PO2T mm Hg pO2, Temp Corrected 335 LAB NAB 135-146 mmol/L Sodium,Whole Bld Low 132 LAB KWB 3.5-5.0 mmol/L Potassium, Whole Bld 3.5 LAB HGBB 13.0-17.0 g/dL Low Hemoglobin,Total,AC 11.0 L LAB HCTB 39.0-51.0 % Hematocrit, ACL Low 34 LAB IC 1.08-1.30 mmol/L Calcium, Ion, WB 1.15 LAB GLB 60-105 mg/dL Glucose,Whole Bld High 189 LAB LACT 0.5-2.2 mmol/L Lactate High 2.3 Performed By: #### ALLBG #### [facility] [address] [place], [place] [address] GASV + ALL Collected: 09/21/2017 Status: F Source: MARIBEL 11:30 AM [facility] REPOSITORY TYPE CODE TESTS RESULT OUT OF REFERENCE UNITS RANGE LAB VPH 7.32-7.42 pH 7.38 LAB VPC2 42-55 mm Hg pCO2 43 LAB VPO2 35-45 mm Hg pO2 High 52 LAB VBE mmol/L Base Excess 0 LAB VHC3 24-28 mmol/L Bicarbonate 25 LAB VC2C 25-29 mmol/L CO2 Content 26 LAB O2HBCX 60-85 % Oxyhemoglobin, David. 84 LAB CO <2.0 % Carboxyhemoglobin,V 1.0 en LAB METHB 0.4-1.5 % Methemoglobin 1.2 LAB VTMP C Temperature, Body 37.0 LAB VPHTC 7.32-7.42 pH, Temp Corrected 7.38 LAB VPC2T mm Hg pCO2, Temp Correct 43 LAB VPO2T mm Hg pO2, Temp Corrected 52 LAB NAB 135-146 mmol/L Sodium,Whole Bld Low 131 LAB KWB 3.5-5.0 mmol/L Potassium, Whole Bld 3.6 LAB HGBB 13.0-17.0 g/dL Low Hemoglobin,Total,AC 11.4 L LAB HCTB 39.0-51.0 % Hematocrit, ACL Low 35 LAB IC 1.08-1.30 mmol/L Calcium, Ion, WB 1.16 LAB GLB 60-105 mg/dL Glucose,Whole Bld High 187 LAB LACT 0.5-2.2 mmol/L Lactate High 2.4 Performed By: #### VALLBG #### [facility] [address] [place], [place] [address] GASA + ALL Collected: 09/21/2017 Status: F Source: MARIBEL FOR 11:02 AM [facility] RADIANCE USE ONLY REPOSITORY TYPE CODE TESTS RESULT OUT OF REFERENCE UNITS RANGE LAB PH 7.35-7.45 pH 7.44 LAB PCO2 34-46 mm Hg pCO2 37 LAB PO2 85-95 mm Hg pO2 High 134 LAB BE mmol/L Base Excess 1 LAB HCO3 22-26 mmol/L Bicarbonate 24 LAB CO2CT 22.0-28.0 mmol/L CO2 Content 26 LAB O2HB 95-98 % Oxyhemoglobin, Art. 97 LAB COHB 0-5.0 % Carboxyhemoglobin,A 1.5 rt LAB MHGB 0.4-1.5 % Methemoglobin 1.0 LAB TEMP C Temperature, Body 37.0 LAB PHTC 7.35-7.45 pH, Temp Corrected 7.44 LAB PCO2T 34-46 mm Hg pCO2, Temp Correct 37 LAB PO2T mm Hg pO2, Temp Corrected 134 LAB NAB 135-146 mmol/L Sodium,Whole Bld 135 LAB KWB 3.5-5.0 mmol/L Potassium, Whole Low Bld 3.4 LAB HGBB 13.0-17.0 g/dL Hemoglobin,Total,AC 13.1 L LAB HCTB 39.0-51.0 % Hematocrit, ACL 40 LAB IC 1.08-1.30 mmol/L Calcium, Ion, WB 1.22 LAB GLB 60-105 mg/dL Glucose,Whole Bld High 210 LAB LACT 0.5-2.2 mmol/L Lactate 1.6 Performed By: #### ALLBG #### [facility] [address] [place], [place] [address] GASA + ALL Collected: 09/21/2017 Status: F Source: MARIBEL FOR 9:40 AM [facility] REPOS[facility]ORY TYPE CODE TESTS RESULT OUT OF REFERENCE UNITS RANGE LAB PH 7.35-7.45 pH 7.39 LAB PCO2 34-46 mm Hg pCO2 41 LAB PO2 85-95 mm Hg pO2 High 174 LAB BE mmol/L Base Excess 0 LAB HCO3 22-26 mmol/L Bicarbonate 24 LAB CO2CT 22.0-28.0 mmol/L CO2 Content 25 LAB O2HB 95-98 % Oxyhemoglobin, Art. 97 LAB COHB 0-5.0 % Carboxyhemoglobin,A 1.5 rt LAB MHGB 0.4-1.5 % Methemoglobin 1.2 LAB TEMP C Temperature, Body 37.0 LAB PHTC 7.35-7.45 pH, Temp Corrected 7.39 LAB PCO2T 34-46 mm Hg pCO2, Temp Correct 41 LAB PO2T mm Hg pO2, Temp Corrected 174 LAB NAB 135-146 mmol/L Sodium,Whole Bld 136 LAB KWB 3.5-5.0 mmol/L Potassium, Whole Bld 3.7 LAB HGBB 13.0-17.0 g/dL Hemoglobin,Total,AC 13.4 L LAB HCTB 39.0-51.0 % Hematocrit, ACL 41 LAB IC 1.08-1.30 mmol/L Calcium, Ion, WB 1.25 LAB GLB 60-105 mg/dL Glucose,Whole Bld High 243 LAB LACT 0.5-2.2 mmol/L Lactate 1.4 Performed By: #### ALLBG #### [facility] [address], [place] [address] GASA + ALL Collected: 09/21/2017 Status: F Source: MARIBEL FOR 7:25 AM [facility] RADIANCE USE ONLY REPOSITORY TYPE CODE TESTS RESULT OUT OF REFERENCE UNITS RANGE LAB PH 7.35-7.45 pH 7.45 LAB PCO2 34-46 mm Hg pCO2 37 LAB PO2 85-95 mm Hg pO2 Low 65 LAB BE mmol/L Base Excess 2 LAB HCO3 22-26 mmol/L Bicarbonate 25 LAB CO2CT 22.0-28.0 mmol/L CO2 Content 27 LAB O2HB 95-98 % Oxyhemoglobin, Low Art. 91 LAB COHB 0-5.0 % Carboxyhemoglobin, 1.4 Art LAB MHGB 0.4-1.5 % Methemoglobin 0.7 LAB TEMP C Temperature, Body 37.0 LAB PHTC 7.35-7.45 pH, Temp Corrected 7.45 LAB PCO2T 34-46 mm Hg pCO2, Temp Correct 37 LAB PO2T mm Hg pO2, Temp Corrected 65 LAB NAB 135-146 mmol/L Sodium,Whole Bld 137 LAB KWB 3.5-5.0 mmol/L Potassium, Whole Bld 4.0 LAB HGBB 13.0-17.0 g/dL Hemoglobin,Total,A 14.7 CL LAB HCTB 39.0-51.0 % Hematocrit, ACL 45 LAB IC 1.08-1.30 mmol/L Calcium, Ion, WB 1.25 LAB GLB 60-105 mg/dL Glucose,Whole High Bld 177 LAB LACT 0.5-2.2 mmol/L Lactate 0.9 LAB ACBDTE Notify Date, Art [id number] LAB ACBTME Notify Time, Art Performed By: #### ALLBG #### [facility] [address] [place], [place] [address] SURGICAL PATHOLOGY Observed: 09/21/2017 Status: F Source: MARIBEL 12:00 AM [facility] REPOSITORY Specimen originated from [facility] Specimen #: [id number] Submitting Physician: ISABEL GRAY MD FINAL DIAGNOSIS Left atrial appendage, excision - Mild interstitial fibrosis. Mild epicarditis. See comment. ERR/glw 09/25/2017 COMMENT Microscopic examination shows cardiac muscle with well-formed pectinate muscles. The Movat stain shows multiple layers of elastic lamellae in the endocardium consistent with left atrial endocardium. Occasional mononuclear inflammatory cells are seen in the epicardium. There is no evidence of giant cells or granulomata. The Movat stain shows mild interstitial fibrosis throughout the myocardium. There is no evidence of thrombosis. Marco Blevins ([id number]) (Electronic Signature) SPECIMEN SUBMITTED A: LEFT ATRIAL APPENDAGE CLINICAL DATA S/P PCI-OM & RCA S/P RCA ANGIOPLASTY HTN, HL, CAD GROSS DESCRIPTION A. Received in formalin labeled as left atrial appendage is an atrial appendage with scalloped border consistent with a left atrial appendage measuring 3.4 x 2.6 x 0.6 cm. The epicardial surface is smooth with focal fibrous areas. The myocardium appears unremarkable. The endocardium is white without any identified thrombi. Distribution Accounting Clerk sections of the specimen are submitted in one cassette. The specimen is shown to Dr. Blevins. HOST HOSTESS/rw 09/24/2017 Gross examination performed at [facility], [facility] [place][note 2] [place] [address] Date of Report: 09/25/2017 Date of Procedure: 09/21/2017 Date of Receipt: 09/21/2017 Submitted by: ISABEL GRAY MD Location: [facility] Diagnostic interpretation performed at [facility], [address] [place], [place] [id number]. OPERATIVE NO Observed: 09/21/2017 Status: COMPLETED Source: MARIBEL 12:00 AM [facility] REPOSITORY O ID: [id number] Author: Isabel Gray Service: Cardiac Surgery Author Type: Physician Type: Operative Report Filed: 09/26/2017 3:29 PM Note Text: [place] [address] [place] OPERATIVE REPORT DEPARTMENT OF THORACIC AND CARDIOVASCULAR SURGERY NAME: NOMAN STONE [facility] #: [id number] DATE: 09/21/2017 AGE: 61 SURGEON 1: Isabel Gray M.D. SURGEON 2: WHIPPED TOPPING MIXER 1: Harman Ruiz M.D. WHIPPED TOPPING MIXER 2: ANURADHA Webb ANESTHESIA: General. THIRD WHIPPED TOPPING MIXER: ANURADHA Ríos. OPERATION: CABG x5, MANCERA-LAD, SVG-ramus, SVG-PDA-PLV, SVG- OM, PV isolation, left atrial appendage excision. PREOPERATIVE DIAGNOSES: Coronary artery disease, paroxysmal atrial fibrillation, peripheral vascular disease, and chronic kidney disease. POSTOPERATIVE DIAGNOSES: Coronary artery disease, paroxysmal atrial fibrillation, peripheral vascular disease, and chronic kidney disease. OPERATIVE INDICATIONS: The patient is a 61-year-old gentleman who presented with chest pain and shortness of breath. His cardiac catheterization showed severe coronary artery disease. In addition, he had a history of paroxysmal atrial fibrillation. The findings were explained to the patient and family. They understood the risks, benefits, and alternatives of surgery and they wished to proceed. OPERATIVE FINDINGS: OPERATIVE PROCEDURE: The patient was prepped and draped in the usual fashion. A median sternotomy was performed and the left internal mammary artery was harvested in a skeletonized fashion. Simultaneously, the right GSV was harvested in an endoscopic fashion. Systemic heparin was given and ascending aorta and SVC and IVC were cannulated. After adequate ACT was achieved, we went on cardiopulmonary bypass. The right PV isolation was done with AtriCure. A cross-clamp was applied and antegrade followed by retrograde Buckberg cardioplegia was given to achieve cardiac arrest. Afterwards, retrograde cardioplegia was given every 15 minutes to maintain cardiac arrest. Then, the left side PV isolation was done. The left atrial appendage was excised and was oversewn with 4-0 Prolene. The PLV was exposed. This was a 1.25 mm vessel and an SVG was placed with 7-0 Prolene. Then, a sequential bypass to the PDA was done, which was a 1.5 mm vessel and an SVG was placed with 7-0 Prolene. The proximal anastomosis was done with a 6- 0 Prolene. Then, the OM was exposed. This was a 1.25 mm vessel and an SVG was placed with 7-0 Prolene. The proximal anastomosis was done with a 6-0 Prolene. The ramus was exposed. The artery was opened just distal to the stent. This was heavily diseased with a very small lumen. An SVG was placed with a 7-0 Prolene. The proximal anastomosis was done with a 6-0 Prolene. Then, the LAD was exposed. This was a 1.5 mm vessel and an SVG was placed with 7-0 Prolene. The heart was de-aired and cross- clamp was removed. We had no difficulty coming off cardiopulmonary bypass. Transesophageal echocardiogram showed good LV and RV function and no significant valve issues. All the grafts showed good flow except for the graft to the ramus, which showed low flow. All the cannulas were removed and protamine was given. Ventricular pacing wires were placed. After adequate hemostasis was achieved, chest tubes were placed and chest was closed with wires in the usual fashion. The patient tolerated the procedure well and was transferred to the Cardiothoracic Intensive Care Unit in stable condition. Sponge counts, instrument counts, and needle counts were reported correct by the circulating nurse. PRACTITIONER TASK: Dr. Harman Ruiz harvested the internal mammary artery and closed the chest. I or one of my colleagues were immediately available during this time. The rest of the procedure was done by the primary surgeon. ESTIMATED BLOOD LOSS: 250 mL. DRAINS: Chest tubes, mediastinal and left pleural. SPECIMENS: left atrial appendage. COMPLICATIONS: None. Isabel Gray M.D. HOLDER:[id number] /[id number] cc: OPERATIVE NO Observed: 09/21/2017 Status: COMPLETED Source: MARIBEL 12:00 AM [facility] REPOSITORY [facility] ID: [id number] Author: Shinya Unai Service: Cardiac Surgery Author Type: Physician Type: Operative Report Filed: 09/29/2017 6:09 PM Note Text: [place] [address] [place] OPERATIVE REPORT DEPARTMENT OF THORACIC AND CARDIOVASCULAR SURGERY NAME: NOMAN STONE [facility] #: [id number] DATE: 09/21/2017 AGE: 61 SURGEON 1: Isabel Gray M.D. SURGEON 2: WHIPPED TOPPING MIXER 1: Harman Ruiz M.D. WHIPPED TOPPING MIXER 2: ANURADHA Webb ANESTHESIA: General. THIRD WHIPPED TOPPING MIXER: ANURADHA Ríos. OPERATION: CABG x5, MANCERA-LAD, SVG-ramus, SVG-PDA-PLV, SVG- OM, PV isolation, left atrial appendage excision. PREOPERATIVE DIAGNOSES: Coronary artery disease, paroxysmal atrial fibrillation, peripheral vascular disease, and chronic kidney disease. POSTOPERATIVE DIAGNOSES: Coronary artery disease, paroxysmal atrial fibrillation, peripheral vascular disease, and chronic kidney disease. OPERATIVE INDICATIONS: The patient is a 61-year-old gentleman who presented with chest pain and shortness of breath. His cardiac catheterization showed severe coronary artery disease. In addition, he had a history of paroxysmal atrial fibrillation. The findings were explained to the patient and family. They understood the risks, benefits, and alternatives of surgery and they wished to proceed. OPERATIVE FINDINGS: OPERATIVE PROCEDURE: The patient was prepped and draped in the usual fashion. A median sternotomy was performed and the left internal mammary artery was harvested in a skeletonized fashion. Simultaneously, the right GSV was harvested in an endoscopic fashion. Systemic heparin was given and ascending aorta and SVC and IVC were cannulated. After adequate ACT was achieved, we went on cardiopulmonary bypass. The right PV isolation was done with AtriCure. A cross-clamp was applied and antegrade followed by retrograde Buckberg cardioplegia was given to achieve cardiac arrest. Afterwards, retrograde cardioplegia was given every 15 minutes to maintain cardiac arrest. Then, the left side PV isolation was done. The left atrial appendage was excised and was oversewn with 4-0 Prolene. The PLV was exposed. This was a 1.25 mm vessel and an SVG was placed with 7-0 Prolene. Then, a sequential bypass to the PDA was done, which was a 1.5 mm vessel and an SVG was placed with 7- 0 Prolene. The proximal anastomosis was done with a 6-0 Prolene. Then, the OM was exposed. This was a 1.25 mm vessel and an SVG was placed with 7-0 Prolene. The proximal anastomosis was done with a 6-0 Prolene. The ramus was exposed. The artery was opened just distal to the stent. This was heavily diseased with a very small lumen. An SVG was placed with a 7-0 Prolene. The proximal anastomosis was done with a 6-0 Prolene. Then, the LAD was exposed. This was a 1.5 mm vessel and an SVG was placed with 7-0 Prolene. The heart was de-aired and cross-clamp was removed. We had no difficulty coming off cardiopulmonary bypass. Transesophageal echocardiogram showed good LV and RV function and no significant valve issues. All the grafts showed good flow except for the graft to the ramus which showed low flow. This was thought to be due to poor runoff. All the cannulas were removed and protamine was given. Ventricular pacing wires were placed. After adequate hemostasis was achieved, chest tubes were placed and chest was closed with wires in the usual fashion. The patient tolerated the procedure well and was transferred to the Cardiothoracic Intensive Care Unit in stable condition. Sponge counts, instrument counts, and needle counts were reported correct by the circulating nurse. PRACTITIONER TASK: Dr. Harman Ruiz harvested the internal mammary artery and closed the chest. I or one of my colleagues were immediately available during this time. The rest of the procedure was done by the primary surgeon. ESTIMATED BLOOD LOSS: 250 mL. DRAINS: Chest tubes, mediastinal and left pleural. SPECIMENS: Left atrial appendage. COMPLICATIONS: None. Incision/Procedure Start Time: 08:21. Incision Close/Procedure End Time: 16:38. Isabel Gray M.D. HOLDER:[id number] /[id number]:09/27/2017jh cc: CANDIDA PREOP Observed: 09/20/2017 Status: COMPLETED Source: [place] 3:05 PM [facility] REPOSITORY HNO ID: [id number] Author: Bryon Tan Service: Anesthesiology Author Type: Resident Type: Anesthesia PreOp Filed: 09/20/2017 6:36 PM Note Text: [facility] PREOP EVALUATION CARDIOTHORACIC ANESTHESIA CARDIAC SURGERY SERVICE DATE: 09/20/2017 SERVICE TIME: 3:05 PM Proposed Surgical Procedure: CABG Re-do: No ASA Class: 4 Surgeon: Marina Surgery Date: 09/21/17 Last Wt 09/20/17 : 103.9 kg (229 lb) Last Ht 09/13/17 : 172.7 cm (5' 8) Estimated body mass index is 34.82 kg/m? as calculated from the following: Height as of this encounter: 172.7 cm (5' 8). Weight as of this encounter: 103.9 kg (229 lb). Estimated body surface area is 2.23 meters squared as calculated from the following: Height as of this encounter: 172.7 cm (5' 8). Weight as of this encounter: 103.9 kg (229 lb). Mr. Stone is a 61 year old male with past medical history significant for: CAD s/p PCI to RCA, rPDA, LAD; unstable angina. - last dose clopidogrel 09/11 - Hep gtt, asa 81, statin, bb, imdur Atrial fibrillation with slow rate response, currently in NSR PAD s/p LLE stent x 2; patient wants to avoid intermittent compression device on left leg. HTN - amlodipine, carvedilol HLD DM type II - SSI ARNOLDO Low back pain - takes [place] x 1 daily, cannot lay flat for long periods; PAST MEDICAL HISTORY Diagnosis Date - Acute renal failure (HCC) - CAD (coronary artery disease) - Diabetes mellitus (HCC) 11/17/2010 - Essential hypertension, benign - GERD (gastroesophageal reflux disease) 11/17/2010 - H/O percutaneous transluminal coronary angioplasty - Hyperlipidemia - Low testosterone 12/12/2011 - Other and unspecified hyperlipidemia - PAD (peripheral artery disease) (HCC) - Paroxysmal atrial fibrillation (HCC) - Raynaud's syndrome - Shift work sleep disorder 05/03/2015 - Type 2 diabetes mellitus with stage 3 chronic kidney disease, with long-term current use of insulin (HCC) 12/09/2015 - Type II or unspecified type diabetes mellitus with peripheral circulatory disorders, uncontrolled(250.72) 08/28/2013 PAST SURGICAL HISTORY Procedure Laterality Date - COLONOSCOP W/ OR W/O [facility] SPEC - COLONOSCOPY W/BX 4-13-16 - EGD W/O [facility] SPECIMEN W/BX 07-07-15 - HEART CATHETERIZATION 2008 with stents - PAST SURGICAL HISTORY OF 10/03/10 bilat lower extremity arteriogram with angioplasty - PAST SURGICAL HISTORY OF 03/09/10 Bilat lower ext arteriogram left pop and sup fem artery angioplasty - PAST SURGICAL HISTORY OF 09/14/05 bilat arteriogram with left pop manometry - PLACE CATH SUBSUBSELECT ART,ABD/PEL 09/14/05 - REM LESION NEC,HAND,SCAL<0.5CM 01/29/10 Exc. right infra-auricular lesion - REM LESION NEC,HAND,SCAL<0.5CM 12/10/13 EXc. right foot lesion - REPAIR ING HERNIA,5+Y/O,REDUCIBL 1963 Hernia repair, inguinal - REVSC OPN/PRG FEM/POP W/ANGIOPLASTY [facility] 05-11-10 RIGHT POP - REVSC OPN/PRG FEM/POP W/ANGIOPLASTY [facility] 02/17/08 right fem with angioplasty,catheter placed right pop,right sfa,LLE ateriogram - REVSC OPN/PRG FEM/POP W/ANGIOPLASTY [facility] 11/26/07 L fem angio with stenting and smart stent placed - REVSC OPN/PRG FEM/POP W/ANGIOPLASTY [facility] 07-17-11 left leg - REVSC OPN/PRQ FEM/POP W/ATHRC/ANGIOP [facility] 05-11-10 RIGHT SFA - REVSC OPN/PRQ TIB/NI W/ANGIOPLASTY [facility] 05-11-10 RIGHT - REVSC OPN/PRQ TIB/NI W/ANGIOPLASTY [facility] 01-09-14 - REVSC OPN/PRQ TIB/NI W/ATHRC/ANGIOP [facility] 07-03-11 right leg - REVSC OPN/PRQ TIB/NI W/ATHRC/ANGIOP [facility] 02-10-13 RIGHT FAMILY HISTORY Problem Relation Age of Onset - Heart Father - Hypertension Maternal Grandmother - GI Maternal Grandmother - Heart Paternal Grandfather - Cancer Mother lung - Cancer Sister Non hodgkins lymphoma - Diabetes Maternal Grandfather Social History Substance Use Topics - Smoking status: Never Smoker - Smokeless tobacco: Never Used - Alcohol use Yes ALLERGIES Allergen Reactions - Adhesive Rash Redness to skin - Lisinopril Cough - Penicillins Unknown childhood REVIEW OF SYSTEMS: Neuro: Negative Respiratory: No history of current cough or dyspnea, or pneumonia in the past 6 weeks. No history of respiratory/pulmonary symptoms or problems Cardiovascular: See HPI GI: No history of GI symptoms or problems. No history of esophageal varices, recent ascites, or ETOH greater than 2 drinks per day. Endocrine: See HPI Hematology: See HPI ANESTHETIC HISTORY: History of general anesthesia without complications. AIRWAY ASSESSMENT: Airway History: No abnormal airway history Airway Exam: General: Normal appearance Mallampati Score: CLASS I Temporo-Mandibular Displacement Test: Position A (lower teeth can be advanced beyond upper teeth) Interincisor Distance: 6 cm Thyromental Distance: 6 cm Neck Circumference: 40 cm Overbite: Yes Cervical Mobility: Normal Facial Hair: No Head/Neck Pathology: No ANTICIPATED DIFFICULT AIRWAY: NO PHYSICAL EXAM: VITALS: BP 113/56 Pulse 74 Temp 36.7 ?C (98.1 ?F) (Oral) Resp 16 Ht 172.7 cm (5' 8) Wt 103.9 kg (229 lb) SpO2 93% BMI 34.82 kg/m? CARDIAC: Regular rate and rhythm. LUNGS: Lungs clear to auscultation. Good air entry bilaterally. Lines, Drains, Airway: Peripheral O2 Therapy: Room Air (09/20/17 1513) LABS: Lab Results Past 6 Months Component Value Date HB 14.3 09/20/2017 HCT 43.6 09/20/2017 PLT 196 09/20/2017 WBC 11.03 (H) 09/20/2017 NA 136 09/20/2017 K 3.9 09/20/2017 CREAT 1.38 (H) 09/20/2017 CA 9.6 09/20/2017 APTT 50.1 (H) 09/20/2017 INR 1.1 09/20/2017 HBA1C 8.8 (H) 09/15/2017 Lab Results Past 6 Months Component Value Date GLUC 166 (H) 09/20/2017 K 3.9 09/20/2017 NA 136 09/20/2017 CHLOR 98 09/20/2017 CO2 23 09/20/2017 CREAT 1.38 (H) 09/20/2017 BUN 12 09/20/2017 ANION 15 09/20/2017 CA 9.6 09/20/2017 TPROT 7.3 09/13/2017 ALB 4.1 09/13/2017 TBILI 0.6 09/13/2017 ALKPHOS 53 09/13/2017 AST 20 09/13/2017 ALT 23 09/13/2017 ABO/RH(D) (no units) Date Value 09/20/2017 O POSITIVE Antibody Screen (no units) Date Value 09/20/2017 NEG Historical Ab Scr Status (no units) Date Value 09/20/2017 NEGATIVE Anticipated Blood Products Ordered: No blood product orders needed. Will the Patient Accept Blood: Yes IMAGING AND TESTS: ECHO MEASUREMENTS: ?Value ? Indexed ? ?Normal Max aortic dimension ? ? 3.2 cm ?1.42 cm/m? Left atrium diameter ? ? 3.5?cm (M-Mode) Left atrial volume ? ? ? 41 ml (biplane A-L) 18 ml/m? ? Amy <= 34 LV ID (diastole) ? 4.9 cm (2D) LV ID (systole) ?3.2 cm (2D) IVS, leaflet tips ?0.9 cm (2D) Posterior wall thickness 1.1 cm (2D) Left ventricular mass ?77 g/m? LV stroke volume ? 39 ml (2D biplane) LV end diastolic volume ?64 ml (2D biplane) ?28.6 ml/m? 34<=EDVi<75 LV end systolic volume ? 25 ml (2D biplane) ?11.3 ml/m? Ejection Fraction ?60 % (2D biplane) ?EF > 52 FINDINGS: LEFT VENTRICLE The left ventricle is small. There is mild concentric left ventricular hypertrophy. Left ventricular systolic function is normal. Grade I left ventricular diastolic dysfunction. Mitral annular lateral E/e': 8.1. Mitral annular septal E/e': 12.7. Wall Motion: The basal inferior segment is akinetic. The mid inferior segment is mildly hypokinetic. All remaining scored segments are normal. ? RIGHT VENTRICLE The right ventricle is normal in size. Right ventricular systolic function is low normal. RV systolic tissue Doppler velocity is 10.3 cm/s. Estimated right ventricular systolic pressure is not reported due to an insufficient tricuspid regurgitation signal. ? LEFT ATRIUM The left atrial cavity is normal in size. Pulmonary Veins: The pulmonary venous pattern showed blunted systolic flow. RIGHT ATRIUM The right atrial cavity is normal in size. Inferior Vena Cava: The inferior vena cava appears normal measuring 1.6 cm. The vessel decreases greater than 50 percent with inspiration. MITRAL VALVE The mitral valve leaflets are structurally normal. There is trivial mitral valve regurgitation. The pressure half time is 38 msec. The peak mitral E/A ratio is 0.89. The average mitral E/e' ratio is 10.4. The mitral flow deceleration time is 132 msec. ? TRICUSPID VALVE The tricuspid valve leaflets are structurally normal. There is trivial tricuspid valve regurgitation. ? AORTIC VALVE There is no aortic valve regurgitation. Tricuspid aortic valve. There is mild thickening. The peak gradient is 6 mmHg (peak velocity = 125.0 cm/s). ? PULMONIC VALVE The pulmonic valve was not seen or not interrogated. There is trivial pulmonic valve regurgitation. ? AORTA The visualized aorta is normal in size. Measurements - Mid ascending aorta 3.2 cm. Mid arch 2.6 cm. PULMONARY ARTERIES The pulmonary arteries are unseen or not interrogated. ? INTERATRIAL SEPTUM There is no evidence of intracardiac shunting as detected by Doppler. ? INTERVENTRICULAR SEPTUM There is normal motion of the interventricular septum. ? PERICARDIUM There is no pericardial effusion. ? CONCLUSIONS: - Exam indication: CAD - There is a resting wall motion abnormality in the territory of the RCA. - The left ventricle is small. There is mild concentric left ventricular hypertrophy. Left ventricular systolic function is normal. EF = 60 ? 5% (2D biplane) Grade I left ventricular diastolic dysfunction. The basal inferior segment is akinetic. The mid inferior segment is mildly hypokinetic. - The right ventricle is normal in size. Right ventricular systolic function is low normal. - RWMA in RCA territory, as seen on prior echo. - Exam was compared with the prior CC echocardiographic exam performed on 02/11/2015, similar findings. Carotid RIGHT SIDE Common carotid artery: Plaque visualized without evidence of hemodynamically significant stenosis. Internal carotid artery: 20-39% stenosis. Vertebral artery: Patent and antegrade flow noted. ? LEFT SIDE Common carotid artery: Plaque visualized without evidence of hemodynamically significant stenosis. Internal carotid artery: 0-19% stenosis. Vertebral artery: Patent and antegrade flow noted. CT Chest IMPRESSION: AORTIC VALVE: ?mild calcification at the commisures AORTIC ROOT: upper normal size; Diameter: 3.7 cm ASCENDING THORACIC AORTA: normal size; Diameter: 3.6 cm ?; no calcification Diffuse, calcified atherosclerotic changes of the coronary arteries, precluding precise assessment with CT. Presence of stents can not be excluded. Relationship OF CARDIOVASCULAR STRUCTURES TO STERNUM: The left brachio-cephalic vein lies 8 mm behind the manubrium sternum. The RV lies 9 mm behind the lower sternum. AORTIC CALCIFICATION: see above. absence of calcification of the ascending thoracic aorta AORTIC ARCH BRANCH VESSELS: see above. ?Mid and distal subclavian arteries: normal size vessels without evidence of calcification Assessment of patency is not possible in a non-contrast study DEVICES: None MEDICATIONS: Current Facility-Administered Medications: Chlorhexidine Gluconate 0.12 % 15 mL (PERIDEX) 15 mL ORAL q 12 H hydrocortisone topical cream 1% TOPICAL BID senna-docusate 8.6-50 mg 2 tablet (SENNA-S) 2 tablet ORAL BID polyethylene glycol 3350 17 g packet (MIRALAX, GLYCOLAX) 17 g ORAL DAILY atorvastatin 80 mg tab(s) (LIPITOR) 80 mg ORAL DAILY HYDROcodone 5 mg - acetaminophen 325 mg tablet (NORCO) 1 tablet ORAL q 6 H PRN aspirin, enteric coated 81 mg tab(s) (ASPIRIN, ENTERIC COATED) 81 mg ORAL DAILY dextrose 40 % 15 g 15 g ORAL PRN Or glucagon 1 mg injection (GLUCAGEN) 1 mg INTRAMUSCULAR PRN Or dextrose 50% in water 25 mL syringe 12.5 g INTRAVENOUS PRN acetaminophen 325-650 mg tab(s) (TYLENOL) 325-650 mg ORAL q 4 H PRN docusate sodium 100 mg cap(s) (COLACE) 100 mg ORAL BID PRN insulin lispro injection (rapid acting) (HumaLOG) SUBCUTANEOUS w MEALS insulin lispro injection (rapid acting) (HumaLOG) SUBCUTANEOUS AT BEDTIME insulin glargine 5 Units pen (long acting) (LANTUS SOLOSTAR, BASAGLAR KWIKPEN) 5 Units SUBCUTANEOUS AT BEDTIME heparin iv infusion (STROKE NOMOGRAM) 25,000 units in NaCl 0.45% 250 mL PREMIX 0-3,000 Units/hr INTRAVENOUS CONTINUOUS isosorbide mononitrate ER 60 mg tab(s) (IMDUR) 60 mg ORAL DAILY carvedilol 25 mg tab(s) (COREG) 25 mg ORAL BID w MEALS amLODIPine 10 mg tab(s) (NORVASC) 10 mg ORAL DAILY Is the patient currently on any anticoagulant medications: Clopidogrel last dose 09/11, bridge per primary team PAIN AND ANXIETY EDUCATION AND MANAGEMENT: Patient has no concerns to address at this time. Additional Comments: I have reviewed the Cardiothoracic Surgical Assessment and agree with its findings. During the course of the encounter the patient was prepared for anesthetic care. This conversation included anesthetic options, possible use of invasive monitoring, the risks, benefits, alternatives, and personnel that will be present for the anesthetic encounter. The patient agreed to proceed with the planned anesthetic. BETA NICO COMPLIANCE: Is the Patient Scheduled for a CABG: Yes. Patient currently takes a beta nico, and was asked to take it as scheduled. SIGNATURE: Bryon Tan DO PATIENT NAME: Noman Stone DATE: September 20, 2017 TIME: 3:05 PM PAGER/CONTACT #: [email or web address] Observed: 09/20/2017 Status: COMPLETED Source: [place] 1:00 PM [facility] REPOSITORY [facility] ID: [id number] Author: Tanja Nino-T) Yaron Service: Nutrition Therapy Author Type: Patrol Man Type: Nutrition Filed: 09/20/2017 1:01 PM Note Text: NUTRITION THERAPY FOLLOW-UP NOTE SERVICE DATE: 09/20/2017 SERVICE TIME: 1020 Anthropometrics: Height: 172.7 cm (5' 8) Current Weight: Weight: 103.9 kg (229 lb) Body mass index is 34.82 kg/m?. Loss of lean body mass/visual muscle wasting: no Admitting Diagnosis: Unstable Angina Present Diet Order: Heart Healthy 2 gm Na Is the patient having any pain that is interfering with oral/enteral intake? No Allergies: ALLERGIES Allergen Reactions - Adhesive Rash Redness to skin - Lisinopril Cough - Penicillins Unknown childhood Reason for Visit: Nutrition screen: LOS > 6 days Nutrient intake assessment: Current intake of meals: 75 - 100% Patient concerns/Issues: The patient states he is doing well. Snacks and supplements were declined. The patient denied any other issues or concerns noted. Will continue to monitor. Nursing Admission Assessment Malnutrition Score Tool: 0 Plan of Care: Recommendation No problems noted at this time. Will screen again within 7 days Discharge Plan: Heart healthy 2 gm sodium MNT Billing Type: Routine Care/15 min 1 unit SIGNATURE: NICHOLAS Cano PATIENT NAME: Noman Stone DATE: September 20, 2017 TIME: 1:00 PM PAGER: [phone] PROGRESS Observed: 09/20/2017 Status: COMPLETED Source: [place] 12:08 PM [facility] REPOSITORY O ID: [id number] Author: India Ridley) Emch Service: Cardiovascular Medicine Author Type: Physician Medical Illustrator Type: Progress Notes Filed: 09/20/2017 12:18 PM Note Text: [facility] CARDIOVASCULAR MEDICINE PROGRESS NOTE (Template ID [id number]) Noman Stone [id number] PRIMARY SERVICE: Hvi Card Intervention HOSPITAL DAY: # 7 INTERVAL HISTORY Denies CP or SOB PHYSICAL EXAM BP 127/78 Pulse 72 Temp 36.6 ?C (97.8 ?F) (Oral) Resp 20 Ht 172.7 cm (5' 8) Wt 103.9 kg (229 lb) SpO2 93% BMI 34.82 kg/m? Intake/Output Summary (Last 24 hours) at 09/20/17 1208 Last data filed at 09/20/17 1034 Gross per 24 hour Intake 750 ml Output 2100 ml Net -1350 ml General Appearance: Well developed and No acute distress HEENT: EOM's intact Lungs: Clear Heart: Regular rate AND rhythm, S1, S2 normal and Vascular: Pulses - intact Abdomen: Soft, Round, Non-tender and Bowel sounds present Skin: Warm and Dry Musculoskeletal: No deformities Neurologic/Psychiatric: Oriented to time, place AND person MEDICATIONS Current hospital medications: Chlorhexidine Gluconate 0.12 % 15 mL (PERIDEX) 15 mL ORAL q 12 H hydrocortisone topical cream 1% TOPICAL BID senna-docusate 8.6-50 mg 2 tablet (SENNA-S) 2 tablet ORAL BID polyethylene glycol 3350 17 g packet (MIRALAX, GLYCOLAX) 17 g ORAL DAILY atorvastatin 80 mg tab(s) (LIPITOR) 80 mg ORAL DAILY HYDROcodone 5 mg - acetaminophen 325 mg tablet (NORCO) 1 tablet ORAL q 6 H PRN aspirin, enteric coated 81 mg tab(s) (ASPIRIN, ENTERIC COATED) 81 mg ORAL DAILY dextrose 40 % 15 g 15 g ORAL PRN glucagon 1 mg injection (GLUCAGEN) 1 mg INTRAMUSCULAR PRN dextrose 50% in water 25 mL syringe 12.5 g INTRAVENOUS PRN acetaminophen 325-650 mg tab(s) (TYLENOL) 325-650 mg ORAL q 4 H PRN docusate sodium 100 mg cap(s) (COLACE) 100 mg ORAL BID PRN insulin lispro injection (rapid acting) (HumaLOG) SUBCUTANEOUS w MEALS insulin lispro injection (rapid acting) (HumaLOG) SUBCUTANEOUS AT BEDTIME insulin glargine 5 Units pen (long acting) (LANTUS SOLOSTAR, BASAGLAR KWIKPEN) 5 Units SUBCUTANEOUS AT BEDTIME heparin iv infusion (STROKE NOMOGRAM) 25,000 units in NaCl 0.45% 250 mL PREMIX 0-3,000 Units/hr INTRAVENOUS CONTINUOUS isosorbide mononitrate ER 60 mg tab(s) (IMDUR) 60 mg ORAL DAILY carvedilol 25 mg tab(s) (COREG) 25 mg ORAL BID w MEALS amLODIPine 10 mg tab(s) (NORVASC) 10 mg ORAL DAILY DATA Recent Labs 09/20/17 0431 09/19/17 0434 09/18/17 0014 WBC 11.03* 12.03* 10.60 HB 14.3 14.6 13.9 HCT 43.6 44.7 41.5 PLT 196 203 168 Recent Labs 09/20/17 0431 09/19/17 0434 09/18/17 0014 NA 136 136 137 K 3.9 4.0 4.4 CO2 23 25 28 BUN 12 17 17 CREAT 1.38* 1.26* 1.52* GLUC 166* 180* 235* IMAGING reviewed ASSESSMENT AND PLAN 61M with CAD (prior PCI to RCA, rPDA and LAD), PAD with prior LLE stent, HNT, HLD, DMII, ARNOLDO who presents with severe 3v CAD here for consideration of CABG. He describes slowly progressive angina over the last several months. Despite presenting with AF with slow ventricular response, he spontaneously cardioverted to sinus rhythm with normal HR (70s). Reasonable to consider CABG with MAZE and possible SHAD exclusion. Plan: - admit to telemetry - echo pending - continue aspirin (hold P2Y12), statin. Continue BB - LHC uploaded in [employer] for review. Seems a reasonable candidate for CABG with MAZE; CTS consult. - will continue on heparin gtt for AF (currently sinus rhythm) Problem Cad (Coronary Artery Disease) History: S/p ELZA to rRCA 2.5x28mm Promus Premier EES on 02/11/15 c/b dissection during cath not amenable to corrective intervention. 09/11/2016 Developed palpitations, CE negative, Abnormal stress test. LHC at [facility] showed triple vessel disease. Transferred to [facility] for CABG eval. Last dose of Plavix 09/11/2016 Assessment: CP free OSH LHC uploaded into [employer]. Plan: ASA, IV heparin, Statin, BB, Imdur. Consulted CTS, Dr Zapata reviewing information, Scheduled for OHS 09/21/[address] Gray. Peripheral arterial disease History : POA S/p multiple interventions Assessment: Pt reports he can not use IPCs due to poor circulartion peripheral pulses intact cont medical tx ABIs: Rt normal at rest. Lt mild disease at rest Consulted vascular surgery for claudication and severe PAD Stable PVD with near-joshua/normall ABIs (L NIKKI 0.89 and R NIKKI 1.04). ? Plan: -Still ok to proceed with planned CABG and LE vein harvest -Do not need to repeat formal PVRs at this time -Vascular Surgery will sign off, but please call with additional questions Pt states that he can't wear the support hoses and told not to wear the IPC's He is worried about this after surgery. Plan: On heparin drip due to unstable angina,. Continue statin.. 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 Range 04/01/2017 00:00 Hemoglobin A1C Latest Ref Range: 4.8 - 5.9 % 7.9 (A) recheck HGA1C 8.8 Plan:., pt may take his own med Trulicity on Sunday. SS insulin.. Hyperlipidemia History: POA: Home med: atorvastatin. Assessment: Component Latest Ref Rng AND Units 09/14/2017 Cholesterol, Total <200 mg/dL 123 Triglyceride <150 mg/dL 167 (H) HDL Cholesterol >39 mg/dL 34 (L) LDL Cholesterol <100 mg/dL 56 Non HDL Cholesterol <130 mg/dL 89 Fasting Time hrs Unknown VLDL Cholesterol <30 mg/dL 33 (H) TC:HDL Ratio <5.10 3.62 LDL:HDL Ratio <2.54 1.65 Plan: Continue Lipitor 80mg. Renal Insufficiency History: POA, creat on admission was 1.35 Assessment: 09/16/17 increase in creat to 1.49 Dc losartan 09-1409/17/2017 creat 1.49 Kidney u/s 09-17: no hydonephrosis 09/18 creatinine 1.52 09/19 creatinine 1.26 09/20 creatinine 1.38 Plan: Monitor Creat. Leukocytosis History: not present on admission Assessment: 09/19 WBC 12 09/20/2017 WBC 11, no fever Reviewed most recent CXR, UA neither of them suggestive of infection. No complaints of cough, fever, chills, congestion, IV site unremarkable Plan: monitor.. Chronic Low Back Pain History: present SHAKER OUT Assessment: Takes [place] Pt concerned post op laying flat will have a lot of pain Plan: Continue [place] and pt to discuss with anesthesia. Case to be discussed with staff India Pa PA-C Pager [phone] (please see below for after hours communication) 09/20/2017 12:08 PM For communication after 5 pm on weekdays and after 12 pm on weekends, please page the following: - Clinical Cardiology patients on all floors: page [phone] - Other Cardiology patients on J5 and J6: page [phone] - Other Cardiology patients on J7 and J8: page [phone] CONSULT PROG Observed: 09/20/2017 Status: COMPLETED Source: [place] 10:45 AM [facility] REPOSITORY [facility]NO ID: [id number] Author: Shira Rae) Man Service: Cardiac Surgery Author Type: Nurse Practitioner Type: Consult Progress Note Filed: 09/20/2017 10:49 AM Note Text: [facility] PROGRESS NOTE Noman Stone [id number] Dr. Torrez is out of town, case discussed with Dr. Gray, and will perform CABG in am). CTS staff Dr. Isabel Gray Intended surgery: CABG Date of surgery: Tomorrow 09/21 first round. Will stop Heparin drip at 0200 09/21 Dr. Gray to see patient later today. ASSESSMENT AND PLAN: Problem Preop Testing [facility] PRE-OP CHECKLIST Surgeon: Dr. Isabel Gray Informed Consent Completed: pending STS Score: CABG MAZE LAAL (documented PAF) CAD: Yes - CAD on Problem List: Yes Is intended procedure a CABG: Yes - is a beta nico ordered? Yes H AND P completed: Yes PA/LAT: Completed CT: Completed MRI: N/A LE US: Completed Cath: Yes - reviewed: Yes Echo:Completed EKG: Completed EF %: mnormal PI's: Completed good left PI: > 67%. Carotid: Completed Mapping: Completed Dental: N/A PFT's: N/A CBC, Coags, BMP, Mg, Phos Recent Labs 09/20/17 0431 09/19/17 0434 09/18/17 0014 09/18/17 0012 WBC 11.03* 12.03* 10.60 -- HB 14.3 14.6 13.9 -- HCT 43.6 44.7 41.5 -- PLT 196 203 168 -- APTT 50.1* 55.7* -- 53.4* NA 136 136 137 -- K 3.9 4.0 4.4 -- CHLOR 98 97 100 -- CO2 23 25 28 -- BUN 12 17 17 -- CREAT 1.38* 1.26* 1.52* -- GLUC 166* 180* 235* -- CA 9.6 9.8 8.9 -- UA: Normal HCG:N/A ABO/ABO Confirmed: Yes Blood ordered: Yes SA Swab: Yes - results: Negative Last Dose of Anticoagulation: Plavix and Heparin Op Note: No Pacemaker Check: No Implants: no Consults: vascular surgery, Endocrine DM: Yes Cardiac Surgical prep: Yes SIGNATURE: Shira Pérez RN FRUIT PEELER.ASSISTANT STRENGTH COACH CHECKED BY: DATE of SERVICE: 09/17/2017 TIME of SERVICE: 1:13 PM Informed patient (and family) what to expect pre/post operatively Stressed to patient the importance of pain control for successful recovery: INFORMED OF IMPORTANCE OF GOOD PAIN UCBLOYI-[id number]-kud for pain medication early when pain level is 2/0-10Informed patient (and family) what to expect pre/post operatively IMPORTANCE OF PAIN [id number]-[id number]-xki for pain medication early, take pain medication routinely to have adquate pain control to prevent postop complications ie Pneumonia, Deep Vein Thrombosis, Delayed Wound Healing, Longer Hospital Stay. Explained importance of Deep Breathing/Coughing before and after surgery pain scale, take pain medication routinely to have adquate pain control to prevent postop complications for example,? Pneumonia, Deep Vein Thrombosis, Delayed Wound Healing, Longer Hospital Stay. ? Explained the importance of Bowel Maintenance-taking stool softners (or laxatives if indicated) to maintain regular bowel movements while on pain medication. Informed of benefits of adequate pain control- taking pain medication when pain level is -ask for pain medication; Inform pt may want to ask for pain medication around the clock/routinely on first postop Day on Regular Nursing Floor- thereby promoting recovery;-able to breathe deeply and adequately thus decrease Oxygen requirements of body, Able to walk, get out of bed- thereby decrease recovery time and decreased risk for infection. Explained importance of Deep Breathing/Coughing before and after surgery Instructed in breathing exercises-deep breaths 10 times/hour while awake. Pt verbalized understanding and demostrated understanding via return demonstration. ? Discussed discharged plans-informed patient , a Cardiac Surgery Nurse Practitioner visit is recommended within 3-7 days after being discharged if lived in near [place], [place] area or within [address] of [place], [place]. Discussed with Patient (Family) will need to see their PCP and Procurement Director? following discharged- specific time frames for postop visits for Cardiac Surgery Nurse Practitioner, PCP and Procurement Director will be discussed at time of discharged. Patient (Family) Verbalized understanding. SIGNATURE: Shira Pérez RN APRN.ASSISTANT STRENGTH COACH PAGER: [phone] DATE of SERVICE: 09/20/2017 TIME of SERVICE: 10:49 AM PROTIME Collected: 09/20/2017 Status: F Source: [facility] 10:42 AM [facility] REPOSITORY TYPE CODE TESTS RESULT OUT OF RANGE REFERENCE UNITS LAB PSEC 9.7-13.0 sec PT Sec 11.4 LAB INR 0.9-1.3 PT INR 1.1 Result Comment: Vitamin K Antagonist (VKA) Therapeutic Range: INR 2 to 3 (Target INR of 2.5) Note: For patients treated with VKA drugs, such as warfarin, the [place] [employer] 2012 Guideline recommends a therapeutic INR range of 2 to 3 (target INR of 2.5). This recommendation includes high-risk patients with antiphospholipid syndrome with previous arterial or venous thromboembolism, current-generation mechanical or bioprosthetic aortic heart valve replacement. Note: Patients with mechanical aortic valve replacement and additional risk factors for thromboembolic events (atrial fibrillation, previous thromboembolism, LV dysfunction, hypercoagulable conditions) or an older generation mechanical AVR (i.e., ball in-Cage) or any mechanical MVR should have a INR therapeutic range of 2.5 to 3.5 (target INR of 3). Bety GH, et al. Chest 2012, 141:7S-47S Joy RA, et al. [facility] 2017, 70: 252-289 Performed By: #### PT #### [facility] [address] [place], [place] [address] TYPE AND SCREEN Collected: 09/20/2017 Status: F Source: [facility] 10:42 AM [facility] REPOSITORY TYPE CODE TESTS RESULT OUT OF REFERENCE UNITS RANGE LAB %ABR O ABO/RH(D) POSITIVE LAB % Antibody NEG Screen Performed By: #### TSCR #### [facility] [address] [place], [place] [address] PTT,ANTICOAG THERAPY Collected: 09/20/2017 Status: F Source: [place] 4:31 AM [facility] REPOSITORY TYPE CODE TESTS RESULT OUT OF RANGE REFERENCE UNITS LAB APTT 23.0-32.4 sec High APTT 50.1 Result Comment: Unfractionated Heparin Therapeutic Ranges: Standard Heparin Nomogram: 53 to 78 seconds (anti-Xa level of 0.3 to 0.7 U/ml) Low Dose/ACS Nomogram: 49 to 67 seconds (anti-Xa level of 0.2 to 0.5 U/ml) Stroke Treatment Nomogram: 49 to 67 seconds (anti-Xa level of 0.2 to 0.5 U/ml) Note: The APTT therapeutic range has been determined for the current lot of laboratory APTT reagent in use throughout the [facility]. Performed By: #### PTTAC, CBC, BMP #### [facility] [address] [place], [place] [address] CBC Collected: 09/20/2017 Status: F Source: [facility] 4:31 AM [facility] REPOSITORY TYPE CODE TESTS RESULT OUT OF REFERENCE UNITS RANGE LAB WBC 3.70-11.00 k/uL WBC High 11.03 LAB RBC 4.20-6.00 m/uL RBC 4.87 LAB HGB 13.0-17.0 g/dL Hemoglobin 14.3 LAB HCT 39.0-51.0 % Hematocrit 43.6 LAB MCV 80.0-100.0 fL MCV 89.5 LAB MCH 26.0-34.0 pG MCH 29.4 LAB MCHC 30.5-36.0 g/dL MCHC 32.8 LAB RDWCV 11.5-15.0 % RDW-CV 13.4 LAB PLTCT 150-400 k/uL Platelet Count 196 LAB MPV 9.0-12.7 fL MPV 10.7 LAB ABSNUC <0.01 k/uL Absolute nRBC <0.01 Performed By: #### PTTAC, CBC, BMP #### [facility] [address] [place], [place] [address] BASIC METABOLIC PANL Collected: 09/20/2017 Status: F Source: [facility] 4:31 AM [facility] REPOSITORY TYPE CODE TESTS RESULT OUT OF REFERENCE UNITS RANGE LAB GLU 74-99 mg/dL High Glucose 166 Result Comment: The [place] [employer] (ADA) provides guidance for cutoff values for fasting glucose and random glucose. The ADA defines fasting as no caloric intake for at least 8 hours. Fas ting plasma glucose results between 100 to 125 mg/dL indicate increased risk for diabetes (prediabetes). Fasting plasma glucose results greater than or equal to 126 mg/dL meet the criteria for diagnosis of diabetes. In the absence of unequivocal hyperglycemia, results should be confirmed by repeat testing. In a patient with classic symptoms of hyperglycemia or hyperglycemic crisis, random plasma glucose results greater than or equal to 200 mg/dL meet the criteria for diagnosis of diabetes. Reference: Standards of Medical Care in Diabetes 2016, [place] [employer]. Diabetes Care. 2016.39(Suppl 1). LAB BUN 9-24 mg/dL BUN 12 LAB CRET 0.73-1.22 mg/dL Creatinine High 1.38 LAB NA 136-144 mmol/L Sodium 136 LAB K 3.7-5.1 mmol/L Potassium 3.9 LAB CL 97-105 mmol/L Chloride 98 LAB CO2 22-30 mmol/L CO2 23 LAB AGAP 9-18 mmol/L Anion Gap 15 LAB CA 8.5-10.2 mg/dL Calcium, Total 9.6 LAB GFRAA eGFR- Amer. >60 LAB GFRNAA . eGFR-All Other Races 52 Result Comment: eGFR (Estimated GFR) Units of measure: mL/min/1.73 meters squared eGFR is derived from the reexpressed MDRD Study equation using the following parameters: serum creatinine, age, gender and race. The creatinine assay has been calibrated to be traceable to IDMS. An eGFR <60 mL/min/1.73m2 for >3 months is consistent with chronic kidney disease. Refer to KDOQI guidelines for clinical interpretation. In patients with unstable renal function, e.g. those with acute kidney injury, the eGFR may not accurately reflect actual GFR. Performed By: #### PTTAC, CBC, BMP #### [facility] [address] [place], [place] [address] NURSING PROG Observed: 09/20/2017 Status: COMPLETED Source: [facility] 3:38 AM [facility] REPOSITORY HNO ID: [id number] Author: Lakeisha VelázquezRn) GENIA Martinez Service: Nursing Author Type: Registered Nurse Type: Nursing Progress Note Filed: 09/20/2017 3:42 AM Note Text: Nursing Progress Note Patient Name: Noman Stone Patient Location: [place] [id number] Event(s) / Intervention Note: The patient complained of the following problems: 4/10 chest pressure. BP 148/81, HR 70, O2 92RA, no SOB. EKG obtained and transmitted. The time of the event occurred at: 109. The following intervention(s) were initiated: Dr. Sharp notified at .. After the initiated interventions, the following observation(s) were made: physician is at bedside. See MAR for orders. Will continue to monitor and assess. 02:30 Pt reports complete relief of pain. Continuing to monitor. This note was completed by: Lakeisha Martinez RN EKG1 Observed: 09/20/2017 Status: F Source: [facility] 2:00 AM [facility] REPOSITORY NAME : NOMAN STONE PID : [id number] : 1955 Gender : Male Race : ORD : Procedure Date : Sep 20 2017 02:00:05 Edit Date : Sep 23 2017 17:20:50 Diagnosis:NORMAL SINUS RHYTHM NORMAL ECG Confirmed by Chase Jacob ([id number]) on 09/23/2017 5:20:44 PM Ventricular Rate : 66 BPM Atrial Rate : 66 BPM P-R Interval : 194 ms QRS Duration : 92 ms Q-T Interval : 394 ms QTC Calculation(Bezet) : 413 ms P [place] : 44 degrees R [place] : 19 degrees T [place] : 25 degrees Test Reason : Location : 462 : [id number] Overread By : Chase Jacob Edited By : Chase Jacob Referred By : , Acquired by : [id number], [email or web address] Observed: 09/20/2017 Status: F Source: [facility] 1:14 AM [facility] REPOSITORY NAME : NOMAN STONE PID : [id number] : 1955 Gender : Male Race : ORD : Procedure Date : Sep 20 2017 01:14:41 Edit Date : Sep 23 2017 15:03:37 Diagnosis:NORMAL SINUS RHYTHM NORMAL ECG Confirmed by Chase Jacob ([id number]) on 09/23/2017 3:03:31 PM Ventricular Rate : 60 BPM Atrial Rate : 60 BPM P-R Interval : 204 ms QRS Duration : 94 ms Q-T Interval : 392 ms QTC Calculation(Bezet) : 392 ms P [place] : 49 degrees R [place] : 22 degrees T [place] : 33 degrees Test Reason : Location : 462 : [id number] Overread By : Chase Jacob Edited By : Chase Jacob Referred By : , Acquired by : [id number], PROGRESS Observed: 09/19/2017 Status: COMPLETED Source: [facility] 9:56 AM [facility] REPOSITORY HNO ID: [id number] Author: Hector Brewer (Pa) Service: Cardiovascular Medicine Author Type: Physician Medical Illustrator Type: Progress Notes Filed: 09/19/2017 10:10 AM Note Text: [facility]ARDI[facility]ULAR [facility]ICINE PROGRESS NOTE (Template ID [id number]) Noman Stnoe [id number] PRIMARY SERVICE: Hvi Card Intervention, Dr Nguyen [facility]: # 6 INTERVAL HISTORY Pt is sitting in the chair, finishing breakfast. He has no chest pain or dyspnea.he is awaiting surgical date from CTS . He had some constipation yesterday, had a bowel movement today, wants to continue on stool softeners. He is worried about his legs and circulation and he has stents in his legs. He can't wear the support hoses and he was told not to wear the IPC either. PHYSICAL EXAM BP 127/83 Pulse 69 Temp 36.8 ?C (98.3 ?F) (Oral) Resp 18 Ht 172.7 cm (5' 8) Wt 105 kg (231 lb 6.4 oz) SpO2 95% BMI 35.18 kg/m? Intake/Output Summary (Last 24 hours) at 09/19/17 1010 Last data filed at 09/19/17 0900 Gross per 24 hour Intake 1120 ml Output 1400 ml Net -280 ml General Appearance: Well developed and No distress HEENT: EOM's intact, JVD - no and Bruits - no Lungs: Clear Heart: Regular rate AND rhythm,no Murmur , S1, S2 normal, S4 present, trace lower leg edema and Vascular: Pulses - +2 intact Abdomen: Soft, Round, Non-tender, Bowel sounds present, Bruits - no and Organomegaly - no Skin: Warm and Dry Musculoskeletal: No deformities Neurologic/Psychiatric: Oriented to time, place AND person MEDICATIONS Current hospital medications: hydrocortisone topical cream 1% TOPICAL BID senna-docusate 8.6-50 mg 2 tablet (SENNA-S) 2 tablet ORAL BID polyethylene glycol 3350 17 g packet (MIRALAX, GLYCOLAX) 17 g ORAL DAILY atorvastatin 80 mg tab(s) (LIPITOR) 80 mg ORAL DAILY HYDROcodone 5 mg - acetaminophen 325 mg tablet (NORCO) 1 tablet ORAL q 6 H PRN aspirin, enteric coated 81 mg tab(s) (ASPIRIN, ENTERIC COATED) 81 mg ORAL DAILY dextrose 40 % 15 g 15 g ORAL PRN glucagon 1 mg injection (GLUCAGEN) 1 mg INTRAMUSCULAR PRN dextrose 50% in water 25 mL syringe 12.5 g INTRAVENOUS PRN acetaminophen 325-650 mg tab(s) (TYLENOL) 325-650 mg ORAL q 4 H PRN docusate sodium 100 mg cap(s) (COLACE) 100 mg ORAL BID PRN insulin lispro injection (rapid acting) (HumaLOG) SUBCUTANEOUS w MEALS insulin lispro injection (rapid acting) (HumaLOG) SUBCUTANEOUS AT BEDTIME insulin glargine 5 Units pen (long acting) (LANTUS SOLOSTAR, BASAGLAR KWIKPEN) 5 Units SUBCUTANEOUS AT BEDTIME heparin iv infusion (STROKE NOMOGRAM) 25,000 units in NaCl 0.45% 250 mL PREMIX 0-3,000 Units/hr INTRAVENOUS CONTINUOUS isosorbide mononitrate ER 60 mg tab(s) (IMDUR) 60 mg ORAL DAILY carvedilol 25 mg tab(s) (COREG) 25 mg ORAL BID w MEALS amLODIPine 10 mg tab(s) (NORVASC) 10 mg ORAL DAILY DATA Recent Labs 09/19/17 0434 09/18/17 0014 09/17/17 0405 WBC 12.03* 10.60 9.98 HB 14.6 13.9 14.1 HCT 44.7 41.5 43.0 PLT 203 168 189 Recent Labs 09/19/17 0434 09/18/17 0014 09/17/17 0405 NA 136 137 136 K 4.0 4.4 4.0 CO2 25 28 25 BUN 17 17 17 CREAT 1.26* 1.52* 1.49* GLUC 180* 235* 171* IMAGING ASSESSMENT AND PLAN 61M with CAD (prior PCI to RCA, rPDA and LAD), PAD with prior LLE stent, HNT, HLD, DMII, ARNOLDO who presents with severe 3v CAD here for consideration of CABG. He describes slowly progressive angina over the last several months. Despite presenting with AF with slow ventricular response, he spontaneously cardioverted to sinus rhythm with normal HR (70s). Reasonable to consider CABG with MAZE and possible SHAD exclusion. Plan: - admit to telemetry - echo pending - continue aspirin (hold P2Y12), statin. Continue BB - LHC uploaded in [employer] for review. Seems a reasonable candidate for CABG with MAZE; CTS consult. - will continue on heparin gtt for AF (currently sinus rhythm) Problem Cad (Coronary Artery Disease) History: S/p ELZA to rRCA 2.5x28mm Promus Premier EES on 02/11/15 c/b dissection during cath not amenable to corrective intervention. 09/11/2016 Developed palpitations, CE negative, Abnormal stress test. LHC at [facility] showed triple vessel disease. Transferred to [facility] for CABG eval. Last dose of Plavix 09/11/2016 Assessment: CP free OSH LHC uploaded into [employer]. Plan: ASA, IV heparin, Statin, BB, Imdur. Consulted CTS, Dr Zapata reviewing information, surgery date pending Peripheral arterial disease History : POA S/p multiple interventions Assessment: Pt reports he can not use IPCs due to poor circulartion peripheral pulses intact cont medical tx ABIs: Rt normal at rest. Lt mild disease at rest Consulted vascular surgery for claudication and severe PAD Stable PVD with near-joshua/normall ABIs (L NIKKI 0.89 and R NIKKI 1.04). ? Plan: -Still ok to proceed with planned CABG and LE vein harvest -Do not need to repeat formal PVRs at this time -Vascular Surgery will sign off, but please call with additional questions Pt states that he can't wear the support hoses and told not to wear the IPC's He is worried about this after surgery. Plan: On heparin drip due to unstable angina,. 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 Range 04/01/2017 00:00 Hemoglobin A1C Latest Ref Range: 4.8 - 5.9 % 7.9 (A) recheck HGA1C 8.8 Plan:, pt may take his own med Trulicity on Sunday. SS insulin.. Htn (Hypertension) History: Home meds: Imdur 60mg, losartan 25mg, carvedilol 25mg BID, Norvasc 10mg., HCTZA 12.5mg Assessment: BP controlled. 09/17/2017 Held losartan due to worsening renal function Plan: .Continue home meds except for losartan and HCTZ, monitor need to titrate meds.. Hyperlipidemia History: POA: Home med: atorvastatin. Assessment: Component Latest Ref Rng AND Units 09/14/2017 Cholesterol, Total <200 mg/dL 123 Triglyceride <150 mg/dL 167 (H) HDL Cholesterol >39 mg/dL 34 (L) LDL Cholesterol <100 mg/dL 56 Non HDL Cholesterol <130 mg/dL 89 Fasting Time hrs Unknown VLDL Cholesterol <30 mg/dL 33 (H) TC:HDL Ratio <5.10 3.62 LDL:HDL Ratio <2.54 1.65 Plan: Continue Lipitor 80mg Obesity, Class II, Bmi 35-39.9 History: POA Assessment: Body mass index is 36.36 kg/m?. Plan: discussed wt loss Chronic Low Back Pain History: present SHAKER OUT Assessment: Takes [place] Pt concerned post op laying flat will have a lot of pain Plan: Continue [place] and pt to discuss with anesthesia Renal Insufficiency History: POA, baseline creat is 1.3 Assessment: 09/16/17 increase in creat to 1.49 09/17/2017 creat 1.49 Kidney u/s 09-17 no hydonephrosis Dc losartan 09-14 creatinine 1.52 09/19 creatinine 1.26 Plan: Monitor Creat Case to be discussed with staff Hector Brewer PA-C Pager [phone] (please see below for after hours communication) 09/19/2017 9:56 AM For communication after 5 pm on weekdays and after 12 pm on weekends, please page the following: - Clinical Cardiology patients on all floors: page [phone] - Other Cardiology patients on J5 and J6: page [phone] - Other Cardiology patients on J7 and J8: page [phone] CBC Collected: 09/19/2017 Status: F Source: [facility] 4:34 AM [facility] REPOSITORY TYPE CODE TESTS RESULT OUT OF REFERENCE UNITS RANGE LAB WBC 3.70-11.00 k/uL WBC High 12.03 LAB RBC 4.20-6.00 m/uL RBC 4.95 LAB HGB 13.0-17.0 g/dL Hemoglobin 14.6 LAB HCT 39.0-51.0 % Hematocrit 44.7 LAB MCV 80.0-100.0 fL MCV 90.3 LAB MCH 26.0-34.0 pG MCH 29.5 LAB MCHC 30.5-36.0 g/dL MCHC 32.7 LAB RDWCV 11.5-15.0 % RDW-CV 13.4 LAB PLTCT 150-400 k/uL Platelet Count 203 LAB MPV 9.0-12.7 fL MPV 10.9 LAB ABSNUC <0.01 k/uL Absolute nRBC <0.01 Performed By: #### CBC, PTT, BMP #### [facility] [address] [place], [place] [address] APTT Collected: 09/19/2017 Status: F Source: [facility] 4:34 [facility] REPOSITORY TYPE CODE TESTS RESULT OUT OF RANGE REFERENCE UNITS LAB APTT 23.0-32.4 sec High APTT 55.7 Result Comment: Unfractionated Heparin Therapeutic Ranges: Standard Heparin Nomogram: 53 to 78 seconds (anti-Xa level of 0.3 to 0.7 U/ml) Low Dose/ACS Nomogram: 49 to 67 seconds (anti-Xa level of 0.2 to 0.5 U/ml) Stroke Treatment Nomogram: 49 to 67 seconds (anti-Xa level of 0.2 to 0.5 U/ml) Note: The APTT therapeutic range has been determined for the current lot of laboratory APTT reagent in use throughout the [facility]. Performed By: #### CBC, PTT, BMP #### [facility] [address] [place], [place] [address] BASIC METABOLIC PANL Collected: 09/19/2017 Status: F Source: [place] 4:[address] [place] [address] REPOSITORY TYPE CODE TESTS RESULT OUT OF REFERENCE UNITS RANGE LAB GLU 74-99 mg/dL High Glucose 180 Result Comment: The [place] [employer] (ADA) provides guidance for cutoff values for fasting glucose and random glucose. The ADA defines fasting as no caloric intake for at least 8 hours. Fas ting plasma glucose results between 100 to 125 mg/dL indicate increased risk for diabetes (prediabetes). Fasting plasma glucose results greater than or equal to 126 mg/dL meet the criteria for diagnosis of diabetes. In the absence of unequivocal hyperglycemia, results should be confirmed by repeat testing. In a patient with classic symptoms of hyperglycemia or hyperglycemic crisis, random plasma glucose results greater than or equal to 200 mg/dL meet the criteria for diagnosis of diabetes. Reference: Standards of Medical Care in Diabetes 2016, [place] [employer]. Diabetes Care. 2016.39(Suppl 1). LAB BUN 9-24 mg/dL BUN 17 LAB CRET 0.73-1.22 mg/dL Creatinine High 1.26 LAB NA 136-144 mmol/L Sodium 136 LAB K 3.7-5.1 mmol/L Potassium 4.0 LAB CL 97-105 mmol/L Chloride 97 LAB CO2 22-30 mmol/L CO2 25 LAB AGAP 9-18 mmol/L Anion Gap 14 LAB CA 8.5-10.2 mg/dL Calcium, Total 9.8 LAB GFRAA eGFR- Amer. >60 LAB GFRNAA . eGFR-All Other Races 58 Result Comment: eGFR (Estimated GFR) Units of measure: mL/min/1.73 meters squared eGFR is derived from the reexpressed MDRD Study equation using the following parameters: serum creatinine, age, gender and race. The creatinine assay has been calibrated to be traceable to IDMS. An eGFR <60 mL/min/1.73m2 for >3 months is consistent with chronic kidney disease. Refer to KDOQI guidelines for clinical interpretation. In patients with unstable renal function, e.g. those with acute kidney injury, the eGFR may not accurately reflect actual GFR. Performed By: #### CBC, PTT, BMP #### [facility] [address] [place] [id number] PLAN OF CARE Observed: 09/18/2017 Status: COMPLETED Source: [facility] 1:38 PM [facility] REPOSITORY HNO ID: [id number] Author: Jacky Lorenzo MD Service: Vascular Surgery Author Type: Resident Type: Plan of Care Filed: 09/18/2017 1:42 PM Note Text: Brief Vascular Surgery Plan of Care Note: Patient discussed with both Dr. Ambrosio and Dr. Corrales this am and prior vascular studies reviewed as well. Stable PVD with near-joshua/normall ABIs (L NIKKI 0.89 and R NIKKI 1.04). Plan: -Still ok to proceed with planned CABG and LE vein harvest -Do not need to repeat formal PVRs at this time -Vascular Surgery will sign off, but please call with additional questions Jacky Lorenzo MD Resident Vascular Surgery Pager [phone] Hot Top Liner Helper Pager [phone] PROGRESS Observed: 09/18/2017 Status: COMPLETED Source: [place] 1:01 PM [facility] REPOSITORY HNO ID: [id number] Author: [place] Pa Service: Cardiovascular Medicine Author Type: Physician Medical Illustrator Type: Progress Notes Filed: 09/18/2017 1:05 PM Note Text: [facility] CARDI[facility]ULAR [facility]ICINE PROGRESS NOTE (Template ID [id number]) Noman Stone [id number] PRIMARY SERVICE: Hvi Card Intervention HOSPITAL DAY: # 5 INTERVAL HISTORY CTS work up continues. Denies CP or SOB. PHYSICAL EXAM BP 104/66 Pulse 71 Temp 36.7 ?C (98 ?F) (Oral) Resp 18 Ht 172.7 cm (5' 8) Wt 105.1 kg (231 lb 11.2 oz) SpO2 93% BMI 35.23 kg/m? Intake/Output Summary (Last 24 hours) at 09/18/17 1301 Last data filed at 09/18/17 1000 Gross per 24 hour Intake 540 ml Output 2000 ml Net -1460 ml General Appearance: No acute distress HEENT: EOM's intact Lungs: Clear Heart: Regular rate AND rhythm, S1, S2 normal, Vascular: Pulses - intact and no edema Abdomen: Soft, Round, Non-tender and Bowel sounds present Skin: Warm, Dry and rt radial puncture site is healing well without redness, drainage or edema Musculoskeletal: No deformities Neurologic/Psychiatric: Oriented to time, place AND person MEDICATIONS Current hospital medications: hydrocortisone topical cream 1% TOPICAL BID senna-docusate 8.6-50 mg 2 tablet (SENNA-S) 2 tablet ORAL BID polyethylene glycol 3350 17 g packet (MIRALAX, GLYCOLAX) 17 g ORAL DAILY atorvastatin 80 mg tab(s) (LIPITOR) 80 mg ORAL DAILY HYDROcodone 5 mg - acetaminophen 325 mg tablet (NORCO) 1 tablet ORAL q 6 H PRN aspirin, enteric coated 81 mg tab(s) (ASPIRIN, ENTERIC COATED) 81 mg ORAL DAILY dextrose 40 % 15 g 15 g ORAL PRN glucagon 1 mg injection (GLUCAGEN) 1 mg INTRAMUSCULAR PRN dextrose 50% in water 25 mL syringe 12.5 g INTRAVENOUS PRN acetaminophen 325-650 mg tab(s) (TYLENOL) 325-650 mg ORAL q 4 H PRN docusate sodium 100 mg cap(s) (COLACE) 100 mg ORAL BID PRN insulin lispro injection (rapid acting) (HumaLOG) SUBCUTANEOUS w MEALS insulin lispro injection (rapid acting) (HumaLOG) SUBCUTANEOUS AT BEDTIME insulin glargine 5 Units pen (long acting) (LANTUS SOLOSTAR, BASAGLAR KWIKPEN) 5 Units SUBCUTANEOUS AT BEDTIME heparin iv infusion (STROKE NOMOGRAM) 25,000 units in NaCl 0.45% 250 mL PREMIX 0-3,000 Units/hr INTRAVENOUS CONTINUOUS isosorbide mononitrate ER 60 mg tab(s) (IMDUR) 60 mg ORAL DAILY carvedilol 25 mg tab(s) (COREG) 25 mg ORAL BID w MEALS amLODIPine 10 mg tab(s) (NORVASC) 10 mg ORAL DAILY DATA Recent Labs 09/18/17 0014 09/17/17 0405 09/16/17 0531 WBC 10.60 9.98 9.44 HB 13.9 14.1 14.8 HCT 41.5 43.0 45.1 PLT 168 189 180 Recent Labs 09/18/17 0014 09/17/17 0405 09/16/17 0803 NA 137 136 137 K 4.4 4.0 4.0 CO2 28 25 26 BUN 17 17 17 CREAT 1.52* 1.49* 1.49* GLUC 235* 171* 131* IMAGING reviewed ASSESSMENT AND PLAN 61M with CAD (prior PCI to RCA, rPDA and LAD), PAD with prior LLE stent, HNT, HLD, DMII, ARNOLDO who presents with severe 3v CAD here for consideration of CABG. He describes slowly progressive angina over the last several months. Despite presenting with AF with slow ventricular response, he spontaneously cardioverted to sinus rhythm with normal HR (70s). Reasonable to consider CABG with MAZE and possible SHAD exclusion. Plan: - admit to telemetry - echo pending - continue aspirin (hold P2Y12), statin. Continue BB - LHC uploaded in [employer] for review. Seems a reasonable candidate for CABG with MAZE; CTS consult. - will continue on heparin gtt for AF (currently sinus rhythm) Problem Cad (Coronary Artery Disease) History: S/p ELZA to rRCA 2.5x28mm Promus Premier EES on 02/11/15 c/b dissection during cath not amenable to corrective intervention. 09/11/2016 Developed palpitations, CE negative, Abnormal stress test. LHC at [facility] showed triple vessel disease. Transferred to [facility] for CABG eval. Last dose of Plavix 09/11/2016 Assessment: CP free OSH LHC uploaded into [employer]. Plan: ASA, IV heparin, Statin, BB, Imdur. Consulted CTS, Dr Zapata reviewing information, surgery date pending.. Peripheral arterial disease History : POA S/p multiple interventions Assessment: Pt reports he can not use IPCs due to poor circulartion peripheral pulses intact cont medical tx ABIs: Rt normal at rest. Lt mild disease at rest Plan: On heparin drip due to unstable angina,. Continue statin Diabetes Mellitus Type 2 With Peripheral Artery Disease (Hcc) Home meds: Januvia, glimepiride, metformin Assessment: Results for NOMAN STONE ( ) as of 09/14/2017 14:01 Ref. Range 04/01/2017 00:00 Hemoglobin A1C Latest Ref Range: 4.8 - 5.9 % 7.9 (A) Plan: .recheck HGA1C, pt may take his own med Trulicity on Sunday. SS insulin.. Htn (Hypertension) History: Home meds: Imdur 60mg, losartan 25mg, carvedilol 25mg BID, Norvasc 10mg., HCTZA 12.5mg Assessment: BP controlled. 09/17/2017 Held losartan due to worsening renal function Plan: .Continue home meds except for losartan and HCTZ, monitor need to titrate meds.. Hyperlipidemia History: POA: Home med: atorvastatin. Assessment: Component Latest Ref Rng AND Units 09/14/2017 Cholesterol, Total <200 mg/dL 123 Triglyceride <150 mg/dL 167 (H) HDL Cholesterol >39 mg/dL 34 (L) LDL Cholesterol <100 mg/dL 56 Non HDL Cholesterol <130 mg/dL 89 Fasting Time hrs Unknown VLDL Cholesterol <30 mg/dL 33 (H) TC:HDL Ratio <5.10 3.62 LDL:HDL Ratio <2.54 1.65 Plan: Continue Lipitor 80mg Case to be discussed with staff India Pa PA-C Pager [phone] (please see below for after hours communication) 09/18/2017 1:01 PM For communication after 5 pm on weekdays and after 12 pm on weekends, please page the following: - Clinical Cardiology patients on all floors: page [phone] - Other Cardiology patients on J5 and J6: page [phone] - Other Cardiology patients on J7 and J8: page [phone] CASE MANAGEM Observed: 09/18/2017 Status: COMPLETED Source: [place] 12:24 PM [facility] REPOSITORY HNO ID: [id number] Author: Linnea Christianson (Rn) GENIA Simmons Service: Case Management Author Type: Registered Nurse Type: Care Mgt Progress Note Filed: 09/18/2017 12:26 PM Note Text: CARE MANAGEMENT PROGRESS NOTE SERVICE DATE: 09/18/2017 SERVICE TIME: 12:24 pm LOS: 5 days Needs Prior to Discharge: To Be Determined Patient continues work-up and consults prior to intendend OHS for CABG< MAXZE, LAAL. No surgery date at this time. Unable to determine discharge needs at this time. CM will continue to follow medical course for discharge planning and needs post surgery. SIGNATURE: Lninea Simmons RN PATIENT NAME: Noman Stone DATE: September 18, 2017 TIME: 12:24 PM PAGER/CONTACT #: [phone] CBC Collected: 09/18/2017 Status: F Source: [place] 12:14 AM [facility] REPOSITORY TYPE CODE TESTS RESULT OUT OF REFERENCE UNITS RANGE LAB WBC 3.70-11.00 k/uL WBC 10.60 LAB RBC 4.20-6.00 m/uL RBC 4.61 LAB HGB 13.0-17.0 g/dL Hemoglobin 13.9 LAB HCT 39.0-51.0 % Hematocrit 41.5 LAB MCV 80.0-100.0 fL MCV 90.0 LAB MCH 26.0-34.0 pG MCH 30.2 LAB MCHC 30.5-36.0 g/dL MCHC 33.5 LAB RDWCV 11.5-15.0 % RDW-CV 13.3 LAB PLTCT 150-400 k/uL Platelet Count 168 LAB MPV 9.0-12.7 fL MPV 10.7 LAB ABSNUC <0.01 k/uL Absolute nRBC <0.01 Performed By: #### CBC, BMP #### [facility] [address], [place] [address] BASIC METABOLIC PANL Collected: 09/18/2017 Status: F Source: [place] 12:14 AM [facility] REPOSITORY TYPE CODE TESTS RESULT OUT OF REFERENCE UNITS RANGE LAB GLU 74-99 mg/dL High Glucose 235 Result Comment: The [place] [employer] (ADA) provides guidance for cutoff values for fasting glucose and random glucose. The ADA defines fasting as no caloric intake for at least 8 hours. Fas ting plasma glucose results between 100 to 125 mg/dL indicate increased risk for diabetes (prediabetes). Fasting plasma glucose results greater than or equal to 126 mg/dL meet the criteria for diagnosis of diabetes. In the absence of unequivocal hyperglycemia, results should be confirmed by repeat testing. In a patient with classic symptoms of hyperglycemia or hyperglycemic crisis, random plasma glucose results greater than or equal to 200 mg/dL meet the criteria for diagnosis of diabetes. Reference: Standards of Medical Care in Diabetes 2016, [place] [employer] Association. Diabetes Care. 2016.39(Suppl 1). LAB BUN 9-24 mg/dL BUN 17 LAB CRET 0.73-1.22 mg/dL Creatinine High 1.52 LAB NA 136-144 mmol/L Sodium 137 LAB K 3.7-5.1 mmol/L Potassium 4.4 LAB CL 97-105 mmol/L Chloride 100 LAB CO2 22-30 mmol/L CO2 28 LAB AGAP 9-18 mmol/L Anion Gap 9 LAB CA 8.5-10.2 mg/dL Calcium, Total 8.9 LAB GFRAA eGFR- Amer. 57 LAB GFRNAA . eGFR-All Other Races 47 Result Comment: eGFR (Estimated GFR) Units of measure: mL/min/1.73 meters squared eGFR is derived from the reexpressed MDRD Study equation using the following parameters: serum creatinine, age, gender and race. The creatinine assay has been calibrated to be traceable to IDMS. An eGFR <60 mL/min/1.73m2 for >3 months is consistent with chronic kidney disease. Refer to KDOQI guidelines for clinical interpretation. In patients with unstable renal function, e.g. those with acute kidney injury, the eGFR may not accurately reflect actual GFR. Performed By: #### CBC, BMP #### [facility] [address] [place] [id number] PTT,ANTICOAG THERAPY Collected: 09/18/2017 Status: F Source: [place] 12:12 AM [facility] REPOSITORY TYPE CODE TESTS RESULT OUT OF RANGE REFERENCE UNITS LAB APTT 23.0-32.4 sec High APTT 53.4 Result Comment: Unfractionated Heparin Therapeutic Ranges: Standard Heparin Nomogram: 53 to 78 seconds (anti-Xa level of 0.3 to 0.7 U/ml) Low Dose/ACS Nomogram: 49 to 67 seconds (anti-Xa level of 0.2 to 0.5 U/ml) Stroke Treatment Nomogram: 49 to 67 seconds (anti-Xa level of 0.2 to 0.5 U/ml) Note: The APTT therapeutic range has been determined for the current lot of laboratory APTT reagent in use throughout the [facility]. Performed By: #### PTTAC #### [facility] [address] [place], [place] [address] PTT,ANTICOAG THERAPY Collected: 09/17/2017 Status: F Source: [place] 5:12 PM [facility] REPOSITORY TYPE CODE TESTS RESULT OUT OF RANGE REFERENCE UNITS LAB APTT 23.0-32.4 sec High APTT 54.6 Result Comment: Unfractionated Heparin Therapeutic Ranges: Standard Heparin Nomogram: 53 to 78 seconds (anti-Xa level of 0.3 to 0.7 U/ml) Low Dose/ACS Nomogram: 49 to 67 seconds (anti-Xa level of 0.2 to 0.5 U/ml) Stroke Treatment Nomogram: 49 to 67 seconds (anti-Xa level of 0.2 to 0.5 U/ml) Note: The APTT therapeutic range has been determined for the current lot of laboratory APTT reagent in use throughout the [facility]. Specimen slightly hemolyzed. Sample checked for a clot. Performed By: #### PTTAC #### [facility] [address] [place], [place] [address] CONSULT Observed: 09/17/2017 Status: COMPLETED Source: [place] 1:51 PM [facility] REPOSITORY HNO ID: [id number] Author: Yu Ambrosio MD Service: Vascular Surgery Author Type: Physician Type: Consults Filed: 10/20/2017 8:15 PM Note Text: [facility] V[facility]ULAR [facility] INITIAL CONSULT Service Date: 09/17/2017 Admit Date: 09/13/2017 Service Time: 2:05 PM LOS: 4 Requesting Provider: Cardiology Vascular Physician: Yu Ambrosio MD Subjective Chief Complaint: Angina HPI: Noman Stone is a 61 year old White male referred by cardiology for an opinion regarding management of PVD prior to CABG. He has history of multiple percutaneous interventions in the lower extremities, including LLE stents in SFA x2 and atherectomy in the RLE, all years ago (outside hospital). No recent change in his complaints, has claudication (0.25-0.5 miles). Planned for CABG by cardiology, vascular surgery consulted to assess for wound healing after vein harvest. Location: lower Quality: chronic Severity: moderate Duration: >5 years PAST MEDICAL HISTORY Diagnosis Date - Acute renal failure (HCC) - CAD (coronary artery disease) - Diabetes mellitus ([facility]) 11/17/2010 - Essential hypertension, benign - GERD (gastroesophageal reflux disease) 11/17/2010 - H/O percutaneous transluminal coronary angioplasty - Hyperlipidemia - Low testosterone 12/12/2011 - Other and unspecified hyperlipidemia - PAD (peripheral artery disease) ([facility]) - Paroxysmal atrial fibrillation ([facility]) - Raynaud's syndrome - Shift work sleep disorder 05/03/2015 - Type 2 diabetes mellitus with stage 3 chronic kidney disease, with long-term current use of insulin ([facility]) 12/09/2015 - Type II or unspecified type diabetes mellitus with peripheral circulatory disorders, uncontrolled(250.72) 08/28/2013 PAST SURGICAL HISTORY Procedure Laterality Date - COLONOSCOP W/ OR W/O [facility] SPEC 04-12-10 - COLONOSCOPY W/BX 07-07-15 - EGD W/O [facility] SPECIMEN W/BX 07-07-15 - HEART CATHETERIZATION 2008 with stents - PAST SURGICAL HISTORY OF 10/03/10 bilat lower extremity arteriogram with angioplasty - PAST SURGICAL HISTORY OF 03/09/10 Bilat lower ext arteriogram left pop and sup fem artery angioplasty - PAST SURGICAL HISTORY OF 09/14/05 bilat arteriogram with left pop manometry - PLACE CATH SUBSUBSELECT ART,ABD/PEL 09/14/05 - REM LESION NEC,HAND,SCAL<0.5CM 01/29/10 Exc. right infra-auricular lesion - REM LESION NEC,HAND,SCAL<0.5CM 12/10/13 EXc. right foot lesion - REPAIR ING HERNIA,5+Y/O,REDUCIBL 1963 Hernia repair, inguinal - REVSC OPN/PRG FEM/POP W/ANGIOPLASTY UNI 05-11-10 RIGHT POP - REVSC OPN/PRG FEM/POP W/ANGIOPLASTY UNI 02/17/08 right fem with angioplasty,catheter placed right pop,right sfa,LLE ateriogram - REVSC OPN/PRG FEM/POP W/ANGIOPLASTY UNI 11/26/07 L fem angio with stenting and smart stent placed - REVSC OPN/PRG FEM/POP W/ANGIOPLASTY UNI 07-17-11 left leg - REVSC OPN/PRQ FEM/POP W/ATHRC/ANGIOP SM VSL 05-11-10 RIGHT SFA - REVSC OPN/PRQ TIB/NI W/ANGIOPLASTY UNI 05-11-10 RIGHT - REVSC OPN/PRQ TIB/NI W/ANGIOPLASTY UNI 01-09-14 - REVSC OPN/PRQ TIB/NI W/ATHRC/ANGIOP SM VSL 07-03-11 right leg - REVSC OPN/PRQ TIB/NI W/ATHRC/ANGIOP SM VSL 02-10-13 RIGHT FAMILY HISTORY Problem Relation Age of Onset - Heart Father - Hypertension Maternal Grandmother - GI Maternal Grandmother - Heart Paternal Grandfather - Cancer Mother lung - Cancer Sister Non hodgkins lymphoma - Diabetes Maternal Grandfather Social History Substance Use Topics - Smoking status: Never Smoker - Smokeless tobacco: Never Used - Alcohol use Yes Prescriptions Prior to Admission: TRULICITY 1.5 mg/0.5 mL pnij INJECT 1.5MG SUBCUTANEOUSLY ONCE EACH WEEK, DISCARD PEN AFTER Disp: 12 Pen Rfl: 3 losartan (COZAAR) 25 mg tablet Take 1 tablet by mouth once daily. Disp: 30 tablet Rfl: 11 isosorbide mononitrate ER (IMDUR) 60 mg 24 hr tablet Take 1 tablet by mouth once daily. Disp: 90 tablet Rfl: 3 carvedilol (COREG) 25 mg tablet Take 1 tablet by mouth twice daily with meals. Disp: 180 tablet Rfl: 3 insulin glargine (LANTUS U-100 INSULIN) 100 unit/mL injection Inject 30 Units subcutaneously daily at bedtime. Via Syringe Disp: 3 Vial Rfl: 3 atorvastatin (LIPITOR) 80 mg tablet Take 1 tablet by mouth once daily. Disp: 90 tablet Rfl: 3 HYDROcodone-acetaminophen (NORCO) 5-325 mg per tablet Take 1 tablet by mouth twice daily as needed for Pain for up to 30 days. Disp: 60 tablet Rfl: 0 HYDROcodone-acetaminophen (NORCO) 5-325 mg per tablet Take 1 tablet by mouth twice daily as needed for Pain for up to 30 days.Earliest Fill Date: 05/05/17 Disp: 60 tablet Rfl: 0 HYDROcodone-acetaminophen (NORCO) 5-325 mg per tablet Take 1 tablet by mouth twice daily as needed for Pain for up to 30 days.Earliest Fill Date: 06/02/17 Disp: 60 tablet Rfl: 0 amLODIPine (NORVASC) 10 mg tablet Take 1 tablet by mouth once daily. Disp: 30 tablet Rfl: 11 gemfibrozil (LOPID) 600 mg tablet Take 0.5 tablets by mouth twice daily. Disp: 90 tablet Rfl: 3 Hydrochlorothiazide 12.5 mg capsule TAKE 1 CAPSULE BY MOUTH ONCE DAILY Disp: 30 capsule Rfl: 3 clopidogrel (PLAVIX) 75 mg tablet Take 1 tablet by mouth once daily. Disp: 90 tablet Rfl: 3 Magnesium Oxide 500 mg cap Take 500 mg by mouth once daily. Disp: Rfl: 0 Insulin Syringe-Needle U-100 (BD INSULIN SYRINGE ULTRAFINE) 0.3 mL 31 gauge x 5/16 syrg 10 Units once daily. Disp: 100 Syringe Rfl: 11 nitroglycerin sublingual (NITROSTAT) 0.4 mg SL tablet Dissolve 1 tablet under the tongue as needed. DISSOLVE ON TONGUE FOR CHEST PAIN. IF NO PAIN RELIEF, CALL 911 Disp: 25 tablet Rfl: 6 blood sugar diagnostic (FREESTYLE LITE STRIPS) test strip TEST BLOOD SUGAR ONCE DAILY. DX: E11.65. Insulin: No Disp: 100 Strip Rfl: 3 Cholecalciferol, Vitamin D3, 1,000 unit cap Take 1 capsule by mouth once daily. (Patient taking differently: Take 5,000 Units by mouth once daily.) Disp: Rfl: 0 aspirin(ECOTRIN LOW STRENGTH 81 MG TAB) Take one(1) tablet daily. Disp: Rfl: 0 Current hospital medications: hydrocortisone topical cream 1% TOPICAL BID senna-docusate 8.6-50 mg 2 tablet (SENNA-S) 2 tablet ORAL BID polyethylene glycol 3350 17 g packet (MIRALAX, GLYCOLAX) 17 g ORAL DAILY atorvastatin 80 mg tab(s) (LIPITOR) 80 mg ORAL DAILY HYDROcodone 5 mg - acetaminophen 325 mg tablet (NORCO) 1 tablet ORAL q 6 H PRN aspirin, enteric coated 81 mg tab(s) (ASPIRIN, ENTERIC COATED) 81 mg ORAL DAILY dextrose 40 % 15 g 15 g ORAL PRN glucagon 1 mg injection (GLUCAGEN) 1 mg INTRAMUSCULAR PRN dextrose 50% in water 25 mL syringe 12.5 g INTRAVENOUS PRN acetaminophen 325-650 mg tab(s) (TYLENOL) 325-650 mg ORAL q 4 H PRN docusate sodium 100 mg cap(s) (COLACE) 100 mg ORAL BID PRN insulin lispro injection (rapid acting) (HumaLOG) SUBCUTANEOUS w MEALS insulin lispro injection (rapid acting) (HumaLOG) SUBCUTANEOUS AT BEDTIME insulin glargine 5 Units pen (long acting) (LANTUS SOLOSTAR, BASAGLAR KWIKPEN) 5 Units SUBCUTANEOUS AT BEDTIME heparin iv infusion (STROKE NOMOGRAM) 25,000 units in NaCl 0.45% 250 mL PREMIX 0-3,000 Units/hr INTRAVENOUS CONTINUOUS isosorbide mononitrate ER 60 mg tab(s) (IMDUR) 60 mg ORAL DAILY carvedilol 25 mg tab(s) (COREG) 25 mg ORAL BID w MEALS amLODIPine 10 mg tab(s) (NORVASC) 10 mg ORAL DAILY ALLERGIES Allergen Reactions - Adhesive Rash Redness to skin - Lisinopril Cough - Penicillins Unknown childhood COMPLETE REVIEW OF SYSTEMS CONSTITUTIONAL: No weight loss, malaise or fevers. HEENT: Negative for frequent or significant headaches, No changes in hearing or vision, no nose bleeds or other nasal problems. RESPIRATORY: Negative for cough, wheezing, or shortness of breath CARDIOVASCULAR: Positive for chest pain at rest GI: Negative for abdominal discomfort, blood in stools or black stools or change in bowel habits. : No history of dysuria, frequency, or incontinence and No difficulty urination, nocturia >1 times per night or hematuria. MUSCULOSKELETAL: Positive for claudication, see HPI ENDOCRINE: Negative for cold or heat intolerance, polyuria, polydipsia and goiter HEMATOLOGIC/LYMPHATIC: Negative for prolonged bleeding, bruising easily or swollen nodes. NEUROLOGIC: No history or headaches, syncope, paralysis, seizures or tremors. INTEGUMENTARY: Negative for lesions, rash, and itching. Objective PHYSICAL EXAM Physical Exam Performed Patient Vitals for the past 24 hrs: BP Temp Temp src Pulse Resp SpO2 Weight 09/17/17 1043 102/61 36.3 ?C (97.3 ?F) Oral 69 18 93 % - 09/17/17 0814 113/72 - - 63 - - - 09/17/17 0649 111/65 36.6 ?C (97.9 ?F) Oral 60 18 93 % - 09/17/17 0600 - - - - - - 104.9 kg (231 lb 4.2 oz) 09/17/17 0233 116/77 36.6 ?C (97.8 ?F) Oral 62 18 93 % - 09/16/17 2251 109/71 36.7 ?C (98 ?F) Oral 62 18 95 % - 09/16/17 1847 115/71 36.8 ?C (98.3 ?F) Oral 65 18 92 % - 09/16/17 1741 106/65 - - 66 - - - 09/16/17 1549 119/68 36.7 ?C (98 ?F) Oral 64 18 92 % - Intake/Output Summary (Last 24 hours) at 09/17/17 1813 Last data filed at 09/17/17 0900 Gross per 24 hour Intake 752 ml Output 1050 ml Net -298 ml CONSTITUTIONAL: Well developed and Well nourished NEUROLOGIC/PSYCHIATRIC: Oriented to time, place AND person and Alert HEENT: PERRLA and EOM's intact LUNGS: Clear HEART: S1, S2 normal ABDOMEN: Soft and Non-tender INTEGUMENTARY: Wound - No SURGICAL SITES: None MUSCULOSKELETAL: No joint deformities Pulses/Signals: Carotid Brachial Radial Ulnar Femoral Popliteal Dorsalis Pedis Posterior Tibial Peroneal Right Palpable +2 Palpable +2 Palpable +2 Palpable +2 Palpable +2 Biphasic Signal Palpable +1 Biphasic Signal Biphasic Signal Left Palpable +2 Palpable +2 Palpable +2 Palpable +2 Palpable +2 Biphasic Signal Biphasic Signal Palpable +1 Biphasic Signal Does the patient have critical limb ischemia, rest pain, tissue loss or gangrene?: No DATA: Laboratory: Recent Labs 09/17/17 0405 09/16/17 0531 09/15/17 0639 WBC 9.98 9.44 8.75 HB 14.1 14.8 14.4 HCT 43.0 45.1 43.2 PLT 189 180 190 Recent Labs 09/17/17 0405 09/16/17 0803 NA 136 137 K 4.0 4.0 BUN 17 17 CREAT 1.49* 1.49* GLUC 171* 131* Recent Labs 09/17/17 0405 09/16/17 0531 09/15/17 2145 APTT 72.3* 60.4* 53.3* Radiology: NIKKI 09/13/17 RIGHT SIDE ? Resting right ankle brachial index: 1.04 ? Normal ankle brachial index at rest in the right leg. ? Right ankle: Normal at rest. ? LEFT SIDE ? Resting left ankle brachial index: 0.89 ? Abnormal ankle brachial index at rest diagnostic of peripheral artery disease. ? Left ankle: Mild disease at rest. I have personally reviewed the following images/data: PVR Impression/Recommendations Impression: Stable PVD with normal/near-normal NIKKI. No acute symptoms. At risk for wound complications after vein harvesting, which was discussed with the patient. However, no role for any intervention prior to CABG. Plan: -Can proceed with CABG per Cardiology/Cardiac Surgery -Formal PVRs to assess level of disease (do not need to postpone surgery for this). Seen with Dr. Ambrosoi Problem Peripheral arterial disease History : POA S/p multiple interventions Assessment: Pt reports he can not use IPCs due to poor circulartion peripheral pulses intact cont medical tx ABIs: Rt normal at rest. Lt mild disease at rest Plan: On heparin drip due to unstable angina. SIGNATURE: Dale Graf MD PATIENT NAME: Noman Stone DATE: September 17, 2017 TIME: 1:52 PM PAGER/CONTACT #: [phone] [facility] STAFF PHYSICIAN NOTE OF PERSONAL INVOLVEMENT IN CARE IMPRESSION: Patient is a 61 year old male seen on 09/17/17 with 1/2 mile claudication. His NIKKI/PVR are adequate. PLAN: No acute surgical intervention needed for claudication. Continue exercise as needed. Continue antiplatelet therapy. Continue statin therapy. I have reviewed the documentation obtained and documented by the Resident and have reviewed and updated the problem list as appropriate. I have personally performed a face to face assessment of the patient and have personally participated in the mccullough components. I have discussed the case and management of the patient's care. STAFF PHYSICIAN: Yu Ambrosio MD DATE OF SERVICE: September 19, 2017 TIME OF SERVICE: 7:20 AM CONSULT PROG Observed: 09/17/2017 Status: COMPLETED Source: [place] 1:16 PM [facility] [place] REPOSITORY HNO ID: [id number] Author: Shira Pérez Service: Cardiac Surgery Author Type: Nurse Practitioner Type: Consult Progress Note Filed: 09/17/2017 1:21 PM Note Text: HEART [facility] VASCULAR PEETZ PROGRESS NOTE Noman Stone [id number] CTS staff Dr. Abel Torrez Intended surgery: CABG MAZE LAAL (has well documented PAF with slow HR. Preop testing in progress- needs vascular surgery consult, due to claudication and severe PVD- concern about wound healing if SV is harvested. Patient is ambulatory, family in the room. Denies chest pain. Questions answered. I have updated Dr. Torrez and CTS wire inspector. Last dose of Plavix 09/11 ASSESSMENT AND PLAN: Problem Preop Testing [facility] VASCULAR PEETZ PRE-OP CHECKLIST Surgeon: Abel Torrez M.D. Informed Consent Completed: No STS Score: CABG MAZE LAAL (documented PAF) CAD: Yes - CAD on Problem List: Yes Is intended procedure a CABG: Yes - is a beta nico ordered? Yes H AND P completed: Yes PA/LAT: Completed CT: Completed MRI: N/A LE US: Completed Cath: Yes - reviewed: Yes Echo:Completed EKG: Completed EF %: mnormal PI's: Completed good left PI: > 67%. Carotid: Completed Mapping: Completed Dental: N/A PFT's: N/A CBC, Coags, BMP, Mg, Phos Recent Labs 09/17/17 0405 09/16/17 0803 09/16/17 0531 09/15/17 2145 09/15/17 0639 WBC 9.98 -- 9.44 -- -- 8.75 HB 14.1 -- 14.8 -- -- 14.4 HCT 43.0 -- 45.1 -- -- 43.2 PLT 189 -- 180 -- -- 190 APTT 72.3* -- 60.4* 53.3* < > 72.0* NA 136 137 -- -- -- -- K 4.0 4.0 -- -- -- -- CHLOR 95* 99 -- -- -- -- CO2 25 26 -- -- -- -- BUN 17 17 -- -- -- -- CREAT 1.49* 1.49* -- -- -- -- GLUC 171* 131* -- -- -- -- CA 9.5 9.4 -- -- -- -- < > = values in this interval not displayed. UA: Normal HCG:N/A ABO/ABO Confirmed: Yes Blood ordered: Yes SA Swab: Yes - results: Negative Last Dose of Anticoagulation: Plavix and Heparin Op Note: No Pacemaker Check: No Implants: no Consults: vascular surgery, Endocrine DM: Yes Cardiac Surgical prep: Yes SIGNATURE: Shira Pérez RN APRN.CNP CHECKED BY: DATE of SERVICE: 09/17/2017 TIME of SERVICE: 1:13 PM [] SIGNATURE: Shira Pérez RN APRN.ASSISTANT STRENGTH COACH PAGER: [phone] DATE of SERVICE: 09/17/2017 TIME of SERVICE: 1:21 PM PROGRESS Observed: 09/17/2017 Status: COMPLETED Source: [place] 12:24 PM [facility] [place] REPOSITORY [facility] ID: [id number] Author: [place] Pa Service: Cardiovascular Medicine Author Type: Physician Medical Illustrator Type: Progress Notes Filed: 09/17/2017 12:33 PM Note Text: [facility] CARDIOVASCULAR MEDICINE PROGRESS NOTE (Template ID [id number]) Noman Stone [id number] PRIMARY SERVICE: Hvi Card Intervention HOSPITAL DAY: # 4 INTERVAL HISTORY CTS work up continues PHYSICAL EXAM BP 102/61 Pulse 69 Temp 36.3 ?C (97.3 ?F) (Oral) Resp 18 Ht 172.7 cm (5' 8) Wt 104.9 kg (231 lb 4.2 oz) SpO2 93% BMI 35.16 kg/m? Intake/Output Summary (Last 24 hours) at 09/17/17 1224 Last data filed at 09/17/17 0900 Gross per 24 hour Intake 1232 ml Output 1350 ml Net -118 ml General Appearance: Well developed and No distress HEENT: EOM's intact and no JVD Lungs: Clear Heart: Regular rate AND rhythm, S1, S2 normal, Vascular: Pulses - intact and no edema noted Abdomen: Soft, Round, Non-tender and Bowel sounds present Skin: Warm, Dry and rt groin puncture site is healing well. Musculoskeletal: No deformities Neurologic/Psychiatric: Oriented to time, place AND person MEDICATIONS Current hospital medications: hydrocortisone topical cream 1% TOPICAL BID senna-docusate 8.6-50 mg 2 tablet (SENNA-S) 2 tablet ORAL BID polyethylene glycol 3350 17 g packet (MIRALAX, GLYCOLAX) 17 g ORAL DAILY atorvastatin 80 mg tab(s) (LIPITOR) 80 mg ORAL DAILY HYDROcodone 5 mg - acetaminophen 325 mg tablet (NORCO) 1 tablet ORAL q 6 H PRN aspirin, enteric coated 81 mg tab(s) (ASPIRIN, ENTERIC COATED) 81 mg ORAL DAILY dextrose 40 % 15 g 15 g ORAL PRN glucagon 1 mg injection (GLUCAGEN) 1 mg INTRAMUSCULAR PRN dextrose 50% in water 25 mL syringe 12.5 g INTRAVENOUS PRN acetaminophen 325-650 mg tab(s) (TYLENOL) 325-650 mg ORAL q 4 H PRN docusate sodium 100 mg cap(s) (COLACE) 100 mg ORAL BID PRN insulin lispro injection (rapid acting) (HumaLOG) SUBCUTANEOUS w MEALS insulin lispro injection (rapid acting) (HumaLOG) SUBCUTANEOUS AT BEDTIME insulin glargine 5 Units pen (long acting) (LANTUS SOLOSTAR, BASAGLAR KWIKPEN) 5 Units SUBCUTANEOUS AT BEDTIME heparin iv infusion (STROKE NOMOGRAM) 25,000 units in NaCl 0.45% 250 mL PREMIX 0-3,000 Units/hr INTRAVENOUS CONTINUOUS isosorbide mononitrate ER 60 mg tab(s) (IMDUR) 60 mg ORAL DAILY carvedilol 25 mg tab(s) (COREG) 25 mg ORAL BID w MEALS amLODIPine 10 mg tab(s) (NORVASC) 10 mg ORAL DAILY DATA Recent Labs 09/17/17 0405 09/16/17 0531 09/15/17 0639 WBC 9.98 9.44 8.75 HB 14.1 14.8 14.4 HCT 43.0 45.1 43.2 PLT 189 180 190 Recent Labs 09/17/17 0405 09/16/17 0803 NA 136 137 K 4.0 4.0 CO2 25 26 BUN 17 17 CREAT 1.49* 1.49* GLUC 171* 131* IMAGING Reviewed ASSESSMENT AND PLAN 61M with CAD (prior PCI to RCA, rPDA and LAD), PAD with prior LLE stent, HNT, HLD, DMII, ARNOLDO who presents with severe 3v CAD here for consideration of CABG. He describes slowly progressive angina over the last several months. Despite presenting with AF with slow ventricular response, he spontaneously cardioverted to sinus rhythm with normal HR (70s). Reasonable to consider CABG with MAZE and possible SHAD exclusion. Plan: - admit to telemetry - echo pending - continue aspirin (hold P2Y12), statin. Continue BB - LHC uploaded in [employer] for review. Seems a reasonable candidate for CABG with MAZE; CTS consult. - will continue on heparin gtt for AF (currently sinus rhythm) Problem Cad (Coronary Artery Disease) History: S/p ELZA to rRCA 2.5x28mm Promus Premier EES on 02/11/15 c/b dissection during cath not amenable to corrective intervention. 09/11/2016 Developed palpitations, CE negative, Abnormal stress test. LHC at [facility] showed triple vessel disease. Transferred to [facility] for CABG eval. Last dose of Plavix 09/11/2016 Assessment: CP free OSH LHC uploaded into [employer]. Plan: ASA, IV heparin, Statin, BB, Imdur. Consulted CTS, Dr Zapata reviewing information, surgery date pending. Peripheral arterial disease History: POA S/p multiple interventions Assessment: Pt reports he can not use IPCs due to poor circulartion peripheral pulses intact cont medical tx ABIs: Rt normal at rest. Lt mild disease at rest Plan: On heparin drip due to unstable angina. 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 Range 04/01/2017 00:00 Hemoglobin A1C Latest Ref Range: 4.8 - 5.9 % 7.9 (A) Plan: recheck HGA1C, pt may take his own med Trulicity on Sunday. SS insulin.. Htn (Hypertension) History: Home meds: Imdur 60mg, losartan 25mg, carvedilol 25mg BID, Norvasc 10mg., HCTZA 12.5mg Assessment: BP controlled. 09/17/2017 Held losartan due to worsening renal function Plan: Continue home meds except for losartan and HCTZ, monitor need to titrate meds.. Renal Insufficiency History: POA, baseline creat is 1.3 Assessment: 09/16/17 increase in creat to 1.49 09/17/2017 creat 1.49 Plan: DC losartan, get renal US. Monitor Creat Case to be discussed with staff [place] Pa PA-C Pager [phone] (please see below for after hours communication) 09/17/2017 12:24 PM For communication after 5 pm on weekdays and after 12 pm on weekends, please page the following: - Clinical Cardiology patients on all floors: page [phone] - Other Cardiology patients on J5 and J6: page [phone] - Other Cardiology patients on J7 and J8: page [phone] US KIDNEY/BLADDER Observed: 09/17/2017 Status: F Source: [place] 10:11 AM [facility] REPOSITORY * * *Final Report* * * DATE OF EXAM: Sep 17 2017 10:11AM [facility] [place] [facility] - US KIDNEY/BLADDER / PROCEDURE REASON: Renal mass, renal insufficiency * * * * Physician Interpretation * * * * EXAMINATION: RENAL ULTRASOUND CLINICAL HISTORY: Evaluate for hydronephrosis in patient with renal insufficiency TECHNIQUE: Sonography of the kidneys and urinary bladder was performed. Images were obtained and stored in a permanent archive. MQ: UR_1 COMPARISON: None RESULT: Right Kidney: -Renal length: 11.5 cm -Parenchyma: Normal parenchymal echogenicity. Normal parenchymal thickness. -Collecting system: No hydronephrosis. -Calculus: No echogenic, shadowing calculus. -Lesion: 1.2 cm lower pole hypoechoic lesion, likely a cyst. Left Kidney: -Renal length: 11.6 cm -Parenchyma: Normal parenchymal echogenicity. Normal parenchymal thickness. -Collecting system: No hydronephrosis. -Calculus: No echogenic, shadowing calculus. -Lesion: 1.6 cm interpolar cyst Bladder: Normal sonographic appearance. IMPRESSION: NO HYDRONEPHROSIS. 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: [facility] Transcribe Date/Time: Sep 17 2017 10:27A Dictated by : EDGARDO PYLE MD This examination was interpreted and the report reviewed and electronically signed by: EDGARDO PYLE MD on Sep 17 2017 10:30AM EST [id number] CBC Collected: 09/17/2017 Status: F Source: [place] 4:05 AM [facility] REPOSITORY TYPE CODE TESTS RESULT OUT OF REFERENCE UNITS RANGE LAB WBC 3.70-11.00 k/uL WBC 9.98 LAB RBC 4.20-6.00 m/uL RBC 4.82 LAB HGB 13.0-17.0 g/dL Hemoglobin 14.1 LAB HCT 39.0-51.0 % Hematocrit 43.0 LAB MCV 80.0-100.0 fL MCV 89.2 LAB MCH 26.0-34.0 pG MCH 29.3 LAB MCHC 30.5-36.0 g/dL MCHC 32.8 LAB RDWCV 11.5-15.0 % RDW-CV 13.4 LAB PLTCT 150-400 k/uL Platelet Count 189 LAB MPV 9.0-12.7 fL MPV 10.5 LAB ABSNUC <0.01 k/uL Absolute nRBC <0.01 Performed By: #### CBC, PTT, BMP #### [facility] [address] [place], [place] [address] APTT Collected: 09/17/2017 Status: F Source: [place] 4:05 [facility] REPOSITORY TYPE CODE TESTS RESULT OUT OF RANGE REFERENCE UNITS LAB APTT 23.0-32.4 sec High APTT 72.3 Result Comment: Unfractionated Heparin Therapeutic Ranges: Standard Heparin Nomogram: 53 to 78 seconds (anti-Xa level of 0.3 to 0.7 U/ml) Low Dose/ACS Nomogram: 49 to 67 seconds (anti-Xa level of 0.2 to 0.5 U/ml) Stroke Treatment Nomogram: 49 to 67 seconds (anti-Xa level of 0.2 to 0.5 U/ml) Note: The APTT therapeutic range has been determined for the current lot of laboratory APTT reagent in use throughout the [facility]. Performed By: #### CBC, PTT, BMP #### [facility] [address] [place], [place] [address] BASIC METABOLIC PANL Collected: 09/17/2017 Status: F Source: [place] 4:05 [facility] REPOSITORY TYPE CODE TESTS RESULT OUT OF REFERENCE UNITS RANGE LAB GLU 74-99 mg/dL High Glucose 171 Result Comment: The [place] [employer] (ADA) provides guidance for cutoff values for fasting glucose and random glucose. The ADA defines fasting as no caloric intake for at least 8 hours. Fas ting plasma glucose results between 100 to 125 mg/dL indicate increased risk for diabetes (prediabetes). Fasting plasma glucose results greater than or equal to 126 mg/dL meet the criteria for diagnosis of diabetes. In the absence of unequivocal hyperglycemia, results should be confirmed by repeat testing. In a patient with classic symptoms of hyperglycemia or hyperglycemic crisis, random plasma glucose results greater than or equal to 200 mg/dL meet the criteria for diagnosis of diabetes. Reference: Standards of Medical Care in Diabetes 2016, [place] [employer]. Diabetes Care. 2016.39(Suppl 1). LAB BUN 9-24 mg/dL BUN 17 LAB CRET 0.73-1.22 mg/dL Creatinine High 1.49 LAB NA 136-144 mmol/L Sodium 136 LAB K 3.7-5.1 mmol/L Potassium 4.0 LAB CL 97-105 mmol/L Low Chloride 95 LAB CO2 22-30 mmol/L CO2 25 LAB AGAP 9-18 mmol/L Anion Gap 16 LAB CA 8.5-10.2 mg/dL Calcium, Total 9.5 LAB GFRAA eGFR- Amer. 58 LAB GFRNAA . eGFR-All Other Races 48 Result Comment: eGFR (Estimated GFR) Units of measure: mL/min/1.73 meters squared eGFR is derived from the reexpressed MDRD Study equation using the following parameters: serum creatinine, age, gender and race. The creatinine assay has been calibrated to be traceable to IDMS. An eGFR <60 mL/min/1.73m2 for >3 months is consistent with chronic kidney disease. Refer to KDOQI guidelines for clinical interpretation. In patients with unstable renal function, e.g. those with acute kidney injury, the eGFR may not accurately reflect actual GFR. Performed By: #### CBC, PTT, BMP #### [facility] [address] [place] [id number] BASIC METABOLIC PANL Collected: 09/16/2017 Status: F Source: [place] 8:03 AM [facility] REPOSITORY TYPE CODE TESTS RESULT OUT OF REFERENCE UNITS RANGE LAB GLU 74-99 mg/dL High Glucose 131 Result Comment: The [place] [employer] (ADA) provides guidance for cutoff values for fasting glucose and random glucose. The ADA defines fasting as no caloric intake for at least 8 hours. Fas ting plasma glucose results between 100 to 125 mg/dL indicate increased risk for diabetes (prediabetes). Fasting plasma glucose results greater than or equal to 126 mg/dL meet the criteria for diagnosis of diabetes. In the absence of unequivocal hyperglycemia, results should be confirmed by repeat testing. In a patient with classic symptoms of hyperglycemia or hyperglycemic crisis, random plasma glucose results greater than or equal to 200 mg/dL meet the criteria for diagnosis of diabetes. Reference: Standards of Medical Care in Diabetes 2016, [place] [employer]. Diabetes Care. 2016.39(Suppl 1). LAB BUN 9-24 mg/dL BUN 17 LAB CRET 0.73-1.22 mg/dL Creatinine High 1.49 LAB NA 136-144 mmol/L Sodium 137 LAB K 3.7-5.1 mmol/L Potassium 4.0 LAB CL 97-105 mmol/L Chloride 99 LAB CO2 22-30 mmol/L CO2 26 LAB AGAP 9-18 mmol/L Anion Gap 12 LAB CA 8.5-10.2 mg/dL Calcium, Total 9.4 LAB GFRAA eGFR- Amer. 58 LAB GFRNAA . eGFR-All Other Races 48 Result Comment: eGFR (Estimated GFR) Units of measure: mL/min/1.73 meters squared eGFR is derived from the reexpressed MDRD Study equation using the following parameters: serum creatinine, age, gender and race. The creatinine assay has been calibrated to be traceable to IDMS. An eGFR <60 mL/min/1.73m2 for >3 months is consistent with chronic kidney disease. Refer to KDOQI guidelines for clinical interpretation. In patients with unstable renal function, e.g. those with acute kidney injury, the eGFR may not accurately reflect actual GFR. Performed By: #### BMP #### [facility] [address] [place], [place] [address] PROGRESS Observed: 09/16/2017 Status: COMPLETED Source: [place] 6:31 AM [facility] REPOSITORY O ID: [id number] Author: Keith Kovacs DO Service: Cardiovascular Medicine Author Type: Physician Type: Progress Notes Filed: 09/16/2017 12:31 PM Note Text: [facility] PROGRESS NOTE Noman Stone [id number] PRIMARY SERVICE: Intervention HOSPITAL DAY: # 3 INTERVAL HISTORY: No acute complaints HDS afebrile SCr a little bit elevated from baseline PHYSICAL EXAM: BP 119/75 Pulse 65 Temp 36.5 ?C (97.7 ?F) (Oral) Resp 16 Ht 172.7 cm (5' 8) Wt 104.8 kg (231 lb 0.7 oz) SpO2 97% BMI 35.13 kg/m? Intake/Output Summary (Last 24 hours) at 09/16/17 0633 Last data filed at 09/16/17 0600 Gross per 24 hour Intake 1000 ml Output 2300 ml Net -1300 ml General: NAD. HEENT: EOMI. No JVP Lungs: BCAL Heart: S1nl, S2nl.? no murmur. Abdomen: Soft, non-tender. Extremities: no peripheral edema bilaterally. Neuro: MAEW. Psych: Cooperative. MEDICATIONS: Current hospital medications: hydrocortisone topical cream 1% TOPICAL BID senna-docusate 8.6-50 mg 2 tablet (SENNA-S) 2 tablet ORAL BID polyethylene glycol 3350 17 g packet (MIRALAX, GLYCOLAX) 17 g ORAL DAILY atorvastatin 80 mg tab(s) (LIPITOR) 80 mg ORAL DAILY losartan 25 mg tab(s) (COZAAR) 25 mg ORAL DAILY HYDROcodone 5 mg - acetaminophen 325 mg tablet (NORCO) 1 tablet ORAL q 6 H PRN aspirin, enteric coated 81 mg tab(s) (ASPIRIN, ENTERIC COATED) 81 mg ORAL DAILY dextrose 40 % 15 g 15 g ORAL PRN glucagon 1 mg injection (GLUCAGEN) 1 mg INTRAMUSCULAR PRN dextrose 50% in water 25 mL syringe 12.5 g INTRAVENOUS PRN acetaminophen 325-650 mg tab(s) (TYLENOL) 325-650 mg ORAL q 4 H PRN docusate sodium 100 mg cap(s) (COLACE) 100 mg ORAL BID PRN insulin lispro injection (rapid acting) (HumaLOG) SUBCUTANEOUS w MEALS insulin lispro injection (rapid acting) (HumaLOG) SUBCUTANEOUS AT BEDTIME insulin glargine 5 Units pen (long acting) (LANTUS SOLOSTAR, BASAGLAR KWIKPEN) 5 Units SUBCUTANEOUS AT BEDTIME heparin iv infusion (STROKE NOMOGRAM) 25,000 units in NaCl 0.45% 250 mL PREMIX 0-3,000 Units/hr INTRAVENOUS CONTINUOUS isosorbide mononitrate ER 60 mg tab(s) (IMDUR) 60 mg ORAL DAILY carvedilol 25 mg tab(s) (COREG) 25 mg ORAL BID w MEALS amLODIPine 10 mg tab(s) (NORVASC) 10 mg ORAL DAILY ASSESSMENT: 61M with CAD (prior PCI to RCA, rPDA and LAD), PAD with prior LLE stent, HNT, HLD, DMII, ARNOLDO who presents with severe 3v CAD here for consideration of CABG. He describes slowly progressive angina over the last several months. Despite presenting with AF with slow ventricular response, he spontaneously cardioverted to sinus rhythm with normal HR (70s). He is being considered for CABG with MAZE and possible SHAD exclusion. PLAN: Active Hospital Problems Diagnosis - CAD (coronary artery disease) History: S/p ELZA to rRCA 2.5x28mm Promus Premier EES on 02/11/15 c/b dissection during cath not amenable to corrective intervention. 09/11/2016 Developed palpitations, CE negative, Abnormal stress test. LHC at [facility] showed triple vessel disease. Transferred to [facility] for CABG eval. Last dose of Plavix 09/11/2016 Assessment: CP free OSH LHC uploaded into [employer]. Plan: ASA, IV heparin, Statin, BB, Imdur. CTS recs . - Peripheral arterial disease History: POA S/p multiple interventions, managed by vascular surgeon at OSH Bilateral claudication ABIs abnormal on the L side at rest Has never had chronic ulcers etc. Re concern for poor wound healing Plan: CTS vascular surgery consult? Call Sunday if CTS desires. 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 Range 04/01/2017 00:00 Hemoglobin A1C Latest Ref Range: 4.8 - 5.9 % 7.9 (A) Plan: SS insulin. - HTN (hypertension) History: Home meds: Imdur 60mg, losartan 25mg, carvedilol 25mg BID, Norvasc 10mg., HCTZA 12.5mg Plan: Continue home meds except for HCTZ, monitor need to titrate meds. - Hyperlipidemia History: POA: Home med: atorvastatin. Assessment: no current cholesterol results Plan: Continue Lipitor 80mg, - Obesity, Class II, BMI 35-39.9 History: POA Assessment: Body mass index is 36.36 kg/m?. Plan: discussed wt loss. - Chronic low back pain History: present SHAKER OUT Assessment: Takes [place] Pt concerned post op laying flat will have a lot of pain Plan: Continue [place] - Chronic Kidney disease Likely 2/2 to Diabetes/HTN --monitor kidney function, if function continues to decline consider Vu work up and holding ARB Case to be discussed with staff Jakob Eric MD, PhD Cardiovascular Medicine Fellow Pager [phone] (please see below for after hours communication) September 16, 2017 ? Addendum: Pt admitted by transfer with unstable angina s/p LHC at an outside faciolity on 09/10/17. LHC revealed severe 3 VD. Being evaluated for CABG in the near future. Pt understands the plan. Keith Kovacs DO September 16, 2017 12:30 PM For communication after 5 pm on weekdays and after 12 pm on weekends, please page the following: - Clinical Cardiology patients on all floors: page [phone] - Other Cardiology patients on J5 and J6: page [phone] - Other Cardiology patients on J7 and J8: page [phone] CBC Collected: 09/16/2017 Status: F Source: [place] 5:31 AM [facility] REPOSITORY TYPE CODE TESTS RESULT OUT OF REFERENCE UNITS RANGE LAB WBC 3.70-11.00 k/uL WBC 9.44 LAB RBC 4.20-6.00 m/uL RBC 5.04 LAB HGB 13.0-17.0 g/dL Hemoglobin 14.8 LAB HCT 39.0-51.0 % Hematocrit 45.1 LAB MCV 80.0-100.0 fL MCV 89.5 LAB MCH 26.0-34.0 pG MCH 29.4 LAB MCHC 30.5-36.0 g/dL MCHC 32.8 LAB RDWCV 11.5-15.0 % RDW-CV 13.3 LAB PLTCT 150-400 k/uL Platelet Count 180 LAB MPV 9.0-12.7 fL MPV 10.2 LAB ABSNUC <0.01 k/uL Absolute nRBC <0.01 Performed By: #### CBC #### [facility] [address] [place], [place] [address] PTT,ANTICOAG THERAPY Collected: 09/16/2017 Status: F Source: [place] 5:31 AM [facility] REPOSITORY TYPE CODE TESTS RESULT OUT OF RANGE REFERENCE UNITS LAB APTT 23.0-32.4 sec High APTT 60.4 Result Comment: Unfractionated Heparin Therapeutic Ranges: Standard Heparin Nomogram: 53 to 78 seconds (anti-Xa level of 0.3 to 0.7 U/ml) Low Dose/ACS Nomogram: 49 to 67 seconds (anti-Xa level of 0.2 to 0.5 U/ml) Stroke Treatment Nomogram: 49 to 67 seconds (anti-Xa level of 0.2 to 0.5 U/ml) Note: The APTT therapeutic range has been determined for the current lot of laboratory APTT reagent in use throughout the [facility]. Performed By: #### PTTAC #### [facility] [address] [place] [id number] PTT,ANTICOAG THERAPY Collected: 09/15/2017 Status: F Source: [place] 9:45 PM [facility] REPOSITORY TYPE CODE TESTS RESULT OUT OF RANGE REFERENCE UNITS LAB APTT 23.0-32.4 sec High APTT 53.3 Result Comment: Unfractionated Heparin Therapeutic Ranges: Standard Heparin Nomogram: 53 to 78 seconds (anti-Xa level of 0.3 to 0.7 U/ml) Low Dose/ACS Nomogram: 49 to 67 seconds (anti-Xa level of 0.2 to 0.5 U/ml) Stroke Treatment Nomogram: 49 to 67 seconds (anti-Xa level of 0.2 to 0.5 U/ml) Note: The APTT therapeutic range has been determined for the current lot of laboratory APTT reagent in use throughout the [facility]. Performed By: #### PTTAC #### [facility] [address] [place], [place] [address] PTT,ANTICOAG THERAPY Collected: 09/15/2017 Status: F Source: [place] 2:15 PM [facility] REPOSITORY TYPE CODE TESTS RESULT OUT OF RANGE REFERENCE UNITS LAB APTT 23.0-32.4 sec High APTT 45.0 Result Comment: Unfractionated Heparin Therapeutic Ranges: Standard Heparin Nomogram: 53 to 78 seconds (anti-Xa level of 0.3 to 0.7 U/ml) Low Dose/ACS Nomogram: 49 to 67 seconds (anti-Xa level of 0.2 to 0.5 U/ml) Stroke Treatment Nomogram: 49 to 67 seconds (anti-Xa level of 0.2 to 0.5 U/ml) Note: The APTT therapeutic range has been determined for the current lot of laboratory APTT reagent in use throughout the [facility]. Performed By: #### PTTAC #### [facility] [address] [place], [place] [id number] CBC Collected: 09/15/2017 Status: F Source: [place] 6:39 AM [facility] REPOSITORY TYPE CODE TESTS RESULT OUT OF REFERENCE UNITS RANGE LAB WBC 3.70-11.00 k/uL WBC 8.75 LAB RBC 4.20-6.00 m/uL RBC 4.82 LAB HGB 13.0-17.0 g/dL Hemoglobin 14.4 LAB HCT 39.0-51.0 % Hematocrit 43.2 LAB MCV 80.0-100.0 fL MCV 89.6 LAB MCH 26.0-34.0 pG MCH 29.9 LAB MCHC 30.5-36.0 g/dL MCHC 33.3 LAB RDWCV 11.5-15.0 % RDW-CV 13.3 LAB PLTCT 150-400 k/uL Platelet Count 190 LAB MPV 9.0-12.7 fL MPV 10.3 LAB ABSNUC <0.01 k/uL Absolute nRBC <0.01 Performed By: #### CBC, PTTAC, HBA1C #### [facility] [address] [place], [place] [id number] PTT,ANTICOAG THERAPY Collected: 09/15/2017 Status: F Source: [place] 6:39 AM [facility] REPOSITORY TYPE CODE TESTS RESULT OUT OF RANGE REFERENCE UNITS LAB APTT 23.0-32.4 sec High APTT 72.0 Result Comment: Unfractionated Heparin Therapeutic Ranges: Standard Heparin Nomogram: 53 to 78 seconds (anti-Xa level of 0.3 to 0.7 U/ml) Low Dose/ACS Nomogram: 49 to 67 seconds (anti-Xa level of 0.2 to 0.5 U/ml) Stroke Treatment Nomogram: 49 to 67 seconds (anti-Xa level of 0.2 to 0.5 U/ml) Note: The APTT therapeutic range has been determined for the current lot of laboratory APTT reagent in use throughout the [facility]. Performed By: #### CBC, PTTAC, HBA1C #### [facility] [address] [place], [place] [address] HEMOGLOBIN A1C Collected: 09/15/2017 Status: F Source: [place] 6:39 AM [facility] REPOSITORY TYPE CODE TESTS RESULT OUT OF REFERENCE UNITS RANGE LAB HGBA1C 4.3-5.6 % High Hemoglobin A1c 8.8 LAB HBA0 mg/dL Est. Average Glucose 206 Result Comment: eAG: (Estimated average glucose) is a calculated value from HgbA1c and is parts sales representative of the average blood glucose level in the last 2-3 month period. Performed By: #### CBC, PTTAC, HBA1C #### [facility] [address] [place], [place] [address] PROGRESS Observed: 09/14/2017 Status: COMPLETED Source: [place] 9:07 PM [facility] REPOSITORY HNO ID: [id number] Author: Keith Kovacs DO Service: Cardiovascular Medicine Author Type: Physician Type: Progress Notes Filed: 09/15/2017 12:00 PM Note Text: [facility] PROGRESS NOTE Noman Stone [id number] PRIMARY SERVICE: Intervention HOSPITAL DAY: # 1 INTERVAL HISTORY: No acute complaints HDS afebrile PHYSICAL EXAM: BP 113/66 Pulse 68 Temp 37.1 ?C (98.8 ?F) (Oral) Resp 18 Ht 172.7 cm (5' 8) Wt 108.5 kg (239 lb 1.6 oz) SpO2 94% BMI 36.36 kg/m? Intake/Output Summary (Last 24 hours) at 09/14/172106 Last data filed at 09/14/17 191 Gross per 24 hour Intake 820 ml Output 1525 ml Net -705 ml General: NAD. HEENT: EOMI. No JVP Lungs: BCAL Heart: S1nl, S2nl.? no murmur. Abdomen: Soft, non-tender. Extremities: no peripheral edema bilaterally. Neuro: MAEW. Psych: Cooperative. MEDICATIONS: Current hospital medications: atorvastatin 80 mg tab(s) (LIPITOR) 80 mg ORAL DAILY losartan 25 mg tab(s) (COZAAR) 25 mg ORAL DAILY HYDROcodone 5 mg - acetaminophen 325 mg tablet (NORCO) 1 tablet ORAL q 6 H PRN aspirin, enteric coated 81 mg tab(s) (ASPIRIN, ENTERIC COATED) 81 mg ORAL DAILY dextrose 40 % 15 g 15 g ORAL PRN glucagon 1 mg injection (GLUCAGEN) 1 mg INTRAMUSCULAR PRN dextrose 50% in water 25 mL syringe 12.5 g INTRAVENOUS PRN acetaminophen 325-650 mg tab(s) (TYLENOL) 325-650 mg ORAL q 4 H PRN docusate sodium 100 mg cap(s) (COLACE) 100 mg ORAL BID PRN insulin lispro injection (rapid acting) (HumaLOG) SUBCUTANEOUS w MEALS insulin lispro injection (rapid acting) (HumaLOG) SUBCUTANEOUS AT BEDTIME insulin glargine 5 Units pen (long acting) (LANTUS SOLOSTAR, BASAGLAR KWIKPEN) 5 Units SUBCUTANEOUS AT BEDTIME heparin iv infusion (STROKE NOMOGRAM) 25,000 units in NaCl 0.45% 250 mL PREMIX 0-3,000 Units/hr INTRAVENOUS CONTINUOUS isosorbide mononitrate ER 60 mg tab(s) (IMDUR) 60 mg ORAL DAILY carvedilol 25 mg tab(s) (COREG) 25 mg ORAL BID w MEALS amLODIPine 10 mg tab(s) (NORVASC) 10 mg ORAL DAILY LABORATORY: Recent Labs 09/14/17 0028 09/13/17 0933 NA 139 137 K 4.0 4.6 CO2 26 29 ANION 13 11 BUN 19 15 CREAT 1.32* 1.35* GLUC 99 184* Recent Labs 09/14/17 0028 09/13/17 0326 HB 14.8 14.6 HCT 44.7 42.5 WBC 9.47 10.01 PLT 193 204 ASSESSMENT: 61M with CAD (prior PCI to RCA, rPDA and LAD), PAD with prior LLE stent, HNT, HLD, DMII, ARNOLDO who presents with severe 3v CAD here for consideration of CABG. He describes slowly progressive angina over the last several months. Despite presenting with AF with slow ventricular response, he spontaneously cardioverted to sinus rhythm with normal HR (70s). He is being considered for CABG with MAZE and possible SHAD exclusion. PLAN: Active Hospital Problems Diagnosis - CAD (coronary artery disease) History: S/p ELZA to rRCA 2.5x28mm Promus Premier EES on 02/11/15 c/b dissection during cath not amenable to corrective intervention. 09/11/2016 Developed palpitations, CE negative, Abnormal stress test. LHC at [facility] showed triple vessel disease. Transferred to [facility] for CABG eval. Last dose of Plavix 09/11/2016 Assessment: CP free OSH LHC uploaded into [employer]. Plan: ASA, IV heparin, Statin, BB, Imdur. CTS recs . - Peripheral arterial disease History: POA S/p multiple interventions, managed by vascular surgeon at OSH Bilateral claudication ABIs abnormal on the L side at rest Has never had chronic ulcers etc. Re concern for poor wound healing Plan: CTS vascular surgery consult? Call Sunday if CTS desires. 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 Range 04/01/2017 00:00 Hemoglobin A1C Latest Ref Range: 4.8 - 5.9 % 7.9 (A) Plan: SS insulin. - HTN (hypertension) History: Home meds: Imdur 60mg, losartan 25mg, carvedilol 25mg BID, Norvasc 10mg., HCTZA 12.5mg Plan: Continue home meds except for HCTZ, monitor need to titrate meds. - Hyperlipidemia History: POA: Home med: atorvastatin. Assessment: no current cholesterol results Plan: Continue Lipitor 80mg, - Obesity, Class II, BMI 35-39.9 History: POA Assessment: Body mass index is 36.36 kg/m?. Plan: discussed wt loss. - Chronic low back pain History: present SHAKER OUT Assessment: Takes Kane Pt concerned post op laying flat will have a lot of pain Plan: Continue Kane Case to be discussed with staff Jakob Eric MD, PhD Cardiovascular Medicine Fellow Pager [phone] (please see below for after hours communication) September 14, 2017 For communication after 5 pm on weekdays and after 12 pm on weekends, please page the following: - Clinical Cardiology patients on all floors: page [phone] - Other Cardiology patients on J5 and J6: page [phone] - Other Cardiology patients on J7 and J8: page [phone] Addendum: Pt admitted by transfer with unstable angina s/p LHC at an outside faciolity on 09/10/17. LHC revealed severe 3 VD. Being evaluated for CABG in the near future. Pt understands the plan. Keith Kovacs DO September 15, 2017 12:00 PM PTT,ANTICOAG THERAPY Collected: 09/14/2017 Status: F Source: [place] 4:06 PM [facility] REPOSITORY TYPE CODE TESTS RESULT OUT OF RANGE REFERENCE UNITS LAB APTT 23.0-32.4 sec High APTT 57.1 Result Comment: Unfractionated Heparin Therapeutic Ranges: Standard Heparin Nomogram: 53 to 78 seconds (anti-Xa level of 0.3 to 0.7 U/ml) Low Dose/ACS Nomogram: 49 to 67 seconds (anti-Xa level of 0.2 to 0.5 U/ml) Stroke Treatment Nomogram: 49 to 67 seconds (anti-Xa level of 0.2 to 0.5 U/ml) Note: The APTT therapeutic range has been determined for the current lot of laboratory APTT reagent in use throughout the [facility]. Performed By: #### PTTAC #### [facility] [address] [place], [place] [address] PROGRESS Observed: 09/14/2017 Status: COMPLETED Source: [place] 2:19 PM [facility] REPOSITORY HNO ID: [id number] Author: India Ridley) Em Service: Cardiovascular Medicine Author Type: Physician Medical Illustrator Type: Progress Notes Filed: 09/14/2017 2:20 PM Note Text: [facility] CARDI[facility]ASCULAR [facility]ICINE PROGRESS NOTE (Template ID [id number]) Noman Stone [id number] PRIMARY SERVICE: Hvi Card Intervention HOSPITAL DAY: # 1 INTERVAL HISTORY CTS work up initiated Denies CP or SOB PHYSICAL EXAM BP 102/58 Pulse 73 Temp 36.9 ?C (98.5 ?F) (Oral) Resp 18 Ht 172.7 cm (5' 8) Wt 108.5 kg (239 lb 1.6 oz) SpO2 93% BMI 36.36 kg/m? Intake/Output Summary (Last 24 hours) at 09/14/17 1419 Last data filed at 09/14/17 1300 Gross per 24 hour Intake 596 ml Output 1325 ml Net -729 ml General Appearance: Obese and No acute distress HEENT: EOM's intact and no JVD Lungs: Clear Heart: Regular rate AND rhythm, S1, S2 normal, Vascular: Pulses - intact and no edema Abdomen: Soft, Round, Non-tender and Bowel sounds present Skin: Warm and Dry Musculoskeletal: No deformities Neurologic/Psychiatric: Oriented to time, place AND person MEDICATIONS Current hospital medications: atorvastatin 80 mg tab(s) (LIPITOR) 80 mg ORAL DAILY losartan 25 mg tab(s) (COZAAR) 25 mg ORAL DAILY HYDROcodone 5 mg - acetaminophen 325 mg tablet (NORCO) 1 tablet ORAL q 6 H PRN aspirin, enteric coated 81 mg tab(s) (ASPIRIN, ENTERIC COATED) 81 mg ORAL DAILY dextrose 40 % 15 g 15 g ORAL PRN glucagon 1 mg injection (GLUCAGEN) 1 mg INTRAMUSCULAR PRN dextrose 50% in water 25 mL syringe 12.5 g INTRAVENOUS PRN acetaminophen 325-650 mg tab(s) (TYLENOL) 325-650 mg ORAL q 4 H PRN docusate sodium 100 mg cap(s) (COLACE) 100 mg ORAL BID PRN insulin lispro injection (rapid acting) (HumaLOG) SUBCUTANEOUS w MEALS insulin lispro injection (rapid acting) (HumaLOG) SUBCUTANEOUS AT BEDTIME insulin glargine 5 Units pen (long acting) (LANTUS SOLOSTAR, BASAGLAR KWIKPEN) 5 Units SUBCUTANEOUS AT BEDTIME heparin iv infusion (STROKE NOMOGRAM) 25,000 units in NaCl 0.45% 250 mL PREMIX 0-3,000 Units/hr INTRAVENOUS CONTINUOUS isosorbide mononitrate ER 60 mg tab(s) (IMDUR) 60 mg ORAL DAILY carvedilol 25 mg tab(s) (COREG) 25 mg ORAL BID w MEALS amLODIPine 10 mg tab(s) (NORVASC) 10 mg ORAL DAILY DATA Recent Labs 09/14/17 0028 09/13/17 0326 WBC 9.47 10.01 HB 14.8 14.6 HCT 44.7 42.5 PLT 193 204 Recent Labs 09/14/17 0028 09/13/17 0933 NA 139 137 K 4.0 4.6 CO2 26 29 BUN 19 15 CREAT 1.32* 1.35* GLUC 99 184* MG 2.2 -- IMAGING reviewed ASSESSMENT AND PLAN 61M with CAD (prior PCI to RCA, rPDA and LAD), PAD with prior LLE stent, HNT, HLD, DMII, ARNOLDO who presents with severe 3v CAD here for consideration of CABG. He describes slowly progressive angina over the last several months. Despite presenting with AF with slow ventricular response, he spontaneously cardioverted to sinus rhythm with normal HR (70s). Reasonable to consider CABG with MAZE and possible SHAD exclusion. Plan: - admit to telemetry - echo pending - continue aspirin (hold P2Y12), statin. Continue BB - LHC uploaded in [employer] for review. Seems a reasonable candidate for CABG with MAZE; CTS consult. - will continue on heparin gtt for AF (currently sinus rhythm) Problem Cad (Coronary Artery Disease) History: S/p ELZA to rRCA 2.5x28mm Promus Premier EES on 02/11/15 c/b dissection during cath not amenable to corrective intervention. 09/11/2016 Developed palpitations, CE negative, Abnormal stress test. LHC at [facility] showed triple vessel disease. Transferred to [facility] for CABG eval. Last dose of Plavix 09/11/2016 Assessment: CP free OSH LHC uploaded into [employer]. Plan: ASA, IV heparin, Statin, BB, Imdur. Consult CTS. Peripheral arterial disease History: POA S/p multiple interventions Assessment: Pt reports he can not use IPCs due to poor circulartion peripheral pulses intact cont medical tx Plan: On heparin drip due to unstable angina. Check ABIs. 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 Range 04/01/2017 00:00 Hemoglobin A1C Latest Ref Range: 4.8 - 5.9 % 7.9 (A) Plan: recheck HGA1C, pt may take his own med Trulicity on Sunday. SS insulin. Htn (Hypertension) History: Home meds: Imdur 60mg, losartan 25mg, carvedilol 25mg BID, Norvasc 10mg., HCTZA 12.5mg Assessment: BP controlled. Plan: Continue home meds except for HCTZ, monitor need to titrate meds. Hyperlipidemia History: POA: Home med: atorvastatin. Assessment: no current cholesterol results Plan: Continue Lipitor 80mg, check Lipids. Obesity, Class II, Bmi 35-39.9 History: POA Assessment: Body mass index is 36.36 kg/m?. Plan: discussed wt loss. Chronic Low Back Pain History: present SHAKER OUT Assessment: Takes [place] Pt concerned post op laying flat will have a lot of pain Plan: Continue [place] and pt to discuss with anesthesia Case to be discussed with staff India Pa PA-C Pager [phone] (please see below for after hours communication) 09/14/2017 2:19 PM For communication after 5 pm on weekdays and after 12 pm on weekends, please page the following: - Clinical Cardiology patients on all floors: page [phone] - Other Cardiology patients on J5 and J6: page [phone] - Other Cardiology patients on J7 and J8: page [phone] PTT,ANTICOAG THERAPY Collected: 09/14/2017 Status: F Source: [place] 10:00 AM [facility] REPOSITORY TYPE CODE TESTS RESULT OUT OF RANGE REFERENCE UNITS LAB APTT 23.0-32.4 sec High APTT 54.8 Result Comment: Unfractionated Heparin Therapeutic Ranges: Standard Heparin Nomogram: 53 to 78 seconds (anti-Xa level of 0.3 to 0.7 U/ml) Low Dose/ACS Nomogram: 49 to 67 seconds (anti-Xa level of 0.2 to 0.5 U/ml) Stroke Treatment Nomogram: 49 to 67 seconds (anti-Xa level of 0.2 to 0.5 U/ml) Note: The APTT therapeutic range has been determined for the current lot of laboratory APTT reagent in use throughout the [facility]. Test result is abnormal, but may be spuriously affected by hemolysis, icterus or discolored plasma. Specimen slightly hemolyzed. Performed By: #### PTTAC #### [facility] [address] [place], [place] [address] CBC Collected: 09/14/2017 Status: F Source: [place] 12:28 AM [facility] REPOSITORY TYPE CODE TESTS RESULT OUT OF REFERENCE UNITS RANGE LAB WBC 3.70-11.00 k/uL WBC 9.47 LAB RBC 4.20-6.00 m/uL RBC 4.95 LAB HGB 13.0-17.0 g/dL Hemoglobin 14.8 LAB HCT 39.0-51.0 % Hematocrit 44.7 LAB MCV 80.0-100.0 fL MCV 90.3 LAB MCH 26.0-34.0 pG MCH 29.9 LAB MCHC 30.5-36.0 g/dL MCHC 33.1 LAB RDWCV 11.5-15.0 % RDW-CV 13.2 LAB PLTCT 150-400 k/uL Platelet Count 193 LAB MPV 9.0-12.7 fL MPV 10.5 LAB ABSNUC <0.01 k/uL Absolute nRBC <0.01 Performed By: #### CBC, BMP #### [facility] [address] [place], [place] [address] BASIC METABOLIC PANL Collected: 09/14/2017 Status: F Source: [place] 12:28 AM [facility] REPOSITORY TYPE CODE TESTS RESULT OUT OF REFERENCE UNITS RANGE LAB GLU 74-99 mg/dL Glucose 99 Result Comment: The [place] Diabetes Association (ADA) provides guidance for cutoff values for fasting glucose and random glucose. The ADA defines fasting as no caloric intake for at least 8 hours. Fas ting plasma glucose results between 100 to 125 mg/dL indicate increased risk for diabetes (prediabetes). Fasting plasma glucose results greater than or equal to 126 mg/dL meet the criteria for diagnosis of diabetes. In the absence of unequivocal hyperglycemia, results should be confirmed by repeat testing. In a patient with classic symptoms of hyperglycemia or hyperglycemic crisis, random plasma glucose results greater than or equal to 200 mg/dL meet the criteria for diagnosis of diabetes. Reference: Standards of Medical Care in Diabetes 2016, [place] Diabetes Association. Diabetes Care. 2016.39(Suppl 1). LAB BUN 9-24 mg/dL BUN 19 LAB CRET 0.73-1.22 mg/dL Creatinine High 1.32 LAB NA 136-144 mmol/L Sodium 139 LAB K 3.7-5.1 mmol/L Potassium 4.0 LAB CL 97-105 mmol/L Chloride 100 LAB CO2 22-30 mmol/L CO2 26 LAB AGAP 9-18 mmol/L Anion Gap 13 LAB CA 8.5-10.2 mg/dL Calcium, Total 9.4 LAB GFRAA eGFR- Amer. >60 LAB GFRNAA . eGFR-All Other Races 55 Result Comment: eGFR (Estimated GFR) Units of measure: mL/min/1.73 meters squared eGFR is derived from the reexpressed MDRD Study equation using the following parameters: serum creatinine, age, gender and race. The creatinine assay has been calibrated to be traceable to IDMS. An eGFR <60 mL/min/1.73m2 for >3 months is consistent with chronic kidney disease. Refer to KDOQI guidelines for clinical interpretation. In patients with unstable renal function, e.g. those with acute kidney injury, the eGFR may not accurately reflect actual GFR. Performed By: #### CBC, BMP #### [facility] [address] [place], [place] [address] PTT,ANTICOAG THERAPY Collected: 09/14/2017 Status: F Source: MAR[place]EL 12:28 [facility] REPOSITORY TYPE CODE TESTS RESULT OUT OF RANGE REFERENCE UNITS LAB APTT 23.0-32.4 sec High APTT 41.9 Result Comment: Unfractionated Heparin Therapeutic Ranges: Standard Heparin Nomogram: 53 to 78 seconds (anti-Xa level of 0.3 to 0.7 U/ml) Low Dose/ACS Nomogram: 49 to 67 seconds (anti-Xa level of 0.2 to 0.5 U/ml) Stroke Treatment Nomogram: 49 to 67 seconds (anti-Xa level of 0.2 to 0.5 U/ml) Note: The APTT therapeutic range has been determined for the current lot of laboratory APTT reagent in use throughout the [facility]. Performed By: #### PTTAC #### [facility] [address] [place], [place] [address] MAGNESIUM Collected: 09/14/2017 Status: F Source: MAR[place]EL 12:28 [facility] REPOSITORY TYPE CODE TESTS RESULT OUT OF REFERENCE UNITS RANGE LAB MG 1.7-2.3 mg/dL Magnesium 2.2 Performed By: #### MG1 #### [facility] [address] [place], [place] [address] LIPID PANEL, BASIC Collected: 09/14/2017 Status: F Source: [place]EL 12:28 [facility] REPOSITORY TYPE CODE TESTS RESULT OUT OF REFERENCE UNITS RANGE LAB CHOL <200 mg/dL Cholesterol 123 Result Comment: <200 mg/dL, Desirable 200-239 mg/dL, Borderline high >239 mg/dL, High LAB TRIGLY <150 mg/dL Triglyceride High 167 Result Comment: <150 mg/dL, Normal 150-199 mg/dL, Borderline high 200-499 mg/dL, High >499 mg/dL, Very high LAB HDL >39 mg/dL HDL-Cholesterol Low 34 Result Comment: 40-59 mg/dL, Acceptable >59 mg/dL, High: Negative risk factor for coronary heart disease <40 mg/dL, Low: Positive risk factor for coronary heart disease LAB LDL <100 mg/dL LDL-Cholesterol 56 Result Comment: <100 mg/dL, Optimal 100-129 mg/dL, Near optimal/above optimal 130-159 mg/dL, Borderline high 160-189 mg/dL, High >189 mg/dL, Very high Secondary prevention optimal LDL Cholesterol levels are recommended to be < 70 mg/dL LAB NONHDL <130 mg/dL Non HDL Cholesterol 89 Result Comment: <130 mg/dL, Optimal 130-159 mg/dL, Near optimal/above optimal 160-189 mg/dL, Borderline high 190-219 mg/dL, High >219 mg/dL, Very high Secondary prevention optimal non HDL Cholesterol levels are recommended to be < 100 mg/dL LAB FT hrs Fasting Time Unknown LAB VLDL <30 mg/dL VLDL 33 High Cholesterol LAB TCHDL <5.10 TC:HDL Ratio 3.62 LAB LDLHDL <2.54 LDL:HDL Ratio 1.65 Result Comment: Reference: 1. National Cholesterol Education Program ATP III Guideline At-A-Glance Quick Desk Reference: National Heart, Lung, and Blood Royal. National Institutes of Health. 2001: NIH Publication No. 01-3305. 2. An International Atherosclerosis Society position paper: global recommendations for the management of dyslipidemia: executive summary, Atherosclerosis. 2014: 232(2):410-413. Performed By: #### LIPB #### [facility] [address] [place], [place] [address] CONFIRM BLOOD TYPE Collected: 09/13/2017 Status: F Source: [place] 7:43 PM [facility] REPOSITORY TYPE CODE TESTS RESULT OUT OF REFERENCE UNITS RANGE LAB %ABR O ABO/RH(D) POSITIVE Performed By: #### CONABO #### [facility] [address] [place], [place] [address] CT CHEST CARDIAC WO Observed: 09/13/2017 Status: F Source: [place] 5:42 PM [facility] REPOSITORY * * *Final Report* * * DATE OF EXAM: Sep 13 2017 5:42PM [facility]QC 205 - CT CHEST CARDIAC WO IVCON / PROCEDURE REASON: Prior revascularization (either PTCA or CABG) * * * * Physician Interpretation * * * * CT Aorta chest Direct Image Comparison: CXR 09/13/2017 HISTORY: 61 years Male patient recently admitted with acute on chronic h/o chest pain. H/o CAD, s/p PCI The patient is evaluated for further treatment options. There is need to define thoracic and aortic anatomy. TECHNIQUE: In-patient scan SCANNER: Multi-detector CT technology (Giorgio Brilliance 64-slice scanner) PROTOCOL: Spiral imaging of the chest with retrospective gating with 1 and 3 mm slice reconstruction in diastolic phase without administration of contrast material. Scan Range: thoracic inlet to the diaphragm Tube Voltage: [address] Dose-Length Product (DLP): 442 mGy*cm CT Dose Reduction Employed: Automated exposure control (AEC) Radiation Shielding Employed: Yes CONTRAST: None Scan acquisition: uncomplicated For optimization of anatomic evaluation, off-line postprocessing was performed on a dedicated workstation by the interpreting physician. Additional lung CAD STUDY LIMITATIONS: Increased Noise RESULT: CHEST: Chest wall anatomy: unremarkable Lungs: scattered calcified lung nodules, Mediastinum: small mediastinal lymph nodes, which are not pathologic by size criteria Pericardium: unremarkable Central pulmonary artery: upper normal dimensions, assessment is limited due to lack of contrast enhancement CARDIAC CHAMBERS: assessment is limited in the non-contrast enhanced study Overall normal dimensions CENTRAL VENOUS and PULMONARY VENOUS RETURN: normal Coronary Sinus: normal dimensions MITRAL VALVE: no mitral valve calcification No mitral annular calcification CORONARY ANATOMY: Normal origin of the coronary arteries Diffuse, calcified atherosclerotic changes of the coronary arteries, precluding precise assessment with CT. Presence of stents can not be excluded. - [place] ANALIA and LIZA are normal size vessels without evidence of calcified atherosclerotic changes. AORTA AORTIC VALVE: Assessment is limited in the current study; mild calcification at the commisures AORTIC ROOT: upper normal size; Diameter: 3.7 cm Sinotubular Junction: maintained; no calcification ASCENDING THORACIC AORTA: normal size; Diameter: 3.6 cm ; no calcification Aortic Arch: normal size; Maximum Diameter: 3 cm ; no calcification Arch Branch Vessels: normal size; assessment for patency is not possible in the non-contrast enhanced study; no calcification; Descending Thoracic Aorta: normal size; mild calcification; Relationship OF CARDIOVASCULAR STRUCTURES TO STERNUM: The left brachio-cephalic vein lies 8 mm behind the manubrium sternum. The RV lies 9 mm behind the lower sternum. AORTIC CALCIFICATION: see above. absence of calcification of the ascending thoracic aorta AORTIC ARCH BRANCH VESSELS: see above. Mid and distal subclavian arteries: normal size vessels without evidence of calcification Assessment of patency is not possible in a non-contrast study IMPRESSION: AORTIC VALVE: mild calcification at the commisures AORTIC ROOT: upper normal size; Diameter: 3.7 cm ASCENDING THORACIC AORTA: normal size; Diameter: 3.6 cm ; no calcification Diffuse, calcified atherosclerotic changes of the coronary arteries, precluding precise assessment with CT. Presence of stents can not be excluded. [place] Images reconstructed, saved, and available in [employer], '[facility] Images' 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 Transcribe Date/Time: Sep 13 2017 5:55P Dictated by : TEX BANUELOS MD This examination was interpreted and the report reviewed and electronically signed by: TEX BANUELOS MD on Sep 13 2017 6:03PM EST [id number] Observed: 09/13/2017 Status: COMPLETED Source: [place] 5:36 PM [facility] REPOSITORY O ID: [id number] Author: RODOLFO Melchor (Ct) Service: Radiology Author Type: Clinical Library Associate Type: Progress Notes Filed: 09/13/2017 5:41 PM Note Text: Radiology Service Progress Note PATIENT NAME: Noman Stone DATE OF SERVICE: September 13, 2017 TIME: 5:36 PM PATIENT IDENTITY VERIFICATION COMPLETED USING TWO (2) METHODS: Patient confirmed name verbally and ID band matches.. PATIENT GENDER DATA: Male PATIENT RELEVANT IMPLANT DATA REVIEWED: Yes RADIOLOGY DEPARTMENT: CT; Exam(s) Completed: Cardiac PERIPHERAL IV DATA: Not applicable SIGNED BY: RODOLFO Melchor September 13, 2017 5:36 PM PTT,ANTICOAG THERAPY Collected: 09/13/2017 Status: F Source: [place] 5:20 PM [facility] REPOSITORY TYPE CODE TESTS RESULT OUT OF RANGE REFERENCE UNITS LAB APTT 23.0-32.4 sec High APTT 36.6 Result Comment: Unfractionated Heparin Therapeutic Ranges: Standard Heparin Nomogram: 53 to 78 seconds (anti-Xa level of 0.3 to 0.7 U/ml) Low Dose/ACS Nomogram: 49 to 67 seconds (anti-Xa level of 0.2 to 0.5 U/ml) Stroke Treatment Nomogram: 49 to 67 seconds (anti-Xa level of 0.2 to 0.5 U/ml) Note: The APTT therapeutic range has been determined for the current lot of laboratory APTT reagent in use throughout the [facility]. Performed By: #### PTTAC #### [facility] [address] [place], [place] [address] TYPE AND SCREEN Collected: 09/13/2017 Status: F Source: [place] 5:20 PM [facility] REPOSITORY TYPE CODE TESTS RESULT OUT OF REFERENCE UNITS RANGE LAB %ABR O ABO/RH(D) POSITIVE LAB % Antibody NEG Screen Performed By: #### TSCR #### [facility] [address] [place], [place] [address] CASE MGT INIT Observed: 09/13/2017 Status: COMPLETED Source: [place] 5:04 PM [facility] REPOSITORY HNO ID: [id number] Author: Crystal VelázquezRn) GENIA Cosme Service: Care Management Author Type: Registered Nurse Type: Care Mgt Initial Assessment Filed: 09/13/2017 5:13 PM Note Text: CARE MANAGEMENT: ASSESSMENT AND DISCHARGE PLAN SERVICE DATE: 09/13/2017 SERVICE TIME: 5:05 PM PRIMARY CARE PHYSICIAN: Mian Wilburn III MD confirmed ADMISSION STATUS: Inpatient Needs Prior to Discharge: To Be Determined 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 No Advance Directive: Current Advance Directive: None Yarn Packer Assisted with AD Completion: Yes Action: Education Provided (paperwork given) Health Literacy: 1. How often do you need to have someone help you when you read instructions, pamphlets, or other written material from your doctor or pharmacy? Never - 1 2. How confident are you filling out medical forms by yourself? Extremely - 1 If Patient scores > 3 on either question, the following interventions were put into place: Patient did not score > 3 FUNCTIONAL AND COGNITIVE/BEHAVIORAL PRIOR TO ADMISSION: Baseline Mental Status: Alert AND Oriented, Person, Place , Time and Situation Functional Status: Independent Does Patient Currently Receive Any Community Services or Home Care? None Equipment Prior to Admission: Bi-level Positive Airway Pressure/Continuous Positive Airway Pressure Glucometer Has the Patient Been in a Prison Facility in the Past 30 days? 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 No Caregiver Needed Patient's transition needs and plan for meeting these needs: return home Does the patient have an acute stroke diagnosis, or has the patient had a stroke during this admission? No Medication Adherence: I am convinced of the importance of my prescription medication: Agree completely - 0 I worry that my prescription medication will do more harm than good to me Disagree completely - 0 I feel financially burdened by my [id number] expenses for my prescription medication: Disagree completely - 0 Patient is categorized as low risk < 2 Are you interested in bedside delivery of your medications? No Food Concerns: In the Last Month, Have You had Trouble Getting Food? No trouble getting food During the Last Month, Have You Worried Whether Your Food Would Run Out Before You Had Enough Money to Buy More? No Is the Patient Psychosocially Complex? 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 Lives with spouse. Independent SHAKER OUT. Owns a glucometer and BiPAP, no other DME reported. Has transportation at discharge. Awaiting pre-op testing for O[facility]. Discharge date and needs TBD. TCC/SW to follow. SIGNATURE: Crystal Cosme RN PATIENT NAME: Noman Stone DATE: September 13, 2017 TIME: 5:04 PM PAGER/CONTACT #: [phone] URINALYSIS Collected: 09/13/2017 Status: F Source: [place] 4:43 PM [facility] REPOSITORY TYPE CODE TESTS RESULT OUT OF RANGE REFERENCE UNITS LAB UCOL Yellow Color Yellow LAB [facility] Clear Clarity Clear LAB UGLUC Negative mg/dL Glucose, Urine Negative LAB UBIL Negative Bilirubin, Urine Negative LAB UKET Negative Ketones, Urine Negative LAB USPG 1.005-1.030 Specific [place], Ur 1.025 LAB UHGB Negative Hemoglobin/Blood, Negative Ur LAB UPH 4.5-8.0 pH 5.0 LAB UPROT Negative mg/dL Protein, Abnormal Urine 30 Alert LAB UUROB Normal Urobilinogen Normal LAB UNITR Negative Nitrites Negative LAB ULKEST Negative Leukest Negative LAB UCOM Comments SEE COMMENT Result Comment: Microscopic Examination Performed LAB UWBC 0-5 /HPF WBC 0-5 LAB URBC 0-3 /HPF RBC 0-3 LAB UCAST 0 /LPF Abnormal Alert Cast SEE COMMENT Result Comment: 4-10 Hyaline Cast LAB UEPI /HPF Epithelial SEE Cells COMMENT Result Comment: Few Squamous Epithelial Cells LAB UMCOM Urine SEE Calvin Comment COMMENT Result Comment: N/A Performed By: #### UA #### [facility] [address] [place] [address] STAPH AUREUS PCR Collected: 09/13/2017 Status: F Source: [place] 4:22 PM [facility] REPOSITORY TYPE CODE TESTS RESULT OUT OF REFERENCE UNITS RANGE LAB SASRC Nasal S aureus Spec Source LAB MRSRES Negative for MRSA MRSA by PCR. PCR LAB SARES Negative for Staph Staphylococcus aureus PCR aureus by PCR. Performed By: #### SAPCR #### [facility] [address] [place], [place] [address] CONSULT Observed: 09/13/2017 Status: COMPLETED Source: [place] 11:57 AM [facility] REPOSITORY HNO ID: [id number] Author: Shira Pérez Service: Cardiac Surgery Author Type: Nurse Practitioner Type: Consults Filed: 09/14/2017 11:51 AM Note Text: CONSULT HISTORY and PHYSICAL CARDIOTHORACIC SURGERY Consulting Service: Cardiothoracic Surgery Requesting Provider: [facility] Procurement Director, Dr. Francisca Nguyen Opinion/advice regarding: Pre-Op Open Heart Surgery Cardiothoracic Physician: Abel Torrez M.D. NAME: Noman Stone HEIGHT: 172.7 cm WEIGHT: 105.9 kg Intended Procedure: Isolated CABG REDO: No STS SCORE: pending Has this patient been previously evaluated for Open Heart Surgery for this condition? Yes, but refered to [facility] for surgical managment HPI: (4) This is a 61 year old male who presents in consultation for an opinion regarding treatment options for coronary artery disease. He is currently symptomatic presented to local ER with palpitations and chest tightness. Thereafter had abnormal cardiac stress test. Subsequently had LHC showed severe CAD. The EF by outside echo was normal. Transferred here for surgery. Mr. Noman Stone is a pleasant 61 year old man with IDDM, PAD S/P prior peripheral stent and cardiac stent on chronic use of Plavix since (last dose 09/11). History of premature family history of CAD, obesity, HTN and poorly documented paroxysmal AF. Given significant history CAD S/P cardiac stent 2011 and 2014 a Comorbidities include: IDDM,HTN, PAD, PVD, claudication, CAD PAST MEDICAL HISTORY: PAST MEDICAL HISTORY Diagnosis Date - Acute renal failure (HCC) - CAD (coronary artery disease) - Diabetes mellitus (HCC) 11/17/2010 - Essential hypertension, benign - GERD (gastroesophageal reflux disease) 11/17/2010 - H/O percutaneous transluminal coronary angioplasty - Hyperlipidemia - Low testosterone 12/12/2011 - Other and unspecified hyperlipidemia - PAD (peripheral artery disease) (HCC) - Paroxysmal atrial fibrillation (HCC) - Raynaud's syndrome - Shift work sleep disorder 05/03/2015 - Type 2 diabetes mellitus with stage 3 chronic kidney disease, with long-term current use of insulin (HCC) 12/09/2015 - Type II or unspecified type diabetes mellitus with peripheral circulatory disorders, uncontrolled(250.72) 08/28/2013 PAST SURGICAL HISTORY: PAST SURGICAL HISTORY Procedure Laterality Date - COLONOSCOP W/ OR W/O [facility] SPEC 04-12-10 - COLONOSCOPY W/BX 07-07-15 - EGD W/O [facility] SPECIMEN W/BX 07-07-15 - HEART CATHETERIZATION 2008 with stents - PAST SURGICAL HISTORY OF 10/03/10 bilat lower extremity arteriogram with angioplasty - PAST SURGICAL HISTORY OF 03/09/10 Bilat lower ext arteriogram left pop and sup fem artery angioplasty - PAST SURGICAL HISTORY OF 09/14/05 bilat arteriogram with left pop manometry - PLACE CATH SUBSUBSELECT ART,ABD/PEL 09/14/05 - REM LESION NEC,HAND,SCAL<0.5CM 01/29/10 Exc. right infra-auricular lesion - REM LESION NEC,HAND,SCAL<0.5CM 12/10/13 EXc. right foot lesion - REPAIR ING HERNIA,5+Y/O,REDUCIBL 1963 Hernia repair, inguinal - REVSC OPN/PRG FEM/POP W/ANGIOPLASTY [facility] 05-11-10 RIGHT POP - REVSC OPN/PRG FEM/POP W/ANGIOPLASTY [facility] 02/17/08 right fem with angioplasty,catheter placed right pop,right sfa,LLE ateriogram - REVSC OPN/PRG FEM/POP W/ANGIOPLASTY [facility] 11/26/07 L fem angio with stenting and smart stent placed - REVSC OPN/PRG FEM/POP W/ANGIOPLASTY [facility] 07-17-11 left leg - REVSC OPN/PRQ FEM/POP W/ATHRC/ANGIOP [facility] 05-11-10 RIGHT SFA - REVSC OPN/PRQ TIB/NI W/ANGIOPLASTY [facility] 05-11-10 RIGHT - REVSC OPN/PRQ TIB/NI W/ANGIOPLASTY [facility] 01-09-14 - REVSC OPN/PRQ TIB/NI W/ATHRC/ANGIOP [facility] 07-03-11 right leg - REVSC OPN/PRQ TIB/NI W/ATHRC/ANGIOP [facility] 02-10-13 RIGHT FAMILY HISTORY: FAMILY HISTORY Problem Relation Age of Onset - Heart Father - Hypertension Maternal Grandmother - GI Maternal Grandmother - Heart Paternal Grandfather - Cancer Mother lung - Cancer Sister Non hodgkins lymphoma - Diabetes Maternal Grandfather FAMILY HISTORY OF CAD: Yes SOCIAL HISTORY: Social History Substance Use Topics - Smoking status: Never Smoker - Smokeless tobacco: Never Used - Alcohol use Yes MEDICATIONS: Prior to Admission Medications: TRULICITY 1.5 mg/0.5 mL pnij INJECT 1.5MG SUBCUTANEOUSLY ONCE EACH WEEK, DISCARD PEN AFTER losartan (COZAAR) 25 mg tablet Take 1 tablet by mouth once daily. isosorbide mononitrate ER (IMDUR) 60 mg 24 hr tablet Take 1 tablet by mouth once daily. carvedilol (COREG) 25 mg tablet Take 1 tablet by mouth twice daily with meals. insulin glargine (LANTUS U-100 INSULIN) 100 unit/mL injection Inject 30 Units subcutaneously daily at bedtime. Via Syringe atorvastatin (LIPITOR) 80 mg tablet Take 1 tablet by mouth once daily. HYDROcodone-acetaminophen (NORCO) 5-325 mg per tablet Take 1 tablet by mouth twice daily as needed for Pain for up to 30 days. HYDROcodone-acetaminophen (NORCO) 5-325 mg per tablet Take 1 tablet by mouth twice daily as needed for Pain for up to 30 days.Earliest Fill Date: 05/05/17 HYDROcodone-acetaminophen (NORCO) 5-325 mg per tablet Take 1 tablet by mouth twice daily as needed for Pain for up to 30 days.Earliest Fill Date: 06/02/17 amLODIPine (NORVASC) 10 mg tablet Take 1 tablet by mouth once daily. gemfibrozil (LOPID) 600 mg tablet Take 0.5 tablets by mouth twice daily. Hydrochlorothiazide 12.5 mg capsule TAKE 1 CAPSULE BY MOUTH ONCE DAILY clopidogrel (PLAVIX) 75 mg tablet Take 1 tablet by mouth once daily. Magnesium Oxide 500 mg cap Take 500 mg by mouth once daily. Insulin Syringe-Needle U-100 (BD INSULIN SYRINGE ULTRAFINE) 0.3 mL 31 gauge x 5/16 syrg 10 Units once daily. nitroglycerin sublingual (NITROSTAT) 0.4 mg SL tablet Dissolve 1 tablet under the tongue as needed. DISSOLVE ON TONGUE FOR CHEST PAIN. IF NO PAIN RELIEF, CALL 911 blood sugar diagnostic (FREESTYLE LITE STRIPS) test strip TEST BLOOD SUGAR ONCE DAILY. DX: E11.65. Insulin: No Cholecalciferol, Vitamin D3, 1,000 unit cap Take 1 capsule by mouth once daily. aspirin(ECOTRIN LOW STRENGTH 81 MG TAB) Take one(1) tablet daily. Current hospital medications: atorvastatin 80 mg tab(s) (LIPITOR) 80 mg ORAL DAILY [START ON 09/14/2017] losartan 25 mg tab(s) (COZAAR) 25 mg ORAL DAILY HYDROcodone 5 mg - acetaminophen 325 mg tablet (NORCO) 1 tablet ORAL q 6 H PRN aspirin, enteric coated 81 mg tab(s) (ASPIRIN, ENTERIC COATED) 81 mg ORAL DAILY dextrose 40 % 15 g 15 g ORAL PRN glucagon 1 mg injection (GLUCAGEN) 1 mg INTRAMUSCULAR PRN dextrose 50% in water 25 mL syringe 12.5 g INTRAVENOUS PRN acetaminophen 325-650 mg tab(s) (TYLENOL) 325-650 mg ORAL q 4 H PRN docusate sodium 100 mg cap(s) (COLACE) 100 mg ORAL BID PRN insulin lispro injection (rapid acting) (HumaLOG) SUBCUTANEOUS w MEALS insulin lispro injection (rapid acting) (HumaLOG) SUBCUTANEOUS AT BEDTIME insulin glargine 5 Units pen (long acting) (LANTUS SOLOSTAR, BASAGLAR KWIKPEN) 5 Units SUBCUTANEOUS AT BEDTIME heparin iv infusion (STROKE NOMOGRAM) 25,000 units in NaCl 0.45% 250 mL PREMIX 0-3,000 Units/hr INTRAVENOUS CONTINUOUS isosorbide mononitrate ER 60 mg tab(s) (IMDUR) 60 mg ORAL DAILY carvedilol 25 mg tab(s) (COREG) 25 mg ORAL BID w MEALS amLODIPine 10 mg tab(s) (NORVASC) 10 mg ORAL DAILY ALLERGIES: ALLERGIES Allergen Reactions - Adhesive Rash Redness to skin - Lisinopril Cough - Penicillins Unknown childhood COMPLETE REVIEW OF SYSTEMS: (10) Review Of Systems GENERAL:Negative for malaise, significant weight loss and fever HEENT:Negative for frequent or significant headaches, significant changes in vision or vision problems, significant ear problems or hearing loss NECK:Negative for lumps, goiter, pain and significant neck swelling RESPIRATORY: Negative for cough, wheezing and shortness of breath CARDIOVASCULAR: ++ chest tightness and palpitation GASTROINTESTINAL: Negative for abdominal discomfort GENITOURINARY: Negative for dysuria, frequency and incontinence MUSCULOSKELETAL: Negative for joint pain or swelling, back pain, and muscle pain. NEUROLOGIC:Negative for focal numbness or weakness, headaches and dizziness. SKIN:Negative for lesions, rash, and itching. PSYCHIATRIC: Negative for sleep disturbance, mood disorder and recent psychosocial stressors. HEMATOLOGIC/LYMPHATIC/IMMUNOLOGIC:Negative for prolonged bleeding, bruising easily, and swollen nodes. Neuro: -numbness tinging focal deficits PHYSICAL EXAM: (8) BP 145/82 Pulse 81 Temp 36.8 ?C (98.2 ?F) (Oral) Resp 18 Ht 172.7 cm (5' 8) Wt 105.9 kg (233 lb 8 oz) SpO2 100% BMI 35.50 kg/m? Constitutional: Well developed, Well nourished and Obese HEENT: EOM's intact and Good dentition Resp: Clear and Respiratory effort: normal Cardiovascular: Regular rate AND rhythm and S1, S2 normal GI: Soft and Bowel sounds present Integumentary: Warm and No rash on chest, arms or legs Musculoskeletal: No deformities Neurological/Psychiatric: Oriented to time, place AND person , Alert, Oriented and No gross focal neurologic deficits Additional systems reviewed: No additional systems reviewed Labs: Invalid input(s): MBP Recent Labs 09/13/17 0326 WBC 10.01 HB 14.6 HCT 42.5 PLT 204 Recent Labs 09/13/17 0933 APTT 32.8* Recent Labs 09/13/17 0933 NA 137 K 4.6 CHLOR 97 CO2 29 BUN 15 CREAT 1.35* GLUC 184* ALKPHOS 53 ALT 23 AST 20 ALB 4.1 Cholesterol, Total 115 02/11/2015 HDL Cholesterol 30 02/11/2015 LDL Cholesterol 74 01/22/2017 DATA: I have personally reviewed the following data: Outside [facility]: 09/10/17- loaded to [employer]. severe multivessel disease (severe (85%) mid LAD, severe (85%) proximal OM2, and severe (85%) PDA stenosis) Echo: Exam indication: CAD - There is a resting wall motion abnormality in the territory of the RCA. - The left ventricle is small. There is mild concentric left ventricular hypertrophy. Left ventricular systolic function is normal. EF = 60 ? 5% (2D biplane) Grade I left ventricular diastolic dysfunction. The basal inferior segment is akinetic. The mid inferior segment is mildly hypokinetic. - The right ventricle is normal in size. Right ventricular systolic function is low normal. - RWMA in RCA territory, as seen on prior echo. - Exam was compared with the prior echocardiographic exam performed on 02/11/2015, similar findings. Conduit: Right hand dominant and remote wrist surgery (affected artery) Left PI: 62% good waveform. Impression: This is a 61 year old year-old male, who is being evaluated for surgical intervention of coronary artery disease. In consideration for surgery, the patient's acute and chronic medical issues have been evaluated as documented above and reviewed in the electronic medical record. Active Hospital Problems Diagnosis - Unstable angina (HCC) Increasing exertional chest pain s/p ELZA to rRCA 2.5x28mm Promus Premier EES on 02/11/15 - CAD (coronary artery disease) Cardiac cath LM: Short vessel with trivial disease. LAD: LAD has mild diffuse disease. Large diagonal branch has 40% mid-vessel stenosis. LCx: Mild diffuse disease. RCA: Dominant. Distal RCA has subtotal occlusion, which extends into PLV and PDA. PDA receives collateral flow from LCx. Impression: Severe obstructive disease involving distal RCA, proximal PDA and proximal PLV. Proceed to PCI of RCA, PDA and PLV. Successful PCI to the rPDA with a 2.5x28mm Promus Premier EES Cardiac cath on 02/11/2015 Noted to have coronary artery dissection during cath on 02/11. This was not amenable to corrective intervention unfortunately. Pt appears to completed infarct and has no further Chest pain EKG is unchanged and no arrhythmias on tele Plan On aspirin and plavix Coreg Nifedipine is at 30 mg daily with addition of nitrates nitrates ARB will have follow up at [facility] of titration and management of medications. Monitor symptoms. - HTN (hypertension) Home meds: nifedipine 60mg, losartan 25mg, carvedilol 3.125mg Given diabetes and CAD, should be on higher doses of losartan and carvedilol if can tolerate and hopefully wean down nifedipine. -Increase losartan to 50mg daily -On isordil 20mg tid currently which can be converted to Imdur as an outpatient -Cut nifedipine to 30mg daily. Ideally would discontinue nifedipine upon and only be on losartan, carvedilol and Imdur - Obesity, Class II, BMI 35-39.9 - Diabetes mellitus type 2 with peripheral artery disease (HCC) Home meds: Januvia, glimepiride, metformin Follow up endo - Peripheral arterial disease S/p multiple interventions cont medical tx - Hyperlipidemia Home med: atorvastatin. Plan: Patient will be seen by the surgeon, Dr. Abel Torrez M.D.. On chronic Plavix therapy last dose 09/11. Will needs days off Plavix to allow wash -out. Before surgery the patient will need the following: Preop testing arranged. Anticipate completion by tomorrow Consider vascular surgery consult as patient has significant claudication, concern of wound healing if SVG conduit is used. Anticipated Discharge Needs: CM consult for placement and PT/OT/RT evalulation for anticipated Home Care needs These findings will be communicated back to the requesting provider electronically. SIGNATURE:Shira Pérez RN [facility]ELER[facility] PAGER:[phone] Date of Service: September 14, 2017 Time of Service: 11:51 AM 12 LEAD ELECTROCARDIOGRAM Observed: 09/13/2017 Status: F Source: [place] 10:17 AM [facility] REPOSITORY [facility] Cardiovascular Services [address] [place] [address] [place] [address] 12 Lead EKG 09/10/17518 MR#: [id number] Acct: [id number] Name: NOMAN STONE Rep #: [id number] : 1955 61 From: Agustín Rawls MD Attending Dr: Jennifer Dukes Status: DIS IN Ordering Dr: Tex Coker MD Date: 09/10/17 Location: [facility] Sex: M C Admitted: 09/09/17 Test Reason : AM EKG Blood Pressure : / mmHG Vent. Rate : 070 BPM Atrial Rate : 070 BPM P-R Int : 184 ms QRS Dur : 096 ms QT Int : 394 ms P-R-T Axes : 057 038 045 degrees QTc Int : 425 ms Normal sinus rhythm Normal ECG When compared with ECG of 09-SEP-2017 19:04, MANUAL COMPARISON REQUIRED, DATA IS UNCONFIRMED Confirmed by AGUSTÍN RAWLS MD ([id number]), acquisitions editor CHRISTINE MILLER ([id number]) on 09/13/2017 10:16:28 AM Referred By: TAMRA Confirmed By:AGUSTÍN RAWLS MD 09/13/17 1016 Date Agustín Rawls MD CC: Jennifer Dukes; Mian Wilburn III, MD; Tex Coker MD Signed 12 LEAD ELECTROCARDIOGRAM Observed: 09/13/2017 Status: F Source: [place] 10:15 AM [facility] REPOSITORY [facility] Cardiovascular Services [address] [place] [address] 12 Lead EKG 09/10/17 1900 MR#: [id number] Acct: [id number] Name: NOMAN STONE Rep #: [id number] : 1955 61 From: Agustín Rawls MD Attending Dr: Jennifer Dukes Status: DIS IN Ordering Dr: Carrie Dukes DO Date: 09/10/17 Location: [facility] Sex: M C Admitted: 09/09/17 Test Reason : RHY CHANGE Blood Pressure : / mmHG Vent. Rate : 067 BPM Atrial Rate : 067 BPM P-R Int : 222 ms QRS Dur : 098 ms QT Int : 398 ms P-R-T Axes : 056 043 048 degrees QTc Int : 420 ms Sinus rhythm with 1st degree A-V block Otherwise normal ECG When compared with ECG of 10-SEP-2017 08:04, MANUAL COMPARISON REQUIRED, DATA IS UNCONFIRMED Confirmed by CAMILA JAEGER, AGUSTÍN ([id number]), acquisitions editor CHRISTINE MILLER ([id number]) on 09/13/2017 10:14:54 AM Referred By: KONG Confirmed By:AGUSTÍN RAWLS MD 09/13/17 1014 Date Agustín Rawls MD CC: Jennifer Dukes; Mian Wilburn III, MD Signed 12 LEAD ELECTROCARDIOGRAM Observed: 09/13/2017 Status: F Source: [place] 10:15 AM [facility] REPOSITORY [facility] Cardiovascular Services [address] [place] [address] 12 Lead EKG 09/10/17 0804 MR#: [id number] Acct: [id number] Name: BERTHANOMAN J Rep #: [id number] : 1955 61 From: Agustín Rawls MD Attending Dr: Jennifer Dukes Status: DIS IN Ordering Dr: Carrie Dukes DO Date: 09/10/17 Location: [facility] Sex: Carrie Yang Admitted: 09/09/17 Test Reason : RHYTHM Blood Pressure : / mmHG Vent. Rate : 069 BPM Atrial Rate : 069 BPM P-R Int : 200 ms QRS Dur : 094 ms QT Int : 388 ms P-R-T Axes : 055 037 036 degrees QTc Int : 415 ms Normal sinus rhythm Normal ECG Confirmed by AGUSTÍN RAWLS MD ([id number]), acquisitions editor CHRISTINE MILLER ([id number]) on 09/13/2017 10:15:23 AM Referred By: TAMRA Confirmed By:AGUSTÍN RAWLS MD 09/13/17 1015 Date Agustín Rawls MD CC: Jennifer Dukes; Mian Wilburn III, MD Signed PTT,ANTICOAG THERAPY Collected: 09/13/2017 Status: F Source: [place] 9:33 AM [facility] REPOSITORY TYPE CODE TESTS RESULT OUT OF RANGE REFERENCE UNITS LAB APTT 23.0-32.4 sec High APTT 32.8 Result Comment: Unfractionated Heparin Therapeutic Ranges: Standard Heparin Nomogram: 53 to 78 seconds (anti-Xa level of 0.3 to 0.7 U/ml) Low Dose/ACS Nomogram: 49 to 67 seconds (anti-Xa level of 0.2 to 0.5 U/ml) Stroke Treatment Nomogram: 49 to 67 seconds (anti-Xa level of 0.2 to 0.5 U/ml) Note: The APTT therapeutic range has been determined for the current lot of laboratory APTT reagent in use throughout the [facility]. Performed By: #### PTTAC #### [facility] [address] [place], [place] [address] COMP METABOLIC PANEL Collected: 09/13/2017 Status: F Source: [place] 9:33 AM [facility] REPOSITORY TYPE CODE TESTS RESULT OUT OF REFERENCE UNITS RANGE LAB TP 6.3-8.0 g/dL Protein, Total 7.3 LAB ALB 3.9-4.9 g/dL Albumin 4.1 LAB CA 8.5-10.2 mg/dL Calcium, Total 9.7 LAB TBIL 0.2-1.3 mg/dL Bilirubin, Total 0.6 LAB ALKP 36-108 U/L Alkaline Phosphatase 53 LAB AST 14-40 U/L AST 20 LAB GLU 74-99 mg/dL Glucose High 184 Result Comment: The [place] [employer] (ADA) provides guidance for cutoff values for fasting glucose and random glucose. The ADA defines fasting as no caloric intake for at least 8 hours. Fas ting plasma glucose results between 100 to 125 mg/dL indicate increased risk for diabetes (prediabetes). Fasting plasma glucose results greater than or equal to 126 mg/dL meet the criteria for diagnosis of diabetes. In the absence of unequivocal hyperglycemia, results should be confirmed by repeat testing. In a patient with classic symptoms of hyperglycemia or hyperglycemic crisis, random plasma glucose results greater than or equal to 200 mg/dL meet the criteria for diagnosis of diabetes. Reference: Standards of Medical Care in Diabetes 2016, [place] [employer] Association. Diabetes Care. 2016.39(Suppl 1). LAB BUN 9-24 mg/dL BUN 15 LAB CRET 0.73-1.22 mg/dL Creatinine High 1.35 LAB NA 136-144 mmol/L Sodium 137 LAB K 3.7-5.1 mmol/L Potassium 4.6 LAB CL 97-105 mmol/L Chloride 97 LAB CO2 22-30 mmol/L CO2 29 LAB AGAP 9-18 mmol/L Anion Gap 11 LAB ALT 10-54 U/L ALT 23 LAB GFRAA eGFR- Amer. >60 LAB GFRNAA . eGFR-All Other Races 54 Result Comment: eGFR (Estimated GFR) Units of measure: mL/min/1.73 meters squared eGFR is derived from the reexpressed MDRD Study equation using the following parameters: serum creatinine, age, gender and race. The creatinine assay has been calibrated to be traceable to IDMS. An eGFR <60 mL/min/1.73m2 for >3 months is consistent with chronic kidney disease. Refer to KDOQI guidelines for clinical interpretation. In patients with unstable renal function, e.g. those with acute kidney injury, the eGFR may not accurately reflect actual GFR. Performed By: #### CMP #### [facility] [address] [place] [address] XR CHEST 2V FRONTAL/LAT Observed: 09/13/2017 Status: F Source: [place] 8:48 AM [facility] REPOSITORY * * *Final Report* * * DATE OF EXAM: Sep 13 2017 8:48AM [id number] - XR CHEST 2V FRONTAL/LAT / PROCEDURE REASON: Chest pain, normal ekg * * * * Physician Interpretation * * * * EXAMINATION: CHEST RADIOGRAPH (2 VIEW FRONTAL and LATERAL) Clinical History: Chest pain, normal ekg MQ: XC2_5 Comparison: RESULT: Lines, tubes, and devices: None. Lungs and pleura: No consolidation. No pneumothorax. No pleural effusion. Cardiomediastinal silhouette: Normal cardiomediastinal silhouette. Other: Minimal endplate degenerative changes of the thoracic spine. IMPRESSION: No acute radiographic abnormality. 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: MARCO Transcribe Date/Time: Sep 13 2017 9:29A Dictated by : ALAYNA RIVAS MD This examination was interpreted and the report reviewed and electronically signed by: GILBERTO ANTUNEZ MD on Sep 13 2017 11:14AM EST [id number] CBC Collected: 09/13/2017 Status: F Source: [place] 3:26 AM [facility] REPOSITORY TYPE CODE TESTS RESULT OUT OF REFERENCE UNITS RANGE LAB WBC 3.70-11.00 k/uL WBC 10.01 LAB RBC 4.20-6.00 m/uL RBC 4.80 LAB HGB 13.0-17.0 g/dL Hemoglobin 14.6 LAB HCT 39.0-51.0 % Hematocrit 42.5 LAB MCV 80.0-100.0 fL MCV 88.5 LAB MCH 26.0-34.0 pG MCH 30.4 LAB MCHC 30.5-36.0 g/dL MCHC 34.4 LAB RDWCV 11.5-15.0 % RDW-CV 13.1 LAB PLTCT 150-400 k/uL Platelet Count 204 LAB MPV 9.0-12.7 fL MPV 10.5 LAB ABSNUC <0.01 k/uL Absolute nRBC <0.01 Performed By: #### CBC #### [facility] [address] [place], [place] [address] ECG COMPLETE W Observed: 09/13/2017 Status: F Source: [place] INTERPRETATION 3:24 AM [facility] REPOSITORY NAME : NOMAN STONE PID : [id number] : 1955 Gender : Male Race : ORD : [id number] Procedure Date : Sep 13 2017 03:24:30 Edit Date : Sep 14 2017 16:10:04 Diagnosis:NORMAL SINUS RHYTHM WITH SINUS ARRHYTHMIA NORMAL ECG Confirmed by JOCELIN GARCIA MD ([id number]) on 09/14/2017 4:10:02 PM Ventricular Rate : 71 BPM Atrial Rate : 71 BPM P-R Interval : 194 ms QRS Duration : 94 ms Q-T Interval : 400 ms QTC Calculation(Bezet) : 434 ms P [place] : 36 degrees R [place] : 39 degrees T [place] : 41 degrees Test Reason : Unstable Angina Location : 362 : [id number] Overread By : JOCELIN GARCIA MD Edited By : JOCELIN GARCIA MD Referred By : , Acquired by : [facility]EE [facility] NURSING PROG Observed: 09/13/2017 Status: COMPLETED Source: [place] 12:30 AM [facility] REPOSITORY HNO ID: [id number] Author: Heidi (Rn) GENIA Payne Service: Nursing Author Type: Registered Nurse Type: Nursing Progress Note Filed: 09/13/2017 1:44 AM Note Text: Nursing Progress Note Patient Name: Noman Stone Patient Location: J2 [facility]/J6-2-08 Transfer Note: Patient transferred into room/unit J62-8 in stable condition. Patient oriented to room and unit protocols. Yellow non-skid slippers applied. Falls video unable to be played at this time (will pass this on to AM RN). Skin check performed with GENIA Garza, with no skin issues noted. Patient resting comfortably in bed with bed in lowest, locked position and two side rails up. Actions taken: No futher actions taken at this time. Will continue to monitor and check with patient. This note was completed by: Heidi Payne, GENIA BEDSIDE GLUCOSE Collected: 09/12/2017 Status: F Source: [place] 8:53 PM [facility] REPOSITORY TYPE CODE TESTS RESULT OUT OF REFERENCE UNITS RANGE LAB L501.080 70-110 mg/dL High BEDSIDE GLU 202 Result Comment: MANAGEMENT OF PATIENT CARE PER NURSING PROTOCOL Performed By: #### L501.080 #### [facility] Laboratory Point of Care [address] [place] [address] BEDSIDE GLUCOSE Collected: 09/12/2017 Status: F Source: [place] 4:34 PM [facility] REPOSITORY TYPE CODE TESTS RESULT OUT OF REFERENCE UNITS RANGE LAB L501.080 70-110 mg/dL High BEDSIDE GLU 156 Result Comment: MANAGEMENT OF PATIENT CARE PER NURSING PROTOCOL Performed By: #### L501.080 #### [facility] Laboratory Point of Care [address] [place], [place] [address] 12 LEAD ELECTROCARDIOGRAM Observed: 09/12/2017 Status: F Source: [place] 3:48 PM [facility] REPOSITORY [facility] Cardiovascular Services [address] [place] [address] 12 Lead EKG 09/09/17 1604 MR#: [id number] Acct: [id number] Name: NOMAN STONE Rep #: [id number] : 1955 61 From: Agustín Rawls MD Attending Dr: Jennifer Dukes Status: ADM IN Ordering Dr: Musa Carter MD Date: 09/09/17 Location: U Sex: M C Admitted: 09/09/17 Test Reason : CP Blood Pressure : / mmHG Vent. Rate : 051 BPM Atrial Rate : 357 BPM P-R Int : 000 ms QRS Dur : 088 ms QT Int : 394 ms P-R-T Axes : 000 035 050 degrees QTc Int : 363 ms Atrial fibrillation Abnormal ECG Confirmed by AGUSTÍN RAWLS MD ([id number]), acquisitions editor CHRISTINE MILLER ([id number]) on 09/12/2017 3:48:08 PM Referred By: IFEOMA/ALEXANDRA Confirmed By:AGUSTÍN RAWLS MD 09/12/17 1548 Date Agustín Rawls MD CC: Jennifer Dukes; Mian Wilburn III, MD; Musa Carter MD Signed BEDSIDE GLUCOSE Collected: 09/12/2017 Status: F Source: [place] 11:25 AM [facility] REPOSITORY TYPE CODE TESTS RESULT OUT OF REFERENCE UNITS RANGE LAB L501.080 70-110 mg/dL High BEDSIDE GLU 158 Result Comment: MANAGEMENT OF PATIENT CARE PER NURSING PROTOCOL Performed By: #### L501.080 #### [facility] Laboratory Point of Care [address] [place] [address] BEDSIDE GLUCOSE Collected: 09/12/2017 Status: F Source: [place] 6:49 AM [facility] REPOSITORY TYPE CODE TESTS RESULT OUT OF REFERENCE UNITS RANGE LAB L501.080 70-110 mg/dL High BEDSIDE GLU 161 Result Comment: MANAGEMENT OF PATIENT CARE PER NURSING PROTOCOL Performed By: #### L501.080 #### [facility] Point of Care [address] [place] [address] PARTIAL THROMBOPLAST Collected: 09/12/2017 Status: F Source: [place] TIME 5:25 AM [facility] REPOSITORY TYPE CODE TESTS RESULT OUT OF RANGE REFERENCE UNITS LAB L300.4310 24.1-36.2 Seconds Normal PTT 28.6 Performed By: #### L300.4310 #### [facility] [address] [place], [address] MAGNESIUM Collected: 09/12/2017 Status: F Source: [place] 5:15 AM [facility] REPOSITORY TYPE CODE TESTS RESULT OUT OF RANGE REFERENCE UNITS LAB L501.5200 1.6-2.6 mg/dL Normal MG 2.3 Performed By: #### L501.5200 #### [facility] [address] [place], [address] BEDSIDE GLUCOSE Collected: 09/11/2017 Status: F Source: [place] 10:10 PM [facility] REPOSITORY TYPE CODE TESTS RESULT OUT OF REFERENCE UNITS RANGE LAB L501.080 70-110 mg/dL High BEDSIDE GLU 200 Result Comment: MANAGEMENT OF PATIENT CARE PER NURSING PROTOCOL Performed By: #### L501.080 #### [facility] Point of Care [address] [place] [address] BEDSIDE GLUCOSE Collected: 09/11/2017 Status: F Source: [place] 5:06 PM [facility] REPOSITORY TYPE CODE TESTS RESULT OUT OF REFERENCE UNITS RANGE LAB L501.080 70-110 mg/dL High BEDSIDE GLU 174 Result Comment: MANAGEMENT OF PATIENT CARE PER NURSING PROTOCOL Performed By: #### L501.080 #### [facility] Point of Care [address] [place] [address] BEDSIDE GLUCOSE Collected: 09/11/2017 Status: F Source: [place] 10:40 AM [facility] REPOSITORY TYPE CODE TESTS RESULT OUT OF REFERENCE UNITS RANGE LAB L501.080 70-110 mg/dL High BEDSIDE GLU 151 Result Comment: MANAGEMENT OF PATIENT CARE PER NURSING PROTOCOL Performed By: #### L501.080 #### [facility] Point of Care [address] [place] [address] BEDSIDE GLUCOSE Collected: 09/11/2017 Status: F Source: [place] 6:48 AM [facility] REPOSITORY TYPE CODE TESTS RESULT OUT OF REFERENCE UNITS RANGE LAB L501.080 70-110 mg/dL High BEDSIDE GLU 127 Result Comment: MANAGEMENT OF PATIENT CARE PER NURSING PROTOCOL Performed By: #### L501.080 #### [facility] Point of Care [address] [place] [address] PARTIAL THROMBOPLAST Collected: 09/11/2017 Status: F Source: [place] TIME 5:15 AM [facility] REPOSITORY TYPE CODE TESTS RESULT OUT OF RANGE REFERENCE UNITS LAB L300.4310 24.1-36.2 Seconds Normal PTT 28.4 Performed By: #### L300.4310 #### [facility] [address] [place], [address] HH, HEMOGLOBIN AND Collected: 09/11/2017 Status: F Source: [place] HEMATOCRIT 5:15 AM [facility] REPOSITORY TYPE CODE TESTS RESULT OUT OF RANGE REFERENCE UNITS LAB L100.1300 13.0-16.5 g/dl Normal HGB 13.9 LAB L100.1400 40-54 % Normal HCT 41.3 Performed By: #### L100.0600 #### [facility] [address] [place], [address] BASIC METABOLIC Collected: 09/11/2017 Status: F Source: [place] PROFILE (BMP) 5:15 AM [facility] REPOSITORY TYPE CODE TESTS RESULT OUT OF RANGE REFERENCE UNITS LAB L501.0100 74-106 mg/dL High GLU 112 Result Comment: Fasting Glucose result from 100 to 125 mg/dL suggests IMPAIRED HOMEOSTASIS per A.D.A. criteria. Please note revised GLUCOSE reference range effective 2017. LAB L501.1000 7-18 mg/dL Normal BUN 12 LAB L501.1100 0.70-1.30 mg/dL Normal CREAT,SERUM 1.19 Result Comment: The validity of the calculated GFR AND GFRAA in patients over 70 years has not been determined. Clinical correlation is essential. LAB L501.1110 >60 mL/min Normal EST GFR 66 Result Comment: Non- GFR Calc LAB L501.1115 >60 mL/min Normal EST GFR - AA 79 Result Comment: GFR Calc LAB L501.1255 ml/min Normal Estimated CRCL 62.27 LAB L501.1300 10-20 RATIO Normal BUN/CRE 10.1 LAB L501.2200 8.5-10 mg/dL Normal .1 CA 8.7 LAB L501.5300 136-14 mmol/L Normal 5 NA 139 LAB L501.5600 3.5-5. mmol/L Normal 1 K 3.8 LAB L501.5900 98-107 mmol/L Normal CL 105 LAB L501.6100 21.0-3 mmol/L Normal 2.0 CO2 27.0 LAB L501.6200 5-15 Normal GAP 7 Performed By: #### L500.2500 #### [facility] [address] [place], [address] BEDSIDE GLUCOSE Collected: 09/10/2017 Status: F Source: [place] 10:37 PM [facility] REPOSITORY TYPE CODE TESTS RESULT OUT OF REFERENCE UNITS RANGE LAB L501.080 70-110 mg/dL High BEDSIDE GLU 176 Result Comment: MANAGEMENT OF PATIENT CARE PER NURSING PROTOCOL Performed By: #### L501.080 #### [facility] Point of Care [address] [place] [address] DISCHARGE INSTRUCTION Observed: 09/10/2017 Status: F Source: [place] 5:26 PM [facility] REPOSITORY [facility] Medical Records Department [address] [place] [address] Instructions for Home/Discharge Instructions 09/10/17 1724 MR#: [id number] Acct: [id number] Name: NOMAN STONE Rep #: [id number] : 1955 61 From: Mika MARIE PCP: Mian Wilburn III, MD Status: ADM IN - Discharge Diagnoses Current Active Problems: Current Active and Chronic Problems Bradycardia (Acute) A-fib (Acute) Type 2 diabetes mellitus (Chronic) Hypertension (Chronic) CAD (coronary artery disease) (Chronic) PAD (peripheral artery disease) (Chronic) S/P PTCA (percutaneous transluminal coronary angioplasty) (Acute) HLD (hyperlipidemia) (Chronic) Raynauds disease (Chronic) You will use the following diet at home:: Other - as directed Your food should be the consistency of: Regular Your liquids should be the consistency of: Regular/Thin Discharge Activity: - - as directed Allergies/Adverse Reactions: Allergies adhesive Allergy (Verified 09/09/17 16:11) Unknown lisinopril Allergy (Verified 09/09/17 16:11) Unknown Penicillins Allergy (Verified 09/09/17 16:11) Unknown Medications to take at Discharge Aspirin [Aspirin, Baby] 81 mg PO DAILY@0800 02/07/13 Clopidogrel Bisulfate [Plavix] 75 mg PO DAILY 02/07/13 Hydrocodone/Acetaminophen [Vicodin 5/500] 1 tablet PO Q4H PRN PRN 02/07/13 Lorazepam [Ativan] 0.5 mg PO BID PRN PRN 02/07/13 Nitroglycerin [Nitrostat] 0.4 mg SUBLINGUAL Q5M PRN 02/07/13 Cholecalciferol (Vitamin D3) [Vitamin D] 5,000 unit PO DAILY 01/16/14 Atorvastatin Calcium [Lipitor] 80 mg PO QHS 04/11/16 Carvedilol [Coreg (Beta Nico)] 25 mg PO BID 07/05/15 Isosorbide Mononitrate [Isosorbide Mononitrate ER] 60 mg PO DAILY 07/05/15 Amlodipine [Norvasc] 10 mg PO DAILY #30 tablet 11/26/15 Insulin Glargine,Hum.rec.anlog [Lantus] 5 unit SQ QHS #1 ml 11/26/15 Dulaglutide [Trulicity] 1.5 mg SQ QWEEK 09/09/17 Gemfibrozil [Lopid] 300 mg PO BID 09/09/17 Hydrochlorothiazide 12.5 mg PO DAILY 09/09/17 Losartan Potassium 25 mg PO DAILY 09/09/17 Magnesium Oxide 500 mg PO DAILY 09/09/17 Primary Care Physician: Mian Wilburn III, MD [Primary Care Provider] - Please follow up with your Primary Care Physician in: as directed Please Follow Up With: Jose Arnold MD When: as directed Proposed Discharge Date: 09/10/17 09/10/17 1726 <Electronically signed by Mika MARIE> Date Mika MARIE CC: Mian Wilburn III, MD; Tex Coker MD ECHOCARDIOGRAM COMPLETE Observed: 09/10/2017 Status: F Source: [place] 4:54 PM [facility] REPOSITORY [facility] Cardiovascular Services [address] [place] [address] Echo Complete 09/10/17 1546 MR#: [id number] Acct: [id number] Name: NOMAN STONE Rep #: [id number] : 1955 61 From: Agustín Rawls MD Attending Dr: Jennifer Dukes Status: ADM IN Ordering Dr: Felecia Roach MD Date: 09/10/17 Location: [facility] Sex: M C Admitted: 09/09/17 Reason For Study: Dyspnea/SOB Procedure This was a 2D Doppler, Color Flow transthoracic echocardiogram. Exam performed portable in patient room. Left Ventricle Normal LV size. Left ventricular systolic function is normal. The estimated ejection fraction is 60 %. No evidence for diastolic dysfunction. No regional wall motion abnormalities noted. Right Ventricle Normal RV size. Normal systolic function. Atria Normal left atrium. Normal right atrium. Mitral Valve Normal mitral valve. Tricuspid Valve Normal tricuspid valve. Unable to estimate RV systolic pressure due to inadequate jet, pulmonary artery pressure probably normal. Aortic Valve Normal aortic valve. Trisinus/trileaflet aortic valve. Pulmonic Valve Normal pulmonic valve. Great Vessels Normal aortic root. The pulmonary artery is normal size. Normal inferior vena cava. Pericardium/Pleural No pericardial effusion. MMode/2D Measurements AND Calculations LVIDd: 4.8 cm IVSd: 0.93 cm Ao root diam: 3.5 cm LVIDs: 3.4 cm LVPWd: 0.92 cm RVDd: 2.9 cm FS: 29.6 % LAV(MOD-bp): 22.9 ml EDV(MOD-sp4): 72.2 ml SV(MOD-sp4): 39.3 ml LAV(MOD-bp) Indexed: 10.4 ml/m2 ESV(MOD-sp4): 32.9 ml LAV(MOD-sp2): 32.5 ml EF(MOD-sp4): 54.4 % LAV(MOD-sp4): 15.2 ml LA A4 area: 9.3 cm2 RA A4 area: 9.4 cm2 Doppler Measurements AND Calculations MV E max guerita: 71.8 cm/sec Lat Peak E' Guerita: 8.1 cm/sec Med Peak E' Guerita: 6.2 cm/sec MV A max guerita: 61.2 cm/sec E/E' lat: 8.9 E/E' med: 11.6 MV E/A: 1.2 Ao V2 max: 106.0 cm/sec LV V1 max: 87.2 cm/sec PA V2 max: 67.3 cm/sec Ao max P.5 mmHg LV V1 max P.0 mmHg Ao V2 mean: 71.6 cm/sec Ao mean P.4 mmHg Ao V2 VTI: 19.8 cm Interpretation Summary Normal LV size. Left ventricular systolic function is normal. The estimated ejection fraction is 60 %. No evidence for diastolic dysfunction. Ordering Physician: Felecia Roach Referring Physician: Mian Wilburn Performed By: Milagro Contreras, WILIAM, RVT 09/10/171652 Date Agustín Rawls MD CC: Felecia Roach MD; Jennifer Dukes; Mian Wilburn III, MD Date Dictated: 09/10/17 1546 Date Transcribed: 09/10/171652 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: Signed BEDSIDE GLUCOSE Collected: 09/10/2017 Status: F Source: [place] 4:46 PM [facility] REPOSITORY TYPE CODE TESTS RESULT OUT OF REFERENCE UNITS RANGE LAB L501.080 70-110 mg/dL High BEDSIDE GLU 140 Result Comment: MANAGEMENT OF PATIENT CARE PER NURSING PROTOCOL Performed By: #### L501.080 #### [facility] Laboratory Point of Care [address] [place] [address] STRESS REPORT Observed: 09/10/2017 Status: F Source: [place] 12:06 [facility] REPOSITORY [facility] Cardiovascular Services [address] [place] [address] MR#: [id number] Acct: [id number] Name: NOMAN STONE Rep #: [id number] : 1955 61 From: Agustín Rawls MD Primary Care: Mian Wilburn III, MD Status: ADM IN Ordering Dr: Delphine: Carrie Yang Stress Test Report Pharmacologic myocardial perfusion stress test. 61-year-old man with a history of atrial fibrillation and coronary artery disease. Stress protocol: Resting EKG demonstrates normal sinus rhythm with a rate of 66 bpm normal intervals are noted. 0.4 mg regadenoson was infused per usual protocol followed by rapid intravenous saline flush injection continuous EKG monitoring was performed. The patient maintained sinus rhythm throughout the recording. The maximum heart rate attained was 88 bpm which was 55% of maximum predicted heart rate the maximum workload was 1 metabolic equivalent. At rest there were no ST or T-wave changes noted suggest abnormal flow reserve at peak infusion no ST or T-wave changes were noted suggest abnormal flow reserve. The resting blood pressure was 162/92 with a final blood pressure 140/82. Myocardial perfusion protocol. 14.3 mCi of technetium 99m sestamibi was injected at rest. 0.4 mg regadenoson was infused per usual protocol peak infusion 44.6 mCi of technetium 99m sestamibi was injected stress images were obtained stress and rest images were reconstructed and compared in the short axis vertical long horizontal long axis. Gated images were also obtained Perfusion SPECT analysis. Review of the stress images demonstrate normal perfusion noted in the septum anterior wall and inferior wall. A portion of the inferolateral wall of the medium size has a defect present on the stress images with moderate improvement on the resting images suggesting a moderate amount of inferolateral ischemia. Gated SPECT analysis: The gated ejection fraction is noted to be 59%. Conclusion: Abnormal pharmacologic myocardial perfusion stress test with evidence of inferolateral ischemia and a moderate zone. Preserved ejection fraction. 09/10/17 1206 <Electronically signed by Agustín Rawls MD> Date Agustín Rawls MD CC: Jennifer Dukes; Mian Wilburn III, MD Date Dictated: 09/10/171202 Date Transcribed: 09/10/171202 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: CO Signed BEDSIDE GLUCOSE Collected: 09/10/2017 Status: F Source: [place] 10:57 AM [facility] REPOSITORY TYPE CODE TESTS RESULT OUT OF REFERENCE UNITS RANGE LAB L501.080 70-110 mg/dL High BEDSIDE GLU 196 Result Comment: MANAGEMENT OF PATIENT CARE PER NURSING PROTOCOL Performed By: #### L501.080 #### [facility] Laboratory Point of Care [address] [place] [address] BEDSIDE GLUCOSE Collected: 09/10/2017 Status: F Source: [place] 6:46 AM [facility] REPOSITORY TYPE CODE TESTS RESULT OUT OF REFERENCE UNITS RANGE LAB L501.080 70-110 mg/dL High BEDSIDE GLU 200 Result Comment: MANAGEMENT OF PATIENT CARE PER NURSING PROTOCOL Performed By: #### L501.080 #### [facility] Laboratory Point of Care [address] [place] [address] BASIC METABOLIC Collected: 09/10/2017 Status: F Source: [place] PROFILE (BMP) 5:10 AM [facility] REPOSITORY TYPE CODE TESTS RESULT OUT OF RANGE REFERENCE UNITS LAB L501.0100 74-106 mg/dL High GLU 212 Result Comment: Glucose result greater than or equal to 200 mg/dL suggests DIABETES MELLITUS per A.D.A. criteria. Please note revised GLUCOSE reference range effective 2017. LAB L501.1000 7-18 mg/dL High BUN 20 LAB L501.1100 0.70-1.30 mg/dL Normal CREAT,SERUM 1.24 Result Comment: The validity of the calculated GFR AND GFRAA in patients over 70 years has not been determined. Clinical correlation is essential. LAB L501.1110 >60 mL/min Normal EST GFR 63 Result Comment: Non- GFR Calc LAB L501.1115 >60 mL/min Normal EST GFR - AA 76 Result Comment: GFR Calc LAB L501.1255 ml/min Normal Estimated CRCL 59.76 LAB L501.1300 10-20 RATIO Normal BUN/CRE 16.1 LAB L501.2200 8.5-10 mg/dL Low .1 CA 8.3 LAB L501.5300 136-14 mmol/L Normal 5 NA 142 LAB L501.5600 3.5-5. mmol/L Normal 1 K 3.8 LAB L501.5900 98-107 mmol/L Normal CL 107 LAB L501.6100 21.0-3 mmol/L Normal 2.0 CO2 28.0 LAB L501.6200 5-15 Normal GAP 7 Performed By: #### L500.2500 #### [facility] [address] [place], [place], [id number] CBC-COMPLETE BLOOD CNT Collected: 09/10/2017 Status: F Source: [place] NO DIFF 5:10 AM [facility] REPOSITORY TYPE CODE TESTS RESULT OUT OF RANGE REFERENCE UNITS LAB L100.1000 4.4-11.0 K/mm3 Normal WBC 9.2 LAB L100.1200 4.6-6.2 M/mm3 Normal RBC 4.84 LAB L100.1300 13.0-16.5 g/dl Normal HGB 14.2 LAB L100.1400 40-54 % Normal HCT 43.8 LAB L100.1500 80-94 fL Normal MCV 90.5 LAB L100.1600 27.0-32.0 pg Normal MCH 29.3 LAB L100.1700 32-36 g/gl Normal MCHC 32.4 LAB L100.1810 11.6-14.6 % Normal RDW CV 13.5 LAB L100.1820 35.1-43.9 fl High RDW SD 44.5 LAB L100.1900 150-450 K/mm3 Normal PLT 176 LAB L100.2000 6.2-12.0 fl Normal MPV 9.9 Performed By: #### L100.0500 #### [facility] [address] [place], [address] PROTHROMBIN TIME W/INR Collected: 09/10/2017 Status: F Source: [place] 5:10 AM [facility] REPOSITORY TYPE CODE TESTS RESULT OUT OF RANGE REFERENCE UNITS LAB L300.4150 11.7-14.9 SECONDS Normal PROTIME 14.1 LAB L300.4200 Normal INR 1.1 Performed By: #### L300.3900, L300.4310 #### [facility] [address] [place], [address] PARTIAL THROMBOPLAST Collected: 09/10/2017 Status: F Source: [place] TIME 5:10 AM [facility] REPOSITORY TYPE CODE TESTS RESULT OUT OF REFERENCE UNITS RANGE LAB L300.4310 24.1-36.2 Seconds High PTT 69.2 Performed By: #### L300.3900, L300.4310 #### [facility] [address] [place], [address] T4 FREE DIRECT Collected: 09/10/2017 Status: F Source: [place] 5:10 AM [facility] REPOSITORY Order Comment: Comments: ok to add on TYPE CODE TESTS RESULT OUT OF RANGE REFERENCE UNITS LAB L506.0400 0.76-1.46 ng/dL Normal T4 FREE 1.20 DIRECT Performed By: #### L506.0400 #### [facility] [address] [place], [address] PARTIAL THROMBOPLAST Collected: 09/10/2017 Status: F Source: [place] TIME 12:20 AM [facility] REPOSITORY TYPE CODE TESTS RESULT OUT OF REFERENCE UNITS RANGE LAB L300.4310 24.1-36.2 Seconds High PTT 60.0 Performed By: #### L300.4310 #### [facility] [address] [place], [address] HOSP Observed: 09/10/2017 Status: COMPLETED Source: [place] 12:00 AM [facility] REPOSITORY Patient:Noman Stone MRN: <[id number]> Height:5' 8(1.727 m) Weight:228 lb 11.2 oz (103.738 kg) Outpatient Medications as of 6/29/18: TRULICITY 1.5 mg/0.5 mL pnij losartan (COZAAR) 25 mg tablet isosorbide mononitrate ER (IMDUR) 60 mg 24 hr tablet carvedilol (COREG) 25 mg tablet insulin glargine (LANTUS U-100 INSULIN) 100 unit/mL injection atorvastatin (LIPITOR) 80 mg tablet HYDROcodone-acetaminophen (NORCO) 5-325 mg per tablet HYDROcodone-acetaminophen (NORCO) 5-325 mg per tablet HYDROcodone-acetaminophen (NORCO) 5-325 mg per tablet amLODIPine (NORVASC) 10 mg tablet gemfibrozil (LOPID) 600 mg tablet Hydrochlorothiazide 12.5 mg capsule clopidogrel (PLAVIX) 75 mg tablet Magnesium Oxide 500 mg cap Insulin Syringe-Needle U-100 (BD INSULIN SYRINGE ULTRAFINE) 0.3 mL 31 gauge x 5/16 syrg nitroglycerin sublingual (NITROSTAT) 0.4 mg SL tablet blood sugar diagnostic (FREESTYLE LITE STRIPS) test strip Cholecalciferol, Vitamin D3, 1,000 unit cap aspirin(ECOTRIN LOW STRENGTH 81 MG TAB) Admission/Clinic Administered Medications as of 09/21/17: Chlorhexidine Gluconate 0.12 % 15 mL (PERIDEX) hydrocortisone topical cream 1% senna-docusate 8.6-50 mg 2 tablet (SENNA-S) polyethylene glycol 3350 17 g packet (MIRALAX, GLYCOLAX) atorvastatin 80 mg tab(s) (LIPITOR) HYDROcodone 5 mg - acetaminophen 325 mg tablet (NORCO) aspirin, enteric coated 81 mg tab(s) (ASPIRIN, ENTERIC COATED) dextrose 40 % 15 g glucagon 1 mg injection (GLUCAGEN) dextrose 50% in water 25 mL syringe acetaminophen 325-650 mg tab(s) (TYLENOL) docusate sodium 100 mg cap(s) (COLACE) insulin lispro injection (rapid acting) (HumaLOG) insulin lispro injection (rapid acting) (HumaLOG) insulin glargine 5 Units pen (long acting) (LANTUS SOLOSTAR, BASAGLAR KWIKPEN) heparin iv infusion (STROKE NOMOGRAM) 25,000 units in NaCl 0.45% 250 mL PREMIX isosorbide mononitrate ER 60 mg tab(s) (IMDUR) carvedilol 25 mg tab(s) (COREG) amLODIPine 10 mg tab(s) (NORVASC) Problem List: Raynaud's syndrome [I73.00] HTN (hypertension) [I10] Hyperlipidemia [E78.5] Peripheral vascular disease, unspecified (HCC) [I73.9] Chronic low back pain [M54.5, G89.29] Unspecified cardiovascular disease [I25.10] Anxiety state [F41.1] Skin lesion [L98.9] Peripheral arterial disease [I73.9] Parotid discomfort [K11.9] Anxiety [F41.9] GERD (gastroesophageal reflux disease) [K21.9] Low testosterone [E34.9] Diabetes mellitus type 2 with peripheral artery disease (HCC) [E11.51] 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] CAD (coronary artery disease) [I25.10] Unstable angina (HCC) [I20.0] Presence of stent in left circumflex coronary artery [Z95.5] Presence of drug coated stent in posterior descending branch of right coronary artery [Z95.5] PAD (peripheral artery disease) ([facility]) [I73.9] Shift work sleep disorder [G47.26] Stable angina ([facility]) [I20.8] Bowel habit changes [R19.4] Type 2 diabetes mellitus with stage 3 chronic kidney disease, with long-term current use of insulin (HCC) [E11.22, N18.3, Z79.4] senior care current use of opiate analgesic [Z79.891] Insulin resistance [E88.81] 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 Patient oriented to room and unit protocols. Yellow non-skid slippers applied. Falls video unable to be played at this time (will pass this on to AM RN). Skin check performed with GENIA Garza, with no skin issues noted. Patient resting comfortably in bed with bed in lowest, locked position and two side rails up. Actions taken: No futher actions taken at this time. Will continue to monitor and check with patient. This note was completed by: GENIA Lombardo MD 09/13/2017 2:28 AM [facility] HEART and VASCULAR [place] CARDIOVASCULAR MEDICINE HISTORY AND PHYSICAL (Template ID [id number]) Noman Stone [id number] PRIMARY SERVICE: Cardiovascular Medicine: Intervention DATE OF ADMISSION: 09/13/2017 CHIEF COMPLAINT Chest discomfort HISTORY OF PRESENT ILLNESS Noman Stone is a 61 year old male with CAD (PCI to OM, PCI to RCA c/b dissection of PL, angioplasty to RCA), PAD with LLE stents, HTN, HL, DMII and ARNOLDO who presented to the ED with skipped beats. He has had paroxysms of palpitations for some time and uses a [employer] smartphone quality assurance monitor at home, which indicated the presence of AF. While this diagnosis has been long present in his chart, he had no knowledge of the diagnosis. He presented to the ED, where AF with slow ventricular response (30-40s) was confirmed (strips unavailable). He did not have positive CBMs but because of reported accompanying chest heaviness, he underwent a stress test whch was abnormal and led ot a LHC. This demonstrated severe multivessel disease (severe (85%) mid LAD, severe (85%) proximal OM2, and severe (85%) PDA stenosis) and he was referred for CABG. His last dose of clopidogrel was September 11. He reports progressive exertion chest pressure that has increased in severity in the prior months. Currently, he is resting in bed without symptoms. His AVN agents were held and rhythm spontaneously converted to sinus rhythm with rates in the 70s. PAST MEDICAL HISTORY PAST MEDICAL HISTORY Diagnosis Date - Acute renal failure (HCC) - CAD (coronary artery disease) - Diabetes mellitus (HCC) 11/17/2010 - Essential hypertension, benign - GERD (gastroesophageal reflux disease) 11/17/2010 - H/O percutaneous transluminal coronary angioplasty - Hyperlipidemia - Low testosterone 12/12/2011 - Other and unspecified hyperlipidemia - PAD (peripheral artery disease) ([facility]) - Paroxysmal atrial fibrillation ([facility]) - Raynaud's syndrome - Shift work sleep disorder 05/03/2015 - Type 2 diabetes mellitus with stage 3 chronic kidney disease, with long-term current use of insulin ([facility]) 12/09/2015 - Type II or unspecified type diabetes mellitus with peripheral circulatory disorders, uncontrolled(250.72) 08/28/2013 PAST SURGICAL HISTORY Procedure Laterality Date - COLONOSCOP W/ OR W/O [facility] SPEC 04-12-10 - COLONOSCOPY W/BX 07-07-15 - EGD W/O [facility] SPECIMEN W/BX 07-07-15 - HEART CATHETERIZATION 2008 with stents - PAST SURGICAL HISTORY OF 10/03/10 bilat lower extremity arteriogram with angioplasty - PAST SURGICAL HISTORY OF 03/09/10 Bilat lower ext arteriogram left pop and sup fem artery angioplasty - PAST SURGICAL HISTORY OF 09/14/05 bilat arteriogram with left pop manometry - PLACE CATH SUBSUBSELECT ART,ABD/PEL 09/14/05 - REM LESION NEC,HAND,SCAL<0.5CM 01/29/10 Exc. right infra-auricular lesion - REM LESION NEC,HAND,SCAL<0.5CM 12/10/13 EXc. right foot lesion - REPAIR ING HERNIA,5+Y/O,REDUCIBL 1963 Hernia repair, inguinal - REVSC OPN/PRG FEM/POP W/ANGIOPLASTY UNI 05-11-10 RIGHT POP - REVSC OPN/PRG FEM/POP W/ANGIOPLASTY UNI 02/17/08 right fem with angioplasty,catheter placed right pop,right sfa,LLE ateriogram - REVSC OPN/PRG FEM/POP W/ANGIOPLASTY UNI 11/26/07 L fem angio with stenting and smart stent placed - REVSC OPN/PRG FEM/POP W/ANGIOPLASTY UNI 07-17-11 left leg - REVSC OPN/PRQ FEM/POP W/[facility]HRC/[facility] 05-11-10 RIGHT SFA - REVSC OPN/PRQ TIB/NI W/ANGIOPLASTY [facility] 05-11-10 RIGHT - REVSC OPN/PRQ TIB/NI W/ANGIOPLASTY [facility] 01-09-14 - REVSC OPN/PRQ TIB/NI W/ATHRC/ANGIOP [facility] 07-03-11 right leg - REVSC OPN/PRQ TIB/NI W/ATHRC/[facility] 02-10-13 RIGHT FAMILY HISTORY FAMILY HISTORY Problem Relation Age of Onset - Heart Father - Hypertension Maternal Grandmother - GI Maternal Grandmother - Heart Paternal Grandfather - Cancer Mother lung - Cancer Sister Non hodgkins lymphoma - Diabetes Maternal Grandfather SOCIAL HISTORY Social History Substance Use Topics - Smoking status: Never Smoker - Smokeless tobacco: Never Used - Alcohol use Yes HOME MEDICATIONS TRULICITY 1.5 mg/0.5 mL pnij INJECT 1.5MG SUBCUTANEOUSLY ONCE EACH WEEK, DISCARD PEN AFTER losartan (COZAAR) 25 mg tablet Take 1 tablet by mouth once daily. isosorbide mononitrate ER (IMDUR) 60 mg 24 hr tablet Take 1 tablet by mouth once daily. carvedilol (COREG) 25 mg tablet Take 1 tablet by mouth twice daily with meals. insulin glargine (LANTUS U-100 INSULIN) 100 unit/mL injection Inject 30 Units subcutaneously daily at bedtime. Via Syringe atorvastatin (LIPITOR) 80 mg tablet Take 1 tablet by mouth once daily. HYDROcodone-acetaminophen (NORCO) 5-325 mg per tablet Take 1 tablet by mouth twice daily as needed for Pain for up to 30 days. HYDROcodone-acetaminophen (NORCO) 5-325 mg per tablet Take 1 tablet by mouth twice daily as needed for Pain for up to 30 days.Earliest Fill Date: 05/05/17 HYDROcodone-acetaminophen (NORCO) 5-325 mg per tablet Take 1 tablet by mouth twice daily as needed for Pain for up to 30 days.Earliest Fill Date: 06/02/17 amLODIPine (NORVASC) 10 mg tablet Take 1 tablet by mouth once daily. gemfibrozil (LOPID) 600 mg tablet Take 0.5 tablets by mouth twice daily. Hydrochlorothiazide 12.5 mg capsule TAKE 1 CAPSULE BY MOUTH ONCE DAILY clopidogrel (PLAVIX) 75 mg tablet Take 1 tablet by mouth once daily. Magnesium Oxide 500 mg cap Take 500 mg by mouth once daily. Insulin Syringe-Needle U-100 (BD INSULIN SYRINGE ULTRAFINE) 0.3 mL 31 gauge x 5/16 syrg 10 Units once daily. nitroglycerin sublingual (NITROSTAT) 0.4 mg SL tablet Dissolve 1 tablet under the tongue as needed. DISSOLVE ON TONGUE FOR CHEST PAIN. IF NO PAIN RELIEF, CALL 911 blood sugar diagnostic (FREESTYLE LITE STRIPS) test strip TEST BLOOD SUGAR ONCE DAILY. DX: E11.65. Insulin: No Cholecalciferol, Vitamin D3, 1,000 unit cap Take 1 capsule by mouth once daily. aspirin(ECOTRIN LOW STRENGTH 81 MG TAB) Take one(1) tablet daily. INPATIENT MEDICATIONS Current hospital medications: atorvastatin 80 mg tab(s) (LIPITOR) 80 mg ORAL DAILY [START ON 09/14/2017] losartan 25 mg tab(s) (COZAAR) 25 mg ORAL DAILY [START ON 09/14/2017] amLODIPine 10 mg tab(s) (NORVASC) 10 mg ORAL DAILY [START ON 09/14/2017] carvedilol 25 mg tab(s) (COREG) 25 mg ORAL BID w MEALS HYDROcodone 5 mg - acetaminophen 325 mg tablet (NORCO) 1 tablet ORAL q 6 H PRN aspirin, enteric coated 81 mg tab(s) (ASPIRIN, ENTERIC COATED) 81 mg ORAL DAILY [START ON 09/14/2017] isosorbide mononitrate ER 60 mg tab(s) (IMDUR) 60 mg ORAL DAILY dextrose 40 % 15 g 15 g ORAL PRN glucagon 1 mg injection (GLUCAGEN) 1 mg INTRAMUSCULAR PRN dextrose 50% in water 25 mL syringe 12.5 g INTRAVENOUS PRN acetaminophen 325-650 mg tab(s) (TYLENOL) 325-650 mg ORAL q 4 H PRN docusate sodium 100 mg cap(s) (COLACE) 100 mg ORAL BID PRN insulin lispro injection (rapid acting) (HumaLOG) SUBCUTANEOUS w MEALS insulin lispro injection (rapid acting) (HumaLOG) SUBCUTANEOUS AT BEDTIME insulin glargine 5 Units pen (long acting) (LANTUS SOLOSTAR, BASAGLAR KWIKPEN) 5 Units SUBCUTANEOUS AT BEDTIME ALLERGIES ALLERGIES Allergen Reactions - Adhesive Rash Redness to skin - Lisinopril Cough - Penicillins Unknown childhood REVIEW OF SYSTEMS Constitutional: No weight loss, malaise or fevers. HEENT: Negative for frequent or significant headaches Respiratory: Negative for cough, wheezing, or shortness of breath Cardiovascular: As above Gastrointestinal: Negative for abdominal discomfort, blood in stools or black stools or change in bowel habits Genitourinary: No history of dysuria, frequency, or incontinence Endocrine: Negative for cold or heat intolerance, polyuria, polydipsia and goiter Hematologic: Negative for prolonged bleeding, bruising easily or swollen nodes Neurologic: No history or headaches, syncope, paralysis, seizures or tremors Integumentary: Negative for lesions, rash, and itching. PHYSICAL EXAM BP 155/80 Pulse 73 Temp 36.6 ?C (97.8 ?F) (Oral) Resp 16 Ht 172.7 cm (5' 8) Wt 105.9 kg (233 lb 8 oz) SpO2 96% BMI 35.50 kg/m? NAD MMM Supple, no JVD CTAB RRR no mgr Soft, NT No edema Warm with intact skin DATA Laboratory: Cholesterol, Total (mg/dL) Date Value 02/11/2015 115 HDL Cholesterol (mg/dL) Date Value 02/11/2015 30 LDL Cholesterol (mg/dL) Date Value 02/11/2015 38 LDL (no units) Date Value 01/22/2017 74 Triglyceride (mg/dL) Date Value 02/11/2015 234 Hemoglobin A1C (%) Date Value 04/02/2016 9.5 02/11/2015 8.8 EKG: Tele: sinus rhythm Chest Radiograph: pending Echocardiogram: pending Stress Testing: Reviewed - ischemia pattern matched cor angio Cardiac Catheterization: ASSESSMENT AND PLAN 61M with CAD (prior PCI to RCA, rPDA and LAD), PAD with prior LLE stent, HNT, HLD, DMII, ARNOLDO who presents with severe 3v CAD here for consideration of CABG. He describes slowly progressive angina over the last several months. Despite presenting with AF with slow ventricular response, he spontaneously cardioverted to sinus rhythm with normal HR (70s). Reasonable to consider CABG with MAZE and possible SHAD exclusion. Plan: - admit to telemetry - echo pending - continue aspirin (hold P2Y12), statin. Continue BB - C uploaded in [employer] for review. Seems a reasonable candidate for CABG with MAZE; CTS consult. - will continue on heparin gtt for AF (currently sinus rhythm) Active Hospital Problems Diagnosis - Unstable angina (HCC) Increasing exertional chest pain s/p ELZA to rRCA 2.5x28mm Promus Premier EES on 02/11/15 - CAD (coronary artery disease) Cardiac cath LM: Short vessel with trivial disease. LAD: LAD has mild diffuse disease. Large diagonal branch has 40% mid-vessel stenosis. LCx: Mild diffuse disease. RCA: Dominant. Distal RCA has subtotal occlusion, which extends into PLV and PDA. PDA receives collateral flow from LCx. Impression: Severe obstructive disease involving distal RCA, proximal PDA and proximal PLV. Proceed to PCI of RCA, PDA and PLV. Successful PCI to the rPDA with a 2.5x28mm Promus Premier EES Cardiac cath on 02/11/2015 Noted to have coronary artery dissection during cath on 02/11. This was not amenable to corrective intervention unfortunately. Pt appears to completed infarct and has no further Chest pain EKG is unchanged and no arrhythmias on tele Plan On aspirin and plavix Coreg Nifedipine is at 30 mg daily with addition of nitrates nitrates ARB will have follow up at [facility] of titration and management of medications. Monitor symptoms. - HTN (hypertension) Home meds: nifedipine 60mg, losartan 25mg, carvedilol 3.125mg Given diabetes and CAD, should be on higher doses of losartan and carvedilol if can tolerate and hopefully wean down nifedipine. -Increase losartan to 50mg daily -On isordil 20mg tid currently which can be converted to Imdur as an outpatient -Cut nifedipine to 30mg daily. Ideally would discontinue nifedipine upon and only be on losartan, carvedilol and Imdur - Diabetes mellitus type 2 with peripheral artery disease (HCC) Home meds: Januvia, glimepiride, metformin Follow up endo - Peripheral arterial disease S/p multiple interventions cont medical tx - Hyperlipidemia Home med: atorvastatin. Case to be discussed with staff Rufino Dyson MD Pager [phone] (please see below for after hours communication) 09/13/2017 2:09 AM For communication after 5 pm on weekdays and after 12 pm on weekends, please page the following: - Clinical Cardiology patients on all floors: page [phone] - Other Cardiology patients on J5 and J6: page [phone] - Other Cardiology patients on J7 and J8: page [phone] Shira Pérez RN FR[employer]EL[employer]SI[employer]EN[employer] 09/14/2017 11:51 AM Addendum CONSULT HISTORY and PHYSICAL CARDIOTHORACIC SURGERY Consulting Service: Cardiothoracic Surgery Requesting Provider: [facility] Procurement Director, Dr. Francisca Nguyen Opinion/advice regarding: Pre-Op Open Heart Surgery Cardiothoracic Physician: Abel Torrez M.D. NAME: Noman Stone HEIGHT: 172.7 cm WEIGHT: 105.9 kg Intended Procedure: Isolated CABG REDO: No STS SCORE: pending Has this patient been previously evaluated for Open Heart Surgery for this condition? Yes, but refered to [facility] for surgical managment HPI: (4) This is a 61 year old male who presents in consultation for an opinion regarding treatment options for coronary artery disease. He is currently symptomatic presented to local ER with palpitations and chest tightness. Thereafter had abnormal cardiac stress test. Subsequently had LHC showed severe CAD. The EF by outside echo was normal. Transferred here for surgery. Mr. Noman Stone is a pleasant 61 year old man with IDDM, PAD S/P prior peripheral stent and cardiac stent on chronic use of Plavix since ' (last dose 09/11). History of premature family history of CAD, obesity, HTN and poorly documented paroxysmal AF. Given significant history CAD S/P cardiac stent 2011 and 2014 a Comorbidities include: IDDM,HTN, PAD, PVD, claudication, CAD PAST MEDICAL HISTORY: PAST MEDICAL HISTORY Diagnosis Date - Acute renal failure (HCC) - CAD (coronary artery disease) - Diabetes mellitus (HCC) 11/17/2010 - Essential hypertension, benign - GERD (gastroesophageal reflux disease) 11/17/2010 - H/O percutaneous transluminal coronary angioplasty - Hyperlipidemia - Low testosterone 12/12/2011 - Other and unspecified hyperlipidemia - PAD (peripheral artery disease) (HCC) - Paroxysmal atrial fibrillation (HCC) - Raynaud's syndrome - Shift work sleep disorder 05/03/2015 - Type 2 diabetes mellitus with stage 3 chronic kidney disease, with long-term current use of insulin (HCC) 12/09/2015 - Type II or unspecified type diabetes mellitus with peripheral circulatory disorders, uncontrolled(250.72) 08/28/2013 PAST SURGICAL HISTORY: PAST SURGICAL HISTORY Procedure Laterality Date - COLONOSCOP W/ OR W/O [facility] SPEC 04-12-10 - COLONOSCOPY W/BX 07-07-15 - EGD W/O [facility] SPECIMEN W/BX 07-07-15 - HEART CATHETERIZATION 2009 with stents - PAST SURGICAL HISTORY OF 10/03/10 bilat lower extremity arteriogram with angioplasty - PAST SURGICAL HISTORY OF 03/09/10 Bilat lower ext arteriogram left pop and sup fem artery angioplasty - PAST SURGICAL HISTORY OF 09/14/05 bilat arteriogram with left pop manometry - PLACE CATH SUBSUBSELECT ART,ABD/PEL 09/14/05 - REM LESION NEC,HAND,SCAL<0.5CM 01/29/10 Exc. right infra-auricular lesion - REM LESION NEC,HAND,SCAL<0.5CM 12/10/13 EXc. right foot lesion - REPAIR ING HERNIA,5+Y/O,REDUCIBL 1963 Hernia repair, inguinal - REVSC OPN/PRG FEM/POP W/ANGIOPLASTY [facility] 05-11-10 RIGHT POP - REVSC OPN/PRG FEM/POP W/ANGIOPLASTY [facility] 02/17/08 right fem with angioplasty,catheter placed right pop,right sfa,LLE ateriogram - REVSC OPN/PRG FEM/POP W/ANGIOPLASTY UNI 11/26/07 L fem angio with stenting and smart stent placed - REVSC OPN/PRG FEM/POP W/ANGIOPLASTY [facility] 07-17-11 left leg - REVSC OPN/PRQ FEM/POP W/ATHRC/ANGIOP [facility] 05-11-10 RIGHT SFA - REVSC OPN/PRQ TIB/NI W/ANGIOPLASTY [facility] 05-11-10 RIGHT - REVSC OPN/PRQ TIB/NI W/ANGIOPLASTY UNI 01-09-14 - REVSC OPN/PRQ TIB/NI W/ATHRC/ANGIOP [facility] 07-03-11 right leg - REVSC OPN/PRQ TIB/NI W/ATHRC/ANGIOP [facility] 02-10-13 RIGHT FAMILY HISTORY: FAMILY HISTORY Problem Relation Age of Onset - Heart Father - Hypertension Maternal Grandmother - GI Maternal Grandmother - Heart Paternal Grandfather - Cancer Mother lung - Cancer Sister Non hodgkins lymphoma - Diabetes Maternal Grandfather FAMILY HISTORY OF CAD: Yes SOCIAL HISTORY: Social History Substance Use Topics - Smoking status: Never Smoker - Smokeless tobacco: Never Used - Alcohol use Yes MEDICATIONS: Prior to Admission Medications: TRULICITY 1.5 mg/0.5 mL pnij INJECT 1.5MG SUBCUTANEOUSLY ONCE EACH WEEK, DISCARD PEN AFTER losartan (COZAAR) 25 mg tablet Take 1 tablet by mouth once daily. isosorbide mononitrate ER (IMDUR) 60 mg 24 hr tablet Take 1 tablet by mouth once daily. carvedilol (COREG) 25 mg tablet Take 1 tablet by mouth twice daily with meals. insulin glargine (LANTUS U-100 INSULIN) 100 unit/mL injection Inject 30 Units subcutaneously daily at bedtime. Via Syringe atorvastatin (LIPITOR) 80 mg tablet Take 1 tablet by mouth once daily. HYDROcodone-acetaminophen (NORCO) 5-325 mg per tablet Take 1 tablet by mouth twice daily as needed for Pain for up to 30 days. HYDROcodone-acetaminophen (NORCO) 5-325 mg per tablet Take 1 tablet by mouth twice daily as needed for Pain for up to 30 days.Earliest Fill Date: 05/05/17 HYDROcodone-acetaminophen (NORCO) 5-325 mg per tablet Take 1 tablet by mouth twice daily as needed for Pain for up to 30 days.Earliest Fill Date: 06/02/17 amLODIPine (NORVASC) 10 mg tablet Take 1 tablet by mouth once daily. gemfibrozil (LOPID) 600 mg tablet Take 0.5 tablets by mouth twice daily. Hydrochlorothiazide 12.5 mg capsule TAKE 1 CAPSULE BY MOUTH ONCE DAILY clopidogrel (PLAVIX) 75 mg tablet Take 1 tablet by mouth once daily. Magnesium Oxide 500 mg cap Take 500 mg by mouth once daily. Insulin Syringe-Needle U-100 (BD INSULIN SYRINGE ULTRAFINE) 0.3 mL 31 gauge x 5/16 syrg 10 Units once daily. nitroglycerin sublingual (NITROSTAT) 0.4 mg SL tablet Dissolve 1 tablet under the tongue as needed. DISSOLVE ON TONGUE FOR CHEST PAIN. IF NO PAIN RELIEF, CALL 911 blood sugar diagnostic (FREESTYLE LITE STRIPS) test strip TEST BLOOD SUGAR ONCE DAILY. DX: E11.65. Insulin: No Cholecalciferol, Vitamin D3, 1,000 unit cap Take 1 capsule by mouth once daily. aspirin(ECOTRIN LOW STRENGTH 81 MG TAB) Take one(1) tablet daily. Current hospital medications: atorvastatin 80 mg tab(s) (LIPITOR) 80 mg ORAL DAILY [START ON 09/14/2017] losartan 25 mg tab(s) (COZAAR) 25 mg ORAL DAILY HYDROcodone 5 mg - acetaminophen 325 mg tablet (NORCO) 1 tablet ORAL q 6 H PRN aspirin, enteric coated 81 mg tab(s) (ASPIRIN, ENTERIC COATED) 81 mg ORAL DAILY dextrose 40 % 15 g 15 g ORAL PRN glucagon 1 mg injection (GLUCAGEN) 1 mg INTRAMUSCULAR PRN dextrose 50% in water 25 mL syringe 12.5 g INTRAVENOUS PRN acetaminophen 325-650 mg tab(s) (TYLENOL) 325-650 mg ORAL q 4 H PRN docusate sodium 100 mg cap(s) (COLACE) 100 mg ORAL BID PRN insulin lispro injection (rapid acting) (HumaLOG) SUBCUTANEOUS w MEALS insulin lispro injection (rapid acting) (HumaLOG) SUBCUTANEOUS AT BEDTIME insulin glargine 5 Units pen (long acting) (LANTUS SOLOSTAR, BASAGLAR KWIKPEN) 5 Units SUBCUTANEOUS AT BEDTIME heparin iv infusion (STROKE NOMOGRAM) 25,000 units in NaCl 0.45% 250 mL PREMIX 0-3,000 Units/hr INTRAVENOUS CONTINUOUS isosorbide mononitrate ER 60 mg tab(s) (IMDUR) 60 mg ORAL DAILY carvedilol 25 mg tab(s) (COREG) 25 mg ORAL BID w MEALS amLODIPine 10 mg tab(s) (NORVASC) 10 mg ORAL DAILY ALLERGIES: ALLERGIES Allergen Reactions - Adhesive Rash Redness to skin - Lisinopril Cough - Penicillins Unknown childhood COMPLETE REVIEW OF SYSTEMS: (10) Review Of Systems GENERAL:Negative for malaise, significant weight loss and fever HEENT:Negative for frequent or significant headaches, significant changes in vision or vision problems, significant ear problems or hearing loss NECK:Negative for lumps, goiter, pain and significant neck swelling RESPIRATORY: Negative for cough, wheezing and shortness of breath CARDIOVASCULAR: ++ chest tightness and palpitation GASTROINTESTINAL: Negative for abdominal discomfort GENITOURINARY: Negative for dysuria, frequency and incontinence MUSCULOSKELETAL: Negative for joint pain or swelling, back pain, and muscle pain. NEUROLOGIC:Negative for focal numbness or weakness, headaches and dizziness. SKIN:Negative for lesions, rash, and itching. PSYCHIATRIC: Negative for sleep disturbance, mood disorder and recent psychosocial stressors. HEMATOLOGIC/LYMPHATIC/IMMUNOLOGIC:Negative for prolonged bleeding, bruising easily, and swollen nodes. Neuro: -numbness tinging focal deficits PHYSICAL EXAM: (8) BP 145/82 Pulse 81 Temp 36.8 ?C (98.2 ?F) (Oral) Resp 18 Ht 172.7 cm (5' 8) Wt 105.9 kg (233 lb 8 oz) SpO2 100% BMI 35.50 kg/m? Constitutional: Well developed, Well nourished and Obese HEENT: EOM's intact and Good dentition Resp: Clear and Respiratory effort: normal Cardiovascular: Regular rate AND rhythm and S1, S2 normal GI: Soft and Bowel sounds present Integumentary: Warm and No rash on chest, arms or legs Musculoskeletal: No deformities Neurological/Psychiatric: Oriented to time, place AND person , Alert, Oriented and No gross focal neurologic deficits Additional systems reviewed: No additional systems reviewed Labs: Invalid input(s): MBP Recent Labs 09/13/17 0326 WBC 10.01 HB 14.6 HCT 42.5 PLT 204 Recent Labs 09/13/17 0933 APTT 32.8* Recent Labs 09/13/17 0933 NA 137 K 4.6 CHLOR 97 CO2 29 BUN 15 CREAT 1.35* GLUC 184* ALKPHOS 53 ALT 23 AST 20 ALB 4.1 Cholesterol, Total 115 02/11/2015 HDL Cholesterol 30 02/11/2015 LDL Cholesterol 74 01/22/2017 DATA: I have personally reviewed the following data: Outside [facility]: 09/10/17- loaded to [employer]. severe multivessel disease (severe (85%) mid LAD, severe (85%) proximal OM2, and severe (85%) PDA stenosis) Echo: Exam indication: CAD - There is a resting wall motion abnormality in the territory of the RCA. - The left ventricle is small. There is mild concentric left ventricular hypertrophy. Left ventricular systolic function is normal. EF = 60 ? 5% (2D biplane) Grade I left ventricular diastolic dysfunction. The basal inferior segment is akinetic. The mid inferior segment is mildly hypokinetic. - The right ventricle is normal in size. Right ventricular systolic function is low normal. - RWMA in RCA territory, as seen on prior echo. - Exam was compared with the prior [facility] echocardiographic exam performed on 02/11/2015, similar findings. Conduit: Right hand dominant and remote wrist surgery (affected artery) Left PI: 62% good waveform. Impression: This is a 61 year old year-old male, who is being evaluated for surgical intervention of coronary artery disease. In consideration for surgery, the patient's acute and chronic medical issues have been evaluated as documented above and reviewed in the electronic medical record. Active Hospital Problems Diagnosis - Unstable angina (HCC) Increasing exertional chest pain s/p ELZA to rRCA 2.5x28mm Promus Premier EES on 02/11/15 - CAD (coronary artery disease) Cardiac cath LM: Short vessel with trivial disease. LAD: LAD has mild diffuse disease. Large diagonal branch has 40% mid-vessel stenosis. LCx: Mild diffuse disease. RCA: Dominant. Distal RCA has subtotal occlusion, which extends into PLV and PDA. PDA receives collateral flow from LCx. Impression: Severe obstructive disease involving distal RCA, proximal PDA and proximal PLV. Proceed to PCI of RCA, PDA and PLV. Successful PCI to the rPDA with a 2.5x28mm Promus Premier EES Cardiac cath on 02/11/2015 Noted to have coronary artery dissection during cath on 02/11. This was not amenable to corrective intervention unfortunately. Pt appears to completed infarct and has no further Chest pain EKG is unchanged and no arrhythmias on tele Plan On aspirin and plavix Coreg Nifedipine is at 30 mg daily with addition of nitrates nitrates ARB will have follow up at [facility] of titration and management of medications. Monitor symptoms. - HTN (hypertension) Home meds: nifedipine 60mg, losartan 25mg, carvedilol 3.125mg Given diabetes and CAD, should be on higher doses of losartan and carvedilol if can tolerate and hopefully wean down nifedipine. -Increase losartan to 50mg daily -On isordil 20mg tid currently which can be converted to Imdur as an outpatient -Cut nifedipine to 30mg daily. Ideally would discontinue nifedipine upon and only be on losartan, carvedilol and Imdur - Obesity, Class II, BMI 35-39.9 - Diabetes mellitus type 2 with peripheral artery disease (HCC) Home meds: katerina Everettpiride, metformin Follow up endo - Peripheral arterial disease S/p multiple interventions cont medical tx - Hyperlipidemia Home med: atorvastatin. Plan: Patient will be seen by the surgeon, Dr. Abel Torrez M.D.. On chronic Plavix therapy last dose 09/11. Will needs days off Plavix to allow wash -out. Before surgery the patient will need the following: Preop testing arranged. Anticipate completion by tomorrow Consider vascular surgery consult as patient has significant claudication, concern of wound healing if SVG conduit is used. Anticipated Discharge Needs: CM consult for placement and PT/OT/RT evalulation for anticipated Home Care needs These findings will be communicated back to the requesting provider electronically. 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 No Advance Directive: Current Advance Directive: None Yarn Packer Assisted with AD Completion: Yes Action: Education Provided (paperwork given) Health Literacy: 1. How often do you need to have someone help you when you read instructions, pamphlets, or other written material from your doctor or pharmacy? Never - 1 2. How confident are you filling out medical forms by yourself? Extremely - 1 If Patient scores > 3 on either question, the following interventions were put into place: Patient did not score > 3 FUNCTIONAL AND COGNITIVE/BEHAVIORAL PRIOR TO ADMISSION: Baseline Mental Status: Alert AND Oriented, Person, Place , Time and Situation Functional Status: Independent Does Patient Currently Receive Any Community Services or Home Care? None Equipment Prior to Admission: Bi-level Positive Airway Pressure/Continuous Positive Airway Pressure Glucometer Has the Patient Been in a Prison Facility in the Past 30 days? 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 No Caregiver Needed Patient's transition needs and plan for meeting these needs: return home Does the patient have an acute stroke diagnosis, or has the patient had a stroke during this admission? No Medication Adherence: I am convinced of the importance of my prescription medication: Agree completely - 0 I worry that my prescription medication will do more harm than good to me Disagree completely - 0 I feel financially burdened by my [id number] expenses for my prescription medication: Disagree completely - 0 Patient is categorized as low risk < 2 Are you interested in bedside delivery of your medications? No Food Concerns: In the Last Month, Have You had Trouble Getting Food? No trouble getting food During the Last Month, Have You Worried Whether Your Food Would Run Out Before You Had Enough Money to Buy More? No Is the Patient Psychosocially Complex? 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 Lives with spouse. Independent SHAKER OUT. Owns a glucometer and BiPAP, no other DME reported. Has transportation at discharge. Awaiting pre-op testing for [facility]. Discharge date and needs TBD. TCC/SW to follow. SIGNATURE: Crystal Cosme RN PATIENT NAME: Noman Stone DATE: September 13, 2017 TIME: 5:04 PM PAGER/CONTACT #: [phone] Previous Version RODOLFO Melchor, CT 09/13/2017 5:41 PM Signed Radiology Service Progress Note PATIENT NAME: Noman Stone DATE OF SERVICE: September 13, 2017 TIME: 5:36 PM PATIENT IDENTITY VERIFICATION COMPLETED USING TWO (2) METHODS: Patient confirmed name verbally and ID band matches.. PATIENT GENDER DATA: Male PATIENT RELEVANT IMPLANT DATA REVIEWED: Yes RADIOLOGY DEPARTMENT: CT; Exam(s) Completed: Cardiac PERIPHERAL IV DATA: Not applicable SIGNED BY: RODOLFO Melchor September 13, 2017 5:36 PM India Pa PA-C 09/14/2017 2:20 PM Signed [facility]IC[facility] PROGRESS NOTE (Template ID [id number]) Noman Stone [id number] PRIMARY SERVICE: Hvi Card Intervention HOSPITAL DAY: # 1 INTERVAL HISTORY CTS work up initiated Denies CP or SOB PHYSICAL EXAM BP 102/58 Pulse 73 Temp 36.9 ?C (98.5 ?F) (Oral) Resp 18 Ht 172.7 cm (5' 8) Wt 108.5 kg (239 lb 1.6 oz) SpO2 93% BMI 36.36 kg/m? Intake/Output Summary (Last 24 hours) at 09/14/17 1419 Last data filed at 09/14/17 1300 Gross per 24 hour Intake 596 ml Output 1325 ml Net -729 ml General Appearance: Obese and No acute distress HEENT: EOM's intact and no JVD Lungs: Clear Heart: Regular rate AND rhythm, S1, S2 normal, Vascular: Pulses - intact and no edema Abdomen: Soft, Round, Non-tender and Bowel sounds present Skin: Warm and Dry Musculoskeletal: No deformities Neurologic/Psychiatric: Oriented to time, place AND person MEDICATIONS Current hospital medications: atorvastatin 80 mg tab(s) (LIPITOR) 80 mg ORAL DAILY losartan 25 mg tab(s) (COZAAR) 25 mg ORAL DAILY HYDROcodone 5 mg - acetaminophen 325 mg tablet (NORCO) 1 tablet ORAL q 6 H PRN aspirin, enteric coated 81 mg tab(s) (ASPIRIN, ENTERIC COATED) 81 mg ORAL DAILY dextrose 40 % 15 g 15 g ORAL PRN glucagon 1 mg injection (GLUCAGEN) 1 mg INTRAMUSCULAR PRN dextrose 50% in water 25 mL syringe 12.5 g INTRAVENOUS PRN acetaminophen 325-650 mg tab(s) (TYLENOL) 325-650 mg ORAL q 4 H PRN docusate sodium 100 mg cap(s) (COLACE) 100 mg ORAL BID PRN insulin lispro injection (rapid acting) (HumaLOG) SUBCUTANEOUS w MEALS insulin lispro injection (rapid acting) (HumaLOG) SUBCUTANEOUS AT BEDTIME insulin glargine 5 Units pen (long acting) (LANTUS SOLOSTAR, BASAGLAR KWIKPEN) 5 Units SUBCUTANEOUS AT BEDTIME heparin iv infusion (STROKE NOMOGRAM) 25,000 units in NaCl 0.45% 250 mL PREMIX 0-3,000 Units/hr INTRAVENOUS CONTINUOUS isosorbide mononitrate ER 60 mg tab(s) (IMDUR) 60 mg ORAL DAILY carvedilol 25 mg tab(s) (COREG) 25 mg ORAL BID w MEALS amLODIPine 10 mg tab(s) (NORVASC) 10 mg ORAL DAILY DATA Recent Labs 09/14/17 0028 09/13/17 0326 WBC 9.47 10.01 HB 14.8 14.6 HCT 44.7 42.5 PLT 193 204 Recent Labs 09/14/17 0028 09/13/17 0933 NA 139 137 K 4.0 4.6 CO2 26 29 BUN 19 15 CREAT 1.32* 1.35* GLUC 99 184* MG 2.2 -- IMAGING reviewed ASSESSMENT AND PLAN 61M with CAD (prior PCI to RCA, rPDA and LAD), PAD with prior LLE stent, HNT, HLD, DMII, ARNOLDO who presents with severe 3v CAD here for consideration of CABG. He describes slowly progressive angina over the last several months. Despite presenting with AF with slow ventricular response, he spontaneously cardioverted to sinus rhythm with normal HR (70s). Reasonable to consider CABG with MAZE and possible SHAD exclusion. Plan: - admit to telemetry - echo pending - continue aspirin (hold P2Y12), statin. Continue BB - LHC uploaded in [employer] for review. Seems a reasonable candidate for CABG with MAZE; CTS consult. - will continue on heparin gtt for AF (currently sinus rhythm) Problem Cad (Coronary Artery Disease) History: S/p ELZA to rRCA 2.5x28mm Promus Premier EES on 02/11/15 c/b dissection during cath not amenable to corrective intervention. 09/11/2016 Developed palpitations, CE negative, Abnormal stress test. LHC at [facility] showed triple vessel disease. Transferred to [facility] for CABG eval. Last dose of Plavix 09/11/2016 Assessment: CP free OSH LHC uploaded into [employer]. Plan: ASA, IV heparin, Statin, BB, Imdur. Consult CTS. Peripheral arterial disease History: POA S/p multiple interventions Assessment: Pt reports he can not use IPCs due to poor circulartion peripheral pulses intact cont medical tx Plan: On heparin drip due to unstable angina. Check ABIs. 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 Range 04/01/2017 00:00 Hemoglobin A1C Latest Ref Range: 4.8 - 5.9 % 7.9 (A) Plan: recheck HGA1C, pt may take his own med Trulicity on Sunday. SS insulin. Htn (Hypertension) History: Home meds: Imdur 60mg, losartan 25mg, carvedilol 25mg BID, Norvasc 10mg., HCTZA 12.5mg Assessment: BP controlled. Plan: Continue home meds except for HCTZ, monitor need to titrate meds. Hyperlipidemia History: POA: Home med: atorvastatin. Assessment: no current cholesterol results Plan: Continue Lipitor 80mg, check Lipids. Obesity, Class II, Bmi 35-39.9 History: POA Assessment: Body mass index is 36.36 kg/m?. Plan: discussed wt loss. Chronic Low Back Pain History: present SHAKER OUT Assessment: Takes [place] Pt concerned post op laying flat will have a lot of pain Plan: Continue [place] and pt to discuss with anesthesia Case to be discussed with staff India Pa PA-C Pager [phone] (please see below for after hours communication) 09/14/2017 2:19 PM For communication after 5 pm on weekdays and after 12 pm on weekends, please page the following: - Clinical Cardiology patients on all floors: page [phone] - Other Cardiology patients on J5 and J6: page [phone] - Other Cardiology patients on J7 and J8: page [phone] Keith Kovacs DO, 09/15/2017 12:00 PM Addendum [facility] PROGRESS NOTE Noman Stone [id number] PRIMARY SERVICE: Intervention HOSPITAL DAY: # 1 INTERVAL HISTORY: No acute complaints HDS afebrile PHYSICAL EXAM: BP 113/66 Pulse 68 Temp 37.1 ?C (98.8 ?F) (Oral) Resp 18 Ht 172.7 cm (5' 8) Wt 108.5 kg (239 lb 1.6 oz) SpO2 94% BMI 36.36 kg/m? Intake/Output Summary (Last 24 hours) at 09/14/172106 Last data filed at 09/14/171911 Gross per 24 hour Intake 820 ml Output 1525 ml Net -705 ml General: NAD. HEENT: EOMI. No JVP Lungs: BCAL Heart: S1nl, S2nl.? no murmur. Abdomen: Soft, non-tender. Extremities: no peripheral edema bilaterally. Neuro: MAEW. Psych: Cooperative. MEDICATIONS: Current hospital medications: atorvastatin 80 mg tab(s) (LIPITOR) 80 mg ORAL DAILY losartan 25 mg tab(s) (COZAAR) 25 mg ORAL DAILY HYDROcodone 5 mg - acetaminophen 325 mg tablet (NORCO) 1 tablet ORAL q 6 H PRN aspirin, enteric coated 81 mg tab(s) (ASPIRIN, ENTERIC COATED) 81 mg ORAL DAILY dextrose 40 % 15 g 15 g ORAL PRN glucagon 1 mg injection (GLUCAGEN) 1 mg INTRAMUSCULAR PRN dextrose 50% in water 25 mL syringe 12.5 g INTRAVENOUS PRN acetaminophen 325-650 mg tab(s) (TYLENOL) 325-650 mg ORAL q 4 H PRN docusate sodium 100 mg cap(s) (COLACE) 100 mg ORAL BID PRN insulin lispro injection (rapid acting) (HumaLOG) SUBCUTANEOUS w MEALS insulin lispro injection (rapid acting) (HumaLOG) SUBCUTANEOUS AT BEDTIME insulin glargine 5 Units pen (long acting) (LANTUS SOLOSTAR, BASAGLAR KWIKPEN) 5 Units SUBCUTANEOUS AT BEDTIME heparin iv infusion (STROKE NOMOGRAM) 25,000 units in NaCl 0.45% 250 mL PREMIX 0-3,000 Units/hr INTRAVENOUS CONTINUOUS isosorbide mononitrate ER 60 mg tab(s) (IMDUR) 60 mg ORAL DAILY carvedilol 25 mg tab(s) (COREG) 25 mg ORAL BID w MEALS amLODIPine 10 mg tab(s) (NORVASC) 10 mg ORAL DAILY LABORATORY: Recent Labs 09/14/17 0028 09/13/17 0933 NA 139 137 K 4.0 4.6 CO2 26 29 ANION 13 11 BUN 19 15 CREAT 1.32* 1.35* GLUC 99 184* Recent Labs 09/14/17 0028 09/13/17 0326 HB 14.8 14.6 HCT 44.7 42.5 WBC 9.47 10.01 PLT 193 204 ASSESSMENT: 61M with CAD (prior PCI to RCA, rPDA and LAD), PAD with prior LLE stent, HNT, HLD, DMII, ARNOLDO who presents with severe 3v CAD here for consideration of CABG. He describes slowly progressive angina over the last several months. Despite presenting with AF with slow ventricular response, he spontaneously cardioverted to sinus rhythm with normal HR (70s). He is being considered for CABG with MAZE and possible SHAD exclusion. PLAN: Active Hospital Problems Diagnosis - CAD (coronary artery disease) History: S/p ELZA to rRCA 2.5x28mm Promus Premier EES on 02/11/15 c/b dissection during cath not amenable to corrective intervention. 09/11/2016 Developed palpitations, CE negative, Abnormal stress test. LHC at [facility] showed triple vessel disease. Transferred to [facility] for CABG eval. Last dose of Plavix 09/11/2016 Assessment: CP free OSH LHC uploaded into [employer]. Plan: ASA, IV heparin, Statin, BB, Imdur. CTS recs . - Peripheral arterial disease History: POA S/p multiple interventions, managed by vascular surgeon at OSH Bilateral claudication ABIs abnormal on the L side at rest Has never had chronic ulcers etc. Re concern for poor wound healing Plan: CTS vascular surgery consult? Call Sunday if CTS desires. 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 Range 04/01/2017 00:00 Hemoglobin A1C Latest Ref Range: 4.8 - 5.9 % 7.9 (A) Plan: SS insulin. - HTN (hypertension) History: Home meds: Imdur 60mg, losartan 25mg, carvedilol 25mg BID, Norvasc 10mg., HCTZA 12.5mg Plan: Continue home meds except for HCTZ, monitor need to titrate meds. - Hyperlipidemia History: POA: Home med: atorvastatin. Assessment: no current cholesterol results Plan: Continue Lipitor 80mg, - Obesity, Class II, BMI 35-39.9 History: POA Assessment: Body mass index is 36.36 kg/m?. Plan: discussed wt loss. - Chronic low back pain History: present SHAKER OUT Assessment: Takes [place] Pt concerned post op laying flat will have a lot of pain Plan: Continue [place] Case to be discussed with staff Jakob Eric MD, PhD Cardiovascular Medicine Fellow Pager [phone] (please see below for after hours communication) September 14, 2017 For communication after 5 pm on weekdays and after 12 pm on weekends, please page the following: - Clinical Cardiology patients on all floors: page [phone] - Other Cardiology patients on J5 and J6: page [phone] - Other Cardiology patients on J7 and J8: page [phone] Addendum: Pt admitted by transfer with unstable angina s/p LHC at an outside faciolity on 09/10/17. LHC revealed severe 3 VD. Being evaluated for CABG in the near future. Pt understands the plan. Keith Kovacs DO September 15, 2017 12:00 PM Previous Version Keith Kovacs DO, DO 09/16/2017 12:31 PM Addendum [facility] PROGRESS NOTE Noman Stone [id number] PRIMARY SERVICE: Intervention HOSPITAL DAY: # 3 INTERVAL HISTORY: No acute complaints HDS afebrile SCr a little bit elevated from baseline PHYSICAL EXAM: BP 119/75 Pulse 65 Temp 36.5 ?C (97.7 ?F) (Oral) Resp 16 Ht 172.7 cm (5' 8) Wt 104.8 kg (231 lb 0.7 oz) SpO2 97% BMI 35.13 kg/m? Intake/Output Summary (Last 24 hours) at 09/16/17 0633 Last data filed at 09/16/17 0600 Gross per 24 hour Intake 1000 ml Output 2300 ml Net -1300 ml General: NAD. HEENT: EOMI. No JVP Lungs: BCAL Heart: S1nl, S2nl.? no murmur. Abdomen: Soft, non-tender. Extremities: no peripheral edema bilaterally. Neuro: MAEW. Psych: Cooperative. MEDICATIONS: Current hospital medications: hydrocortisone topical cream 1% TOPICAL BID senna-docusate 8.6-50 mg 2 tablet (SENNA-S) 2 tablet ORAL BID polyethylene glycol 3350 17 g packet (MIRALAX, GLYCOLAX) 17 g ORAL DAILY atorvastatin 80 mg tab(s) (LIPITOR) 80 mg ORAL DAILY losartan 25 mg tab(s) (COZAAR) 25 mg ORAL DAILY HYDROcodone 5 mg - acetaminophen 325 mg tablet (NORCO) 1 tablet ORAL q 6 H PRN aspirin, enteric coated 81 mg tab(s) (ASPIRIN, ENTERIC COATED) 81 mg ORAL DAILY dextrose 40 % 15 g 15 g ORAL PRN glucagon 1 mg injection (GLUCAGEN) 1 mg INTRAMUSCULAR PRN dextrose 50% in water 25 mL syringe 12.5 g INTRAVENOUS PRN acetaminophen 325-650 mg tab(s) (TYLENOL) 325-650 mg ORAL q 4 H PRN docusate sodium 100 mg cap(s) (COLACE) 100 mg ORAL BID PRN insulin lispro injection (rapid acting) (HumaLOG) SUBCUTANEOUS w MEALS insulin lispro injection (rapid acting) (HumaLOG) SUBCUTANEOUS AT BEDTIME insulin glargine 5 Units pen (long acting) (LANTUS SOLOSTAR, BASAGLAR KWIKPEN) 5 Units SUBCUTANEOUS AT BEDTIME heparin iv infusion (STROKE NOMOGRAM) 25,000 units in NaCl 0.45% 250 mL PREMIX 0-3,000 Units/hr INTRAVENOUS CONTINUOUS isosorbide mononitrate ER 60 mg tab(s) (IMDUR) 60 mg ORAL DAILY carvedilol 25 mg tab(s) (COREG) 25 mg ORAL BID w MEALS amLODIPine 10 mg tab(s) (NORVASC) 10 mg ORAL DAILY ASSESSMENT: 61M with CAD (prior PCI to RCA, rPDA and LAD), PAD with prior LLE stent, HNT, HLD, DMII, ARNOLDO who presents with severe 3v CAD here for consideration of CABG. He describes slowly progressive angina over the last several months. Despite presenting with AF with slow ventricular response, he spontaneously cardioverted to sinus rhythm with normal HR (70s). He is being considered for CABG with MAZE and possible SHAD exclusion. PLAN: Active Hospital Problems Diagnosis - CAD (coronary artery disease) History: S/p ELZA to rRCA 2.5x28mm Promus Premier EES on 02/11/15 c/b dissection during cath not amenable to corrective intervention. 09/11/2016 Developed palpitations, CE negative, Abnormal stress test. LHC at [facility] showed triple vessel disease. Transferred to [facility] for CABG eval. Last dose of Plavix 09/11/2016 Assessment: CP free OSH LHC uploaded into [employer]. Plan: ASA, IV heparin, Statin, BB, Imdur. CTS recs . - Peripheral arterial disease History: POA S/p multiple interventions, managed by vascular surgeon at OSH Bilateral claudication ABIs abnormal on the L side at rest Has never had chronic ulcers etc. Re concern for poor wound healing Plan: CTS vascular surgery consult? Call Sunday if CTS desires. 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 Range 04/01/2017 00:00 Hemoglobin A1C Latest Ref Range: 4.8 - 5.9 % 7.9 (A) Plan: SS insulin. - HTN (hypertension) History: Home meds: Imdur 60mg, losartan 25mg, carvedilol 25mg BID, Norvasc 10mg., HCTZA 12.5mg Plan: Continue home meds except for HCTZ, monitor need to titrate meds. - Hyperlipidemia History: POA: Home med: atorvastatin. Assessment: no current cholesterol results Plan: Continue Lipitor 80mg, - Obesity, Class II, BMI 35-39.9 History: POA Assessment: Body mass index is 36.36 kg/m?. Plan: discussed wt loss. - Chronic low back pain History: present SHAKER OUT Assessment: Takes [place] Pt concerned post op laying flat will have a lot of pain Plan: Continue [place] - Chronic Kidney disease Likely 2/2 to Diabetes/HTN --monitor kidney function, if function continues to decline consider Vu work up and holding ARB Case to be discussed with staff Jakob Eric MD, PhD Cardiovascular Medicine Fellow Pager [phone] (please see below for after hours communication) September 16, 2017 ? Addendum: Pt admitted by transfer with unstable angina s/p LHC at an outside faciolity on 09/10/17. LHC revealed severe 3 VD. Being evaluated for CABG in the near future. Pt understands the plan. Keith Kovacs DO September 16, 2017 12:30 PM For communication after 5 pm on weekdays and after 12 pm on weekends, please page the following: - Clinical Cardiology patients on all floors: page [phone] - Other Cardiology patients on J5 and J6: page [phone] - Other Cardiology patients on J7 and J8: page [phone] Previous Version India Pa PA-C 09/17/2017 12:33 PM Signed [facility] CARDI[facility]ASCULAR [facility]ICINE PROGRESS NOTE (Template ID [id number]) Noman Stone [id number] PRIMARY SERVICE: Hvi Card Intervention HOSPITAL DAY: # 4 INTERVAL HISTORY CTS work up continues PHYSICAL EXAM BP 102/61 Pulse 69 Temp 36.3 ?C (97.3 ?F) (Oral) Resp 18 Ht 172.7 cm (5' 8) Wt 104.9 kg (231 lb 4.2 oz) SpO2 93% BMI 35.16 kg/m? Intake/Output Summary (Last 24 hours) at 09/17/17 1224 Last data filed at 09/17/17 0900 Gross per 24 hour Intake 1232 ml Output 1350 ml Net -118 ml General Appearance: Well developed and No distress HEENT: EOM's intact and no JVD Lungs: Clear Heart: Regular rate AND rhythm, S1, S2 normal, Vascular: Pulses - intact and no edema noted Abdomen: Soft, Round, Non-tender and Bowel sounds present Skin: Warm, Dry and rt groin puncture site is healing well. Musculoskeletal: No deformities Neurologic/Psychiatric: Oriented to time, place AND person MEDICATIONS Current hospital medications: hydrocortisone topical cream 1% TOPICAL BID senna-docusate 8.6-50 mg 2 tablet (SENNA-S) 2 tablet ORAL BID polyethylene glycol 3350 17 g packet (MIRALAX, GLYCOLAX) 17 g ORAL DAILY atorvastatin 80 mg tab(s) (LIPITOR) 80 mg ORAL DAILY HYDROcodone 5 mg - acetaminophen 325 mg tablet (NORCO) 1 tablet ORAL q 6 H PRN aspirin, enteric coated 81 mg tab(s) (ASPIRIN, ENTERIC COATED) 81 mg ORAL DAILY dextrose 40 % 15 g 15 g ORAL PRN glucagon 1 mg injection (GLUCAGEN) 1 mg INTRAMUSCULAR PRN dextrose 50% in water 25 mL syringe 12.5 g INTRAVENOUS PRN acetaminophen 325-650 mg tab(s) (TYLENOL) 325-650 mg ORAL q 4 H PRN docusate sodium 100 mg cap(s) (COLACE) 100 mg ORAL BID PRN insulin lispro injection (rapid acting) (HumaLOG) SUBCUTANEOUS w MEALS insulin lispro injection (rapid acting) (HumaLOG) SUBCUTANEOUS AT BEDTIME insulin glargine 5 Units pen (long acting) (LANTUS SOLOSTAR, BASAGLAR KWIKPEN) 5 Units SUBCUTANEOUS AT BEDTIME heparin iv infusion (STROKE NOMOGRAM) 25,000 units in NaCl 0.45% 250 mL PREMIX 0-3,000 Units/hr INTRAVENOUS CONTINUOUS isosorbide mononitrate ER 60 mg tab(s) (IMDUR) 60 mg ORAL DAILY carvedilol 25 mg tab(s) (COREG) 25 mg ORAL BID w MEALS amLODIPine 10 mg tab(s) (NORVASC) 10 mg ORAL DAILY DATA Recent Labs 09/17/17 0405 09/16/17 0531 09/15/17 0639 WBC 9.98 9.44 8.75 HB 14.1 14.8 14.4 HCT 43.0 45.1 43.2 PLT 189 180 190 Recent Labs 09/17/17 0405 09/16/17 0803 NA 136 137 K 4.0 4.0 CO2 25 26 BUN 17 17 CREAT 1.49* 1.49* GLUC 171* 131* IMAGING Reviewed ASSESSMENT AND PLAN 61M with CAD (prior PCI to RCA, rPDA and LAD), PAD with prior LLE stent, HNT, HLD, DMII, ARNOLDO who presents with severe 3v CAD here for consideration of CABG. He describes slowly progressive angina over the last several months. Despite presenting with AF with slow ventricular response, he spontaneously cardioverted to sinus rhythm with normal HR (70s). Reasonable to consider CABG with MAZE and possible SHAD exclusion. Plan: - admit to telemetry - echo pending - continue aspirin (hold P2Y12), statin. Continue BB - LHC uploaded in [employer] for review. Seems a reasonable candidate for CABG with MAZE; CTS consult. - will continue on heparin gtt for AF (currently sinus rhythm) Problem Cad (Coronary Artery Disease) History: S/p ELZA to rRCA 2.5x28mm Promus Premier EES on 02/11/15 c/b dissection during cath not amenable to corrective intervention. 09/11/2016 Developed palpitations, CE negative, Abnormal stress test. LHC at [facility] showed triple vessel disease. Transferred to F for CABG eval. Last dose of Plavix 09/11/2016 Assessment: CP free OSH LHC uploaded into [employer]. Plan: ASA, IV heparin, Statin, BB, Imdur. Consulted CTS, Dr Zapata reviewing information, surgery date pending. Peripheral arterial disease History: POA S/p multiple interventions Assessment: Pt reports he can not use IPCs due to poor circulartion peripheral pulses intact cont medical tx ABIs: Rt normal at rest. Lt mild disease at rest Plan: On heparin drip due to unstable angina. 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 Range 04/01/2017 00:00 Hemoglobin A1C Latest Ref Range: 4.8 - 5.9 % 7.9 (A) Plan: recheck HGA1C, pt may take his own med Trulicity on Sunday. SS insulin.. Htn (Hypertension) History: Home meds: Imdur 60mg, losartan 25mg, carvedilol 25mg BID, Norvasc 10mg., HCTZA 12.5mg Assessment: BP controlled. 09/17/2017 Held losartan due to worsening renal function Plan: Continue home meds except for losartan and HCTZ, monitor need to titrate meds.. Renal Insufficiency History: POA, baseline creat is 1.3 Assessment: 09/16/17 increase in creat to 1.49 09/17/2017 creat 1.49 Plan: DC losartan, get renal US. Monitor Creat Case to be discussed with staff India Pa PA-C Pager [phone] (please see below for after hours communication) 09/17/2017 12:24 PM For communication after 5 pm on weekdays and after 12 pm on weekends, please page the following: - Clinical Cardiology patients on all floors: page [phone] - Other Cardiology patients on J5 and J6: page [phone] - Other Cardiology patients on J7 and J8: page [phone] Shira Pérez RN FRUIT PEELER.ASSISTANT STRENGTH COACH 09/17/2017 1:21 PM Signed [facility] VASCULAR [facility] PROGRESS NOTE Noman Stone [id number] CTS staff Dr. Abel Torrez Intended surgery: CABG MAZE LAAL (has well documented PAF with slow HR. Preop testing in progress- needs vascular surgery consult, due to claudication and severe PVD- concern about wound healing if SV is harvested. Patient is ambulatory, family in the room. Denies chest pain. Questions answered. I have updated Dr. Torrez and CTS wire inspector. Last dose of Plavix 09/11 ASSESSMENT AND PLAN: Problem Preop Testing [facility] VASC[facility] PRE-OP CHECKLIST Surgeon: Abel Torrez M.D. Informed Consent Completed: No STS Score: CABG MAZE LAAL (documented PAF) CAD: Yes - CAD on Problem List: Yes Is intended procedure a CABG: Yes - is a beta nico ordered? Yes H AND P completed: Yes PA/LAT: Completed CT: Completed MRI: N/A LE US: Completed Cath: Yes - reviewed: Yes Echo:Completed EKG: Completed EF %: mnormal PI's: Completed good left PI: > 67%. Carotid: Completed Mapping: Completed Dental: N/A PFT's: N/A CBC, Coags, BMP, Mg, Phos Recent Labs 09/17/17 0405 09/16/17 0803 09/16/17 0531 09/15/17 2145 09/15/17 0639 WBC 9.98 -- 9.44 -- -- 8.75 HB 14.1 -- 14.8 -- -- 14.4 HCT 43.0 -- 45.1 -- -- 43.2 PLT 189 -- 180 -- -- 190 APTT 72.3* -- 60.4* 53.3* < > 72.0* NA 136 137 -- -- -- -- K 4.0 4.0 -- -- -- -- CHLOR 95* 99 -- -- -- -- CO2 25 26 -- -- -- -- BUN 17 17 -- -- -- -- CREAT 1.49* 1.49* -- -- -- -- GLUC 171* 131* -- -- -- -- CA 9.5 9.4 -- -- -- -- < > = values in this interval not displayed. UA: Normal HCG:N/A ABO/ABO Confirmed: Yes Blood ordered: Yes SA Swab: Yes - results: Negative Last Dose of Anticoagulation: Plavix and Heparin Op Note: No Pacemaker Check: No Implants: no Consults: vascular surgery, Endocrine DM: Yes Cardiac Surgical prep: Yes SIGNATURE: Shira Pérez RN FRUIT PEELER.ASSISTANT STRENGTH COACH CHECKED BY: DATE of SERVICE: 09/17/2017 TIME of SERVICE: 1:13 PM [] SIGNATURE: Shira Pérez RN FRUIT PEELER.ASSISTANT STRENGTH COACH PAGER: [phone] DATE of SERVICE: 09/17/2017 TIME of SERVICE: 1:21 PM Yu Ambrosio MD, MD 09/19/2017 7:22 AM Addendum [facility] INITIAL CONSULT Service Date: 09/17/2017 Admit Date: 09/13/2017 Service Time: 2:05 PM LOS: 4 Requesting Provider: Cardiology Vascular Physician: Yu Ambrosio MD Subjective Chief Complaint: Angina HPI: Noman Stone is a 61 year old White male referred by cardiology for an opinion regarding management of PVD prior to CABG. He has history of multiple percutaneous interventions in the lower extremities, including LLE stents in SFA x2 and atherectomy in the RLE, all years ago (outside hospital). No recent change in his complaints, has claudication (0.25-0.5 miles). Planned for CABG by cardiology, vascular surgery consulted to assess for wound healing after vein harvest. Location: lower Quality: chronic Severity: moderate Duration: >5 years PAST MEDICAL HISTORY Diagnosis Date - Acute renal failure (HCC) - CAD (coronary artery disease) - Diabetes mellitus (HCC) 11/17/2010 - Essential hypertension, benign - GERD (gastroesophageal reflux disease) 11/17/2010 - H/O percutaneous transluminal coronary angioplasty - Hyperlipidemia - Low testosterone 12/12/2011 - Other and unspecified hyperlipidemia - PAD (peripheral artery disease) ([facility]) - Paroxysmal atrial fibrillation (HCC) - Raynaud's syndrome - Shift work sleep disorder 05/03/2015 - Type 2 diabetes mellitus with stage 3 chronic kidney disease, with long-term current use of insulin ([facility]) 12/09/2015 - Type II or unspecified type diabetes mellitus with peripheral circulatory disorders, uncontrolled(250.72) 08/28/2013 PAST SURGICAL HISTORY Procedure Laterality Date - COLONOSCOP W/ OR W/O [facility] SPEC 04-12-10 - COLONOSCOPY W/BX 07-07-15 - EGD W/O [facility] SPECIMEN W/BX 07-07-15 - HEART CATHETERIZATION 2008 with stents - PAST SURGICAL HISTORY OF 10/03/10 bilat lower extremity arteriogram with angioplasty - PAST SURGICAL HISTORY OF 03/09/10 Bilat lower ext arteriogram left pop and sup fem artery angioplasty - PAST SURGICAL HISTORY OF 09/14/05 bilat arteriogram with left pop manometry - PLACE CATH SUBSUBSELECT ART,ABD/PEL 09/14/05 - REM LESION NEC,HAND,SCAL<0.5CM 01/29/10 Exc. right infra-auricular lesion - REM LESION NEC,HAND,SCAL<0.5CM 12/10/13 EXc. right foot lesion - REPAIR ING HERNIA,5+Y/O,REDUCIBL 1963 Hernia repair, inguinal - REVSC OPN/PRG FEM/POP W/[facility]IOPLASTY [facility] 05-11-10 RIGHT POP - REVSC OPN/PRG FEM/POP W/ANGIOPLASTY [facility] 02/17/08 right fem with angioplasty,catheter placed right pop,right sfa,LLE ateriogram - REVSC OPN/PRG FEM/POP W/ANGIOPLASTY [facility] 11/26/07 L fem angio with stenting and smart stent placed - REVSC OPN/PRG FEM/POP W/ANGIOPLASTY [facility] 07-17-11 left leg - REVSC OPN/PRQ FEM/POP W/ATHRC/ANGIOP [facility] 05-11-10 RIGHT SFA - REVSC OPN/PRQ TIB/NI W/ANGIOPLASTY [facility] 05-11-10 RIGHT - REVSC OPN/PRQ TIB/NI W/ANGIOPLASTY [facility] 01-09-14 - REVSC OPN/PRQ TIB/NI W/ATHRC/ANGIOP [facility] 07-03-11 right leg - REVSC OPN/PRQ TIB/NI W/ATHRC/ANGIOP [facility] 02-10-13 RIGHT FAMILY HISTORY Problem Relation Age of Onset - Heart Father - Hypertension Maternal Grandmother - GI Maternal Grandmother - Heart Paternal Grandfather - Cancer Mother lung - Cancer Sister Non hodgkins lymphoma - Diabetes Maternal Grandfather Social History Substance Use Topics - Smoking status: Never Smoker - Smokeless tobacco: Never Used - Alcohol use Yes Prescriptions Prior to Admission: TRULICITY 1.5 mg/0.5 mL pnij INJECT 1.5MG SUBCUTANEOUSLY ONCE EACH WEEK, DISCARD PEN AFTER Disp: 12 Pen Rfl: 3 losartan (COZAAR) 25 mg tablet Take 1 tablet by mouth once daily. Disp: 30 tablet Rfl: 11 isosorbide mononitrate ER (IMDUR) 60 mg 24 hr tablet Take 1 tablet by mouth once daily. Disp: 90 tablet Rfl: 3 carvedilol (COREG) 25 mg tablet Take 1 tablet by mouth twice daily with meals. Disp: 180 tablet Rfl: 3 insulin glargine (LANTUS U-100 INSULIN) 100 unit/mL injection Inject 30 Units subcutaneously daily at bedtime. Via Syringe Disp: 3 Vial Rfl: 3 atorvastatin (LIPITOR) 80 mg tablet Take 1 tablet by mouth once daily. Disp: 90 tablet Rfl: 3 HYDROcodone-acetaminophen (NORCO) 5-325 mg per tablet Take 1 tablet by mouth twice daily as needed for Pain for up to 30 days. Disp: 60 tablet Rfl: 0 HYDROcodone-acetaminophen (NORCO) 5-325 mg per tablet Take 1 tablet by mouth twice daily as needed for Pain for up to 30 days.Earliest Fill Date: 05/05/17 Disp: 60 tablet Rfl: 0 HYDROcodone-acetaminophen (NORCO) 5-325 mg per tablet Take 1 tablet by mouth twice daily as needed for Pain for up to 30 days.Earliest Fill Date: 06/02/17 Disp: 60 tablet Rfl: 0 amLODIPine (NORVASC) 10 mg tablet Take 1 tablet by mouth once daily. Disp: 30 tablet Rfl: 11 gemfibrozil (LOPID) 600 mg tablet Take 0.5 tablets by mouth twice daily. Disp: 90 tablet Rfl: 3 Hydrochlorothiazide 12.5 mg capsule TAKE 1 CAPSULE BY MOUTH ONCE DAILY Disp: 30 capsule Rfl: 3 clopidogrel (PLAVIX) 75 mg tablet Take 1 tablet by mouth once daily. Disp: 90 tablet Rfl: 3 Magnesium Oxide 500 mg cap Take 500 mg by mouth once daily. Disp: Rfl: 0 Insulin Syringe-Needle U-100 (BD INSULIN SYRINGE ULTRAFINE) 0.3 mL 31 gauge x 5/16 syrg 10 Units once daily. Disp: 100 Syringe Rfl: 11 nitroglycerin sublingual (NITROSTAT) 0.4 mg SL tablet Dissolve 1 tablet under the tongue as needed. DISSOLVE ON TONGUE FOR CHEST PAIN. IF NO PAIN RELIEF, CALL 911 Disp: 25 tablet Rfl: 6 blood sugar diagnostic (FREESTYLE LITE STRIPS) test strip TEST BLOOD SUGAR ONCE DAILY. DX: E11.65. Insulin: No Disp: 100 Strip Rfl: 3 Cholecalciferol, Vitamin D3, 1,000 unit cap Take 1 capsule by mouth once daily. (Patient taking differently: Take 5,000 Units by mouth once daily.) Disp: Rfl: 0 aspirin(ECOTRIN LOW STRENGTH 81 MG TAB) Take one(1) tablet daily. Disp: Rfl: 0 Current hospital medications: hydrocortisone topical cream 1% TOPICAL BID senna-docusate 8.6-50 mg 2 tablet (SENNA-S) 2 tablet ORAL BID polyethylene glycol 3350 17 g packet (MIRALAX, GLYCOLAX) 17 g ORAL DAILY atorvastatin 80 mg tab(s) (LIPITOR) 80 mg ORAL DAILY HYDROcodone 5 mg - acetaminophen 325 mg tablet (NORCO) 1 tablet ORAL q 6 H PRN aspirin, enteric coated 81 mg tab(s) (ASPIRIN, ENTERIC COATED) 81 mg ORAL DAILY dextrose 40 % 15 g 15 g ORAL PRN glucagon 1 mg injection (GLUCAGEN) 1 mg INTRAMUSCULAR PRN dextrose 50% in water 25 mL syringe 12.5 g INTRAVENOUS PRN acetaminophen 325-650 mg tab(s) (TYLENOL) 325-650 mg ORAL q 4 H PRN docusate sodium 100 mg cap(s) (COLACE) 100 mg ORAL BID PRN insulin lispro injection (rapid acting) (HumaLOG) SUBCUTANEOUS w MEALS insulin lispro injection (rapid acting) (HumaLOG) SUBCUTANEOUS AT BEDTIME insulin glargine 5 Units pen (long acting) (LANTUS SOLOSTAR, BASAGLAR KWIKPEN) 5 Units SUBCUTANEOUS AT BEDTIME heparin iv infusion (STROKE NOMOGRAM) 25,000 units in NaCl 0.45% 250 mL PREMIX 0-3,000 Units/hr INTRAVENOUS CONTINUOUS isosorbide mononitrate ER 60 mg tab(s) (IMDUR) 60 mg ORAL DAILY carvedilol 25 mg tab(s) (COREG) 25 mg ORAL BID w MEALS amLODIPine 10 mg tab(s) (NORVASC) 10 mg ORAL DAILY ALLERGIES Allergen Reactions - Adhesive Rash Redness to skin - Lisinopril Cough - Penicillins Unknown childhood COMPLETE REVIEW OF SYSTEMS CONSTITUTIONAL: No weight loss, malaise or fevers. HEENT: Negative for frequent or significant headaches, No changes in hearing or vision, no nose bleeds or other nasal problems. RESPIRATORY: Negative for cough, wheezing, or shortness of breath CARDIOVASCULAR: Positive for chest pain at rest GI: Negative for abdominal discomfort, blood in stools or black stools or change in bowel habits. : No history of dysuria, frequency, or incontinence and No difficulty urination, nocturia >1 times per night or hematuria. MUSCULOSKELETAL: Positive for claudication, see HPI ENDOCRINE: Negative for cold or heat intolerance, polyuria, polydipsia and goiter HEMATOLOGIC/LYMPHATIC: Negative for prolonged bleeding, bruising easily or swollen nodes. NEUROLOGIC: No history or headaches, syncope, paralysis, seizures or tremors. INTEGUMENTARY: Negative for lesions, rash, and itching. Objective PHYSICAL EXAM Physical Exam Performed Patient Vitals for the past 24 hrs: BP Temp Temp src Pulse Resp SpO2 Weight 09/17/17 1043 102/61 36.3 ?C (97.3 ?F) Oral 69 18 93 % - 09/17/17 0814 113/72 - - 63 - - - 09/17/17 0649 111/65 36.6 ?C (97.9 ?F) Oral 60 18 93 % - 09/17/17 0600 - - - - - - 104.9 kg (231 lb 4.2 oz) 09/17/17 0233 116/77 36.6 ?C (97.8 ?F) Oral 62 18 93 % - 09/16/17 2251 109/71 36.7 ?C (98 ?F) Oral 62 18 95 % - 09/16/17 1847 115/71 36.8 ?C (98.3 ?F) Oral 65 18 92 % - 09/16/17 1741 106/65 - - 66 - - - 09/16/17 1549 119/68 36.7 ?C (98 ?F) Oral 64 18 92 % - Intake/Output Summary (Last 24 hours) at 09/17/17 1813 Last data filed at 09/17/17 0900 Gross per 24 hour Intake 752 ml Output 1050 ml Net -298 ml CONSTITUTIONAL: Well developed and Well nourished NEUROLOGIC/PSYCHIATRIC: Oriented to time, place AND person and Alert HEENT: PERRLA and EOM's intact LUNGS: Clear HEART: S1, S2 normal ABDOMEN: Soft and Non-tender INTEGUMENTARY: Wound - No SURGICAL SITES: None MUSCULOSKELETAL: No joint deformities Pulses/Signals: Carotid Brachial Radial Ulnar Femoral Popliteal Dorsalis Pedis Posterior Tibial Peroneal Right Palpable +2 Palpable +2 Palpable +2 Palpable +2 Palpable +2 Biphasic Signal Palpable +1 Biphasic Signal Biphasic Signal Left Palpable +2 Palpable +2 Palpable +2 Palpable +2 Palpable +2 Biphasic Signal Biphasic Signal Palpable +1 Biphasic Signal Does the patient have critical limb ischemia, rest pain, tissue loss or gangrene?: No DATA: Laboratory: Recent Labs 09/17/17 0405 09/16/17 0531 09/15/17 0639 WBC 9.98 9.44 8.75 HB 14.1 14.8 14.4 HCT 43.0 45.1 43.2 PLT 189 180 190 Recent Labs 09/17/17 0405 09/16/17 0803 NA 136 137 K 4.0 4.0 BUN 17 17 CREAT 1.49* 1.49* GLUC 171* 131* Recent Labs 09/17/17 0405 09/16/17 0531 09/15/17 2145 APTT 72.3* 60.4* 53.3* Radiology: NIKKI 09/13/17 RIGHT SIDE ? Resting right ankle brachial index: 1.04 ? Normal ankle brachial index at rest in the right leg. ? Right ankle: Normal at rest. ? LEFT SIDE ? Resting left ankle brachial index: 0.89 ? Abnormal ankle brachial index at rest diagnostic of peripheral artery disease. ? Left ankle: Mild disease at rest. I have personally reviewed the following images/data: PVR Impression/Recommendations Impression: Stable PVD with normal/near-normal NIKKI. No acute symptoms. At risk for wound complications after vein harvesting, which was discussed with the patient. However, no role for any intervention prior to CABG. Plan: -Can proceed with CABG per Cardiology/Cardiac Surgery -Formal PVRs to assess level of disease (do not need to postpone surgery for this). Seen with Dr. Ambrosio Problem Peripheral arterial disease History : POA S/p multiple interventions Assessment: Pt reports he can not use IPCs due to poor circulartion peripheral pulses intact cont medical tx ABIs: Rt normal at rest. Lt mild disease at rest Plan: On heparin drip due to unstable angina. SIGNATURE: Dale Graf MD PATIENT NAME: Noman Stone DATE: September 17, 2017 TIME: 1:52 PM PAGER/CONTACT #: [id number] [facility] STAFF PHYSICIAN NOTE OF PERSONAL INVOLVEMENT IN CARE IMPRESSION: Patient is a 61 year old male with 1/2 mile claudication. His NIKKI/PVR are adequate. PLAN: No acute surgical intervention needed for claudication. Continue exercise as needed. Continue antiplatelet therapy. Continue statin therapy. I have reviewed the documentation obtained and documented by the Resident and have reviewed and updated the problem list as appropriate. I have personally performed a face to face assessment of the patient and have personally participated in the mccullough components. I have discussed the case and management of the patient's care. STAFF PHYSICIAN: Yu Ambrosio MD DATE OF SERVICE: September 19, 2017 TIME OF SERVICE: 7:20 AM Previous Version Linnea Simmons RN, RN 09/18/2017 12:26 PM Signed CARE MANAGEMENT PROGRESS NOTE SERVICE DATE: 09/18/2017 SERVICE TIME: 12:24 pm LOS: 5 days Needs Prior to Discharge: To Be Determined Patient continues work-up and consults prior to intendend OHS for CABG< SHERRY GUEVARA. No surgery date at this time. Unable to determine discharge needs at this time. CM will continue to follow medical course for discharge planning and needs post surgery. SIGNATURE: Linnea Simmons RN PATIENT NAME: Noman Stone DATE: September 18, 2017 TIME: 12:24 PM PAGER/CONTACT #: [phone] India Pa PA-C 09/18/2017 1:05 PM Signed [facility]ICINE PROGRESS NOTE (Template ID [id number]) Noman Stone [id number] PRIMARY SERVICE: Hvi Card Intervention HOSPITAL DAY: # 5 INTERVAL HISTORY CTS work up continues. Denies CP or SOB. PHYSICAL EXAM BP 104/66 Pulse 71 Temp 36.7 ?C (98 ?F) (Oral) Resp 18 Ht 172.7 cm (5' 8) Wt 105.1 kg (231 lb 11.2 oz) SpO2 93% BMI 35.23 kg/m? Intake/Output Summary (Last 24 hours) at 09/18/17 1301 Last data filed at 09/18/17 1000 Gross per 24 hour Intake 540 ml Output 2000 ml Net -1460 ml General Appearance: No acute distress HEENT: EOM's intact Lungs: Clear Heart: Regular rate AND rhythm, S1, S2 normal, Vascular: Pulses - intact and no edema Abdomen: Soft, Round, Non-tender and Bowel sounds present Skin: Warm, Dry and rt radial puncture site is healing well without redness, drainage or edema Musculoskeletal: No deformities Neurologic/Psychiatric: Oriented to time, place AND person MEDICATIONS Current hospital medications: hydrocortisone topical cream 1% TOPICAL BID senna-docusate 8.6-50 mg 2 tablet (SENNA-S) 2 tablet ORAL BID polyethylene glycol 3350 17 g packet (MIRALAX, GLYCOLAX) 17 g ORAL DAILY atorvastatin 80 mg tab(s) (LIPITOR) 80 mg ORAL DAILY HYDROcodone 5 mg - acetaminophen 325 mg tablet (NORCO) 1 tablet ORAL q 6 H PRN aspirin, enteric coated 81 mg tab(s) (ASPIRIN, ENTERIC COATED) 81 mg ORAL DAILY dextrose 40 % 15 g 15 g ORAL PRN glucagon 1 mg injection (GLUCAGEN) 1 mg INTRAMUSCULAR PRN dextrose 50% in water 25 mL syringe 12.5 g INTRAVENOUS PRN acetaminophen 325-650 mg tab(s) (TYLENOL) 325-650 mg ORAL q 4 H PRN docusate sodium 100 mg cap(s) (COLACE) 100 mg ORAL BID PRN insulin lispro injection (rapid acting) (HumaLOG) SUBCUTANEOUS w MEALS insulin lispro injection (rapid acting) (HumaLOG) SUBCUTANEOUS AT BEDTIME insulin glargine 5 Units pen (long acting) (LANTUS SOLOSTAR, BASAGLAR KWIKPEN) 5 Units SUBCUTANEOUS AT BEDTIME heparin iv infusion (STROKE NOMOGRAM) 25,000 units in NaCl 0.45% 250 mL PREMIX 0-3,000 Units/hr INTRAVENOUS CONTINUOUS isosorbide mononitrate ER 60 mg tab(s) (IMDUR) 60 mg ORAL DAILY carvedilol 25 mg tab(s) (COREG) 25 mg ORAL BID w MEALS amLODIPine 10 mg tab(s) (NORVASC) 10 mg ORAL DAILY DATA Recent Labs 09/18/17 0014 09/17/17 0405 09/16/17 0531 WBC 10.60 9.98 9.44 HB 13.9 14.1 14.8 HCT 41.5 43.0 45.1 PLT 168 189 180 Recent Labs 09/18/17 0014 09/17/17 0405 09/16/17 0803 NA 137 136 137 K 4.4 4.0 4.0 CO2 28 25 26 BUN 17 17 17 CREAT 1.52* 1.49* 1.49* GLUC 235* 171* 131* IMAGING reviewed ASSESSMENT AND PLAN 61M with CAD (prior PCI to RCA, rPDA and LAD), PAD with prior LLE stent, HNT, HLD, DMII, ARNOLDO who presents with severe 3v CAD here for consideration of CABG. He describes slowly progressive angina over the last several months. Despite presenting with AF with slow ventricular response, he spontaneously cardioverted to sinus rhythm with normal HR (70s). Reasonable to consider CABG with MAZE and possible SHAD exclusion. Plan: - admit to telemetry - echo pending - continue aspirin (hold P2Y12), statin. Continue BB - LHC uploaded in [employer] for review. Seems a reasonable candidate for CABG with MAZE; CTS consult. - will continue on heparin gtt for AF (currently sinus rhythm) Problem Cad (Coronary Artery Disease) History: S/p ELZA to rRCA 2.5x28mm Promus Premier EES on 02/11/15 c/b dissection during cath not amenable to corrective intervention. 09/11/2016 Developed palpitations, CE negative, Abnormal stress test. LHC at [facility] showed triple vessel disease. Transferred to F for CABG eval. Last dose of Plavix 09/11/2016 Assessment: CP free OSH LHC uploaded into [employer]. Plan: ASA, IV heparin, Statin, BB, Imdur. Consulted CTS, Dr Zapata reviewing information, surgery date pending.. Peripheral arterial disease History : POA S/p multiple interventions Assessment: Pt reports he can not use IPCs due to poor circulartion peripheral pulses intact cont medical tx ABIs: Rt normal at rest. Lt mild disease at rest Plan: On heparin drip due to unstable angina,. Continue statin Diabetes Mellitus Type 2 With Peripheral Artery Disease (Hcc) Home meds: Januvia, glimepiride, metformin Assessment: Results for NOMAN STONE ( ) as of 09/14/2017 14:01 Ref. Range 04/01/2017 00:00 Hemoglobin A1C Latest Ref Range: 4.8 - 5.9 % 7.9 (A) Plan: .recheck HGA1C, pt may take his own med Trulicity on Sunday. SS insulin.. Htn (Hypertension) History: Home meds: Imdur 60mg, losartan 25mg, carvedilol 25mg BID, Norvasc 10mg., HCTZA 12.5mg Assessment: BP controlled. 09/17/2017 Held losartan due to worsening renal function Plan: .Continue home meds except for losartan and HCTZ, monitor need to titrate meds.. Hyperlipidemia History: POA: Home med: atorvastatin. Assessment: Component Latest Ref Rng AND Units 09/14/2017 Cholesterol, Total <200 mg/dL 123 Triglyceride <150 mg/dL 167 (H) HDL Cholesterol >39 mg/dL 34 (L) LDL Cholesterol <100 mg/dL 56 Non HDL Cholesterol <130 mg/dL 89 Fasting Time hrs Unknown VLDL Cholesterol <30 mg/dL 33 (H) TC:HDL Ratio <5.10 3.62 LDL:HDL Ratio <2.54 1.65 Plan: Continue Lipitor 80mg Case to be discussed with staff India Pa PA-C Pager [phone] (please see below for after hours communication) 09/18/2017 1:01 PM For communication after 5 pm on weekdays and after 12 pm on weekends, please page the following: - Clinical Cardiology patients on all floors: page [phone] - Other Cardiology patients on J5 and J6: page [phone] - Other Cardiology patients on J7 and J8: page [phone] Jacky Lorenzo MD, 09/18/2017 1:42 PM Signed Brief Vascular Surgery Plan of Care Note: Patient discussed with both Dr. Ambrosio and Dr. Corrales this am and prior vascular studies reviewed as well. Stable PVD with near-joshua/normall ABIs (L NIKKI 0.89 and R NIKKI 1.04). Plan: -Still ok to proceed with planned CABG and LE vein harvest -Do not need to repeat formal PVRs at this time -Vascular Surgery will sign off, but please call with additional questions Jacky Lorenzo MD Resident Vascular Surgery Pager [phone] [employer] Helper Pager [phone] Hector Brewer PA-C 09/19/2017 10:10 AM Addendum [facility] C[facility]ICINE PROGRESS NOTE (Template ID [id number]) Noman J Bertha [id number] PRIMARY SERVICE: Hvi Card Intervention, Dr Nguyen [facility] DAY: # 6 INTERVAL HISTORY Pt is sitting in the chair, finishing breakfast. He has no chest pain or dyspnea.he is awaiting surgical date from CTS . He had some constipation yesterday, had a bowel movement today, wants to continue on stool softeners. He is worried about his legs and circulation and he has stents in his legs. He can't wear the support hoses and he was told not to wear the IPC either. PHYSICAL EXAM BP 127/83 Pulse 69 Temp 36.8 ?C (98.3 ?F) (Oral) Resp 18 Ht 172.7 cm (5' 8) Wt 105 kg (231 lb 6.4 oz) SpO2 95% BMI 35.18 kg/m? Intake/Output Summary (Last 24 hours) at 09/19/17 1010 Last data filed at 09/19/17 0900 Gross per 24 hour Intake 1120 ml Output 1400 ml Net -280 ml General Appearance: Well developed and No distress HEENT: EOM's intact, JVD - no and Bruits - no Lungs: Clear Heart: Regular rate AND rhythm,no Murmur , S1, S2 normal, S4 present, trace lower leg edema and Vascular: Pulses - +2 intact Abdomen: Soft, Round, Non-tender, Bowel sounds present, Bruits - no and Organomegaly - no Skin: Warm and Dry Musculoskeletal: No deformities Neurologic/Psychiatric: Oriented to time, place AND person MEDICATIONS Current hospital medications: hydrocortisone topical cream 1% TOPICAL BID senna-docusate 8.6-50 mg 2 tablet (SENNA-S) 2 tablet ORAL BID polyethylene glycol 3350 17 g packet (MIRALAX, GLYCOLAX) 17 g ORAL DAILY atorvastatin 80 mg tab(s) (LIPITOR) 80 mg ORAL DAILY HYDROcodone 5 mg - acetaminophen 325 mg tablet (NORCO) 1 tablet ORAL q 6 H PRN aspirin, enteric coated 81 mg tab(s) (ASPIRIN, ENTERIC COATED) 81 mg ORAL DAILY dextrose 40 % 15 g 15 g ORAL PRN glucagon 1 mg injection (GLUCAGEN) 1 mg INTRAMUSCULAR PRN dextrose 50% in water 25 mL syringe 12.5 g INTRAVENOUS PRN acetaminophen 325-650 mg tab(s) (TYLENOL) 325-650 mg ORAL q 4 H PRN docusate sodium 100 mg cap(s) (COLACE) 100 mg ORAL BID PRN insulin lispro injection (rapid acting) (HumaLOG) SUBCUTANEOUS w MEALS insulin lispro injection (rapid acting) (HumaLOG) SUBCUTANEOUS AT BEDTIME insulin glargine 5 Units pen (long acting) (LANTUS SOLOSTAR, BASAGLAR KWIKPEN) 5 Units SUBCUTANEOUS AT BEDTIME heparin iv infusion (STROKE NOMOGRAM) 25,000 units in NaCl 0.45% 250 mL PREMIX 0-3,000 Units/hr INTRAVENOUS CONTINUOUS isosorbide mononitrate ER 60 mg tab(s) (IMDUR) 60 mg ORAL DAILY carvedilol 25 mg tab(s) (COREG) 25 mg ORAL BID w MEALS amLODIPine 10 mg tab(s) (NORVASC) 10 mg ORAL DAILY DATA Recent Labs 09/19/17 0434 09/18/17 0014 09/17/17 0405 WBC 12.03* 10.60 9.98 HB 14.6 13.9 14.1 HCT 44.7 41.5 43.0 PLT 203 168 189 Recent Labs 09/19/17 0434 09/18/17 0014 09/17/17 0405 NA 136 137 136 K 4.0 4.4 4.0 CO2 25 28 25 BUN 17 17 17 CREAT 1.26* 1.52* 1.49* GLUC 180* 235* 171* IMAGING ASSESSMENT AND PLAN 61M with CAD (prior PCI to RCA, rPDA and LAD), PAD with prior LLE stent, HNT, HLD, DMII, ARNOLDO who presents with severe 3v CAD here for consideration of CABG. He describes slowly progressive angina over the last several months. Despite presenting with AF with slow ventricular response, he spontaneously cardioverted to sinus rhythm with normal HR (70s). Reasonable to consider CABG with MAZE and possible SHAD exclusion. Plan: - admit to telemetry - echo pending - continue aspirin (hold P2Y12), statin. Continue BB - LHC uploaded in [employer] for review. Seems a reasonable candidate for CABG with MAZE; CTS consult. - will continue on heparin gtt for AF (currently sinus rhythm) Problem Cad (Coronary Artery Disease) History: S/p ELZA to rRCA 2.5x28mm Promus Premier EES on 02/11/15 c/b dissection during cath not amenable to corrective intervention. 09/11/2016 Developed palpitations, CE negative, Abnormal stress test. LHC at [facility] showed triple vessel disease. Transferred to [facility] for CABG eval. Last dose of Plavix 09/11/2016 Assessment: CP free OSH LHC uploaded into [employer]. Plan: ASA, IV heparin, Statin, BB, Imdur. Consulted CTS, Dr Zapata reviewing information, surgery date pending Peripheral arterial disease History : POA S/p multiple interventions Assessment: Pt reports he can not use IPCs due to poor circulartion peripheral pulses intact cont medical tx ABIs: Rt normal at rest. Lt mild disease at rest Consulted vascular surgery for claudication and severe PAD Stable PVD with near-joshua/normall ABIs (L NIKKI 0.89 and R NIKKI 1.04). ? Plan: -Still ok to proceed with planned CABG and LE vein harvest -Do not need to repeat formal PVRs at this time -Vascular Surgery will sign off, but please call with additional questions Pt states that he can't wear the support hoses and told not to wear the IPC's He is worried about this after surgery. Plan: On heparin drip due to unstable angina,. 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 Range 04/01/2017 00:00 Hemoglobin A1C Latest Ref Range: 4.8 - 5.9 % 7.9 (A) recheck HGA1C 8.8 Plan:, pt may take his own med Trulicity on Sunday. SS insulin.. Htn (Hypertension) History: Home meds: Imdur 60mg, losartan 25mg, carvedilol 25mg BID, Norvasc 10mg., HCTZA 12.5mg Assessment: BP controlled. 09/17/2017 Held losartan due to worsening renal function Plan: .Continue home meds except for losartan and HCTZ, monitor need to titrate meds.. Hyperlipidemia History: POA: Home med: atorvastatin. Assessment: Component Latest Ref Rng AND Units 09/14/2017 Cholesterol, Total <200 mg/dL 123 Triglyceride <150 mg/dL 167 (H) HDL Cholesterol >39 mg/dL 34 (L) LDL Cholesterol <100 mg/dL 56 Non HDL Cholesterol <130 mg/dL 89 Fasting Time hrs Unknown VLDL Cholesterol <30 mg/dL 33 (H) TC:HDL Ratio <5.10 3.62 LDL:HDL Ratio <2.54 1.65 Plan: Continue Lipitor 80mg Obesity, Class II, Bmi 35-39.9 History: POA Assessment: Body mass index is 36.36 kg/m?. Plan: discussed wt loss Chronic Low Back Pain History: present SHAKER OUT Assessment: Takes [place] Pt concerned post op laying flat will have a lot of pain Plan: Continue [place] and pt to discuss with anesthesia Renal Insufficiency History: POA, baseline creat is 1.3 Assessment: 09/16/17 increase in creat to 1.49 09/17/2017 creat 1.49 Kidney u/s 09-17 no hydonephrosis Dc losartan 09-14 creatinine 1.52 09/19 creatinine 1.26 Plan: Monitor Creat Case to be discussed with staff Hector Brewer PA-C Pager [phone] (please see below for after hours communication) 09/19/2017 9:56 AM For communication after 5 pm on weekdays and after 12 pm on weekends, please page the following: - Clinical Cardiology patients on all floors: page [phone] - Other Cardiology patients on J5 and J6: page [phone] - Other Cardiology patients on J7 and J8: page [phone] Previous Version Lakeisha Martinez, RN, RN 09/20/2017 3:42 AM Signed Nursing Progress Note Patient Name: Noman Stone Patient Location: [place] [address]/J6 Event(s) / Intervention Note: The patient complained of the following problems: 4/10 chest pressure. BP 148/81, HR 70, O2 92RA, no SOB. EKG obtained and transmitted. The time of the event occurred at: 0110. The following intervention(s) were initiated: Dr. Sharp notified at .. After the initiated interventions, the following observation(s) were made: physician is at bedside. See MAR for orders. Will continue to monitor and assess. 02:30 Pt reports complete relief of pain. Continuing to monitor. This note was completed by: GENIA Santo RN FRUIT PEELER.ASSISTANT STRENGTH COACH 09/20/2017 10:49 AM Signed [facility] PROGRESS NOTE Noman Stone [id number] Dr. Torrez is out of town, case discussed with Dr. Gray, and will perform CABG in am). CTS staff Dr. Isabel Gray Intended surgery: CABG Date of surgery: Tomorrow 09/21 first round. Will stop Heparin drip at 0200 09/21 Dr. Gray to see patient later today. ASSESSMENT AND PLAN: Problem Preop Testing [facility] PRE-OP CHECKLIST Surgeon: Dr. Isabel Gray Informed Consent Completed: pending STS Score: CABG MAZE LAAL (documented PAF) CAD: Yes - CAD on Problem List: Yes Is intended procedure a CABG: Yes - is a beta nico ordered? Yes H AND P completed: Yes PA/LAT: Completed CT: Completed MRI: N/A LE US: Completed Cath: Yes - reviewed: Yes Echo:Completed EKG: Completed EF %: mnormal PI's: Completed good left PI: > 67%. Carotid: Completed Mapping: Completed Dental: N/A PFT's: N/A CBC, Coags, BMP, Mg, Phos Recent Labs 09/20/17 0431 09/19/17 0434 09/18/17 0014 09/18/17 0012 WBC 11.03* 12.03* 10.60 -- HB 14.3 14.6 13.9 -- HCT 43.6 44.7 41.5 -- PLT 196 203 168 -- APTT 50.1* 55.7* -- 53.4* NA 136 136 137 -- K 3.9 4.0 4.4 -- CHLOR 98 97 100 -- CO2 23 25 28 -- BUN 12 17 17 -- CREAT 1.38* 1.26* 1.52* -- GLUC 166* 180* 235* -- CA 9.6 9.8 8.9 -- UA: Normal HCG:N/A ABO/ABO Confirmed: Yes Blood ordered: Yes SA Swab: Yes - results: Negative Last Dose of Anticoagulation: Plavix and Heparin Op Note: No Pacemaker Check: No Implants: no Consults: vascular surgery, Endocrine DM: Yes Cardiac Surgical prep: Yes SIGNATURE: Shira Pérez RN FRUIT PEELER.ASSISTANT STRENGTH COACH CHECKED BY: DATE of SERVICE: 09/17/2017 TIME of SERVICE: 1:13 PM Informed patient (and family) what to expect pre/post operatively Stressed to patient the importance of pain control for successful recovery: INFORMED OF IMPORTANCE OF GOOD PAIN [id number] for pain medication early when pain level is 2/0-10Informed patient (and family) what to expect pre/post operatively IMPORTANCE OF PAIN [id number] for pain medication early, take pain medication routinely to have adquate pain control to prevent postop complications ie Pneumonia, Deep Vein Thrombosis, Delayed Wound Healing, Longer Hospital Stay. Explained importance of Deep Breathing/Coughing before and after surgery pain scale, take pain medication routinely to have adquate pain control to prevent postop complications for example,? Pneumonia, Deep Vein Thrombosis, Delayed Wound Healing, Longer Hospital Stay. ? Explained the importance of Bowel Maintenance-taking stool softners (or laxatives if indicated) to maintain regular bowel movements while on pain medication. Informed of benefits of adequate pain control- taking pain medication when pain level is -ask for pain medication; Inform pt may want to ask for pain medication around the clock/routinely on first postop Day on Regular Nursing Floor- thereby promoting recovery;-able to breathe deeply and adequately thus decrease Oxygen requirements of body, Able to walk, get out of bed- thereby decrease recovery time and decreased risk for infection. Explained importance of Deep Breathing/Coughing before and after surgery Instructed in breathing exercises-deep breaths 10 times/hour while awake. Pt verbalized understanding and demostrated understanding via return demonstration. Discussed discharged plans-informed patient , a Cardiac Surgery Nurse Practitioner visit is recommended within 3-7 days after being discharged if lived in near [place], [place] area or within [address] of [place], [place]. Discussed with Patient (Family) will need to see their PCP and Procurement Director? following discharged- specific time frames for postop visits for Cardiac Surgery Nurse Practitioner, PCP and Procurement Director will be discussed at time of discharged. Patient (Family) Verbalized understanding. SIGNATURE: Shira Pérez RN FRUIT PEELER.ASSISTANT STRENGTH COACH PAGER: [phone] DATE of SERVICE: 09/20/2017 TIME of SERVICE: 10:49 AM [place] Pa PA-C 09/20/2017 12:18 PM Signed [facility] PROGRESS NOTE (Template ID [id number]) Noman Stone [id number] PRIMARY SERVICE: Hvi Card Intervention HOSPITAL DAY: # 7 INTERVAL HISTORY Denies CP or SOB PHYSICAL EXAM BP 127/78 Pulse 72 Temp 36.6 ?C (97.8 ?F) (Oral) Resp 20 Ht 172.7 cm (5' 8) Wt 103.9 kg (229 lb) SpO2 93% BMI 34.82 kg/m? Intake/Output Summary (Last 24 hours) at 09/20/17 1208 Last data filed at 09/20/17 1034 Gross per 24 hour Intake 750 ml Output 2100 ml Net -1350 ml General Appearance: Well developed and No acute distress HEENT: EOM's intact Lungs: Clear Heart: Regular rate AND rhythm, S1, S2 normal and Vascular: Pulses - intact Abdomen: Soft, Round, Non-tender and Bowel sounds present Skin: Warm and Dry Musculoskeletal: No deformities Neurologic/Psychiatric: Oriented to time, place AND person MEDICATIONS Current hospital medications: Chlorhexidine Gluconate 0.12 % 15 mL (PERIDEX) 15 mL ORAL q 12 H hydrocortisone topical cream 1% TOPICAL BID senna-docusate 8.6-50 mg 2 tablet (SENNA-S) 2 tablet ORAL BID polyethylene glycol 3350 17 g packet (MIRALAX, GLYCOLAX) 17 g ORAL DAILY atorvastatin 80 mg tab(s) (LIPITOR) 80 mg ORAL DAILY HYDROcodone 5 mg - acetaminophen 325 mg tablet (NORCO) 1 tablet ORAL q 6 H PRN aspirin, enteric coated 81 mg tab(s) (ASPIRIN, ENTERIC COATED) 81 mg ORAL DAILY dextrose 40 % 15 g 15 g ORAL PRN glucagon 1 mg injection (GLUCAGEN) 1 mg INTRAMUSCULAR PRN dextrose 50% in water 25 mL syringe 12.5 g INTRAVENOUS PRN acetaminophen 325-650 mg tab(s) (TYLENOL) 325-650 mg ORAL q 4 H PRN docusate sodium 100 mg cap(s) (COLACE) 100 mg ORAL BID PRN insulin lispro injection (rapid acting) (HumaLOG) SUBCUTANEOUS w MEALS insulin lispro injection (rapid acting) (HumaLOG) SUBCUTANEOUS AT BEDTIME insulin glargine 5 Units pen (long acting) (LANTUS SOLOSTAR, BASAGLAR KWIKPEN) 5 Units SUBCUTANEOUS AT BEDTIME heparin iv infusion (STROKE NOMOGRAM) 25,000 units in NaCl 0.45% 250 mL PREMIX 0-3,000 Units/hr INTRAVENOUS CONTINUOUS isosorbide mononitrate ER 60 mg tab(s) (IMDUR) 60 mg ORAL DAILY carvedilol 25 mg tab(s) (COREG) 25 mg ORAL BID w MEALS amLODIPine 10 mg tab(s) (NORVASC) 10 mg ORAL DAILY DATA Recent Labs 09/20/17 0431 09/19/17 0434 09/18/17 0014 WBC 11.03* 12.03* 10.60 HB 14.3 14.6 13.9 HCT 43.6 44.7 41.5 PLT 196 203 168 Recent Labs 09/20/17 0431 09/19/17 0434 09/18/17 0014 NA 136 136 137 K 3.9 4.0 4.4 CO2 23 25 28 BUN 12 17 17 CREAT 1.38* 1.26* 1.52* GLUC 166* 180* 235* IMAGING reviewed ASSESSMENT AND PLAN 61M with CAD (prior PCI to RCA, rPDA and LAD), PAD with prior LLE stent, HNT, HLD, DMII, ARNOLDO who presents with severe 3v CAD here for consideration of CABG. He describes slowly progressive angina over the last several months. Despite presenting with AF with slow ventricular response, he spontaneously cardioverted to sinus rhythm with normal HR (70s). Reasonable to consider CABG with MAZE and possible SHAD exclusion. Plan: - admit to telemetry - echo pending - continue aspirin (hold P2Y12), statin. Continue BB - LHC uploaded in [employer] for review. Seems a reasonable candidate for CABG with MAZE; CTS consult. - will continue on heparin gtt for AF (currently sinus rhythm) Problem Cad (Coronary Artery Disease) History: S/p ELZA to rRCA 2.5x28mm Promus Premier EES on 02/11/15 c/b dissection during cath not amenable to corrective intervention. 09/11/2016 Developed palpitations, CE negative, Abnormal stress test. LHC at [facility] showed triple vessel disease. Transferred to [facility] for CABG eval. Last dose of Plavix 09/11/2016 Assessment: CP free OSH LHC uploaded into [employer]. Plan: ASA, IV heparin, Statin, BB, Imdur. Consulted CTS, Dr Zapata reviewing information, Scheduled for OHS 09/21/[address] Gray. Peripheral arterial disease History : POA S/p multiple interventions Assessment: Pt reports he can not use IPCs due to poor circulartion peripheral pulses intact cont medical tx ABIs: Rt normal at rest. Lt mild disease at rest Consulted vascular surgery for claudication and severe PAD Stable PVD with near-joshua/normall ABIs (L NIKKI 0.89 and R NIKKI 1.04). ? Plan: -Still ok to proceed with planned CABG and LE vein harvest -Do not need to repeat formal PVRs at this time -Vascular Surgery will sign off, but please call with additional questions Pt states that he can't wear the support hoses and told not to wear the IPC's He is worried about this after surgery. Plan: On heparin drip due to unstable angina,. Continue statin.. 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 Range 04/01/2017 00:00 Hemoglobin A1C Latest Ref Range: 4.8 - 5.9 % 7.9 (A) recheck HGA1C 8.8 Plan:., pt may take his own med Trulicity on Sunday. SS insulin.. Hyperlipidemia History: POA: Home med: atorvastatin. Assessment: Component Latest Ref Rng AND Units 09/14/2017 Cholesterol, Total <200 mg/dL 123 Triglyceride <150 mg/dL 167 (H) HDL Cholesterol >39 mg/dL 34 (L) LDL Cholesterol <100 mg/dL 56 Non HDL Cholesterol <130 mg/dL 89 Fasting Time hrs Unknown VLDL Cholesterol <30 mg/dL 33 (H) TC:HDL Ratio <5.10 3.62 LDL:HDL Ratio <2.54 1.65 Plan: Continue Lipitor 80mg. Renal Insufficiency History: POA, creat on admission was 1.35 Assessment: 09/16/17 increase in creat to 1.49 Dc losartan 09-1409/17/2017 creat 1.49 Kidney u/s 09-17: no hydonephrosis 09/18 creatinine 1.52 09/19 creatinine 1.26 09/20 creatinine 1.38 Plan: Monitor Creat. Leukocytosis History: not present on admission Assessment: 09/19 WBC 12 09/20/2017 WBC 11, no fever Reviewed most recent CXR, UA neither of them suggestive of infection. No complaints of cough, fever, chills, congestion, IV site unremarkable Plan: monitor.. Chronic Low Back Pain History: present SHAKER OUT Assessment: Takes [place] Pt concerned post op laying flat will have a lot of pain Plan: Continue [place] and pt to discuss with anesthesia. Case to be discussed with staff India Pa PA-C Pager [phone] (please see below for after hours communication) 09/20/2017 12:08 PM For communication after 5 pm on weekdays and after 12 pm on weekends, please page the following: - Clinical Cardiology patients on all floors: page [phone] - Other Cardiology patients on J5 and J6: page [phone] - Other Cardiology patients on J7 and J8: page [phone] NICHOLAS Cano 09/20/2017 1:01 PM Signed NUTRITION THERAPY FOLLOW-UP NOTE SERVICE DATE: 09/20/2017 SERVICE TIME: 1020 Anthropometrics: Height: 172.7 cm (5' 8) Current Weight: Weight: 103.9 kg (229 lb) Body mass index is 34.82 kg/m?. Loss of lean body mass/visual muscle wasting: no Admitting Diagnosis: Unstable Angina Present Diet Order: Heart Healthy 2 gm Na Is the patient having any pain that is interfering with oral/enteral intake? No Allergies: ALLERGIES Allergen Reactions - Adhesive Rash Redness to skin - Lisinopril Cough - Penicillins Unknown childhood Reason for Visit: Nutrition screen: LOS > 6 days Nutrient intake assessment: Current intake of meals: 75 - 100% Patient concerns/Issues: The patient states he is doing well. Snacks and supplements were declined. The patient denied any other issues or concerns noted. Will continue to monitor. Nursing Admission Assessment Malnutrition Score Tool: 0 Plan of Care: Recommendation No problems noted at this time. Will screen again within 7 days Discharge Plan: Heart healthy 2 gm sodium MNT Billing Type: Routine Care/15 min 1 unit SIGNATURE: NICHOLAS Cano PATIENT NAME: Noman Stone DATE: September 20, 2017 TIME: 1:00 PM PAGER: [phone] Bryon Tan DO 09/20/2017 6:36 PM Signed [facility] PRE[facility] EVALU[facility] CARDIOTHORACIC ANESTHESIA CARDIAC SURGERY SERVICE DATE: 09/20/2017 SERVICE TIME: 3:05 PM Proposed Surgical Procedure: CABG Re-do: No ASA Class: 4 Surgeon: Marina Surgery Date: 09/21/17 Last Wt 09/20/17 : 103.9 kg (229 lb) Last Ht 09/13/17 : 172.7 cm (5' 8) Estimated body mass index is 34.82 kg/m? as calculated from the following: Height as of this encounter: 172.7 cm (5' 8). Weight as of this encounter: 103.9 kg (229 lb). Estimated body surface area is 2.23 meters squared as calculated from the following: Height as of this encounter: 172.7 cm (5' 8). Weight as of this encounter: 103.9 kg (229 lb). Mr. Stone is a 61 year old male with past medical history significant for: CAD s/p PCI to RCA, rPDA, LAD; unstable angina. - last dose clopidogrel 09/11 - Hep gtt, asa 81, statin, bb, imdur Atrial fibrillation with slow rate response, currently in NSR PAD s/p LLE stent x 2; patient wants to avoid intermittent compression device on left leg. HTN - amlodipine, carvedilol HLD DM type II - SSI ARNOLDO Low back pain - takes [place] x 1 daily, cannot lay flat for long periods; PAST MEDICAL HISTORY Diagnosis Date - Acute renal failure (HCC) - CAD (coronary artery disease) - Diabetes mellitus (HCC) 11/17/2010 - Essential hypertension, benign - GERD (gastroesophageal reflux disease) 11/17/2010 - H/O percutaneous transluminal coronary angioplasty - Hyperlipidemia - Low testosterone 12/12/2011 - Other and unspecified hyperlipidemia - PAD (peripheral artery disease) (HCC) - Paroxysmal atrial fibrillation (HCC) - Raynaud's syndrome - Shift work sleep disorder 05/03/2015 - Type 2 diabetes mellitus with stage 3 chronic kidney disease, with long-term current use of insulin (HCC) 12/09/2015 - Type II or unspecified type diabetes mellitus with peripheral circulatory disorders, uncontrolled(250.72) 08/28/2013 PAST SURGICAL HISTORY Procedure Laterality Date - COLONOSCOP W/ OR W/O [facility] SPEC 04-12-10 - COLONOSCOPY W/BX 07-07-15 - EGD W/O [facility] SPECIMEN W/BX 07-07-15 - HEART CATHETERIZATION 2008 with stents - PAST SURGICAL HISTORY OF 10/03/10 bilat lower extremity arteriogram with angioplasty - PAST SURGICAL HISTORY OF 03/09/10 Bilat lower ext arteriogram left pop and sup fem artery angioplasty - PAST SURGICAL HISTORY OF 09/14/05 bilat arteriogram with left pop manometry - PLACE CATH SUBSUBSELECT ART,ABD/PEL 09/14/05 - REM LESION NEC,HAND,SCAL<0.5CM 01/29/10 Exc. right infra-auricular lesion - REM LESION NEC,HAND,SCAL<0.5CM 12/10/13 EXc. right foot lesion - REPAIR ING HERNIA,5+Y/O,REDUCIBL 1963 Hernia repair, inguinal - REVSC OPN/PRG FEM/POP W/ANGIOPLASTY [facility] 05-11-10 RIGHT POP - REVSC OPN/PRG FEM/POP W/ANGIOPLASTY [facility] 02/17/08 right fem with angioplasty,catheter placed right pop,right sfa,LLE ateriogram - REVSC OPN/PRG FEM/POP W/ANGIOPLASTY [facility] 11/26/07 L fem angio with stenting and smart stent placed - REVSC OPN/PRG FEM/POP W/ANGIOPLASTY [facility] 07-17-11 left leg - REVSC OPN/PRQ FEM/POP W/ATHRC/ANGIOP [facility] 05-11-10 RIGHT SFA - REVSC OPN/PRQ TIB/NI W/ANGIOPLASTY [facility] 05-11-10 RIGHT - REVSC OPN/PRQ TIB/NI W/ANGIOPLASTY [facility] 01-09-14 - REVSC OPN/PRQ TIB/NI W/ATHRC/ANGIOP [facility] 07-03-11 right leg - REVSC OPN/PRQ TIB/NI W/ATHRC/ANGIOP [facility] 02-10-13 RIGHT FAMILY HISTORY Problem Relation Age of Onset - Heart Father - Hypertension Maternal Grandmother - GI Maternal Grandmother - Heart Paternal Grandfather - Cancer Mother lung - Cancer Sister Non hodgkins lymphoma - Diabetes Maternal Grandfather Social History Substance Use Topics - Smoking status: Never Smoker - Smokeless tobacco: Never Used - Alcohol use Yes ALLERGIES Allergen Reactions - Adhesive Rash Redness to skin - Lisinopril Cough - Penicillins Unknown childhood REVIEW OF SYSTEMS: Neuro: Negative Respiratory: No history of current cough or dyspnea, or pneumonia in the past 6 weeks. No history of respiratory/pulmonary symptoms or problems Cardiovascular: See HPI GI: No history of GI symptoms or problems. No history of esophageal varices, recent ascites, or ETOH greater than 2 drinks per day. Endocrine: See HPI Hematology: See HPI ANESTHETIC HISTORY: History of general anesthesia without complications. AIRWAY ASSESSMENT: Airway History: No abnormal airway history Airway Exam: General: Normal appearance Mallampati Score: CLASS I Temporo-Mandibular Displacement Test: Position A (lower teeth can be advanced beyond upper teeth) Interincisor Distance: 6 cm Thyromental Distance: 6 cm Neck Circumference: 40 cm Overbite: Yes Cervical Mobility: Normal Facial Hair: No Head/Neck Pathology: No ANTICIPATED DIFFICULT AIRWAY: NO PHYSICAL EXAM: VITALS: BP 113/56 Pulse 74 Temp 36.7 ?C (98.1 ?F) (Oral) Resp 16 Ht 172.7 cm (5' 8) Wt 103.9 kg (229 lb) SpO2 93% BMI 34.82 kg/m? CARDIAC: Regular rate and rhythm. LUNGS: Lungs clear to auscultation. Good air entry bilaterally. Lines, Drains, Airway: Peripheral O2 Therapy: Room Air (09/20/17 1513) LABS: Lab Results Past 6 Months Component Value Date HB 14.3 09/20/2017 HCT 43.6 09/20/2017 PLT 196 09/20/2017 WBC 11.03 (H) 09/20/2017 NA 136 09/20/2017 K 3.9 09/20/2017 CREAT 1.38 (H) 09/20/2017 CA 9.6 09/20/2017 APTT 50.1 (H) 09/20/2017 INR 1.1 09/20/2017 HBA1C 8.8 (H) 09/15/2017 Lab Results Past 6 Months Component Value Date GLUC 166 (H) 09/20/2017 K 3.9 09/20/2017 NA 136 09/20/2017 CHLOR 98 09/20/2017 CO2 23 09/20/2017 CREAT 1.38 (H) 09/20/2017 BUN 12 09/20/2017 ANION 15 09/20/2017 CA 9.6 09/20/2017 TPROT 7.3 09/13/2017 ALB 4.1 09/13/2017 TBILI 0.6 09/13/2017 ALKPHOS 53 09/13/2017 AST 20 09/13/2017 ALT 23 09/13/2017 ABO/RH(D) (no units) Date Value 09/20/2017 O POSITIVE Antibody Screen (no units) Date Value 09/20/2017 NEG Historical Ab Scr Status (no units) Date Value 09/20/2017 NEGATIVE Anticipated Blood Products Ordered: No blood product orders needed. Will the Patient Accept Blood: Yes IMAGING AND TESTS: ECHO MEASUREMENTS: ?Value ? Indexed ? ?Normal Max aortic dimension ? ? 3.2 cm ?1.42 cm/m? Left atrium diameter ? ? 3.5?cm (M-Mode) Left atrial volume ? ? ? 41 ml (biplane A-L) 18 ml/m? ? Amy <= 34 LV ID (diastole) ? 4.9 cm (2D) LV ID (systole) ?3.2 cm (2D) IVS, leaflet tips ?0.9 cm (2D) Posterior wall thickness 1.1 cm (2D) Left ventricular mass ?77 g/m? LV stroke volume ? 39 ml (2D biplane) LV end diastolic volume ?64 ml (2D biplane) ?28.6 ml/m? 34<=EDVi<75 LV end systolic volume ? 25 ml (2D biplane) ?11.3 ml/m? Ejection Fraction ?60 % (2D biplane) ?EF > 52 FINDINGS: LEFT VENTRICLE The left ventricle is small. There is mild concentric left ventricular hypertrophy. Left ventricular systolic function is normal. Grade I left ventricular diastolic dysfunction. Mitral annular lateral E/e': 8.1. Mitral annular septal E/e': 12.7. Wall Motion: The basal inferior segment is akinetic. The mid inferior segment is mildly hypokinetic. All remaining scored segments are normal. ? RIGHT VENTRICLE The right ventricle is normal in size. Right ventricular systolic function is low normal. RV systolic tissue Doppler velocity is 10.3 cm/s. Estimated right ventricular systolic pressure is not reported due to an insufficient tricuspid regurgitation signal. ? LEFT ATRIUM The left atrial cavity is normal in size. Pulmonary Veins: The pulmonary venous pattern showed blunted systolic flow. RIGHT ATRIUM The right atrial cavity is normal in size. Inferior Vena Cava: The inferior vena cava appears normal measuring 1.6 cm. The vessel decreases greater than 50 percent with inspiration. MITRAL VALVE The mitral valve leaflets are structurally normal. There is trivial mitral valve regurgitation. The pressure half time is 38 msec. The peak mitral E/A ratio is 0.89. The average mitral E/e' ratio is 10.4. The mitral flow deceleration time is 132 msec. ? TRICUSPID VALVE The tricuspid valve leaflets are structurally normal. There is trivial tricuspid valve regurgitation. ? AORTIC VALVE There is no aortic valve regurgitation. Tricuspid aortic valve. There is mild thickening. The peak gradient is 6 mmHg (peak velocity = 125.0 cm/s). ? PULMONIC VALVE The pulmonic valve was not seen or not interrogated. There is trivial pulmonic valve regurgitation. ? AORTA The visualized aorta is normal in size. Measurements - Mid ascending aorta 3.2 cm. Mid arch 2.6 cm. PULMONARY ARTERIES The pulmonary arteries are unseen or not interrogated. ? INTERATRIAL SEPTUM There is no evidence of intracardiac shunting as detected by Doppler. ? INTERVENTRICULAR SEPTUM There is normal motion of the interventricular septum. ? PERICARDIUM There is no pericardial effusion. ? CONCLUSIONS: - Exam indication: CAD - There is a resting wall motion abnormality in the territory of the RCA. - The left ventricle is small. There is mild concentric left ventricular hypertrophy. Left ventricular systolic function is normal. EF = 60 ? 5% (2D biplane) Grade I left ventricular diastolic dysfunction. The basal inferior segment is akinetic. The mid inferior segment is mildly hypokinetic. - The right ventricle is normal in size. Right ventricular systolic function is low normal. - RWMA in RCA territory, as seen on prior echo. - Exam was compared with the prior CC echocardiographic exam performed on 02/11/2015, similar findings. Carotid RIGHT SIDE Common carotid artery: Plaque visualized without evidence of hemodynamically significant stenosis. Internal carotid artery: 20-39% stenosis. Vertebral artery: Patent and antegrade flow noted. ? LEFT SIDE Common carotid artery: Plaque visualized without evidence of hemodynamically significant stenosis. Internal carotid artery: 0-19% stenosis. Vertebral artery: Patent and antegrade flow noted. CT Chest IMPRESSION: AORTIC VALVE: ?mild calcification at the commisures AORTIC ROOT: upper normal size; Diameter: 3.7 cm ASCENDING THORACIC AORTA: normal size; Diameter: 3.6 cm ?; no calcification Diffuse, calcified atherosclerotic changes of the coronary arteries, precluding precise assessment with CT. Presence of stents can not be excluded. Relationship OF CARDIOVASCULAR STRUCTURES TO STERNUM: The left brachio-cephalic vein lies 8 mm behind the manubrium sternum. The RV lies 9 mm behind the lower sternum. AORTIC CALCIFICATION: see above. absence of calcification of the ascending thoracic aorta AORTIC ARCH BRANCH VESSELS: see above. ?Mid and distal subclavian arteries: normal size vessels without evidence of calcification Assessment of patency is not possible in a non-contrast study DEVICES: None MEDICATIONS: Current Facility-Administered Medications: Chlorhexidine Gluconate 0.12 % 15 mL (PERIDEX) 15 mL ORAL q 12 H hydrocortisone topical cream 1% TOPICAL BID senna-docusate 8.6-50 mg 2 tablet (SENNA-S) 2 tablet ORAL BID polyethylene glycol 3350 17 g packet (MIRALAX, GLYCOLAX) 17 g ORAL DAILY atorvastatin 80 mg tab(s) (LIPITOR) 80 mg ORAL DAILY HYDROcodone 5 mg - acetaminophen 325 mg tablet (NORCO) 1 tablet ORAL q 6 H PRN aspirin, enteric coated 81 mg tab(s) (ASPIRIN, ENTERIC COATED) 81 mg ORAL DAILY dextrose 40 % 15 g 15 g ORAL PRN Or glucagon 1 mg injection (GLUCAGEN) 1 mg INTRAMUSCULAR PRN Or dextrose 50% in water 25 mL syringe 12.5 g INTRAVENOUS PRN acetaminophen 325-650 mg tab(s) (TYLENOL) 325-650 mg ORAL q 4 H PRN docusate sodium 100 mg cap(s) (COLACE) 100 mg ORAL BID PRN insulin lispro injection (rapid acting) (HumaLOG) SUBCUTANEOUS w MEALS insulin lispro injection (rapid acting) (HumaLOG) SUBCUTANEOUS AT BEDTIME insulin glargine 5 Units pen (long acting) (LANTUS SOLOSTAR, BASAGLAR KWIKPEN) 5 Units SUBCUTANEOUS AT BEDTIME heparin iv infusion (STROKE NOMOGRAM) 25,000 units in NaCl 0.45% 250 mL PREMIX 0-3,000 Units/hr INTRAVENOUS CONTINUOUS isosorbide mononitrate ER 60 mg tab(s) (IMDUR) 60 mg ORAL DAILY carvedilol 25 mg tab(s) (COREG) 25 mg ORAL BID w MEALS amLODIPine 10 mg tab(s) (NORVASC) 10 mg ORAL DAILY Is the patient currently on any anticoagulant medications: Clopidogrel last dose 09/11, bridge per primary team PAIN AND ANXIETY EDUCATION AND MANAGEMENT: Patient has no concerns to address at this time. Additional Comments: I have reviewed the Cardiothoracic Surgical Assessment and agree with its findings. During the course of the encounter the patient was prepared for anesthetic care. This conversation included anesthetic options, possible use of invasive monitoring, the risks, benefits, alternatives, and personnel that will be present for the anesthetic encounter. The patient agreed to proceed with the planned anesthetic. BETA NICO COMPLIANCE: Is the Patient Scheduled for a CABG: Yes. Patient currently takes a beta nico, and was asked to take it as scheduled. SIGNATURE: Bryon Tan DO PATIENT NAME: Noman Stone DATE: September 20, 2017 TIME: 3:05 PM PAGER/CONTACT #: Previous Version Progress Notes [facility] Neelam Chappell RN 09/10/2017 8:15 AM Signed Copy of chart from [facility] sent for you to review Neelam Arnold MD 09/10/2017 10:20 AM Signed Noted and sent for scanning. Jose Arnold MD CONSULTATION Observed: 09/09/2017 Status: F Source: [facility] 10:59 PM [facility] REPOSITORY [facility] Medical Records Department [address] [place] [address] Consultation 09/09/175 MR#: [id number] Acct: [id number] Name: NOMAN STONE Rep #: [id number] : 1955 61 From: Tex Coker MD PCP: Mian Wilburn III, MD Status: ADM IN Y Location: [place] [id number] Problem List (1) A-fib Status: Acute Qualifiers: Atrial fibrillation type: paroxysmal Qualified Code(s): I48.0 - Paroxysmal atrial fibrillation (2) CAD (coronary artery disease) Status: Chronic Qualifiers: Coronary Disease-Associated Artery/Lesion type: unspecified vessel or lesion type [place] vs. transplanted heart: unspecified whether [place] or transplanted heart Associated angina: with unspecified angina Qualified Code(s): I25.119 - Atherosclerotic heart disease of [place] coronary artery with unspecified angina pectoris (3) S/P PTCA (percutaneous transluminal coronary angioplasty) Status: Acute (4) PAD (peripheral artery disease) Status: Chronic (5) HLD (hyperlipidemia) Status: Chronic (6) Hypertension Status: Chronic Qualifiers: Hypertension type: essential hypertension Qualified Code(s): I10 - Essential (primary) hypertension (7) Type 2 diabetes mellitus Status: Chronic Qualifiers: Diabetes mellitus detention insulin use: unspecified intermediate manager insulin use status Diabetes mellitus complication status: with unspecified complications Qualified Code(s): E11.8 - Type 2 diabetes mellitus with unspecified complications (8) Acute renal failure Status: Acute (9) Raynauds disease Status: Chronic Qualifiers: Raynaud?s-associated gangrene presence: without gangrene Qualified Code(s): I73.00 - Raynaud's syndrome without gangrene Reason for Consult Date of Consultation: 09/09/17 History of Present Illness: The patient is a 61 year old white male [employer] employee with a past medical history of CAD, status post PCI, peripheral vascular disease status post peripheral vascular PCI of the left lower extremity, hyperlipidemia, hypertension, and diabetes mellitus who presents for evaluation of atrial fibrillation with slow ventricular response follows with Dr. 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 To the best of the patient's knowledge he has not been diagnosed with atrial fibrillation in the past. However based upon previous dobutamine stress echocardiogram report from 06/08/2011 and a previous 24-hour Holter monitor report from 06/08/2011 it appears the patient did have episodes of atrial fibrillation. He appears to be unaware of this. He states that he does sense at times his heart rate beating differently and/or slower. When this happens he does not feel good in the chest. He also notes his breathing is off . He has not necessarily had ongoing nausea, emesis, or diaphoresis. There has been no near syncope or syncope. He denies a history of orthopnea, PND, or peripheral pitting edema. He states these episodes may last for 1-2 days. They will eventually go back to normal. During these episodes he tries to become more active to increase his heart rate where he feels better. He recently purchased a portable device to attach to his smart phone . He was recording his heart rate today. He noted it was irregular and slow. He subsequently presented to [facility] ED for evaluation. There he was found to be in atrial fibrillation with a slow ventricular response with ventricular rates reported between 30 and 40 bpm. He was subsequently brought into the hospital for further evaluation and care. His initial troponin I level was negative. His initial ECG did not demonstrate additional acute ECG changes. A chest x-ray suggested no acute changes. [] Past Medical History Allergies/Adverse Reactions: Allergies adhesive Allergy (Verified 09/09/17 16:11) Unknown lisinopril Allergy (Verified 09/09/17 16:11) Unknown Penicillins Allergy (Verified 09/09/17 16:11) Unknown Home Medications: Ambulatory Orders Medication Instructions Recorded Aspirin [Aspirin, Baby] 81 mg PO DAILY@0800 02/07/13 Clopidogrel Bisulfate [Plavix] 75 mg PO DAILY 02/07/13 Hydrocodone/Acetaminophen [Vicodin 1 tablet PO Q4H PRN PRN 02/07/13 Past Medical History (Chronic Problems): Chronic Problems Type 2 diabetes mellitus (Chronic) Hypertension (Chronic) CAD (coronary artery disease) (Chronic) PAD (peripheral artery disease) (Chronic) HLD (hyperlipidemia) (Chronic) Raynauds disease (Chronic) Surgical History: angioplasty, - - right inguinal hernia, s/p stenst Psychiatric History: No pertinent psych hx - *Family History Paternal History Items: Heart Disease Maternal History Items: Unknown Lives: Spouse/ Significant Other Smoking Status: Never smoker Tobacco Use: Non-smoker Alcohol: None Drugs: None Review of Systems - Review of Systems General: Denies: Fever, Night Sweats, Fatigue Cardiovascular: Reports: Chest Discomfort, Shortness of Breath, Palpitations. Denies: Orthopnea, PND, Peripheral Edema, Lightheadedness, Dizziness, Near Syncope, Syncope Respiratory: Reports: Shortness of Breath. Denies: Cough, Sputum Production, Hemoptysis Gastrointestinal: Denies: Hematemesis, Hematochezia, Melena Genitourinary: Denies: Dysuria, Hematuria Skin: Denies: Rash Subjectve: This is a 61-year-old white male who appears resting comfortably at the moment in no acute distress. Objective: Vital Signs Temp Pulse Resp BP Pulse Ox 97.8 F 52 L 18 137/73 H 95 09/09/17 18:57 09/09/17 19:06 09/09/17 18:57 09/09/17 18:57 09/09/17 18:57 Oxygen Flow Rate (L/min) 2 Oxygen Delivery Method Room Air Weight: 238 lb Body Mass Index (BMI) 36.1 General: Healthy Appearing, Awake, Alert, Oriented x 3, Cooperative, No Acute Distress HEENT: Atraumatic, Normocephalic, PERRL, EOMI, Sclera Non Icteric Neck: Supple, Good ROM, No JVD Lungs: Clear to auscultation Cardiovascular: Irregular Rhythm, Normal S1, Normal S2 Vascular: No Carotid Bruits Abdomen: Bowel Sounds Present, Soft, Non Tender Extremities: No Cyanosis, No Clubbing, No edema Neurological: No Focal Motor or Sensory Deficit Psych/Mental Status: Appropriate, Normal Affect 09/09/17 19:25: Troponin I < 0.015 Rhythm: Atrial fibrillation with slow ventricular response EKG: As noted above Stress Test: 10/13/2015: Exercise tolerance test: Byron protocol: 5 minutes and 15 seconds: 70% predicted maximal heart rate: Peak blood pressure 158/72 mmHg: Peak MET capacity of 7 METs 06/08/2011: Dobutamine stress echocardiogram: Reported as negative for ischemia greater than 100% maximal predicted heart rate; atrial fibrillation noted at peak exercise and intermittent during recovery Cardiac Cath: [facility]: Unavailable for review PCI: [facility]: Unavailable for review Holter monitor: 06/08/2011: Sinus rhythm; occasional APD's; atrial fibrillation noted for first 10 minutes of recording and did not return ; occasional nocturnal atrial salvos which are nonconducted; rare VPD's; no ventricular tachycardia CXR: Preliminary evaluation: No acute cardiopulmonary disease process appreciated 1 please see official report Assessment/Plan 1. Atrial fibrillation with slow ventricular response The patient has atrial fibrillation with slow ventricular response which based upon symptoms and his past documentation appears to be paroxysmal. This may be related to a combination of the patient's age, hypertension, cardiovascular condition, etc. His slow ventricular response may be related to his beta-nico therapy, however, underlying conduction system related disease cannot necessarily be excluded. At the moment based upon his slow ventricular response his beta blockers are being held. He has been placed on anticoagulant therapy with IV heparin. He will undergo laboratory follow-up, ECG follow-up, as well as an echocardiogram to evaluate his atrial size and his left ventricular size, wall motion, and systolic function. He will also undergo evaluation with a pharmacologic stress nuclear imaging study, as he states his peripheral vascular disease impairs him from walking on a treadmill, to evaluate for any obvious myocardial ischemia, based upon his symptoms and findings, that may be contributing to his underlying atrial dysrhythmias that would warrant reevaluation in the cardiac catheterization laboratory. Depending upon his clinical course, if there is no other etiology for his atrial fibrillation with slow ventricular response that is correctable, noting his need for beta-nico therapy based upon his history of underlying CAD, etc., he may need to be considered for future permanent pacemaker placement. 2. CAD status post PCI-remote The patient states he is undergone evaluation and care at the [facility] with 2 separate diagnostic cardiac catheterization procedures requiring 2 separate PCI procedures. He has been on medical management. He will undergo evaluation care as noted above. 3. Peripheral vascular disease The patient has undergone peripheral vascular evaluation and PCI of the left lower extremity under the direction of Dr. Jakob Wilburn. He states this peripheral vascular disease diagnosis does limit him with respect to his ambulatory abilities especially exercise abilities, etc. 4. Hyperlipidemia He will continue risk factor modification and care as deemed appropriate. 5. Hypertension His blood pressures will be monitored. He will continue medical management and follow-up. 6. Diabetes He will continue evaluation care per internal medicine. 7. Acute renal insufficiency His creatinine level is somewhat elevated. This will be followed during his hospitalization. His medications can be adjusted as needed. 8. Raynaud's phenomena He does state he has underlying Raynaud's phenomena. He is on amlodipine therapy at this time which may benefit him with respect to his Raynaud's phenomena as well as his other medical conditions. Comment: The above was discussed with the patient, his , and his sister. His case is also been previously discussed with the [facility] emergency department staff. This note was generated with Dragon dictation software. It may contain incorrect words, spelling, and punctuation that were not noted in checking the note before signing. 09/09/17 2259 <Electronically signed by Tex Coker MD> Date Tex Coker MD Cosigner Signature (if applicable): Date CC: Mian Wilburn III, MD; Jose Arnold MD; Tex Coker MD; Jakob Wilburn MD Signed BEDSIDE GLUCOSE Collected: 09/09/2017 Status: F Source: [facility] 10:26 PM [facility] REPOSITORY TYPE CODE TESTS RESULT OUT OF REFERENCE UNITS RANGE LAB L501.080 70-110 mg/dL High BEDSIDE GLU 154 Result Comment: MANAGEMENT OF PATIENT CARE PER NURSING PROTOCOL Performed By: #### L501.080 #### [facility] Laboratory Point of Care [address] [place] [address]. [place], [place] [address] TROPONIN-I Collected: 09/09/2017 Status: F Source: [facility] 10:05 PM [facility] REPOSITORY Order Comment: 'TROP' Serial specimen #1, #2 or #3: 3 TYPE CODE TESTS RESULT OUT OF RANGE REFERENCE UNITS LAB L501.4010 <0.045 ng/mL Normal < 0.015 TROPONIN-I Result Comment: TROPONIN-I EXPECTED VALUES <0.045 Negative 0.045 - 0.590 Consistent with Cardiac Damage > OR = 0.600 Critical Value Not every elevated troponin is indicative of LA. These values should be used with clinical judgement in examining the patient's clinical picture for diagnosis. To establish a diagnosis of LA versus myocardial injury, there must be a demonstrated rise and/or fall in the troponin values, in addition to ischemic symptoms, EKG changes, new regional wall motion abnormality, and/or angiographical evidence. PLEASE NOTE: REFERENCE RANGES EDITED 17 Performed By: #### L501.4010 #### [facility] Laboratory [address] [place], [address] EMERGENCY DEPARTMENT Observed: 09/09/2017 Status: F Source: [facility] SUMMARY 7:38 PM [facility] REPOSITORY [facility] Medical Records Department [address] [place] [address] Emergency Department Summary 09/09/17 1635 MR#: [id number] Acct: [id number] Name: NOMAN STONE Rep #: [id number] : 1955 61 From: Musa Carter MD PCP: Mian Wilburn III, MD Status: ADM SAM[facility] - ER Visit Summary Date of Service: 09/09/17 Chief Complaint: Palpitations History of Present Illness: The patient is a 61 M with history of coronary vascular disease status post stents by [address] George resents to the emergency palpitations. Patient states he has been having these intermittently for the past few months. He states that he has seen Dr. George, and was told that unless his heart rate was about 100 just a follow-up. The patient actually downloaded and alisson for his iPhone. It does have a quality assurance monitor. Today, he was having symptoms and was able to get a heart rhythm. The patient was in atrial fibrillation at a rate of 50. He denies being lightheaded. He denies any chest pain. He states I just do not feel well when it happens. He has no history of atrial fibrillation. He denies any recent change in medications. Physical Examination: Vital signs reviewed General: Well-nourished, well-developed Head: Normocephalic, atraumatic Eyes: Pupils equal and reactive, extraocular muscles intact Neck, supple, no lymphadenopathy Heart: Irregular rate and rhythm Respiratory: No distress, clear bilaterally Abdomen: Soft, nontender, nondistended, no peritoneal signs Back: Nontender Extremities: Nontender, no edema, no cords Skin: Normal color no rash Neuro: Alert and oriented, no focal or lateralizing deficits Test Results: [] Emergency Department Course and Treatment: The patient presents with new onset atrial fibrillation. He was having some short pauses of approximately 3 seconds. The lowest that his heart would get in the upper 30s. He was never hypotensive. He complained of some generalized malaise, but had no chest pain or dyspnea. I do not feel this represents an acute coronary syndrome. Screening labs are unremarkable. I did discuss the patient with Dr. Coker. He was in agreement with plan for anticoagulation. We will hold the patient's Coreg. He will be admitted to telemetry for anticoagulation and further workup of his new onset A. fib. Treatment Plan: [] Disposition: Admission Impression: New onset atrial fibrillation This note was generated with TUNJI dictation software. It may contain incorrect words, spelling, and punctuation that were not noted in review of the chart prior to signing ED Disposition - Plan for ED Patient: Disposition: Acute Care Hospital [facility] Chief Complaint: Chest Pain What to do if you have Problems For any increased pain, shortness of breath, bleeding, nausea or vomiting, chest pain, or any unexpected problems, contact your Primary Care Provider. Call [facility] ([phone]) or report to the closest Emergency Room. Call 911 if necessary. 09/09/171937 <Electronically signed by Musa Carter MD> Date Musa Carter MD Cosigner Signature (If Indicated): Date CC: Mian Wilburn III, MD HISTORY AND PHYSICAL Observed: 09/09/2017 Status: F Source: [facility] EXAM 6:50 PM [facility] REPOSITORY [facility] Medical Records Department [address] [place] [id number] History and Physical 09/09/17 1803 MR#: [id number] Acct: [id number] Name: NOMAN STONE Rep #: [id number] : 1955 61 From: Felecia Roach MD PCP: Mian Wilburn III, MD Status: ADM SAMMY Y Location: [place] [address] Problem List (1) Bradycardia Status: Acute (2) A-fib Status: Acute Qualifiers: Atrial fibrillation type: unspecified Qualified Code(s): I48.91 - Unspecified atrial fibrillation (3) Type 2 diabetes mellitus Status: Chronic Qualifiers: Diabetes mellitus intermediate manager insulin use: unspecified detention insulin use status Diabetes mellitus complication status: with unspecified complications Qualified Code(s): E11.8 - Type 2 diabetes mellitus with unspecified complications (4) Hypertension Status: Chronic Qualifiers: Hypertension type: essential hypertension Qualified Code(s): I10 - Essential (primary) hypertension (5) CAD (coronary artery disease) Status: Chronic Qualifiers: Coronary Disease-Associated Artery/Lesion type: unspecified vessel or lesion type [place] vs. transplanted heart: unspecified whether [place] or transplanted heart Associated angina: with unspecified angina Qualified Code(s): I25.119 - Atherosclerotic heart disease of [place] coronary artery with unspecified angina pectoris (6) PAD (peripheral artery disease) Status: Chronic History of Present Illness Date of Admission: 09/09/17 Chief Complaint: Palpitations The patient is a 61 year old M with PMHx of CAD s/p stent, hypertension, Type 2 DM, PAD s/p stent who follows with Dr. Arnold, intermittently complaining of palpitations but any time an EKG is done in the doctor's office, it appears normal. 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 He has an alisson on his phone which allows him to take his heart rate. 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 He used the alisson and was told that he has atrial fibrillation. He decided to come to the ED. He denied any dizziness or orthopnea or PND or leg swelling. He also has history of chronic back pain and is on chronic pain medications. His vitals in the ED showed heart rates ranging between 39 and 57. His Blood Pressure has been stable. Labs are unremarkable except for CKD which appears to be his baseline. Chest X-ray is negative for any acute cardiopulmonary process. Past Medical History Past Medical History (Chronic Problems): Chronic Problems Type 2 diabetes mellitus (Chronic) Hypertension (Chronic) CAD (coronary artery disease) (Chronic) PAD (peripheral artery disease) (Chronic) Allergies adhesive Allergy (Verified 09/09/17 16:11) Unknown lisinopril Allergy (Verified 09/09/17 16:11) Unknown Penicillins Allergy (Verified 09/09/17 16:11) Unknown Home Medications: Ambulatory Orders Medication Instructions Recorded Aspirin [Aspirin, Baby] 81 mg PO DAILY@0800 02/07/13 Clopidogrel Bisulfate [Plavix] 75 mg PO DAILY 02/07/13 Hydrocodone/Acetaminophen [Vicodin 1 tablet PO Q4H PRN PRN 02/07/13 Surgical History: - - right inguinal hernia, s/p stenst Psychiatric History: No pertinent psych hx Lives: Spouse/ Significant Other Smoking Status: Never smoker Tobacco Use: Non-smoker Alcohol: None Drugs: None - *Family History Paternal History Items: Heart Disease Maternal History Items: Unknown Review of Systems Constitutional: Denies: Anorexia, Chills, Fever, Night Sweats, Weakness, Weight Change Eyes: Denies: Blurred vision, Cataracts, Conjunctivae Inflammation, Double vision, Pain, Redness HEENT: Denies: Difficulty Hearing, Difficulty Swallowing, Head Aches, Hearing Changes, Sinus Congestion, Sinus Drainage Cardiovascular: Reports: Palpitations. Denies: Chest Pain, Claudication, Chest Pressure, Light Headedness, Orthopnea, Paroxysmal Noc. Dyspnea Respiratory: Denies: Cough, Hemoptysis, Shortness of breath at rest, Shortness of breath upon exertion, Sputum production Gastrointestinal: Denies: Abdominal Pain, Constipation, Hematemesis, Hematochezia, Nausea, Vomiting Genitourinary: Denies: Dysuria, Frequency, Incontinence Musculoskeletal: Denies: Joint Pain, Joint stiffness, Joint swelling, Joint Tenderness Skin: Denies: Pruritis, Rash, Wounds Neurological: Denies: Difficulty swallowing, Focal weakness, Numbness, Tingling Psychiatric: Denies: Anxiety, Depression, Homicidal Ideations, Suicidal Ideations Hematologic/ Lymphatic: Denies: Easy Bruising, Easy Bleeding VTE Information - Inpt Only VTE Present on Admission: No VTE Pharm Prophylaxis ordered?: Yes Patient Problems: Active and Suspected Problems Bradycardia (Acute) A-fib (Acute) - Physical Exam General: Alert, Oriented x3, Cooperative, No apparent distress HEENT: Atraumatic, PERRLA, EOMI, Normocephalic Oral: Moist Mucosa Neck: Supple, No JVD, Negative Carotid Bruits Lungs: Clear to auscultation, Normal air movement Cardiovascular: Regular rate, Normal S1, Normal S2, No murmurs, Irregular Rate Abdomen: Bowel Sounds Present, Soft, Non Tender, Non-Distended, No Hepato-splenomegaly Extremities: No edema Skin: No rashes, No breakdown Musculoskeletal: No Tenderness to Palpation of Joints or Extremities Lymphatic: No Cervical, Supraclavicular, or Inguinal Adenopathy Neurological: Cranial nerves II-XII grossly intact, Neuro grossly intact Psych/Mental Status: Normal Affect, Appropriate Vital Signs Temp Pulse Resp BP Pulse Ox 97.8 F 52 L 16 119/87 H 94 09/09/17 16:06 09/09/17 17:55 09/09/17 17:55 09/09/17 17:55 09/09/17 17:55 Oxygen Flow Rate (L/min) 2 Oxygen Delivery Method Nasal Cannula Weight: 104.326 kg Body Mass Index (BMI) 34.9 Laboratory Tests Past 24 Hrs WBC 9.3 Assessment/Plan All Active Problems Bradycardia (Acute) A-fib (Acute) Acute renal failure (Acute) 61 year old M with PMHx of CAD s/p stent, hypertension, Type 2 DM, PAD s/p stent who follows with Dr. Arnold, intermittently complaining of palpitations but any time an EKG is done in the doctor's office, it appears normal. 1. Atrial fibrillation, newly diagnosed, CHADS score 3, Bradycardic, started on heparin IV drip Plan: Admit to PCU, continue on heparin drip, cardiology consult -Dr. Coker(ED already discussed with him), 2D echo, trend troponins 2. Bradycardia, EKG shows atrial fibrillation, on amlodipine and carvedilol, will hold both amlodipine and carvedilol, will follow up on 2D echo, cardiology consulted 3. Hypertension, controlled, continue home medication 4. CAD status post stent/PAD status post stent, on aspirin, Plavix, statins, isosorbide, beta-nico on hold for now 5. Type II DM, on insulin, will continue home insulin regimen, with insulin sliding scale as well as Accu-Cheks 6. Hyperlipidemia, on statins 7. CKD stage III, creatinine is about his baseline, will continue to monitor 8. DVT prophylaxis -started on heparin drip Code Visit Inpatient E AND M: [id number] Init Hosp L3 09/09/17 1850 <Electronically signed by Felecia Roach MD> Date [facility] Signature: Date (if applicable) CC: Felecia Roach MD; Mian Wilburn III, MD Signed CHEST 1 VIEW Observed: 09/09/2017 Status: F Source: [place] (PORTABLE) 4:14 PM [facility] REPOSITORY [facility] Imaging Services [address] [place] [address] Chest 1 View (Portable) MR#: [id number] Acct: [id number] Name: NOMAN STONE Rep #: [id number] : 1955 M 61 From: Yvon Oscar MD PCP: Mian Wilburn III, MD Status: REG ER Study: Chest 1 View (Portable) Date of Exam: 09/09/17 Exam# [id number] Ordering Dr: Musa Carter MD STUDY: X-RAY CHEST REASON FOR EXAM: Male, 61 years old. Chest pain TECHNIQUE: Single AP portable view of the chest. COMPARISON: 02/05/2015. FINDINGS: The lungs are clear and expanded. There is no demonstrated pleural abnormality. Normal size heart. Normal mediastinum and stefanie. Normal visualized pulmonary arteries. Normal visualized aortic arch and descending thoracic aorta. Normal visualized thoracic spine. Normal visualized ribs, clavicles, and shoulders. There is no demonstrated abnormality of the visualized soft tissue structures of the upper abdomen. RAD/Chest 1 View (Portable) IMPRESSION: Normal x-ray examination of the chest. 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 CBC W/DIFF, AUTOMATED Collected: 09/09/2017 Status: F Source: [place] 4:09 PM [facility] REPOSIT[facility] TYPE CODE TESTS RESULT OUT OF RANGE REFERENCE UNITS LAB L100.1000 4.4-11.0 K/mm3 Normal WBC 9.3 LAB L100.1200 4.6-6.2 M/mm3 Normal RBC 5.09 LAB L100.1300 13.0-16.5 g/dl Normal HGB 15.4 LAB L100.1400 40-54 % Normal HCT 45.5 LAB L100.1500 80-94 fL Normal MCV 89.4 LAB L100.1600 27.0-32.0 pg Normal MCH 30.3 LAB L100.1700 32-36 g/gl Normal MCHC 33.8 LAB L100.1810 11.6-14.6 % Normal RDW CV 13.5 LAB L100.1820 35.1-43.9 fl Normal RDW SD 43.8 LAB L100.1900 150-450 K/mm3 Normal PLT 218 LAB L100.2000 6.2-12.0 fl Normal MPV 10.2 LAB L100.2100 47-70 % Normal NEUT% 47.3 LAB L100.2200 19-41 % Normal LY% 38.3 LAB L100.2300 0-10 % Normal MONO% 10.0 LAB L100.2400 0-5 % Normal EO% 3.6 LAB L100.2500 0-1 % Normal BASO% 0.4 LAB L100.2550 0.0-0.9 % Normal IM GRAN % 0.400 Result Comment: IG% - Immature Granulocytes (promyelocytes, myelocytes and metamyelocytes) > 1% indicates that a LEFT SHIFT is Present. LAB L100.2620 2.0-7.7 X10 3/uL Normal Absolute Neut 4.4 LAB L100.2720 0.83-4.51 X10 3/ul Normal Absolute Lymph 3.56 Performed By: #### L100.0100 #### [facility] [place], [address] PROTHROMBIN TIME W/INR Collected: 09/09/2017 Status: F Source: [place] 4:09 PM [facility] REPOSIT[facility] TYPE CODE TESTS RESULT OUT OF RANGE REFERENCE UNITS LAB L300.4150 11.7-14.9 SECONDS Normal PROTIME 13.1 LAB L300.4200 Normal INR 1.0 Performed By: #### L300.3900 #### [facility] [address] [place], [address] BASIC METABOLIC Collected: 09/09/2017 Status: F Source: [place] PROFILE (BMP) 4:09 PM [facility] REPOSITORY TYPE CODE TESTS RESULT OUT OF RANGE REFERENCE UNITS LAB L501.0100 74-106 mg/dL High GLU 266 Result Comment: Glucose result greater than or equal to 200 mg/dL suggests DIABETES MELLITUS per A.D.A. criteria. Please note revised GLUCOSE reference range effective 2017. LAB L501.1000 7-18 mg/dL High BUN 20 LAB L501.1100 0.70-1.30 mg/dL High CREAT,SERUM 1.41 Result Comment: The validity of the calculated GFR AND GFRAA in patients over 70 years has not been determined. Clinical correlation is essential. LAB L501.1110 >60 mL/min Low EST GFR 54 Result Comment: Non- GFR Calc LAB L501.1115 >60 mL/min Normal EST GFR - AA 65 Result Comment: GFR Calc LAB L501.1255 ml/min Normal Estimated CRCL 52.55 LAB L501.1300 10-20 RATIO Normal BUN/CRE 14.2 LAB L501.2200 8.5-10 mg/dL Normal .1 CA 9.1 LAB L501.5300 136-14 mmol/L Normal 5 NA 138 LAB L501.5600 3.5-5. mmol/L Normal 1 K 3.6 LAB L501.5900 98-107 mmol/L Normal CL 104 LAB L501.6100 21.0-3 mmol/L Normal 2.0 CO2 28.0 LAB L501.6200 5-15 Normal GAP 6 Performed By: #### L500.2500, L501.4010, L501.5200, L501.9520 #### [facility] [address] [place], [place], [address] TROPONIN-I Collected: 09/09/2017 Status: F Source: [place] 4:09 PM [facility] REPOSITORY TYPE CODE TESTS RESULT OUT OF RANGE REFERENCE UNITS LAB L501.4010 <0.045 ng/mL Normal < 0.015 TROPONIN-I Result Comment: TROPONIN-I EXPECTED VALUES <0.045 Negative 0.045 - 0.590 Consistent with Cardiac Damage > OR = 0.600 Critical Value Not every elevated troponin is indicative of LA. These values should be used with clinical judgement in examining the patient's clinical picture for diagnosis. To establish a diagnosis of LA versus myocardial injury, there must be a demonstrated rise and/or fall in the troponin values, in addition to ischemic symptoms, EKG changes, new regional wall motion abnormality, and/or angiographical evidence. PLEASE NOTE: REFERENCE RANGES EDITED 17 Performed By: #### L500.2500, L501.4010, L501.5200, L501.9520 #### [facility] [address] [place], [place], [id number] MAGNESIUM Collected: 09/09/2017 Status: F Source: [place] 4:09 PM [facility] REPOSITORY TYPE CODE TESTS RESULT OUT OF RANGE REFERENCE UNITS LAB L501.5200 1.6-2.6 mg/dL Normal MG 2.0 Performed By: #### L500.2500, L501.4010, L501.5200, L501.9520 #### [facility] [address] [place], [place], [id number] THYROID STIM HORMONE Collected: 09/09/2017 Status: F Source: [place] (TSH) 4:09 PM [facility] REPOSITORY TYPE CODE TESTS RESULT OUT OF RANGE REFERENCE UNITS LAB L501.9520 0.358-3.74 uIU/mL High TSH 3.98 Performed By: #### L500.2500, L501.4010, L501.5200, L501.9520 #### [facility] [address] [place], [address] PARTIAL THROMBOPLAST Collected: 09/09/2017 Status: F Source: [place] TIME 4:09 PM [facility] REPOSITORY TYPE CODE TESTS RESULT OUT OF RANGE REFERENCE UNITS LAB L300.4310 24.1-36.2 Seconds Normal PTT 27.9 Performed By: #### L300.4310 #### [facility] [address] [place], [address] PROGRESS Observed: 05/15/2017 Status: COMPLETED Source: [place] 2:15 PM [facility] REPOSITORY HNO ID: [id number] Author: Katrin Rivas) Dede Service: (none) Author Type: Manager Quality Systems Type: Progress Notes Filed: 05/15/2017 2:16 PM Note Text: The patient has been identified by name and date of : YES I have scheduled the patient for an appointment on 05/10/2017. The patient will report to the lab prior to the visit. I have pended the following lab orders: Eye Exam scheduled 06-07-17 Dr. donahue [facility] Documentation 05/15/2017 Opts out of [facility] No Appointments Scheduled Scheduled PCP Appt DM2 with No AMADOR Record Requested Opthy Appt Yes Appt Date 06/07/2017 Katrin Valadez MA PROGRESS Observed: 05/01/2017 Status: COMPLETED Source: [place] 11:05 AM [facility] REPOSITORY HNO ID: [id number] Author: Katrin Valadez Service: (none) Author Type: Manager Quality Systems Type: Progress Notes Filed: 05/13/2017 10:13 PM Note Text: [facility] TEAMLET DOCUMENTATION Provider Action/FYI: patient needs appointment , labs ordered, add Hep C screening, Needs Eye Exam, PSA, Prevnar 13 Vac PSR Action/FYI: Teamlet has identified patient by name and date of . Team:Dr. Krystin Wilburn III, MD, JACKIE Esqueda, Katrin Valadez MA, London Ashby LPN, Claudia Arriaza CMA, Coco Olivo PSR, Coco Penaloza, RN,BSN, CPHQ, CCM, ? Last Office Visit:04/04/2017 ? Next Office Visit: Visit date not found ? Last BP/Labs: Blood Pressure: Last 3 Encounter BP Readings: Date: BP: 04/04/2017 116/68 01/08/2017 128/86 11/02/2016 100/70 Lipids: Cholesterol, Total (mg/dL) Date Value 02/11/2015 115 HDL Cholesterol (mg/dL) Date Value 02/11/2015 30 LDL Cholesterol (mg/dL) Date Value 02/11/2015 38 LDL (no units) Date Value 01/22/2017 74 Triglyceride (mg/dL) Date Value 02/11/2015 234 HGB A1C: Lab Results Component Value Date HBA1C 9.5 04/02/2016 HBA1C 8.8 02/11/2015 TSH: TSH (uU/mL) Date Value 02/11/2015 3.620 ) Care Gap: DM - Need Urine Albumin / NOT checked in last 12 months Needs dilated eye exam - HM overdue Last HGBA1C is NOT under 9% Plan: ? Confirm PCP / Status ? Type of appointment needed: Dr. Wilburn ? Consultation Appointments: Labs, HM and Immunization: Diabetic Eye Exam Albumin Urine HgbA1c BMP Hep C Screening PSA Lipids Katrin Valadez MA CNPTOUTREACH Observed: 05/01/2017 Status: COMPLETED Source: [place] 12:00 AM [facility] REPOSITORY Patient Outreach (FAMPWS) NOMAN STONE ([id number]) 1955 M Date Time Provider Department 05/01/17 KATRIN VALADEZ) [facility]AMPWS During your visit today, we recorded the following information about you: Katrin Valadez MA 05/13/2017 10:13 PM Signed PHMA TEAMLET DOCUMENTATION Provider Action/FYI: patient needs appointment , labs ordered, add Hep C screening, Needs Eye Exam, PSA, Prevnar 13 Vac PSR Action/FYI: Teamlet has identified patient by name and date of . Team:Dr. Krystin Wilburn III, MD, JACKIE Esqueda, Katrin Valadez MA, London Ashby LPN, Claudia Arriaza CMA, Coco Olivo PSR, Coco Penaloza, RN,BSN, CPHQ, CCM, ? Last Office Visit:04/04/2017 ? Next Office Visit: Visit date not found ? Last BP/Labs: Blood Pressure: Last 3 Encounter BP Readings: Date: BP: 04/04/2017 116/68 01/08/2017 128/86 11/02/2016 100/70 Lipids: Cholesterol, Total (mg/dL) Date Value 02/11/2015 115 HDL Cholesterol (mg/dL) Date Value 02/11/2015 30 LDL Cholesterol (mg/dL) Date Value 02/11/2015 38 LDL (no units) Date Value 01/22/2017 74 Triglyceride (mg/dL) Date Value 02/11/2015 234 HGB A1C: Lab Results Component Value Date HBA1C 9.5 04/02/2016 HBA1C 8.8 02/11/2015 TSH: TSH (uU/mL) Date Value 02/11/2015 3.620 ) Care Gap: DM - Need Urine Albumin / NOT checked in last 12 months Needs dilated eye exam - HM overdue Last HGBA1C is NOT under 9% Plan: ? Confirm PCP / Status ? Type of appointment needed: Dr. Wilburn ? Consultation Appointments: Labs, HM and Immunization: Diabetic Eye Exam Albumin Urine HgbA1c BMP Hep C Screening PSA Lipids SEBASTIAN Bowling MA 05/15/2017 2:16 PM Signed The patient has been identified by name and date of : YES I have scheduled the patient for an appointment on 05/10/2017. The patient will report to the lab prior to the visit. I have pended the following lab orders: Eye Exam scheduled 06-07-17 Dr. donahue [facility] Documentation 05/15/2017 Opts out of [facility] No Appointments Scheduled Scheduled PCP Appt DM2 with No AMADOR Record Requested Opthy Appt Yes Appt Date 06/07/2017 Katrin Valadze MA Allergies As of Date: 05/01/2017 Noted Allergy Reaction ADHESIVE 05/12/2008 2 - Rash Comments: Redness to skin LISINOPRIL 11/17/2010 3 - Cough PENICILLINS 06/22/2005 16 - Unknown Comments: childhood Date Reviewed: 04/04/2017 Reviewed by: Haily Pelayo Surg Tech - Fully Assessed Reason for Visit: PHMA/Care Gap Outreach [3605] Primary Visit Diagnosis:Need for hepatitis C screening test [Z11.59] Other Visit Diagnosis:Screening PSA (prostate specific antigen) [Z12.5] Order(s):HEP C AB IA W/CONF SCRN [ACZCFU6C] Order #: [id number] FUTURE PSA/PROSTSPECAG DIAG [SQPSA] Order #: [id number] FUTURE Prescriptions as of 05/01/2017 Sig: ATORVASTATIN 80 MG TABLET Take 1 tablet by mouth once d* LORAZEPAM 0.5 MG TABLET Take 1 tablet by mouth twice * HYDROCODONE 5 MG-ACETAMINOPHE* Take 1 tablet by mouth twice * HYDROCODONE 5 MG-ACETAMINOPHE* Take 1 tablet by mouth twice * HYDROCODONE 5 MG-ACETAMINOPHE* Take 1 tablet by mouth twice * X LANTUS U-100 INSULIN 100 UNIT* INJECT 10 UNITS UNDER THE SKI* AMLODIPINE 10 MG TABLET Take 1 tablet by mouth once d* GEMFIBROZIL 600 MG TABLET Take 0.5 tablets by mouth twi* HYDROCHLOROTHIAZIDE 12.5 MG C* TAKE 1 CAPSULE BY MOUTH ONCE * CLOPIDOGREL 75 MG TABLET Take 1 tablet by mouth once d* DULAGLUTIDE 1.5 MG/0.5 ML SUB* Inject 1.5 mg subcutaneously * LOSARTAN 25 MG TABLET Take 1 tablet by mouth once d* ISOSORBIDE MONONITRATE ER 60 * Take 1 tablet by mouth once d* CARVEDILOL 25 MG TABLET Take 1 tablet by mouth twice * MAGNESIUM OXIDE 500 MG CAPSULE Take 500 mg by mouth once malgorzata* INSULIN GLARGINE (U-100) 100 * Inject 30 Units subcutaneousl* INSULIN SYRINGE-NEEDLE U-100 * 10 Units once daily. NITROGLYCERIN 0.4 MG SUBLINGU* Dissolve 1 tablet under the t* BLOOD SUGAR DIAGNOSTIC STRIPS TEST BLOOD SUGAR ONCE DAILY. * CHOLECALCIFEROL (VITAMIN D3) * Take 1 capsule by mouth once * Patient taking differently: Take 5,000 Units by mouth onc* ECOTRIN LOW STRENGTH 81 MG TA* Take one(1) tablet daily. Problem List As Of Date 05/01/2017 Noted Resolved Raynaud's syndrome [I73.00] HTN (hypertension) [I10] Priority: C More... Hyperlipidemia [E78.5] More... PERIPH VASCULAR DIS NOS [I73.9] INVALID FOR* LUMBAGO [M54.5] INVALID FOR* ASCVD [I25.10] INVALID FOR* Anxiety state [F41.1] INVALID FOR* Skin lesion [L98.9] INVALID FOR* Peripheral arterial disease [I73.9] INVALID FOR* More... Parotid discomfort [K11.9] INVALID FOR* Diabetes mellitus (HCC) [E11.9] INVALID FOR*08/28/2013 Anxiety [F41.9] INVALID FOR* GERD (gastroesophageal reflux disease) [K21.9] INVALID FOR* Low testosterone [E34.9] INVALID FOR* Diabetes mellitus type 2 with peripheral artery*INVALID FOR* More... SUMMARY INVALID FOR*02/14/2015 Priority: Mild More... 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 CAD (coronary artery disease) [I25.10] INVALID FOR* Priority: B More... Unstable angina (HCC) [I20.0] INVALID FOR* Priority: A More... 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 REPOSITORY HNO ID: [id number] Author: Mian Wilburn III Service: (none) Author Type: Physician Type: Progress Notes Filed: 04/04/2017 6:05 PM Note Text: SUBJECTIVE: This is a 61 year old male that is here today for Chronic Medical Conditions. 1. diabetes mellitus II: doing well with trulicity 1.5 mg qwk. He has not committed to a diabetic diet and is limited with walking because of his claudication. 2. hypertension 3. hyperlipidemia 4. freq constipation 5. taking norco 1/day after work to tx claudication /leg pain. He is still able to work but would be limited if not able to take the hydrocodone for pain relief. He has not had increased doses. He has had stents placed in the left lower extremity. The disease in his right lower extremity is such that surgery and stenting are not options. 6. episodes of burning pain both feet, josé miguel at night. Helped by sitting up with legs dependent. 7. pain R shoulder. Present for mos. worse with raising RUE above shoulder height. PAST MEDICAL HISTORY Diagnosis Date - Diabetes mellitus ([facility]) 11/17/2010 - Essential hypertension, benign - GERD (gastroesophageal reflux disease) 11/17/2010 - Low testosterone 12/12/2011 - Other and unspecified hyperlipidemia - PAD (peripheral artery disease) ([facility]) - Raynaud's syndrome - Shift work sleep disorder 05/03/2015 - Type 2 diabetes mellitus with stage 3 chronic kidney disease, with long-term current use of insulin ([facility]) 12/09/2015 - Type II or unspecified type diabetes mellitus with peripheral circulatory disorders, uncontrolled(250.72) 08/28/2013 Current Outpatient Prescriptions on File Prior to Visit: LANTUS 100 unit/mL injection INJECT 10 UNITS UNDER THE SKIN DAILY AT BEDTIME WITH A SYRINGE amLODIPine (NORVASC) 10 mg tablet Take 1 tablet by mouth once daily. gemfibrozil (LOPID) 600 mg tablet Take 0.5 tablets by mouth twice daily. Hydrochlorothiazide 12.5 mg capsule TAKE 1 CAPSULE BY MOUTH ONCE DAILY LORazepam (ATIVAN) 0.5 mg tab Take 1 tablet by mouth twice daily as needed. FOR ANXIETY clopidogrel (PLAVIX) 75 mg tablet Take 1 tablet by mouth once daily. dulaglutide (TRULICITY) 1.5 mg/0.5 mL pnij Inject 1.5 mg subcutaneously once each week. Inject once per week. Discard Pen After HYDROcodone-acetaminophen (NORCO) 5-325 mg per tablet Take 1 tablet by mouth every 8 hours as needed for Pain. losartan (COZAAR) 25 mg tablet Take 1 tablet by mouth once daily. isosorbide mononitrate ER (IMDUR) 60 mg 24 hr tablet Take 1 tablet by mouth once daily. carvedilol (COREG) 25 mg tablet Take 1 tablet by mouth twice daily with meals. Magnesium Oxide 500 mg cap Take 500 mg by mouth once daily. insulin glargine (LANTUS) 100 unit/mL injection Inject 30 Units subcutaneously daily at bedtime. Via Syringe atorvastatin (LIPITOR) 80 mg tablet Take 1 tablet by mouth once daily. Insulin Syringe-Needle U-100 (BD INSULIN SYRINGE ULTRAFINE) 0.3 mL 31 gauge x 5/16 syrg 10 Units once daily. nitroglycerin sublingual (NITROSTAT) 0.4 mg SL tablet Dissolve 1 tablet under the tongue as needed. DISSOLVE ON TONGUE FOR CHEST PAIN. IF NO PAIN RELIEF, CALL 911 blood sugar diagnostic (FREESTYLE LITE STRIPS) test strip TEST BLOOD SUGAR ONCE DAILY. DX: E11.65. Insulin: No Cholecalciferol, Vitamin D3, 1,000 unit cap Take 1 capsule by mouth once daily. (Patient taking differently: Take 5,000 Units by mouth once daily.) aspirin(ECOTRIN LOW STRENGTH 81 MG TAB) Take one(1) tablet daily. No current facility-administered medications on file prior to visit. FAMILY HISTORY Problem Relation Age of Onset - Heart Father - Hypertension Maternal Grandmother - GI Maternal Grandmother - Heart Paternal Grandfather - Cancer Mother lung - Cancer Sister Non hodgkins lymphoma - Diabetes Maternal Grandfather Social History Substance Use Topics - Smoking status: Never Smoker - Smokeless tobacco: Never Used - Alcohol use Yes BP 116/68 (BP Site: Right Arm, BP Position: Sitting, BP Cuff Size: Large Adult) Pulse 72 Temp 37.3 ?C (99.1 ?F) (Right Tympanic) Resp 12 Wt 104.8 kg (231 lb) BMI 35.12 kg/m2 . OBJECTIVE: APPEARANCE Well appearing, alert, in no acute distress, well-hydrated, well nourished., Obese EXTREMITIES : Right shoulder. Painful lateral raising to 180?, especially with lowering of the right shoulder. No localized tenderness of the muscles or bones around the right shoulder. Normal muscle tone and without atrophy. Full painless range of motion of the head and neck without shoulder pain. No neck muscle spasm. Grade 5/5 strength without pain with right speeds, empty can, resisted internal rotation, biceps, triceps. Grade 5/5 strength with pain with resisted external rotation. Normal exam of the right shoulder. Dorsal pedal pulses are absent bilaterally and he has absence of hair in a stocking distribution consistent with peripheral arteriosclerosis. Some mild diminished monofilament sensation bottoms of both feet. Lab 04/01/17: HbA1c 7.9 glu 127 creat 1.24 GFR 62 Na 138 K 3.6 Ca 9.3 Mg 2.1 Chol 150 TG 266 HDL 38 LDL 59 LFTs normal T4 1.0 alb/creat 60.0 ASSESSMENT: diabetes mellitus II with peripheral arteriosclerosis and peripheral neuropathy --some worsening neuropathy Improved diabetic control since starting trulicity--near goal. Painful claudication requiring long-term prescribed opiate hypertension--at goal hyperlipidemia--at goal obesity PLAN: healthy weight losing diet and regular exercise eat less sugar, bread, potato, pasta, rice, corn, corn syrup, saturated fats eat slower and smaller portions same medications recheck HbA1c 3 mos. avoid raising right arm above shoulder height MIROSLAVA Sainz MD, III MD [facility] website checked and validated. All prescriptions have been APPROPRIATELY filled. No suspicious activity was identified.- 04/04/2017 by Mian Wilburn III MD CNOV Observed: 04/04/2017 Status: COMPLETED Source: [place] 1:40 PM [facility] REPOSITORY Office Visit (FAMPWS) NOMAN STONE ([id number]) 1955 M Date Time Provider Department 04/04/17 1:40 PM MIAN WILBURN III During your visit today, we recorded the following information about you: Temperature Pulse Respiration Blood pressure 99.1 degrees 72/minute minute 116/68 Weight 104.8 kg Mian Wilburn III MD 04/04/2017 6:05 PM Signed SUBJECTIVE: This is a 61 year old male that is here today for Chronic Medical Conditions. 1. diabetes mellitus II: doing well with trulicity 1.5 mg qwk. He has not committed to a diabetic diet and is limited with walking because of his claudication. 2. hypertension 3. hyperlipidemia 4. freq constipation 5. taking norco 1/day after work to tx claudication /leg pain. He is still able to work but would be limited if not able to take the hydrocodone for pain relief. He has not had increased doses. He has had stents placed in the left lower extremity. The disease in his right lower extremity is such that surgery and stenting are not options. 6. episodes of burning pain both feet, josé miguel at night. Helped by sitting up with legs dependent. 7. pain R shoulder. Present for mos. worse with raising RUE above shoulder height. PAST MEDICAL HISTORY Diagnosis Date - Diabetes mellitus ([facility]) 11/17/2010 - Essential hypertension, benign - GERD (gastroesophageal reflux disease) 11/17/2010 - Low testosterone 12/12/2011 - Other and unspecified hyperlipidemia - PAD (peripheral artery disease) ([facility]) - Raynaud's syndrome - Shift work sleep disorder 05/03/2015 - Type 2 diabetes mellitus with stage 3 chronic kidney disease, with long-term current use of insulin ([facility]) 12/09/2015 - Type II or unspecified type diabetes mellitus with peripheral circulatory disorders, uncontrolled(250.72) 08/28/2013 Current Outpatient Prescriptions on File Prior to Visit: LANTUS 100 unit/mL injection INJECT 10 UNITS UNDER THE SKIN DAILY AT BEDTIME WITH A SYRINGE amLODIPine (NORVASC) 10 mg tablet Take 1 tablet by mouth once daily. gemfibrozil (LOPID) 600 mg tablet Take 0.5 tablets by mouth twice daily. Hydrochlorothiazide 12.5 mg capsule TAKE 1 CAPSULE BY MOUTH ONCE DAILY LORazepam (ATIVAN) 0.5 mg tab Take 1 tablet by mouth twice daily as needed. FOR ANXIETY clopidogrel (PLAVIX) 75 mg tablet Take 1 tablet by mouth once daily. dulaglutide (TRULICITY) 1.5 mg/0.5 mL pnij Inject 1.5 mg subcutaneously once each week. Inject once per week. Discard Pen After HYDROcodone-acetaminophen (NORCO) 5-325 mg per tablet Take 1 tablet by mouth every 8 hours as needed for Pain. losartan (COZAAR) 25 mg tablet Take 1 tablet by mouth once daily. isosorbide mononitrate ER (IMDUR) 60 mg 24 hr tablet Take 1 tablet by mouth once daily. carvedilol (COREG) 25 mg tablet Take 1 tablet by mouth twice daily with meals. Magnesium Oxide 500 mg cap Take 500 mg by mouth once daily. insulin glargine (LANTUS) 100 unit/mL injection Inject 30 Units subcutaneously daily at bedtime. Via Syringe atorvastatin (LIPITOR) 80 mg tablet Take 1 tablet by mouth once daily. Insulin Syringe-Needle U-100 (BD INSULIN SYRINGE ULTRAFINE) 0.3 mL 31 gauge x 5/16 syrg 10 Units once daily. nitroglycerin sublingual (NITROSTAT) 0.4 mg SL tablet Dissolve 1 tablet under the tongue as needed. DISSOLVE ON TONGUE FOR CHEST PAIN. IF NO PAIN RELIEF, CALL 911 blood sugar diagnostic (FREESTYLE LITE STRIPS) test strip TEST BLOOD SUGAR ONCE DAILY. DX: E11.65. Insulin: No Cholecalciferol, Vitamin D3, 1,000 unit cap Take 1 capsule by mouth once daily. (Patient taking differently: Take 5,000 Units by mouth once daily.) aspirin(ECOTRIN LOW STRENGTH 81 MG TAB) Take one(1) tablet daily. No current facility-administered medications on file prior to visit. FAMILY HISTORY Problem Relation Age of Onset - Heart Father - Hypertension Maternal Grandmother - GI Maternal Grandmother - Heart Paternal Grandfather - Cancer Mother lung - Cancer Sister Non hodgkins lymphoma - Diabetes Maternal Grandfather Social History Substance Use Topics - Smoking status: Never Smoker - Smokeless tobacco: Never Used - Alcohol use Yes BP 116/68 (BP Site: Right Arm, BP Position: Sitting, BP Cuff Size: Large Adult) Pulse 72 Temp 37.3 ?C (99.1 ?F) (Right Tympanic) Resp 12 Wt 104.8 kg (231 lb) BMI 35.12 kg/m2 . OBJECTIVE: APPEARANCE Well appearing, alert, in no acute distress, well- hydrated, well nourished., Obese EXTREMITIES : Right shoulder. Painful lateral raising to 180?, especially with lowering of the right shoulder. No localized tenderness of the muscles or bones around the right shoulder. Normal muscle tone and without atrophy. Full painless range of motion of the head and neck without shoulder pain. No neck muscle spasm. Grade 5/5 strength without pain with right speeds, empty can, resisted internal rotation, biceps, triceps. Grade 5/5 strength with pain with resisted external rotation. Normal exam of the right shoulder. Dorsal pedal pulses are absent bilaterally and he has absence of hair in a stocking distribution consistent with peripheral arteriosclerosis. Some mild diminished monofilament sensation bottoms of both feet. Lab 04/01/17: HbA1c 7.9 glu 127 creat 1.24 GFR 62 Na 138 K 3.6 Ca 9.3 Mg 2.1 Chol 150 TG 266 HDL 38 LDL 59 LFTs normal T4 1.0 alb/creat 60.0 ASSESSMENT: diabetes mellitus II with peripheral arteriosclerosis and peripheral neuropathy --some worsening neuropathy Improved diabetic control since starting trulicity--near goal. Painful claudication requiring long-term prescribed opiate hypertension--at goal hyperlipidemia--at goal obesity PLAN: healthy weight losing diet and regular exercise eat less sugar, bread, potato, pasta, rice, corn, corn syrup, saturated fats eat slower and smaller portions same medications recheck HbA1c 3 mos. avoid raising right arm above shoulder height MIROSLAVA Sainz MD, III MD [facility] website checked and validated. All prescriptions have been APPROPRIATELY filled. No suspicious activity was identified.- 04/04/2017 by MIROSLAVA Sainz MD, III MD 04/04/2017 2:37 PM Signed PLAN: healthy weight losing diet and regular exercise eat less sugar, bread, potato, pasta, rice, corn, corn syrup, saturated fats eat slower and smaller portions same medications recheck HbA1c 3 mos. avoid raising right arm above shoulder height Mian Wilburn III MD Referring Provider: MIAN WILBURN III [[id number]] Allergies As of Date: 04/04/2017 Noted Allergy Reaction ADHESIVE 05/12/2008 2 - Rash Comments: Redness to skin LISINOPRIL 11/17/2010 3 - Cough PENICILLINS 06/22/2005 16 - Unknown Comments: childhood Date Reviewed: 04/04/2017 Reviewed by: Haily Pelayo Surg Tech - Fully Assessed Reason for Visit: 6 Month Exam [189] Primary Visit Diagnosis:Unstable angina (HCC) [I20.0] Other Visit Diagnoses:Essential hypertension [I10] Peripheral vascular disease, unspecified (HCC) [I73.9] Diabetes mellitus type 2 with peripheral artery disease (HCC) [E11.51] Stable angina (HCC) [I20.8] equipment [employer] current use of opiate analgesic [Z79.891] senior care prescription benzodiazepine use [Z79.899] equipment [employer] prescription opiate use [Z79.891] Raynaud's disease without gangrene [I73.00] Order(s):HYDROcodone-acetaminophen (NORCO) 5-325 mg per tabletTake 1 tablet by mouth twice daily as needed for Pain for up to 30 days.Disp: 60 tabletRfl: 0 [START ON 05/05/2017] HYDROcodone-acetaminophen (NORCO) 5-325 mg per tabletTake 1 tablet by mouth twice daily as needed for Pain for up to 30 days. Earliest Fill Date: 05/05/17Disp: 60 tabletRfl: 0 [START ON 06/02/2017] HYDROcodone-acetaminophen (NORCO) 5-325 mg per tabletTake 1 tablet by mouth twice daily as needed for Pain for up to 30 days. Earliest Fill Date: 06/02/17Disp: 60 tabletRfl: 0 Prescriptions as of 04/04/2017 Sig: HYDROCODONE 5 MG-ACETAMINOPHE* Take 1 tablet by mouth twice * HYDROCODONE 5 MG-ACETAMINOPHE* Take 1 tablet by mouth twice * HYDROCODONE 5 MG-ACETAMINOPHE* Take 1 tablet by mouth twice * LANTUS 100 UNIT/ML SUBCUTANEO* INJECT 10 UNITS UNDER THE SKI* AMLODIPINE 10 MG TABLET Take 1 tablet by mouth once d* GEMFIBROZIL 600 MG TABLET Take 0.5 tablets by mouth twi* HYDROCHLOROTHIAZIDE 12.5 MG C* TAKE 1 CAPSULE BY MOUTH ONCE * LORAZEPAM 0.5 MG TABLET Take 1 tablet by mouth twice * CLOPIDOGREL 75 MG TABLET Take 1 tablet by mouth once d* DULAGLUTIDE 1.5 MG/0.5 ML SUB* Inject 1.5 mg subcutaneously * LOSARTAN 25 MG TABLET Take 1 tablet by mouth once d* ISOSORBIDE MONONITRATE ER 60 * Take 1 tablet by mouth once d* CARVEDILOL 25 MG TABLET Take 1 tablet by mouth twice * MAGNESIUM OXIDE 500 MG CAPSULE Take 500 mg by mouth once malgorzata* INSULIN GLARGINE 100 UNIT/ML * Inject 30 Units subcutaneousl* ATORVASTATIN 80 MG TABLET Take 1 tablet by mouth once d* INSULIN SYRINGE-NEEDLE U-100 * 10 Units once daily. NITROGLYCERIN 0.4 MG SUBLINGU* Dissolve 1 tablet under the t* BLOOD SUGAR DIAGNOSTIC STRIPS TEST BLOOD SUGAR ONCE DAILY. * CHOLECALCIFEROL (VITAMIN D3) * Take 1 capsule by mouth once * Patient taking differently: Take 5,000 Units by mouth onc* ECOTRIN LOW STRENGTH 81 MG TA* Take one(1) tablet daily. Problem List As Of Date 04/04/2017 Noted Resolved Raynaud's syndrome [I73.00] HTN (hypertension) [I10] Priority: C More... Hyperlipidemia [E78.5] More... PERIPH VASCULAR DIS NOS [I73.9] INVALID FOR* LUMBAGO [M54.5] INVALID FOR* ASCVD [I25.10] INVALID FOR* Anxiety state [F41.1] INVALID FOR* Skin lesion [L98.9] INVALID FOR* Peripheral arterial disease [I73.9] INVALID FOR* More... Parotid discomfort [K11.9] INVALID FOR* Diabetes mellitus (HCC) [E11.9] INVALID FOR*08/28/2013 Anxiety [F41.9] INVALID FOR* GERD (gastroesophageal reflux disease) [K21.9] INVALID FOR* Low testosterone [E34.9] INVALID FOR* Diabetes mellitus type 2 with peripheral artery*INVALID FOR* More... SUMMARY INVALID FOR*02/14/2015 Priority: Mild More... 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 CAD (coronary artery disease) [I25.10] INVALID FOR* Priority: B More... Unstable angina (HCC) [I20.0] INVALID FOR* Priority: A More... Presence of stent in left circumflex coronary a*INVALID FOR* Presence of drug coated stent in posterior desc*INVALID FOR* PAD (peripheral artery disease) (HCC) [I73.9] INVALID FOR* Shift work sleep disorder [G47.26] INVALID FOR* Stable angina (HCC) [I20.8] INVALID FOR* Bowel habit changes [R19.4] INVALID FOR* Type 2 diabetes mellitus with stage 3 chronic k*INVALID FOR* senior care current use of opiate analgesic [Z79.*INVALID FOR* Insulin resistance [E88.81] INVALID FOR* senior care prescription benzodiazepine use [Z79.*INVALID FOR* Other instructions from your clinician: PLAN: healthy weight losing diet and regular exercise eat less sugar, bread, potato, pasta, rice, corn, corn syrup, saturated fats eat slower and smaller portions same medications recheck HbA1c 3 mos. avoid raising right arm above shoulder height Mian Wilburn III MD Prescriptions ordered this encounter Disp Refills Start End HYDROCODONE 5 MG-ACETAMINOPHEN 325 M* 60 t* 0 04/04/2017 05/04/2017 Class: Print RX Route: ORAL Sig: Take 1 tablet by mouth twice daily as needed for Pain for up to 30 days. HYDROCODONE 5 MG-ACETAMINOPHEN 325 M* 60 t* 0 05/05/2017 06/04/2017 Class: Print RX Route: ORAL Sig: Take 1 tablet by mouth twice daily as needed for Pain for up to 30 days. Earliest Fill Date: 05/05/17 HYDROCODONE 5 MG-ACETAMINOPHEN 325 M* 60 t* 0 06/02/2017 07/02/2017 Class: Print RX Route: ORAL Sig: Take 1 tablet by mouth twice daily as needed for Pain for up to 30 days. Earliest Fill Date: 06/02/17 Medications Discontinued During This Encounter HYDROcodone-acetaminophen (NORCO) 5-* 90 t* 0 02/02/2017 04/04/2017 Class: Print RX Route: ORAL Sig: Take 1 tablet by mouth every 8 hours as needed for Pain. Disc: Reason for discontinue is not on file. Encounter Status:Closed by MIAN WILBURN III, MD on 04/04/17 [id number] Observed: 03/20/2017 Status: COMPLETED Source: [place] 12:00 AM [facility] REPOSITORY Patient Outreach (FAMPST) NOMAN STONE ([id number]) 1955 M Date Time Provider Department 03/20/17 MIAN WILBURN III During your visit today, we recorded the following information about you: Allergies As of Date: 03/20/2017 Noted Allergy Reaction ADHESIVE 05/12/2008 2 - Rash Comments: Redness to skin LISINOPRIL 11/17/2010 3 - Cough PENICILLINS 06/22/2005 16 - Unknown Comments: childhood Date Reviewed: 01/08/2017 Reviewed by: Mima Urena - Fully Assessed Visit Diagnosis:Medication management [Z79.899] Order(s):ALBUMIN/CREAT RATIO RND UR [SQUACR] Order #: [id number] FUTURE BASIC METABOLIC PNL [SQBMP] Order #: [id number] FUTURE CBC [SQCBC] Order #: [id number] FUTURE HGB A1C [LUEPO0K] Order #: [id number] FUTURE Prescriptions as of 03/20/2017 Sig: X LANTUS 100 UNIT/ML SUBCUTANEO* INJECT 10 UNITS UNDER THE SKI* AMLODIPINE 10 MG TABLET Take 1 tablet by mouth once d* GEMFIBROZIL 600 MG TABLET Take 0.5 tablets by mouth twi* HYDROCHLOROTHIAZIDE 12.5 MG C* TAKE 1 CAPSULE BY MOUTH ONCE * X LORAZEPAM 0.5 MG TABLET Take 1 tablet by mouth twice * CLOPIDOGREL 75 MG TABLET Take 1 tablet by mouth once d* DULAGLUTIDE 1.5 MG/0.5 ML SUB* Inject 1.5 mg subcutaneously * X HYDROCODONE 5 MG-ACETAMINOPHE* Take 1 tablet by mouth every * LOSARTAN 25 MG TABLET Take 1 tablet by mouth once d* ISOSORBIDE MONONITRATE ER 60 * Take 1 tablet by mouth once d* CARVEDILOL 25 MG TABLET Take 1 tablet by mouth twice * MAGNESIUM OXIDE 500 MG CAPSULE Take 500 mg by mouth once malgorzata* INSULIN GLARGINE 100 UNIT/ML * Inject 30 Units subcutaneousl* X ATORVASTATIN 80 MG TABLET Take 1 tablet by mouth once d* INSULIN SYRINGE-NEEDLE U-100 * 10 Units once daily. NITROGLYCERIN 0.4 MG SUBLINGU* Dissolve 1 tablet under the t* BLOOD SUGAR DIAGNOSTIC STRIPS TEST BLOOD SUGAR ONCE DAILY. * CHOLECALCIFEROL (VITAMIN D3) * Take 1 capsule by mouth once * Patient taking differently: Take 5,000 Units by mouth onc* ECOTRIN LOW STRENGTH 81 MG TA* Take one(1) tablet daily. Problem List As Of Date 03/20/2017 Noted Resolved Raynaud's syndrome [I73.00] HTN (hypertension) [I10] Priority: C More... Hyperlipidemia [E78.5] More... PERIPH VASCULAR DIS NOS [I73.9] INVALID FOR* LUMBAGO [M54.5] INVALID FOR* ASCVD [I25.10] INVALID FOR* Anxiety state [F41.1] INVALID FOR* Skin lesion [L98.9] INVALID FOR* Peripheral arterial disease [I73.9] INVALID FOR* More... Parotid discomfort [K11.9] INVALID FOR* Diabetes mellitus (HCC) [E11.9] INVALID FOR*08/28/2013 Anxiety [F41.9] INVALID FOR* GERD (gastroesophageal reflux disease) [K21.9] INVALID FOR* Low testosterone [E34.9] INVALID FOR* Diabetes mellitus type 2 with peripheral artery*INVALID FOR* More... SUMMARY INVALID FOR*02/14/2015 Priority: Mild More... 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 CAD (coronary artery disease) [I25.10] INVALID FOR* Priority: B More... Unstable angina (HCC) [I20.0] INVALID FOR* Priority: A More... 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) Repository 02/24/2018 Drug lisinopril/[id number] Unknown Unknown Elle Allergy/416 658(RXNORM) [facility] 189929([facility] ED CT) Repository 02/24/2018 Drug adhesive/[id number] Unknown Unknown [place] Allergy/416 5(RXNORM) [facility] 298976([facility] ED CT) Repository 11/17/2010 DRUG LISINOPRIL COUGH [facility] INGREDI/[address] 326870(SNOM Repository ED CT) 05/12/2008 DRUG ADHESIVE RASH [facility] INGREDI/[address] [place] 193380(SNOM Repository ED CT) 06/22/2005 Drug PENICILLINS UNKNOWN [facility] Class/[address] [place] 1003(SNOMED Repository CT) NG/[id number] ADHESIVE [facility] 6(CDPOMED [facility] CT) Repository NG/[id number] LISINOPRIL [facility] 6(CDPOMED Affib[facility] System CT) Repository NG/24359405 PENICILLINS [facility] 6(One [facility] System CT) Repository ENCOUNTERS ENCOUNTERS ADMIT/DISCHARGE ACCOUNT NUMBER ADMITTING ENCOUNTER LOCATION SOURCE CLASS 03/05/2018/03/06/20 [id number] Ambulatory [address] Repository 02/28/[id number] [facility] ding:SL Repository 02/25/[id number] [facility] ding:CR Repository 02/25/2018/02/28/20 [id number] [place], Inpatient [address] ding:PCURoom Repository : [id number]: 1 02/25/2018 [id number] [place], Ambulatory BMSBuilding: Elle [place] BMS.[facility] Repository 02/25/2018 [id number] [place], Ambulatory BMSBuilding: Elle [place] BMS.[facility] Repository 02/25/2018 [id number] [place], Ambulatory BMSBuilding: Elle [place] BMS.[facility] Repository 02/25/2018 [id number] [place]yepong, Ambulatory BMSBuilding: [place] Boni BMS.[facility] Repository 02/25/2018 [id number] Agyepong, Ambulatory BMSBuilding: Elle [place] BMS.CF.[facility] Repository 02/25/2018 [id number] Agyepong, Ambulatory BMSBuilding: Elle [place] BMS.[facility] Repository 02/22/2018/02/23/20 [id number] Ambulatory [place] ding:CR Repository 02/21/2018/02/22/20 [id number] Ambulatory BMSBuilding: Elle 18 BMS.[facility] Repository 02/19/2018/02/21/20 [id number] Ambulatory [address] Repository 02/01/2018/02/02/20 [id number] Ambulatory BMSBuilding: [place] 18 BMS.[facility] Repository 01/23/2018/01/24/20 [id number] Ambulatory [address] ding:CR Repository 01/22/2018/01/24/20 [id number] Ambulatory [address] Repository 01/08/2018/01/10/20 [id number] Ambulatory [address] Repository 12/25/2017/12/27/19 [id number] Ambulatory [address] Repository 12/21/2017/12/22/19 [id number] Ambulatory [address] ding:PT Repository 12/21/2017/12/24/19 [id number] Ambulatory [address] ding:CR Repository 11/27/2017/11/29/19 [id number] Ambulatory [address] Repository 11/22/[id number] [facility] ding:CR Repository 11/13/2017/11/15/19 [id number] Ambulatory [address] Repository 11/01/[id number] [facility] ding:[facility] Repository 11/01/2017 [id number] Ambulatory BMSBuilding: Elle [facility] Repository 10/31/2017/11/01/19 [id number] Ambulatory BMSBuilding: Elle 18 BMS.[facility] Repository 10/30/2017/11/02/19 [id number] Ambulatory [address] Repository 10/29/2017 [id number] Ambulatory BMSBuilding: Elle BMS.[facility] Repository 10/29/2017 [id number] Ambulatory BMSBuilding: Elle BMS.[facility] Repository 10/25/[id number] [facility] ding:[facility] Repository 10/25/2017/10/26/19 [id number] Ambulatory BMSBuilding: Elle 18 BMS.[facility] Repository 10/24/2017/10/26/19 [id number] Ambulatory [place] [address] [place] Repository 10/17/2017/10/18/19 [id number] Ambulatory [address] [place] Repository 10/10/2017/10/12/19 [id number] Ambulatory [address] [place] Repository 10/08/2017/10/10/19 [id number] Ambulatory [address] [place] Repository 10/04/2017/10/06/19 [id number] Ambulatory [address] [place] Repository 10/04/2017/10/05/19 [id number] Ambulatory [address] [place] Repository 10/04/2017/10/05/19 [id number] Ambulatory [place] [facility] [address] [place] Repository 10/04/2017/10/05/19 [id number] Ambulatory [address] [place] Repository 10/03/2017/10/05/19 [id number] Ambulatory [address] [place] Repository 10/01/[id number] [facility] ding:[facility] Repository 09/30/2017/10/02/19 [id number] Emergency [place] ding:ED Repository 09/27/2017/09/28/19 [id number] Ambulatory [place] [facility] [address] [place] Repository 09/13/2017/09/14/19 [id number] Ambulatory [place] [facility] [address] [place] Repository 09/13/2017/09/14/19 [id number] Ambulatory [place] [facility] [address] [place] Repository 09/13/2017/09/18/19 [id number] Ambulatory [place] [facility] [address] [place] Repository 09/13/2017/09/18/19 [id number] Ambulatory [place] [facility] [address] [place] Repository 09/13/2017/09/28/19 [id number] AMANDO LE Inpatient [address] Repository 09/09/2017 [id number] [place] Ambulatory BMSBuilding: Elle BMS.[facility] Repository 09/09/2017/09/13/19 [id number] [place] Inpatient [place] Elle 18 Encounter [facility] ding:PCURoom Repository : [id number]: 1 09/09/2017 [id number] [place] Ambulatory BMSBuilding: [place] BMS..[facility] Repository 09/09/2017 [id number] [place] Ambulatory BMSBuilding: Elle BMS.[facility] Repository 09/09/2017 [id number] [place] Ambulatory BMSBuilding: [place] BMS.[facility] Repository 09/09/2017 [id number] [place] Ambulatory BMSBuilding: Elle BMS.[facility] Repository 09/09/2017 [id number] [place] Ambulatory BMSBuilding: Elle BMS.[facility] Repository 09/09/2017 [id number] [place] Ambulatory BMSBuilding: Elle BMS.[facility] Repository 09/09/2017 [id number] [place] Ambulatory BMSBuilding: [place] BMS.[facility] Repository 09/07/2017 [id number] Ambulatory [facility] MEDICAL Repository CENTERBuildi ng:CAGWS 04/04/2017/04/04/19 [id number] Ambulatory [address] Repository PAYERS PAYERS ENCOUNTER GUARANTOR PAYER SUBSCRIBER SOURCE 02/28/2018 NOMAN Christianson Primary NOMAN Almeida [id number] Insurance:MEDICAL ROTHEMUNDDOB: [facility] [id number] Number: Repository [id number]: [phone] [id number] [phone] () Date:1786-08-68HQ [address] [address]HI: 02/28/2018 Secondary NOT GIVENUNK [place] Insurance:SELF PAY [facility] Number: Effective Repository Date:2018-02-21 02/25/2018 NOMAN J Primary NOMAN J [place] [id number] Insurance:MEDICAL ROTHEMUNDDOB: [facility] [id number] Number: Repository [id number]: [phone] [id number] [phone] (HP) Date:7283-45-73OJ [address] [place] [address]AR: 02/25/2018 Secondary NOT GIVENUNK Elle Insurance:SELF PAY [facility] Number: Effective Repository Date:2018-02-23 02/25/2018 NOMAN J Primary NOMAN J Elle [id number] Insurance:MEDICAL ROTHEMUNDDOB: [facility] 1989[place] Number: Repository [address]Eox: 330 [id number] [phone] (HP) Date:2354-15-12QT [address] [place] [address]QC: 02/25/2018 Secondary NOT GIVENUNK Mott Insurance:SELF PAY [facility] Number: Effective Repository Date:2018-02-24 02/25/2018 NOMAN J Primary NOMAN J Mott [id number] Insurance:MEDICAL ROTHEMUNDDOB: [facility] 7565-82-51ZCLKansas[place] Number: Repository [address]Dpf: 330 [id number] [phone] (HP) Date:6259-19-26HY [address] [place] [address]DP: 02/25/2018 Secondary NOT GIVENUNK Elle Insurance:SELF PAY [facility] Number: Effective Repository Date:2018-02-25 02/25/2018 NOMAN J Primary NOMAN J Elle [id number] Insurance:MEDICAL ROTHEMUNDDOB: [place] [address] [place] [address] Number: Repository [id number]: 330 [id number] [phone] (HP) Date:1118-12-04NM [address] [address]WK: 02/25/2018 Secondary NOT GIVENUNK Elle Insurance:SELF PAY [facility] Number: Effective Repository Date:2018-02-25 02/25/2018 NOMAN J Primary NOMAN J Elle [id number] Insurance:MEDICAL ROTHEMUNDDOB: [facility] 2545[place]83[place]CVV[place] Number: [place] [address]Wul: 330 [id number] [phone] (HP) Date:1390-76-26XZ [address] [address]ZW: 02/25/2018 Secondary NOT GIVENUNK Elle Insurance:SELF PAY [facility] Number: Effective Repository Date:2018-02-25 02/25/2018 NOMAN J Primary NOMAN J Mott [id number] Insurance:MEDICAL ROTHEMUNDDOB: [facility] 2986[place]99[place]34[place]AK[place] Number: Repository [address]Ttd: 330 [id number] [phone] (HP) Date:7996-46-37MO [address] [address]ZX: 02/25/2018 Secondary NOT GIVENUNK Elle Insurance:SELF PAY [facility] Number: Effective Repository Date:2018-02-25 02/25/2018 NOMAN J Primary NOMAN J Elle [id number] Insurance:MEDICAL ROTHEMUNDDOB: [facility] [id number] Number[place] Rep[place] [address]Ueh: 330 [id number] [phone] (HP) Date:8101-60-64NR [address] [address]YU: 02/25/2018 Secondary NOT GIVENUNK Elle Insurance:SELF PAY [facility] Number: Effective Repository Date:2018-02-25 02/25/2018 NOMAN J Primary NOMAN J Elle [id number] Insurance:MEDICAL ROTHEMUNDDOB: [facility] 7897-38-75LYOKansas[place] Number: Repository [address]Tpf: 330 [id number] [phone] (HP) Date:5463-61-94PS [address] [place] [address]UU: 02/25/2018 Secondary NOT GIVENUNK Mott Insurance:SELF PAY [facility] Number: Effective Repository Date:2018-02-25 02/22/2018 NOMAN J Primary NOMAN J Elle [id number] Insurance:MEDICAL ROTHEMUNDDOB: [facility] [id number] [place] [address] Number: Repository [id number]: 330 [id number] [phone] (HP) Date:9017-21-28QO [address] [place] [address]HQ: 02/22/2018 Secondary NOT GIVENUNK Mott Insurance:SELF PAY [facility] Number: Effective Repository Date:2018-01-24 02/21/2018 NOMAN J Primary NOMAN J Mott [id number] Insurance:MEDICAL ROTHEMUNDDOB: [facility] 4026-33-03LSZ[place] Number[place] [address]Nny: 330 [id number] [phone] (HP) Date:1100-77-32GG [address] [place] [address]JC: 02/21/2018 Secondary NOT GIVENUNK Mott Insurance:SELF PAY [facility] Number: Effective Repository Date:2018-02-18 02/01/2018 NOMAN J Primary NOMAN J Elle [id number] Insurance:MEDICAL ROTHEMUNDDOB: [place] [address] Number: Repository [address]Xrd: 330 [id number] [phone] (HP) Date:4651-40-41UI [address] [place] [address]OV: 02/01/2018 Secondary NOT GIVENUNK Elle Insurance:SELF PAY [facility] Number: Effective Repository Date:2018-02-01 01/23/2018 NOMAN J Primary NOMAN J Mott [id number] Insurance:MEDICAL ROTHEMUNDDOB: [facility] [id number] Number: Repository [address]Irx: 330 [id number] [phone] (HP) Date:9812-53-32AS [address] [place] [address]UT: 01/23/2018 Secondary NOT GIVENUNK Mott Insurance:SELF PAY [facility] Number: Effective Repository Date:2017-12-24 12/21/2017 NOMAN J Primary NOMAN J Elle [id number] Insurance:MEDICAL ROTHEMUNDDOB: [facility] [id number] Number: Repository [address]Jpk: 330 [id number] [phone] (HP) Date:3772-12-64QH [address] [address]BQ: 12/21/2017 Secondary NOT GIVENUNK Elle Insurance:SELF PAY [facility] Number: Effective Repository Date:2017-10-31 12/21/2017 NOMAN J Primary NOMAN J Mott [id number] Insurance:MEDICAL ROTHEMUNDDOB: [facility] 7619-32-96YFNKansasville, [place] Number: Repository [address]Fqh: 330 [id number] [phone] (HP) Date:1992-83-14NM [address] [address]UX: 12/21/2017 Secondary NOT GIVENUNK Elle Insurance:SELF PAY [facility] Number: Effective Repository Date:2017-11-22 11/22/2017 NOMAN J Primary NOMAN J Elle [id number] Insurance:MEDICAL ROTHEMUNDDOB: [place]-07-[place] Number: Repository [address]Bjo: 330 [id number] [phone] (HP) Date:6704-81-51WR[address] [address]YJ: 11/22/2017 Secondary NOT GIVENUNK Elle Insurance:SELF PAY [facility] Number: Effective Repository Date:2017-11-02 11/01/2017 NOMAN J Primary NOMAN J Mott [id number] Insurance:MEDICAL ROTHEMUNDDOB: [place] [address] Number: Repository [address]Yfn: 330 [id number] [phone] (HP) Date:8279-07-41ZY[address] [address]YE: 11/01/2017 Secondary NOT GIVENUNK Mott Insurance:SELF PAY [facility] Number: Effective Repository Date:2017-10-31 11/01/2017 NOMAN J Primary NOMAN J Elle [id number] Insurance:MEDICAL ROTHEMUNDDOB: [place]-07-[place] Number: Repository [address]Tga: 330 [id number] [phone] (HP) Date:3569-13-71IN[address] [address]BV: 11/01/2017 Secondary NOT GIVENUNK Mott Insurance:SELF PAY [facility] Number: Effective Repository Date:2017-11-01 10/31/2017 NOMAN J Primary NOMAN J Elle [id number] Insurance:MEDICAL ROTHEMUNDDOB: [place] [address] Number: Repository [address]Atl: (413) [id number] [phone] (HP) Date:8809-07-92RB [address] [place] [address]RV: 10/31/2017 Secondary NOT GIVENUNK Elle Insurance:SELF PAY [facility] Number: Effective Repository Date:2017-10-31 10/29/2017 NOMAN J Primary NOMAN J Mott [id number] Insurance:MEDICAL ROTHEMUNDDOB: [facility] [id number] Number: Repository [address]Slb: 330 [id number] [phone] (HP) Date:0070-49-74QC [address] [place] [address]IR: 10/29/2017 Secondary NOT GIVENUNK Mott Insurance:SELF PAY [facility] Number: Effective Repository Date:2017-10-29 10/29/2017 NOMAN J Primary NOMAN J Elle [id number] Insurance:MEDICAL ROTHEMUNDDOB: [facility] [id number][place] Number: Repository [address]Tog: 330 [id number] [phone] (HP) Date:8649-19-46XT [address] [address]NF: 10/29/2017 Secondary NOT GIVENUNK Mott Insurance:SELF PAY [facility] Number: Effective Repository Date:2017-10-29 10/25/2017 NOMAN J Primary NOMAN J Elle [id number] Insurance:MEDICAL ROTHEMUNDDOB: [facility] 1358-79-45HSQK[place] Number: Repository [address]Nlw: 330 [id number] [phone] (HP) Date:1223-01-04FO [address] [address]DH: 10/25/2017 Secondary NOT GIVENUNK Mott Insurance:SELF PAY [facility] Number: Effective Repository Date:2017-10-25 10/25/2017 NOMAN J Primary NOMAN J Mott [id number] Insurance:MEDICAL ROTHEMUNDDOB: [facility] 2588-11-98FYHT[place] Number: [place]ository [address]Nbi: 330 [id number] [phone] (HP) Date:9325-04-42XW [address] [address]GU: 10/25/2017 Secondary NOT GIVENUNK Mott Insurance:SELF PAY [facility] Number: Effective Repository Date:2017-10-25 10/01/2017 NOMAN J Primary NOMAN J Elle [id number] Insurance:MEDICAL ROTHEMUNDDOB: [facility] 2577-76-90MQGKansas[place] Number: Repository [address]Cur: 330 [id number] [phone] (HP) Date:4170-95-76ZG [address] [address]NH: 10/01/2017 Secondary NOT GIVENUNK Mott Insurance:SELF PAY [facility] Number: Effective Repository Date:2017-10-01 09/30/2017 NOMAN J Primary NOMAN J Elle [id number] Insurance:MEDICAL ROTHEMUNDDOB: [facility] 0016-46-24SVPKansasville, [place] Number: Repository [address]Clf: 330 [id number] [phone] (HP) Date:1964-12-14VB [address] [address]GC: 09/30/2017 Secondary NOT GIVENUNK Mott Insurance:SELF PAY [facility] Number: Effective Repository Date:2017-09-30 09/09/2017 Noman J Primary Noman J Elle [id number] Insurance:MEDICAL RothemundDOB: [facility] [place]67[place] Number: Repository [address]Far: 330 [id number] [phone] (HP) Date:9671-50-38XR [address] [address]HF: 09/09/2017 Secondary NOT GIVENUNK Mott Insurance:SELF PAY [facility] Number: Effective Repository Date:2017-09-09 09/09/2017 Noman J Primary Noman J Elle [id number] Insurance:MEDICAL RothemundDOB: [facility] 7715[place]24-[place]VCZ[place] Number: Repository [address]Qts: 330 [id number] [phone] (HP) Date:5956-33-76AR [address] [address]KI: 09/09/2017 Secondary NOT GIVENUNK Elle Insurance:SELF PAY [facility] Number: Effective Repository Date:2017-09-09 09/09/2017 Noman J Primary Noman J Mott [id number] Insurance:MEDICAL RothemundDOB: [facility] [id number] Number: Repository [address]Zga: 330 [id number] [phone] (HP) Date:2080-27-49EK [address] [address]WK: 09/09/2017 Secondary NOT GIVENUNK Mott Insurance:SELF PAY [facility] Number: Effective Repository Date:2017-09-09 09/09/2017 Noman J Primary Noman J Mott [id number] Insurance:MEDICAL RothemundDOB: [facility] 0238-46-45[place] Number: Repository [address]Tkv: 330 [id number] [phone] (HP) Date:3648-94-22GQ [address] [address]UN: 09/09/2017 Secondary NOT GIVENUNK Mott Insurance:SELF PAY [facility] Number: Effective Repository Date:2017-09-09 09/09/2017 Noman J Primary Noman J Elle [id number] Insurance:MEDICAL RothemundDOB: [facility] 1835-50-32SYF[place] Number: Repository [address]Qdd: 330 [id number] [phone] (HP) Date:2833-54-91QX [address] [address]CA: 09/09/2017 Secondary NOT GIVENUNK Elle Insurance:SELF PAY [facility] Number: Effective Repository Date:2017-09-09 09/09/2017 Noman J Primary Noman J Mott [id number] Insurance:MEDICAL RothemundDOB: [facility] 0223-35-99DEI[place] Number: Repository [address]Mql: 330 [id number] [phone] (HP) Date:4894-49-13LU [address] [address]NX: 09/09/2017 Secondary NOT GIVENUNK Elle Insurance:SELF PAY [facility] Number: Effective Repository Date:2017-09-09 09/09/2017 Noman J Primary Noman J Elle [id number] Insurance:MEDICAL RothemundDOB: [facility] 5267-26-83MBD[place] Number: Repository [address]Yda: 330 [id number] [phone] (HP) Date:4376-50-30CY [address] [address]VQ: 09/09/2017 Secondary NOT GIVENUNK Elle Insurance:SELF PAY [facility] Number: Effective Repository Date:2017-09-09 09/09/2017 Noman J Primary Noman J Mott [id number] Insurance:MEDICAL RothemundDOB: [facility] 9289-85-33EZRAr[place], [place] Number: Repository [address]Qix: 330 [id number] [phone] (HP) Date:8254-38-88QC [address] [place] [address]UT: 09/09/2017 Secondary NOT GIVENUNK Mott Insurance:SELF PAY [facility] Number: Effective Repository Date:2017-09-09 09/09/2017 Noman Christianson Primary Noman Fisheroster [id number] Insurance:[facility] RothemundDOB: [facility] 1139-18-00[place]AE[place] Number: Repository [address]Wsu: (598) [id number] [phone] (HP) Date:2535-80-46WT [address] [address]MA: 09/09/2017 Secondary NOT GIVENUNK Elle Insurance:SELF PAY [facility] Number: Effective Repository Date:2017-09-09 09/07/2017 NOMAN Christianson Primary Insurance:O NOMAN Christianson [facility] ROTHEMUNDDOB[facility] ROTHEMUNDDOB: [facility] Number: [id number] [id number] [place], [place] Date: [address]Zal: (HP)
== END 2018-02-27 12:18 | disposition home or self-care (01) | DRG 281 ==
LOC: ED 02-25 01:38 → PCU 02-25 01:52
PROVIDERS: Internal Medicine Cardiovascular Disease; Admitting Provider Hospitalist; Emergency Provider Emergency Medicine; Family Provider Family Medicine; PCP Family Medicine; Visit Provider Family Medicine
DX: I21.4 Non-ST elevation (NSTEMI) myocardial infarction (principal); I25.719 Atherosclerosis of autologous vein coronary artery bypass graft(s) with unspecified angina pectoris; Z95.1 Presence of aortocoronary bypass graft; E78.5 Hyperlipidemia, unspecified; I48.0 Paroxysmal atrial fibrillation; E66.9 Obesity, unspecified; N28.9 Disorder of kidney and ureter, unspecified; E11.9 Type 2 diabetes mellitus without complications; I10 Essential (primary) hypertension; I25.119 Atherosclerotic heart disease of native coronary artery with unspecified angina pectoris; I73.9 Peripheral vascular disease, unspecified; Z95.820 Peripheral vascular angioplasty status with implants and grafts; Z68.34 Body mass index [BMI] 34.0-34.9, adult; Z79.02 Long term (current) use of antithrombotics/antiplatelets; Z95.5 Presence of coronary angioplasty implant and graft; Z79.01 Long term (current) use of anticoagulants; Z79.4 Long term (current) use of insulin
CPT/HCPCS: 36415; 71045; 80048; 80053; 80061; 81001; 82962; 83735; 84484; 85025; 85027; 85610; 85730; 93005; 93306; 93459; 93567; 99152; 99153; 99284; J7030; Q9957; Q9967; A4216; C1769; C8929

== ENCOUNTER 2018-02-25 14:28 | Outpatient (RCR) | payer OTHER, SELFPAY ==
[2018-02-21 13:08] VITALS: BMI 34.3
[2018-02-23 00:28] VITALS: BP 102/60
[2018-02-25 02:20] VITALS: BMI 34.8
== END 2018-03-25 23:59 ==
LOC: CR 14:28
PROVIDERS: Family Provider Family Medicine; PCP Family Medicine; Referring Provider Internal Medicine Cardiovascular Disease; Visit Provider Internal Medicine Cardiovascular Disease
DX: I25.10 Atherosclerotic heart disease of native coronary artery without angina pectoris (principal); Z95.1 Presence of aortocoronary bypass graft
CPT/HCPCS: 93798

== ENCOUNTER → 2018-02-28 05:49 | Outpatient (CLI) | payer OTHER, SELFPAY ==
[2018-02-25 02:20] VITALS: BMI 34.8
[2018-02-28] MEDS: Zolpidem Tartrate 5 MG Tablet PO (06:30)
== END ==
PROVIDERS: Family Provider Family Medicine; PCP Family Medicine; Referring Provider Internal Medicine Critical Care Medicine; Visit Provider Internal Medicine Critical Care Medicine
DX: G47.33 Obstructive sleep apnea (adult) (pediatric) (principal)
CPT/HCPCS: 95811

== ENCOUNTER → 2018-03-22 13:05 | Outpatient (CLI) | payer OTHER, SELFPAY ==
[2018-03-13 10:21] VITALS: BMI 34.8
[2018-03-22 14:27] LABS: Cholesterol 132 mg/dL (200); Hemoglobin A1c 8.6 % (4.2-6.3); High Density Lipoprotein 33 mg/dL; Triglycerides 286 mg/dL; Very Low Density Lipoprotein 57 mg/dL (5-40)
[2018-03-22 14:32] LABS: Vitamin B12 190 pg/mL (211-911)
[2018-03-22 19:25] LABS: Microalbumin,Random Urine 49.1 mg/L (NO RANGE EST.)
== END ==
PROVIDERS: Family Provider Family Medicine; PCP Family Medicine; Referring Provider Nurse Practitioner Family; Visit Provider Nurse Practitioner Family
DX: E11.51 Type 2 diabetes mellitus with diabetic peripheral angiopathy without gangrene (principal); E78.2 Mixed hyperlipidemia
CPT/HCPCS: 36415; 80061; 82043; 82570; 82607; 83036

== ENCOUNTER → 2018-09-19 14:02 | Outpatient (CLI) | payer OTHER, SELFPAY ==
[2018-08-22 10:03] VITALS: BMI 35.6
[2018-09-19 18:00] LABS: Hemoglobin A1c 8.5 % (4.2-6.3)
[2018-09-20 10:15] LABS: AST(SGOT) 17 U/L (15-37); Alanine Aminotransfer ALT/SGPT 24 U/L (16-61); Albumin, Serum 3.9 g/dL (3.2-5.0); Alkaline Phosphatase 71 U/L (45-117); Anion Gap 5 (5-15); BUN 19 mg/dL (7-18); Calcium,Total 9.1 mg/dL (8.5-10.1); Chloride 107 mmol/L (98-107); Creatinine, Serum 1.36 mg/dL (0.70-1.30); EST Glomerular Filtration Rate 56 mL/min (>60); Est Glom Filt Rate - Afr Amer 68 mL/min (>60); Globulin 3.8 g/dL (2.2-4.2); Glucose 112 mg/dL (74-106); Protein, Total 7.7 g/dL (6.4-8.2); Sodium Level 140 mmol/L (136-145)
[2018-09-20 10:18] LABS: Hematocrit 43.7 % (40-54); Hemoglobin 14.4 g/dl (13.0-16.5); Mean Corpuscular Hgb 29.5 pg (27.0-32.0); Mean Corpuscular Volume 89.5 fL (80-94); Mean Platelet Vol. 10.2 fl (6.2-12.0); Platelet Count 203 K/mm3 (150-450); RBC Distribution Width CV 13.9 % (11.6-14.6); Red Blood Count 4.88 M/mm3 (4.6-6.2)
[2018-09-20 10:19] LABS: Scan Indicated on CBC? Y/N NO
== END ==
PROVIDERS: Family Provider Family Medicine; PCP Family Medicine; Referring Provider Family Medicine; Visit Provider Family Medicine
DX: E11.22 Type 2 diabetes mellitus with diabetic chronic kidney disease (principal); I12.9 Hypertensive chronic kidney disease with stage 1 through stage 4 chronic kidney disease, or unspecified chronic kidney disease; N18.3 Chronic kidney disease, stage 3 (moderate); E11.51 Type 2 diabetes mellitus with diabetic peripheral angiopathy without gangrene; E78.2 Mixed hyperlipidemia; Z79.4 Long term (current) use of insulin
CPT/HCPCS: 36415; 80053; 83036; 85027

== ENCOUNTER → 2019-03-24 13:58 | Outpatient (CLI) | payer OTHER, SELFPAY ==
[2019-02-24 13:05] VITALS: BMI 36.1
[2019-03-24 15:03] LABS: AST(SGOT) 18 U/L (15-37); Alanine Aminotransfer ALT/SGPT 28 U/L (16-61); Anion Gap 2 (5-15); BUN 16 mg/dL (7-18); BUN/Creat Ratio 11.4 RATIO (10-20); Calcium,Total 9.7 mg/dL (8.5-10.1); Chloride 102 mmol/L (98-107); Cholesterol 139 mg/dL (200); EST Glomerular Filtration Rate 54 mL/min (>60); Est Glom Filt Rate - Afr Amer 66 mL/min (>60); Glucose 181 mg/dL (74-106); High Density Lipoprotein 33 mg/dL; Potassium 4.5 mmol/L (3.5-5.1); Sodium Level 137 mmol/L (136-145); Triglycerides 190 mg/dL; Very Low Density Lipoprotein 38 mg/dL (5-40)
== END ==
PROVIDERS: Family Provider Family Medicine; PCP Family Medicine; Referring Provider Family Medicine; Visit Provider Family Medicine
DX: E11.22 Type 2 diabetes mellitus with diabetic chronic kidney disease (principal); N18.3 Chronic kidney disease, stage 3 (moderate); Z79.4 Long term (current) use of insulin; E78.5 Hyperlipidemia, unspecified; Z79.899 Other long term (current) drug therapy
CPT/HCPCS: 36415; 80048; 80061; 84450; 84460

== ENCOUNTER 2020-04-26 05:25 | Day surgery (SDC) | payer MEDICARE, BC, SELFPAY ==
[2020-04-21 14:02] VITALS: BMI 37.0
--- NOTE | 2020-04-26 | EGD_PTH ---
PATIENT: NOMAN STONE LOC: EN U#:[id number] AGE/SX: 64/M ROOM: RE04/26/[address]: Dr. Jakob Gomez MD : 1955 BED: DIS: 04/26/2020 SPEC #: [id number] RECD: 04/26/20 09:47 STATUS: JEANIE STANLEY #: [id number] SAM: 04/26/20 00:[address]: Jakob Gomez DEPT: SURGICAL PATHOLOGY RECD BY: Edwin Awad ENTERED: 04/26/20 11:02 SP TYPE: EGD [facility] DR: Dr. Andrew Gomez III, MD Tissues: A - Duodenum, NOS B - Gastric mucous membrane C - Esophageal mucous membrane D - Cecum, NOS E - Rectum, NOS Procedures: Surgery Specimen Level IV HEADER OPERATION: [place] [place] DIAGNOSIS: Epigastric pain, calculus of gallbladder with chronic cholecystitis, screening TISSUE SUBMITTED: A - Duodenum biopsy, B - Antrum biopsy for H. pylori and histology, C - Distal esophagus biopsy, D - Ileocecal valve lipoma for biopsy, E - Proximal rectum polyp biopsy MICROSCOPIC DIAGNOSIS A. Duodenum, biopsy: Minimal nonspecific chronic inflammation. B. Gastric antrum, biopsy: Chronic gastritis. See comment. C. Distal esophagus, biopsy: No pathologic change. D. Ileocecal valve, biopsy: Fragment of benign colonic mucosa. See comment. E. Proximal rectal polyp, biopsy: Hyperplastic polyp. AM:seamus 04/27/2020 COMMENT B. The results of immunohistochemistry for Helicobacter pylori will be reported separately ([id number]). D. Lipoma is not identified. MICROSCOPIC DESCRIPTION Slides are reviewed. GROSS DESCRIPTION A - Received in fixative is one container labeled with the patient's name and designated duodenum biopsy. The specimen consists of one irregular fragment of light alicea soft tissue that measures 0.5 x 0.2 x 0.1 cm. The specimen is totally submitted in one cassette. B - Received in fixative is one container labeled with the patient's name and designated antrum biopsy. The specimen consists of one irregular fragment of light alicea soft tissue that measures 0.6 x 0.2 x 0.1 cm. The specimen is totally submitted in one cassette. C - Received in fixative is one container labeled with the patient's name and designated distal esophagus biopsy. The specimen consists of one irregular fragment of light alicea soft tissue that measures 0.6 x 0.2 x 0.1 cm. The specimen is totally submitted in one cassette. D - Received in fixative is one container labeled with the patient's name and designated ileocecal valve biopsy. The specimen consists of one irregular fragment of light alicea soft tissue that measures 0.6 x 0.2 x 0.1 cm. The specimen is totally submitted in one cassette. E - Received in fixative is one container labeled with the patient's name and designated proximal rectal polyp biopsy. The specimen consists of one irregular fragment of light alicea soft tissue that measures 0.5 x 0.3 x 0.1 cm. The specimen is totally submitted in one cassette. / AM:seamus 04/26/20 TC:5 CPT: 07253 x5
--- NOTE | 2020-04-26 05:38 | PCM.HP.BLA ---
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: No Is patient in pain?: No Allergies adhesive Allergy (Verified 04/21/20 14:03) Unknown lisinopril Allergy (Verified 04/21/20 14:03) Unknown Penicillins Allergy (Verified 04/21/20 14:03) Unknown Medications Clopidogrel Bisulfate [Plavix] 75 mg PO DAILY 02/07/13 [History Confirmed 04/21/20] Atorvastatin Calcium [Lipitor] 80 mg PO QHS 07/05/15 [History Confirmed 04/21/20] Magnesium Oxide 500 mg PO DAILY 09/09/17 [History Confirmed 04/21/20] hydrocodone 5 mg-acetaminophen 325 mg tablet 1 tab PO Q12H PRN tab 10/31/17 [History Confirmed 04/21/20] lorazepam 0.5 mg tablet 0.5 mg PO BID PRN tab 10/31/17 [History Confirmed 04/21/20] carvedilol 25 mg tablet 12.5 mg PO BID tab 02/01/18 [History Confirmed 04/21/20] Aspirin E.C. [Ecotrin] 81 mg PO DAILY@0800 tab 02/27/18 [Rx Confirmed 04/21/20] Warfarin [Coumadin] 2.5 mg PO DAILY #30 tab 02/27/18 [Rx Confirmed 04/21/20] furosemide 20 mg tablet 40 mg PO DAILY tab 08/22/18 [History Confirmed 04/21/20] gemfibrozil 600 mg tablet 300 mg PO BID tab 08/22/18 [History Confirmed 04/21/20] nitroglycerin 0.4 mg sublingual tablet 0.4 mg SUBLINGUAL Q5M PRN #25 tab 02/24/19 [Rx Confirmed 04/21/20] mecobalamin (vitamin B12) 5,000 mcg disintegrating tablet 5,000 mcg PO QWEEK tab 10/27/19 [History Confirmed 04/21/20] cholecalciferol (vitamin D3) 25 mcg (1,000 unit) capsule 5,000 unit PO DAILY cap 04/07/20 [History Confirmed 04/21/20] cyclobenzaprine 10 mg tablet 10 mg PO DAILY PRN tab 04/07/20 [History Confirmed 04/21/20] docusate sodium 100 mg tablet 100 mg PO DAILY 04/07/20 [History Confirmed 04/21/20] insulin glargine 100 unit/mL subcutaneous solution 45 unit SC QHS ml 04/07/20 [History Confirmed 04/21/20] insulin lispro 100 unit/mL subcutaneous pen 20 unit SC TID ml 04/07/20 [History Confirmed 04/21/20] isosorbide mononitrate 120 mg tablet,extended release 24 hr 120 mg PO BID #180 tab 04/08/20 [Rx Confirmed 04/21/20] [facility] Medical History Essential hypertension (Chronic) Chest pain, unspecified (Acute) Renal insufficiency (Chronic) NSTEMI (non-ST elevated myocardial infarction) (Acute) Atherosclerotic heart disease of [place] coronary artery without angina pectoris (Chronic) Paroxysmal atrial fibrillation (Chronic) Bradycardia (Inactive) Type 2 diabetes mellitus (Chronic) PAD (peripheral artery disease) (Chronic) HLD (hyperlipidemia) (Chronic) Acute renal failure (Acute) GERD (gastroesophageal reflux disease) (Chronic) Raynauds disease (Chronic) CAD (coronary artery disease) (Inactive) Hypertension (Inactive) Surgical History Presence of stent in coronary artery (Chronic ~04/20/15) H/O coronary artery bypass surgery (Chronic 09/21/17) History of angioplasty of peripheral vessel (Chronic) Postsurgical percutaneous transluminal coronary angioplasty (PTCA) status (Chronic) History of inguinal hernia repair (Resolved) Family History Father Heart disease Grandmother Hypertension Grandfather Heart disease Myocardial infarction Social History (Updated 04/21/20 @ 15:[address] Jakob Gomez MD) Smoking Status: Never smoker alcohol intake: current HPI HPI HPI: NOMAN STONE, is a 64 M who presents to the office today for who is referred today because of episode approximately a week ago of severe aching pressure-like right upper quadrant pain. It abated after 6 hours. He denies fever or chills or jaundice. At the [facility] on April 19, 2020 he had a gallbladder ultrasound. The gallbladder was not distended. There was some layering of sludge and some subtle acoustic shadowing suggesting presence of tiny stones. No wall thickening or fluid. There is felt to be a small polyp noted in dependent body wall. There is heterogenous hepatic echogenicity consistent with fatty infiltration. The pancreas could not be visualized. 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 He notes that his stress level has significantly decreased. It is of note that when he became Medicare age he had to stop his Trulicity secondary to expense. His hemoglobin A1c then climbed to 9.9. Now with some dieting and exercise his hemoglobin A1c is 9.1. Most recent amylase level was 53. Lipase 80. That was drawn on April 16, 2020. Cholesterol is 115 with triglyceride 146. HDL is 25 and LDL 61. Albumin is 4.1. Total bilirubin and alkaline phosphatase and AST all normal. BUN was 22 and creatinine 1.42. White count was 8.31 with a hemoglobin of 14.1 and hematocrit of 43.3 platelet count 200,000. He has been on chronic acid suppression medication because of previous history of gastritis. He points to the epigastric right upper quadrant area as the source of his pain. He also has significant cardiac dysfunction. Approximately 2 years ago he had coronary bypass surgery x5. This was performed at [facility]. Apparently 4 of the 5 bypass grafts have failed. He does require chronic nitroglycerin therapy. He has been trying to improve his exercise and walks on a treadmill now 30 minutes a day. When he was working he frequently have to take supplemental sublingual nitroglycerin. He has not had a colonoscopy for at least 10 years. He has not noticed any bright red blood per rectum or melena. He does have a history of chronic constipation. He does require a daily [place] to try to help him with bilateral lower extremity pain. He has end-stage bilateral lower extremity arterial occlusive disease. I have previously assisted him with atherectomy of the right lower extremity and atherectomy with stenting of the left lower extremity. He now has had majority of his great saphenous veins harvested. He has leg pain that occurs at night. Has to get up and drop his legs down. This is been a stable situation for him. He has managed on warfarin and clopidogrel and aspirin therapy. His dental floss packer is Dr. Tex Coker and he has seen him quite recently. The patient is referred by his primary care physician Dr. Andrew Gomez III for surgical consultation regarding the epigastric pain and need for screening colonoscopy. Written copy my surgical consult recommendations will be returned to him. HPI HPI HPI: ONMAN STONE, is a 64 M who presents to the office today for ROS General General: Yes weight change; no appetite, fatigue, colon cancer, breast cancer or weakness HEENT HEENT: Yes eye surgery; no difficulty swallowing, eye injury, swollen glands or hoarseness Endo Endocrine: Yes diabetes mellitus; no thyroid disease, thyroid cancer, Hair loss, heat intolerance or cold intolerance Musc Musculoskeletal: Yes back problems; no arthritis, rheumatoid arthritis, gout or joint pain Cardio Cardiovascular: Yes heart disease, atrial fibrillation, heart attack and heart stent; no murmur, pacemaker, high blood pressure, palpitations, shortness of breat with exertion or chest pain Psych Psychiatric: Yes anxiety; no depression or hearing voices Resp Respiratory: No shortness of breath, Yes sleep apnea, No cough, No COPD, No asthma, No emphysema, No wheezing Gastro Gastrointestinal: Yes abdominal pain, No nausea or vomiting, No diarrhea, Yes constipation, No blood in stool, Yes acid reflux, Yes hemorrhoids, No ulcers, Yes gallbladder problem, No black,tarry stools Harris Hematologic: Yes blood thinners, No blood disorders, No bleeding, No anemia, No blood clots Neuro Neurologic: No weakness Exam Const General: cooperative, comfortable, no acute distress Nutritional Appearance: obese Orientation: alert, awake [facility] Head: normal to inspection Eyes General: appearance normal, both eyes and all related structures Chest Other: Well-healed median sternotomy incision Resp Effort & Inspection: normal respiratory effort Auscultation: clear to auscultation bilaterally Cardio Rate: regular rate Rhythm: regular rhythm Heart Sounds: no murmurs GI Palpation: soft, no hepatosplenomegaly Auscultation: normal bowel sounds Other: Nontender, I am not able to palpate the abdominal aorta. Musc Cervical Spine: normal cervical lordosis Skin Other: Vein harvest left lower extremity. Mild nonpitting edema bilateral lower extremities left worse than the right Neuro General: alert Extrem General: no calf tenderness Psych Affect: normal affect Assessment & Plan Problems 1. Epigastric pain R10.13 2. Calculus of gallbladder with chronic cholecystitis without obstruction K80.10 3. H/O coronary artery bypass surgery Z95.1 4. 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 Peripheral arterial disease I73.9 6. Screening for malignant neoplasm of intestine Z12.10 Plan Complex history of severe cardiac disease congenital arterial disease with failed coronary bypass grafting x5 with only one remaining patent graft. History of severe bilateral extremity arterial occlusive disease. Chronic utilization of nitroglycerin because of chest pain. New onset epigastric right upper quadrant pain possible gallstone related. Need for screening colonoscopy. Chronic anticoagulation on Coumadin and clopidogrel and aspirin. Increased risk for cardiac event. Increased risk for bleeding. Recent glucose [id number] with a hemoglobin A1c as high as 9.9 now controlled back to 9.1 I recommended the patient a combined esophagogastroduodenoscopy with possible biopsy and a screening colonoscopy with possible biopsy or polypectomy as indicated. He is aware of the technique, benefit, risk, alternatives. We will have him hold his clopidogrel and Coumadin 1 day prior to that endoscopic evaluation and we will use monitored anesthesia care. He will be scheduled 3 days hence for a laparoscopic cholecystectomy with selective cholangiography. He will remain off of his clopidogrel and Coumadin during that interval. We have discussed this plan with Dr. Tex Coker and it was suggested that he could be off of his dual anticoagulation for 5 days preintervention. The patient has had an opportunity to ask and have questions answered. He is clearly aware that he is at increased interventional risk. He is aware that we may need to convert to an open gallbladder procedure if increased bleeding is encountered. He has had an opportunity to ask and have questions answered. We will schedule and proceed at his discretion. Copy: Dr. Andrew Gomez, III and Dr. Tex Gomez M.D., F.A.C.S. Orders Orders: Colonoscopy Today EGD Today Coding Level of Care Code 70289 Diagnoses Epigastric pain R10.13 Calculus of gallbladder with chronic cholecystitis without obstruction K80.10 ??Cholelithiasis location: gallbladder ??Biliary obstruction: without biliary obstruction H/O coronary artery bypass surgery Z95.1 Type 2 diabetes mellitus with complication, unspecified whether half-way insulin use E11.8 ??Diabetes mellitus half-way insulin use: unspecified half-way insulin use status ??Diabetes mellitus complication status: with unspecified complications Peripheral arterial disease I73.9 Screening for malignant neoplasm of intestine Z12.10 I have re-examined the patient. There are no clinical changes since date of exam. Procedure Criteria Procedure Type: Elective COVID Risk Discussion: The surgeon/proceduralist and patient have discussed in detail the risk of exposure to and/or potential harm posed by the COVID-19 virus with having a surgery/procedure at this time versus the risk of delaying the surgery/procedure. It is not possible to know either the risk of delaying the surgery or procedure or chance of getting an infection with perfect accuracy, but a joint decision was made between the patient and the surgeon/proceduralist to proceed at this time with the scheduled surgery/procedure as indicated on the consent form.
[2020-04-26 05:55] VITALS: BP 132/80; PULSE 77; RESP 16; TEMP 36.2; O2SAT 96; BMI 36.3
[2020-04-26] MEDS: Lactated Ringers 1,000 ML 100 ML IV (06:11)
[2020-04-26 06:20] LABS: Prothrombin Time Fingerstick 26.5 SEC (11.9-14.4)
--- NOTE | 2020-04-26 06:30 | IMM_PTH ---
PATIENT: NOMAN STONE LOC: EN U#:[id number] AGE/SX: 64/M ROOM: RE04/26/[address]: Dr. Jakob Gomez MD : 1955 BED: DIS: 04/26/2020 SPEC #: [id number] RECD: 04/26/20 12:08 STATUS: JEANIE REJudson #: [id number] SAM: 04/26/20 06:[address]: Jakob Gomez DEPT: IMMUNOHISTOCHEMISTRY RECD BY: Zayra Bowman ENTERED: 04/26/20 12:08 SP TYPE: IMMUNO OTHR DR: Dr. Andrew Gomez III, MD Tissues: B - Stomach, NOS Procedures: H Pylori (initial) PHYSICIAN & INSTITUTION [place] [id number] SPECIMEN INFORMATION: Tissue Source: B - Antrum, biopsy Clinical Info: Epigastric pain; calculus of gallbladder with chronic cholecystitis; screening Specimen Number: [id number] CPT code: 32623 METHODOLOGY: Deparaffinized sections of prefer/formalin-fixed tissue or PAP/DQ stained slides are incubated with monoclonal/polyclonal antibodies/oligonucleotide probes. Localization is made via biotin free immunoperoxidase method. Appropriate controls are performed and reacted as expected. Results on target cell population are indicated in the following table: RESULTS: ANTIBODY / CLONE RESULT Block B H Pylori (polyclonal) negative These tests were developed and their performance characteristics determined by [facility]. They may not have been cleared or approved by the U.S. Food and Drug Administration. The FDA has determined that such clearance or approval is not necessary. INTERPRETATION: B. Antrum, biopsy: Negative for Helicobacter pylori organisms. AM:seamus 04/27/2020
[2020-04-26 07:05] VITALS: BP 103/56; BP 132/80; PULSE 75; RESP 16; TEMP 36.4; O2SAT 94
--- NOTE | 2020-04-26 07:08 | OP.CCLET_ITS ---
04/26/2020 Andrew Gomez [address] [place] [address] Re : Upper GI endoscopy procedure for Timothy Zita Dear Dr. Gomez This procedure was performed on Sunday, April 26, 2020. My impressions and recommendations are as follows: Impressions : - Z-line regular, 42 cm from the incisors. Biopsied. - Small hiatal hernia. - Acute chronic gastritis. Biopsied. - Erythematous duodenopathy. Biopsied. Recommendations : - Discharge patient to home. - Resume previous diet. - Continue present medications. - Use Pepcid (famotidine) 20 mg PO BID. My findings are described in the full procedure note, which is enclosed. If I can be of further assistance, please feel free to contact me at Doctor phone number(s): Work: . Sincerely, Jakob Gomez MD 04/26/2020 7:07:49 AM This report has been signed electronically.
--- NOTE | 2020-04-26 07:08 | OP.EGD_ITS ---
Patient Name: Timothy Ahumada Procedure Date: 04/26/2020 6:16 AM Date of : 1955 Age: 64 Procedure: Upper GI endoscopy Indications: Suspected gastro-esophageal reflux disease Providers: Jakob Gomez MD Referring MD: Andrew Gomez Iii Medicines: See the Anesthesia note for documentation of the administered medications Complications: No immediate complications. Procedure: Pre-Anesthesia Assessment: - Prior to the procedure, a History and Physical was performed, and patient medications and allergies were reviewed. The patient's tolerance of previous anesthesia was also reviewed. The risks and benefits of the procedure and the sedation options and risks were discussed with the patient. All questions were answered, and informed consent was obtained. Prior Anticoagulants: The patient has taken Coumadin (warfarin), last dose was 3 days prior to procedure. [ASA Grade]. After reviewing the risks and benefits, the patient was deemed in satisfactory condition to undergo the procedure. - Prior to the procedure, a History and Physical was performed, and patient medications and allergies were reviewed. The patient's tolerance of previous anesthesia was also reviewed. The risks and benefits of the procedure and the sedation options and risks were discussed with the patient. All questions were answered, and informed consent was obtained. Prior Anticoagulants: The patient has taken Plavix (clopidogrel), last dose was 2 days prior to procedure. ASA Grade Assessment: III - A patient with severe systemic disease. After reviewing the risks and benefits, the patient was deemed in satisfactory condition to undergo the procedure. After obtaining informed consent, the endoscope was passed under direct vision. Throughout the procedure, the patient's blood pressure, pulse, and oxygen saturations were monitored continuously. The gastroscope was introduced through the mouth, and advanced to the second part of duodenum. The upper GI endoscopy was accomplished without difficulty. The patient tolerated the procedure well. Scope In: 6:33:16 AM Scope Out: 6:38:42 AM Total Procedure Duration Time 0 hours 5 minutes 26 seconds Findings: The Z-line was regular and was found 42 cm from the incisors. Biopsies were taken with a cold forceps for histology. A small hiatal hernia was present. Diffuse mild inflammation characterized by linear erosions was found in the gastric antrum. Biopsies were taken with a cold forceps for histology. Diffuse mildly erythematous mucosa without active bleeding and with no stigmata of bleeding was found in the duodenal bulb. Biopsies were taken with a cold forceps for histology. Impression: - Z-line regular, 42 cm from the incisors. Biopsied. - Small hiatal hernia. - Acute chronic gastritis. Biopsied. - Erythematous duodenopathy. Biopsied. Recommendation: - Discharge patient to home. - Resume previous diet. - Continue present medications. - Use Pepcid (famotidine) 20 mg PO BID. Procedure Code(s): --- Professional --- 34755, Esophagogastroduodenoscopy, flexible, transoral; with biopsy, single or multiple Diagnosis Code(s): --- Professional --- K44.9, Diaphragmatic hernia without obstruction or gangrene K29.00, Acute gastritis without bleeding K29.50, Unspecified chronic gastritis without bleeding K31.89, Other diseases of stomach and duodenum CPT copyright 2017 [employer]. All rights reserved. The codes documented in this report are preliminary and upon sleeping car porter review may be revised to meet current compliance requirements. Jakob Gomez MD 04/26/2020 7:07:49 AM This report has been signed electronically. Number of Addenda: 0 Note Initiated On: 04/26/2020 6:16 AM
[2020-04-26 07:10] VITALS: BP 108/68; BP 132/80; PULSE 71; RESP 16; O2SAT 96
--- NOTE | 2020-04-26 07:12 | OP.COLON_ITS ---
Patient Name: Timothy Ahumada Procedure Date: 04/26/2020 6:39 AM Date of : 1955 Age: 64 Procedure: Colonoscopy Indications: Screening for colorectal malignant neoplasm Providers: Jakob Gomez MD Referring MD: Andrew Gomez Iii Medicines: See the Anesthesia note for documentation of the administered medications Patient Profile: Last Colonoscopy: more than 10 years ago. Complications: No immediate complications. Procedure: Pre-Anesthesia Assessment: - Prior to the procedure, a History and Physical was performed, and patient medications and allergies were reviewed. The patient's tolerance of previous anesthesia was also reviewed. The risks and benefits of the procedure and the sedation options and risks were discussed with the patient. All questions were answered, and informed consent was obtained. Prior Anticoagulants: The patient has taken Coumadin (warfarin), last dose was 3 days prior to procedure. [ASA Grade]. After reviewing the risks and benefits, the patient was deemed in satisfactory condition to undergo the procedure. - Prior to the procedure, a History and Physical was performed, and patient medications and allergies were reviewed. The patient's tolerance of previous anesthesia was also reviewed. The risks and benefits of the procedure and the sedation options and risks were discussed with the patient. All questions were answered, and informed consent was obtained. Prior Anticoagulants: The patient has taken Plavix (clopidogrel), last dose was 2 days prior to procedure. ASA Grade Assessment: III - A patient with severe systemic disease. After reviewing the risks and benefits, the patient was deemed in satisfactory condition to undergo the procedure. After I obtained informed consent, the scope was passed under direct vision. Throughout the procedure, the patient's blood pressure, pulse, and oxygen saturations were monitored continuously. The colonoscope was introduced through the anus and advanced to the cecum, identified by appendiceal orifice and ileocecal valve. The colonoscopy was performed without difficulty. The patient tolerated the procedure well. The quality of the bowel preparation was adequate to identify polyps. The ileocecal valve and the appendiceal orifice were photographed. Scope In: 6:41:52 AM Scope Withdrawal Time 0 hours 12 minutes 51 seconds Scope Out: 6:59:36 AM Total Procedure Duration Time 0 hours 17 minutes 44 seconds Findings: The digital rectal exam findings include non-thrombosed external hemorrhoids, non-thrombosed internal hemorrhoids and internal hemorrhoids that prolapse with straining, but spontaneously regress to the resting position (Grade II). Pertinent negatives include normal prostate (size, shape, and consistency). Multiple diverticula were found in the sigmoid colon and descending colon. There was a small lipoma, at the ileocecal valve. Biopsies were taken with a cold forceps for histology. The exam was otherwise without abnormality. A 4 mm polyp was found in the rectum (benign-appearing lesion). The polyp was sessile. The polyp was removed with a cold biopsy forceps. Resection and retrieval were complete. Impression: - Non-thrombosed external hemorrhoids, non-thrombosed internal hemorrhoids and internal hemorrhoids that prolapse with straining, but spontaneously regress to the resting position (Grade II) found on digital rectal exam. - Diverticulosis in the sigmoid colon and in the descending colon. - Small lipoma at the ileocecal valve. Biopsied. - The examination was otherwise normal. Recommendation: - Discharge patient to home. - Resume previous diet. - Continue present medications. - Repeat colonoscopy in 10 years for screening purposes. - Telephone my office for pathology results in 1 week. Procedure Code(s): --- Professional --- 53631, Colonoscopy, flexible; with biopsy, single or multiple Diagnosis Code(s): --- Professional --- Z12.11, Encounter for screening for malignant neoplasm of colon K64.1, Second degree hemorrhoids K64.4, Residual hemorrhoidal skin tags D17.5, Benign lipomatous neoplasm of intra-abdominal organs K57.30, Diverticulosis of large intestine without perforation or abscess without bleeding CPT copyright 2017 [employer]. All rights reserved. The codes documented in this report are preliminary and upon vehicle check in clerk review may be revised to meet current compliance requirements. Jakob Gomez MD 04/26/2020 7:11:51 AM This report has been signed electronically. Number of Addenda: 0 Note Initiated On: 04/26/2020 6:39 AM
--- NOTE | 2020-04-26 07:12 | OP.CCLET_ITS ---
04/26/2020 Andrew Gomez [address] [place] [address] Re : Colonoscopy procedure for Timothy Ahumada Dear Dr. Gomez This procedure was performed on Sunday, April 26, 2020. My impressions and recommendations are as follows: Impressions : - Non-thrombosed external hemorrhoids, non-thrombosed internal hemorrhoids and internal hemorrhoids that prolapse with straining, but spontaneously regress to the resting position (Grade II) found on digital rectal exam. - Diverticulosis in the sigmoid colon and in the descending colon. - Small lipoma at the ileocecal valve. Biopsied. - The examination was otherwise normal. Recommendations : - Discharge patient to home. - Resume previous diet. - Continue present medications. - Repeat colonoscopy in 10 years for screening purposes. - Telephone my office for pathology results in 1 week. My findings are described in the full procedure note, which is enclosed. If I can be of further assistance, please feel free to contact me at Doctor phone number(s): Work: . Sincerely, Jakob Gomez MD 04/26/2020 7:11:51 AM This report has been signed electronically.
[2020-04-26 07:15] VITALS: BP 106/61; BP 132/80; PULSE 68; RESP 16; O2SAT 93
[2020-04-26 07:20] VITALS: BP 108/59; BP 132/80; PULSE 59; RESP 16; TEMP 36.7; O2SAT 95
[2020-04-26 07:28] VITALS: BP 132/80
== END 2020-04-26 08:03 | disposition home or self-care (01) ==
LOC: EN 05:28 → AC 05:28
PROVIDERS: PCP Family Medicine; Referring Provider Family Medicine; Visit Provider Surgery
PROC: 0DJD8ZZ Inspection of Lower Intestinal Tract, Via Natural or Artificial Opening Endoscopic (ICD-10-PCS; CPT 45378; principal; 2020-04-26 06:25)
DX: Z12.11 Encounter for screening for malignant neoplasm of colon (principal); K62.1 Rectal polyp; D17.5 Benign lipomatous neoplasm of intra-abdominal organs; K29.00 Acute gastritis without bleeding; K29.50 Unspecified chronic gastritis without bleeding; K57.30 Diverticulosis of large intestine without perforation or abscess without bleeding; K44.9 Diaphragmatic hernia without obstruction or gangrene; K21.9 Gastro-esophageal reflux disease without esophagitis; K31.89 Other diseases of stomach and duodenum; K59.00 Constipation, unspecified; K64.1 Second degree hemorrhoids; K64.4 Residual hemorrhoidal skin tags; I25.10 Atherosclerotic heart disease of native coronary artery without angina pectoris; I48.0 Paroxysmal atrial fibrillation; E11.51 Type 2 diabetes mellitus with diabetic peripheral angiopathy without gangrene; I73.00 Raynaud's syndrome without gangrene; I10 Essential (primary) hypertension; E78.5 Hyperlipidemia, unspecified; G47.30 Sleep apnea, unspecified; F41.9 Anxiety disorder, unspecified; Z79.01 Long term (current) use of anticoagulants; Z79.02 Long term (current) use of antithrombotics/antiplatelets; Z79.82 Long term (current) use of aspirin; Z79.4 Long term (current) use of insulin; I25.2 Old myocardial infarction; Z95.5 Presence of coronary angioplasty implant and graft; Z95.1 Presence of aortocoronary bypass graft; Z87.19 Personal history of other diseases of the digestive system
CPT/HCPCS: 43239; 45380; 36416; 85610; 88305; 88342; J7120

== ENCOUNTER 2020-04-28 06:54 | Day surgery (SDC) | payer MEDICARE, BC, SELFPAY ==
[2020-04-21 14:02] VITALS: BMI 37.0
--- NOTE | 2020-04-23 12:15 | EKG12_ITS ---
Test Reason : PREOP Blood Pressure : / mmHG Vent. Rate : 077 BPM Atrial Rate : 077 BPM P-R Int : 150 ms QRS Dur : 086 ms QT Int : 366 ms P-R-T Axes : 061 052 069 degrees QTc Int : 414 ms Normal sinus rhythm Normal ECG Confirmed by YOLI JAEGER, BERNY ([id number]), assistant production editor JOSÉ MIGUEL NEWSOME ([id number]) on 04/26/2020 11:01:59 AM Referred By: Andrew Gomez Confirmed By:KAN KENT MD
[2020-04-28] VITALS (18 sets, daily range): BP systolic 132–163; BP diastolic 64–89; PULSE 53–71; RESP 12–18; TEMP 35.8–36.6; O2SAT 91–99; BMI 36.9
--- NOTE | 2020-04-28 | GALL_PTH ---
PATIENT: NOMAN STONE LOC: [facility] [place] U#:[id number] AGE/SX: 64/M ROOM: RE04/28/[address]: Dr. Jakob Gomez MD : 1955 BED: DIS: 04/28/2020 SPEC #: [id number] RECD: 04/28/20 11:18 STATUS: JEANIE JADEN #: [id number] SAM: 04/28/20 00:[address]: Jakob Gomez DEPT: SURGICAL PATHOLOGY RECD BY: Edwin Awad ENTERED: 04/28/20 11:18 SP TYPE: KATHI ESTRADA DR: Dr. Andrew Gomez III, MD Tissues: Gallbladder, NOS Procedures: Surgery Specimen Level III HEADER OPERATION: Laparoscopic cholecystectomy with IOC PRE-OP DIAGNOSIS: Cholelithiasis with chronic cholecystitis TISSUE SUBMITTED: Gallbladder MICROSCOPIC DIAGNOSIS Gallbladder, cholecystectomy: Chronic cholecystitis and cholelithiasis. AM:seamus 04/29/2020 MICROSCOPIC DESCRIPTION Slides are reviewed. GROSS DESCRIPTION Received is one container labeled with the patient's name and designated gallbladder. The specimen consists of a gallbladder measuring 8 x 3 x 2 cm. The external surface is smooth and glistening. Focally, it is granular, hemorrhagic and contains cautery artifact. The lumen of the gallbladder contains yellow mucoid bile and multiple black calculi ranging in size from 0.1 to 0.3 cm in greatest dimension. The mucosa is bile-stained and without any mass lesions. The gallbladder wall averages 0.2 cm in thickness and is free of mass lesions. Powder Expert sections of the gallbladder and the cystic duct at margin of resection are submitted in one cassette. / AM:seamus 04/28/20 TC:3 CPT: 50031
[2020-04-28] MEDS: Lactated Ringers 1,000 ML 100 ML IV (07:39)
[2020-04-28 08:06] LABS: International Normalized Ratio 1.4
--- NOTE | 2020-04-28 08:28 | HP.PCM_ITS ---
Problem List (1) Cholelithiasis with chronic cholecystitis Status: Chronic Qualifiers: Cholelithiasis location: gallbladder Biliary obstruction: without biliary obstruction Qualified Code(s): K80.10 - Calculus of gallbladder with chronic cholecystitis without obstruction History and Physical Date of Admission: 04/28/20 Problem List (1) Screening for malignant neoplasm of intestine Status: Acute (2) Epigastric pain Status: Acute History and Physical Date of Admission: 04/26/20 Intake Visit Reasons: CSCOPE/ EPIGASTRIC PAIN, [facility] 04/19 Chief Complaint: epigastric pain, constipation Financial Management Analyst Required: No Is patient in pain?: No Allergies adhesive Allergy (Verified 04/21/20 14:03) Unknown lisinopril Allergy (Verified 04/21/20 14:03) Unknown Penicillins Allergy (Verified 04/21/20 14:03) Unknown Medications Clopidogrel Bisulfate [Plavix] 75 mg PO DAILY 02/07/13 [History Confirmed 04/21/20] Atorvastatin Calcium [Lipitor] 80 mg PO QHS 07/05/15 [History Confirmed 04/21/20] Magnesium Oxide 500 mg PO DAILY 09/09/17 [History Confirmed 04/21/20] hydrocodone 5 mg-acetaminophen 325 mg tablet 1 tab PO Q12H PRN tab 10/31/17 [History Confirmed 04/21/20] lorazepam 0.5 mg tablet 0.5 mg PO BID PRN tab 10/31/17 [History Confirmed 04/21/20] carvedilol 25 mg tablet 12.5 mg PO BID tab 02/01/18 [History Confirmed 04/21/20] Aspirin E.C. [Ecotrin] 81 mg PO DAILY@0800 tab 02/27/18 [Rx Confirmed 04/21/20] Warfarin [Coumadin] 2.5 mg PO DAILY #30 tab 02/27/18 [Rx Confirmed 04/21/20] furosemide 20 mg tablet 40 mg PO DAILY tab 08/22/18 [History Confirmed 04/21/20] gemfibrozil 600 mg tablet 300 mg PO BID tab 08/22/18 [History Confirmed 04/21/20] nitroglycerin 0.4 mg sublingual tablet 0.4 mg SUBLINGUAL Q5M PRN #25 tab 02/24/19 [Rx Confirmed 04/21/20] mecobalamin (vitamin B12) 5,000 mcg disintegrating tablet 5,000 mcg PO QWEEK tab 10/27/19 [History Confirmed 04/21/20] cholecalciferol (vitamin D3) 25 mcg (1,000 unit) capsule 5,000 unit PO DAILY cap 04/07/20 [History Confirmed 04/21/20] cyclobenzaprine 10 mg tablet 10 mg PO DAILY PRN tab 04/07/20 [History Confirmed 04/21/20] docusate sodium 100 mg tablet 100 mg PO DAILY 04/07/20 [History Confirmed 04/21/20] insulin glargine 100 unit/mL subcutaneous solution 45 unit SC QHS ml 04/07/20 [History Confirmed 04/21/20] insulin lispro 100 unit/mL subcutaneous pen 20 unit SC TID ml 04/07/20 [History Confirmed 04/21/20] isosorbide mononitrate 120 mg tablet,extended release 24 hr 120 mg PO BID #180 tab 04/08/20 [Rx Confirmed 04/21/20] [facility] Medical History Essential hypertension (Chronic) Chest pain, unspecified (Acute) Renal insufficiency (Chronic) NSTEMI (non-ST elevated myocardial infarction) (Acute) Atherosclerotic heart disease of [place] coronary artery without angina pectoris (Chronic) Paroxysmal atrial fibrillation (Chronic) Bradycardia (Inactive) Type 2 diabetes mellitus (Chronic) PAD (peripheral artery disease) (Chronic) HLD (hyperlipidemia) (Chronic) Acute renal failure (Acute) GERD (gastroesophageal reflux disease) (Chronic) Raynauds disease (Chronic) CAD (coronary artery disease) (Inactive) Hypertension (Inactive) Surgical History Presence of stent in coronary artery (Chronic ~04/20/15) H/O coronary artery bypass surgery (Chronic 09/21/17) History of angioplasty of peripheral vessel (Chronic) Postsurgical percutaneous transluminal coronary angioplasty (PTCA) status (Chronic) History of inguinal hernia repair (Resolved) Family History Father Heart disease Grandmother Hypertension Grandfather Heart disease Myocardial infarction Social History (Updated 04/21/20 @ 15:[address] Jakob Gomez MD) Smoking Status: Never smoker alcohol intake: current HPI HPI HPI: NOMAN STONE, is a 64 M who presents to the office today for who is referred today because of episode approximately a week ago of severe aching pressure-like right upper quadrant pain. It abated after 6 hours. He denies fever or chills or jaundice. At the [facility] [place] on April 19, 2020 he had a gallbladder ultrasound. The gallbladder was not distended. There was some layering of sludge and some subtle acoustic shadowing suggesting presence of tiny stones. No wall thickening or fluid. There is felt to be a small polyp noted in dependent body wall. There is heterogenous hepatic echogenicity consistent with fatty infiltration. The pancreas could not be visualized. 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 He notes that his stress level has significantly decreased. It is of note that when he became Medicare age he had to stop his Trulicity secondary to expense. His hemoglobin A1c then climbed to 9.9. Now with some dieting and exercise his hemoglobin A1c is 9.1. Most recent amylase level was 53. Lipase 80. That was drawn on April 16, 2020. Cholesterol is 115 with triglyceride 146. HDL is 25 and LDL 61. Albumin is 4.1. Total bilirubin and alkaline phosphatase and AST all normal. BUN was 22 and creatinine 1.42. White count was 8.31 with a hemoglobin of 14.1 and hematocrit of 43.3 platelet count 200,000. He has been on chronic acid suppression medication because of previous history of gastritis. He points to the epigastric right upper quadrant area as the source of his pain. He also has significant cardiac dysfunction. Approximately 2 years ago he had coronary bypass surgery x5. This was performed at [facility]. Apparently 4 of the 5 bypass grafts have failed. He does require chronic nitroglycerin therapy. He has been trying to improve his exercise and walks on a treadmill now 30 minutes a day. When he was working he frequently have to take supplemental sublingual nitroglycerin. He has not had a colonoscopy for at least 10 years. He has not noticed any bright red blood per rectum or melena. He does have a history of chronic constipation. He does require a daily [place] to try to help him with bilateral lower extremity pain. He has end-stage bilateral lower extremity arterial occlusive disease. I have previously assisted him with atherectomy of the right lower extremity and atherectomy with stenting of the left lower extremity. He now has had majority of his great saphenous veins harvested. He has leg pain that occurs at night. Has to get up and drop his legs down. This is been a stable situation for him. He has managed on warfarin and clopidogrel and aspirin therapy. His associate theatre professor is Dr. Tex Coker and he has seen him quite recently. The patient is referred by his primary care physician Dr. Andrew Gomez, III for surgical consultation regarding the epigastric pain and need for screening colonoscopy. Written copy my surgical consult recommendations will be returned to him. HPI HPI HPI: NOMAN STONE, is a 64 M who presents to the office today for ROS General General: Yes weight change; no appetite, fatigue, colon cancer, breast cancer or weakness HEENT HEENT: Yes eye surgery; no difficulty swallowing, eye injury, swollen glands or hoarseness Endo Endocrine: Yes diabetes mellitus; no thyroid disease, thyroid cancer, Hair loss, heat intolerance or cold intolerance Musc Musculoskeletal: Yes back problems; no arthritis, rheumatoid arthritis, gout or joint pain Cardio Cardiovascular: Yes heart disease, atrial fibrillation, heart attack and heart stent; no murmur, pacemaker, high blood pressure, palpitations, shortness of breat with exertion or chest pain Psych Psychiatric: Yes anxiety; no depression or hearing voices Resp Respiratory: No shortness of breath, Yes sleep apnea, No cough, No COPD, No asthma, No emphysema, No wheezing Gastro Gastrointestinal: Yes abdominal pain, No nausea or vomiting, No diarrhea, Yes constipation, No blood in stool, Yes acid reflux, Yes hemorrhoids, No ulcers, Yes gallbladder problem, No black,tarry stools Harris Hematologic: Yes blood thinners, No blood disorders, No bleeding, No anemia, No blood clots Neuro Neurologic: No weakness Exam Const General: cooperative, comfortable, no acute distress Nutritional Appearance: obese Orientation: alert, awake [facility] Head: normal to inspection Eyes General: appearance normal, both eyes and all related structures Chest Other: Well-healed median sternotomy incision Resp Effort & Inspection: normal respiratory effort Auscultation: clear to auscultation bilaterally Cardio Rate: regular rate Rhythm: regular rhythm Heart Sounds: no murmurs GI Palpation: soft, no hepatosplenomegaly Auscultation: normal bowel sounds Other: Nontender, I am not able to palpate the abdominal aorta. Musc Cervical Spine: normal cervical lordosis Skin Other: Vein harvest left lower extremity. Mild nonpitting edema bilateral lower extremities left worse than the right Neuro General: alert Extrem General: no calf tenderness Psych Affect: normal affect Assessment & Plan Problems 1. Epigastric pain R10.13 2. Calculus of gallbladder with chronic cholecystitis without obstruction K80.10 3. H/O coronary artery bypass surgery Z95.1 4. Type 2 diabetes mellitus with complication, unspecified whether snf insulin use E11.8 5. Peripheral arterial disease I73.9 6. Screening for malignant neoplasm of intestine Z12.10 Plan Complex history of severe cardiac disease congenital arterial disease with failed coronary bypass grafting x5 with only one remaining patent graft. History of severe bilateral extremity arterial occlusive disease. Chronic utilization of nitroglycerin because of chest pain. New onset epigastric right upper quadrant pain possible gallstone related. Need for screening colonoscopy. Chronic anticoagulation on Coumadin and clopidogrel and aspirin. Increased risk for cardiac event. Increased risk for bleeding. Recent glucose [id number] with a hemoglobin A1c as high as 9.9 now controlled back to 9.1 I recommended the patient a combined esophagogastroduodenoscopy with possible biopsy and a screening colonoscopy with possible biopsy or polypectomy as indicated. He is aware of the technique, benefit, risk, alternatives. We will have him hold his clopidogrel and Coumadin 1 day prior to that endoscopic e valuation and we will use monitored anesthesia care. He will be scheduled 3 days hence for a laparoscopic cholecystectomy with selective cholangiography. He will remain off of his clopidogrel and Coumadin during that interval. We have discussed this plan with Dr. Tex Coker and it was suggested that he could be off of his dual anticoagulation for 5 days preintervention. The patient has had an opportunity to ask and have questions answered. He is clearly aware that he is at increased interventional risk. He is aware that we may need to convert to an open gallbladder procedure if increased bleeding is encountered. He has had an opportunity to ask and have questions answered. We will schedule and proceed at his discretion. Copy: Dr. Andrew Gomez, III and Dr. Tex Gomez M.D., F.A.C.S. 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 There are no clinical changes since date of exam. Plan to proceed with a laparoscopic cholecystectomy with selective cholangiography today. The patient is aware of the technique, benefit, risk, alternatives. He has had an opportunity to ask and have questions answered. We will proceed as noted. Procedure Criteria Procedure Type: Elective COVID Risk Discussion: The surgeon/proceduralist and patient have discussed in detail the risk of exposure to and/or potential harm posed by the COVID-19 virus with having a surgery/procedure at this time versus the risk of delaying the surgery/procedure. It is not possible to know either the risk of delaying the surgery or procedure or chance of getting an infection with perfect accuracy, but a joint decision was made between the patient and the surgeon/proceduralist to proceed at this time with the scheduled surgery/procedure as indicated on the consent form. I have re-examined the patient. There are no clinical changes since date of exam. Jakob Gomez M.D., F.A.C.S. Procedure Criteria Procedure Type: Elective COVID Risk Discussion: The surgeon/proceduralist and patient have discussed in detail the risk of exposure to and/or potential harm posed by the COVID-19 virus with having a surgery/procedure at this time versus the risk of delaying the surgery/procedure. It is not possible to know either the risk of delaying the surgery or procedure or chance of getting an infection with perfect accuracy, but a joint decision was made between the patient and the surgeon/proceduralist to proceed at this time with the scheduled surgery/procedure as indicated on the consent form.
--- NOTE | 2020-04-28 08:30 | DCINST_ITS ---
Discharge Diet: Light diet - advance as tolerated - if you have questions about your diet instructions, please talk to you doctor. Discharge Activity: May Not Drive - for 3-5 days or while taking narcotic pain medicine. May shower in (days): 1 Lifting Restrictions: 10 pounds Call your doctor if your incision/area has: Continuous Slow Oozing, Sudden Increased Bleeding, Increased Pain/ Swelling, Increased Redness, Foul Smelling Discharge Call your doctor if you observe: Fever of 101 or Higher Suture Line Care: Avoid Pulling/Pushing, Avoid Pinching/Bending Additional Dressing/Incision Instructions:: Change or remove dressing in 4 days. Leave steri-strips in place for 1 week. Allergies/Adverse Reactions: Allergies adhesive Allergy (Verified 04/26/20 05:53) Unknown lisinopril Allergy (Verified 04/26/20 05:53) Unknown Penicillins Allergy (Verified 04/26/20 05:53) Unknown Medications to take at Discharge Clopidogrel Bisulfate [Plavix] 75 mg PO DAILY 02/07/13 Atorvastatin Calcium [Lipitor] 80 mg PO QHS 07/05/15 Magnesium Oxide 500 mg PO DAILY 09/09/17 hydrocodone 5 mg-acetaminophen 325 mg tablet 1 tab PO Q12H PRN tab 10/31/17 lorazepam 0.5 mg tablet 0.5 mg PO BID PRN tab 10/31/17 carvedilol 25 mg tablet 12.5 mg PO BID tab 02/01/18 Aspirin E.C. [Ecotrin] 81 mg PO DAILY@0800 tab 02/27/18 furosemide 20 mg tablet 40 mg PO DAILY tab 08/22/18 gemfibrozil 600 mg tablet 300 mg PO BID tab 08/22/18 nitroglycerin 0.4 mg sublingual tablet 0.4 mg SUBLINGUAL Q5M PRN #25 tab 02/24/19 mecobalamin (vitamin B12) 5,000 mcg disintegrating tablet 5,000 mcg PO QWEEK tab 10/27/19 cholecalciferol (vitamin D3) 25 mcg (1,000 unit) capsule 5,000 unit PO DAILY cap 04/07/20 cyclobenzaprine 10 mg tablet 10 mg PO DAILY PRN tab 04/07/20 docusate sodium 100 mg tablet 100 mg PO DAILY 04/07/20 insulin glargine 100 unit/mL subcutaneous solution 45 unit SC QHS ml 04/07/20 insulin lispro 100 unit/mL subcutaneous pen 20 unit SC TID ml 04/07/20 isosorbide mononitrate 120 mg tablet,extended release 24 hr 120 mg PO BID #180 tab 04/08/20 Warfarin [Coumadin] 2.5 mg PO MOTUWEFRSA 04/22/20 Warfarin [Coumadin] 5 mg PO SUTH 04/22/20 Famotidine 20 mg PO BID #180 tab 04/26/20 Primary Care Physician: Andrew Gomez III, MD [Primary Care Provider] - Test Results: Test results from this visit will be discussed in further detail at your follow- up appointment, if applicable. Please Follow Up With: Jakob Gmoez MD - [phone] When: Call for appt. May be phone, virtual, or on-site
--- NOTE | 2020-04-28 09:30 | RAD_ITS ---
STUDY: INTRAOPERATIVE CHOLANGIOGRAM. REASON FOR EXAM: Male, 64 years old. LAP ANNA FLUOROSCOPY TIME (if supplied): ( 14.7 seconds ) minutes/seconds. The cine loop of 94 images were submitted. TECHNIQUE: An intraoperative cholangiogram was performed by the surgeon. Imaging was submitted. COMPARISON: None. FINDINGS: The visualized intrahepatic biliary ducts are unremarkable. The common bile duct is not dilated. No intraluminal filling defect is seen. There is free flow of contrast into the duodenum. RAD/Cholangiogram/ O R,Initial IMPRESSION: Unremarkable intraoperative cholangiogram. Electronically Signed: Fransico Arzate MD at 12:50 EST , Service support ,
[2020-04-28] MEDS: Bupivacaine Mpf 0.5% 30 ML VIAL (10:21)
--- NOTE | 2020-04-28 10:21 | OP.PCM_ITS ---
Problem List (1) Cholelithiasis with chronic cholecystitis Status: Chronic Qualifiers: Cholelithiasis location: gallbladder Biliary obstruction: without biliary obstruction Qualified Code(s): K80.10 - Calculus of gallbladder with chronic cholecystitis without obstruction Report of Operation Date of Procedure: 04/28/20 Pre-Operative Diagnosis: Chronic cholecystitis cholelithiasis Post-Operative Diagnosis: Same Surgery/Procedure Performed:: Laparoscopic cholecystectomy with cholangiography Description of Surgical Findings:: Timeout and informed consent was obtained. 64-year-old gentleman was taken to the operating placed on the table underwent general endotracheal intubation esthesia. Clindamycin 900 mg were given intravenously. The abdomen was sterilely prepped and draped. 0.5% Marcaine was used as a local anesthetic. A total of 30 cc was used. Skin sites were preanesthetized. A vertical infraumbilical incision was created. Holding sutures of 0 Vicryl placed. Varies needle inserted. Saline drop test performed. The abdomen was insufflated with CO2 to a pressure of 10 mmHg pressure. 10 mm trocar inserted. 10 mm laparoscope inserted. No evidence of any trocar injuries. Under direct visualization 5 mm ports were placed in the epigastric mid abdomen right upper quadrant. The gallbladder was distracted. Blunt dissection was instituted the infundibulum. The cystic duct cystic artery clearly identified. Cystic artery was clipped proximally and distally with hemolock clips prior to transecting it. Hemolock clips were placed on the cystic duct this was quite small incision made the cystic duct and through a 14-gauge Angiocath a cholangiogram catheter was inserted. Fluoroscopically control cholangiograms were obtained demonstrating normal ductal anatomy. The cholangiogram catheter was removed 2 hemolock clips were placed on the cystic duct stump prior to transecting it. The gallbladder was then tediously dissected from the liver bed. This was actually quite difficult due to the adherence of the gallbladder. No stone spillage or bile spillage occurred. The gallbladder was then cleanly placed in a retrieval bag. The right upper quadrant was irrigated and aspirated free of excess fluid. The liver bed was treated with electrocautery. Fibular was addit ionally placed in the liver bed to assist with hemostasis. The right upper quadrant was irrigated and aspirated free of excess fluid. The gallbladder was exited the umbilicus. The remaining trochars were removed under direct visualization. The abdomen was allowed to deflate of the CO2 through an antiviral valve. The fascia at the umbilicus approximated with 2-0 Vicryl [id number] suture. Skin edges approximated opted for Monocryl subdermal stitches. Steri-Strips Telfa OpSite dressings applied. Sponge and instrument and needle counts were reported to the surgeon to be correct. Specimen gallbladder. Drains none. Blood loss minimal. The patient was taken to the recovery area in satisfactory condition without apparent complication Jakob Gomez M.D., F.A.C.S. Type of Anesthesia:: General Anesthesiologist: Loy Buchanan
--- NOTE | 2020-04-28 10:48 | EKG12_ITS ---
Test Reason : Blood Pressure : / mmHG Vent. Rate : 054 BPM Atrial Rate : 054 BPM P-R Int : 200 ms QRS Dur : 102 ms QT Int : 438 ms P-R-T Axes : 055 033 051 degrees QTc Int : 415 ms Sinus bradycardia Otherwise normal ECG Confirmed by RICHARD JAEGER, BASIM ([id number]), managing editor RUBEN RIVAS ([id number]) on 04/30/2020 10:57:45 AM Referred By: Andrew Gomez Confirmed By:BASIM RAMOS MD
[2020-04-28 11:06] LABS: Bedside Glucose 191 mg/dL (70-110)
--- NOTE | 2020-04-28 13:30 | SUR.PHASEI ---
DESATS INTO LOW-MID 80'S WHEN ASLEEP, BACK UP TO 91-96% ON ROOM AIR WHEN AWAKE. PATIENT HAS KNOWN ARNOLDO AND USES BIPAP AT HOME FOR ANY SLEEP. PATIENT ALSO HAS REYNAUD'S AND PERIPHERAL VASCULAR DISEASE. DR VASQUEZ AWARE. USING INCENTIVE SPIROMETER WITH ENCOURAGEMENT.
[2020-04-28] MEDS: Tamsulosin HCl 0.4 MG Capsule PO (16:27)
[2020-04-28] MEDS: HYDROcodone Bitartrate/Apap 5/325 Tablet PO (16:27)
== END 2020-04-28 17:00 | disposition home or self-care (01) ==
LOC: SDC 06:55 → AC 06:56
PROVIDERS: Anesthesiology; PCP Family Medicine; Referring Provider Family Medicine; Visit Provider Surgery
PROC: (CPT 47610; principal; 2020-04-28 08:45)
DX: K80.10 Calculus of gallbladder with chronic cholecystitis without obstruction (principal); Z20.822 Contact with and (suspected) exposure to COVID-19; I48.0 Paroxysmal atrial fibrillation; E11.51 Type 2 diabetes mellitus with diabetic peripheral angiopathy without gangrene; I10 Essential (primary) hypertension; E78.5 Hyperlipidemia, unspecified; K21.9 Gastro-esophageal reflux disease without esophagitis; F41.9 Anxiety disorder, unspecified; E66.9 Obesity, unspecified; Z79.02 Long term (current) use of antithrombotics/antiplatelets; Z79.82 Long term (current) use of aspirin; Z79.01 Long term (current) use of anticoagulants; Z79.4 Long term (current) use of insulin; Z79.899 Other long term (current) drug therapy; I25.2 Old myocardial infarction; Z87.19 Personal history of other diseases of the digestive system; Z95.1 Presence of aortocoronary bypass graft; Z95.5 Presence of coronary angioplasty implant and graft
CPT/HCPCS: 00790; 47563; 36416; 74300; 76000; 82962; 84484; 85610; 87426; 88304; 93005; C9803; J7120; J2405

== ENCOUNTER → 2020-12-01 15:09 | Outpatient (CLI) | payer MEDICARE, BC, SELFPAY ==
--- NOTE | 2020-12-01 15:12 | RAD_ITS ---
STUDY: X-RAY - PELVIS AND RIGHT HIP REASON FOR EXAM: Male, 65 years old. HIP AND GROIN PAIN TECHNIQUE: 3 views of the pelvis and hip. COMPARISON: None. FINDINGS: There is a non-specific bowel gas pattern. Normal visualized soft tissue structures. There are atherosclerotic vascular calcifications. There are left-sided pelvic phleboliths. There is narrowing with cortical sclerosis and osteophyte formation of the sacroiliac joint consistent with degenerative osteoarthritic changes. Normal bilateral superior and inferior pubic rami. Normal pubic symphysis. Normal bilateral ischial tuberosities. Normal visualized femoral head. Normal acetabulum. There is mild articular joint space narrowing of the hip. RAD/HIP, UNI W/ Pelvis 2-3 Views IMPRESSION: Degenerative disease as described. No evidence of fracture involving the right hip. Electronically Signed: Shireen Parra MD at 0:57 EDT , Service support ,
== END ==
PROVIDERS: PCP Family Medicine; Referring Provider Anesthesiology Pain Medicine; Visit Provider Anesthesiology Pain Medicine
DX: M25.551 Pain in right hip (principal); R10.30 Lower abdominal pain, unspecified
CPT/HCPCS: 73502

== ENCOUNTER 2021-01-02 10:30 | Emergency (ER) | payer MEDICARE, BC, SELFPAY ==
[2021-01-02 10:31] VITALS: BP 119/70; PULSE 72; RESP 14; TEMP 36.4; O2SAT 97; BMI 37.2
[2021-01-02 10:49] VITALS: BP 137/74; PULSE 64; RESP 16; TEMP 36.4
--- NOTE | 2021-01-02 11:03 | EDS_ITS ---
HPI HPI - GI History of Present Illness Chief Complaint: Abd Pain Narrative Narrative: 55-year-old male presenting with right lower quadrant abdominal pain which has been present for 3 days but is worsening. Complaining of inability to sleep secondary to pain. He states when the pain initially started he had some dry heaves but has not vomited or had this since. He denies fever. He is not having any diarrhea but does state that he is slightly constipated. He does take a daily stool softener and note that his stool is somewhat slowed although he is having bowel movements. Patient states that anytime he moves he has pain in the right lower quadrant. He states the car ride was also very painful. Patient is on Plavix but has been off for the last 2 days secondary to a scheduled injection. Patient was also on Coumadin for paroxysmal A. fib as well as peripheral artery disease. Patient states that his last 1 was 2.7 on . Patient states his only abdominal surgery was a gallbladder removal in April. [facility] Medical History Acute renal failure Atherosclerotic heart disease of [place] coronary artery without angina pectoris Bilateral carotid artery stenosis Bradycardia CAD (coronary artery disease) Chest pain, unspecified Cholelithiasis with chronic cholecystitis Epigastric pain Essential hypertension GERD (gastroesophageal reflux disease) HLD (hyperlipidemia) Hypertension Microalbuminuria NSTEMI (non-ST elevated myocardial infarction) Obesity (BMI 30-39.9) PAD (peripheral artery disease) Paroxysmal atrial fibrillation Raynauds disease Renal insufficiency Screening for malignant neoplasm of intestine Type 2 diabetes mellitus Home Medications clopidogrel 75 mg PO DAILY 02/07/13 [History Last Taken 04/24/20] atorvastatin 80 mg PO QHS 07/05/15 [History Last Taken 02/23/18] magnesium oxide 500 mg PO DAILY 09/09/17 [History Last Taken 02/23/18] hydrocodone-acetaminophen 5-325mg 5mg-325mg 1 tab PO Q12H PRN tab 10/31/17 [History Last Taken 02/24/18] lorazepam 0.5 mg tablet 0.5 mg PO BID PRN tab 10/31/17 [History Last Taken 02/23/18] carvedilol 25 mg tablet 12.5 mg PO BID tab 02/01/18 [History Last Taken 02/24/18] aspirin 81 mg PO DAILY@0800 tab 02/27/18 [Rx Last Taken 04/25/20 18:00] furosemide 20 mg tablet 40 mg PO DAILY tab 08/22/18 [History Last Taken Unknown] nitroglycerin 0.4 mg sublingual tablet 0.4 mg SUBLINGUAL Q5M PRN #25 tab 02/24/19 [Rx Last Taken Unknown] mecobalamin (vitamin B12) 5,000 mcg disintegrating tablet 5,000 mcg PO QWEEK tab 10/27/19 [History Last Taken Unknown] cholecalciferol (vitamin D3) 25 mcg (1,000 unit) capsule 5,000 unit PO DAILY cap 04/07/20 [History Last Taken Unknown] cyclobenzaprine 10 mg tablet 10 mg PO DAILY PRN tab 04/07/20 [History Last Taken Unknown] docusate sodium 100 mg tablet 100 mg PO DAILY 04/07/20 [History Last Taken Unknown] isosorbide mononitrate 120 mg tablet,extended release 24 hr 120 mg PO BID #180 tab 04/08/20 [Rx Last Taken Unknown] warfarin 2.5 mg PO MOTUWEFRSA 04/22/20 [History Last Taken 04/24/20] famotidine 20 mg PO BID #180 tab 04/26/20 [Rx Last Taken Unknown] fenofibric acid (choline) 135 mg capsule,delayed release 135 mg PO DAILY 10/21/20 [History Last Taken Unknown] insulin glargine 100 unit/mL (3 mL) subcutaneous pen 40 unit SUBCUT QPM ml 12/13/20 [History Last Taken Unknown] insulin lispro 100 unit/mL subcutaneous pen 30 unit SC .TIDCM ml 12/13/20 [History Last Taken Unknown] losartan 25 mg tablet 25 mg PO DAILY 12/13/20 [History Last Taken Unknown] warfarin 2.5 mg tablet 5 mg PO SUTH tab 12/13/20 [History Last Taken Unknown] ciprofloxacin HCl [Cipro] 500 mg PO BID #20 tab 01/02/21 [Rx Last Taken Unknown] metronidazole 500 mg PO Q6H 10 Days #40 tab 01/02/21 [Rx Last Taken Unknown] ondansetron HCl [Zofran] 4 mg PO Q8H PRN #14 tab 01/02/21 [Rx Last Taken Unknown] oxycodone 5 mg PO Q6H 3 Days #12 tab 01/02/21 [Rx Last Taken Unknown] Allergy/AdvReac Type Severity Reaction Status Date / Time adhesive Allergy Unknown Verified 01/02/21 10:31 lisinopril Allergy Unknown Verified 01/02/21 10:31 Penicillins Allergy Unknown Verified 01/02/21 10:31 Family History Father Heart disease Grandmother Hypertension Grandfather Heart disease Myocardial infarction Surgical History H/O coronary artery bypass surgery (09/21/17) History of angioplasty of peripheral vessel History of inguinal hernia repair Hx of cholecystectomy Postsurgical percutaneous transluminal coronary angioplasty (PTCA) status Presence of stent in coronary artery (~04/20/15) S/P CABG x 5 Social History Smoking Status: Never smoker alcohol intake: current ROS ROS ED Constitutional Constitutional ED: Reports chills; Denies fever(s) ENT ENT ED: Denies rhinorrhea or sore throat Cardiovascular Cardiovascular: Denies palpitations or racing heartbeat Respiratory/Chest Respiratory/Chest: Denies cough or dyspnea Gastrointestinal Gastrointestinal: Reports abdominal pain, constipation and nausea; Denies diarrhea or vomiting Genitourinary Genitourinary ED: Denies dysuria or hematuria Musculoskeletal Musculoskeletal: Denies arthralgias or myalgias Integumentary Denies Abrasions or rash Neurologic Neurologic: Denies headache(s) or paresthesias EXAM Physical Exam Const Vital Signs: 01/02/21 10:31 01/02/21 10:49 01/02/21 12:50 Temperature 97.5 F L 97.5 F L Temperature Source Temporal Temporal Pulse Rate 72 64 Respiratory Rate 14 16 Blood Pressure 119/70 137/74 H Blood Pressure Mean 86 95 Pulse Ox 97 Oxygen Delivery Method Room Air Room Air 01/02/21 13:04 Temperature Temperature Source Pulse Rate 88 Respiratory Rate 14 Blood Pressure 145/72 H Blood Pressure Mean 96 Pulse Ox 98 Oxygen Delivery Method Room Air Positive obese General Appearance ED: NAD; Negative for pallor Nutritional Appearance: obese HEENT Reports moist mucous membranes normocephalic and atraumatic Eyes PERRL and EOMs intact bilaterally General Eye ED: Negative for pale conjunctiva or scleral icterus Resp normal respiratory effort and clear to auscultation bilaterally Cardio regular rate and regular rhythm GI Palpation: tender RLQ Back/Spine no CVA tenderness Neuro CN's II-XII intact bilaterally Sensorium / Orientation: alert, oriented to person, oriented to place and oriented to time Psych mental status grossly normal and thought process normal Skin General Skin Exam: Negative for jaundice or pallor MDM MDM MDM Narrative Medical decision making narrative: Patient presenting with right lower quadrant pain. He states this has been ongoing for a couple of days. Has not had a f ever. He does not have diarrhea but is having some constipation issues. I did obtain blood work and is a slight leukocytosis of 11.2. Hemoglobin hematocrit are stable. INR is therapeutic. Creatinine is slightly elevated at 1.75 this does appear to fluctuate over time and is not as high as creatinine. Patient counseled to remain well-hydrated. Urinalysis negative for infection. Patient had CT of the abdomen pelvis which identifies diverticulitis with the sigmoid colon lying in the right lower quadrant and a normal appendix is visualized. Given this patient will be started on Cipro and Flagyl due to his penicillin allergy. He already has pain medication at home. He will be given Zofran. He is counseled to monitor his INR given his new medications. He will follow-up with his PCP or return for new or worsening symptoms. Impression: 1. Acute appendicitis 2. Acute on chronic kidney disease Lab Data Attestation: I reviewed the patient's lab results. Labs: Laboratory Results - last 24 hr 01/02/21 01/02/21 01/02/21 11:25 11:25 11:25 WBC 11.2 H RBC 4.74 Hgb 13.9 Hct 43.0 MCV 90.7 MCH 29.3 MCHC 32.3 RDW Std Deviation 47.5 H RDW Coeff of [place] 14.1 Plt Count 211 MPV 10.1 Immature Gran % (Auto) 0.500 Neut % (Auto) 68.8 Lymph % (Auto) 18.5 L Swain % (Auto) 8.8 Eos % (Auto) 3.0 Baso % (Auto) 0.4 Absolute Neuts (auto) 7.7 Absolute Lymphs (auto) 2.07 Nucleated RBC % 0 PT 25.4 H INR 2.4 Sodium 138 Potassium 3.7 Chloride 102 Carbon Dioxide 29.0 Anion Gap 7 BUN 24 H Creatinine 1.75 H Estim Creat Clear Calc 40.17 Est GFR (MDRD) Af Amer 50 L Est GFR (MDRD) Non-Af 42 L BUN/Creatinine Ratio 13.7 Glucose 217 H Calcium 9.4 Total Bilirubin 0.80 AST 14 L ALT 26 Alkaline Phosphatase 45 Total Protein 7.7 Albumin 3.5 Globulin 4.2 Albumin/Globulin Ratio 0.8 L Urine Color Urine Clarity Urine pH Ur Specific [place] Urine Protein Urine Glucose (UA) Urine Ketones Urine Occult Blood Urine Nitrite Urine Bilirubin Urine Urobilinogen Ur Leukocyte Esterase Urine RBC Urine WBC Ur Squamous Epith Cells Urine Bacteria Urine Mucus 01/02/21 12:04 WBC RBC Hgb Hct MCV MCH MCHC RDW Std Deviation RDW Coeff of Chely Plt Count MPV Immature Gran % (Auto) Neut % (Auto) Lymph % (Auto) Swain % (Auto) Eos % (Auto) Baso % (Auto) Absolute Neuts (auto) Absolute Lymphs (auto) Nucleated RBC % PT INR Sodium Potassium Chloride Carbon Dioxide Anion Gap BUN Creatinine Estim Creat Clear Calc Est GFR (MDRD) Af Amer Est GFR (MDRD) Non-Af BUN/Creatinine Ratio Glucose Calcium Total Bilirubin AST ALT Alkaline Phosphatase Total Protein Albumin Globulin Albumin/Globulin Ratio Urine Color Yellow Urine Clarity Clear Urine pH 5.0 Ur Specific Webster 1.020 Urine Protein 15 H Urine Glucose (UA) Normal Urine Ketones Negative Urine Occult Blood Negative Urine Nitrite Negative Urine Bilirubin Negative Urine Urobilinogen Normal Ur Leukocyte Esterase Negative Urine RBC 0 SEEN Urine WBC 0 SEEN Ur Squamous Epith Cells 0-5 SEEN Urine Bacteria 0 SEEN Urine Mucus 0 SEEN Radiography Diagnostic Testing: Clinical Impression(s) from Imaging Studies Abdomen/Pelvis CT 01/02/21 11:12 IMPRESSION: Acute sigmoid diverticulitis. This segment of sigmoid colon does reside in the right lower quadrant. The appendix is identified and normal. Electronically Signed: Silvia To MD at 13:06 EDT , Service support , Discharge Plan Triage Chief Complaint: Abd Pain ED Provider: Sunny Melton Dx/Rx/DC Orders Instructions: ED Diverticulitis Prescriptions: New ciprofloxacin HCl [Cipro] 500 mg tablet 500 mg PO BID Qty: 20 RF: 0 metronidazole 500 mg tablet 500 mg PO Q6H 10 Days Qty: 40 RF: 0 ondansetron HCl [Zofran] 4 mg tablet 4 mg PO Q8H PRN (Reason: nausea and vomiting) Qty: 14 RF: 0 oxycodone 5 mg tablet 5 mg PO Q6H 3 Days Qty: 12 RF: 0 No Action hydrocodone-acetaminophen 5-325 mg tablet 1 tab PO Q12H PRN (Reason: Pain) RF: 0 lorazepam 0.5 mg tablet 0.5 mg PO BID PRN (Reason: Anxiety) RF: 0 mecobalamin (vitamin B12) 5,000 mcg disintegrating tablet 5,000 mcg tablet,disintegrating 5,000 mcg PO QWEEK RF: 0 furosemide [Lasix] 20 mg tablet 40 mg PO DAILY RF: 0 nitroglycerin 0.4 mg tablet, sublingual 0.4 mg sublingual Q5M PRN (Reason: Chest Pain) Qty: 25 RF: 12 cyclobenzaprine 10 mg tablet 10 mg PO DAILY PRN (Reason: muscle spasms) RF: 0 docusate sodium 100 mg tablet 100 mg PO DAILY RF: 0 insulin lispro [Admelog SoloStar U-100 Insulin] 100 unit/mL insulin pen 30 unit SC .TIDCM RF: 0 fenofibric acid (choline) 135 mg capsule,delayed release(DR/EC) 135 mg PO DAILY RF: 0 warfarin 2.5 mg tablet 5 mg PO SUTH RF: 0 losartan 25 mg tablet 25 mg PO DAILY RF: 0 Lantus Solostar U-100 Insulin 100 unit/mL (3 mL) insulin pen 40 unit subcut QPM RF: 0 clopidogrel 75 MG tablet 75 mg PO DAILY RF: 0 cholecalciferol (vitamin D3) 25 mcg (1,000 unit) capsule 5,000 unit PO DAILY RF: 0 atorvastatin 80 MG tablet 80 mg PO QHS RF: 0 carvedilol 25 mg tablet 12.5 mg PO BID RF: 0 magnesium oxide 500 MG capsule 500 mg PO DAILY RF: 0 aspirin 81 MG tablet 81 mg PO DAILY@0800 RF: 0 warfarin 2.5 MG tablet 2.5 mg PO MOTUWEFRSA RF: 0 famotidine 20 MG tablet 20 mg PO BID Qty: 180 RF: 2 isosorbide mononitrate 120 mg tablet extended release 24 hr 120 mg PO BID Qty: 180 RF: 4 Primary Care Provider: Uche Jaimes Referrals: Uche Jaimes MD [Primary Care Provider] - Disposition Disposition: Home, Self Care
--- NOTE | 2021-01-02 11:12 | CT_ITS ---
STUDY: CT ABDOMEN AND PELVIS WITH CONTRAST REASON FOR EXAM: Male, 65 years old. RLQ pain RADIATION DOSAGE (If Supplied By Facility): CTDIvol = ( 20.39 ) mGy, DLP = ( 1327.99 ) mGycm TECHNIQUE: Transaxial images were obtained from the dome of the diaphragm to the symphysis pubis without oral contrast. IV 100mL Isovue-300 was administered. Sagittal and coronal images were reconstructed. Individualized dose optimization techniques were used for this CT. COMPARISON: None. FINDINGS: Mild hypoventilatory changes are seen at both lung bases. The visualized portions of the heart are within normal limits. There is evidence of prior cardiothoracic surgery. Normal liver. There is non-visualization of the gallbladder, which may be secondary to either contraction or a prior cholecystectomy.. No biliary ductal dilatation. Normal spleen. Normal pancreas. Normal bilateral adrenal glands. Normal right kidney. Normal left kidney. Small bilateral renal cysts noted. The largest cyst is seen of the posterior lower pole of the left kidney measuring approximately 1.7 cm. No suspicious mass. Normal visualized stomach. Normal small intestine. Multiple diverticula are present. There is peridiverticular stranding in association with sigmoid colon in the right lower quadrant inferior to the cecum. This is consistent with acute diverticulitis. The appendix is visualized and appears normal. Atherosclerosis of the aorta and iliac arteries noted. No aneurysm. Normal inferior vena cava. Normal retroperitoneum. The urinary bladder is partially contracted. The prostate gland is mildly prominent with a transverse diameter of approximately 4.7 cm. Normal abdominal wall. Normal osseous structures. CT/Abdomen/Pelvis W IV Cont ONLY IMPRESSION: Acute sigmoid diverticulitis. This segment of sigmoid colon does reside in the right lower quadrant. The appendix is identified and normal. Electronically Signed: Silvia To MD at 13:06 EDT , Service support ,
[2021-01-02 11:35] LABS: Absolute Lymphocyte Count 2.07 X10^3/uL (0.83-4.51); Absolute Neutrophil Count 7.7 X10^3/uL (2.0-7.7); Basophil# 0.04 X10^3/uL; Basophil% 0.4 % (0-1); Eosinophil# 0.33 X10^3/uL; Hemoglobin 13.9 g/dL (13.0-16.5); Lymphocyte # 2.07 X10^3/ul (0.83-4.51); Lymphocyte % 18.5 % (19-41); Mean Corp Hgb Conc 32.3 g/dL (32-36); Mean Corpuscular Hgb 29.3 pg (27.0-32.0); Mean Corpuscular Volume 90.7 fL (80-94); Mean Platelet Vol. 10.1 fl (6.2-12.0); Monocyte# 0.98 X10^3/uL; Monocyte% 8.8 % (0-10); NRBC Flagged by Analyzer 0 % (0-5); Neutrophil # 7.68 X10^3/uL (2.7-7.7); Neutrophil % 68.8 % (47-70); Platelet Count 211 K/mm3 (150-450); RBC Distribution Width CV 14.1 % (11.6-14.6); RBC Distribution Width SD 47.5 fl (35.1-43.9); Red Blood Count 4.74 M/mm3 (4.6-6.2); White Blood Count 11.2 K/mm3 (4.4-11.0)
[2021-01-02] MEDS: Morphine 4 MG/ML Syringe IV (11:36)
[2021-01-02] MEDS: Ondansetron 4 MG/2 ML Vial IV (11:38)
[2021-01-02 11:48] LABS: International Normalized Ratio 2.4; Prothrombin Time (Protime)PT. 25.4 SECONDS (11.7-14.9)
[2021-01-02 11:50] LABS: ALB/GLOB Ratio 0.8 RATIO (0.9-2.4); AST(SGOT) 14 U/L (15-37); Alanine Aminotransfer ALT/SGPT 26 U/L (16-61); Albumin, Serum 3.5 g/dL (3.2-5.0); Alkaline Phosphatase 45 U/L (45-117); Anion Gap 7 (5-15); BUN 24 mg/dL (7-18); BUN/Creat Ratio 13.7 RATIO (10-20); Calcium,Total 9.4 mg/dL (8.5-10.1); Chloride 102 mmol/L (98-107); Creatinine, Serum 1.75 mg/dL (0.70-1.30); EST Glomerular Filtration Rate 42 mL/min (>60); Est Glom Filt Rate - Afr Amer 50 mL/min (>60); Estimated Creatinine Clearance 40.17 ml/min; Globulin 4.2 g/dL (2.2-4.2); Glucose 217 mg/dL (74-106); Potassium 3.7 mmol/L (3.5-5.1); Protein, Total 7.7 g/dL (6.4-8.2); Sodium Level 138 mmol/L (136-145)
[2021-01-02 12:09] LABS: Bacteria 0 SEEN /hpf (None Seen); Mucous, Urine 0 SEEN /hpf (<or=2+); Red Blood Cells-Urine 0 SEEN /hpf (0-5); White Blood Cells 0 SEEN /hpf (0-5)
[2021-01-02 12:23] LABS: Color, Urine Yellow (Yellow); Glucose, Dipstick Normal (Normal); Ketone-Dipstick Negative (Negative); Leukocyte Esterase-Dipstick Negative /ul (Negative); Nitrite-Dipstick Negative (Negative); Occult Blood-Urine Negative /ul (Negative); Protein-Dipstick 15 mg/dl (Negative); Urine Bilirubin Dipstick Negative (Negative); Urine Clarity Clear (Clear); Urine Urobilinogen Normal (Normal)
[2021-01-02 12:38] LABS: Squamous Epithelial Cells - UA 0-5 SEEN /hpf (0-5)
[2021-01-02 13:04] VITALS: BP 145/72; PULSE 88; RESP 14; O2SAT 98
[2021-01-02] MEDS: Ciprofloxacin 500 MG Tablet PO (14:07)
[2021-01-02] MEDS: metroNIDAZOLE 500 MG Tablet PO (14:07)
== END 2021-01-02 14:12 | disposition home or self-care (01) ==
PROVIDERS: Emergency Provider Student in an Organized Health Care Education/Training Program; PCP Family Medicine
DX: R10.31 Right lower quadrant pain (principal); K57.32 Diverticulitis of large intestine without perforation or abscess without bleeding; Z20.822 Contact with and (suspected) exposure to COVID-19; I12.9 Hypertensive chronic kidney disease with stage 1 through stage 4 chronic kidney disease, or unspecified chronic kidney disease; E11.22 Type 2 diabetes mellitus with diabetic chronic kidney disease; N18.9 Chronic kidney disease, unspecified; I48.0 Paroxysmal atrial fibrillation; I25.10 Atherosclerotic heart disease of native coronary artery without angina pectoris; E11.51 Type 2 diabetes mellitus with diabetic peripheral angiopathy without gangrene; E78.5 Hyperlipidemia, unspecified; K21.9 Gastro-esophageal reflux disease without esophagitis; E66.9 Obesity, unspecified; Z68.30 Body mass index [BMI] 30.0-30.9, adult; Z79.01 Long term (current) use of anticoagulants; Z79.02 Long term (current) use of antithrombotics/antiplatelets; Z79.4 Long term (current) use of insulin; Z79.82 Long term (current) use of aspirin; Z79.899 Other long term (current) drug therapy; I25.2 Old myocardial infarction; Z95.5 Presence of coronary angioplasty implant and graft; Z95.1 Presence of aortocoronary bypass graft
CPT/HCPCS: 74177; 80053; 81001; 85025; 85610; 87426; 96361; 96374; 96375; 99285; J7030; Q9967; A4216; J2405

== ENCOUNTER → 2021-01-05 13:12 | Outpatient (CLI) | payer MEDICARE, BC, SELFPAY ==
[2021-01-05 15:36] LABS: International Normalized Ratio 1.3; Prothrombin Time (Protime)PT. 15.8 SECONDS (11.7-14.9)
== END ==
PROVIDERS: PCP Family Medicine; Referring Provider Nurse Practitioner Family; Visit Provider Nurse Practitioner Family
DX: Z01.818 Encounter for other preprocedural examination (principal); Z79.01 Long term (current) use of anticoagulants
CPT/HCPCS: 36415; 85610

== ENCOUNTER 2021-04-11 10:23 | Outpatient (CLI) | payer MEDICARE, BC, SELFPAY ==
[2021-04-11 10:47] LABS: Erythrocyte Sedimentation Rate 11 mm/hr (0-20)
[2021-04-11 10:49] LABS: Absolute Lymphocyte Count 2.44 X10^3/uL (0.83-4.51); Absolute Neutrophil Count 7.2 X10^3/uL (2.0-7.7); Basophil# 0.06 X10^3/uL; Basophil% 0.5 % (0-1); Eosinophil# 0.27 X10^3/uL; Eosinophils% 2.5 % (0-5); Hematocrit 44.5 % (40-54); Lymphocyte # 2.44 X10^3/ul (0.83-4.51); Lymphocyte % 22.2 % (19-41); Mean Corp Hgb Conc 31.5 g/dL (32-36); Mean Corpuscular Hgb 28.7 pg (27.0-32.0); Mean Corpuscular Volume 91.4 fL (80-94); Mean Platelet Vol. 9.9 fl (6.2-12.0); Monocyte# 0.91 X10^3/uL; Monocyte% 8.3 % (0-10); NRBC Flagged by Analyzer 0 % (0-5); Neutrophil # 7.22 X10^3/uL (2.7-7.7); Neutrophil % 65.8 % (47-70); Platelet Count 248 K/mm3 (150-450); RBC Distribution Width CV 14.6 % (11.6-14.6); RBC Distribution Width SD 48.9 fl (35.1-43.9); Red Blood Count 4.87 M/mm3 (4.6-6.2)
== END 2021-04-11 23:59 | disposition short-term general hospital (02) ==
PROVIDERS: PCP Family Medicine; Referring Provider Surgery; Visit Provider Surgery
DX: R10.31 Right lower quadrant pain (principal)
CPT/HCPCS: 36415; 85025; 85652; 86140

== ENCOUNTER 2021-07-01 16:44 | Outpatient (CLI) | payer MEDICARE, BC, SELFPAY ==
--- NOTE | 2021-07-01 18:54 | CT_ITS ---
STUDY: CT Abdomen And Pelvis W/ Contrast Injection 07/01/2021 7:42 PM REASON FOR EXAM: Male, 65 years old. Abdominal pain LOWER ABD PAIN Individualized dose optimization techniques were used for this CT. COMPARISON: None. TECHNIQUE: CT Abdomen And Pelvis W/ Contrast Injection Oral and amp; IV Gastrografin and amp; 100mL Isovue-300 FINDINGS: There are atherosclerotic calcifications of visualized coronary arteries. The visualized portions of the heart are within normal limits. Multiple median sternotomy wires are noted consistent for cardiac surgery. There is hepatomegaly with diffuse hepatic enlargement. There is non-visualization of the gallbladder, which may be secondary to either contraction or a prior cholecystectomy. Normal spleen. Normal pancreas. Normal bilateral adrenal glands. No acute findings of the right kidney. No acute findings of the left kidney. Normal visualized stomach. Normal small intestine. There is diverticulosis, with thickening of the colon wall, and pericolonic inflammation changes consistent with acute diverticulitis. There is non-visualization of the appendix. There are calcifications of the abdominal aorta. This is consistent for atherosclerotic disease. There is no abdominal aortic aneurysm. Normal inferior vena cava. Subcentimeter mesenteric lymph nodes. Normal urinary bladder. There is enlargement of the prostate gland. Normal abdominal wall. Normal osseous structures. IMPRESSION: (NOT LISTED IN ORDER OF SIGNIFICANCE) Acute sigmoid diverticulitis. Enlarged liver. Other findings as above. Electronically Signed: Jay Gutierrez MD at 19:45 EDT , CT/Abdomen/Pelvis WITH Contrast
[2021-07-01 19:01] LABS: CREATININE FINGERSTICK 1.2 mg/dL (0.70-1.30); EGFR FINGERSTICK > 60.0000 mL/min (>60)
== END 2021-07-01 23:59 | disposition home or self-care (01) ==
LOC: CT 16:46
PROVIDERS: PCP Family Medicine; Referring Provider Family Medicine; Visit Provider Family Medicine
DX: R10.32 Left lower quadrant pain (principal)
CPT/HCPCS: 74177; Q9967

== ENCOUNTER → 2022-06-23 | Outpatient (CLI) | payer MEDICARE, BC, SELFPAY ==
--- NOTE | 2022-06-23 14:20 | RAD_ITS ---
EXAM: XR LEFT HIP WITH PELVIS WHEN PERFORMED, 2 OR 3 VIEWS CLINICAL INDICATION: PAIN TECHNIQUE: Two or three views of the left hip with pelvis when performed. This report was created using Realtime[employer] report generation technology. COMPARISON: None. FINDINGS: BONES/JOINTS: Unremarkable. No displaced fracture. No destructive or sclerotic lesions. Note that overlapping bowel shadows may however obscure fine detail. Sacroiliac joint is unremarkable. No widening of the pubic symphysis. The articular structures are unremarkable. SOFT TISSUES: Unremarkable. No soft tissue swelling or gas. RAD/HIP, UNI W/ Pelvis 2-3 Views IMPRESSION: No evidence of displaced pelvic or hip fracture. Electronically Signed: Russell Cody MD at 23:43 EDT ,
--- NOTE | 2022-06-23 14:20 | RAD_ITS ---
EXAM: XR LUMBOSACRAL SPINE COMPLETE WITH FLEXION/EXTENSION, 6 OR MORE VIEWS CLINICAL INDICATION: M51.37 TECHNIQUE: Lateral, frontal, oblique and lateral flexion/extension views of the lumbar spine and sacrum. This report was created using [employer] and [employer] report Surg[employer] technology. COMPARISON: None. FINDINGS: VERTEBRAE: Unremarkable. Preserved vertebral body height. No fracture. No spondylolisthesis. Preservation of the normal lumbar lordosis. No significant facet arthropathy. No instability. DISC SPACES: No acute findings. Disc spaces are maintained. GASTROINTESTINAL TRACT: Unremarkable as visualized. Included bowel gas pattern is non-obstructive. RAD/L/S Spine Comp/w Bending Views IMPRESSION: No evidence of lumbar spinal fracture or spondylolisthesis. No instability. Electronically Signed: Russell Cody MD at 23:44 EDT ,
== END | disposition home or self-care (01) ==
LOC: MTRAD 14:17
PROVIDERS: PCP Family Medicine; Referring Provider Anesthesiology Pain Medicine; Visit Provider Anesthesiology Pain Medicine
DX: M51.37 Other intervertebral disc degeneration, lumbosacral region (principal); M25.552 Pain in left hip; R10.30 Lower abdominal pain, unspecified
CPT/HCPCS: 72114; 73502

== ENCOUNTER → 2022-08-02 | Outpatient (CLI) | payer MEDICARE, BC, SELFPAY | END | disposition home or self-care (01) | PROVIDERS: PCP Family Medicine; Visit Provider Physician Assistant | DX: R19.7 Diarrhea, unspecified (principal); K58.9 Irritable bowel syndrome, unspecified; R10.13 Epigastric pain | CPT/HCPCS: 82274; 87177; 87209; 87493; 87506 ==

== ENCOUNTER → 2022-08-04 | Outpatient (CLI) | payer MEDICARE, BC, SELFPAY ==
[2022-08-04] VITALS (7 sets, daily range): BP systolic 175–225; BP diastolic 63–103; PULSE 69–74; RESP 16; O2SAT 95–99; BMI 35.5
--- NOTE | 2022-08-04 09:20 | CT_ITS ---
STUDY: CT ABDOMEN AND PELVIS WITH CONTRAST REASON FOR EXAM: Male, 66 years old. Bilateral lower abdominal pain. Diabetes. RADIATION DOSAGE (If Supplied By Facility): CTDIvol = ( 18.65 ) mGy, DLP = ( 1298.65 ) mGycm TECHNIQUE: Transaxial images were obtained from the dome of the diaphragm to the symphysis pubis with oral contrast. Oral and amp; IV Readi-CAT and amp; 100mL Isovue-300 was administered. Sagittal and coronal images were reconstructed. Individualized dose optimization techniques were used for this CT. COMPARISON: Comparison is made with prior study July 01, 2021. FINDINGS: Minimal degree of bibasilar linear atelectasis. Coronary artery calcification. There is decreased attenuation of the liver consistent with steatosis. The patient is status post cholecystectomy. Normal spleen. Normal pancreas. There is a small, circumscribed, smooth, low attenuation right adrenal mass, consistent with an adrenal adenoma. This measures 1 cm. Normal left adrenal gland. Normal right kidney. There is a 1.6 m cyst in the posterior aspect of the midportion of the left kidney. Normal visualized stomach. Normal small intestine. There are multiple colonic diverticula consistent with diverticulosis. Moderate amount of fecal material is seen in the colon more prominent the right hemicolon. Diverticula are seen in the right hemicolon. There is non-visualization of the appendix. There is diffuse atherosclerotic calcification of the abdominal aorta, without a demonstrated aneurysm. Normal inferior vena cava. Normal retroperitoneum. Normal urinary bladder. There is enlargement of the prostate gland. The prostate measures 5 cm x 5 cm. Normal abdominal wall. Normal osseous structures. CT/Abdomen/Pelvis WITH Contrast IMPRESSION: Diffuse fatty infiltration of the liver. Status post cholecystectomy. 1 cm adenoma in the right adrenal gland. Diverticulosis more prominent in the sigmoid colon and right hemicolon. Moderate amount of fecal material seen in the colon. Prostatic enlargement. Electronically Signed: Fransico Arzate MD at 12:41 EDT ,
[2022-08-04 10:21] LABS: CREATININE FINGERSTICK 1.5 mg/dL (0.70-1.30)
== END | disposition home or self-care (01) ==
LOC: CT 09:19
PROVIDERS: PCP Family Medicine; Referring Provider Physician Assistant; Visit Provider Physician Assistant
DX: R10.9 Unspecified abdominal pain (principal)
CPT/HCPCS: 74177; Q9967

== ENCOUNTER 2022-08-09 11:52 | Day surgery (SDC) | payer MEDICARE, BC, SELFPAY ==
[2022-08-09] VITALS (7 sets, daily range): BP systolic 99–120; BP diastolic 64–77; PULSE 79–89; RESP 16–17; TEMP 36.4–36.6; O2SAT 93–95; BMI 34.5
--- NOTE | 2022-08-09 | GASB_PTH ---
PATIENT: NOMAN STONE LOC: EN U#:[id number] AGE/SX: 66/M ROOM: RE08/09/[address]: Dr. Jakob Gomze MD : 1955 BED: DIS: 08/09/2022 SPEC #: [id number] RECD: 08/09/22 13:49 STATUS: JEANIE STANLEY #: [id number] SAM: 08/09/22 00:[address]: Jakob Gomez DEPT: SURGICAL PATHOLOGY RECD BY: Edwin Awad ENTERED: 08/10/22 11:48 SP TYPE: Gastric Bx OTHR DR: Dr. Uche Jaimes MD Tissues: A - Gastric mucous membrane B - Esophageal mucous membrane C - COLON BIOPSY Procedures: Special Stain Group II Surgery Specimen Level IV Alcian Blue/PAS (control) HEADER OPERATION: Colonoscopy, EGD ([facility] [place]) with biopsies PRE-OP DIAGNOSIS: Diarrhea, abdominal pain TISSUE SUBMITTED: A ? Antrum biopsy for H. pylori and path, B ? Distal esophagus biopsy, C ? Random colon biopsies MICROSCOPIC DIAGNOSIS A. Gastric antrum, biopsy: Chronic gastritis. See comment. B. Distal esophagus, biopsy: Gastroesophageal junctional mucosa with mild chronic inflammation. Focal changes of reflux. No evidence of goblet cell metaplasia. See comment. C. Colon, random biopsy: Focal acute colitis. See comment. AM:seamus 08/11/2022 COMMENT A. The results of immunohistochemistry for Helicobacter pylori will be reported separately ([id number]). B. Alcian blue/PAS stain with matched control supports the above diagnosis. C. Focal cryptitis and crypt abscesses are identified. There is no significant glandular distortion and no transmural lymphoid aggregates are seen. Clinical correlation is suggested. MICROSCOPIC DESCRIPTION Slides are reviewed. GROSS DESCRIPTION A - Received in fixative is one container labeled with the patient's name and designated antrum biopsy. The specimen consists of one irregular fragment of light alicea soft tissue that measures 0.3 x 0.3 x 0.1 cm. The specimen is totally submitted in one cassette. B - Received in fixative is one container labeled with the patient's name and designated distal esophagus biopsy. The specimen consists of multiple irregular fragments of light alicea soft tissue that in aggregate measure 1.0 x 0.3 x 0.1 cm. The specimen is totally submitted in one cassette. C - Received in fixative is one container labeled with the patient's name and designated random colon biopsy. The specimen consists of multiple irregular fragments of light alicea soft tissue that in aggregate measure 1.5 x 0.5 x 0.1 cm. The specimen is totally submitted in one cassette. / SJ:seamus 08/10/2022 TC:2 CPT: 65582 x3, 62531
[2022-08-09 12:25] LABS: INR Fingerstick 2.2; Prothrombin Time Fingerstick 23.9 SEC (11.7-14.9)
[2022-08-09] MEDS: Lactated Ringers 1,000 ML 15 ML IV (12:33)
[2022-08-09 12:36] LABS: Bedside Glucose 141 mg/dL (74-106)
--- NOTE | 2022-08-09 12:46 | HP.PCM_ITS ---
History and Physical Date of Admission: 08/09/22 Visit Reasons:?SIGNIFICANT WEIGHT LOSS Chief Complaint: weight loss Buffer Chrome Required: No Is patient in pain?: No Allergies adhesive Allergy (Verified 08/02/22 13:54) Unknownlisinopril Allergy (Verified 08/02/22 13:54) UnknownPenicillins Allergy (Verified 08/02/22 13:54) Unknown Medications clopidogrel 75 mg tablet 75 mg PO DAILY antiplatelet 02/07/13 [History Confirmed 08/02/22] atorvastatin 80 mg tablet 80 mg PO QHS cholesterol 07/05/15 [History Confirmed 08/02/22] carvedilol 25 mg tablet 12.5 mg PO BID BP/HR 02/01/18 [History Confirmed 08/02/22] aspirin 81 mg tablet,delayed release 81 mg PO DAILY@0800 02/27/18 [Rx Confirmed 08/02/22] furosemide 20 mg tablet (Lasix) 40 mg PO DAILY 08/22/18 [History Confirmed 08/02/22] nitroglycerin 0.4 mg sublingual tablet 0.4 mg sublingual Q5M PRN Chest Pain #25 tabs 02/24/19 [Rx Confirmed 08/02/22] mecobalamin (vitamin B12) 5,000 mcg disintegrating tablet 5,000 mcg PO QWEEK 10/27/19 [History Confirmed 05/18/22] cholecalciferol (vitamin D3) 25 mcg (1,000 unit) capsule 5,000 unit PO DAILY supplement 04/07/20 [History Confirmed 08/02/22] cyclobenzaprine 10 mg tablet 10 mg PO DAILY PRN muscle spasms 04/07/20 [History Confirmed 08/02/22] docusate sodium 100 mg tablet 100 mg PO DAILY 04/07/20 [History Confirmed 08/02/22] warfarin 2.5 mg tablet 2.5 mg PO MOTUWEFRSA Blood thinner 04/22/20 [History Confirmed 08/02/22] fenofibric acid (choline) 135 mg capsule,delayed release 135 mg PO DAILY 10/21/20 [History Confirmed 08/02/22] warfarin 2.5 mg tablet 5 mg PO SUTH 12/13/20 [History Confirmed 08/02/22] famotidine 20 mg tablet 20 mg PO BID #180 tabs 01/20/21 [Rx Confirmed 08/02/22] losartan 50 mg-hydrochlorothiazide 12.5 mg tablet 1 tab PO DAILY 04/11/21 [History Confirmed 08/02/22] pen needle, diabetic 32 gauge x 5/32 (BD Ultra-Fine Poonam Pen Needle) #100 ea 05/06/21 [Rx Confirmed 08/02/22] hydrocodone-acetaminophen 5-325mg 5mg-325mg 1 tab PO Q12H PRN 05/19/21 [History Confirmed 08/02/22] FreeStyle Charity 2 Sells (flash glucose scanning reader) #1 ea 11/01/21 [Rx Confirmed 08/02/22] amlodipine 2.5 mg tablet 2.5 mg PO .COMPLEX #30 tabs 11/02/21 [Rx Confirmed 08/02/22] magnesium oxide 500 mg capsule 500 mg PO BID supplement 11/02/21 [History Confirmed 08/02/22] isosorbide mononitrate 120 mg tablet,extended release 24 hr 120 mg PO BID #180 tabs 12/26/21 [Rx Confirmed 08/02/22] finasteride 5 mg tablet 5 mg PO DAILY 05/18/22 [History Confirmed 08/02/22] insulin glargine 100 unit/mL subcutaneous solution (Lantus U-100 Insulin) 50 unit subcut QPM 05/18/22 [History Confirmed 08/02/22] mecobalamin (vitamin B12) 1,000 mcg chewable tablet 1,000 mcg PO QWEEK 05/18/22 [History Confirmed 08/02/22] Humalog KwikPen Insulin 200 unit/mL (3 mL) subcutaneous (insulin lispro) 30 unit (0.15 mL) subcut TID #90 mL 07/06/22 [Rx Confirmed 08/02/22] FreeStyle Charity 2 Sensor (flash glucose sensor) #2 ea 07/10/22 [Rx Confirmed 08/02/22] dulaglutide 4.5 mg/0.5 mL subcutaneous pen injector (Trulicity) 4.5 mg (0.5 mL) subcut QWEEK #2 mL 07/17/22 [Rx Confirmed 08/02/22] acetylcysteine 600 mg capsule 600 mg PO BID #6 caps 08/02/22 [Rx Confirmed 08/02/22] PFSH Medical History? Acute renal failure Atherosclerotic heart disease of [place] coronary artery without angina pectoris Bilateral carotid artery stenosis Bradycardia CAD (coronary artery disease) Chest pain, unspecified Cholelithiasis with chronic cholecystitis Diabetes Epigastric pain Essential hypertension GERD (gastroesophageal reflux disease) HLD (hyperlipidemia) Hypertension Microalbuminuria NSTEMI (non-ST elevated myocardial infarction) Obesity (BMI 30-39.9) PAD (peripheral artery disease) Paroxysmal atrial fibrillation Raynauds disease Renal insufficiency Screening for malignant neoplasm of intestine Type 2 diabetes mellitus Surgical History? H/O coronary artery bypass surgery (09/21/17) History of angioplasty of peripheral vessel History of inguinal hernia repair Hx of cholecystectomy Postsurgical percutaneous transluminal coronary angioplasty (PTCA) status Presence of stent in coronary artery (~04/20/15) Family History? Father Heart diseaseGrandmother HypertensionGrandfather Heart disease Myocardial infarction Social History? Smoking Status:? Never smoker alcohol intake:? current HPI HPI HPI: Patient is a 66 y/o M I am seeing for abdominal pain and rectal bleeding. Patient states last Sunday is when his symptoms started. He noted feeling tired, having diarrhea, weakness and the wanting to sleep all day. Sunday, patient did not have an appetite. Eating made his symptoms worse. He also started with gas pains and abdominal cramping. Sunday, the patient noticed bright red blood in his stool from the continued diarrhea. Patient noted at this point his stools were soft and liquidy. He also noted urgency with bowel movements. He noted having bowel movements would relieve his abdominal pain. Patient notes his symptoms continued throughout the rest of last week. Patient also noted he had lost approximately 13 pounds since his symptoms started. He went to see his PCP at [facility]. He had a CBC on 07/31 which demonstrated a WBC of 10.09. Patient was placed on Omincef and Flagyl with a suspicion of diverticulitis as a possible diagnosis. Patient was also noted to have blood in his stool during the office Fecal occult blood test. Patient was referred to general surgery for scopes. Patient notes his most recent colonoscopy was in [address] Cebul, which demonstrated extensive sigmoid and descending diverticular disease and a lipoma at the ileocecal valve. Upper scope demonstrated small hiatal hernia and acute and chronic gastritis. Patient is on famotidine. Patient has had at least 2 episodes of sigmoid diverticulitis in the past, 2020 and 2021, which were both confirmed with a CT scan. Patient notes since starting the antibiotics his pain has improved. he continues to have urgency and loose stools. He notes the nausea is improved and he denies any vomiting. Patient has an extensive cardiac history for which he is currently on Coumadin, Plavix and ASA. Patient also has a history of chronic renal failure stage 3. Patient notes he has a sensitivity to any contrast dye in regards to his renal function. ROS General General: Yes weight change and fatigue; No appetite, colon cancer, breast cancer or weakness Additional Details: weight loss HEENT HEENT: Yes eye injury and eye surgery; No difficulty swallowing, swollen glands or hoarseness Endo Endocrine: Yes diabetes mellitus; No thyroid disease, thyroid cancer, Hair loss, heat intolerance or cold intolerance Skin Skin: No rash or changing moles Breast Breast: No left breast lump, right breast lump, nipple discharge, breast pain, abnormal mammogram, abnormal US or breast enlargement Musc Musculoskeletal: Yes back problems and arthritis; No rheumatoid arthritis, gout or joint pain Cardio Cardiovascular: Yes heart disease, atrial fibrillation, high blood pressure, heart attack and heart stent; No murmur, pacemaker, palpitations, shortness of breat with exertion or chest pain Psych Psychiatric: No depression, anxiety or hearing voices Resp Respiratory: Yes shortness of breath, Yes sleep apnea, No cough, No COPD, No asthma, No emphysema and No wheezing Gastro Gastrointestinal: Yes abdominal pain, Yes nausea or vomiting, Yes diarrhea, No constipation, Yes blood in stool, Yes acid reflux, Yes hemorrhoids, No ulcers, No gallbladder problem and No black,tarry stools Harris Hematologic: Yes blood thinners, No blood disorders, No bleeding, No anemia and No blood clots Neuro Neurologic: No system reviewed and no additional complaints, except as documented, No as per HPI, No abnormal gait, No abnormal hearing, No abnormal movements, No abnormal speech, No behavioral changes, No burning sensations, No confusion, No convulsions, No disequilibrium, No dizziness, No localized weakness, No frequent falls, No headache(s), No lack of coordination, No loss of vision, No memory loss, Yes numbness, No other visual disturbances, No radicular pain, No restless legs, No sensory deficit, No syncope, Yes tingling, No tremor(s), No weakness and No other Exam Const General: cooperative, healthy appearing, comfortable and no acute distress [facility] Head: normal to inspection Eyes General: appearance normal, both eyes and all related structures Neck Neck: normal visual inspection Neck mass: No Resp Effort & Inspection: normal respiratory effort Auscultation: clear to auscultation bilaterally Cardio Rate: regular rate Rhythm: regular rhythm GI Inspection: normal to inspection and large pannus Palpation: soft and tender (Generalized tenderness; pain in the left lower quadrant) Auscultation: high-pitched sounds and hyperactive bowel sounds Musc Cervical Spine: normal cervical lordosis Skin General: no rashes or lesions noted Neuro General: no focal motor deficits and CN's II-XI intact bilaterally Extrem General: normal to inspection Psych Appearance: grossly normal Affect: normal affect Assessment and Plan Assessment and Plan (1) Diarrhea: ?Status:?Acute ?Plan: Dr. Gomez also evaluated this patient. Patient is demonstrating abdominal pain and cramping that comes in waves. Patient notes the pain is worse on the left lower quadrant. Patient notes a history of diverticulitis. Patient also has arthrosclerosis of the arteries. He was placed on antibiotics for possible diverticulitis. Patient notes he continues to have diarrhea. He notes these symptoms are different then the previous diverticulitis episode. We are recommending stool cultures for CDiff, enteric pathogens, occult blood, and ova and parasites. We are also recommending the patient have a CT scan of the abdomen/pelvis with contrast to rule out acute diverticulitis versus ischemic bowel versus colitis versus gastrointestinal virus. Patient has renal insufficiency/ chronic renal failure stage 3 for which he had to take Mucomyst in the past when consumption of contrast occurred. A prescription will be sent to patient's pharmacy for acetylcysteine 600 mg BID to be taken the day prior, day of and day after the CT scan. Patient will also receive a 500 cc bolus of IV saline to assist with protecting patient's renal function. If the stool studies and CT scan of the ab/pel reveal normal findings, Dr. Gomez would like to perform an upper and lower scope with possible biopsies. Patient is on Coumadin, Plavix and ASA. Patient may continue Plavix and ASA for the procedure. He will need to hold his Coumadin. Patient is currently holding his Coumadin due to his INR being 3.2. Patient's INR will need to be 2.0 or below for the procedure. Our office will contact the patient with further instructions in regards to holding his Coumadin once we receive the above results. Patent and his have had the opportunity to ask and have questions answered. Patient verbally understands and agrees with the plan. (2) Abdominal pain: ?Status:?Acute ?Qualifiers: ?Abdominal location:?right lower quadrant? Qualified Code(s):?R10.31 - Right lower quadrant pain ? ? ? Orders: Orders CDIFF (PCR) 08/02/22 R19.7 - Diarrhea, unspecified ? Ova and Parasites 8623 08/02/22 K58.9 - Irritable bowel syndrom e without diarrhea ? ENTERIC PATHOGEN PANEL STOOL 08/02/22 K58.9 - Irritable bowel syndrom e without diarrhea, R10.13 - Epigastric pain ? Stool Occult Blood iFOB 08/02/22 R19.7 - Diarrhea, unspecified ? Abdomen/Pelvis WITH Contrast 08/02/22 R10.9 - Unspecified abdominal p ain ? Medications: New acetylcysteine ?? Take 2 tablets the day prior, day of and day after the imaging 600 mg? PO BID 6 caps 0RF ? ? Coding Level of Care Code Off vis,est,level 4 Diagnoses Diarrhea? R19.7 Abdominal pain? R10.31 ? ? ? Abdominal location: right lower quadrant 08/03/22 1007 <Electronically signed by Ivy MARIE PA-C> Date Ivy MARIE PA-C I have examined the patient and the H&P has been reviewed. There are no clinical changes since date of exam. Jakob Gomez M.D., F.A.C.S. CT of the abdomen pelvis performed on August 04, 2022 showed fatty change of the liver. Postcholecystectomy. 1 cm adenoma of the right adrenal. Diverticular disease of the sigmoid and right colon. Prostate enlargement. No acute pathology. Stool analysis showed that the patient was Hemoccult positive. C. difficile was negative. No enteric bacteria. Jakob Gomez M.D., F.A.C.S.
[2022-08-09 12:50] LABS: Prothrombin Time (Protime)PT. 22.5 SECONDS (11.7-14.9)
--- NOTE | 2022-08-09 13:00 | IMM_PTH ---
PATIENT: NOMAN STONE LOC: EN U#:[id number] AGE/SX: 66/M ROOM: RE08/09/[address]: Dr. Jakob Gomez MD : 1955 BED: DIS: 08/09/2022 SPEC #: [id number] RECD: 08/10/22 14:34 STATUS: JEANIE REQ #: [id number] SAM: 08/09/22 13:[address]: Jakob Gomez DEPT: IMMUNOHISTOCHEMISTRY RECD BY: Zayra Bowman ENTERED: 08/10/22 14:34 SP TYPE: IMMUNO OTHR DR: Dr. Uche Jaimes MD Tissues: A - Stomach, NOS Procedures: H Pylori (initial) PHYSICIAN & INSTITUTION [place] [id number] SPECIMEN INFORMATION: Tissue Source: A ? Antrum biopsy Clinical Info: Diarrhea, abdominal pain Specimen Number: [id number] CPT code: 46798 METHODOLOGY: Deparaffinized sections of prefer/formalin-fixed tissue or PAP/DQ stained slides are incubated with monoclonal/polyclonal antibodies/oligonucleotide probes. Localization is made via biotin free immunoperoxidase method. Appropriate controls are performed and reacted as expected. Results on target cell population are indicated in the following table: RESULTS: ANTIBODY / CLONE RESULT Block A H Pylori (polyclonal) negative These tests were developed and their performance characteristics determined by [facility]. They may not have been cleared or approved by the U.S. Food and Drug Administration. The FDA has determined that such clearance or approval is not necessary. The above immunohistochemical/dualISH markers are ordered and reviewed by the Pathologist. INTERPRETATION: A. Antrum, biopsy: Negative for Helicobacter pylori organisms. AM:seamus 08/11/2022
--- NOTE | 2022-08-09 13:41 | OP.EGD_ITS ---
Patient Name: Timothy Ahumada Procedure Date: 08/09/2022 12:56 PM Date of : 1955 Age: 66 Procedure: Upper GI endoscopy Indications: Generalized abdominal pain Providers: Jakob Gomez MD Referring MD: Jakob Gomez MD Medicines: See the Anesthesia note for documentation of the administered medications Complications: No immediate complications. Procedure: Pre-Anesthesia Assessment: - Prior to the procedure, a History and Physical was performed, and patient medications and allergies were reviewed. The patient's tolerance of previous anesthesia was also reviewed. The risks and benefits of the procedure and the sedation options and risks were discussed with the patient. All questions were answered, and informed consent was obtained. Prior Anticoagulants: The patient has taken Plavix (clopidogrel), last dose was day of procedure. ASA Grade Assessment: III - A patient with severe systemic disease. After reviewing the risks and benefits, the patient was deemed in satisfactory condition to undergo the procedure. After obtaining informed consent, the endoscope was passed under direct vision. Throughout the procedure, the patient's blood pressure, pulse, and oxygen saturations were monitored continuously. The gastroscope was introduced through the mouth, and advanced to the second part of duodenum. The upper GI endoscopy was accomplished without difficulty. The patient tolerated the procedure well. Scope In: 1:07:32 PM Scope Out: 1:12:49 PM Total Procedure Duration Time 0 hours 5 minutes 17 seconds Findings: The Z-line was variable and was found 41 cm from the incisors. Biopsies were taken with a cold forceps for histology. A very small hiatal hernia was present. Diffuse mildly erythematous mucosa without bleeding was found in the gastric antrum. Biopsies were taken with a cold forceps for histology. The examined duodenum was normal. Biopsies were taken with a cold forceps for histology. Impression: - Z-line variable, 41 cm from the incisors. Biopsied. - Very Small hiatal hernia. - Erythematous mucosa in the antrum. Biopsied. - Normal examined duodenum. Biopsied. Recommendation: - Discharge patient to home. - Resume previous diet. - Continue present medications. - Await pathology results. - Telephone my office for pathology results in 1 week. Mild gastritis. No clinically significant overt findings. The patient is on clopidogrel and aspirin and warfarin. I will await final pathology. I will not initiate any proton pump interventions at this time. He might be a future candidate for famotidine. Procedure Code(s): --- Professional --- 75594, Esophagogastroduodenoscopy, flexible, transoral; with biopsy, single or multiple Diagnosis Code(s): --- Professional --- K22.8, Other specified diseases of esophagus K44.9, Diaphragmatic hernia without obstruction or gangrene K31.89, Other diseases of stomach and duodenum R10.84, Generalized abdominal pain CPT copyright 2017 [employer]. All rights reserved. The codes documented in this report are preliminary and upon expeditionary fighting vehicle crewman review may be revised to meet current compliance requirements. Jakob Gomez MD 08/09/2022 1:40:37 PM This report has been signed electronically. Number of Addenda: 0 Note Initiated On: 08/09/2022 12:56 PM
--- NOTE | 2022-08-09 13:42 | OP.CCLET_ITS ---
08/09/2022 Uche Jaimes MD Re : Upper GI endoscopy procedure for Timothy Ahumada Dear Dr. Jaimes This procedure was performed on Tuesday, August 09, 2022. My impressions and recommendations are as follows: Impressions : - Z-line variable, 41 cm from the incisors. Biopsied. - Very Small hiatal hernia. - Erythematous mucosa in the antrum. Biopsied. - Normal examined duodenum. Biopsied. Recommendations : - Discharge patient to home. - Resume previous diet. - Continue present medications. - Await pathology results. - Telephone my office for pathology results in 1 week. Mild gastritis. No clinically significant overt findings. The patient is on clopidogrel and aspirin and warfarin. I will await final pathology. I will not initiate any proton pump interventions at this time. He might be a future candidate for famotidine. My findings are described in the full procedure note, which is enclosed. If I can be of further assistance, please feel free to contact me at Doctor phone number(s): Work: . Sincerely, Jakob Gomez MD 08/09/2022 1:40:37 PM This report has been signed electronically.
--- NOTE | 2022-08-09 13:47 | OP.COLON_ITS ---
Patient Name: Timothy Ahumada Procedure Date: 08/09/2022 1:14 PM Date of : 1955 Age: 66 Procedure: Colonoscopy Indications: Clinically significant diarrhea of unexplained origin Providers: Jakob Gomez MD Referring MD: Jakob Gomez MD Medicines: See the Anesthesia note for documentation of the administered medications Patient Profile: Last Colonoscopy: within the past 3 years. Complications: No immediate complications. Procedure: Pre-Anesthesia Assessment: - Prior to the procedure, a History and Physical was performed, and patient medications and allergies were reviewed. The patient's tolerance of previous anesthesia was also reviewed. The risks and benefits of the procedure and the sedation options and risks were discussed with the patient. All questions were answered, and informed consent was obtained. Prior Anticoagulants: The patient has taken Plavix (clopidogrel), last dose was day of procedure. ASA Grade Assessment: III - A patient with severe systemic disease. After reviewing the risks and benefits, the patient was deemed in satisfactory condition to undergo the procedure. After I obtained informed consent, the scope was passed under direct vision. Throughout the procedure, the patient's blood pressure, pulse, and oxygen saturations were monitored continuously. The adult colonoscope was introduced through the anus and advanced to the cecum, identified by appendiceal orifice and ileocecal valve. The colonoscopy was performed without difficulty. The patient tolerated the procedure well. The quality of the bowel preparation was good. The ileocecal valve was photographed. Scope In: 1:16:27 PM Scope Withdrawal Time 0 hours 11 minutes 11 seconds Scope Out: 1:33:51 PM Total Procedure Duration Time 0 hours 17 minutes 24 seconds Findings: The digital rectal exam findings include non-thrombosed external hemorrhoids, non-thrombosed internal hemorrhoids and internal hemorrhoids that prolapse with straining, but spontaneously regress to the resting position (Grade II). Pertinent negatives include normal prostate (size, shape, and consistency). The ileocecal valve was mildly lipomatous. Multiple diverticula were found in the sigmoid colon and descending colon. Biopsies for histology were taken with a cold forceps from the entire colon for evaluation of microscopic colitis. Impression: - Non-thrombosed external hemorrhoids, non-thrombosed internal hemorrhoids and internal hemorrhoids that prolapse with straining, but spontaneously regress to the resting position (Grade II) found on digital rectal exam. - Lipomatous ileocecal valve. - Diverticulosis in the sigmoid colon and in the descending colon. - Biopsies were taken with a cold forceps from the entire colon for evaluation of microscopic colitis. Recommendation: - Discharge patient to home. - Resume previous diet. - Continue present medications. - Repeat colonoscopy in 10 years for screening purposes. - Telephone my office for pathology results in 1 week. No acute findings. May be some slight mucosal swelling of the sigmoid colon but mild at best. Random colonic biopsies pending. No additional treatment at this time. Procedure Code(s): --- Professional --- 95338, Colonoscopy, flexible; with biopsy, single or multiple Diagnosis Code(s): --- Professional --- K64.1, Second degree hemorrhoids K64.4, Residual hemorrhoidal skin tags K63.89, Other specified diseases of intestine R19.7, Diarrhea, unspecified K57.30, Diverticulosis of large intestine without perforation or abscess without bleeding CPT copyright 2017 [employer]. All rights reserved. The codes documented in this report are preliminary and upon entrepreneurial finance professor review may be revised to meet current compliance requirements. Jakob Gomez MD 08/09/2022 1:47:12 PM This report has been signed electronically. Number of Addenda: 0 Note Initiated On: 08/09/2022 1:14 PM
--- NOTE | 2022-08-09 13:48 | OP.CCLET_ITS ---
08/09/2022 Uche Jaimes MD Re : Colonoscopy procedure for Timothy Ahumada Dear Dr. Jaimes This procedure was performed on Tuesday, August 09, 2022. My impressions and recommendations are as follows: Impressions : - Non-thrombosed external hemorrhoids, non-thrombosed internal hemorrhoids and internal hemorrhoids that prolapse with straining, but spontaneously regress to the resting position (Grade II) found on digital rectal exam. - Lipomatous ileocecal valve. - Diverticulosis in the sigmoid colon and in the descending colon. - Biopsies were taken with a cold forceps from the entire colon for evaluation of microscopic colitis. Recommendations : - Discharge patient to home. - Resume previous diet. - Continue present medications. - Repeat colonoscopy in 10 years for screening purposes. - Telephone my office for pathology results in 1 week. No acute findings. May be some slight mucosal swelling of the sigmoid colon but mild at best. Random colonic biopsies pending. No additional treatment at this time. My findings are described in the full procedure note, which is enclosed. If I can be of further assistance, please feel free to contact me at Doctor phone number(s): Work: . Sincerely, Jakob Gomez MD 08/09/2022 1:47:12 PM This report has been signed electronically.
== END 2022-08-09 14:20 | disposition home or self-care (01) ==
LOC: EN 11:53 → AC 11:54
PROVIDERS: Anesthesiology; PCP Family Medicine; Referring Provider Surgery; Visit Provider Surgery
PROC: 0DJD8ZZ Inspection of Lower Intestinal Tract, Via Natural or Artificial Opening Endoscopic (ICD-10-PCS; CPT 45378; principal; 2022-08-09 12:55)
DX: K52.9 Noninfective gastroenteritis and colitis, unspecified (principal); E11.22 Type 2 diabetes mellitus with diabetic chronic kidney disease; I48.0 Paroxysmal atrial fibrillation; Z79.4 Long term (current) use of insulin; N18.30 Chronic kidney disease, stage 3 unspecified; K21.00 Gastro-esophageal reflux disease with esophagitis, without bleeding; K29.50 Unspecified chronic gastritis without bleeding; K31.89 Other diseases of stomach and duodenum; K63.89 Other specified diseases of intestine; K44.9 Diaphragmatic hernia without obstruction or gangrene; K64.4 Residual hemorrhoidal skin tags; K64.1 Second degree hemorrhoids; K57.30 Diverticulosis of large intestine without perforation or abscess without bleeding; K76.0 Fatty (change of) liver, not elsewhere classified; I25.10 Atherosclerotic heart disease of native coronary artery without angina pectoris; I25.2 Old myocardial infarction; K63.4 Enteroptosis; I10 Essential (primary) hypertension; Z95.1 Presence of aortocoronary bypass graft; Z95.5 Presence of coronary angioplasty implant and graft; Z79.899 Other long term (current) drug therapy; Z79.82 Long term (current) use of aspirin; Z79.01 Long term (current) use of anticoagulants
CPT/HCPCS: 45380; 43239; 36416; 82962; 85610; 88305; 88313; 88342; J7120; J2405

== ENCOUNTER → 2022-08-25 | Outpatient (CLI) | payer MEDICARE, BC, SELFPAY ==
[2022-08-25 11:03] LABS: Erythrocyte Sedimentation Rate 29 mm/hr (0-20)
[2022-08-25 11:32] LABS: CRP < 2.90 mg/L (0.0-3.0); LDH 141 U/L (87-241)
[2022-08-25 11:41] LABS: Homocysteine 13.9 umol/L (3.2-10.7)
[2022-08-28 15:07] LABS: Endomysial Antibody IgA Negative (Negative); Immunoglobulin A 490 mg/dL (61-437); t-Transglutaminase IgA <2 U/mL (0-3)
[2022-08-28 17:07] LABS: Anti-Centromere B Ab <0.2 AI (0.0-0.9); Anti-Chromatin <0.2 AI (0.0-0.9); Anti-Jo <0.2 AI (0.0-0.9); Anti-Scleroderma-70 AB <0.2 AI (0.0-0.9); Anti-dsDNA Ab <1 IU/mL (0-9); RNP Ab <0.2 AI (0.0-0.9); SJOGREN'S Anti-SS-A test < 0.2 AI (0.0-0.9); SJOGREN'S Anti-SS-B test < 0.2 AI (0.0-0.9); Smith Ab <0.2 AI (0.0-0.9)
[2022-08-30 15:08] LABS: Albumin 3.8 g/dL (2.9-4.4); Alpha-1-Globulins 0.2 g/dL (0.0-0.4); Alpha-2-Globulins 0.8 g/dL (0.4-1.0); Angiotensin Convert Enzyme 43 U/L (14-82); Cytoplasmic Ab (C-ANCA) <1:20 titer (Neg:<1:20); Gamma Globulin 1.2 g/dL (0.4-1.8); Immunoglobulin A 469 mg/dL (61-437); Immunoglobulin E 7 IU/mL (6-495); Immunoglobulin G 1110 mg/dL (603-1613); Immunoglobulin M 105 mg/dL (20-172); PROEL- TOTAL PROTEIN 7.3 g/dL (6.0-8.5); Perinuclear Ab (P-ANCA) <1:20 titer (Neg:<1:20)
[2022-08-31 14:09] LABS: Pancreatic Elastase, Fecal 77 (>200)
[2022-09-04 15:08] LABS: Calprotectin, Stool 115 ug/g (0-120); Fats, Neutral Normal (.); Fats, Total Increased (.)
== END | disposition home or self-care (01) ==
PROVIDERS: PCP Family Medicine; Referring Provider Internal Medicine Gastroenterology; Visit Provider Internal Medicine Gastroenterology
DX: K57.92 Diverticulitis of intestine, part unspecified, without perforation or abscess without bleeding (principal); R10.31 Right lower quadrant pain; R07.9 Chest pain, unspecified; R19.7 Diarrhea, unspecified; I25.10 Atherosclerotic heart disease of native coronary artery without angina pectoris; K58.9 Irritable bowel syndrome, unspecified
CPT/HCPCS: 36415; 82164; 82274; 82653; 82705; 82784; 82785; 83090; 83516; 83615; 83630; 83993; 84165; 85652; 86140; 86225; 86235; 86255; 86256; 86334; 87177; 87209; 87329; 87493; 87506

== ENCOUNTER → 2022-12-07 | Outpatient (CLI) | payer MEDICARE, BC, SELFPAY ==
--- NOTE | 2022-12-07 18:37 | STRESSREP ---
Stress Test Report Pharmacologic myocardial perfusion stress test. 67-year-old man with a history of coronary artery disease status post coronary bypass surgery Resting EKG demonstrates sinus rhythm with a rate of 71 bpm. Resting blood pressure is 152/90 mmHg. 0.4 mg of regadenoson was infused per usual protocol followed by rapid intravenous saline flush injection. Continuous EKG monitoring was performed. The maximum heart rate was 95 bpm which was 62% of max impacted heart rate the maximum workload was 1 metabolic equivalent. At rest there were no ST or T wave changes noted to suggest ischemia and at peak infusion nonspecific ST changes were noted which did not meet the criteria for ischemia. The patient did also experience chest discomfort rated a 7 out of 10 radiation to his teeth requiring sublingual nitroglycerin for relief. The final blood pressure was 140/80 mmHg. Myocardial perfusion protocol. 14.6 mCi of technetium 99m sestamibi was injected at rest. 0.4 mg of regadenoson was infused per usual protocol. At peak infusion 45.0 mCi of technetium 99m sestamibi was injected stress images were obtained stress and rest images were reconstructed and compared in the short axis vertical long and horizontal long axis. Gated images were also obtained. Perfusion SPECT analysis: Review of the stress images demonstrate normal uptake of tracer noted in all areas of the myocardium except for a portion of the mid anterior wall with reduced perfusion. The resting images similar demonstrated normal uptake of tracer noted in all areas of the myocardium. Mild amount of anterior ischemia is noted Gated SPECT analysis: The gated ejection fraction is 39%. Conclusion: Abnormal pharmacologic myocardial perfusion stress test. Mid anterior ischemia is noted Reduced ejection fraction.
== END | disposition home or self-care (01) ==
LOC: CVS 06:10
PROVIDERS: PCP Family Medicine; Referring Provider Physician Assistant Medical; Visit Provider Physician Assistant Medical
DX: R07.9 Chest pain, unspecified (principal)
CPT/HCPCS: 78452; 93005; 93017; A9500; A4216; J2785

== ENCOUNTER → 2022-12-15 | Outpatient (CLI) | payer MEDICARE, BC, SELFPAY ==
--- NOTE | 2022-12-15 16:30 | RAD_ITS ---
STUDY: X-RAY CHEST REASON FOR EXAM: Male, 67 years old. Abnormal stress, Heart cath TECHNIQUE: Single frontal view of the chest. COMPARISON: February 24, 2018 FINDINGS: Sternotomy wires. Possible retrocardiac infiltrate. There is no demonstrated pleural abnormality. Normal size heart. Normal mediastinum and stefanie. Normal visualized pulmonary arteries. Normal visualized aortic arch and descending thoracic aorta. Normal visualized thoracic spine. Normal visualized ribs, clavicles, and shoulders. There is no demonstrated abnormality of the visualized soft tissue structures of the upper abdomen. RAD/Chest PA and Lateral IMPRESSION: Possible retrocardiac infiltrate. Electronically Signed: Rufino Mcgraw MD at 23:57 EDT ,
== END | disposition home or self-care (01) ==
LOC: MTRAD 16:28
PROVIDERS: PCP Family Medicine; Referring Provider Internal Medicine Cardiovascular Disease; Visit Provider Internal Medicine Cardiovascular Disease
DX: R07.9 Chest pain, unspecified (principal); I25.10 Atherosclerotic heart disease of native coronary artery without angina pectoris; Z95.1 Presence of aortocoronary bypass graft; Z95.5 Presence of coronary angioplasty implant and graft; I10 Essential (primary) hypertension; R94.39 Abnormal result of other cardiovascular function study
CPT/HCPCS: 71046

== ENCOUNTER 2022-12-21 06:23 | Day surgery (SDC) | payer MEDICARE, BC, SELFPAY ==
--- NOTE | 2022-12-13 21:31 | PCM.HP.BLA ---
History and Physical Date of Admission: 12/21/22 Timothy Ahumada is a 67-year-old white male who presents today for heart catheterization. He has a history of underlying CAD, PCI, CABG (CCF on with a MANCERA to the LAD, SVG to the intermediate ramus, SVG sequential graft to the PDA and the posterior lateral ventricular branch, SVG to the OM), pulmonary vein isolation and left atrial appendage excision procedure, paroxysmal atrial fibrillation, hyperlipidemia, hypertension, and peripheral arterial occlusive disease. Pt has been having an increase in CP where he needs to use his NTG. He has used NTG 3 times this past month. He has needed to stop activity with his chest or with bowel movements. He feels that he did have some afib last week. He does feel that he has SOB with exertion, but feels that this is at baseline. He does not have any lightheadedness/dizziness. He does have claudication issues, he has [place] [facility] [place]. Intake Vital Signs: See EMR Intake Visit Reasons: [facility] Prize Coordinator Required: No Is patient in pain?: No Allergies adhesive Allergy (Verified 11/15/22 13:32) rash, itchiness Penicillins Allergy (Verified 11/15/22 13:32) Unknown lisinopril Adverse Reaction (Verified 11/15/22 13:32) Cough Medications See EMR [facility] Medical History Acute renal failure Arthritis Atherosclerotic heart disease of [place] coronary artery without angina pectoris Back pain Bilateral carotid artery stenosis BiPAP (biphasic positive airway pressure) dependence Bradycardia CAD (coronary artery disease) Cardiology follow-up encounter Chest pain, unspecified Cholelithiasis with chronic cholecystitis Diabetes Epigastric pain Essential hypertension Excessive bleeding Fatty liver GERD (gastroesophageal reflux disease) Heartburn History of atrial fibrillation History of echocardiogram History of stress test HLD (hyperlipidemia) Hypertension Leg cramps Microalbuminuria Non-smoker NSTEMI (non-ST elevated myocardial infarction) Obesity (BMI 30-39.9) PAD (peripheral artery disease) Paroxysmal atrial fibrillation Poor circulation of extremity Prostate disease Raynauds disease Renal insufficiency Restless legs Screening for malignant neoplasm of intestine Shortness of breath on exertion Type 2 diabetes mellitus Wears glasses Surgical History H/O coronary artery bypass surgery (09/21/17) History of angioplasty of peripheral vessel History of bilateral cataract extraction History of colonoscopy History of inguinal hernia repair History of selective injection of anesthetic agent around lumbar nerve root Hx of cholecystectomy Postsurgical percutaneous transluminal coronary angioplasty (PTCA) status Presence of stent in coronary artery (~04/20/15) Family History Father Heart diseaseGrandmother HypertensionGrandfather Heart disease Myocardial infarction Social History Smoking Status: Never smoker alcohol intake: current ROS Const Const: Positive for fatigue; Negative for weakness, body ache, fever(s), headache(s), chills, frequent falls, night sweats, daytime sleepiness, difficulty sleeping, excessive sweating, weight gain, weight loss, increased appetite, poor appetite, anorexia or other Eyes Eyes: Negative for blurry vision or double vision ENT ENT: Negative for headache(s), dizziness or balance problems Cardio Chest Pain: Yes Character: other (crushing pain) Onset: at rest and exercise Location: mid sternal (into back) Duration: continuous Relieving: other (x1 nitro slightly improved but resolved later) Palpitations: No Edema: None Muscle aches with walking: None Resp Respiratory: Positive for SOB with activity (occasional); Negative for SOB at rest, SOB orthopnea\SOB lying down, Cough, Coughing up blood/hemoptysis, chest congestion, pain on inspiration, snoring, stridor, wheezing, crackles, paroxysmal nocturnal dyspnea or other Musc Musc: Positive for muscle aches/ myalgia (Bilat LE); Negative for muscle weakness, joint pain or balance problems Neuro Neuro: Negative for dizziness, lightheadedness, near syncope, syncope, orthostatic symptoms, frequent falls, headache(s), weakness, confusion, memory loss, restless legs, blurry vision, double vision, vertigo, seizures, lack of coordination or other Endo Endo: Positive for fatigue; Negative for excessive sweating Cardiology Exam Const Appearance: cooperative, healthy appearing, comfortable, no acute distress, well developed and well groomed Nutritional Appearance: obese Orientation: alert, awake and oriented x3 Head Head: normal to inspection, normocephalic and atraumatic Nose: external nose normal Face and Sinus: face symmetric Eyes Eyelids: eyelids normal Conjunctivae: conjunctivae normal Pupils: PERRL EOM: EOM intact bilaterally Neck Neck: normal visual inspection and full ROM Carotids: normal carotid upstroke Chest Chest inspection: normal inspection of the chest, symmetric chest movement and normal respiratory effort Auscultation: Bilateral: Clear to Auscultation Cardio Palpation: normal PMI Rate: regular rate Rhythm: regular rhythm Heart sounds: S1 normal, S2 normal and positive S4 GI GI: normal to inspection, soft, bowel sounds present and obese Neuro General: patient alert, patient awake, patient oriented x3 and moves all extremities Skin Skin: no rashes or lesions noted Extremities Pulses: Normal: Right Radial Pulse and Left Radial Pulse Lower Extremity Edema: None: Bilateral Psych Psychological: normal affect Supplemental Info Echocardiogram: 02-25-2018 Segmental dysfunction with preserved ejection fraction (see wall motion). The estimated ejection fraction is 60 %. Post operative septal motion. Trivial mitral valve insufficiency. Trivial tricuspid valve insufficiency. Mild focal aortic valve calcification. Unable to estimate RV systolic pressure/pulmonary artery pressure due to technically difficult study. Diastolic function is indeterminate. Stress Test From 12/07/2022: Conclusion: Abnormal pharmacologic myocardial perfusion stress test. Mid anterior ischemia is noted Reduced ejection fraction. Cardiac Catheterization: 02-26-2018 CONCLUSIONS Elevated Left Ventricular End Diastolic Pressure Segmented LV systolic dysfunction- Mild LVEF: by LV gram 50 % [place] Multivessel CAD MANCERA to LAD: patent SVG to OM: occluded SVG to IR: occluded SVG sequential graft to RCA PDA / PLV: occluded Left to Left Collateral Flow Right to Left Collateral Flow RECOMMENDATIONS Risk factor modification Medical therapy CORONARY ANGIOGRAPHY DOMINANCE: Right Dominant LEFT HEART ASSESSMENT Left Ventricular Ejection Fraction: by LV Gram 50 % Inferior Basal Akinesis. Inferior Mid Hypokinesis. Inferior Apical Hypokinesis Elevated Left Ventricular End Diastolic Pressure LVEDP: 18 mmHg LEFT MAIN: Mild calcification, Mild luminal irregularities LEFT ANTERIOR DESCENDING ARTERY: Mild luminal irregularities PROX LAD: Mild calcification MID LAD: is occluded, Fills predominantly from MANCERA graft flow with no angiographically significant appearing disease distal to the graft attachmenty DIAGONAL 1: Mid - 50 % Stenosis DIAGONAL 2: Proximal - 25 % Stenosis CIRCUMFLEX ARTERY: PROX CIRC: Mild luminal irregularities OM 2: Mid - superior bifurcating branch appears occluded RAMUS: is occluded with the distal bifurcating portion filling late, faintly, and partially from left to left collateral flow RIGHT CORONARY ARTERY: Diffuse 25 % Stenosis PROX RCA: Previously placed stent is patent DISTAL RCA: is occluded GRAFTS: MANCERA graft to the Mid LAD is patent Saphenous Vein graft to the 2nd OM is totally occluded Saphenous Vein graft to the Ramus is totally occluded Saphenous Vein graft to the RCA is totally occluded COLLATERAL FLOW: Collateral flow from Left to Left Collateral flow from Left to Right VALVE FINDINGS: Normal Aortic Valve function Normal Mitral Valve function AORTIC ROOT: Angiographically normal Carotid duplex ultrasound from December 2016 Right carotid bulb with less than 50% stenosis of the right internal carotid and minimal plaque within the left internal carotid with less than 50% stenosis. Assessment and Plan Assessment and Plan (1) Atherosclerotic heart disease of [place] coronary artery without angina pectoris: Status: Chronic Qualifiers: [place] vs. transplanted heart: [place] heart Qualified Code(s): I25.10 - Atherosclerotic heart disease of [place] coronary artery without angina pectoris Comment: PCI/stent to prox/distal RCA 2008; PCI/Stent to mid RCA and PCi of the PDA 04/20/15; CABG x5- MANCERA to LAD, SVG to Ramus, SVG to PDA, SVG to PLV, SVG to OM, PV isolation, left atrial appendage excision 09/21/17 Plan: Pt does have symptoms concerning for angina. He underwent a stress test on 12/07/2022 was abnormal. He will proceed with heart catheterization. Depending on results further recommendation will be made. (2) Presence of stent in coronary artery: Status: Chronic Comment: PCI/stent to prox/distal RCA 2008; PCI/Stent to mid RCA and PCI of the PDA 04/20/15 (3) H/O coronary artery bypass surgery: Status: Chronic Comment: CABG x5- MANCERA to LAD, SVG to Ramus, SVG to PDA, SVG to PLV, SVG to OM, PV isolation, left atrial appendage excision 09/21/17 (4) HLD (hyperlipidemia): Status: Chronic Qualifiers: Hyperlipidemia type: unspecified Qualified Code(s): E78.5 - Hyperlipidemia, unspecified Plan: This is managed by his primary care doctor. He will continue with his atorvastatin and fenofibrate. (5) Essential hypertension: Status: Chronic Plan: Controlled on current medications. Will not make any adjustments. (6) Chest pain, unspecified: Status: Chronic Plan: He will proceed with Heart catheterization. (7) PAD (peripheral artery disease): Status: Chronic Comment: PCI/Stent L fem artery 11/26/07; PCI Rt fem 02/17/08; PCI Left pop and sup femoral artery 03/09/10; PCI Rt pop and Rt SFA 05/11/10; PCI bilat LE arteriogram w/angioplasty 10/03/10; PCI/LLE 07/17/11 Plan: Patient does follow with his primary care for this. He has been established with Dr. Gomez in the past.
[2022-12-21 06:34] LABS: INR Fingerstick 1.7; Prothrombin Time Fingerstick 18.5 SEC (11.7-14.9)
[2022-12-21 07:04] VITALS: BMI 33.9
--- NOTE | 2022-12-21 08:48 | CL.D_ITS ---
Patient Name: NOMAN STONE Study Date: 12/21/2022 Performing: Agustín Rawls MD Ht: 68 inches 172.72 cm : 1955 Wt: 227.05 lbs 102.99 kg Age: 67 Gender: male BSA: 2.16 PROCEDURE(S) PERFORMED [id number]-([id number])LHC/COR/CABG CLINICAL PROFILE AND INDICATIONS Indications: Worsening Angina Heart Failure: None Stress/Imaging Date: 12/07/22Stress Test with SPECT MPI: Positive Intermediate Risk CAD Presentations: Unstable angina. CONCLUSIONS Severe [place] vessel triple-vessel disease and graft disease with patent MANCERA to the LAD with collateralization of the distal LAD to the right coronary artery RECOMMENDATIONS We will recommend maximal medical therapy. DESCRIPTION OF PROCEDURE The patient arrived to the procedure lab. The risks and benefits of the procedure as well as a full description of our services here and current unavailability of surgical backup were fully explained to the patient and/or their significant other prior to the catheterization. The Timeout was completed, verifying the correct patient and procedure. The patient's procedural site was prepped and draped in the usual fashion. Local anesthetic was given subcutaneously to left radial region with Lidocaine 2%. Using a modified Seldinger technique, arterial access was obtained via the left femoral artery, a 6Fr sheath was inserted. Left internal mammary artery graft to the LAD selective angiography was performed in multiple views using a 5 Fr. IM catheter. Left Coronary Artery selective angiography was performed in multiple views using a 5 Fr. JL4 catheter. Right Coronary Artery selective angiography was then performed in multiple views using a 5 Fr. 3DRC (Dhaval) catheter. CORONARY ANGIOGRAPHY DOMINANCE: Right Dominant LEFT HEART ASSESSMENT Left Ventricular Ejection Fraction: by Echo 45 % Depressed Left Ventricular systolic function LEFT MAIN: Mild calcification, No significant disease noted LEFT ANTERIOR DESCENDING ARTERY: Severely diseased vessel with total occlusion of the mid left anterior descending artery CIRCUMFLEX ARTERY: Severely diseased vessel nondominant with first obtuse marginal branch with mild disease in the mid circumflex artery with diffuse 90% long stenosis and distal mild disease. RIGHT CORONARY ARTERY: Severely diseased vessel with proximal 30 to 40% stenosis and mid total occlusion of a dominant right coronary artery. Ryae-ca-effvq collaterals noted. GRAFTS: MANCERA graft to the Mid LAD is patent Saphenous Vein graft to the Ramus is totally occluded Saphenous Vein graft to the RPDA is totally occluded Saphenous Vein graft to the 1st OM is totally occluded COLLATERAL FLOW: Collateral flow from Left to Right COMPLICATIONS No Complications PROCEDURE MEDICATIONS Fentanyl 50 mcg IV Versed 1 mg IV Oxygen: 2 L/min via nasal cannula SUMMARY OF HEMODYNAMIC DATA Time AIR REST ECG 07:05:47 Art 141/58 (85) 08:01:18 AO 135/68 (95) SA 08:13:49 AIR REST 08:47:42 Signed By Agustín Rawls MD On 12/21/2022 08:48:13 Signed By Agustín Rawls MD On 12/21/2022 08:47:34 Agustín Rawls MD
--- NOTE | 2022-12-21 09:53 | ECHOCS_ITS ---
Reason For Study: CAD/ASHD Procedure This was a 2D Doppler, Color Flow transthoracic echocardiogram. The study was technically difficult. Exam performed in department. Left Ventricle Normal LV size. Left ventricular systolic function is normal. The estimated ejection fraction is 60 %. No regional wall motion abnormalities noted. Right Ventricle Normal RV size. Normal systolic function. Atria Normal left atrium. Normal right atrium. Mitral Valve Normal mitral valve. Tricuspid Valve Normal tricuspid valve. Aortic Valve Trisinus/trileaflet aortic valve. Pulmonic Valve The pulmonic valve is not well visualized. Great Vessels Normal aortic root. The pulmonary artery is normal size. Normal inferior vena cava. Pericardium/Pleural No pericardial effusion. Medication Diluted definity 4ml given slow IV push to enhance endocardial definition. MMode/2D Measurements & Calculations LVIDd: 4.6 cm IVSd: 1.1 cm Ao root diam: 3.3 cm LVIDs: 2.8 cm LVPWd: 1.1 cm RVDd: 3.4 cm FS: 39.6 % LAV(MOD-bp): 34.7 ml LVAd ap4: 32.9 cm2 SV(MOD-sp4): 74.6 ml LAV(MOD-bp) Indexed: 16.2 ml/m2 LVLd ap4: 8.3 cm LAV(MOD-sp2): 32.3 ml EDV(MOD-sp4): 108.1 ml LAV(MOD-sp4): 35.2 ml EDV(sp4-el): 111.5 ml LVAs ap4: 17.2 cm2 LVLs ap4: 7.1 cm ESV(MOD-sp4): 33.5 ml ESV(sp4-el): 35.5 ml EF(MOD-sp4): 69.0 % EF(sp4-el): 68.2 % SV(sp4-el): 76.0 ml LA A4 area: 15.4 cm2 LA dimension(2D): 3.4 cm RA A4 area: 12.2 cm2 Time Measurements MV dec time: 0.22 sec Doppler Measurements & Calculations MV E max ozzy: 83.6 cm/sec Lat Peak E' Ozzy: 10.3 cm/sec Med Peak E' Ozzy: 5.9 cm/sec MV A max ozzy: 73.8 cm/sec E/E' lat: 8.1 E/E' med: 14.2 MV E/A: 1.1 Ao V2 max: 173.1 cm/sec LV V1 max: 102.8 cm/sec PA V2 max: 84.4 cm/sec Ao max P.0 mmHg LV V1 max P.2 mmHg ECHO/Echo Complete W/ Contrast Interpretation Summary Normal LV size. Left ventricular systolic function is normal. The estimated ejection fraction is 60 %. Contrast injection was performed. Ordering Physician: Agustín Rawls Referring Physician: KELLY MORRISSEY Performed By: Katt Xiong RDCS
== END 2022-12-21 10:20 | disposition home or self-care (01) ==
PROVIDERS: PCP Family Medicine; Referring Provider Internal Medicine Cardiovascular Disease; Visit Provider Internal Medicine Cardiovascular Disease
DX: I25.110 Atherosclerotic heart disease of native coronary artery with unstable angina pectoris (principal); E11.51 Type 2 diabetes mellitus with diabetic peripheral angiopathy without gangrene; I48.0 Paroxysmal atrial fibrillation; Z95.5 Presence of coronary angioplasty implant and graft; E78.5 Hyperlipidemia, unspecified; I10 Essential (primary) hypertension; Z95.1 Presence of aortocoronary bypass graft
CPT/HCPCS: 36416; 85610; 93306; 93455; 99152; 99153; C1894; J7040; Q9957; A4216; C1769; C8929

== ENCOUNTER → 2023-08-09 | Outpatient (CLI) | payer MEDICARE, BC, SELFPAY ==
[2023-08-09 13:34] LABS: Color, Urine Straw (Yellow); Glucose, Dipstick 1000 mg/dl (Normal); Ketone-Dipstick Negative (Negative); Leukocyte Esterase-Dipstick Negative /ul (Negative); Nitrite-Dipstick Negative (Negative); Occult Blood-Urine Negative /ul (Negative); Protein-Dipstick Negative (Negative); Urine Bilirubin Dipstick Negative (Negative); Urine Clarity Clear (Clear); Urine Urobilinogen Normal (Normal)
[2023-08-09 14:04] LABS: Albumin, Serum 3.8 g/dL (3.2-5.0); Anion Gap 7 (5-15); BUN 27 mg/dL (7-18); BUN/Creat Ratio 14.2 RATIO (10-20); Calcium,Total 9.7 mg/dL (8.5-10.1); Chloride 105 mmol/L (98-107); EST Glomerular Filtration Rate 38 mL/min (>60); Est Glom Filt Rate - Afr Amer 46 mL/min (>60); Glucose 129 mg/dL (74-106); Potassium 3.9 mmol/L (3.5-5.1); Sodium Level 138 mmol/L (136-145)
== END | disposition home or self-care (01) ==
LOC: LAB 12:34
PROVIDERS: PCP Family Medicine; Referring Provider Internal Medicine Nephrology; Visit Provider Internal Medicine Nephrology
DX: N18.32 Chronic kidney disease, stage 3b (principal)
CPT/HCPCS: 36415; 80048; 81002; 82040

== ENCOUNTER → 2023-08-23 | Outpatient (CLI) | payer MEDICARE, BC, SELFPAY ==
--- NOTE | 2023-08-23 09:04 | RDU_ITS ---
Reason For Study: CKD3 Right Renal Artery Left Renal Artery Right renal artery ostium Left renal artery ostium 86.9/19.4 108.8/21.2 RSV/EDV. PSV/EDV. Right renal artery proximal Left renal artery proximal PSV/EDV 123.5/23.0 PSV/EDV. 123.5/26.7 . Right renal artery mid 150.9/32.1 Left renal artery mid 112.5/26.7 PSV/EDV. PSV/EDV . Right renal artery distal Left renal artery distal 137.9/34.9 176.9/38.6 PSV/EDV. PSV/EDV. Right RAR 2.6. Left RAR 2.1. Right Renal Parenchyma Left Renal Parenchyma Upper Pole Medula 33.4/8.8 PSV/EDV. Left upper pole medulla 33.9/11.9 Right upper pole medulla EDR .26 . PSV/EDV . Right upper pole medulla R.I. .74 . Left upper pole medulla EDR .35 . Upper Aidan Cortx 20.6/7.9 PSV/EDV. Left upper pole medulla R.I. .65 . Right upper pole cortex EDR .38 . UP Cortex 30.6/10.9 PSV/EDV. Right upper pole cortex R.I. .62 . Left upper pole cortex EDR .35 . Right lower Pole medulla 50.8/12.4 Left upper pole cortex R.I. .65 . PSV/EDV . Left lower Pole medulla 28.4/8.7 Right lower pole medulla EDR .24 . PSV/EDV . Right lower pole medulla R.I. .76 . Left lower pole medulla EDR .31 . Lower Pole Cortex 18.8/6.9 PSV/EDV. Left lower pole medulla R.I. .69 . Right lower pole cortex EDR .37 . Lower Pole Cortx 18.5/7.6 PSV/EDV. Right lower pole cortex R.I. .63 . Left lower pole cortex EDR .41 . Right Renal Hilar Left lower pole cortex R.I. .59 . Right Hilar avg 67.2/18.8 PSV/EDV. Left Renal Hilar Right hilar acceleration time 50 LT Hilar avg 47.0/11.9 PSV/EDV . m/sec. Left hilar acceleration time 50 Right Renal Dimensions m/sec. Right kidney size 12.1 cm . Left Renal Dimensions Right cortical dimension 1.34 cm . Left kidney size 11.5 cm . Left cortical dimension 1.65 cm . Aorta Proximal abdominal aorta 1.41 x 1.41 cm . Proximal abdominal aorta peak systolic velocity is 66.8 cm/sec . Distal abdominal aorta 1.1 x 1.16 cm . Distal abdominal aorta peak systolic velocity is 49.7 cm/sec . Normal renal veins bilat. VL/Renal Artery Duplex Ultrasound Interpretation Summary Right renal artery patent with normal velocities and no evidence of stenosis. Left renal artery patent with normal velocities and no evidence of stenosis. Right renal vein patent. Left renal vein patent. Right kidney normal in size. Left kidney normal in size. Ordering Physician: Rosemarie Mckee Referring Physician: Rosemarie Mckee Performed By: Travis Sidhu RVT
== END | disposition home or self-care (01) ==
LOC: CVS 09:02
PROVIDERS: PCP Family Medicine; Referring Provider Internal Medicine Nephrology; Visit Provider Internal Medicine Nephrology
DX: N18.32 Chronic kidney disease, stage 3b (principal)
CPT/HCPCS: 93975

== ENCOUNTER → 2023-10-12 | Outpatient (CLI) | payer MEDICARE, BC, SELFPAY ==
--- NOTE | 2023-10-12 12:54 | ADU_ITS ---
Reason For Study: Claudication Right Velocities Left Velocities Ext. Iliac Artery, dist = 76.9 cm./sec. Ext Iliac Artery, dist = 52.7 cm./sec. Common Femoral Artery, mid = 78.2 cm./sec. Common Femoral Artery, mid = 80.2 cm./sec. Supf Femoral Artery, prox = 227.2 cm./sec. Supf. Femoral Artery, prox = 61.3 cm./sec. Supf Femoral Artery, mid = 91.1 cm./sec. SFA mid, prox to stent, 63.7 cm/sec. Supf Femoral Artery, dist. = 21.6 cm./sec. SFA mid, prox stent, 45.3 cm/sec. Profunda Femoral Artery = 51.5 cm./sec. SFA mid, mid stent, 35.7 cm/sec. Popliteal Artery, mid = 9.1 cm./sec. SFA mid, distal stent, 272 cm/sec. CATEGORY MANAGER and Coleman A prox-mid No flow noted. SFA mid, distal to stent, 58.9 cm/sec. Peroneal Artery,dist = 34.3 cm./sec. Supf. Femoral Artery, dist = 21.5 cm./sec. Ant. Tibial Artery, prox = 57.4 cm./sec. Profunda Femoral Artery = 45.3 cm./sec. Ant. Tibial Artery, mid = 30 cm./sec. Popliteal Artery, distal = 11.2 cm./sec. Ant. Tibial Artery, dist = 57.6 cm./sec. Rebecca measures 1.46 x 1.48 x 1.66 cm. CATEGORY MANAGER and PeroA no flow noted. Ant.Tibial Artery, prox = 22 cm./sec. Ant Tibial Artery, mid = 0 cm./sec. Ant. Tibial Artery, distal = 13.3 cm./sec. Procedure The exam was of adequate technical quality. Exam performed in department. /US Art Duplex Bilat Lower Ext Interpretation Summary Right superficial femoral artery with >50% stenosis proximally. Posterior tibia l and peroneal artery occlusions. Left superficial femoral artery stent with distal stenosis >50%. Posterior tibi al and peroenal arteries occluded throughout. Anterior tibial artery mid vessel occlusion. 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
--- NOTE | 2023-10-12 12:54 | ART_ITS ---
Reason For Study: Claudication Procedure A bilateral lower extremity continuous wave Doppler with analog waveform analysis and ankle brachial indexes. Left Segmental Pressures Left brachial= 147mmHg. Left posterior tibial artery = 75mmHg. Left dorsalis pedis artery = 84mmHg. Left digit = 46 mmHg. The left dorsalis pedis waveforms are monophasic. The left posterior tibial artery waveforms are monophasic. Right Segmental Pressures Right brachial= 135mmHg. Right dorsalis pedis artery = 97mmHg. Right digit = 57 mmHg. The right dorsalis pedis waveforms are monophasic. The right posterior tibial artery is absent. Indices The right ankle brachial index by the dorsalis pedis is 0.66. The right digital-brachial index is 0.39. The left ankle brachial index by the dorsalis pedis is 0.57. The left ankle brachial index by the posterior tibial artery is 0.51. The left digital-brachial index is 0.31. VL/Ankle Brachial Index Interpretation Summary Right NIKKI 0.66, moderate arterial insufficiency. Doppler/PVR waveforms of the r ight ankle moderately diminished at rest. Left NIKKI 0.57, severe arterial insufficiency. Doppler/PVR waveforms of the left ankle severely diminished at rest. Ordering Physician: Avis Rolle Referring Physician: Uche Jaimes Performed By: Beatriz Crespo RVT
== END | disposition home or self-care (01) ==
LOC: CVS 12:54
PROVIDERS: PCP Family Medicine; Referring Provider Physician Assistant; Visit Provider Physician Assistant
DX: I73.9 Peripheral vascular disease, unspecified (principal)
CPT/HCPCS: 93922; 93925

== ENCOUNTER → 2023-10-23 | Outpatient (CLI) | payer MEDICARE, BC, SELFPAY ==
[2023-10-23 15:24] LABS: International Normalized Ratio 1.1; Prothrombin Time (Protime)PT. 14.2 SECONDS (11.7-14.9)
== END | disposition home or self-care (01) ==
LOC: MTLAB 12:43
PROVIDERS: PCP Family Medicine; Referring Provider Clinical Nurse Specialist Adult Health; Visit Provider Clinical Nurse Specialist Adult Health
DX: Z79.01 Long term (current) use of anticoagulants (principal)
CPT/HCPCS: 36415; 85610

== ENCOUNTER → 2023-10-29 | Outpatient (CLI) | payer MEDICARE, BC, SELFPAY ==
[2023-10-29 15:55] LABS: ALB/GLOB Ratio 0.9 RATIO (0.9-2.4); AST(SGOT) 15 U/L (15-37); Alanine Aminotransfer ALT/SGPT 27 U/L (16-61); Albumin, Serum 3.4 g/dL (3.2-5.0); Alkaline Phosphatase 51 U/L (45-117); Anion Gap 8 (5-15); BUN 31 mg/dL (7-18); BUN/Creat Ratio 13.5 RATIO (10-20); Chloride 102 mmol/L (98-107); Creatinine, Serum 2.29 mg/dL (0.70-1.30); EST Glomerular Filtration Rate 30 mL/min (>60); Est Glom Filt Rate - Afr Amer 37 mL/min (>60); Globulin 3.9 g/dL (2.2-4.2); Glucose 109 mg/dL (74-106); Potassium 3.9 mmol/L (3.5-5.1); Protein, Total 7.3 g/dL (6.4-8.2); Sodium Level 141 mmol/L (136-145)
== END | disposition home or self-care (01) ==
LOC: MTLAB 13:47
PROVIDERS: PCP Family Medicine; Referring Provider Internal Medicine Nephrology; Visit Provider Internal Medicine Nephrology
DX: N18.32 Chronic kidney disease, stage 3b (principal)
CPT/HCPCS: 36415; 80053

== ENCOUNTER → 2023-12-03 | Outpatient (CLI) | payer MEDICARE, BC, SELFPAY ==
[2023-12-03 16:36] LABS: PSA,Total - Annual Screen 0.53 ng/mL (0.00-4.00)
== END | disposition home or self-care (01) ==
LOC: LAB 15:02
PROVIDERS: PCP Family Medicine; Referring Provider Urology; Visit Provider Urology
DX: Z12.5 Encounter for screening for malignant neoplasm of prostate (principal)
CPT/HCPCS: 36415; 84153; G0103

== ENCOUNTER → 2024-01-08 | Outpatient (CLI) | payer MEDICARE, BC, SELFPAY ==
[2024-01-08 16:38] LABS: Albumin, Serum 3.5 g/dL (3.2-5.0); BUN 20 mg/dL (7-18); BUN/Creat Ratio 9.8 RATIO (10-20); Calcium,Total 9.7 mg/dL (8.5-10.1); Chloride 103 mmol/L (98-107); Creatinine, Serum 2.04 mg/dL (0.70-1.30); EST Glomerular Filtration Rate 35 mL/min (>60); Est Glom Filt Rate - Afr Amer 42 mL/min (>60); Glucose 174 mg/dL (74-106); Phosphorus 3.1 mg/dL (2.5-4.9); Potassium 3.8 mmol/L (3.5-5.1); Sodium Level 138 mmol/L (136-145)
== END | disposition home or self-care (01) ==
PROVIDERS: PCP Family Medicine; Referring Provider Internal Medicine Nephrology; Visit Provider Internal Medicine Nephrology
DX: N18.32 Chronic kidney disease, stage 3b (principal)
CPT/HCPCS: 36415; 80069

== ENCOUNTER → 2024-02-08 | Outpatient (CLI) | payer MEDICARE, BC, SELFPAY ==
--- NOTE | 2024-02-08 | LES_PTH ---
PATIENT: NOMAN STONE LOC: [facility] U#:[id number] AGE/SX: 68/M ROOM: RE02/08/[address]: Dr. Aguilar Velasquez MD : [id number] BED: DIS: 02/08/2024 SPEC #: [id number] RECD: 02/08/24 14:58 STATUS: JEANIE REJudson #: [id number] SAM: 02/08/24 00:[address]: Aguilar Velasquez DEPT: SURGICAL PATHOLOGY RECD BY: Edwin Awad ENTERED: 02/11/24 07:56 SP TYPE: Lesion OTHR DR: Dr. 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 See comment. 02/12/[address] Pang has reviewed this case and concurs. MICROSCOPIC DESCRIPTION Slides are reviewed. GROSS DESCRIPTION Received in fixative is one container labeled with the patient's name and designated Left upper lid incision. The specimen consists of one pink nodule measuring 0.5cm in greatest dimension. The excision site is inked. The entire specimen is submitted in one cassette. 02/11/2024 TC:5 CPT:86816
== END | disposition home or self-care (01) ==
LOC: LABSPEC 15:46
PROVIDERS: PCP Family Medicine; Referring Provider Ophthalmology; Visit Provider Ophthalmology
DX: D23.121 Other benign neoplasm of skin of left upper eyelid, including canthus (principal)
CPT/HCPCS: 88305

== ENCOUNTER 2024-02-20 07:01 | Day surgery (SDC) | payer MEDICARE, BC, SELFPAY ==
[2023-12-25 09:06] VITALS: BMI 37.5
[2024-02-20 07:22] LABS: Hematocrit 43.6 % (40-54); Hemoglobin 14.2 g/dL (13.0-16.5); Mean Corp Hgb Conc 32.6 g/dL (32-36); Mean Corpuscular Hgb 31.1 pg (27.0-32.0); Mean Corpuscular Volume 95.4 fL (80-94); Mean Platelet Vol. 9.4 fl (6.2-12.0); Platelet Count 204 K/mm3 (150-450); RBC Distribution Width CV 14.2 % (11.6-14.6); RBC Distribution Width SD 49.8 fl (35.1-43.9); Red Blood Count 4.57 M/mm3 (4.6-6.2); White Blood Count 10.3 K/mm3 (4.4-11.0)
[2024-02-20 07:32] LABS: Anion Gap 5 (5-15); BUN 25 mg/dL (7-18); BUN/Creat Ratio 14.9 RATIO (10-20); Calcium,Total 9.1 mg/dL (8.5-10.1); Chloride 108 mmol/L (98-107); Creatinine, Serum 1.68 mg/dL (0.70-1.30); EST Glomerular Filtration Rate 43 mL/min (>60); Est Glom Filt Rate - Afr Amer 52 mL/min (>60); Estimated Creatinine Clearance 48.84 ml/min; Glucose 163 mg/dL (74-106); Potassium 3.8 mmol/L (3.5-5.1); Sodium Level 140 mmol/L (136-145)
[2024-02-20 07:59] LABS: International Normalized Ratio 1.4; Prothrombin Time (Protime)PT. 16.8 SECONDS (11.7-14.9)
--- NOTE | 2024-02-20 08:42 | PCM.HP.STD ---
HPI - General HPI Narrative NOMAN STONE, is a 68 M who presents with prior bilateral lower extremity interventions. Left sfa stent in ~2011, right sfa/pop/tp trunk atherectomy and angioplasty in 2012. He had been lost to follow up with no imaging for several years until recently. Duplex revealed left sfa in-stent stenosis. He presents for angio with possible intervention for stent preservation. [facility], [facility] Medical History Cancer of skin of right ear Abnormal stress test Wears glasses Poor circulation of extremity Arthritis Prostate disease Fatty liver Excessive bleeding Restless legs Back pain Heartburn Non-smoker BiPAP (biphasic positive airway pressure) dependence Shortness of breath on exertion Leg cramps History of echocardiogram History of stress test Cardiology follow-up encounter History of atrial fibrillation Diabetes Microalbuminuria Obesity (BMI 30-39.9) Bilateral carotid artery stenosis Screening for malignant neoplasm of intestine Cholelithiasis with chronic cholecystitis Epigastric pain Essential hypertension CAD (coronary artery disease) NSTEMI (non-ST elevated myocardial infarction) Renal insufficiency Chest pain, unspecified GERD (gastroesophageal reflux disease) Raynauds disease Atherosclerotic heart disease of [place] coronary artery without angina pectoris Paroxysmal atrial fibrillation HLD (hyperlipidemia) PAD (peripheral artery disease) Hypertension Type 2 diabetes mellitus Bradycardia Acute renal failure Home Medications ?Medication ?Instructions ?Recorded ?Last Taken ?Type aspirin 81 mg tablet,delayed 81 mg PO DAILY@0800 02/27/18 02/20/24 Rx release furosemide 20 mg tablet (Lasix) 40 mg PO DAILY 08/22/18 Unknown History cholecalciferol (vitamin D3) 25 5,000 unit PO DAILY supplement 04/07/20 02/20/24 History mcg (1,000 unit) capsule cyclobenzaprine 10 mg tablet 10 mg PO DAILY PRN muscle spasms 04/07/20 02/20/24 History losartan 50 mg-hydrochlorothiazide 1 tab PO DAILY 04/11/21 02/20/24 History 12.5 mg tablet pen needle, diabetic 32 gauge x #100 ea 05/06/21 Unknown Rx (BD Ultra-Fine Poonam Pen Needle) magnesium oxide 500 mg capsule 500 mg PO BID supplement 11/02/21 12/21/22 History finasteride 5 mg tablet 5 mg PO DAILY 05/18/22 02/20/24 History nitroglycerin 0.4 mg sublingual 0.4 mg sublingual Q5M PRN Chest 11/15/22 Unknown Rx tablet Pain #25 tabs mecobalamin (vitamin B12) 1,000 2,500 mcg PO WE SUPPLEMENT 12/13/22 Unknown History mcg chewable tablet blood-glucose sensor (Dexcom G7 #3 ea 12/28/22 Unknown Rx Sensor device) blood-glucose meter,continuous #1 ea 01/08/23 Unknown Rx (Dexcom G7 Syrup Machine Laborer) betamethasone, augmented 0.05 % 1 applic topical DAILY PRN skin 05/08/23 Unknown History topical cream irritation warfarin 2.5 mg tablet 2.5 mg PO DAILY Blood thinner 05/08/23 Unknown History amlodipine 2.5 mg tablet 2.5 mg PO DAILY bp #90 tabs 05/16/23 02/20/24 Rx Trulicity 3 mg/0.5 mL subcutaneous 3 mg (0.5 mL) subcut QWEEK #2 mL 07/12/23 Unknown Rx pen injector (dulaglutide) famotidine 20 mg tablet 20 mg PO DAILY 07/23/23 02/20/24 History fenofibrate nanocrystallized 48 mg 48 mg PO QDAY 07/23/23 Unknown History tablet hydrocodone-acetaminophen 5-325mg 1 tab PO BID PRN pain 07/23/23 Unknown History 5mg-325mg Farxiga 10 mg tablet 10 mg PO DAILY #90 tabs 08/13/23 02/20/24 Rx (dapagliflozin propanediol) rosuvastatin 20 mg tablet 20 mg PO DAILY 09/21/23 Unknown History Humalog KwikPen Insulin 200 30 unit (0.15 mL) subcut TID #54 mL 11/05/23 Unknown Rx unit/mL (3 mL) subcutaneous (insulin lispro) ranolazine 1,000 mg 1,000 mg PO BID MICHELLE: Insurance 11/15/23 02/20/24 Rx tablet,extended release,12 hr covers name brand #180 tabs dulaglutide 4.5 mg/0.5 mL 4.5 mg (0.5 mL) subcut SA #6 mL 12/20/23 Unknown Rx subcutaneous pen injector (Trulicity) cilostazol 50 mg tablet 50 mg PO BID #60 tabs 01/22/24 02/20/24 Rx [id number]-smwdjnyn-kipsngw 1 cap PO TID #200 caps 01/24/24 Unknown Rx 40,000-126,000-168,000 unit capsule, delay rel (Zenpep) Lantus U-100 Insulin 100 unit/mL 30 unit (0.3 mL) subcut QPM #10 mL 02/04/24 Unknown Rx subcutaneous solution (insulin glargine) carvedilol 25 mg tablet 25 mg PO BID BP/HR #60 tabs 02/04/24 02/20/24 Rx Allergy/AdvReac Type Severity Reaction Status Date / Time adhesive Allergy rash, Verified 12/18/23 14:14 itchiness Penicillins Allergy Unknown Verified 12/18/23 14:14 lisinopril AdvReac Cough Verified 12/18/23 14:14 Family History Father No problems noted. Grandmother Hypertension Grandfather Heart disease Myocardial infarction Surgical History History of bilateral cataract extraction History of selective injection of anesthetic agent around lumbar nerve root History of colonoscopy Hx of cholecystectomy History of angioplasty of peripheral vessel Presence of stent in coronary artery (~04/20/15) History of inguinal hernia repair Postsurgical percutaneous transluminal coronary angioplasty (PTCA) status H/O coronary artery bypass surgery (09/21/17) Social History Smoking Status: Never smoker alcohol intake: current ROS Constitutional Constitutional: Denies chills, fever(s), frequent falls, lethargy or weakness Eyes Eyes: Denies blind spots, change in vision or loss of vision ENT HEENT: Denies bleeding gums, hoarseness or sore throat Cardiovascular Cardiovascular: Denies abdominal pain, bluish discoloration of hand/feet, chest pain with activity, claudication, cold extremities, cyanosis, dyspnea on exertion, erythema on extremities, irregular heart rhythm, leg edema, leg ulcers, numbness in extremities or weakness in extremities Respiratory/Chest Respiratory/Chest: Denies cough, excessive phlegm production, shortness of breath at rest, shortness of breath with exertion or wheezing Gastrointestinal Gastrointestinal: Denies anorexia, change in stool character, constipation, diarrhea, melena or rectal bleeding Genitourinary Genitourinary: Denies dysuria or hematuria Musculoskeletal Musculoskeletal: Denies abnormal gait Integumentary Integumentary: Reports other Details: ; Denies erythema, non-healing lesions or wounds Neurologic Neurologic: Denies abnormal speech, focal weakness, headache(s), loss of vision, numbness, paresthesias or sensory deficit Hematologic/Lymphatic Hematologic/Lymphatic: Denies easy bleeding, easy bruising or lymphadenopathy Vital Signs Vital Signs Vital Signs: Weight Weight: 240 lb Body Mass Index (BMI) 37.5 Physical Exam Const alert, oriented x3, no apparent distress and healthy appearing General Appearance: cooperative; Negative for combative or lethargic Orientation / Consciousness: awake Exam Limitations: no limitations HEENT Head and Scalp: normocephalic and atraumatic Eyes EOMs intact bilaterally General Eye: normal appearance of both eyes Neck full ROM and no lymphadenopathy General: trachea midline; Negative for tenderness Resp normal respiratory effort and no use of accessory muscles Effort and Inspection: Negative for labored, stridor or audible wheezes Cardio regular rate and regular rhythm Back/Spine Cervical Spine: cervical ROM normal Extremity full ROM, normal capillary refill and no clubbing, cyanosis or edema Skin no rashes or lesions noted and no wounds Neuro oriented x3, CN's II-XII intact bilaterally, no focal motor deficits and no sensory deficits noted Psych thought process normal, cooperative, affect normal, speech normal and activity/motor behavior normal Results Lab / Micro Data 02/20/24 07:07 02/20/24 07:07 Labs: Laboratory Results - last 24 hr 02/20/24 07:07: WBC 10.3, RBC 4.57 L, Hgb 14.2, Hct 43.6, MCV 95.4 H, MCH 31.1, MCHC 32.6, RDW Std Deviation 49.8 H, RDW Coeff of [place] 14.2, Plt Count 204, MPV 9.4, PT 16.8 H, INR 1.4, Sodium 140, Potassium 3.8, Chloride 108 H, Carbon Dioxide 27.0, Anion Gap 5, BUN 25 H, Creatinine 1.68 H, Estim Creat Clear Calc 48.84, Est GFR (MDRD) Af Amer 52 L, Est GFR (MDRD) Non-Af 43 L, BUN/Creatinine Ratio 14.9, Glucose 163 H, Calcium 9.1 Assessment & Plan Assessment/Plan (1) Atheroscler of [place] artery of left leg with intermit claudication: PLAN: -angio, treat in stent stenosis
--- NOTE | 2024-02-20 11:41 | PCM.OPRPT ---
Operative Report (Standard) Operative Information Surgery/Procedure Performed: aortogram left lower extremity runoff IVUS left SFA/popliteal, common femoral, external iliac vein angioplasty left sfa Surgeon: Waqas Castellon Date of Procedure: 02/20/24 Procedure Start Time: :00 Procedure Stop Time: 11:00 Pre-Operative Diagnosis: atherosclerosis with claudication left lower extremity, in stent stenosis Post-Operative Diagnosis: same Select all DRAINS/GRAFTS/IMPLANTS that apply: None Type of Anesthesia: Local and Sedation,Conscious Estimated Blood Loss: 5 Specimen collected: No Description of surgery: HPI: Patient is a 68-year-old male with Sclerosis and claudication of bilateral lower extremities. He previously underwent left SFA stenting approximately 12 years prior for similar symptoms which resolved after the intervention. After several years of follow-up he does not have any imaging for the last 5 years until recently when a duplex revealed high-grade in-stent stenosis stenosis. He presents now for angiogram with possible intervention for stent preservation as well as symptom relief. Description of procedure: Upon obtaining form consent and verification correct patient procedure site patient was taken to the [facility] he was positioned prepped and draped in usual sterile fashion. Time was performed consultation administered Versed and fentanyl. Skin overlying the right common femoral artery was anesthetized with 1% lidocaine the vessel accessed under ultrasound guidance with a micropuncture needle wire. This was exchanged for micropuncture sheath through which hand-injection iliofemoral angiogram was performed revealing satisfactory position with no extravasation or dissection. Through the micropuncture sheath Bentson wire was advanced into the abdominal aorta and the micropuncture sheath exchanged for a short 6 [place] sheath. Through the 6 [place] sheath and Omni Flush catheter was advanced into the abdominal aorta and digital subtraction CO2 aortogram pelvic angiogram was performed. This revealed normal caliber aorta with no significant atherosclerosis or stenosis. The right common, internal, external iliac were widely patent with no significant atherosclerosis or stenosis. The left common and external iliac arteries were not well-visualized due to overlying bowel gas but there was brisk CO2 transit across these vessels. Next using the Omni Flush catheter and Bentson wire we navigated to the contralateral iliac system advancing our catheter into the distal external iliac artery. From this position sequential imaging of the left lower extremity was performed with CO2 hand-injections. This revealed diffuse highly calcified atherosclerosis throughout the SFA proximal to the stented segment and high-grade calcified stenosis within the stent greater than 75%. Distal to the stent the CO2 stagnated emptied via mostly collateral branches with no visualization of the distal popliteal or tibial arteries. Hand-injection of traditional contrast through the catheter in the common femoral artery did reveal patent distal popliteal artery which was highly calcified with moderate stenosis, anterior tibial occlusion throughout, proximal posterior tibial occlusion with reconstitution, and a moderately diseased peroneal artery runoff. Next the Bentson wire was readvanced and the catheter positioned within the proximal superficial femoral artery subtraction traditional contrast angiography was performed which confirmed that there were multiple segments of severe stenosis but no total occlusion of the SFA popliteal as suggested by the CO2 imaging. Is felt that this was not potentially treatable with endovascular intervention particular within the stented segment but that with significant diffuse calcified atherosclerosis that treatment of the entirety of the vessel would be of significant risk for dissection or more importantly distal embolization. The patient was then heparinized allowed to circulate for 3 minutes after which the Bentson wire was readvanced and the short 6 [place] sheath and catheter withdrawn and a 6 [place] destination sheath advanced over the wire and positioned in the distal external artery. From this position using a angled quick cross a command 18 wire we attempted to traverse the lesions within the stent. We are unable to traverse the mid portion of the stent where the lesion was most significant so the command wire was then exchanged for a straight stiff Glidewire which was able to successfully navigate into the distal vessel beyond the significant atherosclerosis. Catheter was then advanced and subtraction angiography imaging through the catheter revealed position within the true lumen distally. Command 18 wire was then readvanced and intravascular ultrasound probe advanced over the wire and recorded pullback performed of the popliteal and SFA as well as the common femoral artery and distal external artery. This revealed moderate to severe multiple tandem lesions throughout the proximal SFA of approximately 50% stenosis and greater than 70% stenosis for 3 separate lesions within the stented segment. All of these lesions were highly calcified. Quick cross catheter was then readvanced and the command 18 wire exchanged for the Graftys bare wire was advanced into the distal popliteal artery. An [employer] caro 6 filter was then advanced and deployed in the mid popliteal artery. The lesion was then sequentially treated with escalating balloon angioplasty first a 3 mm high-pressure noncompliant balloon followed by a 5 mm serranator scoring balloon and a 7 mm noncompliant balloon. Finally a 7 mm x 150 [employer] [place] paclitaxel coated balloon was advanced in position and inflated to nominal for 3 minutes then deflated withdrawn. Completion angiography revealed significant improvement in the flow channel with less than 50% stenosis residual with no extravasation or dissection. There was brisk contrast transit in the distal popliteal artery and beyond the filter. Is felt that this was sufficient for symptom relief as well as for maintaining patency of his prior stent. The filter was then recaptured and the wire and catheter withdrawn. The long 6 [place] sheath were then exchanged for a short 6 [place] sheath followed by a minx closure device and 5 minutes of manual pressure. The patient was then taken recovery with plan discharged to home. Surgical Findings: see above Service Desk Team Lead interpersonal communications professor: No Complications Complications: No
[2024-02-20 16:02] LABS: ACT Activated Clotting Time 233 sec (74-137)
[2024-02-20 16:02] LABS: ACT Activated Clotting Time 233 sec (74-137)
== END 2024-02-20 14:43 | disposition home or self-care (01) ==
PROVIDERS: PCP Family Medicine; Referring Provider Surgery Trauma Surgery; Visit Provider Surgery Trauma Surgery
DX: T82.856A Stenosis of peripheral vascular stent, initial encounter (principal); E11.51 Type 2 diabetes mellitus with diabetic peripheral angiopathy without gangrene; I25.10 Atherosclerotic heart disease of native coronary artery without angina pectoris; I10 Essential (primary) hypertension; Z79.02 Long term (current) use of antithrombotics/antiplatelets; E78.5 Hyperlipidemia, unspecified; Z79.82 Long term (current) use of aspirin; Z79.899 Other long term (current) drug therapy; Y71.2 Prosthetic and other implants, materials and accessory cardiovascular devices associated with adverse incidents; I70.213 Atherosclerosis of native arteries of extremities with intermittent claudication, bilateral legs
CPT/HCPCS: 36200; 36245; 36415; 37224; 37252; 37253; 75625; 75710; 76937; 80048; 85027; 85347; 85610; 99152; 99153; C1725; C1753; C1760; C1769; C1884; C1887; C1894; C2623; J7040; Q9967

== ENCOUNTER → 2024-04-10 | Outpatient (CLI) | payer MEDICARE, BC, SELFPAY ==
--- NOTE | 2024-04-10 13:51 | ADUL_ITS ---
Reason For Study: S/P Lt SFA angioplasty Left Velocities Ext Iliac Artery, dist = 98.4 cm./sec. Common Femoral Artery, mid = 96.6 cm./sec. Supf. Femoral Artery, prox = 122.1 cm./sec. SFA mid, prox to stent, 117.7 cm/sec. SFA mid, prox stent, 141.8 cm/sec. SFA mid, mid stent, 183 cm/sec. SFA mid, distal stent, 111.1 cm/sec. SFA mid, distal to stent, 124.2 cm/sec. Supf. Femoral Artery, dist = 86 cm./sec. Profunda Femoral Artery = 118.5 cm./sec. Popliteal Artery, mid = 37.1 cm./sec. Rebecca measures 1.76 x 1.79 x 1.73 cm. CHAYO, retrograde flow noted. Post. Tibial Artery, prox = 0 cm./sec. Post Tibial Artery, mid = 45 cm./sec. Post Tibial Artery, dist. = 60.7 cm./sec. Peroneal Artery, prox = 0 cm./sec. Peroneal Artery, mid = 24.1 cm./sec. Peroneal Artery,dist. = 0 cm./sec. Procedure Exam performed in department. VL/US Art Duplex Unilat Lower Ext Interpretation Summary Left superficial femoral artery stent patent with normal velocities and no evid ence of stenosis. Anterior tibial artery with retrograde flow. Peroneal and posterior tibial arteries with no flow visualized proximally. Ordering Physician: Avis Rolle Referring Physician: Uche Jaimes Performed By: Beatriz Crespo RVT
--- NOTE | 2024-04-10 13:51 | ART_ITS ---
Reason For Study: S/P Lt SFA angioplasty Procedure A bilateral lower extremity continuous wave Doppler with analog waveform analysis and ankle brachial indexes. Left Segmental Pressures Left brachial= 126mmHg. Left posterior tibial artery = 89mmHg. Left dorsalis pedis artery = 81mmHg. Left digit = 22 mmHg. The left dorsalis pedis waveforms are monophasic. The left posterior tibial artery waveforms are monophasic. Right Segmental Pressures Right brachial= 129mmHg. Right posterior tibial artery = 77mmHg. Right dorsalis pedis artery = 59mmHg. Right digit = 11 mmHg. The right dorsalis pedis waveforms are monophasic. The right posterior tibial artery waveforms are monophasic. Indices The right ankle brachial index by the dorsalis pedis is 0.46. The right ankle brachial index by the posterior tibial artery is 0.60. The right digital-brachial index is 0.09. The left ankle brachial index by the dorsalis pedis is 0.63. The left ankle brachial index by the posterior tibial artery is 0.69. The left digital-brachial index is 0.17. VL/Ankle Brachial Index Interpretation Summary Right NIKKI 0.6, moderate arterial insufficiency. Doppler/PVR waveforms of the ri ght ankle moderately diminished at rest. Left NIKKI 0.69, moderate arterial insufficiency. Doppler/PVR waveforms of the le ft ankle moderately diminished at rest. Ordering Physician: Avis Rolle Referring Physician: Uche Jaimes Performed By: Beatriz Crespo RVT
== END | disposition home or self-care (01) ==
LOC: CVS 13:50
PROVIDERS: PCP Family Medicine; Referring Provider Physician Assistant; Visit Provider Physician Assistant
DX: I73.9 Peripheral vascular disease, unspecified (principal); Z98.62 Peripheral vascular angioplasty status; Z48.812 Encounter for surgical aftercare following surgery on the circulatory system

== ENCOUNTER → 2024-05-30 | Outpatient (CLI) | payer MEDICARE, BC, SELFPAY ==
[2024-05-30 17:39] LABS: Absolute Neutrophil Count 6.5 X10^3/uL (2.0-7.7); Basophil# 0.04 X10^3/uL; Basophil% 0.4 % (0-1); Eosinophil# 0.23 X10^3/uL; Eosinophils% 2.4 % (0-5); Hematocrit 46.4 % (40-54); Hemoglobin 15.1 g/dL (13.0-16.5); Lymphocyte % 21.5 % (19-41); Mean Corp Hgb Conc 32.5 g/dL (32-36); Mean Corpuscular Hgb 30.7 pg (27.0-32.0); Mean Corpuscular Volume 94.3 fL (80-94); Mean Platelet Vol. 9.5 fl (6.2-12.0); Monocyte# 0.85 X10^3/uL; Monocyte% 8.7 % (0-10); NRBC Flagged by Analyzer 0 % (0-5); Neutrophil # 6.48 X10^3/uL (2.7-7.7); Neutrophil % 66.2 % (47-70); Platelet Count 198 K/mm3 (150-450); RBC Distribution Width SD 52.7 fl (35.1-43.9); Red Blood Count 4.92 M/mm3 (4.6-6.2); White Blood Count 9.8 K/mm3 (4.4-11.0)
[2024-05-30 18:23] LABS: ALB/GLOB Ratio 1.3 RATIO (0.9-2.4); AST(SGOT) 17 U/L (<=37); Alanine Aminotransfer ALT/SGPT 18 U/L (<=46); Albumin, Serum 4.3 g/dL (3.4-4.8); Alkaline Phosphatase 46 U/L (40-129); Anion Gap 12 (5-15); BUN 16 mg/dL (4-19); BUN/Creat Ratio 8.8 RATIO (10-20); Carbon Dioxide 27.1 mmol/L (21.0-32.0); Chloride 101 mmol/L (98-108); Creatinine, Serum 1.81 mg/dL (0.70-1.20); EST Glomerular Filtration Rate 40 (>60); Globulin 3.3 g/dL (2.2-4.2); Glucose 140 mg/dL (70-99); LDH 131 U/L (87-241); Protein, Total 7.5 g/dL (5.9-8.4); Sodium Level 141 mmol/L (133-145); Total Bilirubin 0.48 mg/dL (0.00-1.30)
[2024-06-03 17:07] LABS: Albumin 3.6 g/dL (2.9-4.4); Alpha-1-Globulins 0.2 g/dL (0.0-0.4); Alpha-2-Globulins 0.9 g/dL (0.4-1.0); Free Kappa Light Chains 31.4 mg/L (3.3-19.4); Free Lambda Light Chains 22.9 mg/L (5.7-26.3); Gamma Globulin 1.3 g/dL (0.4-1.8); Immunoglobulin A 443 mg/dL (61-437); Immunoglobulin G 1122 mg/dL (603-1613); Immunoglobulin M 106 mg/dL (20-172); PROEL- TOTAL PROTEIN 7.2 g/dL (6.0-8.5)
== END | disposition home or self-care (01) ==
LOC: MTLAB 15:33
PROVIDERS: PCP Family Medicine; Referring Provider Internal Medicine Medical Oncology; Visit Provider Internal Medicine Medical Oncology
DX: D89.89 Other specified disorders involving the immune mechanism, not elsewhere classified (principal); R76.8 Other specified abnormal immunological findings in serum; C44.41 Basal cell carcinoma of skin of scalp and neck
CPT/HCPCS: 36415; 80053; 82784; 83615; 83883; 84165; 85025; 86334

== ENCOUNTER → 2024-06-12 | Outpatient (CLI) | payer MEDICARE, BC, SELFPAY ==
--- NOTE | 2024-06-12 13:42 | ECHOCS_ITS ---
Reason For Study Reason For Study: Dyspnea/SOB Procedure This was a 2D Doppler, Color Flow transthoracic echocardiogram. The study was technically difficult. Contrast injection was performed. Exam performed in department. Left Ventricle Normal LV size. Mild concentric left ventricular hypertrophy. Left ventricular systolic function is normal. The left ventricular ejection fraction is 60 %. No regional wall motion abnormalities noted. Right Ventricle Normal RV size. Normal systolic function. Atria Normal left atrium. Normal right atrium. Mitral Valve Normal mitral valve. Tricuspid Valve Normal tricuspid valve. Aortic Valve Trisinus/trileaflet aortic valve. Mild focal aortic valve calcification. Pulmonic Valve Normal pulmonic valve. Great Vessels Normal aortic root. The pulmonary artery is normal size. Inferior vena cava collapse with respiration. Pericardium/Pleural No pericardial effusion. Medication 22 gauge I.V. with prn adaptor inserted into right arm. Diluted definity 4ml given slow IV push to enhance endocardial definition. MMode/2D Measurements & Calculations LVIDd: 4.4 cm IVSd: 1.3 cm Ao root diam: 3.6 cm LVIDs: 3.3 cm LVPWd: 1.3 cm RVDd: 3.3 cm FS: 24.8 % LAV(MOD-bp): 49.5 ml Ao sinus diam: 3.[address] Junction: 2.7 cm LAV(MOD-bp) Indexed: 23.1 ml/m2 LAV(MOD-sp2): 55.5 ml LAV(MOD-sp4): 43.8 ml LA dimension(2D): 4.4 cm LA A4 area: 16.4 cm2 RA A4 area: 11.8 cm2 TAPSE: 1.3 cm Time Measurements MV dec time: 0.21 sec Doppler Measurements & Calculations MV E max ozzy: 81.3 cm/sec Lat Peak E' Ozzy: 11.4 cm/sec Med Peak E' Ozzy: 8.3 cm/sec MV A max ozzy: 75.5 cm/sec E/E' lat: 7.1 E/E' med: 9.8 MV E/A: 1.1 MV V2 max: 89.3 cm/sec MV P1/2t max ozzy: 88.3 cm/sec Ao V2 max: 166.8 cm/sec MV max P.2 mmHg MV P1/2t: 64.7 msec Ao max P.1 mmHg MV V2 mean: 54.1 cm/sec MV dec slope: 400.0 cm/sec2 MV mean P.3 mmHg MV V2 VTI: 26.9 cm MVA(P1/2t): 3.4 cm2 LV V1 max: 93.9 cm/sec PA V2 max: 85.6 cm/sec LV V1 max P.5 mmHg ECHO/Echo Complete W/ Contrast Interpretation Summary Normal LV size. Left ventricular systolic function is normal. The left ventricular ejection fraction is 60 %. Mild concentric left ventricular hypertrophy. Contrast injection was performed. Ordering Physician: Emile Justice Referring Physician: Emile Justice Performed By: Garo Guzmán RCS
== END | disposition home or self-care (01) ==
LOC: CVS 13:41
PROVIDERS: PCP Family Medicine; Referring Provider Internal Medicine Cardiovascular Disease; Visit Provider Internal Medicine Cardiovascular Disease
DX: R06.02 Shortness of breath (principal)
CPT/HCPCS: 93306; Q9957; A4216; C8929

== ENCOUNTER → 2024-07-16 | Outpatient (CLI) | payer MEDICARE, BC, SELFPAY ==
--- NOTE | 2024-07-16 11:50 | NM_ITS ---
PROCEDURE: GASTRIC EMPTYING STUDY 07/16/2024 REASON FOR EXAM: DIARRHEA COMPARISON: None. TECHNIQUE: The patient ingested a standard meal of oatmeal and 1.1 mCi of technetium labeled sulfur colloid and water. Total time taken to ingest the meal was minutes. Approximately % of the meal was ingested. There was no vomiting postprandially. Anterior and posterior planar images of the upper abdomen were obtained for 1 minute immediately following the meal at 1h, 2h and 4h if more than 10% of the activity persisted within the stomach. Regions of interest were drawn, and a geometric mean was used to calculate a [id number]. RADIOPHARMACEUTICAL: 1.1 mCi of technetium labeled sulfur colloid. FINDINGS: Percent activity remaining in stomach: 1 hour 13% % (normal 37-90%) NM/Gastric Emptying Study IMPRESSION: Normal gastric emptying. Reading Location: [place] [id number]
== END | disposition home or self-care (01) ==
LOC: NM 11:49
PROVIDERS: PCP Family Medicine; Referring Provider Internal Medicine Gastroenterology; Visit Provider Internal Medicine Gastroenterology
DX: R10.31 Right lower quadrant pain (principal); K59.1 Functional diarrhea; R10.13 Epigastric pain
CPT/HCPCS: 78264; A9541

== ENCOUNTER → 2024-08-06 | Outpatient (CLI) | payer MEDICARE, BC, SELFPAY ==
--- NOTE | 2024-08-06 14:33 | NEURO ---
NCS and/or EMG Patient Report Ordering Doctor: Uche Jaimes DATE OF SERVICE: 08/06/24 Olman presents for electrodiagnostic testing of the upper limbs. Reports numbness and tingling in both hands and arms. Electrodiagnostic findings: Left median motor nerve demonstrates prolonged latency with normal amplitude and reduced conduction velocity. Right median motor nerve demonstrates prolonged latency with normal amplitude and reduced conduction velocity. Ulnar motor response is within normal limits bilaterally. Normal median and ulnar F?waves. Normal median sensory latency at the wrist bilaterally. Normal ulnar and radial sensory responses. Normal median ulnar F?waves. Needle EMG testing was performed upper limbs. All muscles tested showed no evidence of denervation with normal motor unit action potentials Electrodiagnostic impression: This is an abnormal study in the upper limbs 1. Electrodiagnostic findings suggestive of bilateral median mononeuropathy. This consistent with a mild to moderate bilateral carpal tunnel syndrome Multi Select Codes Neurology Neurology Interp Codes: 49959-46 Musc test done w/n test comp (interp) (2) and 38633-18 Nrv cndj test 9-10 studies (interp)
== END | disposition home or self-care (01) ==
LOC: PSN 13:07
PROVIDERS: PCP Family Medicine; Referring Provider Family Medicine; Visit Provider Family Medicine
DX: R20.0 Anesthesia of skin (principal); R20.2 Paresthesia of skin
CPT/HCPCS: 95886; 95911

== ENCOUNTER → 2024-08-27 | Outpatient (CLI) | payer MEDICARE, BC, SELFPAY ==
[2024-08-27 15:57] LABS: Microalbumin,Random Urine 28.3 mg/L (NO RANGE EST.); Microalbumin:Creatinine Ratio 395.8 mg/g CRE
[2024-08-27 16:39] LABS: Anion Gap 12 (5-15); BUN 21 mg/dL (4-19); BUN/Creat Ratio 11.9 RATIO (10-20); Calcium,Total 9.5 mg/dL (7.6-11.0); Carbon Dioxide 23.6 mmol/L (21.0-32.0); Chloride 103 mmol/L (98-108); Creatinine, Serum 1.75 mg/dL (0.70-1.20); EST Glomerular Filtration Rate 42 (>60); Glucose 124 mg/dL (70-99); Phosphorus 2.9 mg/dL (2.7-4.5); Potassium 4.1 mmol/L (3.3-5.1); Sodium Level 139 mmol/L (133-145)
== END | disposition home or self-care (01) ==
LOC: LAB 13:48
PROVIDERS: PCP Family Medicine; Referring Provider Internal Medicine Nephrology; Visit Provider Internal Medicine Nephrology
DX: N18.32 Chronic kidney disease, stage 3b (principal); R80.9 Proteinuria, unspecified
CPT/HCPCS: 36415; 80069; 82043; 82570

== ENCOUNTER → 2024-08-27 | Outpatient (CLI) | payer MEDICARE, BC, SELFPAY ==
--- NOTE | 2024-08-27 13:56 | NEURO ---
NCS and/or EMG Patient Report Ordering Doctor: Uche Jaimes DATE OF SERVICE: 08/27/24 Olman presents with complaints of numbness and weakness in both legs. He has a history of diabetes. Electrodiagnostic findings: Right peroneal motor nerve demonstrates prolonged latency with reduced amplitude normal conduction velocity. Left peroneal motor nerve demonstrates normal distal latency with reduced amplitude and reduced conduction velocity. Tibial motor nerve demonstrates normal distal latency bilaterally with borderline reduced amplitudes and reduced conduction velocities. Prolonged tibial and peroneal F?waves. Prolonged H?reflex bilaterally. Sensory responses not obtainable. Needle EMG testing was performed in the lower limbs. Motor units of increased amplitude and duration noted bilaterally in the tibialis anterior and gastrocnemius. Motor units of normal amplitude and duration. Electrodiagnostic impression: This is an abnormal study of the lower limbs 1. Electrodiagnostic findings suggestive of peripheral polyneuropathy, with motor and sensory nerve involvement. There is evidence of axonal loss and demyelination. This is likely secondary to long history of diabetes. 2. No electrodiagnostic evidence is noted for lumbosacral radiculopathy. Multi Select Codes Neurology Neurology Interp Codes: 24938-96 Musc test done w/n test comp (interp) (2) and 76665-32 Nrv cndj test 9-10 studies (interp)
== END | disposition home or self-care (01) ==
LOC: PSN 12:24
PROVIDERS: PCP Family Medicine; Referring Provider Family Medicine; Visit Provider Family Medicine
DX: R22.0 Localized swelling, mass and lump, head (principal); R20.2 Paresthesia of skin
CPT/HCPCS: 95886; 95911

== ENCOUNTER → 2024-09-08 | Outpatient (CLI) | payer MEDICARE, BC, SELFPAY ==
--- NOTE | 2024-09-08 13:53 | ART_ITS ---
Reason For Study Reason For Study: S/P LLE SFA Stent Procedure A bilateral lower extremity continuous wave Doppler with analog waveform analysis and ankle brachial indexes. Left Segmental Pressures Left brachial= 159mmHg. Left posterior tibial artery = 152mmHg. Left dorsalis pedis artery = 86mmHg. Left digit = 23 mmHg. The left posterior tibial artery waveforms are monophasic. The left dorsalis pedis waveforms are monophasic. Right Segmental Pressures Right brachial= 154mmHg. Right posterior tibial artery = 65mmHg. Right dorsalis pedis artery = 43mmHg. Right digit = 51 mmHg. The right posterior tibial artery waveforms are monophasic. The right dorsalis pedis waveforms are monophasic. Indices The right ankle brachial index by the posterior tibial artery is 0.41. The right ankle brachial index by the dorsalis pedis is 0.27. The right digital-brachial index is 0.32. The left ankle brachial index by the posterior tibial artery is 0.96. The left ankle brachial index by the dorsalis pedis is 0.54. The left digital-brachial index is 0.14. VL/Ankle Brachial Index Interpretation Summary Right NIKKI 0.41, severe arterial insufficiency. Doppler/PVR waveforms of the rig ht ankle severely diminished at rest. Left NIKKI 0.96, mild arterial insufficiency. Doppler/PVR waveforms of the left a nkle moderately diminished at rest. Ordering Physician: Avis Rolle Referring Physician: Uche Jaimes Performed By: Loy Horn RVT
--- NOTE | 2024-09-08 13:53 | ADUL_ITS ---
Reason For Study Reason For Study: HX LLE SFA Stent Left Velocities Ext Iliac Artery, dist = 82.6 cm./sec. Common Femoral Artery, mid = 82.6 cm./sec. Supf. Femoral Artery, prox = 78.9 cm./sec. SFA mid, pre stent, 180.7 cm/sec. SFA mid, prox stent, 235.6 cm/sec. SFA mid, mid stent, 148.4 cm/sec. SFA mid, distal stent, 74.0 cm/sec. SFA mid, post stent, 67.6 cm/sec. Supf. Femoral Artery, dist = 70.8 cm./sec. Profunda Femoral Artery = 66.1 cm./sec. Popliteal Artery, prox = 36.6 cm/s Popliteal Artery, mid = 25.2 cm./sec. Popliteal Artery, dist = 16.9 cm./sec. Rebecca measures 1.92cm x 1.98cm x 1.86 cm. CHAYO prox = 55.5 cm/s CHAYO mid = 64.1 cm/s CHAYO dist = 39.5 cm/s Post. Tibial Artery, prox = 70.2 cm./sec. Post Tibial Artery, mid = 65.8 cm./sec. Post Tibial Artery, dist. = 43.9 cm./sec. unable to visualize prox Coleman A Peroneal Artery, mid = 23.0 cm./sec. Peroneal Artery,dist. = 31.8 cm./sec. VL/US Art Duplex Unilat Lower Ext Interpretation Summary Left superficial femoral artery huslia vessel and stent with 50-75% stenosis. 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
== END | disposition home or self-care (01) ==
LOC: CVS 13:52
PROVIDERS: PCP Family Medicine; Referring Provider Physician Assistant; Visit Provider Physician Assistant
DX: Z48.812 Encounter for surgical aftercare following surgery on the circulatory system (principal)
CPT/HCPCS: 93922; 93926

== ENCOUNTER → 2024-11-12 | Outpatient (CLI) | payer MEDICARE, BC, SELFPAY ==
[2024-11-12 17:31] LABS: PTHIN 15 pg/mL (11-61)
[2024-11-12 17:48] LABS: Cholesterol 142 mg/dL (<=200); Low Density Lipoprotein Calc. 71 mg/dL; Triglycerides 120 mg/dL; Very Low Density Lipoprotein 24 mg/dL (5-40); Vitamin D,25 Hydroxy 42.1 ng/mL (30-100); cholesterol:hdl ratio screen 2.99
== END | disposition home or self-care (01) ==
LOC: LAB 16:04
PROVIDERS: Internal Medicine Endocrinology, Diabetes & Metabolism; PCP Family Medicine; Referring Provider Physician Assistant Medical; Visit Provider Physician Assistant Medical
DX: I25.10 Atherosclerotic heart disease of native coronary artery without angina pectoris (principal); I48.0 Paroxysmal atrial fibrillation; N18.32 Chronic kidney disease, stage 3b; E78.5 Hyperlipidemia, unspecified; E55.9 Vitamin D deficiency, unspecified
CPT/HCPCS: 36415; 80061; 82306; 83970

== ENCOUNTER → 2024-11-17 | Outpatient (CLI) | payer MEDICARE, BC, SELFPAY ==
[2024-11-17 18:01] LABS: Hematocrit 42.5 % (40-54); Hemoglobin 14.0 g/dL (13.0-16.5); Immature Granulocytes Count 0.040 X10^3/uL (0.0-0.0); Mean Corp Hgb Conc 32.9 g/dL (32-36); Mean Corpuscular Volume 94.7 fL (80-94); Mean Platelet Vol. 10.3 fl (6.2-12.0); NRBC Flagged by Analyzer 0 % (0-5); Platelet Count 180 K/mm3 (150-450); RBC Distribution Width CV 13.6 % (11.6-14.6); RBC Distribution Width SD 47.8 fl (35.1-43.9); Red Blood Count 4.49 M/mm3 (4.6-6.2); White Blood Count 8.1 K/mm3 (4.4-11.0)
== END | disposition home or self-care (01) ==
LOC: MTLAB 14:56
PROVIDERS: PCP Family Medicine; Referring Provider Physician Assistant Medical; Visit Provider Physician Assistant Medical
DX: I48.0 Paroxysmal atrial fibrillation (principal)
CPT/HCPCS: 85025

== ENCOUNTER → 2024-12-22 | Outpatient (CLI) | payer MEDICARE, BC, SELFPAY ==
--- NOTE | 2024-12-22 13:41 | ADUL_ITS ---
Reason For Study Reason For Study: s/p Lt SFA stent Left Velocities Ext Iliac Artery, dist = 87 cm./sec. Common Femoral Artery, mid = 86 cm./sec. Supf. Femoral Artery, prox = 109 cm./sec. SFA mid, pre stent, 133 cm/sec. SFA mid, prox stent, 303 cm/sec. SFA mid, mid stent, 131 cm/sec. SFA mid, distal stent, 71 cm/sec. SFA mid, post stent, 36 cm/sec. Supf. Femoral Artery, dist = 36 cm./sec. Profunda Femoral Artery = 91 cm./sec. Lt Rebecca measures 1.95cm x 2.19cm x 1.84cm Unable to demonstrate flow Lt CHAYO prox/mid. Popliteal Artery, mid = 31 cm./sec. Post. Tibial Artery, prox = 69 cm./sec. Post Tibial Artery, mid = 29 cm./sec. Post Tibial Artery, dist. = 76 cm./sec. Peroneal Artery, prox = 77 cm./sec. Peroneal Artery, mid = 50 cm./sec. Peroneal Artery,dist. = 36 cm./sec. Ant. Tibial Artery, distal = 27 cm./sec. VL/US Art Duplex Unilat Lower Ext Interpretation Summary Left superficial femoral artery stent patent with >50% stenosis. Left anterior tibial artery occluded proximal/mid. Ordering Physician: Avis Rolle Referring Physician: Uche Jaimes Performed By: Milagro Contreras, WILIAM, RVT
--- NOTE | 2024-12-22 13:41 | ART_ITS ---
Reason For Study Reason For Study: s/p Lt SFA stent Procedure A bilateral lower extremity continuous wave Doppler with analog waveform analysis and ankle brachial indexes. Left Segmental Pressures Left brachial= 136mmHg. Left posterior tibial artery = 120mmHg. Left dorsalis pedis artery = 80mmHg. Left digit = 26 mmHg. Right Segmental Pressures Right brachial= 138mmHg. Right posterior tibial artery = 27mmHg. Right dorsalis pedis artery = 81mmHg. Right digit = 54 mmHg. Indices The right ankle brachial index by the posterior tibial artery is 0.20. The right ankle brachial index by the dorsalis pedis is 0.59. The right digital-brachial index is 0.39. The left ankle brachial index by the posterior tibial artery is 0.87. The left ankle brachial index by the dorsalis pedis is 0.58. The left digital-brachial index is 0.19. VL/Ankle Brachial Index Interpretation Summary Right NIKKI 0.59, moderate arterial insufficiency. Doppler/PVR waveforms of the r ight ankle moderately diminished at rest. Left INKKI 0.87, moderate arterial insufficiency. Doppler/PVR waveforms of the le ft ankle moderately diminished at rest. Ordering Physician: Avis Rolle Referring Physician: Avis Rolle Performed By: Milagro Contreras RDCS/RVT
== END | disposition home or self-care (01) ==
PROVIDERS: PCP Family Medicine; Referring Provider Physician Assistant; Visit Provider Physician Assistant
DX: I73.9 Peripheral vascular disease, unspecified (principal); Z95.820 Peripheral vascular angioplasty status with implants and grafts
CPT/HCPCS: 93922; 93926

== ENCOUNTER → 2025-01-26 | Outpatient (CLI) | payer MEDICARE, BC, SELFPAY ==
[2025-01-26 15:35] LABS: PSA,Total - Annual Screen 0.34 ng/mL (0.02-4.00)
== END | disposition home or self-care (01) ==
PROVIDERS: PCP Family Medicine; Referring Provider Urology; Visit Provider Urology
DX: Z12.5 Encounter for screening for malignant neoplasm of prostate (principal)
CPT/HCPCS: 36415; 84153; G0103